=== PATIENT | male | born 1950 | race African-American/Black ===

== ENCOUNTER → 2016-11-13 | Emergency (ER) | payer MEDICARE, MEDICAID ==
[~2016-11-13] VITALS: Ht 177.8 cm; Wt 95.3 kg
[~2016-11-13] MED LIST: ALBUTEROL SULF8.5 GM INH; APRESOLINE50 MG ORAL; ARANESP200 MCG/0. IV; ASPIRIN81 MG ORAL; CARAFATE1 G1 ORAL; COLACE100 MG ORAL; COREG25 MG ORAL; CYMBALTA30 MG ORAL; DEPAKOTE250 MG PO; FAMOTIDINE20 MG ORAL; FERROUS SULFAT325 MG ORAL; FLOMAX0.4 MG ORAL; FLUTICASONE PRO16 G1 NASAL; FUROSEMIDE20 M1 ORAL; GABAPENTIN600 MG ORAL; JANUVIA25 MG ORAL; LEVEMIR FL100 UNIT/1 SUBQ; LIALDA1.2 GM ORAL; LIPITOR20 MG ORAL; LIQUACEL 100 LI30 ML PO; LISINOPRIL20 MG ORAL; MIRALAX17 G2 ORAL; MULTIVITAMINS1 EAC2 ORAL; NITROSTAT0.4 M1 SL; NORVASC5 MG ORAL; NOVOLIN 70/305 UNIT1 SUBQ; NOVOLIN 70100 UNIT/1; NOVOLOG MI100 UNIT/4; NOVOLOG100 UNITS1 SUBQ; PANTOPRAZOLE SO40 MG; PROAIR HFA8.5 GM; PROTONIX40 MG ORAL; RISPERDAL1 MG PO; RISPERIDONE1 MG; RISPERIDONE2 MG; SERTRALINE HCL50 MG; SPIRIVA18 MCG; STARLIX60 MG ORAL; TRAZODONE HCL150 MG ORAL; VENOFER50 MG/2.5 IV; VITAMIN C500 M1 ORAL; ZEMPLAR5 MCG/ML IV; ZESTORETIC 20/251 EA ORAL; ZOLOFT50 MG ORAL
[2016-11-13 18:33] VITALS: BP 166/56
--- NOTE | 2016-11-13 18:33 | Emergency Room Report ---
History of Present Illness General Chief Complaint: Chest Pain Source: Patient, EMS Present Illness HPI Patient presents via EMS from dialysis. Dialysis called EMS because the patient is complaining about chest pain. When they arrived there the patient states he did not have any chest pain. They did an EKG that showed LVH but no STEMI. The patient was brought to our facility here. The patient's refusing further care at this time. He's refused care multiple times before. Risk factors: dialysis, diabetes, HTN and prior CAD. Patient refuses to answer any other questions. Allergies: Coded Allergies: No Known Allergies (Verified , 11/24/07) Patient History Limited by: other - patient refusing to answer Past Medical History: see triage record Social History: Reports: alcohol use, Denies: smoking Social History Narrative assisted living Reviewed Nursing Documentation: PMH: Agreed, PSxH: Agreed Nursing Documentation-PMH Hx Cardiac Problems: Yes Hx Hypertension: Yes Hx Asthma: Yes Hx COPD: Yes Hx Diabetes: Yes Hx Cancer: No Hx Gastrointestinal Problems: No Hx Dialysis: Yes Hx Neurological Problems: No Hx Meningitis: Yes Hx Headaches: Yes Hx Fatigue: Yes Review of Systems All Other Systems: limited Physical Exam Vital Signs Date Time Temp Pulse Resp B/P Pulse Ox O2 Delivery O2 Flow Rate FiO2 11/13/16 18:17 97.2 84 18 166/56 98 Room Air Sp02 EP Interpretation: reviewed, normal General Appearance: well appearing, no apparent distress Head: normocephalic, atraumatic Eyes: bilateral eye PERRL, bilateral eye normal inspection ENT: hearing grossly normal, normal voice, moist mucus membranes Neck: full range of motion, supple Respiratory: rales Cardiovascular #1: regular rate, rhythm Cardiovascular #2: 2+ radial (L) Gastrointestinal: normal bowel sounds, soft Musculoskeletal: gait/station normal - with limp, no calf tenderness Neurologic: alert, other - walks with limp (L leg) Psychiatric: no suicidal/homicidal ideation, depressed affect - and refusing care Skin: no rash Medical Decision Making Diagnostic Impression: Primary Impression: Chest pain Qualified Codes: R07.9 - Chest pain, unspecified Additional Impression: ESRD (end stage renal disease) on dialysis ER Course The patient had chest pain in dialysis however is refusing to have care here at this time. I've explained the risk of . He does not believe this. He states he is pain-free at this time. He is not short of breath. He understands this risk but doesn't believe me. He is signing out AGAINST MEDICAL ADVICE. Prehospital EKG was reviewed by me. It showed sinus rhythm with normal intervals and LVH (similar to 07/18/15). EKG Diagnostic Results Rate: normal Rhythm: NSR ST Segments: no acute changes - LVH Rhythm Strip Diag. Results EP Interpretation: yes Rhythm: NSR, no PVC's, no ectopy, other - from EMS EKG - HR 2 Last Vital Signs Date Time Temp Pulse Resp B/P Pulse Ox O2 Delivery O2 Flow Rate FiO2 11/13/16 18:33 97.2 18 166/56 98 Room Air 11/13/16 18:17 84 Status: unchanged Disposition: AGAINST MEDICAL ADVICE Condition: Unknown Yimi Jesus M.D. Nov 13, 2016 18:33
== END | disposition home or self-care (01) ==
LOC: EDUNIT# 18:17 → EDBD 18:18 → EMR 18:33
DX: R07.9 Chest pain, unspecified (principal); I12.0 Hypertensive chronic kidney disease with stage 5 chronic kidney disease or end stage renal disease; N18.6 End stage renal disease; Z99.2 Dependence on renal dialysis; J44.9 Chronic obstructive pulmonary disease, unspecified; J45.909 Unspecified asthma, uncomplicated; Z86.61 Personal history of infections of the central nervous system
CPT/HCPCS: 99282

== ENCOUNTER 2017-01-12 21:13 | Inpatient (IN) | payer MEDICARE, MEDICAID ==
[~2017-01-12] VITALS: Ht 182.9 cm; Wt 107.0 kg
[~2017-01-12 21:13] MED LIST changes: -CYMBALTA30 MG ORAL; -DEPAKOTE250 MG PO; -FAMOTIDINE20 MG ORAL; -FLUTICASONE PRO16 G1 NASAL; -FUROSEMIDE20 M1 ORAL; -GABAPENTIN600 MG ORAL; -LIALDA1.2 GM ORAL; -LISINOPRIL20 MG ORAL; -MULTIVITAMINS1 EAC2 ORAL; -RISPERDAL1 MG PO; -TRAZODONE HCL150 MG ORAL; -VITAMIN C500 M1 ORAL
[2017-01-12 21:15] VITALS: BP 218/81
--- NOTE | 2017-01-12 21:27 | Emergency Room Report ---
History of Present Illness General Chief Complaint: Dyspnea/Respdistress Source: Patient, Medical Record, EMS Present Illness HPI Is a 66-year-old male with multiple medical history including renal failure on hemodialysis, Thursday, , and Thursday. He presents with increasing shortness of breath started today. Worse tonight. Unable to lay flat. Denies any fever or chills. Ages [place] short of breath but no nausea no vomiting. No chest pain. Similar symptom in the past. Allergies: Coded Allergies: No Known Allergies (Verified , 11/24/07) Patient History Past Medical History: see triage record, old chart reviewed, DM, HTN, CHF, renal disease, dialysis Past Surgical History: other Pertinent Family History: none Social History: Denies: smoking Immunizations: other Reviewed Nursing Documentation: PMH: Agreed, PSxH: Agreed Nursing Documentation-PMH Hx Cardiac Problems: Yes Hx Hypertension: Yes Hx Asthma: Yes Hx COPD: Yes Hx Diabetes: Yes Hx Cancer: No Hx Gastrointestinal Problems: No Hx Dialysis: Yes Hx Neurological Problems: No Hx Meningitis: Yes Hx Headaches: Yes Hx Fatigue: Yes Review of Systems Eye: Denies: blurred vision, eye pain ENT: Denies: ear pain, nose congestion, throat swelling Respiratory: Reports: cough, shortness of breath Cardiovascular: Denies: chest pain, palpitations Gastrointestinal: Denies: abdominal pain, diarrhea, nausea, vomiting Musculoskeletal: Denies: back pain, joint pain Skin: Denies: rash Neurological: Denies: headache, numbness Endocrine: Denies: increased thirst, increased urine Hematologic/Lymphatic: Denies: easy bruising All Other Systems: negative except mentioned in HPI Physical Exam Vital Signs Date Time Temp Pulse Resp B/P Pulse Ox O2 Delivery O2 Flow Rate FiO2 01/12/17 21:06 90 20 218/81 100 vitals with hypotension and hypoxia Sp02 EP Interpretation: abnormal General Appearance: alert, moderate distress Head: normocephalic, atraumatic Eyes: bilateral eye EOMI, bilateral eye PERRL ENT: hearing grossly normal, normal pharynx Neck: full range of motion, supple, no meningismus Respiratory: chest non-tender, decreased breath sounds, accessory muscle use, rales Cardiovascular #1: regular rate, rhythm, no murmur Gastrointestinal: normal bowel sounds, non tender, no mass, no organomegaly, no bruit, non-distended Musculoskeletal: back normal, normal range of motion, swelling - 1+ pitting edema Neurologic: alert, oriented x3 Psychiatric: mood/affect normal Skin: warm/dry Procedures Additional Procedure Procedure Narrative Procedure: IV access Indication: Nursing staff unable to get IV access. Description: I placed an 18-gauge left EJ. Patient tolerated procedure without a problem. We will get blood and gave medicine for this. Medical Decision Making Diagnostic Impression: Primary Impression: CHF (congestive heart failure) Qualified Codes: I50.9 - Heart failure, unspecified Additional Impressions: Acute and chronic respiratory failure Renal failure (ARF), acute on chronic Hypertensive urgency ER Course Patient present with CHF and fluid overloaded. He would need dialysis. There is no evidence of hyperkalemia. Patient felt better now. We'll admit for dialysis. Lab Results Impression labs show elevated BNP EKG Diagnostic Results Rate: normal Rhythm: NSR ST Segments: other - ?peaked T wave Rhythm Strip Diag. Results EP Interpretation: yes Rate: 98 Rhythm: NSR, no PVC's, no ectopy Chest X-Ray Diagnostic Results EP Interpretation: Yes Findings: no pneumothorax, other - CM with effusion Number of Views: 1 Last Vital Signs Date Time Temp Pulse Resp B/P Pulse Ox O2 Delivery O2 Flow Rate FiO2 01/12/17 21:06 90 20 218/81 100 Status: improved Disposition: ADMITTED INPATIENT Condition: Serious ARTEM ANDRADE M.D. Jan 12, 2017 21:27
[2017-01-12 22:53] LABS: MEAN CORPUSCULAR HEMOGLOBIN 28.6 PG (27.0-31.0); MEAN CORPUSCULAR HGB CONC 29.2 G/DL (32.0-36.0); MEAN CORPUSCULAR VOLUME 98 FL (80-99); MEAN PLATELET VOLUME 6.7 FL (6.5-10.1); PLATELET COUNT 145 K/UL (150-450); RED BLOOD COUNT 4.56 M/UL (4.70-6.10); WHITE BLOOD COUNT 8.9 K/UL (4.8-10.8)
[2017-01-12 23:01] LABS: PROTHROMBIN TIME 10.4 SEC (9.30-11.50)
[2017-01-12 23:08] LABS: ALBUMIN/GLOBULIN RATIO 0.9 (1.0-2.7); CALCIUM 8.7 mg/dL (8.6-10.2); CREATININE 8.1 mg/dL (0.7-1.2); GLOMERULAR FILTRATION RATE 8.1 mL/min (>60); TOTAL PROTEIN 8.1 g/dL (6.6-8.7); TROPONIN I < 0.30 ng/mL (<=0.30)
[2017-01-12 23:13] VITALS: BP 194/69
[2017-01-12 23:17] LABS: BASOPHILS % (MANUAL) 1 % (0-2); EOSINOPHILS % (MANUAL) 1 % (0-3); LYMPHOCYTES % (MANUAL) 9 % (20-45); NEUTROPHILS % (MANUAL) 84 % (45-75); TOTAL CELLS COUNTED 100
[2017-01-12 23:19] LABS: CKMB 3.3 ng/mL (< 6.7)
[2017-01-12 23:20] LABS: ANISOCYTOSIS 1+; BAND NEUTROPHILS % (MANUAL) 0 % (0-8); PLATELET ESTIMATE DECREASED; PLATELET MORPHOLOGY NORMAL
[2017-01-12] MEDS ORDERED: Miralax 17gm pkt ORAL PRN (23:45)
[2017-01-12] MEDS ORDERED: DuoNeb 0.5-3(2.5)mg/3ml neb HHN PRN (23:45)
[2017-01-13] VITALS (11 sets, daily range): BP systolic 123–189; BP diastolic 42–62
[2017-01-13] MEDS ORDERED: VITAMIN C500 M1 ORAL (00:52)
[2017-01-13] MEDS ORDERED: FLUTICASONE PRO16 G1 NASAL (00:52)
[2017-01-13] MEDS ORDERED: GABAPENTIN600 MG ORAL (00:52)
[2017-01-13] MEDS ORDERED: TRAZODONE HCL150 MG ORAL (00:52)
[2017-01-13] MEDS ORDERED: FAMOTIDINE20 MG ORAL (00:52)
[2017-01-13] MEDS ORDERED: LIALDA1.2 GM ORAL (00:52)
[2017-01-13] MEDS ORDERED: LISINOPRIL20 MG ORAL (00:52)
[2017-01-13] MEDS ORDERED: CYMBALTA30 MG ORAL (00:52)
[2017-01-13] MEDS ORDERED: DEPAKOTE250 MG PO (00:52)
[2017-01-13] MEDS ORDERED: MULTIVITAMINS1 EAC2 ORAL (00:52)
[2017-01-13] MEDS ORDERED: RISPERDAL1 MG PO (00:52)
[2017-01-13] MEDS ORDERED: FUROSEMIDE20 M1 ORAL (01:56)
[2017-01-13] MEDS: HydrALAZINE 50mg tab ORAL SCH ×3 (06:00→21:12)
[2017-01-13] MEDS: NovoLOG Insulin Flexpen SUBQ SCH ×4 (06:23→21:11)
[2017-01-13 08:19] LABS: BASOPHILS % (AUTO) 1.3 % (0.0-2.0); EOSINOPHILS % (AUTO) 0.9 % (0.0-3.0); LYMPHOCYTES % (AUTO) 13.7 % (20.0-45.0); MEAN CORPUSCULAR HEMOGLOBIN 28.4 PG (27.0-31.0); MEAN CORPUSCULAR HGB CONC 29.1 G/DL (32.0-36.0); MEAN CORPUSCULAR VOLUME 98 FL (80-99); MEAN PLATELET VOLUME 7.6 FL (6.5-10.1); MONOCYTES % (AUTO) 6.9 % (1.0-10.0); NEUTROPHILS % (AUTO) 77.3 % (45.0-75.0); PLATELET COUNT 167 K/UL (150-450); RED BLOOD COUNT 4.79 M/UL (4.70-6.10); RED CELL DISTRIBUTION WIDTH 19.6 % (11.6-14.8); WHITE BLOOD COUNT 6.8 K/UL (4.8-10.8)
[2017-01-13 08:36] LABS: CREATININE 8.4 mg/dL (0.7-1.2); GLOMERULAR FILTRATION RATE 7.9 mL/min (>60); PHOSPHORUS 8.6 mg/dL (2.5-4.8); POTASSIUM 5.4 mEQ/L (3.4-4.9); TROPONIN I < 0.30 ng/mL (<=0.30)
[2017-01-13] MEDS: Nateglinide 60mg tab ORAL SCH ×3 (09:30→18:00)
[2017-01-13] MEDS: Sucralfate 1gm tab ORAL SCH ×4 (09:30→21:12)
[2017-01-13] MEDS: Aspirin Baby 81mg ORAL SCH (09:30)
[2017-01-13] MEDS: Carvedilol 25mg Tab ORAL SCH ×2 (09:46→21:12)
--- NOTE | 2017-01-13 11:19 | Cardiology Report ---
APPROVED REPORT EKG Measurement Heart [id number] Normal sinus rhythm Possible Left atrial enlargement Anteroseptal infarct, age undetermined Abnormal ECG
--- NOTE | 2017-01-13 11:21 | Diagnostic Imaging Report ---
Indication: SOB Technique: One view of the chest Comparison: 04/26/2016 Findings: Previously demonstrated left jugular tunneled dialysis catheter is no longer evident. There is now a right jugular tunneled dialysis catheter in place. Interim development of a large left pleural effusion, occupying approximately 50% of the left the thorax. There is generalized interstitial congestion bilaterally. There is a small right-sided pleural effusion as well. There is mild thoracic scoliotic deformity Impression: Large left pleural effusion Small right pleural effusion Interstitial edema Other findings as noted, including tunneled dialysis catheter, scoliosis
--- NOTE | 2017-01-13 12:07 | Cardiology Report ---
APPROVED REPORT EXAM: Two-dimensional and M-mode echocardiogram with Doppler and color Doppler. INDICATION Left ventricular function M-Mode DIMENSIONS IVSd1.7 (0.7-1.1cm)Left Atrium (MM)4.0 (1.6-4.0cm) LVDd5.3 (3.5-5.6cm)Aortic Root3.1 (2.0-3.7cm) PWd1.0 (0.7-1.1cm)Aortic Cusp Exc.2.0 (1.5-2.0cm) LVDs3.0 (2.5-4.0cm) PWs0.7 cm Normal left ventricular chamber size, systolic function and wall motion. Left ventricular ejection fraction estimated to be 55-60%. Moderate left ventricular hypertrophy. Large posterior pleural effusion. Mild bi-atrial enlargement by 2D. Mild focal aortic valve sclerosis with adequate cusp excursion Thickened mitral valve leaflets with normal excursion. Mild mitral annulus and aortic root calcification. Pulmonic valve not well visualized. Normal tricuspid valve structure. IVC dilated at 2.8cm with no physiologic collapse. RA pressure of 20mmHg. A color flow and spectral Doppler study was performed and revealed: Mild aortic regurgitation. Moderate mitral regurgitation. Normal left ventricular diastolic function. Trace tricuspid regurgitation. Tricuspid systolic velocities suggests peak right ventricular systolic pressure of 34 mmHg
--- NOTE | 2017-01-13 12:49 | Cardiology Progress Note ---
Assessment/Plan Assessment/Plan dyspnea left sided pelural effusion CHF with preserved lv systolic fucntion negative ischemia eval cedluz marina 2016 esrd on hd dm htn hyperl;ipidmai needs dialysis thoracentesis/ med echo ekg noted compared to repvisou no change sicgregg 2016 ar deniz [id number] Objective Last 24 Hour Vital Signs Date Time Temp Pulse Resp B/P Pulse Ox O2 Delivery O2 Flow Rate FiO2 01/13/17 09:46 81 148/44 01/13/17 09:32 77 134/49 01/13/17 07:32 97.3 74 18 139/62 100 Room Air 01/13/17 06:24 99.3 72 22 129/51 98 Nasal Cannula 2.0 01/13/17 06:00 158/50 01/13/17 05:06 99.3 72 22 172/60 98 Nasal Cannula 2.5 01/13/17 04:22 207/61 01/13/17 03:33 99.3 96 25 187/55 98 Nasal Cannula 4.0 01/13/17 00:23 99.3 96 27 189/47 97 Nasal Cannula 4.0 01/13/17 00:03 198/49 01/12/17 23:13 99.3 95 30 194/69 92 Nasal Cannula 4.0 01/12/17 21:15 99.3 90 35 218/81 100 Nasal Cannula 2.0 90 01/12/17 21:15 90 20 Nasal Cannula 2.0 90 01/12/17 21:06 90 20 218/81 100 Intake and Output 01/12/17 01/13/17 19:00 07:00 # Voids 2 Laboratory Tests Test 01/12/17 22:40 01/13/17 08:00 White Blood Count 8.9 K/UL (4.8-10.8) 6.8 K/UL (4.8-10.8) Red Blood Count 4.56 M/UL (4.70-6.10) L 4.79 M/UL (4.70-6.10) Hemoglobin 13.1 G/DL (14.2-18.0) L 13.6 G/DL (14.2-18.0) L Hematocrit 44.7 % (42.0-52.0) 46.8 % (42.0-52.0) Mean Corpuscular Volume 98 FL (80-99) 98 FL (80-99) Mean Corpuscular Hemoglobin 28.6 PG (27.0-31.0) 28.4 PG (27.0-31.0) Mean Corpuscular Hemoglobin Concent 29.2 G/DL (32.0-36.0) L 29.1 G/DL (32.0-36.0) L Red Cell Distribution Width 19.0 % (11.6-14.8) H 19.6 % (11.6-14.8) H Platelet Count 145 K/UL (150-450) L 167 K/UL (150-450) Mean Platelet Volume 6.7 FL (6.5-10.1) 7.6 FL (6.5-10.1) Neutrophils (%) (Auto) % (45.0-75.0) 77.3 % (45.0-75.0) H Lymphocytes (%) (Auto) % (20.0-45.0) 13.7 % (20.0-45.0) L Monocytes (%) (Auto) % (1.0-10.0) 6.9 % (1.0-10.0) Eosinophils (%) (Auto) % (0.0-3.0) 0.9 % (0.0-3.0) Basophils (%) (Auto) % (0.0-2.0) 1.3 % (0.0-2.0) Differential Total Cells Counted 100 Neutrophils % (Manual) 84 % (45-75) H Lymphocytes % (Manual) 9 % (20-45) L Monocytes % (Manual) 5 % (1-10) Eosinophils % (Manual) 1 % (0-3) Basophils % (Manual) 1 % (0-2) Band Neutrophils 0 % (0-8) Platelet Estimate Decreased L Platelet Morphology Normal Anisocytosis 1+ Prothrombin Time 10.4 SEC (9.30-11.50) Prothromb Time International Ratio 1.0 (0.9-1.1) Activated Partial Thromboplast Time 28 SEC (23-33) Sodium Level 139 mEQ/L (135-145) 141 mEQ/L (135-145) Potassium Level 5.0 mEQ/L (3.4-4.9) H 5.4 mEQ/L (3.4-4.9) H Chloride Level 97 mEQ/L (98-107) L 100 mEQ/L (98-107) Carbon Dioxide Level 22 mEQ/L (20-30) 22 mEQ/L (20-30) Anion Gap 20 (5-15) H 19 (5-15) H Blood Urea Nitrogen 75 mg/dL (7-23) H 77 mg/dL (7-23) H Creatinine 8.1 mg/dL (0.7-1.2) H 8.4 mg/dL (0.7-1.2) H Estimat Glomerular Filtration Rate 8.1 mL/min (>60) 7.9 mL/min (>60) Glucose Level 118 mg/dL (74-106) H 137 mg/dL (74-106) H Calcium Level 8.7 mg/dL (8.6-10.2) 9.0 mg/dL (8.6-10.2) Total Bilirubin 0.3 mg/dL (0.0-1.2) Aspartate Amino Transf (AST/SGOT) 23 U/L (5-40) Alanine Aminotransferase (ALT/SGPT) 27 U/L (3-41) Alkaline Phosphatase 86 U/L (40-129) Total Creatine Kinase 68 U/L (38-174) Creatine Kinase MB 3.3 ng/mL (< 6.7) Creatine Kinase MB Relative Index 4.8 Troponin I < 0.30 ng/mL (<=0.30) < 0.30 ng/mL (<=0.30) Pro-B-Type Natriuretic Peptide 92432 pg/mL (0-125) H Total Protein 8.1 g/dL (6.6-8.7) Albumin 4.0 g/dL (3.5-5.2) 4.0 g/dL (3.5-5.2) Globulin 4.1 g/dL Albumin/Globulin Ratio 0.9 (1.0-2.7) L Phosphorus Level 8.6 mg/dL (2.5-4.8) H RAMSES HERNANDEZ Jan 13, 2017 12:49
[2017-01-13] MEDS ORDERED: Tamsulosin 0.4mg cap ORAL SCH (21:00)
[2017-01-13] MEDS ORDERED: Atorvastatin 20mg tab ORAL SCH (21:00)
[2017-01-13] MEDS: Heparin 5000 units/ml inj SUBQ SCH (21:10)
--- NOTE | 2017-01-13 21:48 | History and Physical ---
History of Present Illness General Date patient seen: Jan 13, 2017 Reason for Hospitalization: Dyspnea/Respdistress Present Illness HPI 66-year-old male with pmhx of DM, HTN, renal failure on hemodialysis, presented with increasing shortness of breath started,unable to lay flat. Denies any fever or chills. She was found to to have pulmonary edema and pleural effusion and admitted for further work up. Allergies: Coded Allergies: No Known Allergies (Verified , 11/24/07) Medication History Scheduled Amlodipine Besylate (Norvasc), 5 MG ORAL BID Aspirin* (Aspirin*), 162 MG ORAL DAILY Atorvastatin Calcium* (Lipitor*), 20 MG ORAL BEDTIME Carvedilol (Coreg), 25 MG ORAL EVERY 12 HOURS Darbepoetin Yao in Polysorbat (Aranesp), 200 MCG IV ONCE A WEEK, (Reported) Docusate Sodium* (Colace*), 100 MG ORAL TWICE A DAY Ferrous Sulfate* (Ferrous Sulfate*), 325 MG ORAL DAILY Furosemide* (Lasix*), 20 MG ORAL DAILY, (Reported) Hydralazine HCl (Hydralazine HCl), 50 MG ORAL Q8HR Insulin Aspart (Novolog Flexpen), 0 UNITS SUBQ BEFORE MEALS AND HS Insulin Detemir (Levemir Flexpen), 30 UNITS SUBQ Q24H Insulin Human Isophan/Regular (Humulin 70-30 Vial), Unknown Dose SUBQ PRN, ( Reported) Lisinopril/Hydrochlorothiazide (Zestoretic 20-25 mg Tablet), Unknown Dose ORAL DAILY, (Reported) Nateglinide* (Starlix*), 60 MG ORAL THREE TIMES A DAY Pantoprazole* (Protonix*), 40 MG ORAL DAILY Sertraline Hcl* (Zoloft*), 25 MG ORAL DAILY Sitagliptin* (Januvia*), 25 MG ORAL DAILY Sucralfate* (Carafate*), 1 GM ORAL FOUR TIMES A DAY Tamsulosin HCl (Flomax), 0.4 MG ORAL BEDTIME Scheduled PRN Albuterol Sulfate* (Albuterol Sulfate Mdi*), 2 PUFF INH Q4H PRN for Shortness of Breath Nitroglycerin (Nitrostat), 0.4 MG SL Q5M PRN for Prn Chest Pain Miscellaneous Medications Albuterol Sulfate* (Proair Hfa*), (Reported) Amino Acids/Protein Hydrolys (Liquacel 100 Liquid Packet), 30 ML PO, (Reported) Hum Insulin Nph/Reg Insulin Hm (Novolin 70-30 100 Unit/Ml Vial), (Reported) Insuln Asp Prt/Insulin Aspart (Novolog Mix 70-30 Vial), (Reported) Iron Sucrose Complex (Venofer), 50 MG IV, (Reported) Pantoprazole* (Pantoprazole*), (Reported) Paricalcitol (Zemplar), 5 MCG IV, (Reported) Risperidone (Risperidone), (Reported) Risperidone (Risperidone), (Reported) Sertraline Hcl* (Zoloft*), (Reported) Tiotropium Sarles* (Spiriva*), (Reported) Patient History Healthcare decision maker Resuscitation status Full Code Advanced Directive on File Past Medical/Surgical History Past Medical/Surgical History: (1) ESRD (end stage renal disease) on dialysis (2) Diabetes Review of Systems All Other Systems: negative except mentioned in HPI Physical Exam General Appearance: WD/WN Lines, tubes and drains: peripheral HEENT: normocephalic, atraumatic Neck: non-tender, normal alignment Respiratory/Chest: rhonchi - bilaterally Cardiovascular/Chest: normal peripheral pulses, normal rate Abdomen: normal bowel sounds, non tender Genitourinary/Rectal: normal genital exam Extremities: normal range of motion Last 24 Hour Vital Signs Date Time Temp Pulse Resp B/P Pulse Ox O2 Delivery O2 Flow Rate FiO2 01/13/17 21:12 127/54 01/13/17 21:12 93 127/54 01/13/17 20:33 93 18 Nasal Cannula 2.0 28 01/13/17 20:00 97.7 78 18 142/54 Nasal Cannula 2.0 100 01/13/17 19:45 Room Air 01/13/17 16:25 Room Air 01/13/17 16:00 64 01/13/17 16:00 98.1 66 18 127/54 Nasal Cannula 2.0 100 01/13/17 15:09 64 01/13/17 14:55 80 21 126/40 100 Nasal Cannula 2.0 01/13/17 13:07 97.8 69 21 123/58 100 Nasal Cannula 2.0 01/13/17 11:00 97.3 81 21 146/42 100 Room Air 2.0 90 3/21/17 09:46 81 148/44 01/13/17 09:32 77 134/49 01/13/17 09:15 97.3 80 21 148/44 100 Room Air 2.0 90 01/13/17 07:32 97.3 74 18 139/62 100 Room Air 01/13/17 06:24 99.3 72 22 129/51 98 Nasal Cannula 2.0 01/13/17 06:00 158/50 01/13/17 05:06 99.3 72 22 172/60 98 Nasal Cannula 2.5 01/13/17 04:22 207/61 01/13/17 03:33 99.3 96 25 187/55 98 Nasal Cannula 4.0 01/13/17 00:23 99.3 96 27 189/47 97 Nasal Cannula 4.0 01/13/17 00:03 198/49 01/12/17 23:13 99.3 95 30 194/69 92 Nasal Cannula 4.0 Intake and Output 01/12/17 01/13/17 19:00 07:00 # Voids 2 Laboratory Tests Test 01/12/17 22:40 01/13/17 08:00 White Blood Count 8.9 K/UL (4.8-10.8) 6.8 K/UL (4.8-10.8) Red Blood Count 4.56 M/UL (4.70-6.10) L 4.79 M/UL (4.70-6.10) Hemoglobin 13.1 G/DL (14.2-18.0) L 13.6 G/DL (14.2-18.0) L Hematocrit 44.7 % (42.0-52.0) 46.8 % (42.0-52.0) Mean Corpuscular Volume 98 FL (80-99) 98 FL (80-99) Mean Corpuscular Hemoglobin 28.6 PG (27.0-31.0) 28.4 PG (27.0-31.0) Mean Corpuscular Hemoglobin Concent 29.2 G/DL (32.0-36.0) L 29.1 G/DL (32.0-36.0) L Red Cell Distribution Width 19.0 % (11.6-14.8) H 19.6 % (11.6-14.8) H Platelet Count 145 K/UL (150-450) L 167 K/UL (150-450) Mean Platelet Volume 6.7 FL (6.5-10.1) 7.6 FL (6.5-10.1) Neutrophils (%) (Auto) % (45.0-75.0) 77.3 % (45.0-75.0) H Lymphocytes (%) (Auto) % (20.0-45.0) 13.7 % (20.0-45.0) L Monocytes (%) (Auto) % (1.0-10.0) 6.9 % (1.0-10.0) Eosinophils (%) (Auto) % (0.0-3.0) 0.9 % (0.0-3.0) Basophils (%) (Auto) % (0.0-2.0) 1.3 % (0.0-2.0) Differential Total Cells Counted 100 Neutrophils % (Manual) 84 % (45-75) H Lymphocytes % (Manual) 9 % (20-45) L Monocytes % (Manual) 5 % (1-10) Eosinophils % (Manual) 1 % (0-3) Basophils % (Manual) 1 % (0-2) Band Neutrophils 0 % (0-8) Platelet Estimate Decreased L Platelet Morphology Normal Anisocytosis 1+ Prothrombin Time 10.4 SEC (9.30-11.50) Prothromb Time International Ratio 1.0 (0.9-1.1) Activated Partial Thromboplast Time 28 SEC (23-33) Sodium Level 139 mEQ/L (135-145) 141 mEQ/L (135-145) Potassium Level 5.0 mEQ/L (3.4-4.9) H 5.4 mEQ/L (3.4-4.9) H Chloride Level 97 mEQ/L (98-107) L 100 mEQ/L (98-107) Carbon Dioxide Level 22 mEQ/L (20-30) 22 mEQ/L (20-30) Anion Gap 20 (5-15) H 19 (5-15) H Blood Urea Nitrogen 75 mg/dL (7-23) H 77 mg/dL (7-23) H Creatinine 8.1 mg/dL (0.7-1.2) H 8.4 mg/dL (0.7-1.2) H Estimat Glomerular Filtration Rate 8.1 mL/min (>60) 7.9 mL/min (>60) Glucose Level 118 mg/dL (74-106) H 137 mg/dL (74-106) H Calcium Level 8.7 mg/dL (8.6-10.2) 9.0 mg/dL (8.6-10.2) Total Bilirubin 0.3 mg/dL (0.0-1.2) Aspartate Amino Transf (AST/SGOT) 23 U/L (5-40) Alanine Aminotransferase (ALT/SGPT) 27 U/L (3-41) Alkaline Phosphatase 86 U/L (40-129) Total Creatine Kinase 68 U/L (38-174) Creatine Kinase MB 3.3 ng/mL (< 6.7) Creatine Kinase MB Relative Index 4.8 Troponin I < 0.30 ng/mL (<=0.30) < 0.30 ng/mL (<=0.30) Pro-B-Type Natriuretic Peptide 06392 pg/mL (0-125) H Total Protein 8.1 g/dL (6.6-8.7) Albumin 4.0 g/dL (3.5-5.2) 4.0 g/dL (3.5-5.2) Globulin 4.1 g/dL Albumin/Globulin Ratio 0.9 (1.0-2.7) L Phosphorus Level 8.6 mg/dL (2.5-4.8) H Height (Feet): 6 Height (Inches): 0.00 Weight (Pounds): 236 Medications Current Medications Medications (Trade) Dose Ordered Sig/Praveen Route PRN Reason Start Time Stop Time Status Last Admin Dose Admin Acetaminophen (Tylenol) 650 mg Q4H PRN ORAL Fever 01/12/17 23:45 02/11/17 23:44 Albuterol/ Ipratropium (DuoNeb 0.5-3(2.5)mg/3ml) 3 ml EVERY 4 HOURS PRN HHN Shortness of Breath 01/12/17 23:45 01/17/17 23:44 Amlodipine Besylate (Norvasc) 5 mg BID ORAL 01/13/17 09:00 02/12/17 08:59 01/13/17 09:32 Aspirin (ASA) 162 mg DAILY ORAL 01/13/17 09:00 02/12/17 08:59 01/13/17 09:30 Atorvastatin Calcium (Lipitor) 20 mg BEDTIME ORAL 01/13/17 21:00 02/12/17 20:59 01/13/17 21:12 Carvedilol (Coreg) 25 mg EVERY 12 HOURS ORAL 01/13/17 09:00 02/12/17 08:59 01/13/17 21:12 Dextrose (Dextrose 50%) STAT PRN IV Hypoglycemia 01/12/17 23:45 02/11/17 23:44 Heparin Sodium (Porcine) (Heparin 5000 units/ml) 5,000 units EVERY 12 HOURS SUBQ 01/13/17 21:00 02/12/17 20:59 01/13/17 21:10 Hydralazine HCl (Apresoline) 50 mg Q8HR ORAL 01/13/17 06:00 02/12/17 05:59 01/13/17 21:12 Insulin Aspart (NovoLOG) BEFORE MEALS AND HS SUBQ 01/13/17 06:30 02/12/17 06:29 01/13/17 21:11 Nateglinide (Starlix) 60 mg THREE TIMES A DAY ORAL 01/13/17 09:00 02/12/17 08:59 01/13/17 13:10 Ondansetron HCl (Zofran) 4 mg Q6H PRN IVP Nausea & Vomiting 01/12/17 23:45 02/11/17 23:44 Ondansetron HCl (Zofran) 4 mg Q6H PRN IVP Nausea & Vomiting 01/12/17 23:45 02/11/17 23:44 Polyethylene Glycol (Miralax) 17 gm DAILYPRN PRN ORAL Constipation 01/12/17 23:45 02/11/17 23:44 Sucralfate (Carafate) 1 gm FOUR TIMES A DAY ORAL 01/13/17 09:00 02/12/17 08:59 01/13/17 21:12 Tamsulosin HCl (Flomax) 0.4 mg BEDTIME ORAL 01/13/17 21:00 02/12/17 20:59 01/13/17 21:12 Temazepam (Restoril) 15 mg HSPRN PRN ORAL Insomnia 01/12/17 23:45 01/19/17 23:44 Assessment/Plan Problem List: (1) Acute and chronic respiratory failure ICD Codes: J96.20 - Acute and chronic respiratory failure, unspecified whether with hypoxia or hypercapnia SNOMED: 47809845, 00418691 (2) Pleural effusion ICD Codes: J90 - Pleural effusion, not elsewhere classified SNOMED: 44869640 (3) ESRD (end stage renal disease) on dialysis ICD Codes: N18.6 - End stage renal disease; Z99.2 - Dependence on renal dialysis SNOMED: 442017496 (4) History of hypertension ICD Codes: Z86.79 - History of hypertension SNOMED: 944293159 (5) CHF (congestive heart failure) ICD Codes: I50.9 - Heart failure, unspecified SNOMED: 61677915 (6) Diabetes Assessment/Plan HD obed f/u cxr optimize cardiac meds sliding scale diabetic diet ERICA CARABALLO Jan 13, 2017 21:48
--- NOTE | 2017-01-13 21:59 | Consultation ---
DATE OF CONSULTATION: 01/13/2017 CARDIOLOGY CONSULTATION: REFERRING PHYSICIAN: Denise Rogers M.D. REASON FOR REFERRAL: Shortness of breath. HISTORY OF PRESENT ILLNESS: This is an elderly gentleman, who came into the hospital because of complaints of shortness of breath. The patient tells me he is somewhat of a poor historian and not completely clear how long he has been having symptoms. Nevertheless, he presented to the emergency room at [facility]. As I understand it, he only had one hour of dialysis and has dyspnea on exertion, limited activity apparently. I am not sure that he is able to sleep, but he does have shortness of breath that wakes him up at night he said . No pain or pressure. There is no dizziness or lightheadedness. He does have complaints of palpitations. PAST MEDICAL HISTORY: Obtained from review of the records here and at [facility] where he has been hospitalized previously, history of hypertension, and diabetes mellitus. He has benign prostatic hypertrophy, gastroesophageal reflux disease, hyperlipidemia, history of asthma, arthritis, cardiac arrhythmias, end-stage renal disease on hemodialysis, atypical chest pain, anemia, and alteration in mental status. In 2016, he underwent perfusion imaging at [facility] that showed ejection fraction 64%. No ischemic burden was noted and unchanged since 2013. Right lower extremity DVT acute symptomatic painful swelling DVT and left upper extremity AV fistula malfunction. He was treated with one to three months of anticoagulation at that time back in 2016. ALLERGIES: He is not allergic to any medications. SOCIAL HISTORY: He does not smoke or drink alcoholic beverages. He denies drinking alcoholic beverages using drugs or smoking. Not clear where he actually resides, although there is some information from a nurse stated that up to approximately one month ago he was resident at [facility]. REVIEW OF SYSTEMS: Gastrointestinal: He denies any nausea or vomiting. No diarrhea. No black or bloody stools. Genitourinary: Denies any making any urine. Pulmonary: Denies any coughing or wheezing. Constitutional: Denies any fevers, chills, or night sweats. PHYSICAL EXAMINATION: GENERAL: Shows to be elderly gentleman, in no respiratory distress although he is sitting up in bed. There is a dialysis catheter or shock noted . NECK: Supple. LUNGS: There is crackles in left base more so than on the right base. CARDIAC: Regular rate and rhythm. No heaves or thrills noted. ABDOMEN: Soft and nontender. Positive bowel sounds. He has 1+ edema of the lower extremities bilaterally. NEUROLOGIC: He is awake, alert, and responsive. LABORATORY VALUES: White count 6.8, hemoglobin 13.6, and platelet count of 167,000. His sodium is 141, potassium 5.4, chloride 100, bicarbonate 24, BUN 77, creatinine 8.4, and glucose of 137. Calcium is 9.0. Phosphorus of 8.6. Cardiac enzymes on two separate occasions over 10 hours apart is less than 0.3. His albumin is 4. He did have some liver function tests at the time of his presentation yesterday that were all normal. His proBNP of questionable significance 14,000 in light of his renal failure. Chest x-ray shows left jugular tunneled dialysis catheter no longer being evident now a right jugular tunnel catheter in place. Large left-sided pleural effusion approximately 50% left thorax generally interstitial congestion. There is a small right-sided pleural effusion as well. Of note, his EKG is unchanged since prior EKG in [address] [facility]. Brian Alex M.D. : [place] JOB#: [id number] CC:
[2017-01-14 00:22] VITALS: BP 134/56
[2017-01-14 04:18] VITALS: BP 133/62
[2017-01-14] MEDS: HydrALAZINE 50mg tab ORAL SCH ×2 (06:29→13:47)
[2017-01-14] MEDS: NovoLOG Insulin Flexpen SUBQ SCH ×3 (06:29→16:30)
[2017-01-14 08:00] VITALS: BP 128/46
[2017-01-14 08:01] LABS: CALCIUM 8.5 mg/dL (8.6-10.2); CREATININE 7.3 mg/dL (0.7-1.2); GLOMERULAR FILTRATION RATE 9.2 mL/min (>60); POTASSIUM 3.9 mEQ/L (3.4-4.9); TOTAL PROTEIN 6.4 g/dL (6.6-8.7)
[2017-01-14 08:02] LABS: BASOPHILS % (AUTO) 1.5 % (0.0-2.0); LYMPHOCYTES % (AUTO) 22.1 % (20.0-45.0); MEAN CORPUSCULAR HEMOGLOBIN 28.9 PG (27.0-31.0); MEAN CORPUSCULAR HGB CONC 30.9 G/DL (32.0-36.0); MEAN CORPUSCULAR VOLUME 94 FL (80-99); MEAN PLATELET VOLUME 8.7 FL (6.5-10.1); MONOCYTES % (AUTO) 10.5 % (1.0-10.0); NEUTROPHILS % (AUTO) 61.9 % (45.0-75.0); PLATELET COUNT 132 K/UL (150-450); RED BLOOD COUNT 3.97 M/UL (4.70-6.10); RED CELL DISTRIBUTION WIDTH 19.1 % (11.6-14.8); WHITE BLOOD COUNT 4.1 K/UL (4.8-10.8)
[2017-01-14 08:06] LABS: TROPONIN I < 0.30 ng/mL (<=0.30)
[2017-01-14] MEDS: Heparin 5000 units/ml inj SUBQ SCH (08:11)
[2017-01-14] MEDS: Sucralfate 1gm tab ORAL SCH ×3 (08:53→18:00)
[2017-01-14] MEDS: Nateglinide 60mg tab ORAL SCH ×3 (08:53→18:00)
[2017-01-14] MEDS: Aspirin Baby 81mg ORAL SCH (08:53)
[2017-01-14] MEDS: Carvedilol 25mg Tab ORAL SCH (08:54)
--- NOTE | 2017-01-14 11:59 | Diagnostic Imaging Report ---
Indication: Dyspnea Comparison: 01/12/17 A single view chest radiograph was obtained. Findings: Permacath, cardiomegaly and left pleural effusion are again demonstrated. There is evidence of CHF but some improvement noted in this regard. Impression: Mild CHF slightly improved from the previous exam. Left pleural effusion
[2017-01-14 12:00] VITALS: BP 143/68
--- NOTE | 2017-01-14 12:23 | Consultation ---
Consult Note Consult Note asked to eval for dialysis management- Is a 66-year-old male with multiple medical history including renal failure on hemodialysis, Thursday, , and Thursday. He presents with increasing shortness of breath started today. Worse tonight. Unable to lay flat. Denies any fever or chills. [place] short of breath but no nausea no vomiting. No chest pain. Similar symptom in the past. Hx Cardiac Problems: Yes Hx Hypertension: Yes Hx Asthma: Yes Hx COPD: Yes Hx Diabetes: Yes Hx Dialysis: Yes Hx Meningitis: Yes Hx Headaches: Yes Hx Fatigue: Yes .patient interviewed and examined and data reviewed Assessment/Plan status: dyspnea left sided pelural effusion CHF with preserved lv systolic fucntion negative ischemia eval [facility] 2015 ESRD on HD : URGENT HD ORDERED 01/13 AND WAS DONE DM HTN OOC hyperl;ipidmai Plan; Continue dialysis as needed thoracentesis/ optimize cardiac status 2 D echo ERIC THOMAS Jan 14, 2017 12:23
--- NOTE | 2017-01-14 13:18 | Diagnostic Imaging Report ---
APPROVED REPORT CPT Code: 01363 Present Symptoms Shortness of breath Comments: CP BILATERAL: Imaging reveals a patent deep venous system bilaterally. There is no evidence of thrombus within the femoral, popliteal or tibial segments. The greater saphenous veins are also within normal limits. Doppler indicates normal spontaneous flow within these segments.
[2017-01-14 16:00] VITALS: BP 124/42
--- NOTE | 2017-01-14 16:26 | Pulmonology Progress Note ---
Assessment/Plan Problems: (1) Acute and chronic respiratory failure (2) Pleural effusion (3) ESRD (end stage renal disease) on dialysis (4) History of hypertension (5) CHF (congestive heart failure) (6) Diabetes Assessment/Plan had Hd large pleural effusion sliding scale, HD with removal of more fluids Subjective ROS Limited/Unobtainable: No Constitutional: Reports: no symptoms HEENT: Repors: no symptoms Allergies: Coded Allergies: No Known Allergies (Verified , 11/24/07) Objective Last 24 Hour Vital Signs Date Time Temp Pulse Resp B/P Pulse Ox O2 Delivery O2 Flow Rate FiO2 01/14/17 13:47 143/68 01/14/17 12:00 69 01/14/17 12:00 96.9 74 17 143/68 97 Nasal Cannula 2.0 01/14/17 08:54 74 128/46 01/14/17 08:53 74 128/46 01/14/17 08:03 71 16 Nasal Cannula 2.0 28 01/14/17 08:03 94 Nasal Cannula 2.0 28 01/14/17 08:03 Nasal Cannula 2.0 28 01/14/17 08:00 98.4 74 17 128/46 96 Room Air 01/14/17 08:00 76 01/14/17 06:29 133/62 01/14/17 04:18 98.4 81 21 133/62 97 Nasal Cannula 2.0 01/14/17 04:00 70 01/14/17 00:22 98.5 76 19 134/56 94 Nasal Cannula 2.0 01/14/17 00:00 69 01/13/17 21:12 127/54 01/13/17 21:12 93 127/54 01/13/17 20:33 93 18 Nasal Cannula 2.0 28 01/13/17 20:00 64 01/13/17 20:00 97.7 78 18 142/54 Nasal Cannula 2.0 100 01/13/17 19:45 Room Air 01/13/17 16:25 Room Air Intake and Output 01/13/17 01/14/17 19:00 07:00 Intake Total 300 ml Output Total 500 ml 2000 ml Balance -200 ml -2000 ml Intake Oral 300 ml Output Urine Total 500 ml Hemodialysis UF 2000 ml # Bowel Movements 1 General Appearance: WD/WN HEENT: normocephalic, atraumatic Respiratory/Chest: chest wall non-tender, lungs clear Cardiovascular: normal peripheral pulses, normal rate Abdomen: normal bowel sounds, soft, non tender Genitourinary: normal external genitalia Extremities: no clubbing Skin: no ulcers Laboratory Tests 01/14/17 07:07: White Blood Count 4.1L, Red Blood Count 3.97L, Hemoglobin 11.5L, Hematocrit 37.1L, Mean Corpuscular Volume 94, Mean Corpuscular Hemoglobin 28.9, Mean Corpuscular Hemoglobin Concent 30.9L, Red Cell Distribution Width 19.1H, Platelet Count 132L, Mean Platelet Volume 8.7, Neutrophils (%) (Auto) 61.9, Lymphocytes (%) (Auto) 22.1, Monocytes (%) (Auto) 10.5H, Eosinophils (%) (Auto) 4.0H, Basophils (%) (Auto) 1.5, Sodium Level 139, Potassium Level 3.9, Chloride Level 95L, Carbon Dioxide Level 28, Anion Gap 16H, Blood Urea Nitrogen 64H, Creatinine 7.3H, Estimat Glomerular Filtration Rate 9.2, Glucose Level 108H, Calcium Level 8.5L, Total Bilirubin 0.4, Aspartate Amino Transf (AST/SGOT) 17, Alanine Aminotransferase (ALT/SGPT) 23, Alkaline Phosphatase 67, Troponin I < 0.30, Total Protein 6.4L, Albumin 3.3L, Globulin 3.1, Albumin/Globulin Ratio 1.0 Current Medications Medications (Trade) Dose Ordered Sig/Praveen Route PRN Reason Start Time Stop Time Status Last Admin Dose Admin Acetaminophen (Tylenol) 650 mg Q4H PRN ORAL Fever 01/12/17 23:45 02/11/17 23:44 Albuterol/ Ipratropium (DuoNeb 0.5-3(2.5)mg/3ml) 3 ml EVERY 4 HOURS PRN HHN Shortness of Breath 01/12/17 23:45 01/17/17 23:44 Amlodipine Besylate (Norvasc) 5 mg BID ORAL 01/13/17 09:00 02/12/17 08:59 01/14/17 08:53 Aspirin (ASA) 162 mg DAILY ORAL 01/13/17 09:00 02/12/17 08:59 01/14/17 08:53 Atorvastatin Calcium (Lipitor) 20 mg BEDTIME ORAL 01/13/17 21:00 02/12/17 20:59 01/13/17 21:12 Carvedilol (Coreg) 25 mg EVERY 12 HOURS ORAL 01/13/17 09:00 02/12/17 08:59 01/14/17 08:54 Dextrose (Dextrose 50%) STAT PRN IV Hypoglycemia 01/12/17 23:45 02/11/17 23:44 Heparin Sodium (Porcine) (Heparin 5000 units/ml) 5,000 units EVERY 12 HOURS SUBQ 01/13/17 21:00 02/12/17 20:59 01/13/17 21:10 Hydralazine HCl (Apresoline) 50 mg Q8HR ORAL 01/13/17 06:00 02/12/17 05:59 01/14/17 13:47 Insulin Aspart (NovoLOG) BEFORE MEALS AND HS SUBQ 01/13/17 06:30 02/12/17 06:29 01/14/17 11:50 Nateglinide (Starlix) 60 mg THREE TIMES A DAY ORAL 01/13/17 09:00 02/12/17 08:59 01/14/17 13:47 Ondansetron HCl (Zofran) 4 mg Q6H PRN IVP Nausea & Vomiting 01/12/17 23:45 02/11/17 23:44 Ondansetron HCl (Zofran) 4 mg Q6H PRN IVP Nausea & Vomiting 01/12/17 23:45 02/11/17 23:44 Polyethylene Glycol (Miralax) 17 gm DAILYPRN PRN ORAL Constipation 01/12/17 23:45 02/11/17 23:44 Sucralfate (Carafate) 1 gm FOUR TIMES A DAY ORAL 01/13/17 09:00 02/12/17 08:59 01/14/17 13:47 Tamsulosin HCl (Flomax) 0.4 mg BEDTIME ORAL 01/13/17 21:00 02/12/17 20:59 01/13/17 21:12 Temazepam (Restoril) 15 mg HSPRN PRN ORAL Insomnia 01/12/17 23:45 01/19/17 23:44 ERICA CARABALLO Jan 14, 2017 16:26
--- NOTE | 2017-01-14 18:51 | Cardiology Progress Note ---
Assessment/Plan Assessment/Plan dyspnea left sided pleural effusion CHF with preserved lv systolic function negative ischemia eval [facility] 2016 esrd on hd dm htn hyperlipidemia moderate MR dilated ivc suggestive of increased RA pressure at time of presentation planned dialysis thoracentesis? med echo all trop neg tele neg ok to dc tele Subjective Cardiovascular: Denies: chest pain, irregular heart rate, lightheadedness, palpitations Respiratory: Denies: SOB with excertion, shortness of breath Gastrointestinal/Abdominal: Denies: abdominal pain Objective Last 24 Hour Vital Signs Date Time Temp Pulse Resp B/P Pulse Ox O2 Delivery O2 Flow Rate FiO2 01/14/17 16:00 97.7 64 18 124/42 Nasal Cannula 2.0 100 01/14/17 13:47 143/68 01/14/17 12:00 69 01/14/17 12:00 96.9 74 17 143/68 97 Nasal Cannula 2.0 01/14/17 08:54 74 128/46 01/14/17 08:53 74 128/46 01/14/17 08:03 71 16 Nasal Cannula 2.0 28 01/14/17 08:03 94 Nasal Cannula 2.0 28 01/14/17 08:03 Nasal Cannula 2.0 28 01/14/17 08:00 98.4 74 17 128/46 96 Room Air 01/14/17 08:00 76 01/14/17 06:29 133/62 01/14/17 04:18 98.4 81 21 133/62 97 Nasal Cannula 2.0 01/14/17 04:00 70 01/14/17 00:22 98.5 76 19 134/56 94 Nasal Cannula 2.0 01/14/17 00:00 69 01/13/17 21:12 127/54 01/13/17 21:12 93 127/54 01/13/17 20:33 93 18 Nasal Cannula 2.0 28 01/13/17 20:00 64 01/13/17 20:00 97.7 78 18 142/54 Nasal Cannula 2.0 100 01/13/17 19:45 Room Air General Appearance: no apparent distress, alert Neck: supple Cardiovascular: normal rate, regular rhythm Respiratory/Chest: decreased breath sounds - left base Abdomen: normal bowel sounds, non tender, soft Extremities: moderate edema Intake and Output 01/13/17 01/14/17 19:00 07:00 Intake Total 300 ml Output Total 500 ml 2000 ml Balance -200 ml -2000 ml Intake Oral 300 ml Output Urine Total 500 ml Hemodialysis UF 2000 ml # Bowel Movements 1 Laboratory Tests Test 01/14/17 07:07 White Blood Count 4.1 K/UL (4.8-10.8) L Red Blood Count 3.97 M/UL (4.70-6.10) L Hemoglobin 11.5 G/DL (14.2-18.0) L Hematocrit 37.1 % (42.0-52.0) L Mean Corpuscular Volume 94 FL (80-99) Mean Corpuscular Hemoglobin 28.9 PG (27.0-31.0) Mean Corpuscular Hemoglobin Concent 30.9 G/DL (32.0-36.0) L Red Cell Distribution Width 19.1 % (11.6-14.8) H Platelet Count 132 K/UL (150-450) L Mean Platelet Volume 8.7 FL (6.5-10.1) Neutrophils (%) (Auto) 61.9 % (45.0-75.0) Lymphocytes (%) (Auto) 22.1 % (20.0-45.0) Monocytes (%) (Auto) 10.5 % (1.0-10.0) H Eosinophils (%) (Auto) 4.0 % (0.0-3.0) H Basophils (%) (Auto) 1.5 % (0.0-2.0) Sodium Level 139 mEQ/L (135-145) Potassium Level 3.9 mEQ/L (3.4-4.9) Chloride Level 95 mEQ/L (98-107) L Carbon Dioxide Level 28 mEQ/L (20-30) Anion Gap 16 (5-15) H Blood Urea Nitrogen 64 mg/dL (7-23) H Creatinine 7.3 mg/dL (0.7-1.2) H Estimat Glomerular Filtration Rate 9.2 mL/min (>60) Glucose Level 108 mg/dL (74-106) H Calcium Level 8.5 mg/dL (8.6-10.2) L Total Bilirubin 0.4 mg/dL (0.0-1.2) Aspartate Amino Transf (AST/SGOT) 17 U/L (5-40) Alanine Aminotransferase (ALT/SGPT) 23 U/L (3-41) Alkaline Phosphatase 67 U/L (40-129) Troponin I < 0.30 ng/mL (<=0.30) Total Protein 6.4 g/dL (6.6-8.7) L Albumin 3.3 g/dL (3.5-5.2) L Globulin 3.1 g/dL Albumin/Globulin Ratio 1.0 (1.0-2.7) RAMSES HERNANDEZ Jan 14, 2017 18:51
--- NOTE | 2017-01-16 13:22 | Discharge Summary ---
Discharge Summary Hospital Course Date of Admission Jan 12, 2017 at 23:20 Date of Discharge Jan 14, 2017 at 21:35 Admitting Diagnosis CHF HPI Marce Miller is a 66 year old male who was admitted on Jan 12, 2017 at 23:20 for Congestive Heart Failure Hospital Course [id number] Discharge Discharge Disposition Patient was discharged to Home (01) Discharge Diagnoses: Esthela Massey NP Jan 16, 2017 13:22
--- NOTE | 2017-01-17 00:08 | Discharge Summary 2 SIG ---
DATE OF ADMISSION: 01/12/2017 DATE OF DISCHARGE: 01/14/2017 CONSULTANTS: 1. Brian Alex M.D. 2. Mirza Conde M.D. BRIEF HOSPITAL COURSE: The patient is a 66-year-old male with diabetes mellitus, hypertension, renal failure on hemodialysis, who presented to ED complaining of increased shortness of breath and unable to lay flat. On evaluation at ED, he was found to have pulmonary edema, pleural effusion and fluid overload. Dr. Alex was consulted. ProBNP is of questionable significance 14,000 in light of his renal failure. X-ray with left-sided pleural effusion approximately 50% of the left thorax generally interstitial congestion and a small right-sided pleural effusion as well. EKG has been unchanged since prior EKG in 2016 in comparison with [facility]. He was seen by Dr. Conde and urgent hemodialysis was ordered on 01/13/2017 and was done. However, full treatment was not carried out, as the patient left against medical advice. FINAL DIAGNOSES: 1. Acute on chronic respiratory failure. 2. Pleural effusion. 3. End-stage renal disease, on hemodialysis. 4. Acute on chronic systolic congestive heart failure. 5. Diabetes mellitus. 6. Hypertension. 7. Hyperlipidemia. 8. Moderate mitral regurgitation. 9. Dilated inferior vena cava suggestive of increased right atrial pressure. 10. Noncompliance with medical treatment, as the patient signed out against medical advice. Denise Rogers M.D. I have been assigned to dictate discharge summary on this account and I was not involved in the patient's management. Esthela Massey N.P. DR: REYES JOB#: [id number] CC:
--- NOTE | 2017-01-18 18:28 | Cardiology Report ---
APPROVED REPORT EKG Measurement Heart [id number] Normal sinus rhythm Possible Left atrial enlargement Anterior infarct, age undetermined Abnormal ECG
== END 2017-01-14 21:35 | disposition left against medical advice (07) | DRG 291 ==
LOC: EDBD 21:13 → EMR 21:29 → 2W 23:20 → EDBEDREQ 01-13 14:02 → 2E 01-13 14:13
DX: I13.2 Hypertensive heart and chronic kidney disease with heart failure and with stage 5 chronic kidney disease, or end stage renal disease (principal); N18.6 End stage renal disease; J96.00 Acute respiratory failure, unspecified whether with hypoxia or hypercapnia; I50.23 Acute on chronic systolic (congestive) heart failure; Z99.2 Dependence on renal dialysis; I16.0 Hypertensive urgency; E78.5 Hyperlipidemia, unspecified; E11.22 Type 2 diabetes mellitus with diabetic chronic kidney disease; N40.0 Benign prostatic hyperplasia without lower urinary tract symptoms; K21.9 Gastro-esophageal reflux disease without esophagitis; I34.0 Nonrheumatic mitral (valve) insufficiency; Z91.19 Patient's noncompliance with other medical treatment and regimen
CPT/HCPCS: 36415; 71010; 80053; 80069; 82550; 82553; 82962; 83880; 84484; 85007; 85025; 85610; 85730; 93005; 93306; 93970; 94664; 94760; J1815

== ENCOUNTER 2018-06-14 13:14 | Inpatient (IN) | payer MEDICARE, MEDICAID ==
[~2018-06-14] VITALS: Ht 175.3 cm; Wt 91.7 kg
[~2018-06-14 13:14] MED LIST changes: +CYMBALTA30 MG ORAL; +DEPAKOTE250 MG PO; +FAMOTIDINE20 MG ORAL; +FLUTICASONE PRO16 G1 NASAL; +FUROSEMIDE20 M1 ORAL; +GABAPENTIN600 MG ORAL; +LIALDA1.2 GM ORAL; +LISINOPRIL20 MG ORAL; +MULTIVITAMINS1 EAC2 ORAL; +RISPERDAL1 MG PO; +TRAZODONE HCL150 MG ORAL; +VITAMIN C500 M1 ORAL
[2018-06-14 14:21] VITALS: BP 189/60
[2018-06-14 14:51] LABS: HEMATOCRIT 24.3 % (42.0-52.0); HEMOGLOBIN 7.7 G/DL (14.2-18.0); MEAN CORPUSCULAR VOLUME 100 FL (80-99); PLATELET COUNT 139 K/UL (150-450); RED BLOOD COUNT 2.43 M/UL (4.70-6.10); RED CELL DISTRIBUTION WIDTH 15.4 % (11.6-14.8); WHITE BLOOD COUNT 3.4 K/UL (4.8-10.8)
[2018-06-14] MEDS ORDERED: ASPIR 8181 MG ORAL (14:56)
[2018-06-14 14:57] LABS: ANION GAP 11 mmol/L (5-15); BLOOD UREA NITROGEN 72 mg/dL (7-18); CALCIUM 8.7 MG/DL (8.5-10.1); CARBON DIOXIDE 25 MMOL/L (21-32); CHLORIDE 104 MMOL/L (98-107); CREATININE 9.3 MG/DL (0.55-1.30); POTASSIUM 4.9 MMOL/L (3.5-5.1); SODIUM 140 MMOL/L (136-145)
[2018-06-14] MEDS ORDERED: SEROQUEL100 MG ORAL (15:00)
[2018-06-14] MEDS ORDERED: MELATONIN3 MG ORAL (15:00)
[2018-06-14] MEDS ORDERED: FAMOTIDINE40 MG ORAL (15:00)
[2018-06-14] MEDS ORDERED: TRAMADOL HCL50 MG ORAL (15:00)
[2018-06-14] MEDS ORDERED: ATORVASTATIN CA20 MG ORAL (15:00)
[2018-06-14] MEDS ORDERED: SENNOSIDES8.6 MG ORAL (15:00)
[2018-06-14] MEDS ORDERED: BISACODYL5 MG ORAL (15:00)
[2018-06-14 15:01] LABS: ALANINE AMINOTRANSFERASE 15 U/L (12-78); ALBUMIN 3.1 G/DL (3.4-5.0); ALBUMIN/GLOBULIN RATIO 0.8 (1.0-2.7); ALKALINE PHOSPHATASE 127 U/L (46-116); ASPARTATE AMINO TRANSFERASE 13 U/L (15-37); BILIRUBIN,TOTAL 0.3 MG/DL (0.2-1.0)
--- NOTE | 2018-06-14 16:15 | Emergency Room Report ---
History of Present Illness General Chief Complaint: Generalized Weakness Source: Patient, Medical Record Present Illness HPI 67-year-old male presents ED for evaluation. Patient brought from custodial facility. Per nursing staff patient does not follow orders refuses care. At risk for elopement. Patient has been evaluated by psychiatry. Upon arrival patient is not cooperative and is not answering questions. History of end-stage renal disease and is on dialysis. No reported chest pain or shortness of breath. No signs of distress. No other aggravating relieving factors. No other associated symptoms Allergies: Coded Allergies: No Known Allergies (Verified , 11/24/07) Patient History Past Medical History: DM, HTN, asthma, COPD, renal disease, dialysis Past Surgical History: none Pertinent Family History: none Social History: Denies: smoking, alcohol use, drug use Immunizations: UTD Reviewed Nursing Documentation: PMH: Agreed; PSxH: Agreed Nursing Documentation-PMH Hx Cardiac Problems: Yes Hx Hypertension: Yes Hx Asthma: Yes Hx COPD: Yes Hx Diabetes: Yes Hx Cancer: No Hx Gastrointestinal Problems: No Hx Dialysis: Yes Hx Neurological Problems: No Hx Meningitis: Yes Hx Headaches: Yes Hx Fatigue: Yes Review of Systems All Other Systems: negative except mentioned in HPI Physical Exam Vital Signs Date Time Temp Pulse Resp B/P (MAP) Pulse Ox O2 Delivery O2 Flow Rate FiO2 06/14/18 13:25 97.9 84 18 166/64 97 Room Air 97.9 Sp02 EP Interpretation: reviewed, normal General Appearance: no apparent distress, other - agitated Head: normocephalic, atraumatic Eyes: bilateral eye normal inspection, bilateral eye PERRL ENT: hearing grossly normal, normal pharynx, no angioedema, normal voice Neck: full range of motion, supple/symm/no masses Respiratory: chest non-tender, lungs clear, normal breath sounds, speaking full sentences Cardiovascular #1: regular rate, rhythm, no edema Cardiovascular #2: 2+ carotid (R), 2+ carotid (L), 2+ radial (R), 2+ radial (L) , 2+ dorsalis pedis (R), 2+ dorsalis pedis (L) Gastrointestinal: normal bowel sounds, non tender, soft, non-distended, no guarding, no rebound Rectal: deferred Genitourinary: normal inspection, no CVA tenderness Musculoskeletal: back normal, gait/station normal, normal range of motion, non- tender Neurologic: other - agitated Psychiatric: other - agitate Reflexes: 3+ bicep (R), 3+ bicep (L), 3+ tricep (R), 3+ tricep (L), 3+ knee (R) , 3+ knee (L) Skin: normal color, no rash, warm/dry, well hydrated Lymphatic: no adenopathy Medical Decision Making Diagnostic Impression: Primary Impression: ESRD (end stage renal disease) on dialysis Additional Impressions: Encephalopathy Anemia Qualified Codes: D64.9 - Anemia, unspecified ER Course Hospital Course 67-year-old male presents to ED with erratic behavior at facility Differential diagnoses include: hyperuremia, psychosis, dementia Clinical course patient placed on stretcher. 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 After initial history and physical ordered labs patient has difficult IV access; I placed peripheral EJ line Labs reviewed - BUN/Cr elevated, no leukocytosis, hb/hct 7.7/24.[address] Ward; agrees the patient will require admission for further evaluation case discussed with Dr. Blanchard and he agreed to accept the patient to his service for further care and support i. I feel this is a highly complex case requiring extensive working including EKG/Rhythm strip, Xray/CT/US, Blood/urine lab work, repeat exams while in ED, and administration of strong opiates/narcotics for pain control, admission to hospital or close patient follow up. Diagnosis - ESRD on dialysis, encephalopatphy, anemia Admitted to floor in serious condition Labs Test 06/14/18 14:30 White Blood Count 3.4 K/UL (4.8-10.8) Red Blood Count 2.43 M/UL (4.70-6.10) Hemoglobin 7.7 G/DL (14.2-18.0) Hematocrit 24.3 % (42.0-52.0) Mean Corpuscular Volume 100 FL (80-99) Mean Corpuscular Hemoglobin 31.5 PG (27.0-31.0) Mean Corpuscular Hemoglobin Concent 31.6 G/DL (32.0-36.0) Red Cell Distribution Width 15.4 % (11.6-14.8) Platelet Count 139 K/UL (150-450) Mean Platelet Volume 6.6 FL (6.5-10.1) Neutrophils (%) (Auto) % (45.0-75.0) Lymphocytes (%) (Auto) % (20.0-45.0) Monocytes (%) (Auto) % (1.0-10.0) Eosinophils (%) (Auto) % (0.0-3.0) Basophils (%) (Auto) % (0.0-2.0) Differential Total Cells Counted 100 Neutrophils % (Manual) 58 % (45-75) Lymphocytes % (Manual) 25 % (20-45) Monocytes % (Manual) 11 % (1-10) Eosinophils % (Manual) 6 % (0-3) Basophils % (Manual) 0 % (0-2) Band Neutrophils 0 % (0-8) Platelet Estimate Decreased Platelet Morphology Normal Hypochromasia 2+ Anisocytosis 2+ Macrocytosis 1+ Sodium Level 140 MMOL/L (136-145) Potassium Level 4.9 MMOL/L (3.5-5.1) Chloride Level 104 MMOL/L (98-107) Carbon Dioxide Level 25 MMOL/L (21-32) Anion Gap 11 mmol/L (5-15) Blood Urea Nitrogen 72 mg/dL (7-18) Creatinine 9.3 MG/DL (0.55-1.30) Estimat Glomerular Filtration Rate 6.9 mL/min (>60) Glucose Level 121 MG/DL (74-106) Calcium Level 8.7 MG/DL (8.5-10.1) Total Bilirubin 0.3 MG/DL (0.2-1.0) Aspartate Amino Transf (AST/SGOT) 13 U/L (15-37) Alanine Aminotransferase (ALT/SGPT) 15 U/L (12-78) Alkaline Phosphatase 127 U/L (46-116) Total Protein 7.2 G/DL (6.4-8.2) Albumin 3.1 G/DL (3.4-5.0) Globulin 4.1 g/dL Albumin/Globulin Ratio 0.8 (1.0-2.7) Salicylates Level 1.5 ug/mL (2.8-20) Acetaminophen Level < 2 MCG/ML (10-30) Serum Alcohol < 3 mg/dL Last Vital Signs Date Time Temp Pulse Resp B/P (MAP) Pulse Ox O2 Delivery O2 Flow Rate FiO2 8/20/18 14:21 76 18 189/60 99 Room Air 06/14/18 13:25 97.9 97.9 Status: improved Disposition: ADMITTED INPATIENT Condition: Serious Referrals: Pippa Jay MD (PCP) Gigi Bonilla MD Jun 14, 2018 16:15
[2018-06-14] MEDS ORDERED: ASPIRIN EC81 MG ORAL (18:56)
[2018-06-14] MEDS ORDERED: FAMOTIDINE20 MG ORAL (18:58)
[2018-06-14] MEDS ORDERED: MIRALAX17 G2 ORAL (19:00)
[2018-06-14] MEDS ORDERED: SENNA8.6 M2 PO (19:00)
[2018-06-14] MEDS ORDERED: ATORVASTATIN CA10 MG ORAL (19:03)
[2018-06-14] MEDS ORDERED: EPOGEN20000 UNIT SUBQ (19:10)
[2018-06-14] MEDS ORDERED: HUMALOG100 UNIT/4 SUBQ (19:10)
[2018-06-14 22:05] VITALS: BP 192/77
[2018-06-14] MEDS ORDERED: HydrALAZINE 10mg Tab ORAL PRN (22:45)
[2018-06-14] MEDS ORDERED: Miralax 17gm pkt ORAL PRN (23:15)
[2018-06-14] MEDS ORDERED: traMADol 50mg tab ORAL PRN (23:15)
[2018-06-14 23:24] LABS: APPEARANCE,URINE CLEAR; BILIRUBIN, URINE NEGATIVE (NEGATIVE); COLOR,URINE PALE YELLOW; GLUCOSE, URINE (UA) 2+ (NEGATIVE); KETONES,URINE NEGATIVE (NEGATIVE); LEUKOCYTE ESTERASE ,URINE 1+ (NEGATIVE); NITRITE,URINE NEGATIVE (NEGATIVE); PH,URINE 6.5 (4.5-8.0); PROTEIN,URINE 4+ (NEGATIVE); UROBILINOGEN,URINE NORMAL MG/DL (0.0-1.0)
--- NOTE | 2018-06-14 23:51 | History and Physical ---
History of Present Illness General Date patient seen: Jun 14, 2018 Time patient seen: 18:25 Reason for Hospitalization: Generalized Weakness Present Illness HPI 67-year-old man brought from shelter facility for hostility, agitation and orders refuses care. He was at risk for elopement. Upon arrival to ED, patient was not cooperative and is not answering questions. No reported chest pain or shortness of breath. No signs of distress. No other aggravating relieving factors. No other associated symptoms PMX: DM, HTN, asthma, COPD, renal disease, dialysis FHx: Unable to obtain secondary to patient's condition SHx: Unable to obtain secondary to patient's condition Allergies: Coded Allergies: No Known Allergies (Verified , 11/24/07) Medication History Scheduled Amlodipine Besylate (Norvasc), 5 MG ORAL BID, (Reported) Clonidine Hcl* (Catapres*), 0.1 MG ORAL EVERY 4 HOURS, (Reported) Labetalol Hcl* (Normodyne*), 100 MG ORAL EVERY 8 HOURS, (Reported) Lorazepam* (Lorazepam*), 2 MG ORAL EVERY 6 HOURS, (Reported) Pantoprazole* (Protonix*), 40 MG ORAL DAILY, (Reported) Polyethylene Glycol 3350* (Miralax*), 17 GM ORAL DAILY, (Reported) Sevelamer Carbonate* (Renvela*), 1,600 MG ORAL THREE TIMES A DAY, (Reported) Scheduled PRN Tramadol Hcl* (Ultram*), 50 MG ORAL Q6H PRN for For Pain, (Reported) Discontinued Medications Albuterol Sulfate* (Proair Hfa*), (Reported) Discontinued Reason: MD discontinued med Albuterol Sulfate* (Albuterol Sulfate Mdi*), 2 PUFF INH Q4H PRN for Shortness of Breath Discontinued Reason: MD discontinued med Amino Acids/Protein Hydrolys (Liquacel 100 Liquid Packet), 30 ML PO, (Reported) Discontinued Reason: Pt had allergic rxn Amlodipine Besylate (Norvasc), 5 MG ORAL BID Discontinued Reason: MD discontinued med Atorvastatin Calcium* (Lipitor*), 20 MG ORAL BEDTIME Discontinued Reason: Medication dose changed Atorvastatin Calcium* (Atorvastatin Calcium*), 10 MG ORAL BEDTIME, (Reported) Discontinued Reason: Medication dose changed Bisacodyl* (Dulcolax*), 10 MG ORAL DAILY, (Reported) Discontinued Reason: MD discontinued med Carvedilol (Coreg), 25 MG ORAL EVERY 12 HOURS Discontinued Reason: MD discontinued med Darbepoetin Yao in Polysorbat (Aranesp), 200 MCG IV ONCE A WEEK, (Reported) Discontinued Reason: MD discontinued med Ferrous Sulfate* (Ferrous Sulfate*), 325 MG ORAL DAILY Discontinued Reason: MD discontinued med Furosemide* (Lasix*), 20 MG ORAL DAILY, (Reported) Discontinued Reason: MD discontinued med Hum Insulin Nph/Reg Insulin Hm (Novolin 70-30 100 Unit/Ml Vial), (Reported) Discontinued Reason: MD discontinued med Hydralazine HCl (Hydralazine HCl), 50 MG ORAL Q8HR Discontinued Reason: Medication dose changed Insulin Aspart (Novolog Flexpen), 0 UNITS SUBQ BEFORE MEALS AND HS Discontinued Reason: MD discontinued med Insulin Detemir (Levemir Flexpen), 30 UNITS SUBQ Q24H Discontinued Reason: MD discontinued med Insulin Human Isophan/Regular (Humulin 70-30 Vial), Unknown Dose SUBQ PRN, ( Reported) Discontinued Reason: MD discontinued med Insulin Lispro (Humalog), 1 UNIT SUBQ TIAC, (Reported) Discontinued Reason: MD discontinued med Insuln Asp Prt/Insulin Aspart (Novolog Mix 70-30 Vial), (Reported) Discontinued Reason: MD discontinued med Iron Sucrose Complex (Venofer), 50 MG IV, (Reported) Discontinued Reason: MD discontinued med Lisinopril/Hydrochlorothiazide (Zestoretic 20-25 mg Tablet), Unknown Dose ORAL DAILY, (Reported) Discontinued Reason: MD discontinued med Melatonin (Melatonin), 3 MG ORAL BEDTIME PRN for Insomnia, (Reported) Discontinued Reason: MD discontinued med Nateglinide* (Starlix*), 60 MG ORAL THREE TIMES A DAY Discontinued Reason: MD discontinued med Nitroglycerin (Nitrostat), 0.4 MG SL Q5M PRN for Prn Chest Pain Discontinued Reason: MD discontinued med Pantoprazole* (Pantoprazole*), (Reported) Discontinued Reason: Pt stopped taking med Pantoprazole* (Protonix*), 40 MG ORAL DAILY Discontinued Reason: Pt stopped taking med Paricalcitol (Zemplar), 5 MCG IV, (Reported) Discontinued Reason: MD discontinued med Polyethylene Glycol 3350* (Miralax*), 17 GM ORAL DAILY, (Reported) Discontinued Reason: MD discontinued med Risperidone (Risperidone), (Reported) Discontinued Reason: MD discontinued med Risperidone (Risperidone), (Reported) Discontinued Reason: MD discontinued med Sennosides (Senna), 17.2 MG PO QHS, (Reported) Discontinued Reason: MD discontinued med Sennosides* (Sennosides*), 8.6 MG ORAL DAILY, (Reported) Discontinued Reason: Medication dose changed Sertraline Hcl* (Zoloft*), (Reported) Discontinued Reason: MD discontinued med Sertraline Hcl* (Zoloft*), 25 MG ORAL DAILY Discontinued Reason: MD discontinued med Sitagliptin* (Januvia*), 25 MG ORAL DAILY Discontinued Reason: MD discontinued med Sucralfate* (Carafate*), 1 GM ORAL FOUR TIMES A DAY Discontinued Reason: MD discontinued med Tiotropium [place]* (Spiriva*), (Reported) Discontinued Reason: MD discontinued med Tramadol Hcl* (Ultram*), 50 MG ORAL DAILY PRN for For Pain, (Reported) Discontinued Reason: MD discontinued med Patient History Limited by: medical condition History Provided By: Medical Record, EMS Healthcare decision maker Resuscitation status Full Code Advanced Directive on File Review of Systems Constitutional: Reports: no symptoms Eye: Reports: no symptoms ENT: Reports: no symptoms Respiratory: Reports: no symptoms Cardiovascular: Reports: no symptoms Gastrointestinal: Reports: no symptoms Genitourinary: Reports: no symptoms Musculoskeletal: Reports: no symptoms Skin: Reports: no symptoms Psychiatric: Reports: see HPI Neurological: Reports: see HPI Endocrine: Reports: no symptoms Hematologic/Lymphatic: Reports: no symptoms All Other Systems: negative except mentioned in HPI ROS Narrative Limited secondary to patient's condition Physical Exam General Appearance: no apparent distress, lethargic, confused Lines, tubes and drains: peripheral HEENT: normocephalic, atraumatic Neck: non-tender, supple Respiratory/Chest: chest wall non-tender, lungs clear Cardiovascular/Chest: normal peripheral pulses, normal rate, regular rhythm Abdomen: normal bowel sounds, non tender Extremities: normal range of motion Skin Exam: normal pigmentation Neurologic: disoriented Lymphatic: anterior cervical, posterior cervical (L) Musculoskeletal: atrophy Last 24 Hour Vital Signs Date Time Temp Pulse Resp B/P (MAP) Pulse Ox O2 Delivery O2 Flow Rate FiO2 06/14/18 23:46 Room Air 06/14/18 22:05 97.7 79 18 192/77 (115) 97 97.7 06/14/18 19:50 88 194/64 06/14/18 14:21 76 18 189/60 99 Room Air 06/14/18 13:25 97.9 84 18 166/64 97 Room Air 97.9 Laboratory Tests Test 06/14/18 14:30 06/14/18 20:52 White Blood Count 3.4 K/UL (4.8-10.8) L Red Blood Count 2.43 M/UL (4.70-6.10) L Hemoglobin 7.7 G/DL (14.2-18.0) L Hematocrit 24.3 % (42.0-52.0) L Mean Corpuscular Volume 100 FL (80-99) H Mean Corpuscular Hemoglobin 31.5 PG (27.0-31.0) H Mean Corpuscular Hemoglobin Concent 31.6 G/DL (32.0-36.0) L Red Cell Distribution Width 15.4 % (11.6-14.8) H Platelet Count 139 K/UL (150-450) L Mean Platelet Volume 6.6 FL (6.5-10.1) Neutrophils (%) (Auto) % (45.0-75.0) Lymphocytes (%) (Auto) % (20.0-45.0) Monocytes (%) (Auto) % (1.0-10.0) Eosinophils (%) (Auto) % (0.0-3.0) Basophils (%) (Auto) % (0.0-2.0) Differential Total Cells Counted 100 Neutrophils % (Manual) 58 % (45-75) Lymphocytes % (Manual) 25 % (20-45) Monocytes % (Manual) 11 % (1-10) H Eosinophils % (Manual) 6 % (0-3) H Basophils % (Manual) 0 % (0-2) Band Neutrophils 0 % (0-8) Platelet Estimate Decreased L Platelet Morphology Normal Hypochromasia 2+ Anisocytosis 2+ Macrocytosis 1+ Sodium Level 140 MMOL/L (136-145) Potassium Level 4.9 MMOL/L (3.5-5.1) Chloride Level 104 MMOL/L (98-107) Carbon Dioxide Level 25 MMOL/L (21-32) Anion Gap 11 mmol/L (5-15) Blood Urea Nitrogen 72 mg/dL (7-18) H Creatinine 9.3 MG/DL (0.55-1.30) H Estimat Glomerular Filtration Rate 6.9 mL/min (>60) Glucose Level 121 MG/DL (74-106) H Calcium Level 8.7 MG/DL (8.5-10.1) Total Bilirubin 0.3 MG/DL (0.2-1.0) Aspartate Amino Transf (AST/SGOT) 13 U/L (15-37) L Alanine Aminotransferase (ALT/SGPT) 15 U/L (12-78) Alkaline Phosphatase 127 U/L (46-116) H Total Protein 7.2 G/DL (6.4-8.2) Albumin 3.1 G/DL (3.4-5.0) L Globulin 4.1 g/dL Albumin/Globulin Ratio 0.8 (1.0-2.7) L Salicylates Level 1.5 ug/mL (2.8-20) L Acetaminophen Level < 2 MCG/ML (10-30) L Serum Alcohol < 3 mg/dL Urine Color Pale yellow Urine Appearance Clear Urine pH 6.5 (4.5-8.0) Urine Specific [place] 1.010 (1.005-1.035) Urine Protein 4+ (NEGATIVE) H Urine Glucose (UA) 2+ (NEGATIVE) H Urine Ketones Negative (NEGATIVE) Urine Occult Blood 1+ (NEGATIVE) H Urine Nitrite Negative (NEGATIVE) Urine Bilirubin Negative (NEGATIVE) Urine Urobilinogen Normal MG/DL (0.0-1.0) Urine Leukocyte Esterase 1+ (NEGATIVE) H Urine RBC 5-10 /HPF (0 - 0) H Urine WBC 5-10 /HPF (0 - 0) H Urine Squamous Epithelial Cells Few /LPF (NONE/OCC) Urine Amorphous Sediment Moderate /LPF (NONE) H Urine Bacteria Moderate /HPF (NONE) H Urine Opiates Screen Negative (NEGATIVE) Urine Barbiturates Screen Negative (NEGATIVE) Phencyclidine (PCP) Screen Negative (NEGATIVE) Urine Amphetamines Screen Negative (NEGATIVE) Urine Benzodiazepines Screen Negative (NEGATIVE) Urine Cocaine Screen Negative (NEGATIVE) Urine Marijuana (THC) Screen Negative (NEGATIVE) Height (Feet): 5 Height (Inches): 9.00 Weight (Pounds): 173 Medications Current Medications Medications (Trade) Dose Ordered Sig/Praveen Route PRN Reason Start Time Stop Time Status Last Admin Dose Admin Amlodipine Besylate (Norvasc) 5 mg BID ORAL 06/15/18 09:00 07/15/18 08:59 Aspirin (ASA) 81 mg DAILY ORAL 06/15/18 09:00 07/15/18 08:59 Atorvastatin Calcium (Lipitor) 10 mg BEDTIME ORAL 06/15/18 21:00 07/15/18 20:59 Clonidine HCl (Catapres Tab) 0.1 mg Q4H PRN ORAL bp over 160 syst 06/14/18 23:15 07/14/18 23:14 Dextrose (Dextrose 50%) 25 ml STAT PRN IV Hypoglycemia 06/14/18 23:15 07/14/18 23:14 Dextrose (Dextrose 50%) 50 ml STAT PRN IV Hypoglycemia 06/14/18 23:15 07/14/18 23:14 Docusate Sodium (Colace) 100 mg TWICE A DAY ORAL 06/15/18 09:00 07/15/18 08:59 Famotidine (Pepcid) 20 mg DAILY ORAL 06/15/18 09:00 07/15/18 08:59 Heparin Sodium (Porcine) (Heparin 5000 units/ml) 5,000 units EVERY 12 HOURS SUBQ 06/15/18 09:00 07/15/18 08:59 UNV Insulin Aspart (NovoLOG) BEFORE MEALS AND HS SUBQ 06/15/18 06:30 07/15/18 06:29 Labetalol HCl (Normodyne) 100 mg Q8HR ORAL 06/14/18 22:45 07/14/18 22:44 Polyethylene Glycol (Miralax) 17 gm DAILY PRN ORAL Constipation 06/14/18 23:15 07/14/18 23:14 Quetiapine Fumarate (SEROquel) 100 mg Q12HR ORAL 06/14/18 23:30 07/14/18 23:29 Sitagliptin Phosphate (Januvia) 25 mg ACBREAKFAST ORAL 06/15/18 06:30 07/15/18 06:29 Tamsulosin HCl (Flomax) 0.4 mg BEDTIME ORAL 06/15/18 21:00 07/15/18 20:59 Tamsulosin HCl (Flomax) 0.4 mg BEDTIME ORAL 06/15/18 21:00 07/15/18 20:59 Tramadol HCl (Ultram) 50 mg Q6H PRN ORAL pain 06/14/18 23:15 06/21/18 23:14 Assessment/Plan Status: not improved, unchanged Status Narrative 67 yo man with ESRD on HD comes in with acute encephalopathy of unknown etiology Assessment/Plan 1) Acute Encephalopathy Psychiatry consult appreciated Haldol PRN for agitation 2) ESRD on HD -Nephrology consulted for HD -has left chest permacath 3) Severe Anemia - unclear etiology - no signs of GI bleed -check iron studies, B12, folate 4) DM Hold meds ISS 5) HTN, uncontrolled -adjust BP meds DVT Prophylaxis: SCD's Code Status: Full Hospital Classification declaration: Based on this initial evaluation and depending on the patient's clinical course I anticipate that this patient will require hospitalization for at least 2-3 days Disposition: Once the patient is stable to leave the hospital I anticipate the patient will likely be discharged to the following environment: Home I spent 70 minutes on this patients car and 36 minutes was dedicated to counseling and care coordination Time of note may not reflect time of encounter Ebenezer Zavala M.D. Jun 14, 2018 23:51
[2018-06-15 00:45] VITALS: BP 150/69
[2018-06-15 04:00] VITALS: BP 142/65
[2018-06-15 05:14] LABS: HEMATOCRIT 22.3 % (42.0-52.0); HEMOGLOBIN 7.1 G/DL (14.2-18.0); MEAN CORPUSCULAR VOLUME 100 FL (80-99); PLATELET COUNT 137 K/UL (150-450); RED BLOOD COUNT 2.24 M/UL (4.70-6.10); RED CELL DISTRIBUTION WIDTH 15.1 % (11.6-14.8); WHITE BLOOD COUNT 3.7 K/UL (4.8-10.8)
[2018-06-15 05:43] LABS: ALANINE AMINOTRANSFERASE 10 U/L (12-78); ALBUMIN 2.8 G/DL (3.4-5.0); ALBUMIN/GLOBULIN RATIO 0.7 (1.0-2.7); ALKALINE PHOSPHATASE 109 U/L (46-116); ANION GAP 11 mmol/L (5-15); ASPARTATE AMINO TRANSFERASE 14 U/L (15-37); BILIRUBIN,TOTAL 0.2 MG/DL (0.2-1.0); BLOOD UREA NITROGEN 85 mg/dL (7-18); CALCIUM 8.4 MG/DL (8.5-10.1); CARBON DIOXIDE 25 MMOL/L (21-32); CHLORIDE 107 MMOL/L (98-107); CHOLESTEROL 108 MG/DL (< 200); CREATININE 10.7 MG/DL (0.55-1.30); HDL CHOLESTEROL 39 MG/DL (40-60); PHOSPHORUS 6.8 MG/DL (2.5-4.9); SODIUM 143 MMOL/L (136-145); TRIGLYCERIDES 35 MG/DL (30-150)
[2018-06-15 05:46] LABS: CREATINE KINASE 38 U/L (26-308); GAMMA GLUTAMYL TRANSPEPTIDASE 11 U/L (5-85)
[2018-06-15] MEDS: NovoLOG Insulin Flexpen SUBQ SCH ×4 (06:30→21:00)
[2018-06-15] MEDS ORDERED: sitaGLIPtin 25mg tab ORAL SCH (06:30)
[2018-06-15 08:00] VITALS: BP 145/59
[2018-06-15] MEDS: Aspirin Baby 81mg ORAL SCH (08:19)
[2018-06-15] MEDS: Heparin 5000 units/ml inj SUBQ SCH ×2 (08:20→21:00)
[2018-06-15] MEDS ORDERED: Docusate 100mg cap ORAL SCH (09:00)
[2018-06-15] MEDS ORDERED: Haloperidol 5mg/ml Inj IM SCH ×2 (11:00→11:15)
--- NOTE | 2018-06-15 11:11 | Consultation ---
History of Present Illness General Date patient seen: Jun 14, 2018 Chief Complaint: Generalized Weakness Present Illness HPI 67 yo male with mmp who came in with altered mental status and was uncooperative with the evaluation. the pt has waxing and waning of consciousness Allergies: Coded Allergies: No Known Allergies (Verified , 11/24/07) Medication History Scheduled Aspirin Ec* (Aspirin Ec*), 81 MG ORAL DAILY, (Reported) Atorvastatin Calcium* (Lipitor*), 10 MG ORAL BEDTIME, (Reported) Bisacodyl* (Dulcolax*), 10 MG ORAL DAILY, (Reported) Docusate Sodium* (Colace*), 100 MG ORAL TWICE A DAY Epoetin Yao (Epogen), 4,000 UNIT SUBQ 3XW, (Reported) Famotidine (Famotidine), 40 MG ORAL QHS, (Reported) Insulin Lispro (Humalog), 1 UNIT SUBQ TIAC, (Reported) Polyethylene Glycol 3350* (Miralax*), 17 GM ORAL DAILY, (Reported) Quetiapine Fumarate* (Seroquel*), 100 MG ORAL THREE TIMES A DAY, (Reported) Sennosides (Senna), 17.2 MG PO QHS, (Reported) Sitagliptin* (Januvia*), 25 MG ORAL DAILY Tamsulosin HCl (Flomax), 0.4 MG ORAL BEDTIME Scheduled PRN Melatonin (Melatonin), 3 MG ORAL BEDTIME PRN for Insomnia, (Reported) Tramadol Hcl* (Ultram*), 50 MG ORAL DAILY PRN for For Pain, (Reported) Discontinued Medications Albuterol Sulfate* (Proair Hfa*), (Reported) Discontinued Reason: MD discontinued med Albuterol Sulfate* (Albuterol Sulfate Mdi*), 2 PUFF INH Q4H PRN for Shortness of Breath Discontinued Reason: MD discontinued med Amino Acids/Protein Hydrolys (Liquacel 100 Liquid Packet), 30 ML PO, (Reported) Discontinued Reason: Pt had allergic rxn Amlodipine Besylate (Norvasc), 5 MG ORAL BID Discontinued Reason: MD discontinued med Atorvastatin Calcium* (Lipitor*), 20 MG ORAL BEDTIME Discontinued Reason: Medication dose changed Atorvastatin Calcium* (Atorvastatin Calcium*), 10 MG ORAL BEDTIME, (Reported) Discontinued Reason: Medication dose changed Carvedilol (Coreg), 25 MG ORAL EVERY 12 HOURS Discontinued Reason: MD discontinued med Darbepoetin Yao in Polysorbat (Aranesp), 200 MCG IV ONCE A WEEK, (Reported) Discontinued Reason: MD discontinued med Ferrous Sulfate* (Ferrous Sulfate*), 325 MG ORAL DAILY Discontinued Reason: MD discontinued med Furosemide* (Lasix*), 20 MG ORAL DAILY, (Reported) Discontinued Reason: MD discontinued med Hum Insulin Nph/Reg Insulin Hm (Novolin 70-30 100 Unit/Ml Vial), (Reported) Discontinued Reason: MD discontinued med Hydralazine HCl (Hydralazine HCl), 50 MG ORAL Q8HR Discontinued Reason: Medication dose changed Insulin Aspart (Novolog Flexpen), 0 UNITS SUBQ BEFORE MEALS AND HS Discontinued Reason: MD discontinued med Insulin Detemir (Levemir Flexpen), 30 UNITS SUBQ Q24H Discontinued Reason: MD discontinued med Insulin Human Isophan/Regular (Humulin 70-30 Vial), Unknown Dose SUBQ PRN, ( Reported) Discontinued Reason: MD discontinued med Insuln Asp Prt/Insulin Aspart (Novolog Mix 70-30 Vial), (Reported) Discontinued Reason: MD discontinued med Iron Sucrose Complex (Venofer), 50 MG IV, (Reported) Discontinued Reason: MD discontinued med Lisinopril/Hydrochlorothiazide (Zestoretic 20-25 mg Tablet), Unknown Dose ORAL DAILY, (Reported) Discontinued Reason: MD discontinued med Nateglinide* (Starlix*), 60 MG ORAL THREE TIMES A DAY Discontinued Reason: MD discontinued med Nitroglycerin (Nitrostat), 0.4 MG SL Q5M PRN for Prn Chest Pain Discontinued Reason: MD discontinued med Pantoprazole* (Pantoprazole*), (Reported) Discontinued Reason: Pt stopped taking med Pantoprazole* (Protonix*), 40 MG ORAL DAILY Discontinued Reason: Pt stopped taking med Paricalcitol (Zemplar), 5 MCG IV, (Reported) Discontinued Reason: discontinued med Risperidone (Risperidone), (Reported) Discontinued Reason: MD discontinued med Risperidone (Risperidone), (Reported) Discontinued Reason: MD discontinued med Sennosides* (Sennosides*), 8.6 MG ORAL DAILY, (Reported) Discontinued Reason: Medication dose changed Sertraline Hcl* (Zoloft*), (Reported) Discontinued Reason: MD discontinued med Sertraline Hcl* (Zoloft*), 25 MG ORAL DAILY Discontinued Reason: MD discontinued med Sucralfate* (Carafate*), 1 GM ORAL FOUR TIMES A DAY Discontinued Reason: MD discontinued med Tiotropium [place]* (Spiriva*), (Reported) Discontinued Reason: MD discontinued med Patient History Healthcare decision maker Resuscitation status Full Code Advanced Directive on File Past Medical/Surgical History Past Medical/Surgical History: (1) Pyelonephritis, acute (2) Malnutrition (3) UTI (lower urinary tract infection) (4) ACS (acute coronary syndrome) (5) Bronchitis (6) Shoulder pain (7) Hypertensive urgency (8) Noncompliance (9) Anemia (10) Pneumonia (11) Respiratory failure (12) Acute renal failure (13) Diabetes mellitus (14) Dysuria (15) Persistent cough (16) Constipation (17) Iron deficiency anemia (18) Renal failure (ARF), acute on chronic (19) Syncope (20) Syncope (21) Renal failure (ARF), acute on chronic (22) Anemia (23) Dyspnea (24) GI bleed (25) Chest pain (26) Diabetes (27) Pleural effusion (28) History of hypertension (29) CHF (congestive heart failure) (30) ESRD (end stage renal disease) on dialysis (31) Encephalopathy Review of Systems Psychiatric: Reports: prior hx, anxiety, depressed feelings Physical Exam General Appearance: no apparent distress, alert Neurologic: alert, responsive, depressed affect Last 24 Hour Vital Signs Date Time Temp Pulse Resp B/P (MAP) Pulse Ox O2 Delivery O2 Flow Rate FiO2 06/15/18 08:20 66 145/59 06/15/18 08:00 98.2 66 18 145/59 (87) 94 98.2 06/15/18 07:10 80 142/65 06/15/18 04:00 97.9 80 19 142/65 (90) 94 97.9 06/15/18 00:45 97.9 91 19 150/69 (96) 99 97.9 06/15/18 00:00 192/77 06/15/18 00:00 79 192/77 06/14/18 23:46 Room Air 06/14/18 22:05 97.7 79 18 192/77 (115) 97 97.7 06/14/18 21:45 97.9 76 18 173/66 99 Room Air 97.9 06/14/18 19:50 88 194/64 06/14/18 14:21 76 18 189/60 99 Room Air 06/14/18 13:25 97.9 84 18 166/64 97 Room Air 97.9 Intake and Output 06/14/18 06/15/18 19:00 07:00 Intake Total 320 ml Output Total 276 ml Balance 44 ml Intake Oral 320 ml Output Urine Total 275 ml Stool Total 1 ml Laboratory Tests Test 06/14/18 14:30 06/14/18 20:52 06/15/18 05:00 White Blood Count 3.4 K/UL (4.8-10.8) L 3.7 K/UL (4.8-10.8) L Red Blood Count 2.43 M/UL (4.70-6.10) L 2.24 M/UL (4.70-6.10) L Hemoglobin 7.7 G/DL (14.2-18.0) L 7.1 G/DL (14.2-18.0) L Hematocrit 24.3 % (42.0-52.0) L 22.3 % (42.0-52.0) L Mean Corpuscular Volume 100 FL (80-99) H 100 FL (80-99) H Mean Corpuscular Hemoglobin 31.5 PG (27.0-31.0) H 31.6 PG (27.0-31.0) H Mean Corpuscular Hemoglobin Concent 31.6 G/DL (32.0-36.0) L 31.7 G/DL (32.0-36.0) L Red Cell Distribution Width 15.4 % (11.6-14.8) H 15.1 % (11.6-14.8) H Platelet Count 139 K/UL (150-450) L 137 K/UL (150-450) L Mean Platelet Volume 6.6 FL (6.5-10.1) 5.7 FL (6.5-10.1) L Neutrophils (%) (Auto) % (45.0-75.0) % (45.0-75.0) Lymphocytes (%) (Auto) % (20.0-45.0) % (20.0-45.0) Monocytes (%) (Auto) % (1.0-10.0) % (1.0-10.0) Eosinophils (%) (Auto) % (0.0-3.0) % (0.0-3.0) Basophils (%) (Auto) % (0.0-2.0) % (0.0-2.0) Differential Total Cells Counted 100 100 Neutrophils % (Manual) 58 % (45-75) 70 % (45-75) Lymphocytes % (Manual) 25 % (20-45) 16 % (20-45) L Monocytes % (Manual) 11 % (1-10) H 10 % (1-10) Eosinophils % (Manual) 6 % (0-3) H 4 % (0-3) H Basophils % (Manual) 0 % (0-2) 0 % (0-2) Band Neutrophils 0 % (0-8) 0 % (0-8) Platelet Estimate Decreased L Decreased L Platelet Morphology Normal Normal Hypochromasia 2+ 3+ Anisocytosis 2+ 1+ Macrocytosis 1+ Sodium Level 140 MMOL/L (136-145) 143 MMOL/L (136-145) Potassium Level 4.9 MMOL/L (3.5-5.1) 5.0 MMOL/L (3.5-5.1) Chloride Level 104 MMOL/L (98-107) 107 MMOL/L (98-107) Carbon Dioxide Level 25 MMOL/L (21-32) 25 MMOL/L (21-32) Anion Gap 11 mmol/L (5-15) 11 mmol/L (5-15) Blood Urea Nitrogen 72 mg/dL (7-18) H 85 mg/dL (7-18) H Creatinine 9.3 MG/DL (0.55-1.30) H 10.7 MG/DL (0.55-1.30) H Estimat Glomerular Filtration Rate 6.9 mL/min (>60) 5.9 mL/min (>60) Glucose Level 121 MG/DL (74-106) H 86 MG/DL (74-106) Calcium Level 8.7 MG/DL (8.5-10.1) 8.4 MG/DL (8.5-10.1) L Total Bilirubin 0.3 MG/DL (0.2-1.0) 0.2 MG/DL (0.2-1.0) Aspartate Amino Transf (AST/SGOT) 13 U/L (15-37) L 14 U/L (15-37) L Alanine Aminotransferase (ALT/SGPT) 15 U/L (12-78) 10 U/L (12-78) L Alkaline Phosphatase 127 U/L (46-116) H 109 U/L (46-116) Total Protein 7.2 G/DL (6.4-8.2) 6.7 G/DL (6.4-8.2) Albumin 3.1 G/DL (3.4-5.0) L 2.8 G/DL (3.4-5.0) L Globulin 4.1 g/dL 3.9 g/dL Albumin/Globulin Ratio 0.8 (1.0-2.7) L 0.7 (1.0-2.7) L Salicylates Level 1.5 ug/mL (2.8-20) L Acetaminophen Level < 2 MCG/ML (10-30) L Serum Alcohol < 3 mg/dL Urine Color Pale yellow Urine Appearance Clear Urine pH 6.5 (4.5-8.0) Urine Specific [place] 1.010 (1.005-1.035) Urine Protein 4+ (NEGATIVE) H Urine Glucose (UA) 2+ (NEGATIVE) H Urine Ketones Negative (NEGATIVE) Urine Occult Blood 1+ (NEGATIVE) H Urine Nitrite Negative (NEGATIVE) Urine Bilirubin Negative (NEGATIVE) Urine Urobilinogen Normal MG/DL (0.0-1.0) Urine Leukocyte Esterase 1+ (NEGATIVE) H Urine RBC 5-10 /HPF (0 - 0) H Urine WBC 5-10 /HPF (0 - 0) H Urine Squamous Epithelial Cells Few /LPF (NONE/OCC) Urine Amorphous Sediment Moderate /LPF (NONE) H Urine Bacteria Moderate /HPF (NONE) H Urine Opiates Screen Negative (NEGATIVE) Urine Barbiturates Screen Negative (NEGATIVE) Phencyclidine (PCP) Screen Negative (NEGATIVE) Urine Amphetamines Screen Negative (NEGATIVE) Urine Benzodiazepines Screen Negative (NEGATIVE) Urine Cocaine Screen Negative (NEGATIVE) Urine Marijuana (THC) Screen Negative (NEGATIVE) Hemoglobin A1c 4.9 % (4.3-6.0) Uric Acid 6.2 MG/DL (2.6-7.2) Phosphorus Level 6.8 MG/DL (2.5-4.9) H Magnesium Level 2.8 MG/DL (1.8-2.4) H Gamma Glutamyl Transpeptidase 11 U/L (5-85) Total Creatine Kinase 38 U/L (26-308) C-Reactive Protein, Quantitative 2.1 mg/dL (0.00-0.90) H Pro-B-Type Natriuretic Peptide 6847 pg/mL (0-125) H Triglycerides Level 35 MG/DL (30-150) Cholesterol Level 108 MG/DL (< 200) LDL Cholesterol 63 mg/dL (<100) HDL Cholesterol 39 MG/DL (40-60) L Cholesterol/HDL Ratio 2.8 (3.3-4.4) L Thyroid Stimulating Hormone (TSH) 2.672 uiU/mL (0.358-3.740) Height (Feet): 5 Height (Inches): 9.00 Weight (Pounds): 173 Medications Current Medications Medications (Trade) Dose Ordered Sig/Praveen Route PRN Reason Start Time Stop Time Status Last Admin Dose Admin Amlodipine Besylate (Norvasc) 5 mg BID ORAL 06/15/18 09:00 07/15/18 08:59 06/15/18 08:20 Aspirin (ASA) 81 mg DAILY ORAL 06/15/18 09:00 07/15/18 08:59 06/15/18 08:19 Atorvastatin Calcium (Lipitor) 10 mg BEDTIME ORAL 06/15/18 21:00 07/15/18 20:59 Clonidine HCl (Catapres Tab) 0.1 mg Q4H PRN ORAL bp over 160 syst 06/14/18 23:15 07/14/18 23:14 06/15/18 00:00 Dextrose (Dextrose 50%) 25 ml STAT PRN IV Hypoglycemia 06/14/18 23:15 07/14/18 23:14 Dextrose (Dextrose 50%) 50 ml STAT PRN IV Hypoglycemia 06/14/18 23:15 07/14/18 23:14 Docusate Sodium (Colace) 100 mg TWICE A DAY ORAL 06/15/18 09:00 07/15/18 08:59 06/15/18 08:19 Famotidine (Pepcid) 20 mg DAILY ORAL 06/15/18 09:00 07/15/18 08:59 06/15/18 08:19 Haloperidol Lactate (Haldol) 5 mg ONCE IM 06/15/18 11:00 06/15/18 12:00 06/15/18 10:58 Heparin Sodium (Porcine) (Heparin 5000 units/ml) 5,000 units EVERY 12 HOURS SUBQ 06/15/18 09:00 07/15/18 08:59 Insulin Aspart (NovoLOG) BEFORE MEALS AND HS SUBQ 06/15/18 06:30 07/15/18 06:29 Labetalol HCl (Normodyne) 100 mg Q8HR ORAL 06/14/18 22:45 07/14/18 22:44 06/15/18 07:10 Polyethylene Glycol (Miralax) 17 gm DAILY PRN ORAL Constipation 06/14/18 23:15 07/14/18 23:14 Quetiapine Fumarate (SEROquel) 100 mg Q8HR ORAL 06/15/18 14:00 07/15/18 13:59 Sevelamer Carbonate (Renvela) 800 mg THREE TIMES A DAY ORAL 06/15/18 09:00 07/15/18 08:59 06/15/18 09:47 Sitagliptin Phosphate (Januvia) 25 mg ACBREAKFAST ORAL 06/15/18 06:30 07/15/18 06:29 06/15/18 07:10 Tamsulosin HCl (Flomax) 0.4 mg BEDTIME ORAL 06/15/18 21:00 07/15/18 20:59 Tamsulosin HCl (Flomax) 0.4 mg BEDTIME ORAL 06/15/18 21:00 07/15/18 20:59 Tramadol HCl (Ultram) 50 mg Q6H PRN ORAL pain 06/14/18 23:15 06/21/18 23:14 Assessment/Plan Status: stable Assessment/Plan 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
[2018-06-15] MEDS ORDERED: LORazepam Inj 2mg/ml 1ml IM SCH (11:15)
[2018-06-15] MEDS ORDERED: DiphenhydrAMINE 50mg/ml Inj IM SCH (11:15)
--- NOTE | 2018-06-15 11:16 | General Progress Note ---
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 -Haldol cocktail -Haldol Dec -Ativan prn -Seroquel 100mg po tid Subjective Date patient seen: Jun 15, 2018 Neurologic/Psychiatric: Reports: anxiety, depressed, emotional problems Allergies: Coded Allergies: No Known Allergies (Verified , 11/24/07) Subjective the pt wanted to leave ama confused not able to answer the questions Objective Last 24 Hour Vital Signs Date Time Temp Pulse Resp B/P (MAP) Pulse Ox O2 Delivery O2 Flow Rate FiO2 06/15/18 08:20 66 145/59 06/15/18 08:00 98.2 66 18 145/59 (87) 94 98.2 06/15/18 07:10 80 142/65 06/15/18 04:00 97.9 80 19 142/65 (90) 94 97.9 06/15/18 00:45 97.9 91 19 150/69 (96) 99 97.9 06/15/18 00:00 192/77 06/15/18 00:00 79 192/77 06/14/18 23:46 Room Air 06/14/18 22:05 97.7 79 18 192/77 (115) 97 97.7 06/14/18 21:45 97.9 76 18 173/66 99 Room Air 97.9 06/14/18 19:50 88 194/64 06/14/18 14:21 76 18 189/60 99 Room Air 06/14/18 13:25 97.9 84 18 166/64 97 Room Air 97.9 Intake and Output 06/14/18 06/15/18 19:00 07:00 Intake Total 320 ml Output Total 276 ml Balance 44 ml Intake Oral 320 ml Output Urine Total 275 ml Stool Total 1 ml Laboratory Tests 06/14/18 14:30: White Blood Count 3.4L, Red Blood Count 2.43L, Hemoglobin 7.7L, Hematocrit 24.3L , Mean Corpuscular Volume 100H, Mean Corpuscular Hemoglobin 31.5H, Mean Corpuscular Hemoglobin Concent 31.6L, Red Cell Distribution Width 15.4H, Platelet Count 139L, Mean Platelet Volume 6.6, Neutrophils (%) (Auto) , Lymphocytes (%) (Auto) , Monocytes (%) (Auto) , Eosinophils (%) (Auto) , Basophils (%) (Auto) , Differential Total Cells Counted 100, Neutrophils % ( Manual) 58, Lymphocytes % (Manual) 25, Monocytes % (Manual) 11H, Eosinophils % ( Manual) 6H, Basophils % (Manual) 0, Band Neutrophils 0, Platelet Estimate DecreasedL, Platelet Morphology Normal, Hypochromasia 2+, Anisocytosis 2+, Macrocytosis 1+, Sodium Level 140, Potassium Level 4.9, Chloride Level 104, Carbon Dioxide Level 25, Anion Gap 11, Blood Urea Nitrogen 72H, Creatinine 9.3H , Estimat Glomerular Filtration Rate 6.9, Glucose Level 121H, Calcium Level 8.7 , Total Bilirubin 0.3, Aspartate Amino Transf (AST/SGOT) 13L, Alanine Aminotransferase (ALT/SGPT) 15, Alkaline Phosphatase 127H, Total Protein 7.2, Albumin 3.1L, Globulin 4.1, Albumin/Globulin Ratio 0.8L, Salicylates Level 1.5L , Acetaminophen Level < 2L, Serum Alcohol < 3 06/14/18 20:52: Urine Color Pale yellow, Urine Appearance Clear, Urine pH 6.5, Urine Specific [place] 1.010, Urine Protein 4+H, Urine Glucose (UA) 2+H, Urine Ketones Negative , Urine Occult Blood 1+H, Urine Nitrite Negative, Urine Bilirubin Negative, Urine Urobilinogen Normal, Urine Leukocyte Esterase 1+H, Urine RBC 5-10H, Urine WBC 5-10H, Urine Squamous Epithelial Cells Few, Urine Amorphous Sediment ModerateH, Urine Bacteria ModerateH, Urine Opiates Screen Negative, Urine Barbiturates Screen Negative, Phencyclidine (PCP) Screen Negative, Urine Amphetamines Screen Negative, Urine Benzodiazepines Screen Negative, Urine Cocaine Screen Negative, Urine Marijuana (THC) Screen Negative 06/15/18 05:00: White Blood Count 3.7L, Red Blood Count 2.24L, Hemoglobin 7.1L, Hematocrit 22.3L , Mean Corpuscular Volume 100H, Mean Corpuscular Hemoglobin 31.6H, Mean Corpuscular Hemoglobin Concent 31.7L, Red Cell Distribution Width 15.1H, Platelet Count 137L, Mean Platelet Volume 5.7L, Neutrophils (%) (Auto) , Lymphocytes (%) (Auto) , Monocytes (%) (Auto) , Eosinophils (%) (Auto) , Basophils (%) (Auto) , Differential Total Cells Counted 100, Neutrophils % ( Manual) 70, Lymphocytes % (Manual) 16L, Monocytes % (Manual) 10, Eosinophils % ( Manual) 4H, Basophils % (Manual) 0, Band Neutrophils 0, Platelet Estimate DecreasedL, Platelet Morphology Normal, Hypochromasia 3+, Anisocytosis 1+, Sodium Level 143, Potassium Level 5.0, Chloride Level 107, Carbon Dioxide Level 25, Anion Gap 11, Blood Urea Nitrogen 85H, Creatinine 10.7H, Estimat Glomerular Filtration Rate 5.9, Glucose Level 86, Calcium Level 8.4L, Total Bilirubin 0.2, Aspartate Amino Transf (AST/SGOT) 14L, Alanine Aminotransferase (ALT/SGPT) 10L, Alkaline Phosphatase 109, Total Protein 6.7, Albumin 2.8L, Globulin 3.9, Albumin /Globulin Ratio 0.7L, Hemoglobin A1c 4.9, Uric Acid 6.2, Phosphorus Level 6.8H, Magnesium Level 2.8H, Gamma Glutamyl Transpeptidase 11, Total Creatine Kinase 38 , C-Reactive Protein, Quantitative 2.1H, Pro-B-Type Natriuretic Peptide 6847H, Triglycerides Level 35, Cholesterol Level 108, LDL Cholesterol 63, HDL Cholesterol 39L, Cholesterol/HDL Ratio 2.8L, Thyroid Stimulating Hormone (TSH) 2.672 Height (Feet): 5 Height (Inches): 9.00 Weight (Pounds): 173 General Appearance: no apparent distress, alert, confused Tara Ward MD Jun 15, 2018 11:16
--- NOTE | 2018-06-15 11:49 | Consultation ---
Consult Note Consult Note asked to eval for dialysis management 67-year-old male presents ED for evaluation. [facility] Per nursing staff patient does not follow orders refuses care. At risk for elopement. Patient has been evaluated by psychiatry. Upon arrival patient is not cooperative and is not answering questions. History of end-stage renal disease and is on dialysis. No reported chest pain or shortness of breath. No signs of distress. No other aggravating relieving factors. No other associated symptoms Past Medical History: DM, HTN, asthma, COPD, renal disease, dialysis Hx Cardiac Problems: Yes Hx Hypertension: Yes Hx Asthma: Yes Hx COPD: Yes Hx Diabetes: Yes Hx Dialysis: Yes Hx Meningitis: Yes Hx Headaches: Yes Hx Fatigue: Yes patient confused and dysphasic data reviewed examined Assessment/Plan Encephalopathy ? CHF Sever Anemia : Etiology? ESRD on HD :has left chest permacath DM HTN OOC hyperlipidemia Plan; Continue dialysis as needed optimize cardiac status 2 D echo adjust BP meds Anemia work up : ? transfusion stop ora hypoglycemics for now per orders Mirza Conde MD Jun 15, 2018 11:49
[2018-06-15 12:00] VITALS: BP 144/64
[2018-06-15] MEDS ORDERED: Haloperidol Decanoate 50mg Inj IM ONE (12:30)
[2018-06-15 12:50] LABS: FERRITIN 261 NG/ML (8-388)
[2018-06-15 13:05] LABS: % IRON SATURATION 27 % (15-50); IRON 41 ug/dL (50-175); TOTAL IRON BINDING CAPACITY 152 ug/dL (250-450)
[2018-06-15] MEDS: Docusate 100mg cap ORAL SCH ×2 (13:45→17:44)
[2018-06-15] MEDS: Tamsulosin 0.4mg cap ORAL SCH ×2 (13:48→23:22)
[2018-06-15] MEDS ORDERED: LORAZEPAM2 MG ORAL (15:04)
[2018-06-15] MEDS ORDERED: LABETALOL HCL100 MG ORAL (15:06)
[2018-06-15] MEDS ORDERED: PROTONIX40 MG ORAL (15:07)
[2018-06-15] MEDS ORDERED: MIRALAX17 G2 ORAL (15:07)
[2018-06-15] MEDS ORDERED: NORVASC5 MG ORAL (15:08)
[2018-06-15] MEDS ORDERED: RENVELA0.8 GM ORAL (15:08)
[2018-06-15] MEDS ORDERED: TRAMADOL HCL50 MG ORAL (15:09)
[2018-06-15] MEDS ORDERED: CATAPRES0.1 MG ORAL (15:09)
[2018-06-15 16:00] VITALS: BP 153/69
[2018-06-15 19:41] VITALS: BP 152/61
[2018-06-15] MEDS ORDERED: Tamsulosin 0.4mg cap ORAL SCH ×2 (21:00)
--- NOTE | 2018-06-15 23:05 | General Progress Note ---
Assessment/Plan Status: not improved Status Narrative 67 yo man with ESRD on HD comes in with acute encephalopathy of unknown etiology Assessment/Plan 1) Acute Encephalopathy Psychiatry consult appreciated Haldol PRN for agitation Seroquel commenced f/u urine culture 2) ESRD on HD -Nephrology consulted for HD; recs appreciated -has left chest permacath -f/u TTE 3) Severe Anemia, macrocytic - unclear etiology - no signs of GI bleed -check iron studies, B12, folate 4) DM Hold meds ISS 5) HTN, uncontrolled -adjust BP meds DVT Prophylaxis: scd's Code status: full Hospital Classification declaration: Based on this initial evaluation, and depending on the patient's clinical course, I anticipate that this patient will require hospitalization for 2-3 days. Disposition: Once the patient is stable to leave the hospital, I anticipate the patient will likely be discharged to the following environment:SNF I spent 45 minutes on this patient's case, and 23 minutes was dedicated to counseling and/or care coordination. Time of note may not reflect time of encounter. Subjective Date patient seen: Jun 15, 2018 Time patient seen: 14:55 ROS Limited/Unobtainable: Yes Constitutional: Reports: no symptoms HEENT: Reports: no symptoms Cardiovascular: Reports: no symptoms Respiratory: Reports: no symptoms Gastrointestinal/Abdominal: Reports: no symptoms Neurologic/Psychiatric: Reports: no symptoms Endocrine: Reports: no symptoms Hematologic/Lymphatic: Reports: no symptoms Allergies: Coded Allergies: No Known Allergies (Verified , 11/24/07) All Systems: reviewed and negative except above Subjective Events of overnight noted Patient agitated, threatining staff required Haldol Now calmer Objective Last 24 Hour Vital Signs Date Time Temp Pulse Resp B/P (MAP) Pulse Ox O2 Delivery O2 Flow Rate FiO2 06/15/18 22:15 Room Air 06/15/18 21:00 Room Air 06/15/18 19:41 98.1 76 16 152/61 (91) 91 98.1 06/15/18 19:10 Room Air 06/15/18 17:44 72 153/69 06/15/18 16:00 96.1 72 18 153/69 (97) 91 96.1 06/15/18 13:45 69 144/64 06/15/18 12:00 96.8 69 18 144/64 (90) 94 96.8 06/15/18 08:20 66 145/59 06/15/18 08:00 98.2 66 18 145/59 (87) 94 98.2 06/15/18 07:10 80 142/65 06/15/18 04:00 97.9 80 19 142/65 (90) 94 97.9 06/15/18 00:45 97.9 91 19 150/69 (96) 99 97.9 06/15/18 00:00 192/77 06/15/18 00:00 79 192/77 06/14/18 23:46 Room Air Intake and Output 06/14/18 06/15/18 19:00 07:00 Intake Total 320 ml Output Total 276 ml Balance 44 ml Intake Oral 320 ml Output Urine Total 275 ml Stool Total 1 ml Laboratory Tests 06/15/18 05:00: White Blood Count 3.7L, Red Blood Count 2.24L, Hemoglobin 7.1L, Hematocrit 22.3L , Mean Corpuscular Volume 100H, Mean Corpuscular Hemoglobin 31.6H, Mean Corpuscular Hemoglobin Concent 31.7L, Red Cell Distribution Width 15.1H, Platelet Count 137L, Mean Platelet Volume 5.7L, Neutrophils (%) (Auto) , Lymphocytes (%) (Auto) , Monocytes (%) (Auto) , Eosinophils (%) (Auto) , Basophils (%) (Auto) , Differential Total Cells Counted 100, Neutrophils % ( Manual) 70, Lymphocytes % (Manual) 16L, Monocytes % (Manual) 10, Eosinophils % ( Manual) 4H, Basophils % (Manual) 0, Band Neutrophils 0, Platelet Estimate DecreasedL, Platelet Morphology Normal, Hypochromasia 3+, Anisocytosis 1+, Sodium Level 143, Potassium Level 5.0, Chloride Level 107, Carbon Dioxide Level 25, Anion Gap 11, Blood Urea Nitrogen 85H, Creatinine 10.7H, Estimat Glomerular Filtration Rate 5.9, Glucose Level 86, Hemoglobin A1c 4.9, Uric Acid 6.2, Calcium Level 8.4L, Phosphorus Level 6.8H, Magnesium Level 2.8H, Iron Level 41L , Total Iron Binding Capacity 152L, Percent Iron Saturation 27, Unsaturated Iron Binding 111L, Ferritin 261, Total Bilirubin 0.2, Gamma Glutamyl Transpeptidase 11, Aspartate Amino Transf (AST/SGOT) 14L, Alanine Aminotransferase (ALT/SGPT) 10L, Alkaline Phosphatase 109, Total Creatine Kinase 38, C-Reactive Protein, Quantitative 2.1H, Pro-B-Type Natriuretic Peptide 6847H, Total Protein 6.7, Albumin 2.8L, Globulin 3.9, Albumin/Globulin Ratio 0.7L, Triglycerides Level 35, Cholesterol Level 108, LDL Cholesterol 63, HDL Cholesterol 39L, Cholesterol/HDL Ratio 2.8L, Vitamin B12 Level 519, Folate 9.7, Thyroid Stimulating Hormone (TSH) 2.672 Height (Feet): 5 Height (Inches): 9.00 Weight (Pounds): 173 General Appearance: no apparent distress, lethargic, confused EENT: PERRL/EOMI, TMs normal, pharynx normal Neck: non-tender Cardiovascular: normal peripheral pulses, normal rate, regular rhythm Respiratory/Chest: chest wall non-tender, lungs clear Abdomen: normal bowel sounds, non tender, soft Pelvis: normal external exam Extremities: normal range of motion, non-tender Edema: no edema noted Arm (L), no edema noted Arm (R) Edema: trace edema Neurologic: no motor/sensory deficits Skin: normal pigmentation, warm/dry Lymphatic: normal anterior cervical (L), normal anterior cervical (R) Ebenezer Zavala M.D. Jun 15, 2018 23:05
[2018-06-15] MEDS: LORazepam 1mg tab ORAL PRN (23:20)
[2018-06-16] VITALS (7 sets, daily range): BP systolic 138–181; BP diastolic 62–106
[2018-06-16] MEDS ORDERED: DiphenhydrAMINE 50mg/ml Inj IM SCH (02:00)
[2018-06-16] MEDS ORDERED: Haloperidol 5mg/ml Inj IM SCH (02:00)
[2018-06-16] MEDS ORDERED: LORazepam Inj 2mg/ml 1ml IM SCH (02:00)
[2018-06-16] MEDS: NovoLOG Insulin Flexpen SUBQ SCH ×4 (05:59→20:16)
[2018-06-16 06:00] LABS: BASOPHILS % (AUTO) 0.7 % (0.0-2.0); EOSINOPHILS % (AUTO) 5.1 % (0.0-3.0); HEMATOCRIT 25.2 % (42.0-52.0); LYMPHOCYTES % (AUTO) 17.8 % (20.0-45.0); MEAN CORPUSCULAR VOLUME 100 FL (80-99); MONOCYTES % (AUTO) 10.1 % (1.0-10.0); NEUTROPHILS % (AUTO) 66.2 % (45.0-75.0); PLATELET COUNT 128 K/UL (150-450); RED BLOOD COUNT 2.52 M/UL (4.70-6.10); RED CELL DISTRIBUTION WIDTH 14.8 % (11.6-14.8); WHITE BLOOD COUNT 3.7 K/UL (4.8-10.8)
[2018-06-16 06:44] LABS: ALANINE AMINOTRANSFERASE 12 U/L (12-78); ALBUMIN 3.1 G/DL (3.4-5.0); ALBUMIN/GLOBULIN RATIO 0.7 (1.0-2.7); ALKALINE PHOSPHATASE 119 U/L (46-116); ANION GAP 5 mmol/L (5-15); ASPARTATE AMINO TRANSFERASE 14 U/L (15-37); BILIRUBIN,TOTAL 0.3 MG/DL (0.2-1.0); BLOOD UREA NITROGEN 65 mg/dL (7-18); CALCIUM 8.7 MG/DL (8.5-10.1); CARBON DIOXIDE 32 MMOL/L (21-32); CHLORIDE 103 MMOL/L (98-107); CREATINE KINASE 102 U/L (26-308); CREATININE 8.4 MG/DL (0.55-1.30); GAMMA GLUTAMYL TRANSPEPTIDASE 11 U/L (5-85); PHOSPHORUS 5.3 MG/DL (2.5-4.9); POTASSIUM 4.5 MMOL/L (3.5-5.1); SODIUM 140 MMOL/L (136-145)
[2018-06-16] MEDS: Aspirin Baby 81mg ORAL SCH (08:35)
[2018-06-16] MEDS: Docusate 100mg cap ORAL SCH ×3 (08:35→19:24)
[2018-06-16] MEDS: Tamsulosin 0.4mg cap ORAL SCH ×2 (08:35→20:15)
--- NOTE | 2018-06-16 11:41 | General Progress Note ---
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 -Haldol cocktail -Haldol Dec -Ativan prn -Seroquel 100mg po tid Subjective Date patient seen: Jun 16, 2018 Neurologic/Psychiatric: Reports: anxiety, depressed, emotional problems Allergies: Coded Allergies: No Known Allergies (Verified , 11/24/07) Subjective the pt lacks capacity and is confused not able to answer the questions Objective Last 24 Hour Vital Signs Date Time Temp Pulse Resp B/P (MAP) Pulse Ox O2 Delivery O2 Flow Rate FiO2 06/16/18 08:36 86 170/67 06/16/18 08:28 97.9 86 19 170/67 (101) 93 97.9 06/16/18 05:59 80 144/62 06/16/18 04:42 97.9 80 16 144/62 (89) 93 97.9 06/16/18 00:00 98.1 87 14 138/106 (117) 93 98.1 06/15/18 22:15 Room Air 06/15/18 22:00 76 152/61 06/15/18 21:00 Room Air 06/15/18 19:41 98.1 76 16 152/61 (91) 91 98.1 06/15/18 19:10 Room Air 06/15/18 17:44 72 153/69 06/15/18 16:00 96.1 72 18 153/69 (97) 91 96.1 06/15/18 13:45 69 144/64 06/15/18 12:00 96.8 69 18 144/64 (90) 94 96.8 Intake and Output 06/15/18 06/16/18 19:00 07:00 Intake Total 620 ml Output Total 2150 ml Balance 620 ml -2150 ml Intake Oral 620 ml Hemodialysis UF 2150 ml # Voids 1 2 Laboratory Tests 06/16/18 05:00: White Blood Count 3.7L, Red Blood Count 2.52L, Hemoglobin 8.0L, Hematocrit 25.2L , Mean Corpuscular Volume 100H, Mean Corpuscular Hemoglobin 31.8H, Mean Corpuscular Hemoglobin Concent 31.8L, Red Cell Distribution Width 14.8, Platelet Count 128L, Mean Platelet Volume 7.2, Neutrophils (%) (Auto) 66.2, Lymphocytes (%) (Auto) 17.8L, Monocytes (%) (Auto) 10.1H, Eosinophils (%) (Auto ) 5.1H, Basophils (%) (Auto) 0.7, Sodium Level 140, Potassium Level 4.5, Chloride Level 103, Carbon Dioxide Level 32, Anion Gap 5, Blood Urea Nitrogen 65H, Creatinine 8.4H, Estimat Glomerular Filtration Rate 7.8, Glucose Level 87, Uric Acid 4.6, Calcium Level 8.7, Phosphorus Level 5.3H, Magnesium Level 2.4, Total Bilirubin 0.3, Gamma Glutamyl Transpeptidase 11, Aspartate Amino Transf ( AST/SGOT) 14L, Alanine Aminotransferase (ALT/SGPT) 12, Alkaline Phosphatase 119H , Total Creatine Kinase 102, Troponin I 0.010, Pro-B-Type Natriuretic Peptide 7747H, Total Protein 7.6, Albumin 3.1L, Globulin 4.5, Albumin/Globulin Ratio 0.7L Height (Feet): 5 Height (Inches): 9.00 Weight (Pounds): 202 General Appearance: no apparent distress, alert, confused Tara Ward MD Jun 16, 2018 11:41
[2018-06-16] MEDS ORDERED: HydrALAZINE 25mg tab ORAL PRN (12:00)
[2018-06-16] MEDS ORDERED: Lisinopril 10mg tab ORAL SCH (12:00)
--- NOTE | 2018-06-16 12:00 | Nephrology Progress Note ---
Assessment/Plan Problem List: (1) ESRD (end stage renal disease) on dialysis (2) Anemia in chronic kidney disease (CKD) (3) Hypertensive kidney disease (4) Encephalopathy Assessment Encephalopathy ? CHF Sever Anemia : Etiology? ESRD on HD :has left chest permacath DM HTN OOC hyperlipidemia Plan Plan; Continue dialysis as needed done 06/15 next 06/17 optimize cardiac status 2 D echo Pending adjust BP meds Anemia work up : ? transfusion stop oral hypoglycemics for now per orders Objective Objective Last 24 Hour Vital Signs Date Time Temp Pulse Resp B/P (MAP) Pulse Ox O2 Delivery O2 Flow Rate FiO2 06/16/18 09:00 Room Air 06/16/18 08:36 86 170/67 06/16/18 08:28 97.9 86 19 170/67 (101) 93 97.9 06/16/18 05:59 80 144/62 06/16/18 04:42 97.9 80 16 144/62 (89) 93 97.9 06/16/18 00:00 98.1 87 14 138/106 (117) 93 98.1 06/15/18 22:15 Room Air 06/15/18 22:00 76 152/61 06/15/18 21:00 Room Air 06/15/18 19:41 98.1 76 16 152/61 (91) 91 98.1 06/15/18 19:10 Room Air 06/15/18 17:44 72 153/69 06/15/18 16:00 96.1 72 18 153/69 (97) 91 96.1 06/15/18 13:45 69 144/64 06/15/18 12:00 96.8 69 18 144/64 (90) 94 96.8 Intake and Output 06/15/18 06/16/18 19:00 07:00 Intake Total 620 ml Output Total 2150 ml Balance 620 ml -2150 ml Intake Oral 620 ml Hemodialysis UF 2150 ml # Voids 1 2 Laboratory Tests 06/16/18 05:00: White Blood Count 3.7L, Red Blood Count 2.52L, Hemoglobin 8.0L, Hematocrit 25.2L , Mean Corpuscular Volume 100H, Mean Corpuscular Hemoglobin 31.8H, Mean Corpuscular Hemoglobin Concent 31.8L, Red Cell Distribution Width 14.8, Platelet Count 128L, Mean Platelet Volume 7.2, Neutrophils (%) (Auto) 66.2, Lymphocytes (%) (Auto) 17.8L, Monocytes (%) (Auto) 10.1H, Eosinophils (%) (Auto ) 5.1H, Basophils (%) (Auto) 0.7, Sodium Level 140, Potassium Level 4.5, Chloride Level 103, Carbon Dioxide Level 32, Anion Gap 5, Blood Urea Nitrogen 65H, Creatinine 8.4H, Estimat Glomerular Filtration Rate 7.8, Glucose Level 87, Uric Acid 4.6, Calcium Level 8.7, Phosphorus Level 5.3H, Magnesium Level 2.4, Total Bilirubin 0.3, Gamma Glutamyl Transpeptidase 11, Aspartate Amino Transf ( AST/SGOT) 14L, Alanine Aminotransferase (ALT/SGPT) 12, Alkaline Phosphatase 119H , Total Creatine Kinase 102, Troponin I 0.010, Pro-B-Type Natriuretic Peptide 7747H, Total Protein 7.6, Albumin 3.1L, Globulin 4.5, Albumin/Globulin Ratio 0.7L Height (Feet): 5 Height (Inches): 9.00 Weight (Pounds): 202 Mirza Conde MD Jun 16, 2018 12:00
--- NOTE | 2018-06-16 12:42 | Consultation ---
History of Present Illness General Date patient seen: Jun 16, 2018 Chief Complaint: Generalized Weakness Present Illness HPI 67-year-old male with hx of DM, HTN, asthma, COPD, renal disease, dialysis, hx of pleural effusion, assisted resident presented to ED for evaluation of acute delirium and encephalopathy. Upon arrival patient is not cooperative and is not answering questions. No signs of distress. Pt is still confused and insist on leaving the hospital. Allergies: Coded Allergies: No Known Allergies (Verified , 11/24/07) Medication History Scheduled Amlodipine Besylate (Norvasc), 5 MG ORAL BID, (Reported) Clonidine Hcl* (Catapres*), 0.1 MG ORAL EVERY 4 HOURS, (Reported) Labetalol Hcl* (Normodyne*), 100 MG ORAL EVERY 8 HOURS, (Reported) Lorazepam* (Lorazepam*), 2 MG ORAL EVERY 6 HOURS, (Reported) Pantoprazole* (Protonix*), 40 MG ORAL DAILY, (Reported) Polyethylene Glycol 3350* (Miralax*), 17 GM ORAL DAILY, (Reported) Sevelamer Carbonate* (Renvela*), 1,600 MG ORAL THREE TIMES A DAY, (Reported) Scheduled PRN Tramadol Hcl* (Ultram*), 50 MG ORAL Q6H PRN for For Pain, (Reported) Discontinued Medications Albuterol Sulfate* (Proair Hfa*), (Reported) Discontinued Reason: MD discontinued med Albuterol Sulfate* (Albuterol Sulfate Mdi*), 2 PUFF INH Q4H PRN for Shortness of Breath Discontinued Reason: MD discontinued med Amino Acids/Protein Hydrolys (Liquacel 100 Liquid Packet), 30 ML PO, (Reported) Discontinued Reason: Pt had allergic rxn Amlodipine Besylate (Norvasc), 5 MG ORAL BID Discontinued Reason: MD discontinued med Atorvastatin Calcium* (Lipitor*), 20 MG ORAL BEDTIME Discontinued Reason: Medication dose changed Atorvastatin Calcium* (Atorvastatin Calcium*), 10 MG ORAL BEDTIME, (Reported) Discontinued Reason: Medication dose changed Bisacodyl* (Dulcolax*), 10 MG ORAL DAILY, (Reported) Discontinued Reason: MD discontinued med Carvedilol (Coreg), 25 MG ORAL EVERY 12 HOURS Discontinued Reason: MD discontinued med Darbepoetin Yao in Polysorbat (Aranesp), 200 MCG IV ONCE A WEEK, (Reported) Discontinued Reason: MD discontinued med Ferrous Sulfate* (Ferrous Sulfate*), 325 MG ORAL DAILY Discontinued Reason: MD discontinued med Furosemide* (Lasix*), 20 MG ORAL DAILY, (Reported) Discontinued Reason: MD discontinued med Hum Insulin Nph/Reg Insulin Hm (Novolin 70-30 100 Unit/Ml Vial), (Reported) Discontinued Reason: MD discontinued med Hydralazine HCl (Hydralazine HCl), 50 MG ORAL Q8HR Discontinued Reason: Medication dose changed Insulin Aspart (Novolog Flexpen), 0 UNITS SUBQ BEFORE MEALS AND HS Discontinued Reason: MD discontinued med Insulin Detemir (Levemir Flexpen), 30 UNITS SUBQ Q24H Discontinued Reason: MD discontinued med Insulin Human Isophan/Regular (Humulin 70-30 Vial), Unknown Dose SUBQ PRN, ( Reported) Discontinued Reason: MD discontinued med Insulin Lispro (Humalog), 1 UNIT SUBQ TIAC, (Reported) Discontinued Reason: MD discontinued med Insuln Asp Prt/Insulin Aspart (Novolog Mix 70-30 Vial), (Reported) Discontinued Reason: MD discontinued med Iron Sucrose Complex (Venofer), 50 MG IV, (Reported) Discontinued Reason: MD discontinued med Lisinopril/Hydrochlorothiazide (Zestoretic 20-25 mg Tablet), Unknown Dose ORAL DAILY, (Reported) Discontinued Reason: MD discontinued med Melatonin (Melatonin), 3 MG ORAL BEDTIME PRN for Insomnia, (Reported) Discontinued Reason: MD discontinued med Nateglinide* (Starlix*), 60 MG ORAL THREE TIMES A DAY Discontinued Reason: MD discontinued med Nitroglycerin (Nitrostat), 0.4 MG SL Q5M PRN for Prn Chest Pain Discontinued Reason: MD discontinued med Pantoprazole* (Pantoprazole*), (Reported) Discontinued Reason: Pt stopped taking med Pantoprazole* (Protonix*), 40 MG ORAL DAILY Discontinued Reason: Pt stopped taking med Paricalcitol (Zemplar), 5 MCG IV, (Reported) Discontinued Reason: MD discontinued med Polyethylene Glycol 3350* (Miralax*), 17 GM ORAL DAILY, (Reported) Discontinued Reason: MD discontinued med Risperidone (Risperidone), (Reported) Discontinued Reason: MD discontinued med Risperidone (Risperidone), (Reported) Discontinued Reason: MD discontinued med Sennosides (Senna), 17.2 MG PO QHS, (Reported) Discontinued Reason: MD discontinued med Sennosides* (Sennosides*), 8.6 MG ORAL DAILY, (Reported) Discontinued Reason: Medication dose changed Sertraline Hcl* (Zoloft*), (Reported) Discontinued Reason: MD discontinued med Sertraline Hcl* (Zoloft*), 25 MG ORAL DAILY Discontinued Reason: MD discontinued med Sitagliptin* (Januvia*), 25 MG ORAL DAILY Discontinued Reason: MD discontinued med Sucralfate* (Carafate*), 1 GM ORAL FOUR TIMES A DAY Discontinued Reason: MD discontinued med Tiotropium [place]* (Spiriva*), (Reported) Discontinued Reason: MD discontinued med Tramadol Hcl* (Ultram*), 50 MG ORAL DAILY PRN for For Pain, (Reported) Discontinued Reason: MD discontinued med Patient History Healthcare decision maker Resuscitation status Full Code Advanced Directive on File Past Medical/Surgical History Past Medical/Surgical History: (1) Anemia in chronic kidney disease (CKD) (2) Hypertensive kidney disease (3) History of hypertension (4) Pleural effusion (5) ESRD (end stage renal disease) on dialysis Review of Systems All Other Systems: negative except mentioned in HPI Physical Exam General Appearance: WD/WN Lines, tubes and drains: peripheral HEENT: normocephalic Neck: non-tender, normal alignment Respiratory/Chest: chest wall non-tender, normal breath sounds Breasts: no masses Cardiovascular/Chest: normal rate Abdomen: normal bowel sounds, non tender Genitourinary/Rectal: normal genital exam Extremities: normal range of motion Last 24 Hour Vital Signs Date Time Temp Pulse Resp B/P (MAP) Pulse Ox O2 Delivery O2 Flow Rate FiO2 06/16/18 09:00 Room Air 06/16/18 08:36 86 170/67 06/16/18 08:28 97.9 86 19 170/67 (101) 93 97.9 06/16/18 05:59 80 144/62 06/16/18 04:42 97.9 80 16 144/62 (89) 93 97.9 06/16/18 00:00 98.1 87 14 138/106 (117) 93 98.1 06/15/18 22:15 Room Air 06/15/18 22:00 76 152/61 06/15/18 21:00 Room Air 06/15/18 19:41 98.1 76 16 152/61 (91) 91 98.1 06/15/18 19:10 Room Air 06/15/18 17:44 72 153/69 06/15/18 16:00 96.1 72 18 153/69 (97) 91 96.1 06/15/18 13:45 69 144/64 Intake and Output 06/15/18 06/16/18 19:00 07:00 Intake Total 620 ml Output Total 2150 ml Balance 620 ml -2150 ml Intake Oral 620 ml Hemodialysis UF 2150 ml # Voids 1 2 Laboratory Tests Test 06/16/18 05:00 White Blood Count 3.7 K/UL (4.8-10.8) L Red Blood Count 2.52 M/UL (4.70-6.10) L Hemoglobin 8.0 G/DL (14.2-18.0) L Hematocrit 25.2 % (42.0-52.0) L Mean Corpuscular Volume 100 FL (80-99) H Mean Corpuscular Hemoglobin 31.8 PG (27.0-31.0) H Mean Corpuscular Hemoglobin Concent 31.8 G/DL (32.0-36.0) L Red Cell Distribution Width 14.8 % (11.6-14.8) Platelet Count 128 K/UL (150-450) L Mean Platelet Volume 7.2 FL (6.5-10.1) Neutrophils (%) (Auto) 66.2 % (45.0-75.0) Lymphocytes (%) (Auto) 17.8 % (20.0-45.0) L Monocytes (%) (Auto) 10.1 % (1.0-10.0) H Eosinophils (%) (Auto) 5.1 % (0.0-3.0) H Basophils (%) (Auto) 0.7 % (0.0-2.0) Sodium Level 140 MMOL/L (136-145) Potassium Level 4.5 MMOL/L (3.5-5.1) Chloride Level 103 MMOL/L (98-107) Carbon Dioxide Level 32 MMOL/L (21-32) Anion Gap 5 mmol/L (5-15) Blood Urea Nitrogen 65 mg/dL (7-18) H Creatinine 8.4 MG/DL (0.55-1.30) H Estimat Glomerular Filtration Rate 7.8 mL/min (>60) Glucose Level 87 MG/DL (74-106) Uric Acid 4.6 MG/DL (2.6-7.2) Calcium Level 8.7 MG/DL (8.5-10.1) Phosphorus Level 5.3 MG/DL (2.5-4.9) H Magnesium Level 2.4 MG/DL (1.8-2.4) Total Bilirubin 0.3 MG/DL (0.2-1.0) Gamma Glutamyl Transpeptidase 11 U/L (5-85) Aspartate Amino Transf (AST/SGOT) 14 U/L (15-37) L Alanine Aminotransferase (ALT/SGPT) 12 U/L (12-78) Alkaline Phosphatase 119 U/L (46-116) H Total Creatine Kinase 102 U/L (26-308) Troponin I 0.010 ng/mL (0.000-0.056) Pro-B-Type Natriuretic Peptide 7747 pg/mL (0-125) H Total Protein 7.6 G/DL (6.4-8.2) Albumin 3.1 G/DL (3.4-5.0) L Globulin 4.5 g/dL Albumin/Globulin Ratio 0.7 (1.0-2.7) L Height (Feet): 5 Height (Inches): 9.00 Weight (Pounds): 202 Medications Current Medications Medications (Trade) Dose Ordered Sig/Praveen Route PRN Reason Start Time Stop Time Status Last Admin Dose Admin Amlodipine Besylate (Norvasc) 10 mg BID ORAL 06/16/18 18:00 07/15/18 08:59 Aspirin (ASA) 81 mg DAILY ORAL 06/15/18 09:00 07/15/18 08:59 06/16/18 08:35 Atorvastatin Calcium (Lipitor) 10 mg BEDTIME ORAL 06/15/18 21:00 07/15/18 20:59 06/15/18 23:22 Dextrose (Dextrose 50%) 25 ml STAT PRN IV Hypoglycemia 06/14/18 23:15 07/14/18 23:14 Dextrose (Dextrose 50%) 50 ml STAT PRN IV Hypoglycemia 06/14/18 23:15 07/14/18 23:14 Docusate Sodium (Colace) 100 mg TID ORAL 06/15/18 13:00 07/15/18 08:59 06/16/18 08:35 Epoetin Yao (Procrit (for ESRD on dialysis)) 10,000 units THU-THU-THU SUBQ 06/16/18 21:00 07/16/18 20:59 Folic Acid (Folate) 2 mg DAILY ORAL 06/16/18 12:30 07/16/18 12:29 Heparin Sodium (Porcine) (Heparin 5000 units/ml) 5,000 units EVERY 12 HOURS SUBQ 06/15/18 09:00 07/15/18 08:59 Hydralazine HCl (Apresoline) 25 mg Q4HR PRN ORAL bp over 160 syst 06/16/18 12:00 07/16/18 11:59 Insulin Aspart (NovoLOG) BEFORE MEALS AND HS SUBQ 06/15/18 06:30 07/15/18 06:29 06/15/18 17:45 Iron Sucrose 200 mg/Sodium Chloride 120 ml @ 240 mls/hr ONCE ONCE IV 06/16/18 14:00 06/16/18 14:29 Labetalol HCl (Normodyne) 100 mg Q8HR ORAL 06/14/18 22:45 07/14/18 22:44 06/16/18 05:59 Lisinopril (Zestril) 10 mg BID ORAL 06/16/18 18:00 07/17/18 08:59 Lisinopril (Zestril) 10 mg ONCE ORAL 06/16/18 12:00 06/16/18 13:30 Lorazepam (Ativan) 2 mg Q6H PRN ORAL For Anxiety 06/15/18 11:45 06/22/18 11:44 06/15/18 23:20 Pantoprazole (Protonix) 40 mg DAILY ORAL 06/15/18 12:00 07/15/18 11:59 06/16/18 08:36 Polyethylene Glycol (Miralax) 17 gm DAILY PRN ORAL Constipation 06/14/18 23:15 07/14/18 23:14 Quetiapine Fumarate (SEROquel) 100 mg Q8HR ORAL 06/15/18 14:00 07/15/18 13:59 06/16/18 05:59 Sevelamer Carbonate (Renvela) 1,600 mg THREE TIMES A DAY ORAL 06/15/18 13:00 9/20/18 08:59 06/16/18 08:36 Tamsulosin HCl (Flomax) 0.4 mg Q12HR ORAL 06/15/18 12:00 07/15/18 11:59 06/16/18 08:35 Tramadol HCl (Ultram) 50 mg Q6H PRN ORAL pain 06/14/18 23:15 06/21/18 23:14 Assessment/Plan Problem List: (1) Pleural effusion ICD Codes: J90 - Pleural effusion, not elsewhere classified SNOMED: 41026038 (2) Encephalopathy ICD Codes: G93.40 - Encephalopathy, unspecified SNOMED: 63224520 (3) Hypertensive kidney disease ICD Codes: I12.9 - Hypertensive chronic kidney disease with stage 1 through stage 4 chronic kidney disease, or unspecified chronic kidney disease SNOMED: 15767905 (4) Anemia in chronic kidney disease (CKD) ICD Codes: N18.9 - Chronic kidney disease, unspecified; D63.1 - Anemia in chronic kidney disease SNOMED: 427959925, 896309588 (5) ESRD (end stage renal disease) on dialysis ICD Codes: N18.6 - End stage renal disease; Z99.2 - Dependence on renal dialysis SNOMED: 803920514 Assessment/Plan cxr respiratory treatment titrate fio2 to sat of 92% psych evaluation social service evaluation Denise Rogers MD Jun 16, 2018 12:42
[2018-06-16] MEDS ORDERED: LORazepam Inj 2mg/ml 1ml IM ONE (13:30)
[2018-06-16] MEDS ORDERED: DiphenhydrAMINE 50mg/ml Inj IM ONE (13:30)
[2018-06-16] MEDS ORDERED: Haloperidol 5mg/ml Inj IM ONE (13:45)
[2018-06-16] MEDS ORDERED: Iron Sucrose 200 MG in NS 110 ML IV ONE (14:00)
--- NOTE | 2018-06-16 16:09 | Diagnostic Imaging Report ---
Indication: Reason For Exam: DYSPNEA Technique: One view of the chest Comparison: 01/14/2017 Findings: Right jugular tunneled dialysis catheter is again demonstrated. There is opacification of the left lower hemithorax, likely combination of parenchymal consolidation and pleural disease. The extent appears similar to the previous study. There is some calcification in the left pleural space. There is been interim median sternotomy. A valve prosthesis is now evident in the expected region of the aortic valve, appearance suggestive of a percutaneously introduced valve. The heart size is difficult to assess, probably mildly enlarged Impression: Left basilar opacification, likely combination of pleural fluid and parenchymal infiltrate. Similarity in extent from previous study and presence of pleural calcification raises possibility of a chronic component as well. Interim median sternotomy. Interim aortic valve repair, possibly percutaneous. Correlate with surgical history
[2018-06-16] MEDS: Lisinopril 10mg tab ORAL SCH (18:00)
[2018-06-16] MEDS: Heparin 5000 units/ml inj SUBQ SCH (20:22)
[2018-06-16] MEDS ORDERED: Epogen (for ESRD on dialysis) SUBQ SCH (21:00)
--- NOTE | 2018-06-16 22:50 | General Progress Note ---
Assessment/Plan Status: not improved Status Narrative 67 yo man with ESRD on HD comes in with acute encephalopathy of unknown etiology Assessment/Plan 1) Acute Encephalopathy Psychiatry consult appreciated Haldol PRN for agitation f/u urine culture 2) ESRD on HD -Nephrology consulted for HD- recs appreciated -has left chest permacath -TTE 3) Severe Anemia, macrocytic - unclear etiology; stable - no signs of GI bleed -check iron studies, B12, folate 4) DM Hold meds ISS 5) HTN, uncontrolled -adjust BP meds DVT Prophylaxis: scd Code status: full Hospital Classification declaration: Based on this initial evaluation, and depending on the patient's clinical course, I anticipate that this patient will require hospitalization for 2-3 days. Disposition: Once the patient is stable to leave the hospital, I anticipate the patient will likely be discharged to the following environment:SNF ([facility]) I spent 45 minutes on this patient's case, and 23 minutes was dedicated to counseling and/or care coordination. Time of note may not reflect time of encounter. Subjective Date patient seen: Jun 16, 2018 Time patient seen: 13:02 ROS Limited/Unobtainable: Yes Constitutional: Reports: no symptoms HEENT: Reports: no symptoms Cardiovascular: Reports: no symptoms Respiratory: Reports: no symptoms Gastrointestinal/Abdominal: Reports: no symptoms Genitourinary: Reports: no symptoms Neurologic/Psychiatric: Reports: no symptoms Endocrine: Reports: no symptoms Hematologic/Lymphatic: Reports: no symptoms Allergies: Coded Allergies: No Known Allergies (Verified , 11/24/07) All Systems: reviewed and negative except above Subjective Events of overnight noted Patient remains intermittently agitated Calm this AM after Haldol Denies pain Objective Last 24 Hour Vital Signs Date Time Temp Pulse Resp B/P (MAP) Pulse Ox O2 Delivery O2 Flow Rate FiO2 06/16/18 20:46 Room Air 06/16/18 20:14 91 161/81 06/16/18 19:24 91 161/81 06/16/18 19:16 98.2 74 18 164/81 (108) 94 98.2 06/16/18 16:00 97.5 88 19 162/92 (115) 97.5 06/16/18 15:49 92 165/82 06/16/18 14:41 129/84 06/16/18 12:30 97.3 89 20 177/74 (108) 98 97.3 06/16/18 09:00 Room Air 06/16/18 08:36 86 170/67 06/16/18 08:28 97.9 86 19 170/67 (101) 93 97.9 06/16/18 05:59 80 144/62 06/16/18 04:42 97.9 80 16 144/62 (89) 93 97.9 06/16/18 00:00 98.1 87 14 138/106 (117) 93 98.1 Intake and Output 06/15/18 06/16/18 19:00 07:00 Intake Total 620 ml Output Total 2150 ml Balance 620 ml -2150 ml Intake Oral 620 ml Hemodialysis UF 2150 ml # Voids 1 2 Laboratory Tests 06/16/18 05:00: White Blood Count 3.7L, Red Blood Count 2.52L, Hemoglobin 8.0L, Hematocrit 25.2L , Mean Corpuscular Volume 100H, Mean Corpuscular Hemoglobin 31.8H, Mean Corpuscular Hemoglobin Concent 31.8L, Red Cell Distribution Width 14.8, Platelet Count 128L, Mean Platelet Volume 7.2, Neutrophils (%) (Auto) 66.2, Lymphocytes (%) (Auto) 17.8L, Monocytes (%) (Auto) 10.1H, Eosinophils (%) (Auto ) 5.1H, Basophils (%) (Auto) 0.7, Sodium Level 140, Potassium Level 4.5, Chloride Level 103, Carbon Dioxide Level 32, Anion Gap 5, Blood Urea Nitrogen 65H, Creatinine 8.4H, Estimat Glomerular Filtration Rate 7.8, Glucose Level 87, Uric Acid 4.6, Calcium Level 8.7, Phosphorus Level 5.3H, Magnesium Level 2.4, Total Bilirubin 0.3, Gamma Glutamyl Transpeptidase 11, Aspartate Amino Transf ( AST/SGOT) 14L, Alanine Aminotransferase (ALT/SGPT) 12, Alkaline Phosphatase 119H , Total Creatine Kinase 102, Troponin I 0.010, Pro-B-Type Natriuretic Peptide 7747H, Total Protein 7.6, Albumin 3.1L, Globulin 4.5, Albumin/Globulin Ratio 0.7L Height (Feet): 5 Height (Inches): 9.00 Weight (Pounds): 202 General Appearance: no apparent distress, lethargic, confused EENT: PERRL/EOMI, normal ENT inspection Neck: non-tender Cardiovascular: normal rate, regular rhythm Respiratory/Chest: chest wall non-tender, normal breath sounds, no respiratory distress Abdomen: normal bowel sounds, non tender, soft Pelvis: normal external exam Extremities: normal range of motion Edema: no edema noted Arm (L), no edema noted Arm (R) Edema: trace edema Neurologic: disoriented Skin: normal pigmentation Lymphatic: normal anterior cervical (L), normal anterior cervical (R) Ebenezer Zavala M.D. Jun 16, 2018 22:50
[2018-06-17 03:53] VITALS: BP 130/55
[2018-06-17] MEDS: LORazepam 1mg tab ORAL PRN (04:35)
[2018-06-17] MEDS: NovoLOG Insulin Flexpen SUBQ SCH ×2 (06:05→11:42)
[2018-06-17 07:25] VITALS: BP 145/83
[2018-06-17] MEDS: Tamsulosin 0.4mg cap ORAL SCH ×2 (08:36→08:46)
[2018-06-17] MEDS: Docusate 100mg cap ORAL SCH ×3 (08:36→13:00)
[2018-06-17] MEDS: Lisinopril 10mg tab ORAL SCH ×2 (08:36→08:47)
[2018-06-17] MEDS: Aspirin Baby 81mg ORAL SCH ×3 (08:36→10:00)
[2018-06-17] MEDS: Heparin 5000 units/ml inj SUBQ SCH (08:37)
[2018-06-17] MEDS: Iron Sucrose 200 MG in NS 110 ML IV ONE ×2 (08:37→10:27)
[2018-06-17] MEDS ORDERED: Lisinopril 10mg tab ORAL SCH (09:00)
--- NOTE | 2018-06-17 11:01 | Nephrology Progress Note ---
Assessment/Plan Problem List: (1) ESRD (end stage renal disease) on dialysis (2) Anemia in chronic kidney disease (CKD) (3) Hypertensive kidney disease (4) Encephalopathy Assessment Encephalopathy ? CHF Sever Anemia : Etiology? ESRD on HD :has left chest permacath DM HTN OOC hyperlipidemia Plan Plan; Continue dialysis as needed done 06/15 next 06/17- currently in process optimize cardiac status 2 D echo Pending adjust BP meds Anemia work up : ? transfusion stop oral hypoglycemics for now per orders Subjective ROS Limited/Unobtainable: No Objective Objective Last 24 Hour Vital Signs Date Time Temp Pulse Resp B/P (MAP) Pulse Ox O2 Delivery O2 Flow Rate FiO2 06/17/18 08:47 84 140/80 06/17/18 08:47 140/80 06/17/18 08:40 Room Air 06/17/18 07:25 98.1 83 15 145/83 (103) 95 98.1 06/17/18 07:05 Room Air 06/17/18 04:35 79 130/55 06/17/18 03:53 98.1 79 15 130/55 (80) 95 98.1 06/16/18 23:54 181/76 06/16/18 23:42 97.2 89 17 181/76 (111) 95 97.2 06/16/18 20:46 Room Air 06/16/18 20:14 91 161/81 06/16/18 19:24 91 161/81 06/16/18 19:16 98.2 74 18 164/81 (108) 94 98.2 06/16/18 16:00 97.5 88 19 162/92 (115) 97.5 06/16/18 15:49 92 165/82 06/16/18 14:41 129/84 06/16/18 12:30 97.3 89 20 177/74 (108) 98 97.3 Intake and Output 06/16/18 06/17/18 19:00 07:00 Intake Total 600 ml 200 ml Balance 600 ml 200 ml Intake Oral 600 ml 200 ml # Voids 1 Height (Feet): 5 Height (Inches): 9.00 Weight (Pounds): 202 General Appearance: no apparent distress Cardiovascular: normal rate Respiratory/Chest: lungs clear Abdomen: soft Objective no change in physical exam Mirza Conde MD Jun 17, 2018 11:00
[2018-06-17] MEDS ORDERED: ATIVAN1 MG ORAL (11:32)
[2018-06-17] MEDS ORDERED: SEROQUEL100 MG ORAL (11:32)
--- NOTE | 2018-06-17 11:33 | Discharge Summary ---
Discharge Summary Hospital Course Date of Admission Jun 14, 2018 at 14:58 Date of Discharge Admitting Diagnosis psychosis HPI Marce Miller is a 67 year old male who was admitted on Jun 14, 2018 at 14:58 for Psychosis Discharge Discharge Disposition Patient was discharged to SNF/Subacute Facility(03) Ebenezer Zavala M.D. Jun 17, 2018 11:33
--- NOTE | 2018-06-17 12:48 | Pulmonology Progress Note ---
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 Subjective ROS Limited/Unobtainable: No Constitutional: Reports: no symptoms HEENT: Repors: no symptoms Respiratory: Reports: no symptoms Allergies: Coded Allergies: No Known Allergies (Verified , 11/24/07) Objective Last 24 Hour Vital Signs Date Time Temp Pulse Resp B/P (MAP) Pulse Ox O2 Delivery O2 Flow Rate FiO2 06/17/18 11:45 Room Air 06/17/18 08:47 84 140/80 06/17/18 08:47 140/80 06/17/18 08:40 Room Air 06/17/18 07:25 98.1 83 15 145/83 (103) 95 98.1 06/17/18 07:05 Room Air 06/17/18 04:35 79 130/55 06/17/18 03:53 98.1 79 15 130/55 (80) 95 98.1 06/16/18 23:54 181/76 06/16/18 23:42 97.2 89 17 181/76 (111) 95 97.2 06/16/18 20:46 Room Air 06/16/18 20:14 91 161/81 06/16/18 19:24 91 161/81 06/16/18 19:16 98.2 74 18 164/81 (108) 94 98.2 06/16/18 16:00 97.5 88 19 162/92 (115) 97.5 06/16/18 15:49 92 165/82 06/16/18 14:41 129/84 Intake and Output 06/16/18 06/17/18 19:00 07:00 Intake Total 600 ml 200 ml Balance 600 ml 200 ml Intake Oral 600 ml 200 ml # Voids 1 General Appearance: no acute distress HEENT: normocephalic, atraumatic Respiratory/Chest: chest wall non-tender, lungs clear Cardiovascular: normal peripheral pulses, regular rhythm Abdomen: normal bowel sounds, no organomegaly Extremities: no clubbing Skin: no ulcers Neurologic/Psychiatric: no motor/sensory deficits Microbiology Date/Time Source Procedure Growth Status 06/14/18 20:52 Urine,Clean Catch Urine Culture - Preliminary NO GROWTH AFTER 24 HOURS Resulted Current Medications Medications (Trade) Dose Ordered Sig/Praveen Route PRN Reason Start Time Stop Time Status Last Admin Dose Admin Amlodipine Besylate (Norvasc) 10 mg BID ORAL 06/16/18 18:00 07/15/18 08:59 06/16/18 19:24 Aspirin (ASA) 81 mg DAILY ORAL 06/15/18 09:00 07/15/18 08:59 06/17/18 10:00 Atorvastatin Calcium (Lipitor) 10 mg BEDTIME ORAL 06/15/18 21:00 07/15/18 20:59 06/16/18 20:14 Dextrose (Dextrose 50%) 25 ml STAT PRN IV Hypoglycemia 06/14/18 23:15 07/14/18 23:14 Dextrose (Dextrose 50%) 50 ml STAT PRN IV Hypoglycemia 06/14/18 23:15 07/14/18 23:14 Docusate Sodium (Colace) 100 mg TID ORAL 06/15/18 13:00 07/15/18 08:59 06/16/18 19:24 Epoetin Yao (Procrit (for ESRD on dialysis)) 10,000 units MON-WED-FRI SUBQ 06/16/18 21:00 07/16/18 20:59 06/16/18 20:15 Folic Acid (Folate) 2 mg DAILY ORAL 06/16/18 12:30 07/16/18 12:29 06/16/18 14:42 Heparin Sodium (Porcine) (Heparin 5000 units/ml) 5,000 units EVERY 12 HOURS SUBQ 06/16/18 21:00 07/15/18 08:59 06/16/18 20:22 Hydralazine HCl (Apresoline) 25 mg Q4HR PRN ORAL bp over 160 syst 06/16/18 12:00 07/16/18 11:59 06/16/18 23:54 Insulin Aspart (NovoLOG) BEFORE MEALS AND HS SUBQ 06/15/18 06:30 07/15/18 06:29 06/17/18 11:42 Labetalol HCl (Normodyne) 100 mg Q8HR ORAL 06/14/18 22:45 07/14/18 22:44 06/17/18 04:35 Lisinopril (Zestril) 10 mg BID ORAL 06/16/18 18:00 07/17/18 08:59 Lorazepam (Ativan) 2 mg Q6H PRN ORAL For Anxiety 06/15/18 11:45 06/22/18 11:44 06/17/18 04:35 Pantoprazole (Protonix) 40 mg DAILY ORAL 06/15/18 12:00 07/15/18 11:59 06/16/18 08:36 Polyethylene Glycol (Miralax) 17 gm DAILY PRN ORAL Constipation 06/14/18 23:15 07/14/18 23:14 Quetiapine Fumarate (SEROquel) 100 mg Q8HR ORAL 06/15/18 14:00 07/15/18 13:59 06/17/18 04:35 Sevelamer Carbonate (Renvela) 1,600 mg THREE TIMES A DAY ORAL 06/15/18 13:00 07/15/18 08:59 06/16/18 19:24 Tamsulosin HCl (Flomax) 0.4 mg Q12HR ORAL 06/15/18 12:00 07/15/18 11:59 06/16/18 20:15 Tramadol HCl (Ultram) 50 mg Q6H PRN ORAL pain 06/14/18 23:15 06/21/18 23:14 Denise Rogers MD Jun 17, 2018 12:47
[2018-06-17 13:50] VITALS: BP 120/70
[2018-06-17 15:00] VITALS: BP 114/50
[2018-06-17 15:45] VITALS: BP 170/85
[2018-06-17] MEDS ORDERED: NS 275ml ONE (16:19)
--- NOTE | 2018-06-18 11:07 | General Progress Note ---
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 -Haldol cocktail -Haldol Dec -Ativan prn -Seroquel 100mg po tid Subjective Date patient seen: Jun 17, 2018 Neurologic/Psychiatric: Reports: anxiety, depressed, emotional problems Allergies: Coded Allergies: No Known Allergies (Verified , 11/24/07) Subjective the pt lacks capacity and is confused Objective Last 24 Hour Vital Signs Date Time Temp Pulse Resp B/P (MAP) Pulse Ox O2 Delivery O2 Flow Rate FiO2 06/17/18 15:45 98.0 86 18 170/85 (113) 98 98.0 06/17/18 15:00 98.1 80 18 114/50 (71) 95 98.1 06/17/18 13:50 98.1 80 18 120/70 (87) 95 98.1 06/17/18 13:19 84 130/80 06/17/18 11:45 Room Air Intake and Output 06/17/18 06/18/18 19:00 07:00 Intake Total 300 ml Output Total 2095 ml Balance -1795 ml Intake Oral 300 ml Hemodialysis UF 2095 ml # Bowel Movements 1 Height (Feet): 5 Height (Inches): 9.00 Weight (Pounds): 202 General Appearance: no apparent distress, alert, confused Tara Ward MD Jun 18, 2018 11:07
--- NOTE | 2018-06-18 11:28 | Cardiology Report ---
APPROVED REPORT EXAM: Two-dimensional and M-mode echocardiogram with Doppler and color Doppler. INDICATION Congestive Heart Failure M-Mode DIMENSIONS IVSd1.9 (0.7-1.1cm)Left Atrium (MM)4.5 (1.6-4.0cm) LVDd4.7 (3.5-5.6cm)Aortic Root3.0 (2.0-3.7cm) PWd1.4 (0.7-1.1cm)Aortic Cusp Exc.1.7 (1.5-2.0cm) LVDs3.0 (2.5-4.0cm) PWs2.4 cm Normal left ventricular chamber size, systolic function and wall motion. Moderate left ventricular hypertrophy. No evidence of pericardial effusion. Mild bi-atrial enlargement. Right ventricular chamber sizes is within normal limits. Aortic valve calcification with decreased cusp excursion c/w mild aortic stenosis. Mildly thickened mitral valve leaflets with normal excursion. Moderate mitral annulus and aortic root calcification. Normal pulmonic valve structure. Normal tricuspid valve structure. IVC measures at 2.0 with physiological collapse. A color flow and spectral Doppler study was performed and revealed: No aortic insufficiency. Peak aortic valve gradient of 24 mmHg and a mean of 12 mmHg. Aortic valve area 1.4 cm2 calculated by continuity equation. No mitral regurgitation. Mitral diastolic velocities suggest mild left ventricular diastolic dysfunction (Grade I). Mild to moderate tricuspid regurgitation. Tricuspid systolic velocities suggests peak right ventricular systolic pressure of 54 mmHg, consistent with moderate pulmonary hypertension. No pulmonic regurgitation present.
== END 2018-06-17 16:20 | DRG 70 ==
LOC: EDBD 13:14 → EMR 14:50 → 4W 14:58 → EDBEDREQ 15:07 → 4W 06-15 23:45
PROC: 5A1D70Z Performance of Urinary Filtration, Intermittent, Less than 6 Hours Per Day (ICD-10-PCS; principal; 2018-06-15)
DX: G93.40 Encephalopathy, unspecified (principal); N18.6 End stage renal disease; J90 Pleural effusion, not elsewhere classified; I12.0 Hypertensive chronic kidney disease with stage 5 chronic kidney disease or end stage renal disease; E11.22 Type 2 diabetes mellitus with diabetic chronic kidney disease; J44.9 Chronic obstructive pulmonary disease, unspecified; E78.5 Hyperlipidemia, unspecified; R45.1 Restlessness and agitation; D63.1 Anemia in chronic kidney disease
CPT/HCPCS: 36415; 71045; 80053; 80061; 80307; 80329; 81003; 82550; 82607; 82728; 82746; 82962; 82977; 83036; 83540; 83550; 83735; 83880; 84100; 84443; 84484; 84550; 85007; 85025; 86140; 87081; 87086; 93306; 99285; J1815

== ENCOUNTER 2018-07-15 19:04 | Inpatient (IN) | payer MEDICARE, MEDICAID ==
[~2018-07-15] VITALS: Ht 172.7 cm; Wt 83.5 kg
[~2018-07-15 19:04] MED LIST changes: +ASPIR 8181 MG ORAL; +ASPIRIN EC81 MG ORAL; +ATIVAN1 MG ORAL; +ATORVASTATIN CA10 MG ORAL; +ATORVASTATIN CA20 MG ORAL; +BISACODYL5 MG ORAL; +CATAPRES0.1 MG ORAL; +EPOGEN20000 UNIT SUBQ; +FAMOTIDINE40 MG ORAL; +HUMALOG100 UNIT/4 SUBQ; +LABETALOL HCL100 MG ORAL; +LORAZEPAM2 MG ORAL; +MELATONIN3 MG ORAL; +RENVELA0.8 GM ORAL; +SENNA8.6 M2 PO; +SENNOSIDES8.6 MG ORAL; +SEROQUEL100 MG ORAL; +TRAMADOL HCL50 MG ORAL
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
[2018-07-15 19:58] VITALS: BP 142/53
[2018-07-15 21:39] LABS: BASOPHILS % (AUTO) 0.9 % (0.0-2.0); EOSINOPHILS % (AUTO) 1.1 % (0.0-3.0); HEMOGLOBIN 8.3 G/DL (14.2-18.0); LYMPHOCYTES % (AUTO) 9.6 % (20.0-45.0); MEAN CORPUSCULAR VOLUME 102 FL (80-99); MONOCYTES % (AUTO) 6.4 % (1.0-10.0); PLATELET COUNT 97 K/UL (150-450); RED BLOOD COUNT 2.65 M/UL (4.70-6.10); RED CELL DISTRIBUTION WIDTH 15.4 % (11.6-14.8); WHITE BLOOD COUNT 4.8 K/UL (4.8-10.8)
[2018-07-15 21:48] LABS: INR 1.1 (0.9-1.1)
[2018-07-15 22:03] LABS: ALANINE AMINOTRANSFERASE 42 U/L (12-78); ALBUMIN 3.4 G/DL (3.4-5.0); ALBUMIN/GLOBULIN RATIO 0.8 (1.0-2.7); ALKALINE PHOSPHATASE 145 U/L (46-116); ANION GAP 14 mmol/L (5-15); ASPARTATE AMINO TRANSFERASE 26 U/L (15-37); BILIRUBIN,TOTAL 0.4 MG/DL (0.2-1.0); BLOOD UREA NITROGEN 144 mg/dL (7-18); CALCIUM 8.7 MG/DL (8.5-10.1); CARBON DIOXIDE 20 MMOL/L (21-32); CHLORIDE 101 MMOL/L (98-107); SODIUM 135 MMOL/L (136-145)
[2018-07-15 22:06] LABS: POTASSIUM 8.4 MMOL/L (3.5-5.1)
[2018-07-15] MEDS ORDERED: Calcium Gluconate 1gm/10ml vial IVP ONE (22:15)
[2018-07-15] MEDS ORDERED: Sodium Bicarbonate 50ml Carp IV ONE (22:15)
[2018-07-15] MEDS ORDERED: Albuterol ud Inhalation HHN ONE (22:15)
[2018-07-15] MEDS ORDERED: Insulin Human Regular 100units/ml 3ml IV ONE (22:15)
[2018-07-15] MEDS ORDERED: UNOBMED (22:27)
[2018-07-15] MEDS ORDERED: Sodium Polystyrene Sulfonate 15gm Powder ORAL ONE (23:00)
[2018-07-15] MEDS ORDERED: Sodium Polystyrene Sulfonate 15gm Powder ONE (23:03)
[2018-07-15 23:14] VITALS: BP 136/48
[2018-07-16] VITALS (16 sets, daily range): BP systolic 96–136; BP diastolic 32–57
[2018-07-16 04:40] LABS: HEMOGLOBIN 7.7 G/DL (14.2-18.0); MEAN CORPUSCULAR VOLUME 101 FL (80-99); PLATELET COUNT 84 K/UL (150-450); RED BLOOD COUNT 2.37 M/UL (4.70-6.10); RED CELL DISTRIBUTION WIDTH 15.9 % (11.6-14.8); WHITE BLOOD COUNT 3.8 K/UL (4.8-10.8)
[2018-07-16 05:19] LABS: ALANINE AMINOTRANSFERASE 37 U/L (12-78); ALBUMIN 3.1 G/DL (3.4-5.0); ALBUMIN/GLOBULIN RATIO 0.8 (1.0-2.7); ALKALINE PHOSPHATASE 133 U/L (46-116); ANION GAP 12 mmol/L (5-15); ASPARTATE AMINO TRANSFERASE 18 U/L (15-37); BILIRUBIN,TOTAL 0.4 MG/DL (0.2-1.0); BLOOD UREA NITROGEN 143 mg/dL (7-18); CALCIUM 8.1 MG/DL (8.5-10.1); CARBON DIOXIDE 22 MMOL/L (21-32); CHLORIDE 103 MMOL/L (98-107); CHOLESTEROL 105 MG/DL (< 200); CREATINE KINASE 156 U/L (26-308); CREATININE 14.6 MG/DL (0.55-1.30); FERRITIN 173 NG/ML (8-388); GAMMA GLUTAMYL TRANSPEPTIDASE 31 U/L (5-85); HDL CHOLESTEROL 41 MG/DL (40-60); PHOSPHORUS 11.4 MG/DL (2.5-4.9); SODIUM 138 MMOL/L (136-145); TRIGLYCERIDES 28 MG/DL (30-150)
[2018-07-16 05:20] LABS: POTASSIUM 7.5 MMOL/L (3.5-5.1)
[2018-07-16 05:28] LABS: IRON 32 ug/dL (50-175); TOTAL IRON BINDING CAPACITY 183 ug/dL (250-450)
[2018-07-16 06:03] LABS: % IRON SATURATION 17 % (15-50)
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
[2018-07-16] MEDS ORDERED: Morphine Sulfate 2mg/ml Inj IVP PRN ×2 (10:00→18:00)
[2018-07-16] MEDS ORDERED: Albuterol/Ipratropium 3ml neb HHN PRN ×2 (10:00→18:00)
[2018-07-16] MEDS ORDERED: Sodium Polystyrene Sulfonate 15gm Powder ORAL SCH (10:00)
[2018-07-16] MEDS ORDERED: Mylanta II UD 30ml ORAL PRN (10:00)
--- NOTE | 2018-07-16 10:01 | History and Physical ---
History of Present Illness General Date patient seen: Jul 16, 2018 Time patient seen: 10:00 Reason for Hospitalization: CHF, severe hyperkalemia Present Illness HPI 68y/o male with pmh of ESRD on HD, HTN, GERD, dementia who presents with chest pain and SOB. Pt poor historian. Per EMS a bystander called because he was saying that he had chest/back pain. Patient noted to have some shortness of breath. Unknown last dialysis. No reports of f/c, n/v, d/c, abd pain. In ED, pt with severe hyperkalemia to 8.4 and volume overload. Pt given calcium gluconate, insulin + D50, bicarb, albtuerol neb. Renal consulted for emergent dialysis. Pt admitted to ICU and underwent HD w/ 2.3L UF. K 3.6 this AM. PMH: ESRD on HD, HTN, GERD, dementia PSH: denies FMH: [place] SH: resides at [facility] Allergies: Coded Allergies: No Known Allergies (Verified , 11/24/07) UNABLE TO ASSESS (Unverified , 07/15/18) Medication History Scheduled Amlodipine Besylate (Norvasc), 5 MG ORAL BID, (Reported) Clonidine Hcl* (Catapres*), 0.1 MG ORAL EVERY 4 HOURS, (Reported) Labetalol Hcl* (Normodyne*), 100 MG ORAL EVERY 8 HOURS, (Reported) Lorazepam* (Lorazepam*), 2 MG ORAL EVERY 6 HOURS, (Reported) Pantoprazole* (Protonix*), 40 MG ORAL DAILY, (Reported) Polyethylene Glycol 3350* (Miralax*), 17 GM ORAL DAILY, (Reported) Quetiapine Fumarate* (Seroquel*), 100 MG ORAL Q8HR Sevelamer Carbonate* (Renvela*), 1,600 MG ORAL THREE TIMES A DAY, (Reported) Scheduled PRN Lorazepam* (Ativan*), 2 MG ORAL Q6H PRN Tramadol Hcl* (Ultram*), 50 MG ORAL Q6H PRN for For Pain, (Reported) Miscellaneous Medications Unable to Obtain Medications (Unable To Obtain Meds), (Reported) Patient History History Provided By: Patient, Medical Record, PMD Healthcare decision maker Resuscitation status Full Code Advanced Directive on File No Review of Systems Constitutional: Reports: no symptoms Eye: Reports: no symptoms ENT: Reports: no symptoms Respiratory: Reports: shortness of breath Cardiovascular: Reports: chest pain Gastrointestinal: Reports: no symptoms Genitourinary: Reports: no symptoms Musculoskeletal: Reports: no symptoms Skin: Reports: no symptoms Psychiatric: Reports: no symptoms Neurological: Reports: no symptoms Endocrine: Reports: no symptoms Hematologic/Lymphatic: Reports: no symptoms Physical Exam Physical Exam Narrative General: alert, cooperative, no distress, appears stated age Head: normocephalic, without obvious abnormality, atraumatic Eyes: conjunctivae/corneas clear. PERRL, EOM's intact Throat: lips, mucosa, and tongue normal. MMM Neck: supple, symmetrical, trachea midline, and no JVD Lungs: +crackles b/l Heart: regular rate and rhythm, S1, S2 normal, no murmur, click, rub or gallop Abdomen: soft, non-tender, non-distended, bowel sounds normal; no masses or organomegaly Extremities: extremities normal, atraumatic, no cyanosis or edema Pulses: 2+ and symmetric Skin: skin color, texture, turgor normal; no rashes or lesions Neurologic: grossly normal, no focal deficits Last 24 Hour Vital Signs Date Time Temp Pulse Resp B/P (MAP) Pulse Ox O2 Delivery O2 Flow Rate FiO2 07/16/18 09:51 Nasal Cannula 07/16/18 07:00 76 23 96/32 (53) 100 07/16/18 06:16 Nasal Cannula 2.0 07/16/18 06:00 67 14 120/56 (77) 99 07/16/18 05:47 97.0 61 22 122/41 90 Nasal Cannula 2.0 28 97.0 07/16/18 05:45 97.3 61 20 119/47 (71) 100 97.3 07/16/18 05:10 Nasal Cannula 07/16/18 03:21 97.0 61 22 122/41 90 Nasal Cannula 2.0 28 97.0 07/16/18 01:40 61 24 122/37 90 Room Air 07/15/18 23:14 69 23 136/48 100 Nasal Cannula 2.0 07/15/18 22:26 65 18 100 Nasal Cannula 2.0 28 07/15/18 22:16 65 25 Nasal Cannula 2.0 28 07/15/18 22:16 64 26 100 Nasal Cannula 2.0 28 07/15/18 22:16 36 07/15/18 19:58 62 17 142/53 100 Nasal Cannula 2.0 07/15/18 18:54 99.0 58 16 126/47 99 Room Air 99.0 Intake and Output 07/15/18 07/16/18 19:00 07:00 Output Total 0 ml Balance 0 ml Output Urine Total 0 ml Laboratory Tests Test 07/15/18 21:13 07/16/18 04:20 White Blood Count 4.8 K/UL (4.8-10.8) 3.8 K/UL (4.8-10.8) L Red Blood Count 2.65 M/UL (4.70-6.10) L 2.37 M/UL (4.70-6.10) L Hemoglobin 8.3 G/DL (14.2-18.0) L 7.7 G/DL (14.2-18.0) L Hematocrit 27.0 % (42.0-52.0) L 24.0 % (42.0-52.0) L Mean Corpuscular Volume 102 FL (80-99) H 101 FL (80-99) H Mean Corpuscular Hemoglobin 31.1 PG (27.0-31.0) H 32.3 PG (27.0-31.0) H Mean Corpuscular Hemoglobin Concent 30.6 G/DL (32.0-36.0) L 31.9 G/DL (32.0-36.0) L Red Cell Distribution Width 15.4 % (11.6-14.8) H 15.9 % (11.6-14.8) H Platelet Count 97 K/UL (150-450) L 84 K/UL (150-450) L Mean Platelet Volume 7.3 FL (6.5-10.1) 7.2 FL (6.5-10.1) Neutrophils (%) (Auto) 82.0 % (45.0-75.0) H % (45.0-75.0) Lymphocytes (%) (Auto) 9.6 % (20.0-45.0) L % (20.0-45.0) Monocytes (%) (Auto) 6.4 % (1.0-10.0) % (1.0-10.0) Eosinophils (%) (Auto) 1.1 % (0.0-3.0) % (0.0-3.0) Basophils (%) (Auto) 0.9 % (0.0-2.0) % (0.0-2.0) Prothrombin Time 12.0 SEC (9.30-11.50) H Prothromb Time International Ratio 1.1 (0.9-1.1) Activated Partial Thromboplast Time 33 SEC (23-33) Sodium Level 135 MMOL/L (136-145) L 138 MMOL/L (136-145) Potassium Level 8.4 MMOL/L (3.5-5.1) *H 7.5 MMOL/L (3.5-5.1) *H Chloride Level 101 MMOL/L (98-107) 103 MMOL/L (98-107) Carbon Dioxide Level 20 MMOL/L (21-32) L 22 MMOL/L (21-32) Anion Gap 14 mmol/L (5-15) 12 mmol/L (5-15) Blood Urea Nitrogen 144 mg/dL (7-18) H 143 mg/dL (7-18) H Creatinine 14.0 MG/DL (0.55-1.30) H 14.6 MG/DL (0.55-1.30) H Estimat Glomerular Filtration Rate 4.4 mL/min (>60) 4.1 mL/min (>60) Glucose Level 116 MG/DL (74-106) H 98 MG/DL (74-106) Calcium Level 8.7 MG/DL (8.5-10.1) 8.1 MG/DL (8.5-10.1) L Total Bilirubin 0.4 MG/DL (0.2-1.0) 0.4 MG/DL (0.2-1.0) Aspartate Amino Transf (AST/SGOT) 26 U/L (15-37) 18 U/L (15-37) Alanine Aminotransferase (ALT/SGPT) 42 U/L (12-78) 37 U/L (12-78) Alkaline Phosphatase 145 U/L (46-116) H 133 U/L (46-116) H Troponin I 0.011 ng/mL (0.000-0.056) 0.014 ng/mL (0.000-0.056) C-Reactive Protein, Quantitative 2.5 mg/dL (0.00-0.90) H Pro-B-Type Natriuretic Peptide 39139 pg/mL (0-125) H 14826 pg/mL (0-125) H Total Protein 7.6 G/DL (6.4-8.2) 6.9 G/DL (6.4-8.2) Albumin 3.4 G/DL (3.4-5.0) 3.1 G/DL (3.4-5.0) L Globulin 4.2 g/dL 3.8 g/dL Albumin/Globulin Ratio 0.8 (1.0-2.7) L 0.8 (1.0-2.7) L Lipase 462 U/L (73-393) H 431 U/L (73-393) H Neutrophils % (Manual) Pending Lymphocytes % (Manual) Pending Platelet Estimate Pending Platelet Morphology Pending Hemoglobin A1c 4.9 % (4.3-6.0) Uric Acid 8.3 MG/DL (2.6-7.2) H Phosphorus Level 11.4 MG/DL (2.5-4.9) H Magnesium Level 3.1 MG/DL (1.8-2.4) H Iron Level 32 ug/dL (50-175) L Total Iron Binding Capacity 183 ug/dL (250-450) L Percent Iron Saturation 17 % (15-50) Unsaturated Iron Binding 151 ug/dL (112-346) Ferritin 173 NG/ML (8-388) Gamma Glutamyl Transpeptidase 31 U/L (5-85) Total Creatine Kinase 156 U/L (26-308) Triglycerides Level 28 MG/DL (30-150) L Cholesterol Level 105 MG/DL (< 200) LDL Cholesterol 54 mg/dL (<100) HDL Cholesterol 41 MG/DL (40-60) Cholesterol/HDL Ratio 2.6 (3.3-4.4) L Vitamin B12 Level 613 PG/ML (193-986) Folate 15.9 NG/ML (8.6-58.9) Thyroid Stimulating Hormone (TSH) 2.007 uiU/mL (0.358-3.740) HIV (1&2) Antibody Rapid Pending Height (Feet): 5 Height (Inches): 8.00 Weight (Pounds): 178 Medications Current Medications Medications (Trade) Dose Ordered Sig/Praveen Route PRN Reason Start Time Stop Time Status Last Admin Dose Admin Acetaminophen (Tylenol) 650 mg Q4H PRN ORAL fever 07/16/18 10:00 08/15/18 09:59 Al Hydroxide/Mg Hydroxide (Mylanta II) 30 ml Q6H PRN ORAL dyspepsia 07/16/18 10:00 08/15/18 09:59 Albuterol/ Ipratropium (Albuterol/ Ipratropium) 3 ml Q6H PRN HHN dyspnea 07/16/18 10:00 07/21/18 09:59 Amlodipine Besylate (Norvasc) 5 mg BID ORAL 07/16/18 18:00 08/15/18 17:59 Calcium Gluconate (Calcium Gluconate 10%) 1 gm ONCE ONCE IVP 07/16/18 11:00 07/16/18 11:01 Clonidine HCl (Catapres Tab) 0.1 mg Q4H PRN ORAL for sbp more than 160 07/16/18 10:00 08/15/18 09:59 Dextrose (Dextrose 50%) 25 ml Q1H PRN IV Hypoglycemia 07/16/18 10:00 Dextrose (Dextrose 50%) 50 ml Q1H PRN IV hypoglycemia 07/16/18 10:00 Dextrose (Dextrose 50%) 100 ml STAT ONCE IV 07/16/18 11:00 07/16/18 11:01 Heparin Sodium (Porcine) (Heparin 5000 units/ml) 5,000 units EVERY 12 HOURS SUBQ 07/16/18 21:00 08/15/18 20:59 Insulin Human Regular (NovoLIN R) 10 units ONCE ONCE IV 07/16/18 11:00 07/16/18 11:01 Labetalol HCl (Normodyne) 100 mg EVERY 8 HOURS ORAL 07/16/18 14:00 08/15/18 13:59 Morphine Sulfate (Morphine Sulfate) 1 mg Q4H PRN IVP For Pain 07/16/18 10:00 07/23/18 09:59 Ondansetron HCl (Zofran) 4 mg Q6H PRN IVP Nausea & Vomiting 07/16/18 10:00 08/15/18 09:59 Polyethylene Glycol (Miralax) 17 gm HSPRN PRN ORAL Constipation 07/16/18 21:00 08/15/18 20:59 Quetiapine Fumarate (SEROquel) 100 mg Q8HR ORAL 07/16/18 14:00 08/15/18 13:59 Sevelamer Carbonate (Renvela) 1,600 mg THREE TIMES A DAY ORAL 07/16/18 13:00 08/15/18 12:59 Sodium Polystyrene Sulfonate (Kayexalate) 45 gm ONCE ORAL 07/16/18 10:00 07/16/18 10:01 Zolpidem Tartrate (Ambien) 5 mg HSPRN PRN ORAL Insomnia 07/16/18 21:00 07/23/18 20:59 Assessment/Plan Problem List: (1) Hyperkalemia ICD Codes: E87.5 - Hyperkalemia SNOMED: 31986571 (2) Acute on chronic diastolic (congestive) heart failure ICD Codes: I50.33 - Acute on chronic diastolic (congestive) heart failure SNOMED: 99469861, 314919068 (3) Acute metabolic encephalopathy ICD Codes: G93.41 - Metabolic encephalopathy SNOMED: 34037591, 365607079 (4) ESRD (end stage renal disease) on dialysis ICD Codes: N18.6 - End stage renal disease; Z99.2 - Dependence on renal dialysis SNOMED: 592673005 (5) HTN (hypertension) ICD Codes: I10 - Essential (primary) hypertension SNOMED: 97506574 (6) Hypertensive heart and renal disease ICD Codes: I13.10 - Hypertensive heart and chronic kidney disease without heart failure, with stage 1 through stage 4 chronic kidney disease, or unspecified chronic kidney disease SNOMED: 36896006 (7) Anemia in ESRD (end-stage renal disease) ICD Codes: N18.6 - End stage renal disease; D63.1 - Anemia in chronic kidney disease SNOMED: 12943440, 758493482 (8) Dementia with psychosis ICD Codes: F03.91 - Unspecified dementia with behavioral disturbance SNOMED: 46007713, 95336794 Status: stable Assessment/Plan # Severe hyperkalemia - K 8.4 on admit, now improved s/p HD # Metabolic acidosis # ESRD on HD - Cont ICU care. Pulm/critical care consulted for assistance - Renal consulted - cont HD per renal. Last HD early this AM w/ 2.3 L UF - Cont renvela # Acute on chronic diastolic heart failure - Cardiology consulted - Check TTE - HD for volume removal # Acute metabolic encephalopathy - likely in setting of metabolic derangements from renal dysfcn # Dementia with psychosis - Psych consulted - ctm # HTN # Hypertensive heart disease - Cont labetolol DVT Prophylaxis: SCD, HSQ Code Status: Full Hospital Classification Declaration: Based on this initial evaluation, and depending on the patient's clinical course, I anticipate that this patient will require hospitalization for [] days for 3-4 and close respiratory/hemodynamic monitoring. Disposition: Once the patient is stable to leave the hospital, I anticipate the patient will likely be discharged to the following environment: back to SNF I spent 72 minutes on this patient's case, and 40 minutes were dedicated to counseling and/or care coordination. Discussed with patient/family, nursing staff, SW/CM, renal, cardiology regarding clinical status, treatment course, and disposition planning. Time of note may not reflect time of encounter. Kamilla Padgett M.D. Jul 16, 2018 10:00
[2018-07-16 10:26] LABS: ANION GAP 7 mmol/L (5-15); BLOOD UREA NITROGEN 68 mg/dL (7-18); CALCIUM 7.9 MG/DL (8.5-10.1); CARBON DIOXIDE 33 MMOL/L (21-32); CHLORIDE 104 MMOL/L (98-107); CREATININE 7.5 MG/DL (0.55-1.30); POTASSIUM 3.6 MMOL/L (3.5-5.1); SODIUM 144 MMOL/L (136-145)
[2018-07-16 10:30] LABS: ALANINE AMINOTRANSFERASE 32 U/L (12-78); ALBUMIN 2.8 G/DL (3.4-5.0); ALBUMIN/GLOBULIN RATIO 0.8 (1.0-2.7); ALKALINE PHOSPHATASE 122 U/L (46-116); ASPARTATE AMINO TRANSFERASE 18 U/L (15-37); BILIRUBIN,TOTAL 0.5 MG/DL (0.2-1.0)
--- NOTE | 2018-07-16 10:39 | Diagnostic Imaging Report ---
Indication: Chest pain Comparison: 06/16/2018 A single view chest radiograph was obtained. Findings: There is a pleural-based density on the left side which may be chronic pleural thickening. This was seen previously. Pulmonary vascular congestion demonstrated with mild interstitial edema. Heart is enlarged. Right permacath again noted in good position. IMPRESSION: CHF. No significant change
[2018-07-16] MEDS ORDERED: Docusate 100mg cap ORAL SCH (11:00)
[2018-07-16] MEDS ORDERED: Insulin Human Regular 100units/ml 3ml IV ONE (11:00)
[2018-07-16] MEDS ORDERED: Calcium Gluconate 1gm/10ml vial IVP ONE (11:00)
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
--- NOTE | 2018-07-16 11:36 | Pulmonolgy Critical Care Note ---
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, 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 Discussed with: nurses, consultants, case planner, other - dr Ward is aked to see if pt is competent Critical Care - Objective Last 24 Hour Vital Signs Date Time Temp Pulse Resp B/P (MAP) Pulse Ox O2 Delivery O2 Flow Rate FiO2 07/16/18 09:51 Nasal Cannula 07/16/18 08:00 2.0 07/16/18 08:00 Nasal Cannula 2.0 07/16/18 08:00 76 07/16/18 07:00 76 23 96/32 (53) 100 07/16/18 06:16 Nasal Cannula 2.0 07/16/18 06:00 67 14 120/56 (77) 99 07/16/18 05:47 97.0 61 22 122/41 90 Nasal Cannula 2.0 28 97.0 07/16/18 05:45 97.3 61 20 119/47 (71) 100 97.3 07/16/18 05:10 Nasal Cannula 07/16/18 03:21 97.0 61 22 122/41 90 Nasal Cannula 2.0 28 97.0 07/16/18 01:40 61 24 122/37 90 Room Air 07/15/18 23:14 69 23 136/48 100 Nasal Cannula 2.0 07/15/18 22:26 65 18 100 Nasal Cannula 2.0 28 07/15/18 22:16 65 25 Nasal Cannula 2.0 28 07/15/18 22:16 64 26 100 Nasal Cannula 2.0 28 07/15/18 22:16 36 07/15/18 19:58 62 17 142/53 100 Nasal Cannula 2.0 07/15/18 18:54 99.0 58 16 126/47 99 Room Air 99.0 Status: obtunded Condition: critical HEENT: atraumatic Lungs: chest wall tender Heart: HR/BP unstable Abdomen: active bowel sounds Extremities: no C/C/E, edema Accucheck: 119 Critical Care - Subjective ROS Limited/Unobtainable: Yes Condition: critical FI02: 28 Sputum Amount: None I&O: Intake and Output 07/15/18 07/16/18 19:00 07:00 Output Total 0 ml Balance 0 ml Output Urine Total 0 ml Labs: Laboratory Tests Test 07/15/18 21:13 07/16/18 04:20 07/16/18 10:00 White Blood Count 4.8 K/UL (4.8-10.8) 3.8 K/UL (4.8-10.8) L Red Blood Count 2.65 M/UL (4.70-6.10) L 2.37 M/UL (4.70-6.10) L Hemoglobin 8.3 G/DL (14.2-18.0) L 7.7 G/DL (14.2-18.0) L Hematocrit 27.0 % (42.0-52.0) L 24.0 % (42.0-52.0) L Mean Corpuscular Volume 102 FL (80-99) H 101 FL (80-99) H Mean Corpuscular Hemoglobin 31.1 PG (27.0-31.0) H 32.3 PG (27.0-31.0) H Mean Corpuscular Hemoglobin Concent 30.6 G/DL (32.0-36.0) L 31.9 G/DL (32.0-36.0) L Red Cell Distribution Width 15.4 % (11.6-14.8) H 15.9 % (11.6-14.8) H Platelet Count 97 K/UL (150-450) L 84 K/UL (150-450) L Mean Platelet Volume 7.3 FL (6.5-10.1) 7.2 FL (6.5-10.1) Neutrophils (%) (Auto) 82.0 % (45.0-75.0) H % (45.0-75.0) Lymphocytes (%) (Auto) 9.6 % (20.0-45.0) L % (20.0-45.0) Monocytes (%) (Auto) 6.4 % (1.0-10.0) % (1.0-10.0) Eosinophils (%) (Auto) 1.1 % (0.0-3.0) % (0.0-3.0) Basophils (%) (Auto) 0.9 % (0.0-2.0) % (0.0-2.0) Prothrombin Time 12.0 SEC (9.30-11.50) H Prothromb Time International Ratio 1.1 (0.9-1.1) Activated Partial Thromboplast Time 33 SEC (23-33) Sodium Level 135 MMOL/L (136-145) L 138 MMOL/L (136-145) 144 MMOL/L (136-145) Potassium Level 8.4 MMOL/L (3.5-5.1) *H 7.5 MMOL/L (3.5-5.1) *H 3.6 MMOL/L (3.5-5.1) # Chloride Level 101 MMOL/L (98-107) 103 MMOL/L (98-107) 104 MMOL/L (98-107) Carbon Dioxide Level 20 MMOL/L (21-32) L 22 MMOL/L (21-32) 33 MMOL/L (21-32) H Anion Gap 14 mmol/L (5-15) 12 mmol/L (5-15) 7 mmol/L (5-15) Blood Urea Nitrogen 144 mg/dL (7-18) H 143 mg/dL (7-18) H 68 mg/dL (7-18) #H Creatinine 14.0 MG/DL (0.55-1.30) H 14.6 MG/DL (0.55-1.30) H 7.5 MG/DL (0.55-1.30) H Estimat Glomerular Filtration Rate 4.4 mL/min (>60) 4.1 mL/min (>60) 8.8 mL/min (>60) Glucose Level 116 MG/DL (74-106) H 98 MG/DL (74-106) 73 MG/DL (74-106) L Calcium Level 8.7 MG/DL (8.5-10.1) 8.1 MG/DL (8.5-10.1) L 7.9 MG/DL (8.5-10.1) L Total Bilirubin 0.4 MG/DL (0.2-1.0) 0.4 MG/DL (0.2-1.0) 0.5 MG/DL (0.2-1.0) Aspartate Amino Transf (AST/SGOT) 26 U/L (15-37) 18 U/L (15-37) 18 U/L (15-37) Alanine Aminotransferase (ALT/SGPT) 42 U/L (12-78) 37 U/L (12-78) 32 U/L (12-78) Alkaline Phosphatase 145 U/L (46-116) H 133 U/L (46-116) H 122 U/L (46-116) H Troponin I 0.011 ng/mL (0.000-0.056) 0.014 ng/mL (0.000-0.056) C-Reactive Protein, Quantitative 2.5 mg/dL (0.00-0.90) H 2.1 mg/dL (0.00-0.90) H Pro-B-Type Natriuretic Peptide 92547 pg/mL (0-125) H 91552 pg/mL (0-125) H Total Protein 7.6 G/DL (6.4-8.2) 6.9 G/DL (6.4-8.2) 6.3 G/DL (6.4-8.2) L Albumin 3.4 G/DL (3.4-5.0) 3.1 G/DL (3.4-5.0) L 2.8 G/DL (3.4-5.0) L Globulin 4.2 g/dL 3.8 g/dL 3.5 g/dL Albumin/Globulin Ratio 0.8 (1.0-2.7) L 0.8 (1.0-2.7) L 0.8 (1.0-2.7) L Lipase 462 U/L (73-393) H 431 U/L (73-393) H Differential Total Cells Counted 100 Neutrophils % (Manual) 65 % (45-75) Lymphocytes % (Manual) 24 % (20-45) Monocytes % (Manual) 10 % (1-10) Eosinophils % (Manual) 1 % (0-3) Basophils % (Manual) 0 % (0-2) Band Neutrophils 0 % (0-8) Platelet Estimate Decreased L Platelet Morphology Normal Hypochromasia Anisocytosis 1+ Macrocytosis 1+ Hemoglobin A1c 4.9 % (4.3-6.0) Uric Acid 8.3 MG/DL (2.6-7.2) H Phosphorus Level 11.4 MG/DL (2.5-4.9) H Magnesium Level 3.1 MG/DL (1.8-2.4) H Iron Level 32 ug/dL (50-175) L Total Iron Binding Capacity 183 ug/dL (250-450) L Percent Iron Saturation 17 % (15-50) Unsaturated Iron Binding 151 ug/dL (112-346) Ferritin 173 NG/ML (8-388) Gamma Glutamyl Transpeptidase 31 U/L (5-85) Total Creatine Kinase 156 U/L (26-308) Triglycerides Level 28 MG/DL (30-150) L Cholesterol Level 105 MG/DL (< 200) LDL Cholesterol 54 mg/dL (<100) HDL Cholesterol 41 MG/DL (40-60) Cholesterol/HDL Ratio 2.6 (3.3-4.4) L Vitamin B12 Level 613 PG/ML (193-986) Folate 15.9 NG/ML (8.6-58.9) Thyroid Stimulating Hormone (TSH) 2.007 uiU/mL (0.358-3.740) HIV (1&2) Antibody Rapid Negative (NEGATIVE) Hepatitis A IgM Antibody Pending Hepatitis B Surface Antigen Pending Hepatitis B Core IgM Antibody Pending Hepatitis C Antibody Pending Denise Rogers MD Jul 16, 2018 11:36
[2018-07-16] MEDS: Docusate 100mg cap ORAL SCH ×3 (12:50→18:19)
[2018-07-16] MEDS: Renvela 2400 mg pkt ORAL SCH ×3 (12:50→18:19)
[2018-07-16] MEDS ORDERED: Renvela 800mg Pkt ORAL SCH (13:00)
--- NOTE | 2018-07-16 13:54 | Consultation ---
History of Present Illness General Date patient seen: Jul 16, 2018 Chief Complaint: Back Pain-No Injury Present Illness HPI 68-year-old male, presenting with pain in the back. The pt was unable to provide the hx. the pt is not engaged and unable to provide the hx. the pt has been lethargic and unable to make decisions. Allergies: Coded Allergies: No Known Allergies (Verified , 11/24/07) UNABLE TO ASSESS (Unverified , 07/15/18) Medication History Scheduled Amlodipine Besylate (Norvasc), 5 MG ORAL BID, (Reported) Clonidine Hcl* (Catapres*), 0.1 MG ORAL EVERY 4 HOURS, (Reported) Labetalol Hcl* (Normodyne*), 100 MG ORAL EVERY 8 HOURS, (Reported) Lorazepam* (Lorazepam*), 2 MG ORAL EVERY 6 HOURS, (Reported) Pantoprazole* (Protonix*), 40 MG ORAL DAILY, (Reported) Polyethylene Glycol 3350* (Miralax*), 17 GM ORAL DAILY, (Reported) Quetiapine Fumarate* (Seroquel*), 100 MG ORAL Q8HR Sevelamer Carbonate* (Renvela*), 1,600 MG ORAL THREE TIMES A DAY, (Reported) Scheduled PRN Lorazepam* (Ativan*), 2 MG ORAL Q6H PRN Tramadol Hcl* (Ultram*), 50 MG ORAL Q6H PRN for For Pain, (Reported) Miscellaneous Medications Unable to Obtain Medications (Unable To Obtain Meds), (Reported) Patient History Limited by: medical condition History Provided By: Patient, Medical Record, PMD Healthcare decision maker Resuscitation status Full Code Advanced Directive on File No Past Medical/Surgical History Past Medical/Surgical History: (1) Constipation (2) Diabetes mellitus (3) Pleural effusion (4) Pyelonephritis, acute (5) Iron deficiency anemia (6) Pneumonia (7) GI bleed (8) UTI (lower urinary tract infection) (9) ACS (acute coronary syndrome) (10) History of hypertension (11) Hypertensive urgency (12) Noncompliance (13) CHF (congestive heart failure) (14) Encephalopathy (15) ESRD (end stage renal disease) on dialysis (16) Anemia in chronic kidney disease (CKD) (17) Hyperkalemia Review of Systems Psychiatric: Reports: prior hx, anxiety, depressed feelings, emotional problems Physical Exam General Appearance: no apparent distress, lethargic, confused Last 24 Hour Vital Signs Date Time Temp Pulse Resp B/P (MAP) Pulse Ox O2 Delivery O2 Flow Rate FiO2 07/16/18 13:00 92 21 136/45 (75) 99 07/16/18 12:00 Nasal Cannula 2.0 07/16/18 12:00 98.0 96 20 126/44 (71) 98 98.0 07/16/18 12:00 2.0 07/16/18 12:00 93 07/16/18 11:00 84 19 136/42 (73) 99 07/16/18 10:00 84 19 133/43 (73) 99 07/16/18 09:51 Nasal Cannula 07/16/18 09:00 79 20 109/34 (59) 99 07/16/18 08:00 2.0 07/16/18 08:00 97.8 81 29 114/40 (64) 100 97.8 07/16/18 08:00 Nasal Cannula 2.0 07/16/18 08:00 76 07/16/18 07:00 76 23 96/32 (53) 100 07/16/18 06:16 Nasal Cannula 2.0 07/16/18 06:00 67 14 120/56 (77) 99 07/16/18 05:47 97.0 61 22 122/41 90 Nasal Cannula 2.0 28 97.0 07/16/18 05:45 97.3 61 20 119/47 (71) 100 97.3 07/16/18 05:10 Nasal Cannula 07/16/18 03:21 97.0 61 22 122/41 90 Nasal Cannula 2.0 28 97.0 07/16/18 01:40 61 24 122/37 90 Room Air 07/15/18 23:14 69 23 136/48 100 Nasal Cannula 2.0 07/15/18 22:26 65 18 100 Nasal Cannula 2.0 28 07/15/18 22:16 65 25 Nasal Cannula 2.0 28 07/15/18 22:16 64 26 100 Nasal Cannula 2.0 28 07/15/18 22:16 36 07/15/18 19:58 62 17 142/53 100 Nasal Cannula 2.0 07/15/18 18:54 99.0 58 16 126/47 99 Room Air 99.0 Intake and Output 07/15/18 07/16/18 19:00 07:00 Output Total 0 ml Balance 0 ml Output Urine Total 0 ml Laboratory Tests Test 07/15/18 21:13 07/16/18 04:20 07/16/18 10:00 White Blood Count 4.8 K/UL (4.8-10.8) 3.8 K/UL (4.8-10.8) L Red Blood Count 2.65 M/UL (4.70-6.10) L 2.37 M/UL (4.70-6.10) L Hemoglobin 8.3 G/DL (14.2-18.0) L 7.7 G/DL (14.2-18.0) L Hematocrit 27.0 % (42.0-52.0) L 24.0 % (42.0-52.0) L Mean Corpuscular Volume 102 FL (80-99) H 101 FL (80-99) H Mean Corpuscular Hemoglobin 31.1 PG (27.0-31.0) H 32.3 PG (27.0-31.0) H Mean Corpuscular Hemoglobin Concent 30.6 G/DL (32.0-36.0) L 31.9 G/DL (32.0-36.0) L Red Cell Distribution Width 15.4 % (11.6-14.8) H 15.9 % (11.6-14.8) H Platelet Count 97 K/UL (150-450) L 84 K/UL (150-450) L Mean Platelet Volume 7.3 FL (6.5-10.1) 7.2 FL (6.5-10.1) Neutrophils (%) (Auto) 82.0 % (45.0-75.0) H % (45.0-75.0) Lymphocytes (%) (Auto) 9.6 % (20.0-45.0) L % (20.0-45.0) Monocytes (%) (Auto) 6.4 % (1.0-10.0) % (1.0-10.0) Eosinophils (%) (Auto) 1.1 % (0.0-3.0) % (0.0-3.0) Basophils (%) (Auto) 0.9 % (0.0-2.0) % (0.0-2.0) Prothrombin Time 12.0 SEC (9.30-11.50) H Prothromb Time International Ratio 1.1 (0.9-1.1) Activated Partial Thromboplast Time 33 SEC (23-33) Sodium Level 135 MMOL/L (136-145) L 138 MMOL/L (136-145) 144 MMOL/L (136-145) Potassium Level 8.4 MMOL/L (3.5-5.1) *H 7.5 MMOL/L (3.5-5.1) *H 3.6 MMOL/L (3.5-5.1) # Chloride Level 101 MMOL/L (98-107) 103 MMOL/L (98-107) 104 MMOL/L (98-107) Carbon Dioxide Level 20 MMOL/L (21-32) L 22 MMOL/L (21-32) 33 MMOL/L (21-32) H Anion Gap 14 mmol/L (5-15) 12 mmol/L (5-15) 7 mmol/L (5-15) Blood Urea Nitrogen 144 mg/dL (7-18) H 143 mg/dL (7-18) H 68 mg/dL (7-18) #H Creatinine 14.0 MG/DL (0.55-1.30) H 14.6 MG/DL (0.55-1.30) H 7.5 MG/DL (0.55-1.30) H Estimat Glomerular Filtration Rate 4.4 mL/min (>60) 4.1 mL/min (>60) 8.8 mL/min (>60) Glucose Level 116 MG/DL (74-106) H 98 MG/DL (74-106) 73 MG/DL (74-106) L Calcium Level 8.7 MG/DL (8.5-10.1) 8.1 MG/DL (8.5-10.1) L 7.9 MG/DL (8.5-10.1) L Total Bilirubin 0.4 MG/DL (0.2-1.0) 0.4 MG/DL (0.2-1.0) 0.5 MG/DL (0.2-1.0) Aspartate Amino Transf (AST/SGOT) 26 U/L (15-37) 18 U/L (15-37) 18 U/L (15-37) Alanine Aminotransferase (ALT/SGPT) 42 U/L (12-78) 37 U/L (12-78) 32 U/L (12-78) Alkaline Phosphatase 145 U/L (46-116) H 133 U/L (46-116) H 122 U/L (46-116) H Troponin I 0.011 ng/mL (0.000-0.056) 0.014 ng/mL (0.000-0.056) C-Reactive Protein, Quantitative 2.5 mg/dL (0.00-0.90) H 2.1 mg/dL (0.00-0.90) H Pro-B-Type Natriuretic Peptide 46527 pg/mL (0-125) H 89802 pg/mL (0-125) H Total Protein 7.6 G/DL (6.4-8.2) 6.9 G/DL (6.4-8.2) 6.3 G/DL (6.4-8.2) L Albumin 3.4 G/DL (3.4-5.0) 3.1 G/DL (3.4-5.0) L 2.8 G/DL (3.4-5.0) L Globulin 4.2 g/dL 3.8 g/dL 3.5 g/dL Albumin/Globulin Ratio 0.8 (1.0-2.7) L 0.8 (1.0-2.7) L 0.8 (1.0-2.7) L Lipase 462 U/L (73-393) H 431 U/L (73-393) H Differential Total Cells Counted 100 Neutrophils % (Manual) 65 % (45-75) Lymphocytes % (Manual) 24 % (20-45) Monocytes % (Manual) 10 % (1-10) Eosinophils % (Manual) 1 % (0-3) Basophils % (Manual) 0 % (0-2) Band Neutrophils 0 % (0-8) Platelet Estimate Decreased L Platelet Morphology Normal Hypochromasia Anisocytosis 1+ Macrocytosis 1+ Hemoglobin A1c 4.9 % (4.3-6.0) Uric Acid 8.3 MG/DL (2.6-7.2) H Phosphorus Level 11.4 MG/DL (2.5-4.9) H Magnesium Level 3.1 MG/DL (1.8-2.4) H Iron Level 32 ug/dL (50-175) L Total Iron Binding Capacity 183 ug/dL (250-450) L Percent Iron Saturation 17 % (15-50) Unsaturated Iron Binding 151 ug/dL (112-346) Ferritin 173 NG/ML (8-388) Gamma Glutamyl Transpeptidase 31 U/L (5-85) Total Creatine Kinase 156 U/L (26-308) Triglycerides Level 28 MG/DL (30-150) L Cholesterol Level 105 MG/DL (< 200) LDL Cholesterol 54 mg/dL (<100) HDL Cholesterol 41 MG/DL (40-60) Cholesterol/HDL Ratio 2.6 (3.3-4.4) L Vitamin B12 Level 613 PG/ML (193-986) Folate 15.9 NG/ML (8.6-58.9) Thyroid Stimulating Hormone (TSH) 2.007 uiU/mL (0.358-3.740) HIV (1&2) Antibody Rapid Negative (NEGATIVE) Hepatitis A IgM Antibody Pending Hepatitis B Surface Antigen Pending Hepatitis B Core IgM Antibody Pending Hepatitis C Antibody Pending Height (Feet): 5 Height (Inches): 8.00 Weight (Pounds): 210 Medications Current Medications Medications (Trade) Dose Ordered Sig/Praveen Route PRN Reason Start Time Stop Time Status Last Admin Dose Admin Acetaminophen (Tylenol) 650 mg Q4H PRN ORAL fever 07/16/18 10:00 08/15/18 09:59 Albuterol/ Ipratropium (Albuterol/ Ipratropium) 3 ml Q6H PRN HHN dyspnea 07/16/18 10:00 07/21/18 09:59 Clonidine HCl (Catapres Tab) 0.1 mg Q4H PRN ORAL for sbp more than 160 07/16/18 10:00 08/15/18 09:59 Dextrose (Dextrose 50%) 25 ml Q1H PRN IV Hypoglycemia 07/16/18 10:00 Dextrose (Dextrose 50%) 50 ml Q1H PRN IV hypoglycemia 07/16/18 10:00 Docusate Sodium (Colace) 100 mg TID ORAL 07/16/18 13:00 08/15/18 10:59 07/16/18 12:50 Epoetin Yao (Procrit (for ESRD on dialysis)) 10,000 units [id number] SUBQ 07/16/18 21:00 08/15/18 20:59 Iron Sucrose 100 mg/Sodium Chloride 55 ml @ 200 mls/hr BEDTIME IVPB 07/16/18 21:00 07/25/18 21:17 Labetalol HCl (Normodyne) 100 mg EVERY 8 HOURS ORAL 07/16/18 14:00 08/15/18 13:59 Morphine Sulfate (Morphine Sulfate) 1 mg Q4H PRN IVP For Pain 07/16/18 10:00 07/23/18 09:59 Ondansetron HCl (Zofran) 4 mg Q6H PRN IVP Nausea & Vomiting 07/16/18 10:00 08/15/18 09:59 Pantoprazole (Protonix) 40 mg DAILY ORAL 07/16/18 11:00 08/15/18 10:59 07/16/18 11:00 Polyethylene Glycol (Miralax) 17 gm HSPRN PRN ORAL Constipation 07/16/18 21:00 08/15/18 20:59 Quetiapine Fumarate (SEROquel) 100 mg Q8HR ORAL 07/16/18 14:00 08/15/18 13:59 Sevelamer Carbonate (Renvela) 2,400 mg THREE TIMES A DAY ORAL 07/16/18 13:00 08/15/18 12:59 07/16/18 12:50 Zolpidem Tartrate (Ambien) 5 mg HSPRN PRN ORAL Insomnia 07/16/18 21:00 07/23/18 20:59 Assessment/Plan Problem List: (1) Encephalopathy due to metabolic factor or toxin SNOMED: [id number] Assessment/Plan seroquel prn the pt lack capacity to make decisions. Tara Ward MD Jul 16, 2018 13:54
--- NOTE | 2018-07-16 14:00 | Diagnostic Imaging Report ---
Indication:Abdominal pain Technique: Grayscale and duplex Doppler imaging of the abdomen performed. Comparison: None Findings: Pancreas is grossly unremarkable as visualized. IVC is unremarkable. Main portal vein is patent. No definite liver nodularity identified. Liver size is within normal limits. Gallstone noted. The kidneys are echogenic. Bilateral renal cysts are noted. Aorta is not seen well. The spleen is prominent measuring about 13 cm. IMPRESSION: Medical renal disease. Multiple bilateral renal cysts Splenomegaly. Gallstone Aorta obscured by bowel gas.
--- NOTE | 2018-07-16 14:33 | Cardiology Report ---
APPROVED REPORT EXAM: Two-dimensional and M-mode echocardiogram with Doppler and color Doppler. INDICATION Congestive Heart Failure M-Mode DIMENSIONS IVSd1.3 (0.7-1.1cm)Left Atrium (MM)4.7 (1.6-4.0cm) LVDd5.4 (3.5-5.6cm)Aortic Root4.0 (2.0-3.7cm) PWd2.0 (0.7-1.1cm)Aortic Cusp Exc.1.9 (1.5-2.0cm) IVSs2.0 cm LVDs3.2 (2.5-4.0cm) PWs1.9 cm Normal left ventricular chamber size, systolic function and wall motion to the extent visualized. Left ventricular ejection fraction estimated to be 55-60 %. Mild left ventricular hypertrophy by 2-D. No evidence of pericardial effusion. Mild bi- atrial enlargement . Right ventricular cardiac chamber size are within normal limits. Heavy focal aortic valve sclerosis with adequate cusp excursion. Thickened mitral valve leaflets with normal excursion. Mitral annulus and heavily aortic root calcification. Pulmonic valve not well visualized. Normal tricuspid valve structure. IVC at size 2.0 cm without physiologic collapse. A color flow and spectral Doppler study was performed and revealed: No aortic regurgitation. Trace mitral regurgitation. Normal left ventricular diastolic function . Mild tricuspid regurgitation. Tricuspid systolic velocities suggests peak right ventricular systolic pressure of 42 mmHg,consistent with mild pulmonary hypertension . No Pulmonic regurgitation present.
--- NOTE | 2018-07-16 15:06 | Cardiology Report ---
APPROVED REPORT EKG Measurement Heart [id number] ME [id number] Sinus rhythm with 1st degree AV block Left bundle branch block Abnormal ECG
[2018-07-16 19:49] LABS: HEMATOCRIT 23.1 % (42.0-52.0); HEMOGLOBIN 7.4 G/DL (14.2-18.0); MEAN CORPUSCULAR VOLUME 98 FL (80-99); PLATELET COUNT 84 K/UL (150-450); RED BLOOD COUNT 2.36 M/UL (4.70-6.10); RED CELL DISTRIBUTION WIDTH 15.9 % (11.6-14.8); WHITE BLOOD COUNT 3.4 K/UL (4.8-10.8)
[2018-07-16 20:04] LABS: ALANINE AMINOTRANSFERASE 32 U/L (12-78); ALBUMIN 2.7 G/DL (3.4-5.0); ALBUMIN/GLOBULIN RATIO 0.8 (1.0-2.7); ALKALINE PHOSPHATASE 117 U/L (46-116); ANION GAP 9 mmol/L (5-15); ASPARTATE AMINO TRANSFERASE 18 U/L (15-37); BILIRUBIN,TOTAL 0.7 MG/DL (0.2-1.0); BLOOD UREA NITROGEN 81 mg/dL (7-18); CALCIUM 7.9 MG/DL (8.5-10.1); CARBON DIOXIDE 32 MMOL/L (21-32); CHLORIDE 103 MMOL/L (98-107); CREATININE 8.6 MG/DL (0.55-1.30); POTASSIUM 4.2 MMOL/L (3.5-5.1); SODIUM 144 MMOL/L (136-145)
[2018-07-16] MEDS: Epogen (for ESRD on dialysis) SUBQ SCH (20:18)
[2018-07-16] MEDS ORDERED: Miralax 17gm pkt ORAL PRN ×2 (21:00)
[2018-07-16] MEDS ORDERED: Heparin 5000 units/ml inj SUBQ SCH (21:00)
[2018-07-16] MEDS ORDERED: Zolpidem 5mg tab ORAL PRN ×2 (21:00)
[2018-07-16] MEDS ORDERED: Epogen (for ESRD on dialysis) SUBQ SCH (21:00)
[2018-07-16] MEDS ORDERED: Haloperidol 5mg/ml Inj IM SCH (21:45)
[2018-07-17] VITALS: BP 142/54
--- NOTE | 2018-07-17 01:01 | Consultation ---
History of Present Illness General Date patient seen: Jul 16, 2018 Time patient seen: 21:45 Chief Complaint: Back Pain-No Injury Present Illness HPI 68 year old male with CP/SOB, missed dialysis session. Hx of ESRD, DM, Diastolic CHF, HTN, COPD/Asthma. Troponin elevated in setting of CKD. Unknown last CV evaluation. Allergies: Coded Allergies: No Known Allergies (Verified , 11/24/07) UNABLE TO ASSESS (Unverified , 07/15/18) Medication History Scheduled Amlodipine Besylate (Norvasc), 5 MG ORAL BID, (Reported) Clonidine Hcl* (Catapres*), 0.1 MG ORAL EVERY 4 HOURS, (Reported) Labetalol Hcl* (Normodyne*), 100 MG ORAL EVERY 8 HOURS, (Reported) Lorazepam* (Lorazepam*), 2 MG ORAL EVERY 6 HOURS, (Reported) Pantoprazole* (Protonix*), 40 MG ORAL DAILY, (Reported) Polyethylene Glycol 3350* (Miralax*), 17 GM ORAL DAILY, (Reported) Quetiapine Fumarate* (Seroquel*), 100 MG ORAL Q8HR Sevelamer Carbonate* (Renvela*), 1,600 MG ORAL THREE TIMES A DAY, (Reported) Scheduled PRN Lorazepam* (Ativan*), 2 MG ORAL Q6H PRN Tramadol Hcl* (Ultram*), 50 MG ORAL Q6H PRN for For Pain, (Reported) Miscellaneous Medications Unable to Obtain Medications (Unable To Obtain Meds), (Reported) Patient History Healthcare decision maker Resuscitation status Full Code Advanced Directive on File No Review of Systems Constitutional: Reports: no symptoms Eye: Reports: no symptoms ENT: Reports: no symptoms Respiratory: Reports: no symptoms Cardiovascular: Reports: no symptoms Gastrointestinal: Reports: no symptoms Genitourinary: Reports: no symptoms Musculoskeletal: Reports: no symptoms Skin: Reports: no symptoms Psychiatric: Reports: no symptoms Neurological: Reports: no symptoms Endocrine: Reports: no symptoms Hematologic/Lymphatic: Reports: no symptoms Physical Exam General Appearance: no apparent distress, alert Lines, tubes and drains: peripheral HEENT: normocephalic, atraumatic Neck: non-tender, normal alignment Respiratory/Chest: chest wall non-tender, lungs clear Cardiovascular/Chest: normal peripheral pulses, normal rate Abdomen: normal bowel sounds Extremities: normal range of motion, non-tender Skin Exam: normal pigmentation Last 24 Hour Vital Signs Date Time Temp Pulse Resp B/P (MAP) Pulse Ox O2 Delivery O2 Flow Rate FiO2 07/17/18 00:00 Nasal Cannula 2.0 07/17/18 00:00 98.1 84 24 142/54 (83) 100 98.1 07/17/18 00:00 2.0 07/16/18 21:44 90 132/57 07/16/18 20:02 82 07/16/18 20:00 Nasal Cannula 2.0 07/16/18 20:00 97.9 90 20 132/57 (82) 100 97.9 07/16/18 20:00 2.0 07/16/18 17:00 89 24 128/39 (68) 100 07/16/18 16:00 2.0 07/16/18 16:00 99.5 93 19 119/41 (67) 98 99.5 07/16/18 16:00 Nasal Cannula 2.0 07/16/18 16:00 89 07/16/18 15:00 93 19 120/36 (64) 98 07/16/18 14:00 88 130/58 07/16/18 14:00 90 30 136/44 (74) 99 07/16/18 13:00 92 21 136/45 (75) 99 07/16/18 12:00 Nasal Cannula 2.0 07/16/18 12:00 98.0 96 20 126/44 (71) 98 98.0 07/16/18 12:00 2.0 07/16/18 12:00 93 07/16/18 11:00 84 19 136/42 (73) 99 07/16/18 10:00 84 19 133/43 (73) 99 07/16/18 09:51 Nasal Cannula 07/16/18 09:00 79 20 109/34 (59) 99 07/16/18 08:00 2.0 07/16/18 08:00 97.8 81 29 114/40 (64) 100 97.8 07/16/18 08:00 Nasal Cannula 2.0 07/16/18 08:00 76 07/16/18 07:00 76 23 96/32 (53) 100 07/16/18 06:16 Nasal Cannula 2.0 07/16/18 06:00 67 14 120/56 (77) 99 07/16/18 05:47 97.0 61 22 122/41 90 Nasal Cannula 2.0 28 97.0 07/16/18 05:45 97.3 61 20 119/47 (71) 100 97.3 07/16/18 05:10 Nasal Cannula 07/16/18 03:21 97.0 61 22 122/41 90 Nasal Cannula 2.0 28 97.0 07/16/18 01:40 61 24 122/37 90 Room Air Intake and Output 07/16/18 07/17/18 19:00 07:00 Intake Total 340 ml 50 ml Output Total 2300 ml Balance -1960 ml 50 ml Intake Oral 100 ml 50 ml Tube Feeding 240 ml Output Urine Total 0 ml Hemodialysis UF 2300 ml # Voids 1 1 # Bowel Movements 1 Laboratory Tests Test 07/16/18 04:20 07/16/18 10:00 07/16/18 19:30 White Blood Count 3.8 K/UL (4.8-10.8) L 3.4 K/UL (4.8-10.8) L Red Blood Count 2.37 M/UL (4.70-6.10) L 2.36 M/UL (4.70-6.10) L Hemoglobin 7.7 G/DL (14.2-18.0) L 7.4 G/DL (14.2-18.0) L Hematocrit 24.0 % (42.0-52.0) L 23.1 % (42.0-52.0) L Mean Corpuscular Volume 101 FL (80-99) H 98 FL (80-99) Mean Corpuscular Hemoglobin 32.3 PG (27.0-31.0) H 31.2 PG (27.0-31.0) H Mean Corpuscular Hemoglobin Concent 31.9 G/DL (32.0-36.0) L 31.9 G/DL (32.0-36.0) L Red Cell Distribution Width 15.9 % (11.6-14.8) H 15.9 % (11.6-14.8) H Platelet Count 84 K/UL (150-450) L 84 K/UL (150-450) L Mean Platelet Volume 7.2 FL (6.5-10.1) 7.7 FL (6.5-10.1) Neutrophils (%) (Auto) % (45.0-75.0) % (45.0-75.0) Lymphocytes (%) (Auto) % (20.0-45.0) % (20.0-45.0) Monocytes (%) (Auto) % (1.0-10.0) % (1.0-10.0) Eosinophils (%) (Auto) % (0.0-3.0) % (0.0-3.0) Basophils (%) (Auto) % (0.0-2.0) % (0.0-2.0) Differential Total Cells Counted 100 100 Neutrophils % (Manual) 65 % (45-75) 79 % (45-75) H Lymphocytes % (Manual) 24 % (20-45) 10 % (20-45) L Monocytes % (Manual) 10 % (1-10) 7 % (1-10) Eosinophils % (Manual) 1 % (0-3) 3 % (0-3) Basophils % (Manual) 0 % (0-2) 1 % (0-2) Band Neutrophils 0 % (0-8) 0 % (0-8) Platelet Estimate Decreased L Decreased L Platelet Morphology Normal Normal Hypochromasia 3+ Anisocytosis 1+ 1+ Macrocytosis 1+ Sodium Level 138 MMOL/L (136-145) 144 MMOL/L (136-145) 144 MMOL/L (136-145) Potassium Level 7.5 MMOL/L (3.5-5.1) *H 3.6 MMOL/L (3.5-5.1) # 4.2 MMOL/L (3.5-5.1) Chloride Level 103 MMOL/L (98-107) 104 MMOL/L (98-107) 103 MMOL/L (98-107) Carbon Dioxide Level 22 MMOL/L (21-32) 33 MMOL/L (21-32) H 32 MMOL/L (21-32) Anion Gap 12 mmol/L (5-15) 7 mmol/L (5-15) 9 mmol/L (5-15) Blood Urea Nitrogen 143 mg/dL (7-18) H 68 mg/dL (7-18) #H 81 mg/dL (7-18) H Creatinine 14.6 MG/DL (0.55-1.30) H 7.5 MG/DL (0.55-1.30) H 8.6 MG/DL (0.55-1.30) H Estimat Glomerular Filtration Rate 4.1 mL/min (>60) 8.8 mL/min (>60) 7.5 mL/min (>60) Glucose Level 98 MG/DL (74-106) 73 MG/DL (74-106) L 120 MG/DL (74-106) H Hemoglobin A1c 4.9 % (4.3-6.0) Uric Acid 8.3 MG/DL (2.6-7.2) H Calcium Level 8.1 MG/DL (8.5-10.1) L 7.9 MG/DL (8.5-10.1) L 7.9 MG/DL (8.5-10.1) L Phosphorus Level 11.4 MG/DL (2.5-4.9) H Magnesium Level 3.1 MG/DL (1.8-2.4) H Iron Level 32 ug/dL (50-175) L Total Iron Binding Capacity 183 ug/dL (250-450) L Percent Iron Saturation 17 % (15-50) Unsaturated Iron Binding 151 ug/dL (112-346) Ferritin 173 NG/ML (8-388) Total Bilirubin 0.4 MG/DL (0.2-1.0) 0.5 MG/DL (0.2-1.0) 0.7 MG/DL (0.2-1.0) Gamma Glutamyl Transpeptidase 31 U/L (5-85) Aspartate Amino Transf (AST/SGOT) 18 U/L (15-37) 18 U/L (15-37) 18 U/L (15-37) Alanine Aminotransferase (ALT/SGPT) 37 U/L (12-78) 32 U/L (12-78) 32 U/L (12-78) Alkaline Phosphatase 133 U/L (46-116) H 122 U/L (46-116) H 117 U/L (46-116) H Total Creatine Kinase 156 U/L (26-308) Troponin I 0.014 ng/mL (0.000-0.056) Pro-B-Type Natriuretic Peptide 42898 pg/mL (0-125) H Total Protein 6.9 G/DL (6.4-8.2) 6.3 G/DL (6.4-8.2) L 6.2 G/DL (6.4-8.2) L Albumin 3.1 G/DL (3.4-5.0) L 2.8 G/DL (3.4-5.0) L 2.7 G/DL (3.4-5.0) L Globulin 3.8 g/dL 3.5 g/dL 3.5 g/dL Albumin/Globulin Ratio 0.8 (1.0-2.7) L 0.8 (1.0-2.7) L 0.8 (1.0-2.7) L Triglycerides Level 28 MG/DL (30-150) L Cholesterol Level 105 MG/DL (< 200) LDL Cholesterol 54 mg/dL (<100) HDL Cholesterol 41 MG/DL (40-60) Cholesterol/HDL Ratio 2.6 (3.3-4.4) L Lipase 431 U/L (73-393) H Vitamin B12 Level 613 PG/ML (193-986) Folate 15.9 NG/ML (8.6-58.9) Thyroid Stimulating Hormone (TSH) 2.007 uiU/mL (0.358-3.740) HIV (1&2) Antibody Rapid Negative (NEGATIVE) C-Reactive Protein, Quantitative 2.1 mg/dL (0.00-0.90) H Hepatitis A IgM Antibody Pending Hepatitis B Surface Antigen Pending Hepatitis B Core IgM Antibody Pending Hepatitis C Antibody Pending Height (Feet): 5 Height (Inches): 8.00 Weight (Pounds): 210 Medications Current Medications Medications (Trade) Dose Ordered Sig/Praveen Route PRN Reason Start Time Stop Time Status Last Admin Dose Admin Acetaminophen (Tylenol) 650 mg Q4H PRN ORAL fever 07/16/18 18:00 08/15/18 17:59 Albuterol/ Ipratropium (Albuterol/ Ipratropium) 3 ml Q6H PRN HHN dyspnea 07/16/18 18:00 07/21/18 17:59 Clonidine HCl (Catapres Tab) 0.1 mg Q4H PRN ORAL for sbp more than 160 07/16/18 18:00 08/15/18 17:59 Dextrose (Dextrose 50%) 25 ml Q1H PRN IV Hypoglycemia 07/16/18 18:00 Dextrose (Dextrose 50%) 50 ml Q1H PRN IV hypoglycemia 07/16/18 18:00 Docusate Sodium (Colace) 100 mg TID ORAL 07/16/18 18:00 08/15/18 10:59 07/16/18 18:19 Epoetin Yao (Procrit (for ESRD on dialysis)) 10,000 units THU-THU-THU SUBQ 07/16/18 21:00 08/15/18 20:59 07/16/18 20:18 Famotidine (Pepcid) 20 mg DAILY ORAL 07/17/18 09:00 08/16/18 08:59 Iron Sucrose 100 mg/Sodium Chloride 55 ml @ 200 mls/hr BEDTIME IV 07/16/18 21:00 07/25/18 21:17 07/16/18 20:18 Labetalol HCl (Normodyne) 100 mg EVERY 8 HOURS ORAL 07/16/18 22:00 08/15/18 13:59 07/16/18 21:44 Morphine Sulfate (Morphine Sulfate) 1 mg Q4H PRN IVP For Pain 07/16/18 18:00 07/23/18 17:59 Ondansetron HCl (Zofran) 4 mg Q6H PRN IVP Nausea & Vomiting 07/16/18 18:00 08/15/18 17:59 Polyethylene Glycol (Miralax) 17 gm HSPRN PRN ORAL Constipation 07/16/18 21:00 08/15/18 20:59 Quetiapine Fumarate (SEROquel) 25 mg Q6H PRN ORAL For Anxiety 07/16/18 18:00 08/15/18 17:59 Quetiapine Fumarate (SEROquel) 100 mg Q8HR ORAL 07/16/18 22:00 08/15/18 13:59 07/16/18 21:44 Sevelamer Carbonate (Renvela) 2,400 mg THREE TIMES A DAY ORAL 07/16/18 18:00 08/15/18 12:59 07/16/18 18:19 Zolpidem Tartrate (Ambien) 5 mg HSPRN PRN ORAL Insomnia 07/16/18 21:00 07/23/18 20:59 Assessment/Plan Status: stable Assessment/Plan Assessment: 1) ESRD (end stage renal disease) on dialysis (2) Anemia in chronic kidney disease (CKD) (3) Hypertensive kidney disease (4) Encephalopathy (5) DM (6) Hyperlipemia Plan: Maintain hemodialysis Echocardiogram Stress text next week to evaluate chest pain given multiple cardiac risk factors Aspirin Statin Serial EKG/Troponin No indication for troponin at this time. Yimi Luevano MD Jul 17, 2018 01:01
[2018-07-17 04:00] VITALS: BP 140/58
[2018-07-17 05:41] LABS: HEMATOCRIT 21.8 % (42.0-52.0); MEAN CORPUSCULAR VOLUME 99 FL (80-99); PLATELET COUNT 79 K/UL (150-450); RED CELL DISTRIBUTION WIDTH 16.4 % (11.6-14.8); WHITE BLOOD COUNT 3.6 K/UL (4.8-10.8)
[2018-07-17 06:31] LABS: ALANINE AMINOTRANSFERASE 30 U/L (12-78); ALBUMIN 2.9 G/DL (3.4-5.0); ALBUMIN/GLOBULIN RATIO 0.8 (1.0-2.7); ALKALINE PHOSPHATASE 115 U/L (46-116); ANION GAP 12 mmol/L (5-15); ASPARTATE AMINO TRANSFERASE 18 U/L (15-37); BILIRUBIN,TOTAL 0.6 MG/DL (0.2-1.0); BLOOD UREA NITROGEN 92 mg/dL (7-18); CALCIUM 8.9 MG/DL (8.5-10.1); CARBON DIOXIDE 32 MMOL/L (21-32); CHLORIDE 103 MMOL/L (98-107); CREATININE 9.3 MG/DL (0.55-1.30); POTASSIUM 3.7 MMOL/L (3.5-5.1); SODIUM 146 MMOL/L (136-145)
[2018-07-17 06:55] LABS: CREATINE KINASE 178 U/L (26-308); GAMMA GLUTAMYL TRANSPEPTIDASE 23 U/L (5-85)
[2018-07-17 07:28] LABS: AMMONIA 74 umol/L (11-32)
[2018-07-17 08:00] VITALS: BP 134/60
--- NOTE | 2018-07-17 09:30 | Nephrology Progress Note ---
Assessment/Plan Problem List: (1) ESRD (end stage renal disease) on dialysis (2) Hyperkalemia (3) CHF (congestive heart failure) (4) Anemia in chronic kidney disease (CKD) Assessment ESRD has permacath hyperkalemia Shortness of breath, CHF Encephalopathy condition: 1) ESRD (end stage renal disease) on dialysis (2) Anemia in chronic kidney disease (CKD) (3) Hypertensive kidney disease (4) Encephalopathy (5) DM (6) Hyperlipemia Plan Dialysed this am Continue dialysis as needed optimize cardiac status 2 D echo adjust BP meds Anemia work up : ? transfusion if needed adjust BS meds phos binders st eval per orders Subjective ROS Limited/Unobtainable: No Constitutional: Reports: malaise, other - more responsive Objective Objective Last 24 Hour Vital Signs Date Time Temp Pulse Resp B/P (MAP) Pulse Ox O2 Delivery O2 Flow Rate FiO2 07/17/18 09:00 Nasal Cannula 2.0 07/17/18 08:30 83 20 Nasal Cannula 2.0 28 07/17/18 08:00 98.2 90 20 134/60 (84) 92 98.2 07/17/18 08:00 79 07/17/18 04:00 97.9 84 21 140/58 (85) 94 97.9 07/17/18 04:00 Nasal Cannula 2.0 07/17/18 04:00 80 07/17/18 04:00 2.0 07/17/18 00:00 80 07/17/18 00:00 Nasal Cannula 2.0 07/17/18 00:00 98.1 84 24 142/54 (83) 100 98.1 07/17/18 00:00 2.0 07/16/18 21:44 90 132/57 07/16/18 20:02 82 07/16/18 20:00 Nasal Cannula 2.0 07/16/18 20:00 97.9 90 20 132/57 (82) 100 97.9 07/16/18 20:00 2.0 07/16/18 17:00 89 24 128/39 (68) 100 07/16/18 16:00 2.0 07/16/18 16:00 99.5 93 19 119/41 (67) 98 99.5 07/16/18 16:00 Nasal Cannula 2.0 07/16/18 16:00 89 9/21/18 15:00 93 19 120/36 (64) 98 07/16/18 14:00 88 130/58 07/16/18 14:00 90 30 136/44 (74) 99 07/16/18 13:00 92 21 136/45 (75) 99 07/16/18 12:00 Nasal Cannula 2.0 07/16/18 12:00 98.0 96 20 126/44 (71) 98 98.0 07/16/18 12:00 2.0 07/16/18 12:00 93 07/16/18 11:00 84 19 136/42 (73) 99 07/16/18 10:00 84 19 133/43 (73) 99 07/16/18 09:51 Nasal Cannula Intake and Output 07/16/18 07/17/18 19:00 07:00 Intake Total 340 ml 50 ml Output Total 2300 ml Balance -1960 ml 50 ml Intake Oral 100 ml 50 ml Tube Feeding 240 ml Output Urine Total 0 ml Hemodialysis UF 2300 ml # Voids 1 1 # Bowel Movements 1 Laboratory Tests 07/16/18 10:00: Sodium Level 144, Potassium Level 3.6#, Chloride Level 104, Carbon Dioxide Level 33H, Anion Gap 7, Blood Urea Nitrogen 68#H, Creatinine 7.5H, Estimat Glomerular Filtration Rate 8.8, Glucose Level 73L, Calcium Level 7.9L, Total Bilirubin 0.5, Aspartate Amino Transf (AST/SGOT) 18, Alanine Aminotransferase ( ALT/SGPT) 32, Alkaline Phosphatase 122H, C-Reactive Protein, Quantitative 2.1H, Total Protein 6.3L, Albumin 2.8L, Globulin 3.5, Albumin/Globulin Ratio 0.8L, Hepatitis A IgM Antibody Negative, Hepatitis B Surface Antigen Negative, Hepatitis B Core IgM Antibody Negative, Hepatitis C Antibody <0.1 07/16/18 19:30: Sodium Level 144, Potassium Level 4.2, Chloride Level 103, Carbon Dioxide Level 32, Anion Gap 9, Blood Urea Nitrogen 81H, Creatinine 8.6H, Estimat Glomerular Filtration Rate 7.5, Glucose Level 120H, Calcium Level 7.9L, Total Bilirubin 0.7 , Aspartate Amino Transf (AST/SGOT) 18, Alanine Aminotransferase (ALT/SGPT) 32, Alkaline Phosphatase 117H, Total Protein 6.2L, Albumin 2.7L, Globulin 3.5, Albumin/Globulin Ratio 0.8L, White Blood Count 3.4L, Red Blood Count 2.36L, Hemoglobin 7.4L, Hematocrit 23.1L, Mean Corpuscular Volume 98, Mean Corpuscular Hemoglobin 31.2H, Mean Corpuscular Hemoglobin Concent 31.9L, Red Cell Distribution Width 15.9H, Platelet Count 84L, Mean Platelet Volume 7.7, Neutrophils (%) (Auto) , Lymphocytes (%) (Auto) , Monocytes (%) (Auto) , Eosinophils (%) (Auto) , Basophils (%) (Auto) , Differential Total Cells Counted 100, Neutrophils % (Manual) 79H, Lymphocytes % (Manual) 10L, Monocytes % (Manual) 7, Eosinophils % (Manual) 3, Basophils % (Manual) 1, Band Neutrophils 0, Platelet Estimate DecreasedL, Platelet Morphology Normal, Hypochromasia 3+, Anisocytosis 1+ 07/17/18 05:10: Sodium Level 146H, Potassium Level 3.7, Chloride Level 103, Carbon Dioxide Level 32, Anion Gap 12, Blood Urea Nitrogen 92H, Creatinine 9.3H, Estimat Glomerular Filtration Rate 6.9, Glucose Level 83, Calcium Level 8.9, Total Bilirubin 0.6, Aspartate Amino Transf (AST/SGOT) 18, Alanine Aminotransferase ( ALT/SGPT) 30, Alkaline Phosphatase 115, C-Reactive Protein, Quantitative 2.9H, Total Protein 6.5, Albumin 2.9L, Globulin 3.6, Albumin/Globulin Ratio 0.8L, White Blood Count 3.6L, Red Blood Count 2.20L, Hemoglobin 7.0L, Hematocrit 21.8L , Mean Corpuscular Volume 99, Mean Corpuscular Hemoglobin 31.9H, Mean Corpuscular Hemoglobin Concent 32.2, Red Cell Distribution Width 16.4H, Platelet Count 79L, Mean Platelet Volume 7.7, Neutrophils (%) (Auto) , Lymphocytes (%) (Auto) , Monocytes (%) (Auto) , Eosinophils (%) (Auto) , Basophils (%) (Auto) , Neutrophils % (Manual) [Pending], Lymphocytes % (Manual) [Pending], Platelet Estimate [Pending], Platelet Morphology [Pending], Erythrocyte Sedimentation Rate 47H, Hemoglobin A1c 5.3, Uric Acid 5.5, Phosphorus Level 8.0H, Magnesium Level 2.3, Gamma Glutamyl Transpeptidase 23, Ammonia 74H, Total Creatine Kinase 178, Troponin I 0.164H, Pro-B-Type Natriuretic Peptide 31053V, Lipase 317, Thyroid Stimulating Hormone (TSH) 1.543 Height (Feet): 5 Height (Inches): 8.00 Weight (Pounds): 214 General Appearance: no apparent distress, lethargic Cardiovascular: tachycardia Respiratory/Chest: decreased breath sounds Abdomen: soft Objective no change Mirza Conde MD Jul 17, 2018 09:30
--- NOTE | 2018-07-17 09:50 | General Progress Note ---
Assessment/Plan Problem List: (1) Hyperkalemia ICD Codes: E87.5 - Hyperkalemia SNOMED: 06898758 (2) Acute on chronic diastolic (congestive) heart failure ICD Codes: I50.33 - Acute on chronic diastolic (congestive) heart failure SNOMED: 63663244, 113463019 (3) Acute metabolic encephalopathy ICD Codes: G93.41 - Metabolic encephalopathy SNOMED: 49721695, 273735461 (4) ESRD (end stage renal disease) on dialysis ICD Codes: N18.6 - End stage renal disease; Z99.2 - Dependence on renal dialysis SNOMED: 586235047 (5) HTN (hypertension) ICD Codes: I10 - Essential (primary) hypertension SNOMED: 63192989 (6) Hypertensive heart and renal disease ICD Codes: I13.10 - Hypertensive heart and chronic kidney disease without heart failure, with stage 1 through stage 4 chronic kidney disease, or unspecified chronic kidney disease SNOMED: 84825765 (7) Anemia in ESRD (end-stage renal disease) ICD Codes: N18.6 - End stage renal disease; D63.1 - Anemia in chronic kidney disease SNOMED: 62396578, 743621570 (8) Dementia with psychosis ICD Codes: F03.91 - Unspecified dementia with behavioral disturbance SNOMED: 14027577, 98661039 (9) Pancytopenia ICD Codes: D61.818 - Other pancytopenia SNOMED: 997234127 Status: stable Assessment/Plan # Severe hyperkalemia - K 8.4 on admit, now improved s/p HD # Metabolic acidosis # ESRD on HD - Transferred out of ICU on 07/17/18 - Pulm/critical care consulted - Renal consulted - cont HD per renal. Last HD yesterday - Cont renvela, nephrovite # Acute on chronic diastolic heart failure - Cardiology consulted - Check TTE --> EF wnl - HD for volume removal # NSTEMI type 2 - likely demand ischemia in setting of volume overload - Cardiology consulted - Trend trop/EKG - TTE reviewed and showed normal EF # Acute metabolic encephalopathy - likely in setting of metabolic derangements from renal dysfcn # Dementia with psychosis - Psych consulted - ctm # HTN # Hypertensive heart and renal disease - Cont labetolol # Pancytopenia # Anemia in ESRD # Thrombocytopenia # Leukopenia - Heme/onc consulted - EPO per renal - IV venofer - Transfuse 1U pRBC today for hgb 7 - ctm CBC DVT Prophylaxis: SCD, HSQ Code Status: Full Hospital Classification Declaration: Based on this initial evaluation, and depending on the patient's clinical course, I anticipate that this patient will require hospitalization for 2-3 days for volume overload, severe hyperK and close respiratory/hemodynamic monitoring. Disposition: Once the patient is stable to leave the hospital, I anticipate the patient will likely be discharged to the following environment: back to SNF I spent 42 minutes on this patient's case, and 22 minutes were dedicated to counseling and/or care coordination. Discussed with patient/family, nursing staff, SW/CM, renal, cardiology regarding clinical status, treatment course, and disposition planning. Time of note may not reflect time of encounter. Subjective Date patient seen: Jul 17, 2018 Time patient seen: 09:50 ROS Limited/Unobtainable: Yes Allergies: Coded Allergies: No Known Allergies (Verified , 11/24/07) UNABLE TO ASSESS (Unverified , 07/15/18) Subjective No acute o/n events s/p HD yesterday w/ improvement in K Transferred out of ICU Agitated and fell out of bed, noted to lying down on side on floor, no reported head trauma Currently somnolent but arousable Objective Last 24 Hour Vital Signs Date Time Temp Pulse Resp B/P (MAP) Pulse Ox O2 Delivery O2 Flow Rate FiO2 07/17/18 09:00 Nasal Cannula 2.0 07/17/18 08:30 83 20 Nasal Cannula 2.0 28 07/17/18 08:00 98.2 90 20 134/60 (84) 92 98.2 07/17/18 08:00 79 07/17/18 04:00 97.9 84 21 140/58 (85) 94 97.9 07/17/18 04:00 Nasal Cannula 2.0 07/17/18 04:00 80 07/17/18 04:00 2.0 07/17/18 00:00 80 07/17/18 00:00 Nasal Cannula 2.0 07/17/18 00:00 98.1 84 24 142/54 (83) 100 98.1 07/17/18 00:00 2.0 07/16/18 21:44 90 132/57 07/16/18 20:02 82 07/16/18 20:00 Nasal Cannula 2.0 07/16/18 20:00 97.9 90 20 132/57 (82) 100 97.9 07/16/18 20:00 2.0 07/16/18 17:00 89 24 128/39 (68) 100 07/16/18 16:00 2.0 07/16/18 16:00 99.5 93 19 119/41 (67) 98 99.5 07/16/18 16:00 Nasal Cannula 2.0 07/16/18 16:00 89 07/16/18 15:00 93 19 120/36 (64) 98 07/16/18 14:00 88 130/58 07/16/18 14:00 90 30 136/44 (74) 99 07/16/18 13:00 92 21 136/45 (75) 99 07/16/18 12:00 Nasal Cannula 2.0 07/16/18 12:00 98.0 96 20 126/44 (71) 98 98.0 07/16/18 12:00 2.0 07/16/18 12:00 93 07/16/18 11:00 84 19 136/42 (73) 99 07/16/18 10:00 84 19 133/43 (73) 99 07/16/18 09:51 Nasal Cannula Intake and Output 07/16/18 07/17/18 19:00 07:00 Intake Total 340 ml 50 ml Output Total 2300 ml Balance -1960 ml 50 ml Intake Oral 100 ml 50 ml Tube Feeding 240 ml Output Urine Total 0 ml Hemodialysis UF 2300 ml # Voids 1 1 # Bowel Movements 1 Laboratory Tests 07/16/18 10:00: Sodium Level 144, Potassium Level 3.6#, Chloride Level 104, Carbon Dioxide Level 33H, Anion Gap 7, Blood Urea Nitrogen 68#H, Creatinine 7.5H, Estimat Glomerular Filtration Rate 8.8, Glucose Level 73L, Calcium Level 7.9L, Total Bilirubin 0.5, Aspartate Amino Transf (AST/SGOT) 18, Alanine Aminotransferase ( ALT/SGPT) 32, Alkaline Phosphatase 122H, C-Reactive Protein, Quantitative 2.1H, Total Protein 6.3L, Albumin 2.8L, Globulin 3.5, Albumin/Globulin Ratio 0.8L, Hepatitis A IgM Antibody Negative, Hepatitis B Surface Antigen Negative, Hepatitis B Core IgM Antibody Negative, Hepatitis C Antibody <0.1 07/16/18 19:30: Sodium Level 144, Potassium Level 4.2, Chloride Level 103, Carbon Dioxide Level 32, Anion Gap 9, Blood Urea Nitrogen 81H, Creatinine 8.6H, Estimat Glomerular Filtration Rate 7.5, Glucose Level 120H, Calcium Level 7.9L, Total Bilirubin 0.7 , Aspartate Amino Transf (AST/SGOT) 18, Alanine Aminotransferase (ALT/SGPT) 32, Alkaline Phosphatase 117H, Total Protein 6.2L, Albumin 2.7L, Globulin 3.5, Albumin/Globulin Ratio 0.8L, White Blood Count 3.4L, Red Blood Count 2.36L, Hemoglobin 7.4L, Hematocrit 23.1L, Mean Corpuscular Volume 98, Mean Corpuscular Hemoglobin 31.2H, Mean Corpuscular Hemoglobin Concent 31.9L, Red Cell Distribution Width 15.9H, Platelet Count 84L, Mean Platelet Volume 7.7, Neutrophils (%) (Auto) , Lymphocytes (%) (Auto) , Monocytes (%) (Auto) , Eosinophils (%) (Auto) , Basophils (%) (Auto) , Differential Total Cells Counted 100, Neutrophils % (Manual) 79H, Lymphocytes % (Manual) 10L, Monocytes % (Manual) 7, Eosinophils % (Manual) 3, Basophils % (Manual) 1, Band Neutrophils 0, Platelet Estimate DecreasedL, Platelet Morphology Normal, Hypochromasia 3+, Anisocytosis 1+ 07/17/18 05:10: Sodium Level 146H, Potassium Level 3.7, Chloride Level 103, Carbon Dioxide Level 32, Anion Gap 12, Blood Urea Nitrogen 92H, Creatinine 9.3H, Estimat Glomerular Filtration Rate 6.9, Glucose Level 83, Calcium Level 8.9, Total Bilirubin 0.6, Aspartate Amino Transf (AST/SGOT) 18, Alanine Aminotransferase ( ALT/SGPT) 30, Alkaline Phosphatase 115, C-Reactive Protein, Quantitative 2.9H, Total Protein 6.5, Albumin 2.9L, Globulin 3.6, Albumin/Globulin Ratio 0.8L, White Blood Count 3.6L, Red Blood Count 2.20L, Hemoglobin 7.0L, Hematocrit 21.8L , Mean Corpuscular Volume 99, Mean Corpuscular Hemoglobin 31.9H, Mean Corpuscular Hemoglobin Concent 32.2, Red Cell Distribution Width 16.4H, Platelet Count 79L, Mean Platelet Volume 7.7, Neutrophils (%) (Auto) , Lymphocytes (%) (Auto) , Monocytes (%) (Auto) , Eosinophils (%) (Auto) , Basophils (%) (Auto) , Neutrophils % (Manual) [Pending], Lymphocytes % (Manual) [Pending], Platelet Estimate [Pending], Platelet Morphology [Pending], Erythrocyte Sedimentation Rate 47H, Hemoglobin A1c 5.3, Uric Acid 5.5, Phosphorus Level 8.0H, Magnesium Level 2.3, Gamma Glutamyl Transpeptidase 23, Ammonia 74H, Total Creatine Kinase 178, Troponin I 0.164H, Pro-B-Type Natriuretic Peptide 13548M, Lipase 317, Thyroid Stimulating Hormone (TSH) 1.543 Height (Feet): 5 Height (Inches): 8.00 Weight (Pounds): 214 Objective General: alert, cooperative, no distress, appears stated age Head: normocephalic, without obvious abnormality, atraumatic Eyes: conjunctivae/corneas clear. PERRL, EOM's intact Throat: lips, mucosa, and tongue normal. MMM Neck: supple, symmetrical, trachea midline, and no JVD Lungs: clear to auscultation bilaterally Heart: regular rate and rhythm, S1, S2 normal, no murmur, click, rub or gallop Abdomen: soft, non-tender, non-distended, bowel sounds normal; no masses or organomegaly Extremities: extremities normal, atraumatic, no cyanosis or edema Pulses: 2+ and symmetric Skin: skin color, texture, turgor normal; no rashes or lesions Neurologic: grossly normal, no focal deficits Kamilla Padgett M.D. Jul 17, 2018 09:50
[2018-07-17] MEDS: Renvela 2400 mg pkt ORAL SCH ×4 (09:55→16:35)
[2018-07-17] MEDS: Docusate 100mg cap ORAL SCH ×4 (09:55→16:36)
[2018-07-17 12:00] VITALS: BP 145/61
--- NOTE | 2018-07-17 13:03 | Pulmonology Progress Note ---
Assessment/Plan Assessment/Plan ASSESSMENT acute on chronic diastolic heart failure acute metabolic encephalopathy end-stage renal disease, on hemodialysis hypertensive heart disease elevated troponin COPD/asthma pulmonary hypertension anemia of chronic kidney disease dementia pancytopenia PLAN OF CARE telemetry floor ECHO with pEF 55-60% and RVSP of 43, c/w mild pulm HTN likely due to underlying COPD BP management with CCB and BB cardio follows mil elevation in troponin, no chest pain further management as per cardio recs O2 to keep pulse ox > 92%, pulm toilet prn CXR with CHF , no evidence of pneumonia on exam no bronchospasm, no resp distress off Heparin due to low PLT get Venous Duplex BLE , if negative will start SCD HD as per slubber tender; monitor volumes and cardiorenal parameters. monitor H&H , transfuse today heme follows on EPO HIV and hepatitis screen negative, monitor counts GI prophylaxis bowel regimen pain management prn psych follows pt lacks capacity to make decision, Seroquel prn as per psych supportive care case discussed and evaluated by supervising physician Subjective Allergies: Coded Allergies: No Known Allergies (Verified , 11/24/07) UNABLE TO ASSESS (Unverified , 07/15/18) Subjective transferred to tele no chest pain on O2 via NC, pulse ox stable no signs of resp distress low HH 7.0/21.8 mild elevation in troponin, no ischemic changes on ECG/tele Objective Last 24 Hour Vital Signs Date Time Temp Pulse Resp B/P (MAP) Pulse Ox O2 Delivery O2 Flow Rate FiO2 07/17/18 12:00 98.1 85 20 145/61 (89) 96 98.1 07/17/18 12:00 88 07/17/18 09:00 Nasal Cannula 2.0 07/17/18 08:30 83 20 Nasal Cannula 2.0 28 07/17/18 08:00 98.2 90 20 134/60 (84) 92 98.2 07/17/18 08:00 79 07/17/18 04:00 97.9 84 21 140/58 (85) 94 97.9 07/17/18 04:00 Nasal Cannula 2.0 07/17/18 04:00 80 07/17/18 04:00 2.0 07/17/18 00:00 80 07/17/18 00:00 Nasal Cannula 2.0 07/17/18 00:00 98.1 84 24 142/54 (83) 100 98.1 07/17/18 00:00 2.0 07/16/18 21:44 90 132/57 07/16/18 20:02 82 07/16/18 20:00 Nasal Cannula 2.0 07/16/18 20:00 97.9 90 20 132/57 (82) 100 97.9 07/16/18 20:00 2.0 07/16/18 17:00 89 24 128/39 (68) 100 07/16/18 16:00 2.0 07/16/18 16:00 99.5 93 19 119/41 (67) 98 99.5 07/16/18 16:00 Nasal Cannula 2.0 07/16/18 16:00 89 07/16/18 15:00 93 19 120/36 (64) 98 07/16/18 14:00 88 130/58 07/16/18 14:00 90 30 136/44 (74) 99 07/16/18 13:00 92 21 136/45 (75) 99 Intake and Output 07/16/18 07/17/18 19:00 07:00 Intake Total 340 ml 50 ml Output Total 2300 ml Balance -1960 ml 50 ml Intake Oral 100 ml 50 ml Tube Feeding 240 ml Output Urine Total 0 ml Hemodialysis UF 2300 ml # Voids 1 1 # Bowel Movements 1 General Appearance: no acute distress HEENT: normocephalic, atraumatic, anicteric Respiratory/Chest: lungs clear - with moderate air exchange Cardiovascular: normal rate - SR with LBBB, regular rhythm Abdomen: normal bowel sounds, soft, non tender - obese Extremities: no cyanosis, pedal pulses normal, other - trace edema BLE Neurologic/Psychiatric: alert, responsive Laboratory Tests 07/16/18 19:30: White Blood Count 3.4L, Red Blood Count 2.36L, Hemoglobin 7.4L, Hematocrit 23.1L , Mean Corpuscular Volume 98, Mean Corpuscular Hemoglobin 31.2H, Mean Corpuscular Hemoglobin Concent 31.9L, Red Cell Distribution Width 15.9H, Platelet Count 84L, Mean Platelet Volume 7.7, Neutrophils (%) (Auto) , Lymphocytes (%) (Auto) , Monocytes (%) (Auto) , Eosinophils (%) (Auto) , Basophils (%) (Auto) , Differential Total Cells Counted 100, Neutrophils % ( Manual) 79H, Lymphocytes % (Manual) 10L, Monocytes % (Manual) 7, Eosinophils % ( Manual) 3, Basophils % (Manual) 1, Band Neutrophils 0, Platelet Estimate DecreasedL, Platelet Morphology Normal, Hypochromasia 3+, Anisocytosis 1+, Sodium Level 144, Potassium Level 4.2, Chloride Level 103, Carbon Dioxide Level 32, Anion Gap 9, Blood Urea Nitrogen 81H, Creatinine 8.6H, Estimat Glomerular Filtration Rate 7.5, Glucose Level 120H, Calcium Level 7.9L, Total Bilirubin 0.7 , Aspartate Amino Transf (AST/SGOT) 18, Alanine Aminotransferase (ALT/SGPT) 32, Alkaline Phosphatase 117H, Total Protein 6.2L, Albumin 2.7L, Globulin 3.5, Albumin/Globulin Ratio 0.8L 07/17/18 05:10: White Blood Count 3.6L, Red Blood Count 2.20L, Hemoglobin 7.0L, Hematocrit 21.8L , Mean Corpuscular Volume 99, Mean Corpuscular Hemoglobin 31.9H, Mean Corpuscular Hemoglobin Concent 32.2, Red Cell Distribution Width 16.4H, Platelet Count 79L, Mean Platelet Volume 7.7, Neutrophils (%) (Auto) , Lymphocytes (%) (Auto) , Monocytes (%) (Auto) , Eosinophils (%) (Auto) , Basophils (%) (Auto) , Differential Total Cells Counted 100, Neutrophils % ( Manual) 80H, Lymphocytes % (Manual) 10L, Monocytes % (Manual) 8, Eosinophils % ( Manual) 2, Basophils % (Manual) 0, Band Neutrophils 0, Platelet Estimate DecreasedL, Platelet Morphology Normal, Anisocytosis 1+, Sodium Level 146H, Potassium Level 3.7, Chloride Level 103, Carbon Dioxide Level 32, Anion Gap 12, Blood Urea Nitrogen 92H, Creatinine 9.3H, Estimat Glomerular Filtration Rate 6.9 , Glucose Level 83, Calcium Level 8.9, Total Bilirubin 0.6, Aspartate Amino Transf (AST/SGOT) 18, Alanine Aminotransferase (ALT/SGPT) 30, Alkaline Phosphatase 115, Total Protein 6.5, Albumin 2.9L, Globulin 3.6, Albumin/ Globulin Ratio 0.8L, Erythrocyte Sedimentation Rate 47H, Hemoglobin A1c 5.3, Uric Acid 5.5, Phosphorus Level 8.0H, Magnesium Level 2.3, Gamma Glutamyl Transpeptidase 23, Ammonia 74H, Total Creatine Kinase 178, Troponin I 0.164H, C- Reactive Protein, Quantitative 2.9H, Pro-B-Type Natriuretic Peptide 16478O, Lipase 317, Thyroid Stimulating Hormone (TSH) 1.543 Current Medications Medications (Trade) Dose Ordered Sig/Praveen Route PRN Reason Start Time Stop Time Status Last Admin Dose Admin Acetaminophen (Tylenol) 650 mg Q4H PRN ORAL fever 07/16/18 18:00 08/15/18 17:59 Albuterol/ Ipratropium (Albuterol/ Ipratropium) 3 ml Q6H PRN HHN dyspnea 07/16/18 18:00 07/21/18 17:59 Clonidine HCl (Catapres Tab) 0.1 mg Q4H PRN ORAL for sbp more than 160 07/16/18 18:00 08/15/18 17:59 Dextrose (Dextrose 50%) 25 ml Q1H PRN IV Hypoglycemia 07/16/18 18:00 Dextrose (Dextrose 50%) 50 ml Q1H PRN IV hypoglycemia 07/16/18 18:00 Docusate Sodium (Colace) 100 mg TID ORAL 07/16/18 18:00 08/15/18 10:59 07/16/18 18:19 Epoetin Yao (Procrit (for ESRD on dialysis)) 10,000 units THU-THU-THU SUBQ 07/16/18 21:00 08/15/18 20:59 07/16/18 20:18 Famotidine (Pepcid) 20 mg DAILY ORAL 07/17/18 09:00 08/16/18 08:59 Iron Sucrose 100 mg/Sodium Chloride 55 ml @ 200 mls/hr BEDTIME IV 07/16/18 21:00 07/25/18 21:17 07/16/18 20:18 Labetalol HCl (Normodyne) 100 mg EVERY 8 HOURS ORAL 07/16/18 22:00 08/15/18 13:59 07/16/18 21:44 Morphine Sulfate (Morphine Sulfate) 1 mg Q4H PRN IVP For Pain 07/16/18 18:00 07/23/18 17:59 Ondansetron HCl (Zofran) 4 mg Q6H PRN IVP Nausea & Vomiting 07/16/18 18:00 08/15/18 17:59 Polyethylene Glycol (Miralax) 17 gm HSPRN PRN ORAL Constipation 07/16/18 21:00 08/15/18 20:59 Quetiapine Fumarate (SEROquel) 25 mg Q6H PRN ORAL For Anxiety 07/16/18 18:00 08/15/18 17:59 Quetiapine Fumarate (SEROquel) 100 mg Q8HR ORAL 07/16/18 22:00 08/15/18 13:59 07/16/18 21:44 Sevelamer Carbonate (Renvela) 2,400 mg THREE TIMES A DAY ORAL 07/16/18 18:00 08/15/18 12:59 07/16/18 18:19 Zolpidem Tartrate (Ambien) 5 mg HSPRN PRN ORAL Insomnia 07/16/18 21:00 07/23/18 20:59 Fernanda Chacon NP Jul 17, 2018 13:03
--- NOTE | 2018-07-17 13:17 | Cardiology Progress Note ---
Assessment/Plan Status: stable Assessment/Plan Assessment: 1) ESRD (end stage renal disease) on dialysis (2) Anemia in chronic kidney disease (CKD) (3) Hypertensive kidney disease (4) Encephalopathy (5) DM (6) Hyperlipemia Plan: Maintain hemodialysis Echocardiogram --> preserved systolic function, mild valvular regurgitation, mild pulmonary hypertension, elevated filling pressures Stress text next week to evaluate chest pain given multiple cardiac risk factors Aspirin Statin Serial EKG/Troponin No indication for troponin at this time. No indication for urgent cardiac cath LE ultrasound Subjective Cardiovascular: Reports: no symptoms Respiratory: Reports: no symptoms Gastrointestinal/Abdominal: Reports: no symptoms Genitourinary: Reports: no symptoms Subjective No acute events, no complaints, Vitals stable, no chest pain currently. Had HD session. Objective Last 24 Hour Vital Signs Date Time Temp Pulse Resp B/P (MAP) Pulse Ox O2 Delivery O2 Flow Rate FiO2 07/17/18 12:00 98.1 85 20 145/61 (89) 96 98.1 07/17/18 12:00 88 07/17/18 09:00 Nasal Cannula 2.0 07/17/18 08:30 83 20 Nasal Cannula 2.0 28 07/17/18 08:00 98.2 90 20 134/60 (84) 92 98.2 07/17/18 08:00 79 07/17/18 04:00 97.9 84 21 140/58 (85) 94 97.9 07/17/18 04:00 Nasal Cannula 2.0 07/17/18 04:00 80 07/17/18 04:00 2.0 07/17/18 00:00 80 07/17/18 00:00 Nasal Cannula 2.0 07/17/18 00:00 98.1 84 24 142/54 (83) 100 98.1 07/17/18 00:00 2.0 07/16/18 21:44 90 132/57 07/16/18 20:02 82 07/16/18 20:00 Nasal Cannula 2.0 07/16/18 20:00 97.9 90 20 132/57 (82) 100 97.9 07/16/18 20:00 2.0 07/16/18 17:00 89 24 128/39 (68) 100 07/16/18 16:00 2.0 07/16/18 16:00 99.5 93 19 119/41 (67) 98 99.5 07/16/18 16:00 Nasal Cannula 2.0 07/16/18 16:00 89 07/16/18 15:00 93 19 120/36 (64) 98 07/16/18 14:00 88 130/58 07/16/18 14:00 90 30 136/44 (74) 99 General Appearance: no apparent distress, alert EENT: PERRL/EOMI Neck: non-tender, normal alignment Rhythm: NSR Cardiovascular: normal peripheral pulses, normal rate Respiratory/Chest: chest wall non-tender, lungs clear Abdomen: normal bowel sounds, non tender Extremities: normal range of motion Intake and Output 07/16/18 07/17/18 19:00 07:00 Intake Total 340 ml 50 ml Output Total 2300 ml Balance -1960 ml 50 ml Intake Oral 100 ml 50 ml Tube Feeding 240 ml Output Urine Total 0 ml Hemodialysis UF 2300 ml # Voids 1 1 # Bowel Movements 1 Laboratory Tests Test 07/16/18 19:30 07/17/18 05:10 White Blood Count 3.4 K/UL (4.8-10.8) L 3.6 K/UL (4.8-10.8) L Red Blood Count 2.36 M/UL (4.70-6.10) L 2.20 M/UL (4.70-6.10) L Hemoglobin 7.4 G/DL (14.2-18.0) L 7.0 G/DL (14.2-18.0) L Hematocrit 23.1 % (42.0-52.0) L 21.8 % (42.0-52.0) L Mean Corpuscular Volume 98 FL (80-99) 99 FL (80-99) Mean Corpuscular Hemoglobin 31.2 PG (27.0-31.0) H 31.9 PG (27.0-31.0) H Mean Corpuscular Hemoglobin Concent 31.9 G/DL (32.0-36.0) L 32.2 G/DL (32.0-36.0) Red Cell Distribution Width 15.9 % (11.6-14.8) H 16.4 % (11.6-14.8) H Platelet Count 84 K/UL (150-450) L 79 K/UL (150-450) L Mean Platelet Volume 7.7 FL (6.5-10.1) 7.7 FL (6.5-10.1) Neutrophils (%) (Auto) % (45.0-75.0) % (45.0-75.0) Lymphocytes (%) (Auto) % (20.0-45.0) % (20.0-45.0) Monocytes (%) (Auto) % (1.0-10.0) % (1.0-10.0) Eosinophils (%) (Auto) % (0.0-3.0) % (0.0-3.0) Basophils (%) (Auto) % (0.0-2.0) % (0.0-2.0) Differential Total Cells Counted 100 100 Neutrophils % (Manual) 79 % (45-75) H 80 % (45-75) H Lymphocytes % (Manual) 10 % (20-45) L 10 % (20-45) L Monocytes % (Manual) 7 % (1-10) 8 % (1-10) Eosinophils % (Manual) 3 % (0-3) 2 % (0-3) Basophils % (Manual) 1 % (0-2) 0 % (0-2) Band Neutrophils 0 % (0-8) 0 % (0-8) Platelet Estimate Decreased L Decreased L Platelet Morphology Normal Normal Hypochromasia 3+ Anisocytosis 1+ 1+ Sodium Level 144 MMOL/L (136-145) 146 MMOL/L (136-145) H Potassium Level 4.2 MMOL/L (3.5-5.1) 3.7 MMOL/L (3.5-5.1) Chloride Level 103 MMOL/L (98-107) 103 MMOL/L (98-107) Carbon Dioxide Level 32 MMOL/L (21-32) 32 MMOL/L (21-32) Anion Gap 9 mmol/L (5-15) 12 mmol/L (5-15) Blood Urea Nitrogen 81 mg/dL (7-18) H 92 mg/dL (7-18) H Creatinine 8.6 MG/DL (0.55-1.30) H 9.3 MG/DL (0.55-1.30) H Estimat Glomerular Filtration Rate 7.5 mL/min (>60) 6.9 mL/min (>60) Glucose Level 120 MG/DL (74-106) H 83 MG/DL (74-106) Calcium Level 7.9 MG/DL (8.5-10.1) L 8.9 MG/DL (8.5-10.1) Total Bilirubin 0.7 MG/DL (0.2-1.0) 0.6 MG/DL (0.2-1.0) Aspartate Amino Transf (AST/SGOT) 18 U/L (15-37) 18 U/L (15-37) Alanine Aminotransferase (ALT/SGPT) 32 U/L (12-78) 30 U/L (12-78) Alkaline Phosphatase 117 U/L (46-116) H 115 U/L (46-116) Total Protein 6.2 G/DL (6.4-8.2) L 6.5 G/DL (6.4-8.2) Albumin 2.7 G/DL (3.4-5.0) L 2.9 G/DL (3.4-5.0) L Globulin 3.5 g/dL 3.6 g/dL Albumin/Globulin Ratio 0.8 (1.0-2.7) L 0.8 (1.0-2.7) L Erythrocyte Sedimentation Rate 47 MM/HR (0-20) H Hemoglobin A1c 5.3 % (4.3-6.0) Uric Acid 5.5 MG/DL (2.6-7.2) Phosphorus Level 8.0 MG/DL (2.5-4.9) H Magnesium Level 2.3 MG/DL (1.8-2.4) Gamma Glutamyl Transpeptidase 23 U/L (5-85) Ammonia 74 umol/L (11-32) H Total Creatine Kinase 178 U/L (26-308) Troponin I 0.164 ng/mL (0.000-0.056) C-Reactive Protein, Quantitative 2.9 mg/dL (0.00-0.90) H Pro-B-Type Natriuretic Peptide 43344 pg/mL (0-125) H Lipase 317 U/L (73-393) Thyroid Stimulating Hormone (TSH) 1.543 uiU/mL (0.358-3.740) Yimi Luevano MD Jul 17, 2018 13:17
[2018-07-17] MEDS ORDERED: Tubing IV Blood Pump IV ONE (15:21)
[2018-07-17] MEDS ORDERED: NS 275ml ONE (15:21)
[2018-07-17 16:00] VITALS: BP 139/61
--- NOTE | 2018-07-17 16:12 | General Progress Note ---
Assessment/Plan Assessment/Plan # Pancytopenia potnetially reactive process versus meds related or related to bone marrow process --> hepatitis and hiv both reviewed and are negative --> us of the abd shows spenomegaly --> may consider a bone marrow biopsy if doesnt resolve early next week # Anemia of chronic disease has been evaluated and reviewed --> does have evidence of iron deficiency --> po iron once discharged --> ok for epogen # Sharp chest pain shortness of breath --> DDX: ACS vs. CHF vs. pneumonia vs. gastritis/GERD vs. pneumothorax versus fluid overload/end-stage renal disease --> nephrology consulted # AZAM on CKD --> appreciate nephrology recs # ESRD as per nephro # +cardiomeghaly with PVC Greatly appreciate consultation! Subjective Constitutional: Denies: no symptoms, chills, diaphoresis, fever, malaise, weakness, other HEENT: Denies: no symptoms, eye pain, blurred vision, tearing, double vision, ear pain, ear discharge, nose pain, nose congestion, throat pain, throat swelling, mouth pain, mouth swelling, other Respiratory: Denies: no symptoms, cough, orthopnea, shortness of breath, SOB with excertion, SOB at rest, sputum, stridor, wheezing, other Gastrointestinal/Abdominal: Denies: no symptoms, abdomen distended, abdominal pain, black stools, tarry stools, blood in stool, constipated, diarrhea, difficulty swallowing, nausea, poor appetite, poor fluid intake, rectal bleeding , vomiting, other Genitourinary: Denies: no symptoms, burning, discharge, frequency, flank pain, hematuria, incontinence, pain, urgency, other Neurologic/Psychiatric: Denies: no symptoms, anxiety, depressed, emotional problems, headache, numbness, paresthesia, pre-existing deficit, seizure, tingling, tremors, weakness, other Endocrine: Denies: no symptoms, excessive sweating, flushing, intolerance to cold, intolerance to heat, increased hunger, increased thirst, increased urine, unexplained weight gain, unexplained weight loss, other Hematologic/Lymphatic: Denies: no symptoms, anemia, easy bleeding, easy bruising, other Allergies: Coded Allergies: No Known Allergies (Verified , 11/24/07) UNABLE TO ASSESS (Unverified , 07/15/18) Subjective resting comfortably, cbc reviewed, no pain Objective Last 24 Hour Vital Signs Date Time Temp Pulse Resp B/P (MAP) Pulse Ox O2 Delivery O2 Flow Rate FiO2 07/17/18 14:02 82 149/61 07/17/18 12:00 98.1 85 20 145/61 (89) 96 98.1 07/17/18 12:00 88 07/17/18 09:00 Nasal Cannula 2.0 07/17/18 08:30 83 20 Nasal Cannula 2.0 28 07/17/18 08:00 98.2 90 20 134/60 (84) 92 98.2 07/17/18 08:00 79 07/17/18 04:00 97.9 84 21 140/58 (85) 94 97.9 07/17/18 04:00 Nasal Cannula 2.0 07/17/18 04:00 80 07/17/18 04:00 2.0 07/17/18 00:00 80 07/17/18 00:00 Nasal Cannula 2.0 07/17/18 00:00 98.1 84 24 142/54 (83) 100 98.1 07/17/18 00:00 2.0 07/16/18 21:44 90 132/57 07/16/18 20:02 82 07/16/18 20:00 Nasal Cannula 2.0 07/16/18 20:00 97.9 90 20 132/57 (82) 100 97.9 07/16/18 20:00 2.0 07/16/18 17:00 89 24 128/39 (68) 100 Intake and Output 07/16/18 07/17/18 19:00 07:00 Intake Total 340 ml 50 ml Output Total 2300 ml Balance -1960 ml 50 ml Intake Oral 100 ml 50 ml Tube Feeding 240 ml Output Urine Total 0 ml Hemodialysis UF 2300 ml # Voids 1 1 # Bowel Movements 1 Laboratory Tests 07/16/18 19:30: White Blood Count 3.4L, Red Blood Count 2.36L, Hemoglobin 7.4L, Hematocrit 23.1L , Mean Corpuscular Volume 98, Mean Corpuscular Hemoglobin 31.2H, Mean Corpuscular Hemoglobin Concent 31.9L, Red Cell Distribution Width 15.9H, Platelet Count 84L, Mean Platelet Volume 7.7, Neutrophils (%) (Auto) , Lymphocytes (%) (Auto) , Monocytes (%) (Auto) , Eosinophils (%) (Auto) , Basophils (%) (Auto) , Differential Total Cells Counted 100, Neutrophils % ( Manual) 79H, Lymphocytes % (Manual) 10L, Monocytes % (Manual) 7, Eosinophils % ( Manual) 3, Basophils % (Manual) 1, Band Neutrophils 0, Platelet Estimate DecreasedL, Platelet Morphology Normal, Hypochromasia 3+, Anisocytosis 1+, Sodium Level 144, Potassium Level 4.2, Chloride Level 103, Carbon Dioxide Level 32, Anion Gap 9, Blood Urea Nitrogen 81H, Creatinine 8.6H, Estimat Glomerular Filtration Rate 7.5, Glucose Level 120H, Calcium Level 7.9L, Total Bilirubin 0.7 , Aspartate Amino Transf (AST/SGOT) 18, Alanine Aminotransferase (ALT/SGPT) 32, Alkaline Phosphatase 117H, Total Protein 6.2L, Albumin 2.7L, Globulin 3.5, Albumin/Globulin Ratio 0.8L 07/17/18 05:10: White Blood Count 3.6L, Red Blood Count 2.20L, Hemoglobin 7.0L, Hematocrit 21.8L , Mean Corpuscular Volume 99, Mean Corpuscular Hemoglobin 31.9H, Mean Corpuscular Hemoglobin Concent 32.2, Red Cell Distribution Width 16.4H, Platelet Count 79L, Mean Platelet Volume 7.7, Neutrophils (%) (Auto) , Lymphocytes (%) (Auto) , Monocytes (%) (Auto) , Eosinophils (%) (Auto) , Basophils (%) (Auto) , Differential Total Cells Counted 100, Neutrophils % ( Manual) 80H, Lymphocytes % (Manual) 10L, Monocytes % (Manual) 8, Eosinophils % ( Manual) 2, Basophils % (Manual) 0, Band Neutrophils 0, Platelet Estimate DecreasedL, Platelet Morphology Normal, Anisocytosis 1+, Sodium Level 146H, Potassium Level 3.7, Chloride Level 103, Carbon Dioxide Level 32, Anion Gap 12, Blood Urea Nitrogen 92H, Creatinine 9.3H, Estimat Glomerular Filtration Rate 6.9 , Glucose Level 83, Calcium Level 8.9, Total Bilirubin 0.6, Aspartate Amino Transf (AST/SGOT) 18, Alanine Aminotransferase (ALT/SGPT) 30, Alkaline Phosphatase 115, Total Protein 6.5, Albumin 2.9L, Globulin 3.6, Albumin/ Globulin Ratio 0.8L, Erythrocyte Sedimentation Rate 47H, Hemoglobin A1c 5.3, Uric Acid 5.5, Phosphorus Level 8.0H, Magnesium Level 2.3, Gamma Glutamyl Transpeptidase 23, Ammonia 74H, Total Creatine Kinase 178, Troponin I 0.164H, C- Reactive Protein, Quantitative 2.9H, Pro-B-Type Natriuretic Peptide 70611K, Lipase 317, Thyroid Stimulating Hormone (TSH) 1.543 Height (Feet): 5 Height (Inches): 8.00 Weight (Pounds): 214 General Appearance: no apparent distress EENT: normal ENT inspection Neck: supple Cardiovascular: regular rhythm Respiratory/Chest: normal breath sounds Abdomen: soft Extremities: non-tender Edema: 1+ Leg (L), 1+ Leg (R) Virgil Ward MD Jul 17, 2018 16:12
[2018-07-17] MEDS: Haloperidol 5mg/ml Inj IM PRN (16:36)
[2018-07-17 20:00] VITALS: BP 146/76
[2018-07-17] MEDS: NovoLOG Insulin Flexpen SUBQ SCH (21:00)
[2018-07-18] VITALS: BP 135/55
[2018-07-18 04:00] VITALS: BP 149/68
[2018-07-18] MEDS: Haloperidol 5mg/ml Inj IM PRN ×2 (04:07→10:19)
[2018-07-18] MEDS: NovoLOG Insulin Flexpen SUBQ SCH ×4 (06:22→21:32)
--- NOTE | 2018-07-18 07:54 | Pulmonology Progress Note ---
Assessment/Plan Assessment/Plan ASSESSMENT acute on chronic diastolic heart failure acute metabolic encephalopathy end-stage renal disease, on hemodialysis hypertensive heart disease elevated troponin COPD/asthma pulmonary hypertension anemia of chronic kidney disease dementia pancytopenia PLAN OF CARE telemetry floor ECHO with pEF 55-60% and RVSP of 43, c/w mild pulm HTN likely due to underlying COPD BP management with CCB and BB cardio follows last troponin with mild elevation, no chest pain ; further management per cardio O2 to keep pulse ox > 92%, pulm toilet prn CXR with CHF , no evidence of pneumonia on exam no bronchospasm, no resp distress off Heparin SQ due to low PLT get Venous Duplex BLE , if negative 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 monitor H&H , s/p transfusion 07/17, HH up after transfusion heme follows on EPO HIV and hepatitis screen negative, monitor counts GI prophylaxis bowel regimen pain management prn psych follows per psych pt lacks capacity to make decision, Seroquel prn as per psych supportive care case discussed and evaluated by supervising physician Subjective Allergies: Coded Allergies: No Known Allergies (Verified , 11/24/07) UNABLE TO ASSESS (Unverified , 07/15/18) Subjective no chest pain on O2 via NC, pulse ox stable no signs of resp distress s/p PRBC 07/17 labs pending for this am Objective Last 24 Hour Vital Signs Date Time Temp Pulse Resp B/P (MAP) Pulse Ox O2 Delivery O2 Flow Rate FiO2 07/18/18 05:49 78 149/68 07/18/18 04:00 97.7 76 20 149/68 (95) 100 97.7 07/18/18 04:00 78 07/18/18 00:00 64 07/18/18 00:00 97.7 65 20 135/55 (81) 96 97.7 07/17/18 21:24 75 146/76 07/17/18 21:00 Nasal Cannula 2.0 07/17/18 20:00 97.3 72 20 146/76 (99) 100 97.3 07/17/18 20:00 75 07/17/18 19:47 Nasal Cannula 2.0 28 07/17/18 19:47 95 Nasal Cannula 2.0 28 07/17/18 19:47 71 20 Nasal Cannula 2.0 28 9/22/18 16:00 81 07/17/18 16:00 97.6 77 20 139/61 (87) 93 97.6 07/17/18 14:02 82 149/61 07/17/18 12:00 98.1 85 20 145/61 (89) 96 98.1 07/17/18 12:00 88 07/17/18 09:00 Nasal Cannula 2.0 07/17/18 08:30 83 20 Nasal Cannula 2.0 28 07/17/18 08:00 98.2 90 20 134/60 (84) 92 98.2 07/17/18 08:00 79 Intake and Output 07/17/18 07/18/18 19:00 07:00 Intake Total 360 ml 50 ml Balance 360 ml 50 ml Intake Oral 360 ml 50 ml # Voids 1 Objective General Appearance: no acute distress HEENT: normocephalic, atraumatic, anicteric Respiratory/Chest: lungs clear - with moderate air exchange, R subclavian HD catheter Cardiovascular: SR with LBBB, regular rhythm Abdomen: normal bowel sounds, soft, non tender -,obese Extremities: no cyanosis, pedal pulses normal, trace edema BLE Neurologic/Psychiatric: alert, responsive Current Medications Medications (Trade) Dose Ordered Sig/Praveen Route PRN Reason Start Time Stop Time Status Last Admin Dose Admin Acetaminophen (Tylenol) 650 mg Q4H PRN ORAL fever 07/16/18 18:00 08/15/18 17:59 Albuterol/ Ipratropium (Albuterol/ Ipratropium) 3 ml Q6H PRN HHN dyspnea 07/16/18 18:00 07/21/18 17:59 Clonidine HCl (Catapres Tab) 0.1 mg Q4H PRN ORAL for sbp more than 160 07/16/18 18:00 08/15/18 17:59 Dextrose (Dextrose 50%) 25 ml Q1H PRN IV Hypoglycemia 07/16/18 18:00 Dextrose (Dextrose 50%) 50 ml Q1H PRN IV hypoglycemia 07/16/18 18:00 Docusate Sodium (Colace) 100 mg TID ORAL 07/16/18 18:00 08/15/18 10:59 07/17/18 16:36 Epoetin Yao (Procrit (for ESRD on dialysis)) 10,000 units THU-WED-THU SUBQ 07/16/18 21:00 08/15/18 20:59 07/16/18 20:18 Famotidine (Pepcid) 20 mg DAILY ORAL 07/17/18 09:00 08/16/18 08:59 Haloperidol Lactate (Haldol) 5 mg Q6H PRN IM Agitation 07/17/18 15:30 08/16/18 15:29 07/18/18 04:07 Insulin Aspart (NovoLOG) BEFORE MEALS AND HS SUBQ 07/17/18 21:00 08/16/18 20:59 Iron Sucrose 100 mg/Sodium Chloride 55 ml @ 200 mls/hr BEDTIME IV 07/16/18 21:00 07/25/18 21:17 07/17/18 21:24 Labetalol HCl (Normodyne) 100 mg EVERY 8 HOURS ORAL 07/16/18 22:00 08/15/18 13:59 07/18/18 05:49 Morphine Sulfate (Morphine Sulfate) 1 mg Q4H PRN IVP For Pain 07/16/18 18:00 07/23/18 17:59 07/17/18 12:55 Ondansetron HCl (Zofran) 4 mg Q6H PRN IVP Nausea & Vomiting 07/16/18 18:00 08/15/18 17:59 Polyethylene Glycol (Miralax) 17 gm HSPRN PRN ORAL Constipation 07/16/18 21:00 08/15/18 20:59 Quetiapine Fumarate (SEROquel) 25 mg Q6H PRN ORAL For Anxiety 07/16/18 18:00 08/15/18 17:59 Quetiapine Fumarate (SEROquel) 100 mg Q8HR ORAL 07/16/18 22:00 08/15/18 13:59 07/17/18 14:02 Sevelamer Carbonate (Renvela) 2,400 mg THREE TIMES A DAY ORAL 07/16/18 18:00 08/15/18 12:59 07/17/18 16:35 Zolpidem Tartrate (Ambien) 5 mg HSPRN PRN ORAL Insomnia 07/16/18 21:00 07/23/18 20:59 Fernanda Chacon [employer] Jul 18, 2018 07:54
[2018-07-18 08:00] VITALS: BP 122/46
[2018-07-18 08:13] LABS: HEMATOCRIT 26.8 % (42.0-52.0); HEMOGLOBIN 8.7 G/DL (14.2-18.0); MEAN CORPUSCULAR VOLUME 96 FL (80-99); PLATELET COUNT 87 K/UL (150-450); RED BLOOD COUNT 2.79 M/UL (4.70-6.10); RED CELL DISTRIBUTION WIDTH 17.1 % (11.6-14.8); WHITE BLOOD COUNT 4.1 K/UL (4.8-10.8)
[2018-07-18 08:46] LABS: ANION GAP 7 mmol/L (5-15); BLOOD UREA NITROGEN 99 mg/dL (7-18); CALCIUM 8.5 MG/DL (8.5-10.1); CARBON DIOXIDE 33 MMOL/L (21-32); CHLORIDE 103 MMOL/L (98-107); CREATININE 10.5 MG/DL (0.55-1.30); PHOSPHORUS 10.1 MG/DL (2.5-4.9); POTASSIUM 4.2 MMOL/L (3.5-5.1); SODIUM 143 MMOL/L (136-145)
[2018-07-18] MEDS: Renvela 2400 mg pkt ORAL SCH ×4 (08:58→18:24)
[2018-07-18] MEDS: Docusate 100mg cap ORAL SCH ×4 (08:58→18:24)
--- NOTE | 2018-07-18 09:09 | General Progress Note ---
Assessment/Plan Assessment/Plan # Pancytopenia potnetially reactive process versus meds related or related to bone marrow process --> hepatitis and hiv both reviewed and are negative --> us of the abd shows spenomegaly --> may consider a bone marrow biopsy if doesnt resolve early next week --> cbc has been reviewed daily # Anemia of chronic disease has been evaluated and reviewed --> does have evidence of iron deficiency, has been given iron once d/c --> po iron once discharged --> ok for epogen # Sharp chest pain shortness of breath --> ddx: ACS vs. CHF vs. pneumonia vs. gastritis/GERD vs pneumothorax versus fluid overload/end-stage renal disease --> nephrology consulted # AZAM on CKD --> appreciate nephrology recs # ESRD as per nephro # + cardiomeghaly with PVC Greatly appreciate consultation! Subjective Constitutional: Denies: no symptoms, chills, diaphoresis, fever, malaise, weakness, other HEENT: Denies: no symptoms, eye pain, blurred vision, tearing, double vision, ear pain, ear discharge, nose pain, nose congestion, throat pain, throat swelling, mouth pain, mouth swelling, other Cardiovascular: Denies: no symptoms, chest pain, edema, irregular heart rate, lightheadedness, palpitations, syncope, other Respiratory: Denies: no symptoms, cough, orthopnea, shortness of breath, SOB with excertion, SOB at rest, sputum, stridor, wheezing, other Gastrointestinal/Abdominal: Denies: no symptoms, abdomen distended, abdominal pain, black stools, tarry stools, blood in stool, constipated, diarrhea, difficulty swallowing, nausea, poor appetite, poor fluid intake, rectal bleeding , vomiting, other Genitourinary: Denies: no symptoms, burning, discharge, frequency, flank pain, hematuria, incontinence, pain, urgency, other Neurologic/Psychiatric: Denies: no symptoms, anxiety, depressed, emotional problems, headache, numbness, paresthesia, pre-existing deficit, seizure, tingling, tremors, weakness, other Endocrine: Denies: no symptoms, excessive sweating, flushing, intolerance to cold, intolerance to heat, increased hunger, increased thirst, increased urine, unexplained weight gain, unexplained weight loss, other Hematologic/Lymphatic: Denies: no symptoms, anemia, easy bleeding, easy bruising, other Allergies: Coded Allergies: No Known Allergies (Verified , 11/24/07) UNABLE TO ASSESS (Unverified , 07/15/18) Subjective is resting comfortably, cbc has been reviewed Objective Last 24 Hour Vital Signs Date Time Temp Pulse Resp B/P (MAP) Pulse Ox O2 Delivery O2 Flow Rate FiO2 07/18/18 08:00 97.3 63 20 122/46 (71) 96 97.3 07/18/18 05:49 78 149/68 07/18/18 04:00 97.7 76 20 149/68 (95) 100 97.7 07/18/18 04:00 78 07/18/18 00:00 64 07/18/18 00:00 97.7 65 20 135/55 (81) 96 97.7 07/17/18 21:24 75 146/76 07/17/18 21:00 Nasal Cannula 2.0 07/17/18 20:00 97.3 72 20 146/76 (99) 100 97.3 07/17/18 20:00 75 07/17/18 19:47 Nasal Cannula 2.0 28 07/17/18 19:47 95 Nasal Cannula 2.0 28 07/17/18 19:47 71 20 Nasal Cannula 2.0 28 07/17/18 16:00 81 07/17/18 16:00 97.6 77 20 139/61 (87) 93 97.6 07/17/18 14:02 82 149/61 07/17/18 12:00 98.1 85 20 145/61 (89) 96 98.1 07/17/18 12:00 88 Intake and Output 07/17/18 07/18/18 19:00 07:00 Intake Total 360 ml 50 ml Balance 360 ml 50 ml Intake Oral 360 ml 50 ml # Voids 1 Laboratory Tests 07/18/18 06:18: White Blood Count 4.1L, Red Blood Count 2.79L, Hemoglobin 8.7L, Hematocrit 26.8L , Mean Corpuscular Volume 96, Mean Corpuscular Hemoglobin 31.1H, Mean Corpuscular Hemoglobin Concent 32.4, Red Cell Distribution Width 17.1H, Platelet Count 87L, Mean Platelet Volume 8.7, Neutrophils (%) (Auto) , Lymphocytes (%) (Auto) , Monocytes (%) (Auto) , Eosinophils (%) (Auto) , Basophils (%) (Auto) , Differential Total Cells Counted 100, Neutrophils % ( Manual) 81H, Lymphocytes % (Manual) 13L, Monocytes % (Manual) 6, Eosinophils % ( Manual) 0, Basophils % (Manual) 0, Band Neutrophils 0, Platelet Estimate DecreasedL, Platelet Morphology Normal, Sodium Level 143, Potassium Level 4.2, Chloride Level 103, Carbon Dioxide Level 33H, Anion Gap 7, Blood Urea Nitrogen 99H, Creatinine 10.5H, Estimat Glomerular Filtration Rate 6.1, Glucose Level 81 , Calcium Level 8.5, Phosphorus Level 10.1H, Magnesium Level 2.4, Troponin I 0.180H Height (Feet): 5 Height (Inches): 8.00 Weight (Pounds): 221 General Appearance: lethargic EENT: TMs normal Neck: supple Cardiovascular: normal rate Respiratory/Chest: lungs clear Abdomen: non tender Extremities: non-tender Edema: no edema noted Leg (L), no edema noted Leg (R) Edema: mild edema Virgil Ward MD Jul 18, 2018 09:09
--- NOTE | 2018-07-18 10:26 | General Progress Note ---
Assessment/Plan Problem List: (1) Hyperkalemia ICD Codes: E87.5 - Hyperkalemia SNOMED: 15177435 (2) Acute on chronic diastolic (congestive) heart failure ICD Codes: I50.33 - Acute on chronic diastolic (congestive) heart failure SNOMED: 15446284, 900858302 (3) Acute metabolic encephalopathy ICD Codes: G93.41 - Metabolic encephalopathy SNOMED: 14837128, 089747124 (4) ESRD (end stage renal disease) on dialysis ICD Codes: N18.6 - End stage renal disease; Z99.2 - Dependence on renal dialysis SNOMED: 426969574 (5) HTN (hypertension) ICD Codes: I10 - Essential (primary) hypertension SNOMED: 99331912 (6) Hypertensive heart and renal disease ICD Codes: I13.10 - Hypertensive heart and chronic kidney disease without heart failure, with stage 1 through stage 4 chronic kidney disease, or unspecified chronic kidney disease SNOMED: 16981353 (7) Anemia in ESRD (end-stage renal disease) ICD Codes: N18.6 - End stage renal disease; D63.1 - Anemia in chronic kidney disease SNOMED: 07555458, 969448854 (8) Dementia with psychosis ICD Codes: F03.91 - Unspecified dementia with behavioral disturbance SNOMED: 88606839, 14171483 (9) Pancytopenia ICD Codes: D61.818 - Other pancytopenia SNOMED: 288955027 Status: stable Assessment/Plan # Severe hyperkalemia - K 8.4 on admit, now improved s/p HD # Metabolic acidosis # ESRD on HD - Transferred out of ICU on 07/17/18 - Pulm/critical care consulted - Renal consulted - cont HD per renal. Last HD yesterday - Cont renvela, nephrovite # Acute on chronic diastolic heart failure - Cardiology consulted - Check TTE --> EF wnl - HD for volume removal # NSTEMI type 2 - likely demand ischemia in setting of volume overload - Cardiology consulted - Trend trop/EKG - TTE reviewed and showed normal EF # Acute metabolic encephalopathy - likely in setting of metabolic derangements from renal dysfcn # Dementia with psychosis - Psych consulted - ctm # HTN # Hypertensive heart and renal disease - Cont labetolol # Pancytopenia # Anemia in ESRD # Thrombocytopenia # Leukopenia - Heme/onc consulted - EPO per renal - IV venofer - s/p 1U pRBC on 07/17/18 - ctm CBC DVT Prophylaxis: SCD, HSQ Code Status: Full Hospital Classification Declaration: Based on this initial evaluation, and depending on the patient's clinical course, I anticipate that this patient will require hospitalization for 2-3 days for volume overload, severe hyperK and close respiratory/hemodynamic monitoring. Disposition: Once the patient is stable to leave the hospital, I anticipate the patient will likely be discharged to the following environment: back to SNF I spent 42 minutes on this patient's case, and 22 minutes were dedicated to counseling and/or care coordination. Discussed with patient/family, nursing staff, SW/CM, renal, cardiology regarding clinical status, treatment course, and disposition planning. Time of note may not reflect time of encounter. Subjective Date patient seen: Jul 18, 2018 Time patient seen: 10:26 ROS Limited/Unobtainable: Yes Allergies: Coded Allergies: No Known Allergies (Verified , 11/24/07) UNABLE TO ASSESS (Unverified , 07/15/18) Subjective No acute o/n events Agitated and fell out of bed yesterday, noted to lying down on side on floor, no reported head trauma s/p HD yesterday w/ 2.3L UF Currently somnolent but arousable Objective Last 24 Hour Vital Signs Date Time Temp Pulse Resp B/P (MAP) Pulse Ox O2 Delivery O2 Flow Rate FiO2 07/18/18 08:00 65 07/18/18 08:00 97.3 63 20 122/46 (71) 96 97.3 07/18/18 05:49 78 149/68 07/18/18 04:00 97.7 76 20 149/68 (95) 100 97.7 07/18/18 04:00 78 07/18/18 00:00 64 07/18/18 00:00 97.7 65 20 135/55 (81) 96 97.7 07/17/18 21:24 75 146/76 07/17/18 21:00 Nasal Cannula 2.0 07/17/18 20:00 97.3 72 20 146/76 (99) 100 97.3 07/17/18 20:00 75 07/17/18 19:47 Nasal Cannula 2.0 28 9/22/18 19:47 95 Nasal Cannula 2.0 28 07/17/18 19:47 71 20 Nasal Cannula 2.0 28 07/17/18 16:00 81 07/17/18 16:00 97.6 77 20 139/61 (87) 93 97.6 07/17/18 14:02 82 149/61 07/17/18 12:00 98.1 85 20 145/61 (89) 96 98.1 07/17/18 12:00 88 Intake and Output 07/17/18 07/18/18 19:00 07:00 Intake Total 360 ml 50 ml Balance 360 ml 50 ml Intake Oral 360 ml 50 ml # Voids 1 Laboratory Tests 07/18/18 06:18: White Blood Count 4.1L, Red Blood Count 2.79L, Hemoglobin 8.7L, Hematocrit 26.8L , Mean Corpuscular Volume 96, Mean Corpuscular Hemoglobin 31.1H, Mean Corpuscular Hemoglobin Concent 32.4, Red Cell Distribution Width 17.1H, Platelet Count 87L, Mean Platelet Volume 8.7, Neutrophils (%) (Auto) , Lymphocytes (%) (Auto) , Monocytes (%) (Auto) , Eosinophils (%) (Auto) , Basophils (%) (Auto) , Differential Total Cells Counted 100, Neutrophils % ( Manual) 81H, Lymphocytes % (Manual) 13L, Monocytes % (Manual) 6, Eosinophils % ( Manual) 0, Basophils % (Manual) 0, Band Neutrophils 0, Platelet Estimate DecreasedL, Platelet Morphology Normal, Sodium Level 143, Potassium Level 4.2, Chloride Level 103, Carbon Dioxide Level 33H, Anion Gap 7, Blood Urea Nitrogen 99H, Creatinine 10.5H, Estimat Glomerular Filtration Rate 6.1, Glucose Level 81 , Calcium Level 8.5, Phosphorus Level 10.1H, Magnesium Level 2.4, Troponin I 0.180H Height (Feet): 5 Height (Inches): 8.00 Weight (Pounds): 221 Objective General: alert, cooperative, no distress, appears stated age Head: normocephalic, without obvious abnormality, atraumatic Eyes: conjunctivae/corneas clear. PERRL, EOM's intact Throat: lips, mucosa, and tongue normal. MMM Neck: supple, symmetrical, trachea midline, and no JVD Lungs: clear to auscultation bilaterally Heart: regular rate and rhythm, S1, S2 normal, no murmur, click, rub or gallop Abdomen: soft, non-tender, non-distended, bowel sounds normal; no masses or organomegaly Extremities: extremities normal, atraumatic, no cyanosis or edema Pulses: 2+ and symmetric Skin: skin color, texture, turgor normal; no rashes or lesions Neurologic: grossly normal, no focal deficits Kamilla Padgett M.D. Jul 18, 2018 10:26
--- NOTE | 2018-07-18 10:27 | Nephrology Progress Note ---
Assessment/Plan Problem List: (1) ESRD (end stage renal disease) on dialysis (2) Hyperkalemia (3) CHF (congestive heart failure) (4) Anemia in chronic kidney disease (CKD) Assessment ESRD has permacath hyperkalemia Shortness of breath, CHF Encephalopathy condition: 1) ESRD (end stage renal disease) on dialysis (2) Anemia in chronic kidney disease (CKD) (3) Hypertensive kidney disease (4) Encephalopathy (5) DM (6) Hyperlipemia Plan Dialysed today Continue dialysis as needed optimize cardiac status 2 D echo adjust BP meds Anemia work up : ? transfusion if needed adjust BS meds phos binders st eval per orders Subjective ROS Limited/Unobtainable: No Constitutional: Reports: malaise Objective Objective Last 24 Hour Vital Signs Date Time Temp Pulse Resp B/P (MAP) Pulse Ox O2 Delivery O2 Flow Rate FiO2 07/18/18 08:00 65 07/18/18 08:00 97.3 63 20 122/46 (71) 96 97.3 07/18/18 05:49 78 149/68 07/18/18 04:00 97.7 76 20 149/68 (95) 100 97.7 07/18/18 04:00 78 07/18/18 00:00 64 07/18/18 00:00 97.7 65 20 135/55 (81) 96 97.7 07/17/18 21:24 75 146/76 07/17/18 21:00 Nasal Cannula 2.0 07/17/18 20:00 97.3 72 20 146/76 (99) 100 97.3 07/17/18 20:00 75 07/17/18 19:47 Nasal Cannula 2.0 28 07/17/18 19:47 95 Nasal Cannula 2.0 28 07/17/18 19:47 71 20 Nasal Cannula 2.0 28 07/17/18 16:00 81 07/17/18 16:00 97.6 77 20 139/61 (87) 93 97.6 07/17/18 14:02 82 149/61 07/17/18 12:00 98.1 85 20 145/61 (89) 96 98.1 07/17/18 12:00 88 Intake and Output 07/17/18 07/18/18 19:00 07:00 Intake Total 360 ml 50 ml Balance 360 ml 50 ml Intake Oral 360 ml 50 ml # Voids 1 Laboratory Tests 07/18/18 06:18: White Blood Count 4.1L, Red Blood Count 2.79L, Hemoglobin 8.7L, Hematocrit 26.8L , Mean Corpuscular Volume 96, Mean Corpuscular Hemoglobin 31.1H, Mean Corpuscular Hemoglobin Concent 32.4, Red Cell Distribution Width 17.1H, Platelet Count 87L, Mean Platelet Volume 8.7, Neutrophils (%) (Auto) , Lymphocytes (%) (Auto) , Monocytes (%) (Auto) , Eosinophils (%) (Auto) , Basophils (%) (Auto) , Differential Total Cells Counted 100, Neutrophils % ( Manual) 81H, Lymphocytes % (Manual) 13L, Monocytes % (Manual) 6, Eosinophils % ( Manual) 0, Basophils % (Manual) 0, Band Neutrophils 0, Platelet Estimate DecreasedL, Platelet Morphology Normal, Sodium Level 143, Potassium Level 4.2, Chloride Level 103, Carbon Dioxide Level 33H, Anion Gap 7, Blood Urea Nitrogen 99H, Creatinine 10.5H, Estimat Glomerular Filtration Rate 6.1, Glucose Level 81 , Calcium Level 8.5, Phosphorus Level 10.1H, Magnesium Level 2.4, Troponin I 0.180H Height (Feet): 5 Height (Inches): 8.00 Weight (Pounds): 221 General Appearance: agitated Cardiovascular: normal rate Respiratory/Chest: decreased breath sounds Abdomen: distended Objective no change Mirza Conde MD Jul 18, 2018 10:27
[2018-07-18] MEDS ORDERED: Metoprolol 25mg tab ORAL SCH (11:30)
[2018-07-18 12:00] VITALS: BP 144/65
--- NOTE | 2018-07-18 15:43 | Cardiology Progress Note ---
Assessment/Plan Status: stable Assessment/Plan Assessment: 1) ESRD (end stage renal disease) on dialysis (2) Anemia in chronic kidney disease (CKD) (3) Hypertensive kidney disease (4) Encephalopathy (5) DM (6) Hyperlipemia Plan: Maintain hemodialysis Echocardiogram --> preserved systolic function, mild valvular regurgitation, mild pulmonary hypertension, elevated filling pressures Stress text next week to evaluate chest pain given multiple cardiac risk factors and NSVT Aspirin Statin Serial EKG/Troponin No indication for troponin at this time. No indication for urgent cardiac cath LE ultrasound PRBC transfusion Subjective Cardiovascular: Reports: no symptoms Respiratory: Reports: no symptoms Gastrointestinal/Abdominal: Reports: no symptoms Genitourinary: Reports: no symptoms Subjective No acute events, s/p PRBC transfusion, vitals stable, troponin stable, Echo normal LV function Objective Last 24 Hour Vital Signs Date Time Temp Pulse Resp B/P (MAP) Pulse Ox O2 Delivery O2 Flow Rate FiO2 07/18/18 12:00 97.3 68 20 144/65 (91) 96 97.3 07/18/18 12:00 70 07/18/18 09:00 Nasal Cannula 2.0 07/18/18 08:00 65 07/18/18 08:00 97.3 63 20 122/46 (71) 96 97.3 07/18/18 05:49 78 149/68 07/18/18 04:00 97.7 76 20 149/68 (95) 100 97.7 07/18/18 04:00 78 07/18/18 00:00 64 07/18/18 00:00 97.7 65 20 135/55 (81) 96 97.7 07/17/18 21:24 75 146/76 07/17/18 21:00 Nasal Cannula 2.0 07/17/18 20:00 97.3 72 20 146/76 (99) 100 97.3 07/17/18 20:00 75 07/17/18 19:47 Nasal Cannula 2.0 28 07/17/18 19:47 95 Nasal Cannula 2.0 28 07/17/18 19:47 71 20 Nasal Cannula 2.0 28 07/17/18 16:00 81 07/17/18 16:00 97.6 77 20 139/61 (87) 93 97.6 General Appearance: no apparent distress, alert EENT: PERRL/EOMI, normal ENT inspection Neck: non-tender, normal alignment Rhythm: NSR Cardiovascular: normal peripheral pulses, normal rate Respiratory/Chest: chest wall non-tender, lungs clear Abdomen: normal bowel sounds, non tender Extremities: normal range of motion, non-tender 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: 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-XII grossly normal, no motor/sensory deficits Intake and Output 07/17/18 07/18/18 19:00 07:00 Intake Total 360 ml 50 ml Balance 360 ml 50 ml Intake Oral 360 ml 50 ml # Voids 1 Laboratory Tests Test 07/18/18 06:18 White Blood Count 4.1 K/UL (4.8-10.8) L Red Blood Count 2.79 M/UL (4.70-6.10) L Hemoglobin 8.7 G/DL (14.2-18.0) L Hematocrit 26.8 % (42.0-52.0) L Mean Corpuscular Volume 96 FL (80-99) Mean Corpuscular Hemoglobin 31.1 PG (27.0-31.0) H Mean Corpuscular Hemoglobin Concent 32.4 G/DL (32.0-36.0) Red Cell Distribution Width 17.1 % (11.6-14.8) H Platelet Count 87 K/UL (150-450) L Mean Platelet Volume 8.7 FL (6.5-10.1) Neutrophils (%) (Auto) % (45.0-75.0) Lymphocytes (%) (Auto) % (20.0-45.0) Monocytes (%) (Auto) % (1.0-10.0) Eosinophils (%) (Auto) % (0.0-3.0) Basophils (%) (Auto) % (0.0-2.0) Differential Total Cells Counted 100 Neutrophils % (Manual) 81 % (45-75) H Lymphocytes % (Manual) 13 % (20-45) L Monocytes % (Manual) 6 % (1-10) Eosinophils % (Manual) 0 % (0-3) Basophils % (Manual) 0 % (0-2) Band Neutrophils 0 % (0-8) Platelet Estimate Decreased L Platelet Morphology Normal Sodium Level 143 MMOL/L (136-145) Potassium Level 4.2 MMOL/L (3.5-5.1) Chloride Level 103 MMOL/L (98-107) Carbon Dioxide Level 33 MMOL/L (21-32) H Anion Gap 7 mmol/L (5-15) Blood Urea Nitrogen 99 mg/dL (7-18) H Creatinine 10.5 MG/DL (0.55-1.30) H Estimat Glomerular Filtration Rate 6.1 mL/min (>60) Glucose Level 81 MG/DL (74-106) Calcium Level 8.5 MG/DL (8.5-10.1) Phosphorus Level 10.1 MG/DL (2.5-4.9) H Magnesium Level 2.4 MG/DL (1.8-2.4) Troponin I 0.180 ng/mL (0.000-0.056) C-Reactive Protein, Quantitative 2.8 mg/dL (0.00-0.90) H Yimi Luevano MD Jul 18, 2018 15:43
[2018-07-18 16:00] VITALS: BP 148/72
[2018-07-18 20:00] VITALS: BP 150/70
[2018-07-19] VITALS: BP 139/60
[2018-07-19 04:00] VITALS: BP 148/55
[2018-07-19 05:29] LABS: HEMATOCRIT 27.4 % (42.0-52.0); HEMOGLOBIN 8.9 G/DL (14.2-18.0); MEAN CORPUSCULAR VOLUME 96 FL (80-99); PLATELET COUNT 78 K/UL (150-450); RED BLOOD COUNT 2.86 M/UL (4.70-6.10); RED CELL DISTRIBUTION WIDTH 16.8 % (11.6-14.8); WHITE BLOOD COUNT 5.6 K/UL (4.8-10.8)
[2018-07-19 06:03] LABS: ALANINE AMINOTRANSFERASE 28 U/L (12-78); ALBUMIN 3.1 G/DL (3.4-5.0); ALBUMIN/GLOBULIN RATIO 0.8 (1.0-2.7); ALKALINE PHOSPHATASE 116 U/L (46-116); ANION GAP 8 mmol/L (5-15); ASPARTATE AMINO TRANSFERASE 20 U/L (15-37); BILIRUBIN,TOTAL 0.5 MG/DL (0.2-1.0); BLOOD UREA NITROGEN 66 mg/dL (7-18); CALCIUM 8.6 MG/DL (8.5-10.1); CARBON DIOXIDE 30 MMOL/L (21-32); CHLORIDE 102 MMOL/L (98-107); PHOSPHORUS 7.1 MG/DL (2.5-4.9); POTASSIUM 3.7 MMOL/L (3.5-5.1); SODIUM 140 MMOL/L (136-145)
[2018-07-19] MEDS: NovoLOG Insulin Flexpen SUBQ SCH ×4 (06:30→21:00)
[2018-07-19 08:00] VITALS: BP 164/68
[2018-07-19] MEDS ORDERED: Lexiscan 0.4mg/5ml syringe IV SCH (08:00)
[2018-07-19] MEDS: Renvela 2400 mg pkt ORAL SCH ×3 (08:42→18:00)
[2018-07-19] MEDS: Docusate 100mg cap ORAL SCH ×3 (08:42→18:00)
--- NOTE | 2018-07-19 08:57 | General Progress Note ---
Assessment/Plan Assessment/Plan # Pancytopenia potnetially reactive process versus meds related or related to bone marrow process, hepatitis and hiv both reviewed and are negative, has been acute onset since admission --> us of the abd shows spenomegaly --> at this time, does not need a bone marrow biopsy --> cbc has been reviewed daily # Anemia of chronic disease has been evaluated and reviewed, does have evidence of iron deficiency, has been given iron once d/c --> po iron once discharged --> ok for epogen, ok to continue --> on HD prn # Sharp chest pain shortness of breath --> ddx: ACS vs. CHF vs. pneumonia vs. gastritis/GERD vs pneumothorax versus fluid overload/end-stage renal disease --> nephrology consulted # AZAM on CKD --> appreciate nephrology recs # ESRD as per nephro --> on hd # + cardiomeghaly with PVC Greatly appreciate consultation! Subjective Constitutional: Denies: no symptoms, chills, diaphoresis, fever, malaise, weakness, other HEENT: Denies: no symptoms, eye pain, blurred vision, tearing, double vision, ear pain, ear discharge, nose pain, nose congestion, throat pain, throat swelling, mouth pain, mouth swelling, other Cardiovascular: Denies: no symptoms, chest pain, edema, irregular heart rate, lightheadedness, palpitations, syncope, other Respiratory: Denies: no symptoms, cough, orthopnea, shortness of breath, SOB with excertion, SOB at rest, sputum, stridor, wheezing, other Gastrointestinal/Abdominal: Denies: no symptoms, abdomen distended, abdominal pain, black stools, tarry stools, blood in stool, constipated, diarrhea, difficulty swallowing, nausea, poor appetite, poor fluid intake, rectal bleeding , vomiting, other Genitourinary: Denies: no symptoms, burning, discharge, frequency, flank pain, hematuria, incontinence, pain, urgency, other Neurologic/Psychiatric: Denies: no symptoms, anxiety, depressed, emotional problems, headache, numbness, paresthesia, pre-existing deficit, seizure, tingling, tremors, weakness, other Endocrine: Denies: no symptoms, excessive sweating, flushing, intolerance to cold, intolerance to heat, increased hunger, increased thirst, increased urine, unexplained weight gain, unexplained weight loss, other Allergies: Coded Allergies: No Known Allergies (Verified , 11/24/07) UNABLE TO ASSESS (Unverified , 07/15/18) Subjective trying to get out of bed, labs reviewed Objective Last 24 Hour Vital Signs Date Time Temp Pulse Resp B/P (MAP) Pulse Ox O2 Delivery O2 Flow Rate FiO2 07/19/18 08:00 97.9 79 18 164/68 (100) 95 97.9 07/19/18 04:00 79 07/19/18 04:00 98.2 77 20 148/55 (86) 92 98.2 07/19/18 01:18 85 07/19/18 00:00 98.2 80 20 139/60 (86) 95 98.2 07/18/18 21:34 88 150/70 07/18/18 21:33 88 150/70 07/18/18 21:00 Nasal Cannula 2.0 07/18/18 20:00 93 Nasal Cannula 2.0 28 07/18/18 20:00 Nasal Cannula 2.0 28 07/18/18 20:00 98.2 88 20 150/70 (96) 95 98.2 07/18/18 20:00 82 07/18/18 19:30 84 20 Nasal Cannula 2.0 28 07/18/18 17:32 Nasal Cannula 2.0 28 07/18/18 16:00 71 07/18/18 16:00 97.0 76 20 148/72 (97) 94 97.0 07/18/18 15:54 Nasal Cannula 2.0 28 07/18/18 15:54 70 20 Nasal Cannula 2.0 28 07/18/18 15:54 92 Nasal Cannula 2.0 28 07/18/18 13:20 Nasal Cannula 2.0 28 07/18/18 12:00 97.3 68 20 144/65 (91) 96 97.3 07/18/18 12:00 70 07/18/18 09:00 Nasal Cannula 2.0 Intake and Output 07/18/18 07/19/18 19:00 07:00 Intake Total 480 ml 0 ml Output Total 2100 ml 210 ml Balance -1620 ml -210 ml Intake Oral 480 ml 0 ml Output Urine Total 210 ml Hemodialysis UF 2100 ml Laboratory Tests 07/19/18 05:05: White Blood Count 5.6, Red Blood Count 2.86L, Hemoglobin 8.9L, Hematocrit 27.4L , Mean Corpuscular Volume 96, Mean Corpuscular Hemoglobin 31.2H, Mean Corpuscular Hemoglobin Concent 32.6, Red Cell Distribution Width 16.8H, Platelet Count 78L, Mean Platelet Volume 7.6, Neutrophils (%) (Auto) , Lymphocytes (%) (Auto) , Monocytes (%) (Auto) , Eosinophils (%) (Auto) , Basophils (%) (Auto) , Differential Total Cells Counted 100, Neutrophils % ( Manual) 91H, Lymphocytes % (Manual) 3L, Monocytes % (Manual) 6, Eosinophils % ( Manual) 0, Basophils % (Manual) 0, Band Neutrophils 0, Platelet Estimate DecreasedL, Platelet Morphology Normal, Anisocytosis 1+, Sodium Level 140, Potassium Level 3.7, Chloride Level 102, Carbon Dioxide Level 30, Anion Gap 8, Blood Urea Nitrogen 66H, Creatinine 8.0H, Estimat Glomerular Filtration Rate 8.2 , Glucose Level 110H, Uric Acid 4.3, Calcium Level 8.6, Phosphorus Level 7.1H, Magnesium Level 2.2, Total Bilirubin 0.5, Aspartate Amino Transf (AST/SGOT) 20, Alanine Aminotransferase (ALT/SGPT) 28, Alkaline Phosphatase 116, Pro-B-Type Natriuretic Peptide 90605N, Total Protein 7.1, Albumin 3.1L, Globulin 4.0, Albumin/Globulin Ratio 0.8L Height (Feet): 5 Height (Inches): 8.00 Weight (Pounds): 215 General Appearance: no apparent distress EENT: TMs normal Neck: normal inspection Cardiovascular: regular rhythm Respiratory/Chest: normal breath sounds Abdomen: non tender Extremities: non-tender Edema: 1+ Leg (L), 1+ Leg (R) Neurologic: alert Skin: warm/dry Virgil Ward MD Jul 19, 2018 08:57
--- NOTE | 2018-07-19 10:48 | Nephrology Progress Note ---
Assessment/Plan Problem List: (1) ESRD (end stage renal disease) on dialysis (2) Hyperkalemia (3) CHF (congestive heart failure) (4) Anemia in chronic kidney disease (CKD) Assessment ESRD has permacath hyperkalemia Shortness of breath, CHF Encephalopathy condition: 1) ESRD (end stage renal disease) on dialysis (2) Anemia in chronic kidney disease (CKD) (3) Hypertensive kidney disease (4) Encephalopathy (5) DM (6) Hyperlipemia Plan Dialysed 07/18 next 07/20 Continue dialysis as needed optimize cardiac status 2 D echo adjust BP meds Anemia work up : ? transfusion if needed adjust BS meds phos binders st eval per orders Subjective ROS Limited/Unobtainable: No Constitutional: Reports: malaise Objective Objective Last 24 Hour Vital Signs Date Time Temp Pulse Resp B/P (MAP) Pulse Ox O2 Delivery O2 Flow Rate FiO2 07/19/18 09:00 Nasal Cannula 2.0 07/19/18 08:00 79 07/19/18 08:00 97.9 79 18 164/68 (100) 95 97.9 07/19/18 04:00 79 07/19/18 04:00 98.2 77 20 148/55 (86) 92 98.2 07/19/18 01:18 85 07/19/18 00:00 98.2 80 20 139/60 (86) 95 98.2 07/18/18 21:34 88 150/70 07/18/18 21:33 88 150/70 07/18/18 21:00 Nasal Cannula 2.0 07/18/18 20:00 93 Nasal Cannula 2.0 28 07/18/18 20:00 Nasal Cannula 2.0 28 07/18/18 20:00 98.2 88 20 150/70 (96) 95 98.2 07/18/18 20:00 82 07/18/18 19:30 84 20 Nasal Cannula 2.0 28 07/18/18 17:32 Nasal Cannula 2.0 28 07/18/18 16:00 71 07/18/18 16:00 97.0 76 20 148/72 (97) 94 97.0 07/18/18 15:54 Nasal Cannula 2.0 28 07/18/18 15:54 70 20 Nasal Cannula 2.0 28 07/18/18 15:54 92 Nasal Cannula 2.0 28 07/18/18 13:20 Nasal Cannula 2.0 28 07/18/18 12:00 97.3 68 20 144/65 (91) 96 97.3 07/18/18 12:00 70 Intake and Output 07/18/18 07/19/18 19:00 07:00 Intake Total 480 ml 0 ml Output Total 2100 ml 210 ml Balance -1620 ml -210 ml Intake Oral 480 ml 0 ml Output Urine Total 210 ml Hemodialysis UF 2100 ml Laboratory Tests 07/19/18 05:05: White Blood Count 5.6, Red Blood Count 2.86L, Hemoglobin 8.9L, Hematocrit 27.4L , Mean Corpuscular Volume 96, Mean Corpuscular Hemoglobin 31.2H, Mean Corpuscular Hemoglobin Concent 32.6, Red Cell Distribution Width 16.8H, Platelet Count 78L, Mean Platelet Volume 7.6, Neutrophils (%) (Auto) , Lymphocytes (%) (Auto) , Monocytes (%) (Auto) , Eosinophils (%) (Auto) , Basophils (%) (Auto) , Differential Total Cells Counted 100, Neutrophils % ( Manual) 91H, Lymphocytes % (Manual) 3L, Monocytes % (Manual) 6, Eosinophils % ( Manual) 0, Basophils % (Manual) 0, Band Neutrophils 0, Platelet Estimate DecreasedL, Platelet Morphology Normal, Anisocytosis 1+, Sodium Level 140, Potassium Level 3.7, Chloride Level 102, Carbon Dioxide Level 30, Anion Gap 8, Blood Urea Nitrogen 66H, Creatinine 8.0H, Estimat Glomerular Filtration Rate 8.2 , Glucose Level 110H, Uric Acid 4.3, Calcium Level 8.6, Phosphorus Level 7.1H, Magnesium Level 2.2, Total Bilirubin 0.5, Aspartate Amino Transf (AST/SGOT) 20, Alanine Aminotransferase (ALT/SGPT) 28, Alkaline Phosphatase 116, Pro-B-Type Natriuretic Peptide 66694M, Total Protein 7.1, Albumin 3.1L, Globulin 4.0, Albumin/Globulin Ratio 0.8L Height (Feet): 5 Height (Inches): 8.00 Weight (Pounds): 215 General Appearance: no apparent distress Cardiovascular: normal rate Respiratory/Chest: decreased breath sounds Abdomen: soft Objective no change Mirza Conde MD Jul 19, 2018 10:47
--- NOTE | 2018-07-19 11:12 | General Progress Note ---
Assessment/Plan Problem List: (1) Encephalopathy due to metabolic factor or toxin SNOMED: 219032252 Status: unchanged Assessment/Plan seroquel 100mg tid the pt lack capacity to make decisions. Subjective Date patient seen: Jul 19, 2018 Neurologic/Psychiatric: Reports: anxiety, emotional problems Allergies: Coded Allergies: No Known Allergies (Verified , 11/24/07) UNABLE TO ASSESS (Unverified , 07/15/18) Subjective the pt is agitated and confused. Objective Last 24 Hour Vital Signs Date Time Temp Pulse Resp B/P (MAP) Pulse Ox O2 Delivery O2 Flow Rate FiO2 07/19/18 09:00 Nasal Cannula 2.0 07/19/18 08:00 79 07/19/18 08:00 97.9 79 18 164/68 (100) 95 97.9 07/19/18 04:00 79 07/19/18 04:00 98.2 77 20 148/55 (86) 92 98.2 07/19/18 01:18 85 07/19/18 00:00 98.2 80 20 139/60 (86) 95 98.2 07/18/18 21:34 88 150/70 07/18/18 21:33 88 150/70 07/18/18 21:00 Nasal Cannula 2.0 07/18/18 20:00 93 Nasal Cannula 2.0 28 07/18/18 20:00 Nasal Cannula 2.0 28 07/18/18 20:00 98.2 88 20 150/70 (96) 95 98.2 07/18/18 20:00 82 07/18/18 19:30 84 20 Nasal Cannula 2.0 28 07/18/18 17:32 Nasal Cannula 2.0 28 07/18/18 16:00 71 07/18/18 16:00 97.0 76 20 148/72 (97) 94 97.0 07/18/18 15:54 Nasal Cannula 2.0 28 07/18/18 15:54 70 20 Nasal Cannula 2.0 28 07/18/18 15:54 92 Nasal Cannula 2.0 28 07/18/18 13:20 Nasal Cannula 2.0 28 07/18/18 12:00 97.3 68 20 144/65 (91) 96 97.3 07/18/18 12:00 70 Intake and Output 07/18/18 07/19/18 19:00 07:00 Intake Total 480 ml 0 ml Output Total 2100 ml 210 ml Balance -1620 ml -210 ml Intake Oral 480 ml 0 ml Output Urine Total 210 ml Hemodialysis UF 2100 ml Laboratory Tests 07/19/18 05:05: White Blood Count 5.6, Red Blood Count 2.86L, Hemoglobin 8.9L, Hematocrit 27.4L , Mean Corpuscular Volume 96, Mean Corpuscular Hemoglobin 31.2H, Mean Corpuscular Hemoglobin Concent 32.6, Red Cell Distribution Width 16.8H, Platelet Count 78L, Mean Platelet Volume 7.6, Neutrophils (%) (Auto) , Lymphocytes (%) (Auto) , Monocytes (%) (Auto) , Eosinophils (%) (Auto) , Basophils (%) (Auto) , Differential Total Cells Counted 100, Neutrophils % ( Manual) 91H, Lymphocytes % (Manual) 3L, Monocytes % (Manual) 6, Eosinophils % ( Manual) 0, Basophils % (Manual) 0, Band Neutrophils 0, Platelet Estimate DecreasedL, Platelet Morphology Normal, Anisocytosis 1+, Sodium Level 140, Potassium Level 3.7, Chloride Level 102, Carbon Dioxide Level 30, Anion Gap 8, Blood Urea Nitrogen 66H, Creatinine 8.0H, Estimat Glomerular Filtration Rate 8.2 , Glucose Level 110H, Uric Acid 4.3, Calcium Level 8.6, Phosphorus Level 7.1H, Magnesium Level 2.2, Total Bilirubin 0.5, Aspartate Amino Transf (AST/SGOT) 20, Alanine Aminotransferase (ALT/SGPT) 28, Alkaline Phosphatase 116, Pro-B-Type Natriuretic Peptide 94533I, Total Protein 7.1, Albumin 3.1L, Globulin 4.0, Albumin/Globulin Ratio 0.8L Height (Feet): 5 Height (Inches): 8.00 Weight (Pounds): 215 General Appearance: no apparent distress, alert, confused, agitated Tara Ward MD Jul 19, 2018 11:12
--- NOTE | 2018-07-19 11:28 | Pulmonology Progress Note ---
Assessment/Plan Problems: (1) Encephalopathy (2) Anemia in chronic kidney disease (CKD) (3) ESRD (end stage renal disease) on dialysis (4) HTN (hypertension) (5) Diabetes mellitus Assessment/Plan MRI of brain neurology psych evaluation sliding scale try to dc restrains dvt prophylaxis. Subjective ROS Limited/Unobtainable: No Constitutional: Reports: no symptoms HEENT: Repors: no symptoms Respiratory: Reports: no symptoms Cardiovascular: Reports: no symptoms Allergies: Coded Allergies: No Known Allergies (Verified , 11/24/07) UNABLE TO ASSESS (Unverified , 07/15/18) Objective Last 24 Hour Vital Signs Date Time Temp Pulse Resp B/P (MAP) Pulse Ox O2 Delivery O2 Flow Rate FiO2 07/19/18 09:00 Nasal Cannula 2.0 07/19/18 08:00 79 07/19/18 08:00 97.9 79 18 164/68 (100) 95 97.9 07/19/18 04:00 79 07/19/18 04:00 98.2 77 20 148/55 (86) 92 98.2 07/19/18 01:18 85 07/19/18 00:00 98.2 80 20 139/60 (86) 95 98.2 07/18/18 21:34 88 150/70 07/18/18 21:33 88 150/70 07/18/18 21:00 Nasal Cannula 2.0 07/18/18 20:00 93 Nasal Cannula 2.0 28 07/18/18 20:00 Nasal Cannula 2.0 28 07/18/18 20:00 98.2 88 20 150/70 (96) 95 98.2 07/18/18 20:00 82 07/18/18 19:30 84 20 Nasal Cannula 2.0 28 07/18/18 17:32 Nasal Cannula 2.0 28 07/18/18 16:00 71 07/18/18 16:00 97.0 76 20 148/72 (97) 94 97.0 07/18/18 15:54 Nasal Cannula 2.0 28 07/18/18 15:54 70 20 Nasal Cannula 2.0 28 07/18/18 15:54 92 Nasal Cannula 2.0 28 07/18/18 13:20 Nasal Cannula 2.0 28 07/18/18 12:00 97.3 68 20 144/65 (91) 96 97.3 07/18/18 12:00 70 Intake and Output 07/18/18 07/19/18 19:00 07:00 Intake Total 480 ml 0 ml Output Total 2100 ml 210 ml Balance -1620 ml -210 ml Intake Oral 480 ml 0 ml Output Urine Total 210 ml Hemodialysis UF 2100 ml General Appearance: WD/WN HEENT: normocephalic, atraumatic Respiratory/Chest: chest wall non-tender, lungs clear Cardiovascular: normal peripheral pulses, regularly irregular Abdomen: normal bowel sounds, soft, non tender Genitourinary: normal external genitalia Extremities: no clubbing Skin: no rash Laboratory Tests 07/19/18 05:05: White Blood Count 5.6, Red Blood Count 2.86L, Hemoglobin 8.9L, Hematocrit 27.4L , Mean Corpuscular Volume 96, Mean Corpuscular Hemoglobin 31.2H, Mean Corpuscular Hemoglobin Concent 32.6, Red Cell Distribution Width 16.8H, Platelet Count 78L, Mean Platelet Volume 7.6, Neutrophils (%) (Auto) , Lymphocytes (%) (Auto) , Monocytes (%) (Auto) , Eosinophils (%) (Auto) , Basophils (%) (Auto) , Differential Total Cells Counted 100, Neutrophils % ( Manual) 91H, Lymphocytes % (Manual) 3L, Monocytes % (Manual) 6, Eosinophils % ( Manual) 0, Basophils % (Manual) 0, Band Neutrophils 0, Platelet Estimate DecreasedL, Platelet Morphology Normal, Anisocytosis 1+, Sodium Level 140, Potassium Level 3.7, Chloride Level 102, Carbon Dioxide Level 30, Anion Gap 8, Blood Urea Nitrogen 66H, Creatinine 8.0H, Estimat Glomerular Filtration Rate 8.2 , Glucose Level 110H, Uric Acid 4.3, Calcium Level 8.6, Phosphorus Level 7.1H, Magnesium Level 2.2, Total Bilirubin 0.5, Aspartate Amino Transf (AST/SGOT) 20, Alanine Aminotransferase (ALT/SGPT) 28, Alkaline Phosphatase 116, Pro-B-Type Natriuretic Peptide 70146T, Total Protein 7.1, Albumin 3.1L, Globulin 4.0, Albumin/Globulin Ratio 0.8L Current Medications Medications (Trade) Dose Ordered Sig/Praveen Route PRN Reason Start Time Stop Time Status Last Admin Dose Admin Acetaminophen (Tylenol) 650 mg Q4H PRN ORAL fever 07/16/18 18:00 08/15/18 17:59 Albuterol/ Ipratropium (Albuterol/ Ipratropium) 3 ml Q6H PRN HHN dyspnea 07/16/18 18:00 07/21/18 17:59 Clonidine HCl (Catapres Tab) 0.1 mg Q4H PRN ORAL for sbp more than 160 07/16/18 18:00 08/15/18 17:59 Dextrose (Dextrose 50%) 25 ml Q1H PRN IV Hypoglycemia 07/16/18 18:00 Dextrose (Dextrose 50%) 50 ml Q1H PRN IV hypoglycemia 07/16/18 18:00 Docusate Sodium (Colace) 100 mg TID ORAL 07/16/18 18:00 08/15/18 10:59 07/19/18 08:42 Epoetin Yao (Procrit (for ESRD on dialysis)) 10,000 units [id number]-[id number]-[id number] SUBQ 07/16/18 21:00 08/15/18 20:59 07/16/18 20:18 Famotidine (Pepcid) 20 mg DAILY ORAL 07/17/18 09:00 08/16/18 08:59 07/19/18 08:42 Haloperidol Lactate (Haldol) 5 mg Q6H PRN IM Agitation 07/17/18 15:30 08/16/18 15:29 07/18/18 10:19 Insulin Aspart (NovoLOG) BEFORE MEALS AND HS SUBQ 07/17/18 21:00 08/16/18 20:59 07/18/18 21:32 Iron Sucrose 100 mg/Sodium Chloride 55 ml @ 200 mls/hr BEDTIME IV 07/16/18 21:00 07/25/18 21:17 07/18/18 21:32 Labetalol HCl (Normodyne) 100 mg EVERY 8 HOURS ORAL 07/16/18 22:00 08/15/18 13:59 07/18/18 21:33 Morphine Sulfate (Morphine Sulfate) 1 mg Q4H PRN IVP For Pain 07/16/18 18:00 07/23/18 17:59 07/17/18 12:55 Ondansetron HCl (Zofran) 4 mg Q6H PRN IVP Nausea & Vomiting 07/16/18 18:00 08/15/18 17:59 Polyethylene Glycol (Miralax) 17 gm HSPRN PRN ORAL Constipation 07/16/18 21:00 08/15/18 20:59 Quetiapine Fumarate (SEROquel) 25 mg Q6H PRN ORAL For Anxiety 07/16/18 18:00 08/15/18 17:59 Quetiapine Fumarate (SEROquel) 100 mg Q8HR ORAL 07/16/18 22:00 08/15/18 13:59 07/18/18 21:33 Regadenoson (Lexiscan) 0.4 mg ONCE IV 07/19/18 08:00 07/20/18 07:59 Sevelamer Carbonate (Renvela) 2,400 mg THREE TIMES A DAY ORAL 07/16/18 18:00 08/15/18 12:59 07/19/18 08:42 Zolpidem Tartrate (Ambien) 5 mg HSPRN PRN ORAL Insomnia 07/16/18 21:00 07/23/18 20:59 Denise Rogers MD Jul 19, 2018 11:28
[2018-07-19 11:55] VITALS: BP 148/61
--- NOTE | 2018-07-19 12:03 | Cardiology Progress Note ---
Assessment/Plan Assessment/Plan Assessment: 1) ESRD (end stage renal disease) on dialysis (2) Anemia in chronic kidney disease (CKD) (3) Hypertensive kidney disease (4) Encephalopathy (5) DM (6) Hyperlipemia Plan: Maintain hemodialysis Echocardiogram --> preserved systolic function, mild valvular regurgitation, mild pulmonary hypertension, elevated filling pressures Stress text next week to evaluate chest pain given multiple cardiac risk factors and NSVT Aspirin Statin Serial EKG/Troponin No indication for troponin at this time. No indication for urgent cardiac cath LE ultrasound PRBC transfusion Subjective Cardiovascular: Reports: no symptoms Respiratory: Reports: no symptoms Gastrointestinal/Abdominal: Reports: no symptoms Subjective No acute events, s/p PRBC transfusion, vitals stable, troponin stable, Echo normal LV function Unable to consent for stress test, obtunded Objective Last 24 Hour Vital Signs Date Time Temp Pulse Resp B/P (MAP) Pulse Ox O2 Delivery O2 Flow Rate FiO2 07/19/18 11:55 98.0 78 20 148/61 (90) 98 98.0 07/19/18 09:00 Nasal Cannula 2.0 07/19/18 08:00 79 07/19/18 08:00 97.9 79 18 164/68 (100) 95 97.9 07/19/18 04:00 79 07/19/18 04:00 98.2 77 20 148/55 (86) 92 98.2 07/19/18 01:18 85 07/19/18 00:00 98.2 80 20 139/60 (86) 95 98.2 07/18/18 21:34 88 150/70 07/18/18 21:33 88 150/70 07/18/18 21:00 Nasal Cannula 2.0 07/18/18 20:00 93 Nasal Cannula 2.0 28 07/18/18 20:00 Nasal Cannula 2.0 28 07/18/18 20:00 98.2 88 20 150/70 (96) 95 98.2 07/18/18 20:00 82 07/18/18 19:30 84 20 Nasal Cannula 2.0 28 07/18/18 17:32 Nasal Cannula 2.0 28 07/18/18 16:00 71 07/18/18 16:00 97.0 76 20 148/72 (97) 94 97.0 07/18/18 15:54 Nasal Cannula 2.0 28 07/18/18 15:54 70 20 Nasal Cannula 2.0 28 07/18/18 15:54 92 Nasal Cannula 2.0 28 07/18/18 13:20 Nasal Cannula 2.0 28 General Appearance: no apparent distress, mild distress, lethargic Neck: non-tender, normal alignment Rhythm: NSR Cardiovascular: normal peripheral pulses, normal rate Respiratory/Chest: chest wall non-tender, lungs clear Abdomen: normal bowel sounds, non tender Extremities: normal range of motion, non-tender 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, motor weakness, sensory deficit, disoriented Intake and Output 07/18/18 07/19/18 19:00 07:00 Intake Total 480 ml 0 ml Output Total 2100 ml 210 ml Balance -1620 ml -210 ml Intake Oral 480 ml 0 ml Output Urine Total 210 ml Hemodialysis UF 2100 ml Laboratory Tests Test 07/19/18 05:05 White Blood Count 5.6 K/UL (4.8-10.8) Red Blood Count 2.86 M/UL (4.70-6.10) L Hemoglobin 8.9 G/DL (14.2-18.0) L Hematocrit 27.4 % (42.0-52.0) L Mean Corpuscular Volume 96 FL (80-99) Mean Corpuscular Hemoglobin 31.2 PG (27.0-31.0) H Mean Corpuscular Hemoglobin Concent 32.6 G/DL (32.0-36.0) Red Cell Distribution Width 16.8 % (11.6-14.8) H Platelet Count 78 K/UL (150-450) L Mean Platelet Volume 7.6 FL (6.5-10.1) Neutrophils (%) (Auto) % (45.0-75.0) Lymphocytes (%) (Auto) % (20.0-45.0) Monocytes (%) (Auto) % (1.0-10.0) Eosinophils (%) (Auto) % (0.0-3.0) Basophils (%) (Auto) % (0.0-2.0) Differential Total Cells Counted 100 Neutrophils % (Manual) 91 % (45-75) H Lymphocytes % (Manual) 3 % (20-45) L Monocytes % (Manual) 6 % (1-10) Eosinophils % (Manual) 0 % (0-3) Basophils % (Manual) 0 % (0-2) Band Neutrophils 0 % (0-8) Platelet Estimate Decreased L Platelet Morphology Normal Anisocytosis 1+ Sodium Level 140 MMOL/L (136-145) Potassium Level 3.7 MMOL/L (3.5-5.1) Chloride Level 102 MMOL/L (98-107) Carbon Dioxide Level 30 MMOL/L (21-32) Anion Gap 8 mmol/L (5-15) Blood Urea Nitrogen 66 mg/dL (7-18) H Creatinine 8.0 MG/DL (0.55-1.30) H Estimat Glomerular Filtration Rate 8.2 mL/min (>60) Glucose Level 110 MG/DL (74-106) H Uric Acid 4.3 MG/DL (2.6-7.2) Calcium Level 8.6 MG/DL (8.5-10.1) Phosphorus Level 7.1 MG/DL (2.5-4.9) H Magnesium Level 2.2 MG/DL (1.8-2.4) Total Bilirubin 0.5 MG/DL (0.2-1.0) Aspartate Amino Transf (AST/SGOT) 20 U/L (15-37) Alanine Aminotransferase (ALT/SGPT) 28 U/L (12-78) Alkaline Phosphatase 116 U/L (46-116) Pro-B-Type Natriuretic Peptide 80789 pg/mL (0-125) H Total Protein 7.1 G/DL (6.4-8.2) Albumin 3.1 G/DL (3.4-5.0) L Globulin 4.0 g/dL Albumin/Globulin Ratio 0.8 (1.0-2.7) L Yimi Luevano MD Jul 19, 2018 12:03
[2018-07-19] MEDS: Haloperidol 5mg/ml Inj IM PRN (14:59)
[2018-07-19 16:00] VITALS: BP 156/62
[2018-07-19 20:00] VITALS: BP 164/66
[2018-07-19] MEDS: Epogen (for ESRD on dialysis) SUBQ SCH (20:58)
[2018-07-19] MEDS ORDERED: Lexiscan 0.4mg/5ml syringe IV ONE (22:30)
--- NOTE | 2018-07-19 23:56 | General Progress Note ---
Assessment/Plan Problem List: (1) Hyperkalemia ICD Codes: E87.5 - Hyperkalemia SNOMED: 10780328 (2) Acute on chronic diastolic (congestive) heart failure ICD Codes: I50.33 - Acute on chronic diastolic (congestive) heart failure SNOMED: 66204711, 587198405 (3) Acute metabolic encephalopathy ICD Codes: G93.41 - Metabolic encephalopathy SNOMED: 88925410, 178447745 (4) ESRD (end stage renal disease) on dialysis ICD Codes: N18.6 - End stage renal disease; Z99.2 - Dependence on renal dialysis SNOMED: 030228784 (5) HTN (hypertension) ICD Codes: I10 - Essential (primary) hypertension SNOMED: 40946259 (6) Hypertensive heart and renal disease ICD Codes: I13.10 - Hypertensive heart and chronic kidney disease without heart failure, with stage 1 through stage 4 chronic kidney disease, or unspecified chronic kidney disease SNOMED: 69877600 (7) Anemia in ESRD (end-stage renal disease) ICD Codes: N18.6 - End stage renal disease; D63.1 - Anemia in chronic kidney disease SNOMED: 80376668, 434551438 (8) Dementia with psychosis ICD Codes: F03.91 - Unspecified dementia with behavioral disturbance SNOMED: 88403016, 62802714 (9) Pancytopenia ICD Codes: D61.818 - Other pancytopenia SNOMED: 826011444 Status: stable Assessment/Plan # Severe hyperkalemia - K 8.4 on admit, now improved s/p HD # Metabolic acidosis # ESRD on HD - Transferred out of ICU on 07/17/18 - Pulm/critical care consulted - Renal consulted - cont HD per renal - Cont renvela, nephrovite # Acute on chronic diastolic heart failure - Cardiology consulted - Check TTE --> EF wnl - HD for volume removal # NSTEMI type 2 - likely demand ischemia in setting of volume overload - Cardiology consulted - Trend trop/EKG - TTE reviewed and showed normal EF - Check nuclear stress test # Acute metabolic encephalopathy - likely in setting of metabolic derangements from renal dysfcn # Dementia with psychosis - Psych consulted - ctm # HTN # Hypertensive heart and renal disease - Cont labetolol # Pancytopenia # Anemia in ESRD # Thrombocytopenia # Leukopenia - Heme/onc consulted - EPO per renal - IV venofer - s/p 1U pRBC on 07/18/18 - ctm CBC DVT Prophylaxis: SCD, HSQ Code Status: Full Hospital Classification Declaration: Based on this initial evaluation, and depending on the patient's clinical course, I anticipate that this patient will require hospitalization for 1-2 days for volume overload, severe hyperK and close respiratory/hemodynamic monitoring. Disposition: Once the patient is stable to leave the hospital, I anticipate the patient will likely be discharged to the following environment: back to SNF I spent 40 minutes on this patient's case, and 25 minutes were dedicated to counseling and/or care coordination. Discussed with patient/family, nursing staff, SW/CM, renal, cardiology regarding clinical status, treatment course, and disposition planning. Time of note may not reflect time of encounter. Subjective Date patient seen: Jul 19, 2018 Time patient seen: 12:00 ROS Limited/Unobtainable: Yes Allergies: Coded Allergies: No Known Allergies (Verified , 11/24/07) UNABLE TO ASSESS (Unverified , 07/15/18) Subjective No acute o/n events Cont to be intermittently agitated requiring restraints Awaiting nuc stress test. No family available to consent so 2 physician consent to be done More awake, alert, confused Objective Last 24 Hour Vital Signs Date Time Temp Pulse Resp B/P (MAP) Pulse Ox O2 Delivery O2 Flow Rate FiO2 07/19/18 21:00 Nasal Cannula 2.0 07/19/18 20:59 73 164/66 07/19/18 20:00 73 07/19/18 20:00 98.0 73 20 164/66 (98) 96 98.0 07/19/18 19:53 94 Venturi Mask 14.0 55 07/19/18 19:53 Venturi Mask 14.0 55 07/19/18 19:51 74 25 Venturi Mask 14.0 55 07/19/18 16:00 82 07/19/18 16:00 98.1 79 18 156/62 (93) 96 98.1 07/19/18 14:59 76 148/61 07/19/18 12:00 76 07/19/18 11:55 98.0 78 20 148/61 (90) 98 98.0 07/19/18 09:45 96 Nasal Cannula 2.0 28 07/19/18 09:45 74 20 Nasal Cannula 2.0 28 07/19/18 09:45 Nasal Cannula 2.0 28 07/19/18 09:00 Nasal Cannula 2.0 07/19/18 08:00 79 07/19/18 08:00 97.9 79 18 164/68 (100) 95 97.9 07/19/18 04:00 79 07/19/18 04:00 98.2 77 20 148/55 (86) 92 98.2 07/19/18 01:18 85 07/19/18 00:00 98.2 80 20 139/60 (86) 95 98.2 Intake and Output 07/18/18 07/19/18 19:00 07:00 Intake Total 480 ml 0 ml Output Total 2100 ml 210 ml Balance -1620 ml -210 ml Intake Oral 480 ml 0 ml Output Urine Total 210 ml Hemodialysis UF 2100 ml Laboratory Tests 07/19/18 05:05: White Blood Count 5.6, Red Blood Count 2.86L, Hemoglobin 8.9L, Hematocrit 27.4L , Mean Corpuscular Volume 96, Mean Corpuscular Hemoglobin 31.2H, Mean Corpuscular Hemoglobin Concent 32.6, Red Cell Distribution Width 16.8H, Platelet Count 78L, Mean Platelet Volume 7.6, Neutrophils (%) (Auto) , Lymphocytes (%) (Auto) , Monocytes (%) (Auto) , Eosinophils (%) (Auto) , Basophils (%) (Auto) , Differential Total Cells Counted 100, Neutrophils % ( Manual) 91H, Lymphocytes % (Manual) 3L, Monocytes % (Manual) 6, Eosinophils % ( Manual) 0, Basophils % (Manual) 0, Band Neutrophils 0, Platelet Estimate DecreasedL, Platelet Morphology Normal, Anisocytosis 1+, Sodium Level 140, Potassium Level 3.7, Chloride Level 102, Carbon Dioxide Level 30, Anion Gap 8, Blood Urea Nitrogen 66H, Creatinine 8.0H, Estimat Glomerular Filtration Rate 8.2 , Glucose Level 110H, Uric Acid 4.3, Calcium Level 8.6, Phosphorus Level 7.1H, Magnesium Level 2.2, Total Bilirubin 0.5, Aspartate Amino Transf (AST/SGOT) 20, Alanine Aminotransferase (ALT/SGPT) 28, Alkaline Phosphatase 116, Pro-B-Type Natriuretic Peptide 97845W, Total Protein 7.1, Albumin 3.1L, Globulin 4.0, Albumin/Globulin Ratio 0.8L Height (Feet): 5 Height (Inches): 8.00 Weight (Pounds): 215 Objective General: alert, cooperative, no distress, appears stated age Head: normocephalic, without obvious abnormality, atraumatic Eyes: conjunctivae/corneas clear. PERRL, EOM's intact Throat: lips, mucosa, and tongue normal. MMM Neck: supple, symmetrical, trachea midline, and no JVD Lungs: clear to auscultation bilaterally Heart: regular rate and rhythm, S1, S2 normal, no murmur, click, rub or gallop Abdomen: soft, non-tender, non-distended, bowel sounds normal; no masses or organomegaly Extremities: extremities normal, atraumatic, no cyanosis or edema Pulses: 2+ and symmetric Skin: skin color, texture, turgor normal; no rashes or lesions Neurologic: grossly normal, no focal deficits Kamilla Padgett M.D. Jul 19, 2018 23:55
[2018-07-20] VITALS (19 sets, daily range): BP systolic 112–167; BP diastolic 36–124
[2018-07-20] MEDS ORDERED: Morphine Sulfate 2mg/ml Inj IVP PRN ×2 (02:00→08:15)
[2018-07-20] MEDS ORDERED: Haloperidol 5mg/ml Inj IM PRN ×2 (03:30→08:15)
[2018-07-20] MEDS ORDERED: NovoLOG Insulin Flexpen SUBQ SCH (06:30)
--- NOTE | 2018-07-20 06:46 | General Progress Note ---
Assessment/Plan Assessment/Plan # Pancytopenia potnetially reactive process versus meds related or related to bone marrow process, hepatitis and hiv both reviewed and are negative, has been acute onset since admission --> us of the abd shows spenomegaly, continues to persist --> at this time, does not need a bone marrow biopsy --> cbc has been reviewed daily # Anemia of chronic disease has been evaluated and reviewed, does have evidence of iron deficiency, has been given iron once d/c --> po iron once discharged --> ok for epogen, ok to continue --> appreciate renal recs --> on HD prn # Sharp chest pain shortness of breath --> ddx: ACS vs. CHF vs. pneumonia vs. gastritis/GERD vs pneumothorax versus fluid overload/end-stage renal disease --> renal consulted # AZAM on CKD --> appreciate renal recs # ESRD as per nephro --> on hd # + cardiomeghaly with PVC Greatly appreciate consultation! Subjective Constitutional: Denies: no symptoms, chills, diaphoresis, fever, malaise, weakness, other HEENT: Denies: no symptoms, eye pain, blurred vision, tearing, double vision, ear pain, ear discharge, nose pain, nose congestion, throat pain, throat swelling, mouth pain, mouth swelling, other Cardiovascular: Denies: no symptoms, chest pain, edema, irregular heart rate, lightheadedness, palpitations, syncope, other Respiratory: Denies: no symptoms, cough, orthopnea, shortness of breath, SOB with excertion, SOB at rest, sputum, stridor, wheezing, other Gastrointestinal/Abdominal: Denies: no symptoms, abdomen distended, abdominal pain, black stools, tarry stools, blood in stool, constipated, diarrhea, difficulty swallowing, nausea, poor appetite, poor fluid intake, rectal bleeding , vomiting, other Genitourinary: Denies: no symptoms, burning, discharge, frequency, flank pain, hematuria, incontinence, pain, urgency, other Neurologic/Psychiatric: Denies: no symptoms, anxiety, depressed, emotional problems, headache, numbness, paresthesia, pre-existing deficit, seizure, tingling, tremors, weakness, other Endocrine: Denies: no symptoms, excessive sweating, flushing, intolerance to cold, intolerance to heat, increased hunger, increased thirst, increased urine, unexplained weight gain, unexplained weight loss, other Hematologic/Lymphatic: Denies: no symptoms, anemia, easy bleeding, easy bruising, other Allergies: Coded Allergies: No Known Allergies (Verified , 11/24/07) UNABLE TO ASSESS (Unverified , 07/15/18) Subjective trying to get out of bed, has been very sleepy this am Objective Last 24 Hour Vital Signs Date Time Temp Pulse Resp B/P (MAP) Pulse Ox O2 Delivery O2 Flow Rate FiO2 07/20/18 06:00 72 123/62 07/20/18 04:00 72 07/20/18 04:00 97.5 70 17 123/62 (82) 100 97.5 07/20/18 04:00 Venturi Mask 12.0 07/20/18 00:00 97.3 17 17 137/43 (74) 98 97.3 07/20/18 00:00 63 07/20/18 00:00 Venturi Mask 15.0 07/19/18 21:00 Nasal Cannula 2.0 07/19/18 20:59 73 164/66 07/19/18 20:00 73 07/19/18 20:00 98.0 73 20 164/66 (98) 96 98.0 07/19/18 19:53 94 Venturi Mask 14.0 55 07/19/18 19:53 Venturi Mask 14.0 55 07/19/18 19:51 74 25 Venturi Mask 14.0 55 07/19/18 16:00 82 07/19/18 16:00 98.1 79 18 156/62 (93) 96 98.1 07/19/18 14:59 76 148/61 07/19/18 12:00 76 07/19/18 11:55 98.0 78 20 148/61 (90) 98 98.0 07/19/18 09:45 96 Nasal Cannula 2.0 28 07/19/18 09:45 74 20 Nasal Cannula 2.0 28 07/19/18 09:45 Nasal Cannula 2.0 28 07/19/18 09:00 Nasal Cannula 2.0 07/19/18 08:00 79 07/19/18 08:00 97.9 79 18 164/68 (100) 95 97.9 Intake and Output 07/19/18 07/20/18 19:00 07:00 Intake Total 0 ml Output Total 50 ml Balance -50 ml Intake Oral 0 ml Output Urine Total 50 ml # Voids 1 1 # Bowel Movements 2 Height (Feet): 5 Height (Inches): 8.00 Weight (Pounds): 217 General Appearance: no apparent distress EENT: TMs normal Neck: normal alignment Cardiovascular: regular rhythm Respiratory/Chest: lungs clear Abdomen: no organomegaly Extremities: normal range of motion Edema: mild edema Neurologic: alert Virgil Ward MD Jul 20, 2018 06:46
[2018-07-20 07:21] LABS: HEMATOCRIT 27.5 % (42.0-52.0); HEMOGLOBIN 8.6 G/DL (14.2-18.0); MEAN CORPUSCULAR VOLUME 97 FL (80-99); PLATELET COUNT 87 K/UL (150-450); RED BLOOD COUNT 2.83 M/UL (4.70-6.10); RED CELL DISTRIBUTION WIDTH 15.9 % (11.6-14.8); WHITE BLOOD COUNT 3.9 K/UL (4.8-10.8)
[2018-07-20 07:22] LABS: ANION GAP 9 mmol/L (5-15); BLOOD UREA NITROGEN 81 mg/dL (7-18); CALCIUM 8.3 MG/DL (8.5-10.1); CARBON DIOXIDE 32 MMOL/L (21-32); CHLORIDE 101 MMOL/L (98-107); POTASSIUM 4.2 MMOL/L (3.5-5.1); SODIUM 142 MMOL/L (136-145)
[2018-07-20 07:26] LABS: ALANINE AMINOTRANSFERASE 30 U/L (12-78); ALBUMIN 2.9 G/DL (3.4-5.0); ALBUMIN/GLOBULIN RATIO 0.7 (1.0-2.7); ALKALINE PHOSPHATASE 115 U/L (46-116); ASPARTATE AMINO TRANSFERASE 27 U/L (15-37); BILIRUBIN,TOTAL 0.4 MG/DL (0.2-1.0)
[2018-07-20] MEDS ORDERED: Albuterol/Ipratropium 3ml neb HHN PRN ×2 (08:15)
--- NOTE | 2018-07-20 08:57 | Diagnostic Imaging Report ---
Indication: Dyspnea Technique: One view of the chest Comparison: 07/15/2018 Findings: Increased opacity of the right lung base may reflect increased parenchymal infiltrate or pleural fluid. Pleural fluid versus thickening on the left is unchanged. Generalized interstitial congestion appears slightly worse. Heart is enlarged. Percutaneous aortic valve prosthesis, right chest permacath again demonstrated. Impression: Increased right basilar opacity, likely representing increased pleural fluid and/or parenchymal infiltrate, over 5 days Slightly worsening generalized interstitial edema Other stable findings as described
[2018-07-20] MEDS: Docusate 100mg cap ORAL SCH ×3 (09:00→18:00)
[2018-07-20] MEDS ORDERED: Docusate 100mg cap ORAL SCH (09:00)
[2018-07-20] MEDS: Renvela 2400 mg pkt ORAL SCH ×3 (09:00→18:00)
[2018-07-20] MEDS ORDERED: Renvela 2400 mg pkt ORAL SCH (09:00)
[2018-07-20] MEDS ORDERED: LORazepam Inj 2mg/ml 1ml IV PRN (09:30)
--- NOTE | 2018-07-20 09:43 | Pulmonolgy Critical Care Note ---
Critical Care - Asmt/Plan Problems: (1) Acute respiratory failure (2) Encephalopathy (3) Anemia in chronic kidney disease (CKD) (4) Dementia with psychosis (5) ESRD (end stage renal disease) on dialysis Respiratory: monitor respiratory rate, adjust FIO2, CXR Cardiac: continue to monitor HR/BP Renal: F/U I&O Infectious Disease: check cultures Gastrointestinal: start feedings Endocrine: monitor blood sugar Hematologic: monitor H/H, transfuse if hgb<8.5 Neurologic: PRN Ativan, PRN Morphine, keep patient comfortable Prophylaxis: Protonix, Heparin Disposition: keep in ICU Time Spent (Minutes): 40 Notes Reviewed: refrigeration manager, renal Discussed with: nurses, consultants, rn field case managermanager diabetes - Objective Last 24 Hour Vital Signs Date Time Temp Pulse Resp B/P (MAP) Pulse Ox O2 Delivery O2 Flow Rate FiO2 07/20/18 07:14 60 22 100 Facial 55 07/20/18 07:14 Bi-pap 60 07/20/18 07:14 100 Bi-pap 60 07/20/18 06:00 72 123/62 07/20/18 04:00 72 07/20/18 04:00 97.5 70 17 123/62 (82) 100 97.5 07/20/18 04:00 Venturi Mask 12.0 07/20/18 00:00 97.3 17 17 137/43 (74) 98 97.3 07/20/18 00:00 63 07/20/18 00:00 Venturi Mask 15.0 07/19/18 21:00 Nasal Cannula 2.0 07/19/18 20:59 73 164/66 07/19/18 20:00 73 07/19/18 20:00 98.0 73 20 164/66 (98) 96 98.0 07/19/18 19:53 94 Venturi Mask 14.0 55 07/19/18 19:53 Venturi Mask 14.0 55 07/19/18 19:51 74 25 Venturi Mask 14.0 55 07/19/18 16:00 82 07/19/18 16:00 98.1 79 18 156/62 (93) 96 98.1 07/19/18 14:59 76 148/61 07/19/18 12:00 76 07/19/18 11:55 98.0 78 20 148/61 (90) 98 98.0 07/19/18 09:45 96 Nasal Cannula 2.0 28 07/19/18 09:45 74 20 Nasal Cannula 2.0 28 07/19/18 09:45 Nasal Cannula 2.0 28 Status: obtunded Condition: critical HEENT: atraumatic Lungs: chest wall tender Heart: HR/BP unstable Abdomen: soft, active bowel sounds Extremities: no C/C/E Decubiti: location Accucheck: 82 Critical Care - Subjective ROS Limited/Unobtainable: No ICU Day: 1 Interval Events: pt became more lethargic, hypoxemic, went to respiratory failure and needed intubation. Condition: critical EKG Rhythm: Sinus Rhythm FI02: 55 Sputum Amount: None Tube Feeding Amount: 240 I&O: Intake and Output 07/19/18 07/20/18 19:00 07:00 Intake Total 0 ml Output Total 50 ml Balance -50 ml Intake Oral 0 ml Output Urine Total 50 ml # Voids 1 1 # Bowel Movements 2 CXR: bilateral infiltrate effusion Labs: Laboratory Tests Test 07/20/18 06:34 07/20/18 06:40 07/20/18 08:12 Arterial Blood pH 7.110 (7.350-7.450) 7.110 (7.350-7.450) Arterial Blood Partial Pressure CO2 92.5 mmHg (35.0-45.0) *H 98.8 mmHg (35.0-45.0) *H Arterial Blood Partial Pressure O2 98.3 mmHg (75.0-100.0) 140.6 mmHg (75.0-100.0) H Arterial Blood HCO3 29.1 mmol/L (22.0-26.0) H 30.8 mmol/L (22.0-26.0) H Arterial Blood Oxygen Saturation 94.9 % (92.0-98.0) 97.6 % (92.0-98.0) Arterial Blood Base Excess -1.4 0 Calvin Test Positive Positive White Blood Count 3.9 K/UL (4.8-10.8) L Red Blood Count 2.83 M/UL (4.70-6.10) L Hemoglobin 8.6 G/DL (14.2-18.0) L Hematocrit 27.5 % (42.0-52.0) L Mean Corpuscular Volume 97 FL (80-99) Mean Corpuscular Hemoglobin 30.5 PG (27.0-31.0) Mean Corpuscular Hemoglobin Concent 31.3 G/DL (32.0-36.0) L Red Cell Distribution Width 15.9 % (11.6-14.8) H Platelet Count 87 K/UL (150-450) L Mean Platelet Volume 7.5 FL (6.5-10.1) Neutrophils (%) (Auto) % (45.0-75.0) Lymphocytes (%) (Auto) % (20.0-45.0) Monocytes (%) (Auto) % (1.0-10.0) Eosinophils (%) (Auto) % (0.0-3.0) Basophils (%) (Auto) % (0.0-2.0) Differential Total Cells Counted 100 Neutrophils % (Manual) 81 % (45-75) H Lymphocytes % (Manual) 13 % (20-45) L Monocytes % (Manual) 4 % (1-10) Eosinophils % (Manual) 1 % (0-3) Basophils % (Manual) 1 % (0-2) Band Neutrophils 0 % (0-8) Platelet Estimate Decreased L Platelet Morphology Normal Hypochromasia 2+ Anisocytosis 1+ Sodium Level 142 MMOL/L (136-145) Potassium Level 4.2 MMOL/L (3.5-5.1) Chloride Level 101 MMOL/L (98-107) Carbon Dioxide Level 32 MMOL/L (21-32) Anion Gap 9 mmol/L (5-15) Blood Urea Nitrogen 81 mg/dL (7-18) H Creatinine 10.0 MG/DL (0.55-1.30) H Estimat Glomerular Filtration Rate 6.3 mL/min (>60) Glucose Level 80 MG/DL (74-106) Calcium Level 8.3 MG/DL (8.5-10.1) L Total Bilirubin 0.4 MG/DL (0.2-1.0) Aspartate Amino Transf (AST/SGOT) 27 U/L (15-37) Alanine Aminotransferase (ALT/SGPT) 30 U/L (12-78) Alkaline Phosphatase 115 U/L (46-116) Total Protein 6.8 G/DL (6.4-8.2) Albumin 2.9 G/DL (3.4-5.0) L Globulin 3.9 g/dL Albumin/Globulin Ratio 0.7 (1.0-2.7) L Denise Rogers MD Jul 20, 2018 09:43
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
[2018-07-20] MEDS: LORazepam Inj 2mg/ml 1ml IV PRN (10:38)
[2018-07-20] MEDS: Pantoprazole Inj IV SCH (11:15)
[2018-07-20] MEDS: NovoLOG Insulin Flexpen SUBQ SCH ×3 (11:19→21:00)
--- NOTE | 2018-07-20 11:33 | Nephrology Progress Note ---
Assessment/Plan Problem List: (1) ESRD (end stage renal disease) on dialysis (2) Hyperkalemia (3) CHF (congestive heart failure) (4) Anemia in chronic kidney disease (CKD) Assessment ESRD has permacath hyperkalemia Shortness of breath, CHF NOW ACUTE RESPIRATORY FAILURE , ON VENT Encephalopathy condition: 1) ESRD (end stage renal disease) on dialysis (2) Anemia in chronic kidney disease (CKD) (3) Hypertensive kidney disease (4) Encephalopathy (5) DM (6) Hyperlipemia Plan Vent support Dialysis 07/20 Continue dialysis as needed optimize cardiac status 2 D echo adjust BP meds Anemia work up : ? transfusion if needed adjust BS meds phos binders st eval per orders Subjective ROS Limited/Unobtainable: Yes Objective Objective Last 24 Hour Vital Signs Date Time Temp Pulse Resp B/P (MAP) Pulse Ox O2 Delivery O2 Flow Rate FiO2 07/20/18 10:56 Endotracheal Tube 50 07/20/18 07:14 60 22 100 Facial 55 07/20/18 07:14 Bi-pap 60 07/20/18 07:14 100 Bi-pap 60 07/20/18 06:00 72 123/62 07/20/18 04:00 72 07/20/18 04:00 97.5 70 17 123/62 (82) 100 97.5 07/20/18 04:00 Venturi Mask 12.0 07/20/18 00:00 97.3 17 17 137/43 (74) 98 97.3 07/20/18 00:00 63 07/20/18 00:00 Venturi Mask 15.0 07/19/18 21:00 Nasal Cannula 2.0 07/19/18 20:59 73 164/66 07/19/18 20:00 73 07/19/18 20:00 98.0 73 20 164/66 (98) 96 98.0 07/19/18 19:53 94 Venturi Mask 14.0 55 07/19/18 19:53 Venturi Mask 14.0 55 07/19/18 19:51 74 25 Venturi Mask 14.0 55 07/19/18 16:00 82 07/19/18 16:00 98.1 79 18 156/62 (93) 96 98.1 07/19/18 14:59 76 148/61 07/19/18 12:00 76 07/19/18 11:55 98.0 78 20 148/61 (90) 98 98.0 Intake and Output 07/19/18 07/20/18 19:00 07:00 Intake Total 0 ml Output Total 50 ml Balance -50 ml Intake Oral 0 ml Output Urine Total 50 ml # Voids 1 1 # Bowel Movements 2 Laboratory Tests 07/20/18 06:34: Arterial Blood pH 7.110*L, Arterial Blood Partial Pressure CO2 92.5*H, Arterial Blood Partial Pressure O2 98.3, Arterial Blood HCO3 29.1H, Arterial Blood Oxygen Saturation 94.9, Arterial Blood Base Excess -1.4, Calvin Test Positive 07/20/18 06:40: White Blood Count 3.9L, Red Blood Count 2.83L, Hemoglobin 8.6L, Hematocrit 27.5L , Mean Corpuscular Volume 97, Mean Corpuscular Hemoglobin 30.5, Mean Corpuscular Hemoglobin Concent 31.3L, Red Cell Distribution Width 15.9H, Platelet Count 87L, Mean Platelet Volume 7.5, Neutrophils (%) (Auto) , Lymphocytes (%) (Auto) , Monocytes (%) (Auto) , Eosinophils (%) (Auto) , Basophils (%) (Auto) , Differential Total Cells Counted 100, Neutrophils % ( Manual) 81H, Lymphocytes % (Manual) 13L, Monocytes % (Manual) 4, Eosinophils % ( Manual) 1, Basophils % (Manual) 1, Band Neutrophils 0, Platelet Estimate DecreasedL, Platelet Morphology Normal, Hypochromasia 2+, Anisocytosis 1+, Sodium Level 142, Potassium Level 4.2, Chloride Level 101, Carbon Dioxide Level 32, Anion Gap 9, Blood Urea Nitrogen 81H, Creatinine 10.0H, Estimat Glomerular Filtration Rate 6.3, Glucose Level 80, Calcium Level 8.3L, Total Bilirubin 0.4, Aspartate Amino Transf (AST/SGOT) 27, Alanine Aminotransferase (ALT/SGPT) 30, Alkaline Phosphatase 115, Total Protein 6.8, Albumin 2.9L, Globulin 3.9, Albumin /Globulin Ratio 0.7L 07/20/18 08:12: Arterial Blood pH 7.110*L, Arterial Blood Partial Pressure CO2 98.8*H, Arterial Blood Partial Pressure O2 140.6H, Arterial Blood HCO3 30.8H, Arterial Blood Oxygen Saturation 97.6, Arterial Blood Base Excess 0, Calvin Test Positive Height (Feet): 5 Height (Inches): 8.00 Weight (Pounds): 217 General Appearance: mild distress, other - in ICU EENT: other Cardiovascular: normal rate Respiratory/Chest: decreased breath sounds Abdomen: distended Objective no change Mirza Conde MD Jul 20, 2018 11:33
[2018-07-20] MEDS: Morphine Sulfate 4mg/ml Inj (IV USE ONLY) IVP PRN ×2 (12:19→21:57)
--- NOTE | 2018-07-20 14:25 | General Progress Note ---
Assessment/Plan Problem List: (1) Acute hypercapnic respiratory failure ICD Codes: J96.02 - Acute respiratory failure with hypercapnia SNOMED: 151313221 (2) Severe sepsis ICD Codes: A41.9 - Sepsis, unspecified organism; R65.20 - Severe sepsis without septic shock SNOMED: 68354688 (3) Hyperkalemia ICD Codes: E87.5 - Hyperkalemia SNOMED: 48760166 (4) Acute on chronic diastolic (congestive) heart failure ICD Codes: I50.33 - Acute on chronic diastolic (congestive) heart failure SNOMED: 34104658, 936926939 (5) Acute metabolic encephalopathy ICD Codes: G93.41 - Metabolic encephalopathy SNOMED: 97183411, 267785276 (6) ESRD (end stage renal disease) on dialysis ICD Codes: N18.6 - End stage renal disease; Z99.2 - Dependence on renal dialysis SNOMED: 554514983 (7) HTN (hypertension) ICD Codes: I10 - Essential (primary) hypertension SNOMED: 71542066 (8) Hypertensive heart and renal disease ICD Codes: I13.10 - Hypertensive heart and chronic kidney disease without heart failure, with stage 1 through stage 4 chronic kidney disease, or unspecified chronic kidney disease SNOMED: 34673827 (9) Anemia in ESRD (end-stage renal disease) ICD Codes: N18.6 - End stage renal disease; D63.1 - Anemia in chronic kidney disease SNOMED: 84644590, 238866462 (10) Dementia with psychosis ICD Codes: F03.91 - Unspecified dementia with behavioral disturbance SNOMED: 01247354, 75423802 (11) Pancytopenia ICD Codes: D61.818 - Other pancytopenia SNOMED: 790014820 Assessment/Plan # Acute hypercapneic respiratory failure - possibly 2/2 aspiration event # Health care associated pneumonia - Pulm on board - Pt now intubated and on vent since 07/20 - Wean vent as tolerated - Daily SBTs, sedation holidays - Repeat CXR - ID consulted - Empiric vanco and zosyn # Severe sepsis # Health care associated pneumonia - ID consulted - Empiric vanco and zosyn 07/20- - F/u blood cx - F/u CXR - F/u sputum culture # Severe hyperkalemia - K 8.4 on admit, now improved s/p HD # Metabolic acidosis # ESRD on HD - Transferred out of ICU on 07/17/18 - Pulm/critical care consulted - Renal consulted - cont HD per renal. Last HD yesterday - Cont renvela, nephrovite # Acute on chronic diastolic heart failure - Cardiology consulted - Check TTE --> EF wnl - HD for volume removal # NSTEMI type 2 - likely demand ischemia in setting of volume overload - Cardiology consulted - Trend trop/EKG - TTE reviewed and showed normal EF # Acute metabolic encephalopathy - likely in setting of metabolic derangements from renal dysfcn # Dementia with psychosis - Psych consulted - ctm # HTN # Hypertensive heart and renal disease - Cont labetolol # Pancytopenia # Anemia in ESRD # Thrombocytopenia # Leukopenia - Heme/onc consulted - EPO per renal - IV venofer - s/p 1U pRBC on 07/17/18 - ctm CBC DVT Prophylaxis: SCD, HSQ Code Status: Full Hospital Classification Declaration: Based on this initial evaluation, and depending on the patient's clinical course, I anticipate that this patient will require hospitalization for 3-4 days for volume overload, severe hyperK and close respiratory/hemodynamic monitoring. Disposition: Once the patient is stable to leave the hospital, I anticipate the patient will likely be discharged to the following environment: back to SNF At the time of my involvement, the patient's condition was critical with high potential for and/or physiologic deterioration secondary to acute respiratory failure, severe sepsis as delineated in the note above. On the above date of service, I spent a total of 45 minutes in the ICU evaluating, managing, and providing critical care services to this patient, including time spent documenting these activities, counseling patient/family, and coordinating care. Critical care services performed include: Telemetry Review Hemodynamic measurement interpretation Laboratory data review and interpretation Ventilator setting review, management, and adjustment Discussion of care plans with patient, family, and/or surrogate decision makers Discussion of patient's care with primary medical team, surgical team, and/or consulting service Decision to obtain further radiologic evaluation, after consideration of risk/ benefit ratio Decision to perform invasive procedure, after consideration of risk/benefit ratio CRRT management including evaluation for appropriateness Review of most recent microbiology results with assessment and modification of antimicrobial coverage Discussion of patient's code status and further advancement towards the ultimate goals of care Plan outlined above discussed with patient/family, TERRITORY ACCOUNT MANAGER, ICU team, and involved physicians/consultants. Time of note may not reflect time of encounter. Subjective Date patient seen: Jul 20, 2018 Time patient seen: 14:25 ROS Limited/Unobtainable: Yes Allergies: Coded Allergies: No Known Allergies (Verified , 11/24/07) UNABLE TO ASSESS (Unverified , 07/15/18) Subjective Pt more somnolent o/n. ABG showed acute respiratory acidosis with pH 7.1, CO2 90s. Pt placed on biPAP and transferred to ICU Pt w/ poor response on biPAP so he was subsequently intubated Pt intubated, sedated Objective Last 24 Hour Vital Signs Date Time Temp Pulse Resp B/P (MAP) Pulse Ox O2 Delivery O2 Flow Rate FiO2 07/20/18 12:49 97.5 07/20/18 12:19 97.5 07/20/18 12:00 Mechanical Ventilator 55.0 07/20/18 11:59 Endotracheal Tube 50 07/20/18 10:56 Endotracheal Tube 50 07/20/18 09:14 88 26 50 07/20/18 08:00 Bi-pap 50.0 07/20/18 07:14 60 22 100 Facial 55 07/20/18 07:14 Bi-pap 60 07/20/18 07:14 100 Bi-pap 60 07/20/18 06:00 72 123/62 07/20/18 04:00 72 07/20/18 04:00 97.5 70 17 123/62 (82) 100 97.5 07/20/18 04:00 Venturi Mask 12.0 07/20/18 00:00 97.3 17 17 137/43 (74) 98 97.3 07/20/18 00:00 63 07/20/18 00:00 Venturi Mask 15.0 07/19/18 21:00 Nasal Cannula 2.0 07/19/18 20:59 73 164/66 07/19/18 20:00 73 07/19/18 20:00 98.0 73 20 164/66 (98) 96 98.0 07/19/18 19:53 94 Venturi Mask 14.0 55 07/19/18 19:53 Venturi Mask 14.0 55 07/19/18 19:51 74 25 Venturi Mask 14.0 55 07/19/18 16:00 82 07/19/18 16:00 98.1 79 18 156/62 (93) 96 98.1 07/19/18 14:59 76 148/61 Intake and Output 07/19/18 07/20/18 19:00 07:00 Intake Total 0 ml Output Total 50 ml Balance -50 ml Intake Oral 0 ml Output Urine Total 50 ml # Voids 1 1 # Bowel Movements 2 Laboratory Tests 07/20/18 06:34: Arterial Blood pH 7.110*L, Arterial Blood Partial Pressure CO2 92.5*H, Arterial Blood Partial Pressure O2 98.3, Arterial Blood HCO3 29.1H, Arterial Blood Oxygen Saturation 94.9, Arterial Blood Base Excess -1.4, Calvin Test Positive 07/20/18 06:40: White Blood Count 3.9L, Red Blood Count 2.83L, Hemoglobin 8.6L, Hematocrit 27.5L , Mean Corpuscular Volume 97, Mean Corpuscular Hemoglobin 30.5, Mean Corpuscular Hemoglobin Concent 31.3L, Red Cell Distribution Width 15.9H, Platelet Count 87L, Mean Platelet Volume 7.5, Neutrophils (%) (Auto) , Lymphocytes (%) (Auto) , Monocytes (%) (Auto) , Eosinophils (%) (Auto) , Basophils (%) (Auto) , Differential Total Cells Counted 100, Neutrophils % ( Manual) 81H, Lymphocytes % (Manual) 13L, Monocytes % (Manual) 4, Eosinophils % ( Manual) 1, Basophils % (Manual) 1, Band Neutrophils 0, Platelet Estimate DecreasedL, Platelet Morphology Normal, Hypochromasia 2+, Anisocytosis 1+, Sodium Level 142, Potassium Level 4.2, Chloride Level 101, Carbon Dioxide Level 32, Anion Gap 9, Blood Urea Nitrogen 81H, Creatinine 10.0H, Estimat Glomerular Filtration Rate 6.3, Glucose Level 80, Calcium Level 8.3L, Total Bilirubin 0.4, Aspartate Amino Transf (AST/SGOT) 27, Alanine Aminotransferase (ALT/SGPT) 30, Alkaline Phosphatase 115, Total Protein 6.8, Albumin 2.9L, Globulin 3.9, Albumin /Globulin Ratio 0.7L 07/20/18 08:12: Arterial Blood pH 7.110*L, Arterial Blood Partial Pressure CO2 98.8*H, Arterial Blood Partial Pressure O2 140.6H, Arterial Blood HCO3 30.8H, Arterial Blood Oxygen Saturation 97.6, Arterial Blood Base Excess 0, Calvin Test Positive Height (Feet): 5 Height (Inches): 8.00 Weight (Pounds): 217 Objective General: intubated, sedated Head: normocephalic, without obvious abnormality, atraumatic Eyes: conjunctivae/corneas clear. PERRL, EOM's intact Throat: lips, mucosa, and tongue normal. MMM Neck: supple, symmetrical, trachea midline, and no JVD Lungs: clear to auscultation bilaterally Heart: regular rate and rhythm, S1, S2 normal, no murmur, click, rub or gallop Abdomen: soft, non-tender, non-distended, bowel sounds normal; no masses or organomegaly Extremities: extremities normal, atraumatic, no cyanosis or edema Pulses: 2+ and symmetric Skin: skin color, texture, turgor normal; no rashes or lesions Neurologic: grossly normal, no focal deficits Kamilla Padgett M.D. Jul 20, 2018 14:25
--- NOTE | 2018-07-20 15:50 | Diagnostic Imaging Report ---
Indication: Dyspnea, status post endotracheal tube placement Technique: One view of the chest Comparison: One hour earlier Findings: Endotracheal intubation, endotracheal tube tip projecting in good position approximately 6 cm above the ritu. Bilateral pleural effusions and bilateral interstitial and airspace edema are again demonstrated. Tunneled dialysis catheter and prosthetic aortic valve are again demonstrated Impression: Satisfactory endotracheal intubation Other stable findings as described
--- NOTE | 2018-07-20 16:05 | Diagnostic Imaging Report ---
Indication: Status post orogastric tube placement Technique: Supine view of the upper abdomen Comparison: 02/12/2012 Findings: Interim placement of and orogastric tube, tip projected at the level gastric antrum, proximal port well beyond the gastroesophageal junction. Considerable gas is seen in nondilated large and small bowel. Pleural and parenchymal pulmonary disease is demonstrated Impression: Satisfactory orogastric intubation Other findings as noted
[2018-07-20] MEDS ORDERED: Zemuron 50mg/5ml Inj IV ONE (16:09)
[2018-07-20] MEDS ORDERED: Etomidate 40mg/20ml Inj IV ONE (16:09)
[2018-07-20] MEDS ORDERED: Vancomycin 1500mg IVPB SCH (20:00)
[2018-07-20] MEDS ORDERED: Zolpidem 5mg tab ORAL PRN ×2 (21:00)
[2018-07-20] MEDS ORDERED: Piperacillin/Tazobactam 3.375 GM in NS 110 ML IVPB SCH (21:00)
[2018-07-20] MEDS ORDERED: Miralax 17gm pkt ORAL PRN ×2 (21:00)
[2018-07-20] MEDS: Zosyn 2.25 gm in D5W 55ml IV SCH (21:58)
--- NOTE | 2018-07-20 23:11 | Infectious Diseases Prog Note ---
Assessment/Plan Assessment/Plan Full consult to follow: A) 1) sepsis, fevers, pna 2) esrd, hd 3) respiratory failure 4) nkda P) 1) zosyn and vancomycin 2) cowart culture 3) f/u chest x-ray 4) monitor labs 5) thank you Subjective Allergies: Coded Allergies: No Known Allergies (Verified , 11/24/07) UNABLE TO ASSESS (Unverified , 07/15/18) Objective Vital Signs Last 24 Hour Vital Signs Date Time Temp Pulse Resp B/P (MAP) Pulse Ox O2 Delivery O2 Flow Rate FiO2 07/20/18 21:57 63 147/47 07/20/18 20:56 63 20 40 07/20/18 20:00 62 07/20/18 20:00 Mechanical Ventilator 55.0 07/20/18 19:28 66 20 40 07/20/18 19:00 62 17 147/47 (80) 100 07/20/18 18:23 62 17 134/54 (80) 100 07/20/18 18:00 100.4 72 17 154/47 (82) 100 100.4 07/20/18 17:18 77 28 50 07/20/18 17:03 102.2 07/20/18 17:00 100.1 74 17 148/40 (76) 100 100.1 07/20/18 16:34 171/44 07/20/18 16:33 102.8 07/20/18 16:00 76 07/20/18 16:00 102.2 75 17 148/37 (74) 100 102.2 07/20/18 16:00 Mechanical Ventilator 55.0 07/20/18 15:29 76 26 50 07/20/18 15:00 102.8 79 17 159/42 (81) 100 102.8 07/20/18 14:00 76 17 150/124 (133) 100 07/20/18 13:00 65 17 137/99 (112) 100 07/20/18 12:58 77 26 50 07/20/18 12:49 97.5 07/20/18 12:19 97.5 07/20/18 12:00 Mechanical Ventilator 55.0 07/20/18 12:00 67 17 145/82 (103) 100 07/20/18 12:00 76 07/20/18 11:59 Endotracheal Tube 50 07/20/18 11:22 78 26 50 07/20/18 11:00 67 17 157/78 (104) 100 07/20/18 10:56 Endotracheal Tube 50 07/20/18 10:00 66 17 112/56 (74) 100 07/20/18 09:14 88 26 50 07/20/18 09:00 62 17 134/54 (80) 100 07/20/18 08:00 Bi-pap 50.0 07/20/18 08:00 59 07/20/18 08:00 99.0 17 118/36 (63) 100 99.0 07/20/18 07:14 60 22 100 Facial 55 07/20/18 07:14 Bi-pap 60 07/20/18 07:14 100 Bi-pap 60 07/20/18 06:00 72 123/62 07/20/18 04:00 72 07/20/18 04:00 97.5 70 17 123/62 (82) 100 97.5 07/20/18 04:00 Venturi Mask 12.0 07/20/18 00:00 97.3 17 17 137/43 (74) 98 97.3 07/20/18 00:00 63 07/20/18 00:00 Venturi Mask 15.0 Height (Feet): 5 Height (Inches): 8.00 Weight (Pounds): 217 Laboratory Tests Test 07/20/18 06:34 07/20/18 06:40 07/20/18 08:12 07/20/18 09:23 Arterial Blood pH 7.110 (7.350-7.450) 7.110 (7.350-7.450) 7.480 (7.350-7.450) Arterial Blood Partial Pressure CO2 92.5 mmHg (35.0-45.0) *H 98.8 mmHg (35.0-45.0) *H 35.4 mmHg (35.0-45.0) Arterial Blood Partial Pressure O2 98.3 mmHg (75.0-100.0) 140.6 mmHg (75.0-100.0) H 92.4 mmHg (75.0-100.0) Arterial Blood HCO3 29.1 mmol/L (22.0-26.0) H 30.8 mmol/L (22.0-26.0) H 26.1 mmol/L (22.0-26.0) H Arterial Blood Oxygen Saturation 94.9 % (92.0-98.0) 97.6 % (92.0-98.0) 97.1 % (92.0-98.0) Arterial Blood Base Excess -1.4 0 2.7 Calvin Test Positive Positive Positive White Blood Count 3.9 K/UL (4.8-10.8) L Red Blood Count 2.83 M/UL (4.70-6.10) L Hemoglobin 8.6 G/DL (14.2-18.0) L Hematocrit 27.5 % (42.0-52.0) L Mean Corpuscular Volume 97 FL (80-99) Mean Corpuscular Hemoglobin 30.5 PG (27.0-31.0) Mean Corpuscular Hemoglobin Concent 31.3 G/DL (32.0-36.0) L Red Cell Distribution Width 15.9 % (11.6-14.8) H Platelet Count 87 K/UL (150-450) L Mean Platelet Volume 7.5 FL (6.5-10.1) Neutrophils (%) (Auto) % (45.0-75.0) Lymphocytes (%) (Auto) % (20.0-45.0) Monocytes (%) (Auto) % (1.0-10.0) Eosinophils (%) (Auto) % (0.0-3.0) Basophils (%) (Auto) % (0.0-2.0) Differential Total Cells Counted 100 Neutrophils % (Manual) 81 % (45-75) H Lymphocytes % (Manual) 13 % (20-45) L Monocytes % (Manual) 4 % (1-10) Eosinophils % (Manual) 1 % (0-3) Basophils % (Manual) 1 % (0-2) Band Neutrophils 0 % (0-8) Platelet Estimate Decreased L Platelet Morphology Normal Hypochromasia 2+ Anisocytosis 1+ Sodium Level 142 MMOL/L (136-145) Potassium Level 4.2 MMOL/L (3.5-5.1) Chloride Level 101 MMOL/L (98-107) Carbon Dioxide Level 32 MMOL/L (21-32) Anion Gap 9 mmol/L (5-15) Blood Urea Nitrogen 81 mg/dL (7-18) H Creatinine 10.0 MG/DL (0.55-1.30) H Estimat Glomerular Filtration Rate 6.3 mL/min (>60) Glucose Level 80 MG/DL (74-106) Calcium Level 8.3 MG/DL (8.5-10.1) L Total Bilirubin 0.4 MG/DL (0.2-1.0) Aspartate Amino Transf (AST/SGOT) 27 U/L (15-37) Alanine Aminotransferase (ALT/SGPT) 30 U/L (12-78) Alkaline Phosphatase 115 U/L (46-116) Total Protein 6.8 G/DL (6.4-8.2) Albumin 2.9 G/DL (3.4-5.0) L Globulin 3.9 g/dL Albumin/Globulin Ratio 0.7 (1.0-2.7) L Current Medications Medications (Trade) Dose Ordered Sig/Praveen Route PRN Reason Start Time Stop Time Status Last Admin Dose Admin Acetaminophen (Tylenol) 650 mg Q4H PRN ORAL fever 07/20/18 08:15 08/15/18 08:14 07/20/18 16:33 Albuterol/ Ipratropium (Albuterol/ Ipratropium) 3 ml Q6H PRN HHN dyspnea 07/20/18 08:15 07/21/18 08:14 Clonidine HCl (Catapres Tab) 0.1 mg Q4H PRN ORAL for sbp more than 160 07/20/18 08:15 08/15/18 08:14 Dextrose (Dextrose 50%) 25 ml Q1H PRN IV Hypoglycemia 07/20/18 08:15 Dextrose (Dextrose 50%) 50 ml Q1H PRN IV hypoglycemia 07/20/18 08:15 Docusate Sodium (Colace) 100 mg TID ORAL 07/20/18 09:00 08/15/18 10:59 Epoetin Yao (Procrit (for ESRD on dialysis)) 10,000 units [id number]-[id number]-[id number] SUBQ 07/21/18 21:00 08/15/18 20:59 Famotidine (Pepcid) 10 mg DAILY ORAL 07/20/18 09:00 08/16/18 08:59 Haloperidol Lactate (Haldol) 5 mg Q6H PRN IM Agitation 07/20/18 08:15 08/16/18 08:14 Hydralazine HCl (Apresoline) 10 mg Q4H PRN IV SBP > OR = 160mmHg 07/20/18 15:00 08/19/18 14:59 07/20/18 16:34 Insulin Aspart (NovoLOG) BEFORE MEALS AND HS SUBQ 07/20/18 11:30 08/16/18 20:59 Iron Sucrose 100 mg/Sodium Chloride 55 ml @ 200 mls/hr BEDTIME IV 07/20/18 21:00 07/25/18 21:17 07/20/18 21:59 Labetalol HCl (Normodyne) 100 mg EVERY 8 HOURS ORAL 07/20/18 14:00 08/15/18 13:59 07/20/18 21:57 Lorazepam (Ativan 2mg/ml 1ml) 2 mg Q4H PRN IV For Anxiety 07/20/18 09:45 07/27/18 09:29 07/20/18 10:38 Morphine Sulfate (Morphine Sulfate) 4 mg Q4H PRN IVP For Pain 07/20/18 09:30 07/27/18 09:29 07/20/18 21:57 Ondansetron HCl (Zofran) 4 mg Q6H PRN IVP Nausea & Vomiting 07/20/18 08:30 08/15/18 08:29 Pantoprazole (Protonix) 40 mg DAILY IV 07/20/18 09:00 08/19/18 08:59 07/20/18 11:15 Piperacillin Sod/ Tazobactam Sod 2.25 gm/Dextrose 55 ml @ 110 mls/hr Q8H IV 07/20/18 19:30 07/27/18 19:29 07/20/18 21:58 Polyethylene Glycol (Miralax) 17 gm HSPRN PRN ORAL Constipation 07/20/18 21:00 08/15/18 20:59 Quetiapine Fumarate (SEROquel) 25 mg Q6H PRN ORAL For Anxiety 07/20/18 08:30 08/15/18 08:29 Quetiapine Fumarate (SEROquel) 100 mg Q8HR ORAL 07/20/18 14:00 08/15/18 13:59 07/20/18 22:12 Sevelamer Carbonate (Renvela) 2,400 mg THREE TIMES A DAY ORAL 07/20/18 09:00 08/15/18 12:59 Vancomycin HCl (Vanco rx to dose) 1 ea DAILY PRN MISC Per rx protocol 07/20/18 18:00 08/19/18 17:59 Zolpidem Tartrate (Ambien) 5 mg HSPRN PRN ORAL Insomnia 07/20/18 21:00 07/23/18 20:59 Olinda Poon MD Jul 20, 2018 23:11
--- NOTE | 2018-07-20 23:54 | Cardiology Progress Note ---
Assessment/Plan Status: stable Assessment/Plan Assessment: 1) ESRD (end stage renal disease) on dialysis (2) Anemia in chronic kidney disease (CKD) (3) Hypertensive kidney disease (4) Encephalopathy (5) DM (6) Hyperlipemia Plan: Maintain hemodialysis Echocardiogram --> preserved systolic function, mild valvular regurgitation, mild pulmonary hypertension, elevated filling pressures Stress text next week to evaluate chest pain given multiple cardiac risk factors and NSVT - currently unstable to proceed Aspirin Statin Serial EKG/Troponin No indication for troponin at this time. No indication for urgent cardiac cath LE ultrasound PRBC transfusion Maintain hemodialysis Vent care Tube feeds Poor prognosis Subjective Cardiovascular: Reports: no symptoms Respiratory: Reports: no symptoms Gastrointestinal/Abdominal: Reports: no symptoms Genitourinary: Reports: no symptoms Subjective Transferred to ICU for obtunded mental status, intubated Objective Last 24 Hour Vital Signs Date Time Temp Pulse Resp B/P (MAP) Pulse Ox O2 Delivery O2 Flow Rate FiO2 07/20/18 23:29 62 20 40 07/20/18 23:00 16 155/43 (80) 99 07/20/18 22:00 18 167/58 (94) 100 07/20/18 21:57 63 147/47 07/20/18 21:00 25 152/58 (89) 100 07/20/18 20:56 63 20 40 07/20/18 20:00 62 07/20/18 20:00 Mechanical Ventilator 55.0 07/20/18 20:00 21 155/52 (86) 98 07/20/18 19:28 66 20 40 07/20/18 19:00 98.5 65 20 157/42 (80) 100 98.5 07/20/18 19:00 62 17 147/47 (80) 100 07/20/18 18:23 62 17 134/54 (80) 100 07/20/18 18:00 100.4 72 17 154/47 (82) 100 100.4 07/20/18 17:18 77 28 50 07/20/18 17:03 102.2 07/20/18 17:00 100.1 74 17 148/40 (76) 100 100.1 07/20/18 16:34 171/44 07/20/18 16:33 102.8 07/20/18 16:00 76 07/20/18 16:00 102.2 75 17 148/37 (74) 100 102.2 07/20/18 16:00 Mechanical Ventilator 55.0 07/20/18 15:29 76 26 50 07/20/18 15:00 102.8 79 17 159/42 (81) 100 102.8 07/20/18 14:00 76 17 150/124 (133) 100 07/20/18 13:00 65 17 137/99 (112) 100 07/20/18 12:58 77 26 50 07/20/18 12:49 97.5 07/20/18 12:19 97.5 07/20/18 12:00 Mechanical Ventilator 55.0 07/20/18 12:00 67 17 145/82 (103) 100 07/20/18 12:00 76 07/20/18 11:59 Endotracheal Tube 50 07/20/18 11:22 78 26 50 07/20/18 11:00 67 17 157/78 (104) 100 07/20/18 10:56 Endotracheal Tube 50 07/20/18 10:00 66 17 112/56 (74) 100 07/20/18 09:14 88 26 50 07/20/18 09:00 62 17 134/54 (80) 100 07/20/18 08:00 Bi-pap 50.0 07/20/18 08:00 59 07/20/18 08:00 99.0 17 118/36 (63) 100 99.0 07/20/18 07:14 60 22 100 Facial 55 07/20/18 07:14 Bi-pap 60 07/20/18 07:14 100 Bi-pap 60 07/20/18 06:00 72 123/62 07/20/18 04:00 72 07/20/18 04:00 97.5 70 17 123/62 (82) 100 97.5 07/20/18 04:00 Venturi Mask 12.0 07/20/18 00:00 97.3 17 17 137/43 (74) 98 97.3 07/20/18 00:00 63 07/20/18 00:00 Venturi Mask 15.0 General Appearance: lethargic, on vent EENT: PERRL/EOMI, normal ENT inspection Neck: non-tender Rhythm: NSR Cardiovascular: normal peripheral pulses, normal rate Respiratory/Chest: chest wall non-tender, normal breath sounds, accessory muscle use Abdomen: normal bowel sounds, non tender Extremities: normal range of motion, non-tender 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: 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 grossly normal, no motor/sensory deficits Intake and Output 07/19/18 07/20/18 19:00 07:00 Intake Total 0 ml Output Total 50 ml Balance -50 ml Intake Oral 0 ml Output Urine Total 50 ml # Voids 1 1 # Bowel Movements 2 Laboratory Tests Test 07/20/18 06:34 07/20/18 06:40 07/20/18 08:12 07/20/18 09:23 Arterial Blood pH 7.110 (7.350-7.450) 7.110 (7.350-7.450) 7.480 (7.350-7.450) Arterial Blood Partial Pressure CO2 92.5 mmHg (35.0-45.0) *H 98.8 mmHg (35.0-45.0) *H 35.4 mmHg (35.0-45.0) Arterial Blood Partial Pressure O2 98.3 mmHg (75.0-100.0) 140.6 mmHg (75.0-100.0) H 92.4 mmHg (75.0-100.0) Arterial Blood HCO3 29.1 mmol/L (22.0-26.0) H 30.8 mmol/L (22.0-26.0) H 26.1 mmol/L (22.0-26.0) H Arterial Blood Oxygen Saturation 94.9 % (92.0-98.0) 97.6 % (92.0-98.0) 97.1 % (92.0-98.0) Arterial Blood Base Excess -1.4 0 2.7 Calvin Test Positive Positive Positive White Blood Count 3.9 K/UL (4.8-10.8) L Red Blood Count 2.83 M/UL (4.70-6.10) L Hemoglobin 8.6 G/DL (14.2-18.0) L Hematocrit 27.5 % (42.0-52.0) L Mean Corpuscular Volume 97 FL (80-99) Mean Corpuscular Hemoglobin 30.5 PG (27.0-31.0) Mean Corpuscular Hemoglobin Concent 31.3 G/DL (32.0-36.0) L Red Cell Distribution Width 15.9 % (11.6-14.8) H Platelet Count 87 K/UL (150-450) L Mean Platelet Volume 7.5 FL (6.5-10.1) Neutrophils (%) (Auto) % (45.0-75.0) Lymphocytes (%) (Auto) % (20.0-45.0) Monocytes (%) (Auto) % (1.0-10.0) Eosinophils (%) (Auto) % (0.0-3.0) Basophils (%) (Auto) % (0.0-2.0) Differential Total Cells Counted 100 Neutrophils % (Manual) 81 % (45-75) H Lymphocytes % (Manual) 13 % (20-45) L Monocytes % (Manual) 4 % (1-10) Eosinophils % (Manual) 1 % (0-3) Basophils % (Manual) 1 % (0-2) Band Neutrophils 0 % (0-8) Platelet Estimate Decreased L Platelet Morphology Normal Hypochromasia 2+ Anisocytosis 1+ Sodium Level 142 MMOL/L (136-145) Potassium Level 4.2 MMOL/L (3.5-5.1) Chloride Level 101 MMOL/L (98-107) Carbon Dioxide Level 32 MMOL/L (21-32) Anion Gap 9 mmol/L (5-15) Blood Urea Nitrogen 81 mg/dL (7-18) H Creatinine 10.0 MG/DL (0.55-1.30) H Estimat Glomerular Filtration Rate 6.3 mL/min (>60) Glucose Level 80 MG/DL (74-106) Calcium Level 8.3 MG/DL (8.5-10.1) L Total Bilirubin 0.4 MG/DL (0.2-1.0) Aspartate Amino Transf (AST/SGOT) 27 U/L (15-37) Alanine Aminotransferase (ALT/SGPT) 30 U/L (12-78) Alkaline Phosphatase 115 U/L (46-116) Total Protein 6.8 G/DL (6.4-8.2) Albumin 2.9 G/DL (3.4-5.0) L Globulin 3.9 g/dL Albumin/Globulin Ratio 0.7 (1.0-2.7) L Yimi Luevano MD Jul 20, 2018 23:54
[2018-07-21] VITALS (24 sets, daily range): BP systolic 107–166; BP diastolic 33–86
[2018-07-21] MEDS: Zosyn 2.25 gm in D5W 55ml IV SCH ×3 (03:28→19:48)
[2018-07-21] MEDS: NovoLOG Insulin Flexpen SUBQ SCH ×4 (06:16→23:31)
[2018-07-21 06:51] LABS: HEMATOCRIT 25.6 % (42.0-52.0); HEMOGLOBIN 8.3 G/DL (14.2-18.0); MEAN CORPUSCULAR VOLUME 94 FL (80-99); PLATELET COUNT 81 K/UL (150-450); RED BLOOD COUNT 2.72 M/UL (4.70-6.10); RED CELL DISTRIBUTION WIDTH 15.9 % (11.6-14.8)
[2018-07-21 07:30] LABS: ALANINE AMINOTRANSFERASE 27 U/L (12-78); ALBUMIN 2.7 G/DL (3.4-5.0); ALBUMIN/GLOBULIN RATIO 0.7 (1.0-2.7); ALKALINE PHOSPHATASE 105 U/L (46-116); ANION GAP 14 mmol/L (5-15); ASPARTATE AMINO TRANSFERASE 37 U/L (15-37); BILIRUBIN,TOTAL 0.9 MG/DL (0.2-1.0); BLOOD UREA NITROGEN 76 mg/dL (7-18); CALCIUM 9.2 MG/DL (8.5-10.1); CARBON DIOXIDE 26 MMOL/L (21-32); CHLORIDE 99 MMOL/L (98-107); CREATININE 8.7 MG/DL (0.55-1.30); PHOSPHORUS 6.4 MG/DL (2.5-4.9); POTASSIUM 3.4 MMOL/L (3.5-5.1); SODIUM 139 MMOL/L (136-145)
--- NOTE | 2018-07-21 08:37 | General Progress Note ---
Assessment/Plan Assessment/Plan # Pancytopenia potentially reactive process versus meds related or related to bone marrow process, hepatitis and hiv both reviewed and are negative, has been acute onset since admission --> us of the abdomen shows splenomegaly, continues to persist --> at this time, does not need a bone marrow biopsy --> on IV iron and epogen sq --> cbc has been reviewed daily # Anemia of chronic disease has been evaluated and reviewed, does have evidence of iron deficiency, has been given iron once d/c --> po iron once discharged --> ok for epogen --> on iv iron --> appreciate renal recs --> on HD prn # Sharp chest pain shortness of breath --> ddx: ACS vs. CHF vs. pneumonia vs. gastritis/GERD vs pneumothorax versus fluid overload/end-stage renal disease --> renal consulted # AZAM on CKD --> appreciate renal recs # ESRD as per nephro --> on hd # + cardiomeghaly with PVC Greatly appreciate consultation! Subjective Constitutional: Denies: no symptoms, chills, diaphoresis, fever, malaise, weakness, other HEENT: Denies: no symptoms, eye pain, blurred vision, tearing, double vision, ear pain, ear discharge, nose pain, nose congestion, throat pain, throat swelling, mouth pain, mouth swelling, other Cardiovascular: Denies: no symptoms, chest pain, edema, irregular heart rate, lightheadedness, palpitations, syncope, other Respiratory: Denies: no symptoms, cough, orthopnea, shortness of breath, SOB with excertion, SOB at rest, sputum, stridor, wheezing, other Gastrointestinal/Abdominal: Denies: no symptoms, abdomen distended, abdominal pain, black stools, tarry stools, blood in stool, constipated, diarrhea, difficulty swallowing, nausea, poor appetite, poor fluid intake, rectal bleeding , vomiting, other Genitourinary: Denies: no symptoms, burning, discharge, frequency, flank pain, hematuria, incontinence, pain, urgency, other Neurologic/Psychiatric: Denies: no symptoms, anxiety, depressed, emotional problems, headache, numbness, paresthesia, pre-existing deficit, seizure, tingling, tremors, weakness, other Endocrine: Denies: no symptoms, excessive sweating, flushing, intolerance to cold, intolerance to heat, increased hunger, increased thirst, increased urine, unexplained weight gain, unexplained weight loss, other Hematologic/Lymphatic: Denies: no symptoms, anemia, easy bleeding, easy bruising, other Allergies: Coded Allergies: No Known Allergies (Verified , 11/24/07) UNABLE TO ASSESS (Unverified , 07/15/18) Subjective trying to get out of bed, on restraints Objective Last 24 Hour Vital Signs Date Time Temp Pulse Resp B/P (MAP) Pulse Ox O2 Delivery O2 Flow Rate FiO2 07/21/18 08:00 98.8 59 18 165/73 (103) 100 98.8 07/21/18 08:00 Mechanical Ventilator 40.0 07/21/18 07:49 40 07/21/18 07:08 63 20 40 07/21/18 07:00 55 24 147/35 (72) 100 07/21/18 06:00 59 22 158/38 (78) 100 07/21/18 05:15 59 20 40 07/21/18 05:14 58 150/43 07/21/18 05:00 58 26 140/36 (70) 100 07/21/18 04:00 59 22 150/43 (78) 100 07/21/18 04:00 58 07/21/18 04:00 Mechanical Ventilator 55.0 07/21/18 03:25 58 20 40 07/21/18 03:00 57 21 147/44 (78) 100 07/21/18 02:00 60 21 138/47 (77) 100 07/21/18 01:19 65 20 40 07/21/18 01:00 57 24 136/50 (78) 100 07/21/18 00:00 98.1 59 22 145/44 (77) 100 98.1 07/21/18 00:00 Mechanical Ventilator 55.0 07/21/18 00:00 59 07/20/18 23:29 62 20 40 07/20/18 23:00 61 16 155/43 (80) 99 07/20/18 22:00 60 18 167/58 (94) 100 07/20/18 21:57 63 147/47 07/20/18 21:00 63 25 152/58 (89) 100 07/20/18 20:56 63 20 40 07/20/18 20:00 62 07/20/18 20:00 Mechanical Ventilator 55.0 07/20/18 20:00 67 21 155/52 (86) 98 07/20/18 19:28 66 20 40 07/20/18 19:00 98.5 65 20 157/42 (80) 100 98.5 07/20/18 19:00 62 17 147/47 (80) 100 07/20/18 18:23 62 17 134/54 (80) 100 07/20/18 18:00 100.4 72 17 154/47 (82) 100 100.4 07/20/18 17:18 77 28 50 07/20/18 17:03 102.2 07/20/18 17:00 100.1 74 17 148/40 (76) 100 100.1 07/20/18 16:34 171/44 07/20/18 16:33 102.8 07/20/18 16:00 76 07/20/18 16:00 102.2 75 17 148/37 (74) 100 102.2 07/20/18 16:00 Mechanical Ventilator 55.0 07/20/18 15:29 76 26 50 07/20/18 15:00 102.8 79 17 159/42 (81) 100 102.8 07/20/18 14:00 76 17 150/124 (133) 100 07/20/18 13:00 65 17 137/99 (112) 100 07/20/18 12:58 77 26 50 07/20/18 12:49 97.5 07/20/18 12:19 97.5 07/20/18 12:00 Mechanical Ventilator 55.0 07/20/18 12:00 67 17 145/82 (103) 100 07/20/18 12:00 76 07/20/18 11:59 Endotracheal Tube 50 07/20/18 11:22 78 26 50 07/20/18 11:00 67 17 157/78 (104) 100 07/20/18 10:56 Endotracheal Tube 50 07/20/18 10:00 66 17 112/56 (74) 100 07/20/18 09:14 88 26 50 07/20/18 09:00 62 17 134/54 (80) 100 Intake and Output 07/20/18 07/21/18 19:00 07:00 Intake Total 255 ml Balance 255 ml Intake Oral 0 ml IV Total 255 ml # Bowel Movements 2 1 Laboratory Tests 07/20/18 09:23: Arterial Blood pH 7.480H, Arterial Blood Partial Pressure CO2 35.4, Arterial Blood Partial Pressure O2 92.4, Arterial Blood HCO3 26.1H, Arterial Blood Oxygen Saturation 97.1, Arterial Blood Base Excess 2.7, Calvin Test Positive 07/21/18 06:17: White Blood Count 4.0L, Red Blood Count 2.72L, Hemoglobin 8.3L, Hematocrit 25.6L , Mean Corpuscular Volume 94, Mean Corpuscular Hemoglobin 30.4, Mean Corpuscular Hemoglobin Concent 32.3, Red Cell Distribution Width 15.9H, Platelet Count 81L, Mean Platelet Volume 7.1, Neutrophils (%) (Auto) , Lymphocytes (%) (Auto) , Monocytes (%) (Auto) , Eosinophils (%) (Auto) , Basophils (%) (Auto) , Neutrophils % (Manual) [Pending], Lymphocytes % (Manual) [Pending], Platelet Estimate [Pending], Platelet Morphology [Pending], Sodium Level 139, Potassium Level 3.4L, Chloride Level 99, Carbon Dioxide Level 26, Anion Gap 14, Blood Urea Nitrogen 76H, Creatinine 8.7H, Estimat Glomerular Filtration Rate 7.5, Glucose Level 82, Uric Acid 5.2, Calcium Level 9.2, Phosphorus Level 6.4H, Magnesium Level 2.2, Total Bilirubin 0.9, Aspartate Amino Transf (AST/SGOT) 37, Alanine Aminotransferase (ALT/SGPT) 27, Alkaline Phosphatase 105, Troponin I 0.142H, C-Reactive Protein, Quantitative 20.6H, Pro- B-Type Natriuretic Peptide 11762B, Total Protein 6.4, Albumin 2.7L, Globulin 3.7 , Albumin/Globulin Ratio 0.7L Height (Feet): 5 Height (Inches): 8.00 Weight (Pounds): 213 General Appearance: alert EENT: TMs normal Neck: supple Cardiovascular: regular rhythm Abdomen: soft Extremities: normal range of motion Edema: no edema noted Leg (L), no edema noted Leg (R) Edema: mild edema Neurologic: alert Skin: warm/dry Virgil Ward MD Jul 21, 2018 08:37
[2018-07-21] MEDS: Pantoprazole Inj IV SCH ×2 (08:42→20:51)
--- NOTE | 2018-07-21 09:37 | Diagnostic Imaging Report ---
Indication: Dyspnea Technique: One view of the chest Comparison: 07/20/2018 Findings: Bilateral diffuse interstitial and airspace disease is again demonstrated, right greater than left, appearing unchanged. Chronic appearing pleural thickening with calcification is again demonstrated on the left. Stable satisfactory positions of endotracheal tube and right jugular tunneled dialysis catheter. Interim placement of an enteric tube, tip projected beyond the edge of image, presumably well within the stomach. Impression: Satisfactory enteric tube placement. Otherwise, essentially unchanged over one day, findings as described
--- NOTE | 2018-07-21 09:45 | Pulmonolgy Critical Care Note ---
Critical Care - Asmt/Plan Problems: (1) Acute respiratory failure (2) Encephalopathy (3) Anemia in chronic kidney disease (CKD) (4) Dementia with psychosis (5) ESRD (end stage renal disease) on dialysis Respiratory: monitor respiratory rate, adjust FIO2, CXR Cardiac: continue to monitor HR/BP Renal: F/U I&O Infectious Disease: check cultures, other Gastrointestinal: continue feedings/current rate Endocrine: continue sliding scale insulin Hematologic: monitor H/H, transfuse if hgb<8.5 Neurologic: PRN Ativan, PRN Morphine, keep patient comfortable Prophylaxis: Heparin Notes Reviewed: drum straightener, cardio Discussed with: nurses, consultants, 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 making 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 operatorgas 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 drilling 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 - Objective Last 24 Hour Vital Signs Date Time Temp Pulse Resp B/P (MAP) Pulse Ox O2 Delivery O2 Flow Rate FiO2 07/21/18 09:00 66 16 126/33 (64) 100 07/21/18 08:47 165/73 07/21/18 08:03 58 07/21/18 08:00 98.8 59 18 165/73 (103) 100 98.8 07/21/18 08:00 Mechanical Ventilator 40.0 07/21/18 07:49 40 07/21/18 07:08 63 20 40 07/21/18 07:00 55 24 147/35 (72) 100 07/21/18 06:00 59 22 158/38 (78) 100 07/21/18 05:15 59 20 40 07/21/18 05:14 58 150/43 07/21/18 05:00 58 26 140/36 (70) 100 07/21/18 04:00 59 22 150/43 (78) 100 07/21/18 04:00 58 07/21/18 04:00 Mechanical Ventilator 55.0 07/21/18 03:25 58 20 40 07/21/18 03:00 57 21 147/44 (78) 100 07/21/18 02:00 60 21 138/47 (77) 100 07/21/18 01:19 65 20 40 07/21/18 01:00 57 24 136/50 (78) 100 07/21/18 00:00 98.1 59 22 145/44 (77) 100 98.1 07/21/18 00:00 Mechanical Ventilator 55.0 07/21/18 00:00 59 07/20/18 23:29 62 20 40 07/20/18 23:00 61 16 155/43 (80) 99 07/20/18 22:00 60 18 167/58 (94) 100 07/20/18 21:57 63 147/47 07/20/18 21:00 63 25 152/58 (89) 100 07/20/18 20:56 63 20 40 07/20/18 20:00 62 07/20/18 20:00 Mechanical Ventilator 55.0 07/20/18 20:00 67 21 155/52 (86) 98 07/20/18 19:28 66 20 40 07/20/18 19:00 98.5 65 20 157/42 (80) 100 98.5 07/20/18 19:00 62 17 147/47 (80) 100 07/20/18 18:23 62 17 134/54 (80) 100 07/20/18 18:00 100.4 72 17 154/47 (82) 100 100.4 07/20/18 17:18 77 28 50 07/20/18 17:03 102.2 07/20/18 17:00 100.1 74 17 148/40 (76) 100 100.1 07/20/18 16:34 171/44 07/20/18 16:33 102.8 07/20/18 16:00 76 07/20/18 16:00 102.2 75 17 148/37 (74) 100 102.2 07/20/18 16:00 Mechanical Ventilator 55.0 07/20/18 15:29 76 26 50 07/20/18 15:00 102.8 79 17 159/42 (81) 100 102.8 07/20/18 14:00 76 17 150/124 (133) 100 07/20/18 13:00 65 17 137/99 (112) 100 07/20/18 12:58 77 26 50 07/20/18 12:49 97.5 07/20/18 12:19 97.5 07/20/18 12:00 Mechanical Ventilator 55.0 07/20/18 12:00 67 17 145/82 (103) 100 07/20/18 12:00 76 07/20/18 11:59 Endotracheal Tube 50 07/20/18 11:22 78 26 50 07/20/18 11:00 67 17 157/78 (104) 100 07/20/18 10:56 Endotracheal Tube 50 07/20/18 10:00 66 17 112/56 (74) 100 Status: sedated Condition: critical HEENT: atraumatic Neck: full ROM Lungs: chest wall tender Heart: HR/BP unstable Abdomen: non-tender, feeding tube Decubiti: location, stage Micro: Microbiology Date/Time Source Procedure Growth Status 07/20/18 18:06 Sputum Induced Gram Stain Pending Resulted 07/20/18 18:06 Sputum Induced Sputum Culture - Preliminary NO GROWTH Resulted Accucheck: 87 Critical Care - Subjective ROS Limited/Unobtainable: No ICU Day: 2 Condition: critical EKG Rhythm: Sinus Rhythm FI02: 40 Vent Support Breath Rate: 20 Vent Support Mode: AC Vent Tidal Volume: 600 Sputum Amount: Moderate PEEP: 5.0 PIP: 31 Tube Feeding Amount: 240 I&O: Intake and Output 07/20/18 07/21/18 19:00 07:00 Intake Total 255 ml Balance 255 ml Intake Oral 0 ml IV Total 255 ml # Bowel Movements 2 1 CXR: ET in good position, bilateral infiltrate ET-Tube: 7.5 ET Position: 22 Labs: Laboratory Tests Test 07/21/18 06:17 White Blood Count 4.0 K/UL (4.8-10.8) L Red Blood Count 2.72 M/UL (4.70-6.10) L Hemoglobin 8.3 G/DL (14.2-18.0) L Hematocrit 25.6 % (42.0-52.0) L Mean Corpuscular Volume 94 FL (80-99) Mean Corpuscular Hemoglobin 30.4 PG (27.0-31.0) Mean Corpuscular Hemoglobin Concent 32.3 G/DL (32.0-36.0) Red Cell Distribution Width 15.9 % (11.6-14.8) H Platelet Count 81 K/UL (150-450) L Mean Platelet Volume 7.1 FL (6.5-10.1) Neutrophils (%) (Auto) % (45.0-75.0) Lymphocytes (%) (Auto) % (20.0-45.0) Monocytes (%) (Auto) % (1.0-10.0) Eosinophils (%) (Auto) % (0.0-3.0) Basophils (%) (Auto) % (0.0-2.0) Differential Total Cells Counted 100 Neutrophils % (Manual) 81 % (45-75) H Lymphocytes % (Manual) 9 % (20-45) L Monocytes % (Manual) 7 % (1-10) Eosinophils % (Manual) 1 % (0-3) Basophils % (Manual) 0 % (0-2) Band Neutrophils 2 % (0-8) Platelet Estimate Decreased L Platelet Morphology Normal Hypochromasia 1+ Anisocytosis 1+ Sodium Level 139 MMOL/L (136-145) Potassium Level 3.4 MMOL/L (3.5-5.1) L Chloride Level 99 MMOL/L (98-107) Carbon Dioxide Level 26 MMOL/L (21-32) Anion Gap 14 mmol/L (5-15) Blood Urea Nitrogen 76 mg/dL (7-18) H Creatinine 8.7 MG/DL (0.55-1.30) H Estimat Glomerular Filtration Rate 7.5 mL/min (>60) Glucose Level 82 MG/DL (74-106) Uric Acid 5.2 MG/DL (2.6-7.2) Calcium Level 9.2 MG/DL (8.5-10.1) Phosphorus Level 6.4 MG/DL (2.5-4.9) H Magnesium Level 2.2 MG/DL (1.8-2.4) Total Bilirubin 0.9 MG/DL (0.2-1.0) Aspartate Amino Transf (AST/SGOT) 37 U/L (15-37) Alanine Aminotransferase (ALT/SGPT) 27 U/L (12-78) Alkaline Phosphatase 105 U/L (46-116) Troponin I 0.142 ng/mL (0.000-0.056) C-Reactive Protein, Quantitative 20.6 mg/dL (0.00-0.90) H Pro-B-Type Natriuretic Peptide 71979 pg/mL (0-125) H Total Protein 6.4 G/DL (6.4-8.2) Albumin 2.7 G/DL (3.4-5.0) L Globulin 3.7 g/dL Albumin/Globulin Ratio 0.7 (1.0-2.7) L Denise Rogers MD Jul 21, 2018 09:45
--- NOTE | 2018-07-21 09:58 | Nephrology Progress Note ---
Assessment/Plan Problem List: (1) ESRD (end stage renal disease) on dialysis (2) Hyperkalemia (3) CHF (congestive heart failure) (4) Anemia in chronic kidney disease (CKD) Assessment ESRD has permacath hyperkalemia Shortness of breath, CHF NOW ACUTE RESPIRATORY FAILURE , ON VENT Encephalopathy condition: 1) ESRD (end stage renal disease) on dialysis (2) Anemia in chronic kidney disease (CKD) (3) Hypertensive kidney disease (4) Encephalopathy (5) DM (6) Hyperlipemia Plan Vent support Dialysis 07/20 and 07/22 optimize cardiac status 2 D echo noted adjust BP meds Anemia work up : ? transfusion if needed adjust BS meds phos binders asa nitrate lopressor per orders Subjective ROS Limited/Unobtainable: Yes Objective Objective Last 24 Hour Vital Signs Date Time Temp Pulse Resp B/P (MAP) Pulse Ox O2 Delivery O2 Flow Rate FiO2 07/21/18 09:00 66 16 126/33 (64) 100 07/21/18 08:47 165/73 07/21/18 08:03 58 07/21/18 08:00 98.8 59 18 165/73 (103) 100 98.8 07/21/18 08:00 Mechanical Ventilator 40.0 07/21/18 07:49 40 07/21/18 07:08 63 20 40 07/21/18 07:00 55 24 147/35 (72) 100 07/21/18 06:00 59 22 158/38 (78) 100 07/21/18 05:15 59 20 40 07/21/18 05:14 58 150/43 07/21/18 05:00 58 26 140/36 (70) 100 07/21/18 04:00 59 22 150/43 (78) 100 07/21/18 04:00 58 07/21/18 04:00 Mechanical Ventilator 55.0 07/21/18 03:25 58 20 40 07/21/18 03:00 57 21 147/44 (78) 100 07/21/18 02:00 60 21 138/47 (77) 100 07/21/18 01:19 65 20 40 07/21/18 01:00 57 24 136/50 (78) 100 07/21/18 00:00 98.1 59 22 145/44 (77) 100 98.1 07/21/18 00:00 Mechanical Ventilator 55.0 07/21/18 00:00 59 07/20/18 23:29 62 20 40 07/20/18 23:00 61 16 155/43 (80) 99 07/20/18 22:00 60 18 167/58 (94) 100 07/20/18 21:57 63 147/47 07/20/18 21:00 63 25 152/58 (89) 100 07/20/18 20:56 63 20 40 07/20/18 20:00 62 07/20/18 20:00 Mechanical Ventilator 55.0 07/20/18 20:00 67 21 155/52 (86) 98 07/20/18 19:28 66 20 40 07/20/18 19:00 98.5 65 20 157/42 (80) 100 98.5 07/20/18 19:00 62 17 147/47 (80) 100 07/20/18 18:23 62 17 134/54 (80) 100 07/20/18 18:00 100.4 72 17 154/47 (82) 100 100.4 07/20/18 17:18 77 28 50 07/20/18 17:03 102.2 07/20/18 17:00 100.1 74 17 148/40 (76) 100 100.1 07/20/18 16:34 171/44 07/20/18 16:33 102.8 07/20/18 16:00 76 07/20/18 16:00 102.2 75 17 148/37 (74) 100 102.2 07/20/18 16:00 Mechanical Ventilator 55.0 07/20/18 15:29 76 26 50 07/20/18 15:00 102.8 79 17 159/42 (81) 100 102.8 07/20/18 14:00 76 17 150/124 (133) 100 07/20/18 13:00 65 17 137/99 (112) 100 07/20/18 12:58 77 26 50 07/20/18 12:49 97.5 07/20/18 12:19 97.5 07/20/18 12:00 Mechanical Ventilator 55.0 07/20/18 12:00 67 17 145/82 (103) 100 07/20/18 12:00 76 07/20/18 11:59 Endotracheal Tube 50 07/20/18 11:22 78 26 50 07/20/18 11:00 67 17 157/78 (104) 100 07/20/18 10:56 Endotracheal Tube 50 07/20/18 10:00 66 17 112/56 (74) 100 Intake and Output 07/20/18 07/21/18 19:00 07:00 Intake Total 255 ml Balance 255 ml Intake Oral 0 ml IV Total 255 ml # Bowel Movements 2 1 Laboratory Tests 07/21/18 06:17: White Blood Count 4.0L, Red Blood Count 2.72L, Hemoglobin 8.3L, Hematocrit 25.6L , Mean Corpuscular Volume 94, Mean Corpuscular Hemoglobin 30.4, Mean Corpuscular Hemoglobin Concent 32.3, Red Cell Distribution Width 15.9H, Platelet Count 81L, Mean Platelet Volume 7.1, Neutrophils (%) (Auto) , Lymphocytes (%) (Auto) , Monocytes (%) (Auto) , Eosinophils (%) (Auto) , Basophils (%) (Auto) , Differential Total Cells Counted 100, Neutrophils % ( Manual) 81H, Lymphocytes % (Manual) 9L, Monocytes % (Manual) 7, Eosinophils % ( Manual) 1, Basophils % (Manual) 0, Band Neutrophils 2, Platelet Estimate DecreasedL, Platelet Morphology Normal, Hypochromasia 1+, Anisocytosis 1+, Sodium Level 139, Potassium Level 3.4L, Chloride Level 99, Carbon Dioxide Level 26, Anion Gap 14, Blood Urea Nitrogen 76H, Creatinine 8.7H, Estimat Glomerular Filtration Rate 7.5, Glucose Level 82, Uric Acid 5.2, Calcium Level 9.2, Phosphorus Level 6.4H, Magnesium Level 2.2, Total Bilirubin 0.9, Aspartate Amino Transf (AST/SGOT) 37, Alanine Aminotransferase (ALT/SGPT) 27, Alkaline Phosphatase 105, Troponin I 0.142H, C-Reactive Protein, Quantitative 20.6H, Pro- B-Type Natriuretic Peptide 82851H, Total Protein 6.4, Albumin 2.7L, Globulin 3.7 , Albumin/Globulin Ratio 0.7L Height (Feet): 5 Height (Inches): 8.00 Weight (Pounds): 213 General Appearance: no apparent distress EENT: other - vented Cardiovascular: bradycardia Respiratory/Chest: decreased breath sounds Abdomen: distended Objective no change Mirza Conde MD Jul 21, 2018 09:58
[2018-07-21] MEDS: Renvela 2400 mg pkt ORAL SCH ×3 (10:15→17:46)
[2018-07-21] MEDS: Nitroglycerin Patch 0.4mg TDERMAL SCH (10:15)
[2018-07-21] MEDS: Lisinopril 2.5mg tab NG SCH ×2 (10:15→17:46)
--- NOTE | 2018-07-21 13:57 | General Progress Note ---
Assessment/Plan Problem List: (1) Encephalopathy due to metabolic factor or toxin SNOMED: [id number] Assessment/Plan seroquel 100mg tid the pt lack capacity to make decisions. Subjective Date patient seen: Jul 21, 2018 Neurologic/Psychiatric: Reports: anxiety, depressed, emotional problems Allergies: Coded Allergies: No Known Allergies (Verified , 11/24/07) UNABLE TO ASSESS (Unverified , 07/15/18) Subjective the pt is agitated and confused. Objective Last 24 Hour Vital Signs Date Time Temp Pulse Resp B/P (MAP) Pulse Ox O2 Delivery O2 Flow Rate FiO2 07/21/18 13:20 30 07/21/18 13:14 61 20 30 07/21/18 13:00 68 18 140/36 (70) 100 07/21/18 12:32 63 07/21/18 12:00 98.9 65 20 140/36 (70) 99 98.9 07/21/18 12:00 40 07/21/18 12:00 Mechanical Ventilator 40.0 07/21/18 11:20 60 20 40 07/21/18 11:00 60 20 166/53 (90) 100 07/21/18 10:15 144/36 07/21/18 10:15 144/36 07/21/18 10:00 60 18 144/36 (72) 100 07/21/18 09:00 66 16 126/33 (64) 100 07/21/18 08:57 61 20 40 07/21/18 08:47 165/73 07/21/18 08:03 58 07/21/18 08:00 98.8 59 18 165/73 (103) 100 98.8 07/21/18 08:00 40 07/21/18 08:00 Mechanical Ventilator 40.0 07/21/18 07:08 63 20 40 07/21/18 07:00 55 24 147/35 (72) 100 07/21/18 06:00 59 22 158/38 (78) 100 07/21/18 05:15 59 20 40 07/21/18 05:14 58 150/43 07/21/18 05:00 58 26 140/36 (70) 100 07/21/18 04:00 59 22 150/43 (78) 100 07/21/18 04:00 58 07/21/18 04:00 Mechanical Ventilator 55.0 07/21/18 03:25 58 20 40 07/21/18 03:00 57 21 147/44 (78) 100 07/21/18 02:00 60 21 138/47 (77) 100 07/21/18 01:19 65 20 40 07/21/18 01:00 57 24 136/50 (78) 100 07/21/18 00:00 98.1 59 22 145/44 (77) 100 98.1 07/21/18 00:00 Mechanical Ventilator 55.0 07/21/18 00:00 59 07/20/18 23:29 62 20 40 07/20/18 23:00 61 16 155/43 (80) 99 07/20/18 22:00 60 18 167/58 (94) 100 07/20/18 21:57 63 147/47 07/20/18 21:00 63 25 152/58 (89) 100 07/20/18 20:56 63 20 40 07/20/18 20:00 62 07/20/18 20:00 Mechanical Ventilator 55.0 07/20/18 20:00 67 21 155/52 (86) 98 07/20/18 19:28 66 20 40 07/20/18 19:00 98.5 65 20 157/42 (80) 100 98.5 07/20/18 19:00 62 17 147/47 (80) 100 07/20/18 18:23 62 17 134/54 (80) 100 07/20/18 18:00 100.4 72 17 154/47 (82) 100 100.4 07/20/18 17:18 77 28 50 07/20/18 17:03 102.2 07/20/18 17:00 100.1 74 17 148/40 (76) 100 100.1 07/20/18 16:34 171/44 07/20/18 16:33 102.8 07/20/18 16:00 76 07/20/18 16:00 102.2 75 17 148/37 (74) 100 102.2 07/20/18 16:00 Mechanical Ventilator 55.0 07/20/18 15:29 76 26 50 07/20/18 15:00 102.8 79 17 159/42 (81) 100 102.8 07/20/18 14:00 76 17 150/124 (133) 100 Intake and Output 07/20/18 07/21/18 19:00 07:00 Intake Total 255 ml Balance 255 ml Intake Oral 0 ml IV Total 255 ml # Bowel Movements 2 1 Laboratory Tests 07/21/18 06:17: White Blood Count 4.0L, Red Blood Count 2.72L, Hemoglobin 8.3L, Hematocrit 25.6L , Mean Corpuscular Volume 94, Mean Corpuscular Hemoglobin 30.4, Mean Corpuscular Hemoglobin Concent 32.3, Red Cell Distribution Width 15.9H, Platelet Count 81L, Mean Platelet Volume 7.1, Neutrophils (%) (Auto) , Lymphocytes (%) (Auto) , Monocytes (%) (Auto) , Eosinophils (%) (Auto) , Basophils (%) (Auto) , Differential Total Cells Counted 100, Neutrophils % ( Manual) 81H, Lymphocytes % (Manual) 9L, Monocytes % (Manual) 7, Eosinophils % ( Manual) 1, Basophils % (Manual) 0, Band Neutrophils 2, Platelet Estimate DecreasedL, Platelet Morphology Normal, Hypochromasia 1+, Anisocytosis 1+, Sodium Level 139, Potassium Level 3.4L, Chloride Level 99, Carbon Dioxide Level 26, Anion Gap 14, Blood Urea Nitrogen 76H, Creatinine 8.7H, Estimat Glomerular Filtration Rate 7.5, Glucose Level 82, Uric Acid 5.2, Calcium Level 9.2, Phosphorus Level 6.4H, Magnesium Level 2.2, Total Bilirubin 0.9, Aspartate Amino Transf (AST/SGOT) 37, Alanine Aminotransferase (ALT/SGPT) 27, Alkaline Phosphatase 105, Troponin I 0.142H, C-Reactive Protein, Quantitative 20.4H, Pro- B-Type Natriuretic Peptide 92511F, Total Protein 6.4, Albumin 2.7L, Globulin 3.7 , Albumin/Globulin Ratio 0.7L 07/21/18 09:47: Arterial Blood pH 7.460H, Arterial Blood Partial Pressure CO2 34.4L, Arterial Blood Partial Pressure O2 103.9H, Arterial Blood HCO3 24.2, Arterial Blood Oxygen Saturation 97.3, Arterial Blood Base Excess 0.7, Calvin Test Positive Height (Feet): 5 Height (Inches): 8.00 Weight (Pounds): 213 Tara Ward MD Jul 21, 2018 13:57
--- NOTE | 2018-07-21 15:27 | Diagnostic Imaging Report ---
Clinical Indication: Reason For Exam: ALOC Technique: Spiral acquisitions obtained through the chest. No IV contrast utilized, referring physician request. Multiplanar reconstructions generated. Total dose length product 823.17 mGycm. CTDIvol(s) 23.44 mGy. Dose reduction achieved using automated exposure control Comparison: 11/29/2007 Findings: There is a small to moderate size right pleural effusion. There is considerable compressive atelectasis and consolidation of a significant portion of the right lower lobe. Compressive atelectatic changes of the posterior right upper lobe are also noted. Patchy areas of consolidation and groundglass opacity are seen scattered throughout the right upper lobe and within the right middle lobe. There is a small left pleural effusion. There is some posterior dependent atelectatic changes of the left lower lobe, as well as some focal consolidation near the lung base. Some atelectatic changes are seen of the posterior left upper lobe. Small amount of fluid is seen in the major fissure on the left. These findings are new since the previous exam. Previously demonstrated right upper lobe density cannot be assessed, as it is in an area currently obscured by atelectatic and consolidated lung. The heart is enlarged, more so than on the previous study. Interim placement of an aortic valve prosthesis. Interim median sternotomy. There is a right jugular tunneled dialysis catheter, tip in the high right atrium. This is a new finding. There is an endotracheal tube in place, tip approximately 6 cm above the ritu, just below the thoracic inlet. There is a nasogastric tube in place, tip projected level gastric antrum. Multiple mediastinal nodes are borderline enlarged, more so than on the previous exam, measuring up to 2.6 cm long axis dimension. There is question of a small right thyroid nodule, equivocally evident previously if real. Left axillary lymph nodes appear somewhat more abundant and prominent than on the previous study, and there is some infiltration of the axillary fat on the left. There has been interim development of marked bilateral gynecomastia. The included upper abdominal anatomy demonstrates splenomegaly. This was also evident previously in retrospect. There is diffuse thickening of the left adrenal which is not evident previously. The top of a left renal cyst is again noted. The bones demonstrate degenerative spondylosis changes. Impression: Small to moderate size right pleural effusion, small left pleural effusion Compressive atelectasis and consolidation of significant portion of the right lower lobe, compressive atelectatic changes of the posterior right upper lobe, patchy consolidation and groundglass opacity within the right upper lobe, right middle lobe, and left lower lobe, consolidation likely on the basis of infiltrates or pulmonary edema An area of involvement of cardiomegaly Postsurgical changes, as described, including interim median sternotomy, placement of aortic valve prosthesis, tunneled dialysis catheter Endotracheal and nasogastric tube, as described Abundant and prominent left axillary nodes, with infiltration of the axillary fat suggesting inflammation. Etiology/significance uncertain Bilateral marked gynecomastia. This is a new finding since previous exam of 2007 questionable small right thyroid nodule. Consider sonographic evaluation Splenomegaly, also previously demonstrated Other findings as noted, including left adrenal hypertrophy, left renal cysts, degenerative spondylosis The CT scanner at [facility] [place] is accredited by the [employer] and the scans are performed using protocols designed to limit radiation exposure to as low as reasonably achievable to attain images of sufficient resolution adequate for diagnostic evaluation.
--- NOTE | 2018-07-21 16:58 | Infectious Diseases Prog Note ---
Assessment/Plan Assessment/Plan Full consult to follow: A) 1) sepsis, fevers, pna 2) esrd, hd 3) respiratory failure 4) nkda P) 1) zosyn and vancomycin for nowe 2) f/u cultures 3) f/u chest x-ray 4) monitor labs 5) d/w Dr. Painting Subjective Constitutional: Reports: other - on vent; Denies: fever HEENT: Reports: congestion Respiratory: Reports: shortness of breath Gastrointestinal/Abdominal: Denies: nausea, vomiting, diarrhea Genitourinary: Reports: other - + becerra Allergies: Coded Allergies: No Known Allergies (Verified , 11/24/07) UNABLE TO ASSESS (Unverified , 07/15/18) Objective Vital Signs Last 24 Hour Vital Signs Date Time Temp Pulse Resp B/P (MAP) Pulse Ox O2 Delivery O2 Flow Rate FiO2 07/21/18 16:00 98.8 63 20 137/37 (70) 98 98.8 07/21/18 16:00 Mechanical Ventilator 30.0 07/21/18 15:40 62 07/21/18 15:06 60 20 30 07/21/18 15:00 61 20 122/41 (68) 100 07/21/18 14:00 63 20 161/50 (87) 99 07/21/18 13:20 30 07/21/18 13:14 61 20 30 07/21/18 13:00 68 18 140/36 (70) 100 07/21/18 12:32 63 07/21/18 12:00 98.9 65 20 140/36 (70) 99 98.9 07/21/18 12:00 40 07/21/18 12:00 Mechanical Ventilator 40.0 07/21/18 11:20 60 20 40 07/21/18 11:00 60 20 166/53 (90) 100 07/21/18 10:15 144/36 07/21/18 10:15 144/36 07/21/18 10:00 60 18 144/36 (72) 100 07/21/18 09:00 66 16 126/33 (64) 100 07/21/18 08:57 61 20 40 07/21/18 08:47 165/73 07/21/18 08:03 58 07/21/18 08:00 98.8 59 18 165/73 (103) 100 98.8 07/21/18 08:00 40 07/21/18 08:00 Mechanical Ventilator 40.0 07/21/18 07:08 63 20 40 07/21/18 07:00 55 24 147/35 (72) 100 07/21/18 06:00 59 22 158/38 (78) 100 07/21/18 05:15 59 20 40 07/21/18 05:14 58 150/43 07/21/18 05:00 58 26 140/36 (70) 100 07/21/18 04:00 59 22 150/43 (78) 100 07/21/18 04:00 58 07/21/18 04:00 Mechanical Ventilator 55.0 07/21/18 03:25 58 20 40 07/21/18 03:00 57 21 147/44 (78) 100 07/21/18 02:00 60 21 138/47 (77) 100 07/21/18 01:19 65 20 40 07/21/18 01:00 57 24 136/50 (78) 100 07/21/18 00:00 98.1 59 22 145/44 (77) 100 98.1 07/21/18 00:00 Mechanical Ventilator 55.0 07/21/18 00:00 59 07/20/18 23:29 62 20 40 07/20/18 23:00 61 16 155/43 (80) 99 07/20/18 22:00 60 18 167/58 (94) 100 07/20/18 21:57 63 147/47 07/20/18 21:00 63 25 152/58 (89) 100 07/20/18 20:56 63 20 40 07/20/18 20:00 62 07/20/18 20:00 Mechanical Ventilator 55.0 07/20/18 20:00 67 21 155/52 (86) 98 07/20/18 19:28 66 20 40 07/20/18 19:00 98.5 65 20 157/42 (80) 100 98.5 07/20/18 19:00 62 17 147/47 (80) 100 07/20/18 18:23 62 17 134/54 (80) 100 07/20/18 18:00 100.4 72 17 154/47 (82) 100 100.4 07/20/18 17:18 77 28 50 9/25/18 17:03 102.2 07/20/18 17:00 100.1 74 17 148/40 (76) 100 100.1 Height (Feet): 5 Height (Inches): 8.00 Weight (Pounds): 213 HEENT: normocephalic, atraumatic, other - oral - intubated Respiratory/Chest: crackles/rales, rhonchi - bilaterally Cardiovascular: normal rate, regular rhythm, no gallop/murmur Abdomen: normal bowel sounds, soft, non tender, no organomegaly, non distended Microbiology Date/Time Source Procedure Growth Status 07/20/18 18:06 Sputum Induced Gram Stain - Final Resulted 07/20/18 18:06 Sputum Induced Sputum Culture - Preliminary NO GROWTH Resulted Laboratory Tests Test 07/21/18 06:17 07/21/18 09:47 White Blood Count 4.0 K/UL (4.8-10.8) L Red Blood Count 2.72 M/UL (4.70-6.10) L Hemoglobin 8.3 G/DL (14.2-18.0) L Hematocrit 25.6 % (42.0-52.0) L Mean Corpuscular Volume 94 FL (80-99) Mean Corpuscular Hemoglobin 30.4 PG (27.0-31.0) Mean Corpuscular Hemoglobin Concent 32.3 G/DL (32.0-36.0) Red Cell Distribution Width 15.9 % (11.6-14.8) H Platelet Count 81 K/UL (150-450) L Mean Platelet Volume 7.1 FL (6.5-10.1) Neutrophils (%) (Auto) % (45.0-75.0) Lymphocytes (%) (Auto) % (20.0-45.0) Monocytes (%) (Auto) % (1.0-10.0) Eosinophils (%) (Auto) % (0.0-3.0) Basophils (%) (Auto) % (0.0-2.0) Differential Total Cells Counted 100 Neutrophils % (Manual) 81 % (45-75) H Lymphocytes % (Manual) 9 % (20-45) L Monocytes % (Manual) 7 % (1-10) Eosinophils % (Manual) 1 % (0-3) Basophils % (Manual) 0 % (0-2) Band Neutrophils 2 % (0-8) Platelet Estimate Decreased L Platelet Morphology Normal Hypochromasia 1+ Anisocytosis 1+ Sodium Level 139 MMOL/L (136-145) Potassium Level 3.4 MMOL/L (3.5-5.1) L Chloride Level 99 MMOL/L (98-107) Carbon Dioxide Level 26 MMOL/L (21-32) Anion Gap 14 mmol/L (5-15) Blood Urea Nitrogen 76 mg/dL (7-18) H Creatinine 8.7 MG/DL (0.55-1.30) H Estimat Glomerular Filtration Rate 7.5 mL/min (>60) Glucose Level 82 MG/DL (74-106) Uric Acid 5.2 MG/DL (2.6-7.2) Calcium Level 9.2 MG/DL (8.5-10.1) Phosphorus Level 6.4 MG/DL (2.5-4.9) H Magnesium Level 2.2 MG/DL (1.8-2.4) Total Bilirubin 0.9 MG/DL (0.2-1.0) Aspartate Amino Transf (AST/SGOT) 37 U/L (15-37) Alanine Aminotransferase (ALT/SGPT) 27 U/L (12-78) Alkaline Phosphatase 105 U/L (46-116) Troponin I 0.142 ng/mL (0.000-0.056) C-Reactive Protein, Quantitative 20.4 mg/dL (0.00-0.90) H Pro-B-Type Natriuretic Peptide 30930 pg/mL (0-125) H Total Protein 6.4 G/DL (6.4-8.2) Albumin 2.7 G/DL (3.4-5.0) L Globulin 3.7 g/dL Albumin/Globulin Ratio 0.7 (1.0-2.7) L Arterial Blood pH 7.460 (7.350-7.450) Arterial Blood Partial Pressure CO2 34.4 mmHg (35.0-45.0) L Arterial Blood Partial Pressure O2 103.9 mmHg (75.0-100.0) H Arterial Blood HCO3 24.2 mmol/L (22.0-26.0) Arterial Blood Oxygen Saturation 97.3 % (92.0-98.0) Arterial Blood Base Excess 0.7 Calvin Test Positive Current Medications Medications (Trade) Dose Ordered Sig/Praveen Route PRN Reason Start Time Stop Time Status Last Admin Dose Admin Acetaminophen (Tylenol) 650 mg Q4H PRN ORAL fever 07/20/18 08:15 08/15/18 08:14 07/21/18 14:47 Aspirin (ASA) 162 mg DAILY NG 07/22/18 09:00 08/21/18 08:59 Dextrose (Dextrose 50%) 25 ml Q1H PRN IV Hypoglycemia 07/20/18 08:15 Dextrose (Dextrose 50%) 50 ml Q1H PRN IV hypoglycemia 07/20/18 08:15 Epoetin Yao (Procrit (for ESRD on dialysis)) 10,000 units [id number]-[id number]-[id number] SUBQ 07/21/18 21:00 08/15/18 20:59 Haloperidol Lactate (Haldol) 5 mg Q6H PRN IM Agitation 07/20/18 08:15 08/16/18 08:14 Hydralazine HCl (Apresoline) 10 mg Q4H PRN IV SBP > OR = 160mmHg 07/20/18 15:00 08/19/18 14:59 07/21/18 08:47 Insulin Aspart (NovoLOG) BEFORE MEALS AND HS SUBQ 07/20/18 11:30 08/16/18 20:59 Iron Sucrose 100 mg/Sodium Chloride 55 ml @ 200 mls/hr BEDTIME IV 07/20/18 21:00 07/25/18 21:17 07/20/18 21:59 Lisinopril (Zestril) 2.5 mg BID NG 07/21/18 10:30 08/20/18 10:29 07/21/18 10:15 Lorazepam (Ativan 2mg/ml 1ml) 2 mg Q4H PRN IV For Anxiety 07/20/18 09:45 07/27/18 09:29 07/20/18 10:38 Metoprolol Tartrate (Lopressor) 12.5 mg Q12HR NG 07/21/18 21:00 08/20/18 20:59 Morphine Sulfate (Morphine Sulfate) 4 mg Q4H PRN IVP For Pain 07/20/18 09:30 07/27/18 09:29 07/20/18 21:57 Nitroglycerin (Ntg) 1 patch DAILY TDERMAL 07/21/18 10:30 08/20/18 10:29 07/21/18 10:15 Pantoprazole (Protonix) 40 mg Q12HR IV 07/21/18 21:00 08/19/18 08:59 Piperacillin Sod/ Tazobactam Sod 2.25 gm/Dextrose 55 ml @ 110 mls/hr Q8H IV 07/20/18 19:30 07/27/18 19:29 07/21/18 12:03 Quetiapine Fumarate (SEROquel) 25 mg Q6H PRN ORAL For Anxiety 07/20/18 08:30 08/15/18 08:29 Quetiapine Fumarate (SEROquel) 100 mg Q8HR ORAL 07/20/18 14:00 08/15/18 13:59 07/21/18 14:46 Sevelamer Carbonate (Renvela) 2,400 mg THREE TIMES A DAY ORAL 07/20/18 09:00 08/15/18 12:59 07/21/18 13:10 Vancomycin HCl (Vanco rx to dose) 1 ea DAILY PRN MISC Per rx protocol 07/20/18 18:00 08/19/18 17:59 Zolpidem Tartrate (Ambien) 5 mg HSPRN PRN ORAL Insomnia 07/20/18 21:00 07/23/18 20:59 Olinda Poon MD Jul 21, 2018 16:58
[2018-07-21] MEDS: Metoprolol Tartrate 12.5mg TAB NG SCH (20:53)
[2018-07-21] MEDS: Epogen (for ESRD on dialysis) SUBQ SCH (20:53)
[2018-07-21] MEDS ORDERED: Epogen (for ESRD on dialysis) SUBQ SCH (21:00)
--- NOTE | 2018-07-21 23:45 | Consultation ---
DATE OF CONSULTATION: NOTE: BRANDEN DICTATION Olinda Poon M.D. DR: RICO JOB#: [id number] CC:
[2018-07-22] VITALS (25 sets, daily range): BP systolic 110–186; BP diastolic 32–115
--- NOTE | 2018-07-22 00:15 | Consultation ---
DATE OF CONSULTATION: 07/21/2018 INFECTIOUS DISEASE CONSULTATION CONSULTING PHYSICIAN: Olinda Poon M.D. ATTENDING PHYSICIAN: Pippa Jay M.D. REFERRING PHYSICIAN: Kamilla Padgett M.D. REASON FOR CONSULTATION: Fevers, sepsis, and pneumonia. CHIEF COMPLAINT: The patient's chief complaint coming in to the hospital is chest pain. The patient has end-stage renal disease. HISTORY OF PRESENT ILLNESS: This is a 68-year-old male, who comes in to [facility] and was noted initially that the patient came in with chest pain and shortness of breath. The patient is intubated on a vent. He is currently not on pressors. The patient became febrile and there was concern that the patient was septic. CT scan and chest x-ray shows what looks like effusions, atelectasis, and consolidations. The patient is at high risk for aspiration and healthcare-acquired pneumonia based on being intubated. The patient is likely septic with leukopenia and fevers of up to 102.8. Infectious Disease consultation is requested for antibiotic management. Yesterday, I saw the patient and started on vancomycin and Zosyn. MAR was noted. Orders were noted. Notes and records were reviewed. Case was discussed with Dr. Kohli. The patient is currently in the intensive care unit. PAST MEDICAL HISTORY: The patient's past medical history includes the following. The patient has a past medical history of end-stage renal disease, on hemodialysis; history of hypertension, gastroesophageal reflux disease, and dementia. He came in with shortness of breath and chest pain. He has anemia and leukopenia at this time. He also has encephalopathy. He also has hyperlipidemia, looks like diabetes, and hypertensive kidney disease. MEDICATIONS: Upon reviewing the MAR, he is on the following medications. He is on aspirin . He is on Epogen. He is on Protonix, metoprolol, lisinopril, and nitroglycerin. He is on zolpidem. He is on vancomycin and Zosyn. He is on hydralazine, quetiapine, insulin, lorazepam, morphine, sevelamer, acetaminophen, intravenous fluids, and haloperidol. Outside medication noted and reconciliated. ALLERGIES: No known drug allergies. No antibiotic allergies. SOCIAL HISTORY: Negative for smoking, alcohol, or drug abuse. FAMILY HISTORY: Per the record, there is no mention of exposure to tuberculosis or cancer. REVIEW OF SYSTEMS: CONSTITUTIONAL: He is lethargic and weak. HEAD AND NECK: He is orally intubated. CARDIAC: He is not on pressors. GASTROINTESTINAL: No nausea, vomiting, or diarrhea. GENITOURINARY: I think he is a hemodialysis patient. PULMONARY: On a vent. He has some secretions. SKIN: No new rash. NEUROLOGIC: No seizures. Generalized weakness noted. He is poorly responsive. He was febrile yesterday and febrile today . No pressors. PHYSICAL EXAMINATION: VITAL SIGNS: Currently, temperature is 98.8, pulse rate 63, respiratory rate 20, blood pressure 137/37, and saturation 98% and FiO2 looks like 30%. T-max is 102.8. GENERAL: Lethargic and weak. HEAD AND NECK: Orally intubated. Eye exam, no icterus. Normocephalic. No obvious jugular venous distention. LUNGS: Bilateral rhonchi, rales, and crackles. HEART: Regular. No obvious gallop or murmur. ABDOMEN: Soft. Positive bowel sounds. Could not assess tenderness. SKIN: No rash. MUSCULOSKELETAL: No effusions. Legs are without cellulitis. PERIPHERAL VASCULAR: No cyanosis or gangrene. GENITOURINARY: He is a hemodialysis patient. LINE SITES: Without phlebitis. NEUROLOGIC: Generalized weakness. Poorly responsive. LABORATORY AND DIAGNOSTIC DATA: Laboratory data is as follows: White count 4.0, hemoglobin 8.3, and platelet count 81,000. Creatinine is 8.7. LFTs were noted. Hepatitis serology was negative. Sputum culture so far shows no growth. Blood cultures looks like pending. Urine culture pending. , they were able to get a urine culture. Chest x-ray showed no change in interstitial airspace disease from 07/21/2018. CT scan from 07/21/2018 showed atelectasis and consolidations especially in the right lower lobe. In posterior right lobe, patchy consolidation, ground glass appearance, and also right upper lobe and right middle lobe and lower lobe and also left lower lobe consolidations likely on the basis of infiltration and pulmonary edema. Report was noted. ASSESSMENT AND PLAN: 1. The patient is septic with fevers of 102.8, respiratory failure, and leukopenia. Most likely, this patient has some type of aspiration versus healthcare-acquired pneumonia. The patient has been on a vent. At this time, we will continue vancomycin and Zosyn for treatment of sepsis and pneumonia including healthcare-acquired pneumonia and aspiration pneumonia too. Continue vancomycin and Zosyn for MRSA gram-negative aspiration coverage and anaerobic coverage. Check cultures and laboratories. Follow up chest x-ray. Check final sputum culture and blood cultures. Watch the patient's temperatures. 2. Respiratory failure, on vent. 3. End-stage renal disease, on hemodialysis. 4. Intensive care unit care. 5. Skin care protocol. 6. Hypertension. 7. Hypertensive kidney disease. 8. Gastroesophageal reflux disease. 9. Diabetes. 10. Hyperlipidemia. 11. Anemia. 12. Dementia. 13. Allergies are negative. 14. Family history is noncontributory. 15. Social history is negative. 16. MAR was noted. 17. Case was discussed with RN. 18. Notes and records were noted. 19. Orders were entered. 20. Continue treatment per primary consultants. Olinda Poon M.D. DR: RICO JOB#: [id number] CC:
[2018-07-22] MEDS: LORazepam Inj 2mg/ml 1ml IV PRN ×2 (01:46→11:56)
[2018-07-22] MEDS: Zosyn 2.25 gm in D5W 55ml IV SCH ×3 (04:20→20:30)
[2018-07-22] MEDS: NovoLOG Insulin Flexpen SUBQ SCH ×4 (05:43→23:52)
[2018-07-22 05:48] LABS: HEMOGLOBIN 8.5 G/DL (14.2-18.0); MEAN CORPUSCULAR VOLUME 93 FL (80-99); PLATELET COUNT 93 K/UL (150-450); RED BLOOD COUNT 2.79 M/UL (4.70-6.10); RED CELL DISTRIBUTION WIDTH 15.3 % (11.6-14.8)
[2018-07-22 06:22] LABS: ALANINE AMINOTRANSFERASE 22 U/L (12-78); ALBUMIN 2.5 G/DL (3.4-5.0); ALBUMIN/GLOBULIN RATIO 0.7 (1.0-2.7); ALKALINE PHOSPHATASE 100 U/L (46-116); ANION GAP 12 mmol/L (5-15); ASPARTATE AMINO TRANSFERASE 29 U/L (15-37); BILIRUBIN,TOTAL 0.6 MG/DL (0.2-1.0); BLOOD UREA NITROGEN 85 mg/dL (7-18); CALCIUM 8.3 MG/DL (8.5-10.1); CARBON DIOXIDE 26 MMOL/L (21-32); CHLORIDE 99 MMOL/L (98-107); POTASSIUM 3.3 MMOL/L (3.5-5.1); SODIUM 137 MMOL/L (136-145)
[2018-07-22 06:43] LABS: PHOSPHORUS 6.7 MG/DL (2.5-4.9)
--- NOTE | 2018-07-22 07:47 | General Progress Note ---
Assessment/Plan Assessment/Plan # Pancytopenia potentially reactive process versus meds related or related to bone marrow process, hepatitis and hiv both reviewed and are negative, has been acute onset since admission --> stable to improving --> us of the abdomen shows splenomegaly, continues to persist --> at this time, does not need a bone marrow biopsy --> on IV iron and epogen sq --> cbc has been reviewed daily # Anemia of chronic disease has been evaluated and reviewed, does have evidence of iron deficiency, has been given iron once d/c --> po iron once discharged --> ok for epogen --> on iv iron --> appreciate renal recs --> on HD prn # Sharp chest pain shortness of breath --> ddx: ACS vs. CHF vs. pneumonia vs. gastritis/GERD vs pneumothorax versus fluid overload/end-stage renal disease --> renal consulted # AZAM on CKD --> appreciate renal recs # ESRD as per nephro --> on hd # + cardiomeghaly with PVC Greatly appreciate consultation! Subjective Constitutional: Denies: no symptoms, chills, diaphoresis, fever, malaise, weakness, other HEENT: Denies: no symptoms, eye pain, blurred vision, tearing, double vision, ear pain, ear discharge, nose pain, nose congestion, throat pain, throat swelling, mouth pain, mouth swelling, other Cardiovascular: Denies: no symptoms, chest pain, edema, irregular heart rate, lightheadedness, palpitations, syncope, other Respiratory: Denies: no symptoms, cough, orthopnea, shortness of breath, SOB with excertion, SOB at rest, sputum, stridor, wheezing, other Gastrointestinal/Abdominal: Denies: no symptoms, abdomen distended, abdominal pain, black stools, tarry stools, blood in stool, constipated, diarrhea, difficulty swallowing, nausea, poor appetite, poor fluid intake, rectal bleeding , vomiting, other Genitourinary: Denies: no symptoms, burning, discharge, frequency, flank pain, hematuria, incontinence, pain, urgency, other Neurologic/Psychiatric: Denies: no symptoms, anxiety, depressed, emotional problems, headache, numbness, paresthesia, pre-existing deficit, seizure, tingling, tremors, weakness, other Endocrine: Denies: no symptoms, excessive sweating, flushing, intolerance to cold, intolerance to heat, increased hunger, increased thirst, increased urine, unexplained weight gain, unexplained weight loss, other Hematologic/Lymphatic: Denies: no symptoms, anemia, easy bleeding, easy bruising, other Allergies: Coded Allergies: No Known Allergies (Verified , 11/24/07) UNABLE TO ASSESS (Unverified , 07/15/18) Subjective trying to get out of bed, anemia panel reviewed Objective Last 24 Hour Vital Signs Date Time Temp Pulse Resp B/P (MAP) Pulse Ox O2 Delivery O2 Flow Rate FiO2 07/22/18 07:16 58 20 30 07/22/18 07:00 57 18 135/33 (67) 98 07/22/18 06:17 59 20 130/33 (65) 98 07/22/18 06:00 59 20 130/33 (65) 98 07/22/18 05:00 65 20 30 07/22/18 05:00 65 20 158/57 (90) 99 07/22/18 04:00 82 07/22/18 04:00 98.6 82 22 162/46 (84) 99 98.6 07/22/18 04:00 Mechanical Ventilator 30.0 07/22/18 04:00 30 07/22/18 03:05 72 20 30 07/22/18 03:00 78 24 165/53 (90) 98 07/22/18 02:00 69 22 150/44 (79) 99 07/22/18 01:25 61 20 30 07/22/18 01:00 63 20 142/37 (72) 97 07/22/18 00:00 99.2 64 24 150/38 (75) 98 99.2 07/22/18 00:00 Mechanical Ventilator 30.0 07/22/18 00:00 64 07/22/18 00:00 30 07/21/18 23:00 81 21 116/33 (60) 97 07/21/18 22:53 80 20 30 07/21/18 22:00 65 20 133/34 (67) 98 07/21/18 21:11 62 20 30 07/21/18 21:00 64 19 132/35 (67) 99 07/21/18 20:53 63 107/86 07/21/18 20:00 63 07/21/18 20:00 99.0 63 20 107/86 (93) 98 99.0 07/21/18 20:00 30 07/21/18 20:00 Mechanical Ventilator 30.0 07/21/18 19:08 63 20 30 07/21/18 19:00 63 20 120/36 (64) 100 07/21/18 18:00 65 16 123/36 (65) 99 07/21/18 17:46 139/35 07/21/18 17:00 72 16 139/35 (69) 98 07/21/18 16:58 62 21 30 07/21/18 16:00 98.8 63 20 137/37 (70) 98 98.8 07/21/18 16:00 Mechanical Ventilator 30.0 07/21/18 15:40 62 07/21/18 15:06 60 20 30 07/21/18 15:00 61 20 122/41 (68) 100 07/21/18 14:00 63 20 161/50 (87) 99 07/21/18 13:20 30 07/21/18 13:14 61 20 30 07/21/18 13:00 68 18 140/36 (70) 100 07/21/18 12:32 63 07/21/18 12:00 98.9 65 20 140/36 (70) 99 98.9 07/21/18 12:00 40 07/21/18 12:00 Mechanical Ventilator 40.0 07/21/18 11:20 60 20 40 07/21/18 11:00 60 20 166/53 (90) 100 07/21/18 10:15 144/36 07/21/18 10:15 144/36 07/21/18 10:00 60 18 144/36 (72) 100 07/21/18 09:00 66 16 126/33 (64) 100 07/21/18 08:57 61 20 40 07/21/18 08:47 165/73 07/21/18 08:03 58 07/21/18 08:00 98.8 59 18 165/73 (103) 100 98.8 07/21/18 08:00 40 07/21/18 08:00 Mechanical Ventilator 40.0 Intake and Output 07/21/18 07/22/18 19:00 07:00 Intake Total 375 ml 705 ml Output Total 400 ml 320 ml Balance -25 ml 385 ml Free Water 100 ml 60 ml IV Total 55 ml 165 ml Tube Feeding 220 ml 480 ml Output Urine Total 400 ml 320 ml # Voids 2 # Bowel Movements 1 Laboratory Tests 07/21/18 09:47: Arterial Blood pH 7.460H, Arterial Blood Partial Pressure CO2 34.4L, Arterial Blood Partial Pressure O2 103.9H, Arterial Blood HCO3 24.2, Arterial Blood Oxygen Saturation 97.3, Arterial Blood Base Excess 0.7, Calvin Test Positive 07/22/18 05:00: White Blood Count 5.0, Red Blood Count 2.79L, Hemoglobin 8.5L, Hematocrit 26.0L , Mean Corpuscular Volume 93, Mean Corpuscular Hemoglobin 30.7, Mean Corpuscular Hemoglobin Concent 32.8, Red Cell Distribution Width 15.3H, Platelet Count 93L, Mean Platelet Volume 8.1, Neutrophils (%) (Auto) , Lymphocytes (%) (Auto) , Monocytes (%) (Auto) , Eosinophils (%) (Auto) , Basophils (%) (Auto) , Sodium Level 137, Potassium Level 3.3L, Chloride Level 99 , Carbon Dioxide Level 26, Anion Gap 12, Blood Urea Nitrogen 85H, Creatinine 10.0H, Estimat Glomerular Filtration Rate 6.3, Glucose Level 87, Uric Acid 6.0, Calcium Level 8.3L, Phosphorus Level 6.7H, Magnesium Level 2.2, Total Bilirubin 0.6, Aspartate Amino Transf (AST/SGOT) 29, Alanine Aminotransferase (ALT/SGPT) 22, Alkaline Phosphatase 100, Troponin I 0.121H, Pro-B-Type Natriuretic Peptide 05918P, Total Protein 6.3L, Albumin 2.5L, Globulin 3.8, Albumin/Globulin Ratio 0.7L, Random Vancomycin Level 14.4 Height (Feet): 5 Height (Inches): 8.00 Weight (Pounds): 214 General Appearance: confused EENT: normal ENT inspection Neck: supple Cardiovascular: regular rhythm Respiratory/Chest: no respiratory distress Abdomen: no organomegaly Extremities: non-tender Edema: 1+ Leg (L), 1+ Leg (R) Edema: mild edema Virgil Ward MD Jul 22, 2018 07:47
[2018-07-22] MEDS: Pantoprazole Inj IV SCH ×2 (08:26→20:30)
[2018-07-22] MEDS: Renvela 2400 mg pkt ORAL SCH ×3 (08:26→17:47)
[2018-07-22] MEDS: Metoprolol Tartrate 12.5mg TAB NG SCH ×2 (08:27→20:31)
[2018-07-22] MEDS: Lisinopril 2.5mg tab NG SCH (08:27)
[2018-07-22] MEDS: Nitroglycerin Patch 0.4mg TDERMAL SCH (08:28)
[2018-07-22] MEDS ORDERED: Aspirin Baby 81mg NG SCH (09:00)
--- NOTE | 2018-07-22 09:36 | General Progress Note ---
Assessment/Plan Problem List: (1) Acute hypercapnic respiratory failure ICD Codes: J96.02 - Acute respiratory failure with hypercapnia SNOMED: 390134044 (2) Severe sepsis ICD Codes: A41.9 - Sepsis, unspecified organism; R65.20 - Severe sepsis without septic shock SNOMED: 25965411 (3) Hyperkalemia ICD Codes: E87.5 - Hyperkalemia SNOMED: 04154682 (4) Acute on chronic diastolic (congestive) heart failure ICD Codes: I50.33 - Acute on chronic diastolic (congestive) heart failure SNOMED: 10513456, 937977309 (5) Acute metabolic encephalopathy ICD Codes: G93.41 - Metabolic encephalopathy SNOMED: 02966785, 283661368 (6) ESRD (end stage renal disease) on dialysis ICD Codes: N18.6 - End stage renal disease; Z99.2 - Dependence on renal dialysis SNOMED: 830339231 (7) HTN (hypertension) ICD Codes: I10 - Essential (primary) hypertension SNOMED: 15246874 (8) Hypertensive heart and renal disease ICD Codes: I13.10 - Hypertensive heart and chronic kidney disease without heart failure, with stage 1 through stage 4 chronic kidney disease, or unspecified chronic kidney disease SNOMED: 48501285 (9) Anemia in ESRD (end-stage renal disease) ICD Codes: N18.6 - End stage renal disease; D63.1 - Anemia in chronic kidney disease SNOMED: 51928739, 582867760 (10) Dementia with psychosis ICD Codes: F03.91 - Unspecified dementia with behavioral disturbance SNOMED: 83623889, 87105850 (11) Pancytopenia ICD Codes: D61.818 - Other pancytopenia SNOMED: 097944698 Status: stable Assessment/Plan # Acute hypercapnic respiratory failure - possibly 2/2 aspiration event vs PNA # Health care associated pneumonia - Pulm consulted - Pt now intubated and on vent since 07/20 - Wean vent as tolerated - Daily SBTs, sedation holidays - Repeat CXR - ID consulted - Empiric vanco and zosyn 07/20- - Check CT chest # Severe sepsis # Health care associated pneumonia - ID consulted - Empiric vanco and zosyn 07/20- - F/u sputum culture - Check CT chest # Severe hyperkalemia - K 8.4 on admit, now improved s/p HD # Metabolic acidosis # ESRD on HD - Transferred out of ICU on 07/17/18 - Pulm/critical care consulted - Renal consulted - cont HD per renal. Last HD yesterday - Cont renvelcorby, nephrovite # Acute on chronic diastolic heart failure - Cardiology consulted - Check TTE --> EF wnl - HD for volume removal # NSTEMI type 2 - likely demand ischemia in setting of volume overload - Cardiology consulted - Trend trop/EKG - TTE reviewed and showed normal EF # Acute metabolic encephalopathy - likely in setting of metabolic derangements from renal dysfcn # Dementia with psychosis - Psych consulted - ctm # HTN # Hypertensive heart and renal disease - Cont labetolol # Pancytopenia # Anemia in ESRD # Thrombocytopenia # Leukopenia - Heme/onc consulted - EPO per renal - IV venofer - s/p 1U pRBC on 07/17/18 - ctm CBC DVT Prophylaxis: SCD, HSQ Code Status: Full Hospital Classification Declaration: Based on this initial evaluation, and depending on the patient's clinical course, I anticipate that this patient will require hospitalization for 3-4 days for volume overload, severe hyperK and close respiratory/hemodynamic monitoring. Disposition: Once the patient is stable to leave the hospital, I anticipate the patient will likely be discharged to the following environment: back to SNF At the time of my involvement, the patient's condition was critical with high potential for and/or physiologic deterioration secondary to acute respiratory failure, severe sepsis as delineated in the note above. On the above date of service, I spent a total of 45 minutes in the ICU evaluating, managing, and providing critical care services to this patient, including time spent documenting these activities, counseling patient/family, and coordinating care. Critical care services performed include: Telemetry Review Hemodynamic measurement interpretation Laboratory data review and interpretation Ventilator setting review, management, and adjustment Discussion of care plans with patient, family, and/or surrogate decision makers Discussion of patient's care with primary medical team, surgical team, and/or consulting service Decision to obtain further radiologic evaluation, after consideration of risk/ benefit ratio Decision to perform invasive procedure, after consideration of risk/benefit ratio CRRT management including evaluation for appropriateness Review of most recent microbiology results with assessment and modification of antimicrobial coverage Discussion of patient's code status and further advancement towards the ultimate goals of care Plan outlined above discussed with patient/family, HOSIERY LOOPER, ICU team, and involved physicians/consultants. Time of note may not reflect time of encounter. Subjective Date patient seen: Jul 21, 2018 Time patient seen: 12:00 ROS Limited/Unobtainable: No Allergies: Coded Allergies: No Known Allergies (Verified , 11/24/07) UNABLE TO ASSESS (Unverified , 07/15/18) Subjective No acute o/n events Temp to 102 yesterday evening, afebrile this AM Pt intubated, sedated but arousable Objective Last 24 Hour Vital Signs Date Time Temp Pulse Resp B/P (MAP) Pulse Ox O2 Delivery O2 Flow Rate FiO2 07/22/18 09:25 Mechanical Ventilator 30 07/22/18 09:12 62 20 30 07/22/18 09:00 61 19 141/41 (74) 100 07/22/18 08:28 127/34 07/22/18 08:27 127/34 07/22/18 08:27 61 127/34 07/22/18 08:02 60 07/22/18 08:00 Mechanical Ventilator 30.0 07/22/18 08:00 30 07/22/18 08:00 99.1 61 13 127/34 (65) 99 99.1 07/22/18 07:16 58 20 30 07/22/18 07:00 57 18 135/33 (67) 98 07/22/18 06:17 59 20 130/33 (65) 98 07/22/18 06:00 59 20 130/33 (65) 98 07/22/18 05:00 65 20 30 07/22/18 05:00 65 20 158/57 (90) 99 07/22/18 04:00 82 07/22/18 04:00 98.6 82 22 162/46 (84) 99 98.6 07/22/18 04:00 Mechanical Ventilator 30.0 07/22/18 04:00 30 07/22/18 03:05 72 20 30 07/22/18 03:00 78 24 165/53 (90) 98 07/22/18 02:00 69 22 150/44 (79) 99 07/22/18 01:25 61 20 30 07/22/18 01:00 63 20 142/37 (72) 97 07/22/18 00:00 99.2 64 24 150/38 (75) 98 99.2 07/22/18 00:00 Mechanical Ventilator 30.0 07/22/18 00:00 64 07/22/18 00:00 30 07/21/18 23:00 81 21 116/33 (60) 97 07/21/18 22:53 80 20 30 07/21/18 22:00 65 20 133/34 (67) 98 07/21/18 21:11 62 20 30 07/21/18 21:00 64 19 132/35 (67) 99 07/21/18 20:53 63 107/86 07/21/18 20:00 63 07/21/18 20:00 99.0 63 20 107/86 (93) 98 99.0 07/21/18 20:00 30 07/21/18 20:00 Mechanical Ventilator 30.0 07/21/18 19:08 63 20 30 07/21/18 19:00 63 20 120/36 (64) 100 07/21/18 18:00 65 16 123/36 (65) 99 07/21/18 17:46 139/35 07/21/18 17:00 72 16 139/35 (69) 98 07/21/18 16:58 62 21 30 07/21/18 16:00 98.8 63 20 137/37 (70) 98 98.8 07/21/18 16:00 Mechanical Ventilator 30.0 07/21/18 15:40 62 07/21/18 15:06 60 20 30 07/21/18 15:00 61 20 122/41 (68) 100 07/21/18 14:00 63 20 161/50 (87) 99 07/21/18 13:20 30 07/21/18 13:14 61 20 30 07/21/18 13:00 68 18 140/36 (70) 100 07/21/18 12:32 63 07/21/18 12:00 98.9 65 20 140/36 (70) 99 98.9 07/21/18 12:00 40 07/21/18 12:00 Mechanical Ventilator 40.0 07/21/18 11:20 60 20 40 07/21/18 11:00 60 20 166/53 (90) 100 07/21/18 10:15 144/36 07/21/18 10:15 144/36 07/21/18 10:00 60 18 144/36 (72) 100 Intake and Output 07/21/18 07/22/18 19:00 07:00 Intake Total 375 ml 705 ml Output Total 400 ml 320 ml Balance -25 ml 385 ml Free Water 100 ml 60 ml IV Total 55 ml 165 ml Tube Feeding 220 ml 480 ml Output Urine Total 400 ml 320 ml # Voids 2 # Bowel Movements 1 Laboratory Tests 07/21/18 09:47: Arterial Blood pH 7.460H, Arterial Blood Partial Pressure CO2 34.4L, Arterial Blood Partial Pressure O2 103.9H, Arterial Blood HCO3 24.2, Arterial Blood Oxygen Saturation 97.3, Arterial Blood Base Excess 0.7, Calvin Test Positive 07/22/18 05:00: White Blood Count 5.0, Red Blood Count 2.79L, Hemoglobin 8.5L, Hematocrit 26.0L , Mean Corpuscular Volume 93, Mean Corpuscular Hemoglobin 30.7, Mean Corpuscular Hemoglobin Concent 32.8, Red Cell Distribution Width 15.3H, Platelet Count 93L, Mean Platelet Volume 8.1, Neutrophils (%) (Auto) , Lymphocytes (%) (Auto) , Monocytes (%) (Auto) , Eosinophils (%) (Auto) , Basophils (%) (Auto) , Sodium Level 137, Potassium Level 3.3L, Chloride Level 99 , Carbon Dioxide Level 26, Anion Gap 12, Blood Urea Nitrogen 85H, Creatinine 10.0H, Estimat Glomerular Filtration Rate 6.3, Glucose Level 87, Uric Acid 6.0, Calcium Level 8.3L, Phosphorus Level 6.7H, Magnesium Level 2.2, Total Bilirubin 0.6, Aspartate Amino Transf (AST/SGOT) 29, Alanine Aminotransferase (ALT/SGPT) 22, Alkaline Phosphatase 100, Troponin I 0.121H, Pro-B-Type Natriuretic Peptide 47679C, Total Protein 6.3L, Albumin 2.5L, Globulin 3.8, Albumin/Globulin Ratio 0.7L, Random Vancomycin Level 14.4 Height (Feet): 5 Height (Inches): 8.00 Weight (Pounds): 214 Objective General: intubated, sedated Head: normocephalic, without obvious abnormality, atraumatic Eyes: conjunctivae/corneas clear. PERRL, EOM's intact Throat: lips, mucosa, and tongue normal. MMM Neck: supple, symmetrical, trachea midline, and no JVD Lungs: clear to auscultation bilaterally Heart: regular rate and rhythm, S1, S2 normal, no murmur, click, rub or gallop Abdomen: soft, non-tender, non-distended, bowel sounds normal; no masses or organomegaly Extremities: extremities normal, atraumatic, no cyanosis or edema Pulses: 2+ and symmetric Skin: skin color, texture, turgor normal; no rashes or lesions Neurologic: grossly normal, no focal deficits Kamilla Padgett M.D. Jul 22, 2018 09:36
--- NOTE | 2018-07-22 09:43 | Pulmonolgy Critical Care Note ---
Critical Care - Asmt/Plan Problems: (1) Acute respiratory failure (2) Encephalopathy (3) Anemia in chronic kidney disease (CKD) (4) Dementia with psychosis (5) ESRD (end stage renal disease) on dialysis Respiratory: monitor respiratory rate, adjust FIO2, CXR Cardiac: continue to monitor HR/BP Renal: F/U I&O, keep IV fluid Infectious Disease: continue antibiotics Endocrine: monitor blood sugar, check HgA1C Neurologic: PRN Ativan, PRN Morphine Prophylaxis: Heparin Disposition: keep in ICU Time Spent (Minutes): 40 Notes Reviewed: food production supervisor, renal Discussed with: nurses, consultants, case operatorsenior site manager - Objective Last 24 Hour Vital Signs Date Time Temp Pulse Resp B/P (MAP) Pulse Ox O2 Delivery O2 Flow Rate FiO2 07/22/18 09:25 Mechanical Ventilator 30 07/22/18 09:12 62 20 30 07/22/18 09:00 61 19 141/41 (74) 100 07/22/18 08:28 127/34 07/22/18 08:27 127/34 07/22/18 08:27 61 127/34 07/22/18 08:02 60 07/22/18 08:00 Mechanical Ventilator 30.0 07/22/18 08:00 30 07/22/18 08:00 99.1 61 13 127/34 (65) 99 99.1 07/22/18 07:16 58 20 30 07/22/18 07:00 57 18 135/33 (67) 98 07/22/18 06:17 59 20 130/33 (65) 98 07/22/18 06:00 59 20 130/33 (65) 98 07/22/18 05:00 65 20 30 07/22/18 05:00 65 20 158/57 (90) 99 07/22/18 04:00 82 07/22/18 04:00 98.6 82 22 162/46 (84) 99 98.6 07/22/18 04:00 Mechanical Ventilator 30.0 07/22/18 04:00 30 07/22/18 03:05 72 20 30 07/22/18 03:00 78 24 165/53 (90) 98 07/22/18 02:00 69 22 150/44 (79) 99 07/22/18 01:25 61 20 30 07/22/18 01:00 63 20 142/37 (72) 97 07/22/18 00:00 99.2 64 24 150/38 (75) 98 99.2 07/22/18 00:00 Mechanical Ventilator 30.0 07/22/18 00:00 64 07/22/18 00:00 30 07/21/18 23:00 81 21 116/33 (60) 97 07/21/18 22:53 80 20 30 07/21/18 22:00 65 20 133/34 (67) 98 07/21/18 21:11 62 20 30 07/21/18 21:00 64 19 132/35 (67) 99 07/21/18 20:53 63 107/86 07/21/18 20:00 63 07/21/18 20:00 99.0 63 20 107/86 (93) 98 99.0 07/21/18 20:00 30 07/21/18 20:00 Mechanical Ventilator 30.0 07/21/18 19:08 63 20 30 07/21/18 19:00 63 20 120/36 (64) 100 07/21/18 18:00 65 16 123/36 (65) 99 07/21/18 17:46 139/35 07/21/18 17:00 72 16 139/35 (69) 98 07/21/18 16:58 62 21 30 07/21/18 16:00 98.8 63 20 137/37 (70) 98 98.8 07/21/18 16:00 Mechanical Ventilator 30.0 07/21/18 15:40 62 07/21/18 15:06 60 20 30 07/21/18 15:00 61 20 122/41 (68) 100 07/21/18 14:00 63 20 161/50 (87) 99 07/21/18 13:20 30 07/21/18 13:14 61 20 30 07/21/18 13:00 68 18 140/36 (70) 100 07/21/18 12:32 63 07/21/18 12:00 98.9 65 20 140/36 (70) 99 98.9 07/21/18 12:00 40 07/21/18 12:00 Mechanical Ventilator 40.0 07/21/18 11:20 60 20 40 07/21/18 11:00 60 20 166/53 (90) 100 07/21/18 10:15 144/36 07/21/18 10:15 144/36 07/21/18 10:00 60 18 144/36 (72) 100 Status: somnolent Condition: critical HEENT: atraumatic Lungs: clear Heart: HR/BP stable Abdomen: soft, active bowel sounds Extremities: edema Decubiti: stage Micro: Microbiology Date/Time Source Procedure Growth Status 07/20/18 20:00 Blood Blood Culture - Preliminary NO GROWTH AFTER 24 HOURS Resulted 07/20/18 19:45 Blood Blood Culture - Preliminary NO GROWTH AFTER 24 HOURS Resulted 07/20/18 18:06 Sputum Induced Gram Stain - Final Resulted 07/20/18 18:06 Sputum Culture - Preliminary Gram Positive Cocci Resulted Accucheck: 97 Critical Care - Subjective ROS Limited/Unobtainable: No Condition: critical EKG Rhythm: Sinus Rhythm FI02: 30 Vent Support Breath Rate: 20 Vent Support Mode: AC Vent Tidal Volume: 600 Sputum Amount: Small PEEP: 5.0 PIP: 38 Tube Feeding Amount: 40 I&O: Intake and Output 07/21/18 07/22/18 19:00 07:00 Intake Total 375 ml 705 ml Output Total 400 ml 320 ml Balance -25 ml 385 ml Free Water 100 ml 60 ml IV Total 55 ml 165 ml Tube Feeding 220 ml 480 ml Output Urine Total 400 ml 320 ml # Voids 2 # Bowel Movements 1 CXR: bilateral infiltrate, ET tube in good position ET-Tube: 7.5 ET Position: 22 Labs: Laboratory Tests Test 07/21/18 09:47 07/22/18 05:00 Arterial Blood pH 7.460 (7.350-7.450) Arterial Blood Partial Pressure CO2 34.4 mmHg (35.0-45.0) L Arterial Blood Partial Pressure O2 103.9 mmHg (75.0-100.0) H Arterial Blood HCO3 24.2 mmol/L (22.0-26.0) Arterial Blood Oxygen Saturation 97.3 % (92.0-98.0) Arterial Blood Base Excess 0.7 Calvin Test Positive White Blood Count 5.0 K/UL (4.8-10.8) Red Blood Count 2.79 M/UL (4.70-6.10) L Hemoglobin 8.5 G/DL (14.2-18.0) L Hematocrit 26.0 % (42.0-52.0) L Mean Corpuscular Volume 93 FL (80-99) Mean Corpuscular Hemoglobin 30.7 PG (27.0-31.0) Mean Corpuscular Hemoglobin Concent 32.8 G/DL (32.0-36.0) Red Cell Distribution Width 15.3 % (11.6-14.8) H Platelet Count 93 K/UL (150-450) L Mean Platelet Volume 8.1 FL (6.5-10.1) Neutrophils (%) (Auto) % (45.0-75.0) Lymphocytes (%) (Auto) % (20.0-45.0) Monocytes (%) (Auto) % (1.0-10.0) Eosinophils (%) (Auto) % (0.0-3.0) Basophils (%) (Auto) % (0.0-2.0) Sodium Level 137 MMOL/L (136-145) Potassium Level 3.3 MMOL/L (3.5-5.1) L Chloride Level 99 MMOL/L (98-107) Carbon Dioxide Level 26 MMOL/L (21-32) Anion Gap 12 mmol/L (5-15) Blood Urea Nitrogen 85 mg/dL (7-18) H Creatinine 10.0 MG/DL (0.55-1.30) H Estimat Glomerular Filtration Rate 6.3 mL/min (>60) Glucose Level 87 MG/DL (74-106) Uric Acid 6.0 MG/DL (2.6-7.2) Calcium Level 8.3 MG/DL (8.5-10.1) L Phosphorus Level 6.7 MG/DL (2.5-4.9) H Magnesium Level 2.2 MG/DL (1.8-2.4) Total Bilirubin 0.6 MG/DL (0.2-1.0) Aspartate Amino Transf (AST/SGOT) 29 U/L (15-37) Alanine Aminotransferase (ALT/SGPT) 22 U/L (12-78) Alkaline Phosphatase 100 U/L (46-116) Troponin I 0.121 ng/mL (0.000-0.056) Pro-B-Type Natriuretic Peptide 78702 pg/mL (0-125) H Total Protein 6.3 G/DL (6.4-8.2) L Albumin 2.5 G/DL (3.4-5.0) L Globulin 3.8 g/dL Albumin/Globulin Ratio 0.7 (1.0-2.7) L Random Vancomycin Level 14.4 ug/mL Denise Rogers MD Jul 22, 2018 09:43
--- NOTE | 2018-07-22 10:06 | Nephrology Progress Note ---
Assessment/Plan Problem List: (1) ESRD (end stage renal disease) on dialysis (2) Hyperkalemia (3) CHF (congestive heart failure) (4) Anemia in chronic kidney disease (CKD) Assessment ESRD has permacath hyperkalemia Shortness of breath, CHF NOW ACUTE RESPIRATORY FAILURE , ON VENT Encephalopathy condition: 1) ESRD (end stage renal disease) on dialysis (2) Anemia in chronic kidney disease (CKD) (3) Hypertensive kidney disease (4) Encephalopathy (5) DM (6) Hyperlipemia Plan Vent support Dialysis 07/22 change to 4K optimize cardiac status 2 D echo noted adjust BP meds Anemia work up : ? transfusion if needed adjust BS meds phos binders asa nitrate lopressor per orders Subjective ROS Limited/Unobtainable: Yes Objective Objective Last 24 Hour Vital Signs Date Time Temp Pulse Resp B/P (MAP) Pulse Ox O2 Delivery O2 Flow Rate FiO2 07/22/18 09:25 Mechanical Ventilator 30 07/22/18 09:12 62 20 30 07/22/18 09:00 61 19 141/41 (74) 100 07/22/18 08:28 127/34 07/22/18 08:27 127/34 07/22/18 08:27 61 127/34 07/22/18 08:02 60 07/22/18 08:00 Mechanical Ventilator 30.0 07/22/18 08:00 30 07/22/18 08:00 99.1 61 13 127/34 (65) 99 99.1 07/22/18 07:16 58 20 30 07/22/18 07:00 57 18 135/33 (67) 98 07/22/18 06:17 59 20 130/33 (65) 98 07/22/18 06:00 59 20 130/33 (65) 98 07/22/18 05:00 65 20 30 07/22/18 05:00 65 20 158/57 (90) 99 07/22/18 04:00 82 07/22/18 04:00 98.6 82 22 162/46 (84) 99 98.6 07/22/18 04:00 Mechanical Ventilator 30.0 07/22/18 04:00 30 07/22/18 03:05 72 20 30 07/22/18 03:00 78 24 165/53 (90) 98 07/22/18 02:00 69 22 150/44 (79) 99 9/27/18 01:25 61 20 30 07/22/18 01:00 63 20 142/37 (72) 97 07/22/18 00:00 99.2 64 24 150/38 (75) 98 99.2 07/22/18 00:00 Mechanical Ventilator 30.0 07/22/18 00:00 64 07/22/18 00:00 30 07/21/18 23:00 81 21 116/33 (60) 97 07/21/18 22:53 80 20 30 07/21/18 22:00 65 20 133/34 (67) 98 07/21/18 21:11 62 20 30 07/21/18 21:00 64 19 132/35 (67) 99 07/21/18 20:53 63 107/86 07/21/18 20:00 63 07/21/18 20:00 99.0 63 20 107/86 (93) 98 99.0 07/21/18 20:00 30 07/21/18 20:00 Mechanical Ventilator 30.0 07/21/18 19:08 63 20 30 07/21/18 19:00 63 20 120/36 (64) 100 07/21/18 18:00 65 16 123/36 (65) 99 07/21/18 17:46 139/35 07/21/18 17:00 72 16 139/35 (69) 98 07/21/18 16:58 62 21 30 07/21/18 16:00 98.8 63 20 137/37 (70) 98 98.8 07/21/18 16:00 Mechanical Ventilator 30.0 07/21/18 15:40 62 07/21/18 15:06 60 20 30 07/21/18 15:00 61 20 122/41 (68) 100 07/21/18 14:00 63 20 161/50 (87) 99 07/21/18 13:20 30 07/21/18 13:14 61 20 30 07/21/18 13:00 68 18 140/36 (70) 100 07/21/18 12:32 63 07/21/18 12:00 98.9 65 20 140/36 (70) 99 98.9 07/21/18 12:00 40 07/21/18 12:00 Mechanical Ventilator 40.0 07/21/18 11:20 60 20 40 07/21/18 11:00 60 20 166/53 (90) 100 07/21/18 10:15 144/36 07/21/18 10:15 144/36 Intake and Output 07/21/18 07/22/18 19:00 07:00 Intake Total 375 ml 705 ml Output Total 400 ml 320 ml Balance -25 ml 385 ml Free Water 100 ml 60 ml IV Total 55 ml 165 ml Tube Feeding 220 ml 480 ml Output Urine Total 400 ml 320 ml # Voids 2 # Bowel Movements 1 Laboratory Tests 07/22/18 05:00: White Blood Count 5.0, Red Blood Count 2.79L, Hemoglobin 8.5L, Hematocrit 26.0L , Mean Corpuscular Volume 93, Mean Corpuscular Hemoglobin 30.7, Mean Corpuscular Hemoglobin Concent 32.8, Red Cell Distribution Width 15.3H, Platelet Count 93L, Mean Platelet Volume 8.1, Neutrophils (%) (Auto) , Lymphocytes (%) (Auto) , Monocytes (%) (Auto) , Eosinophils (%) (Auto) , Basophils (%) (Auto) , Sodium Level 137, Potassium Level 3.3L, Chloride Level 99 , Carbon Dioxide Level 26, Anion Gap 12, Blood Urea Nitrogen 85H, Creatinine 10.0H, Estimat Glomerular Filtration Rate 6.3, Glucose Level 87, Uric Acid 6.0, Calcium Level 8.3L, Phosphorus Level 6.7H, Magnesium Level 2.2, Total Bilirubin 0.6, Aspartate Amino Transf (AST/SGOT) 29, Alanine Aminotransferase (ALT/SGPT) 22, Alkaline Phosphatase 100, Troponin I 0.121H, Pro-B-Type Natriuretic Peptide 54697O, Total Protein 6.3L, Albumin 2.5L, Globulin 3.8, Albumin/Globulin Ratio 0.7L, Random Vancomycin Level 14.4 Height (Feet): 5 Height (Inches): 8.00 Weight (Pounds): 214 General Appearance: no apparent distress EENT: other - on vent Respiratory/Chest: decreased breath sounds Abdomen: distended Objective no change Mirza Conde MD Jul 22, 2018 10:06
--- NOTE | 2018-07-22 12:44 | General Progress Note ---
Assessment/Plan Problem List: (1) Encephalopathy due to metabolic factor or toxin SNOMED: 601340126 Assessment/Plan seroquel 100mg tid the pt lack capacity to make decisions. Subjective Date patient seen: Jul 22, 2018 Neurologic/Psychiatric: Reports: anxiety, emotional problems Allergies: Coded Allergies: No Known Allergies (Verified , 11/24/07) UNABLE TO ASSESS (Unverified , 07/15/18) Subjective the pt is agitated and confused. Objective Last 24 Hour Vital Signs Date Time Temp Pulse Resp B/P (MAP) Pulse Ox O2 Delivery O2 Flow Rate FiO2 07/22/18 12:28 100.8 07/22/18 12:13 124 07/22/18 12:00 101.0 121 20 157/102 (120) 97 101.0 07/22/18 12:00 30 07/22/18 11:25 Mechanical Ventilator 30 07/22/18 11:05 95 27 30 07/22/18 11:00 110 25 186/57 (100) 99 07/22/18 10:00 56 21 132/74 (93) 100 07/22/18 09:25 Mechanical Ventilator 30 07/22/18 09:12 62 20 30 07/22/18 09:00 61 19 141/41 (74) 100 07/22/18 08:28 127/34 07/22/18 08:27 127/34 07/22/18 08:27 61 127/34 07/22/18 08:02 60 07/22/18 08:00 Mechanical Ventilator 30.0 07/22/18 08:00 30 07/22/18 08:00 99.1 61 13 127/34 (65) 99 99.1 07/22/18 07:16 58 20 30 07/22/18 07:00 57 18 135/33 (67) 98 07/22/18 06:17 59 20 130/33 (65) 98 07/22/18 06:00 59 20 130/33 (65) 98 07/22/18 05:00 65 20 30 07/22/18 05:00 65 20 158/57 (90) 99 07/22/18 04:00 82 07/22/18 04:00 98.6 82 22 162/46 (84) 99 98.6 07/22/18 04:00 Mechanical Ventilator 30.0 07/22/18 04:00 30 07/22/18 03:05 72 20 30 07/22/18 03:00 78 24 165/53 (90) 98 07/22/18 02:00 69 22 150/44 (79) 99 07/22/18 01:25 61 20 30 07/22/18 01:00 63 20 142/37 (72) 97 07/22/18 00:00 99.2 64 24 150/38 (75) 98 99.2 07/22/18 00:00 Mechanical Ventilator 30.0 07/22/18 00:00 64 07/22/18 00:00 30 07/21/18 23:00 81 21 116/33 (60) 97 07/21/18 22:53 80 20 30 07/21/18 22:00 65 20 133/34 (67) 98 07/21/18 21:11 62 20 30 07/21/18 21:00 64 19 132/35 (67) 99 07/21/18 20:53 63 107/86 07/21/18 20:00 63 07/21/18 20:00 99.0 63 20 107/86 (93) 98 99.0 07/21/18 20:00 30 07/21/18 20:00 Mechanical Ventilator 30.0 07/21/18 19:08 63 20 30 07/21/18 19:00 63 20 120/36 (64) 100 07/21/18 18:00 65 16 123/36 (65) 99 07/21/18 17:46 139/35 07/21/18 17:00 72 16 139/35 (69) 98 07/21/18 16:58 62 21 30 07/21/18 16:00 98.8 63 20 137/37 (70) 98 98.8 07/21/18 16:00 Mechanical Ventilator 30.0 07/21/18 15:40 62 07/21/18 15:06 60 20 30 07/21/18 15:00 61 20 122/41 (68) 100 07/21/18 14:00 63 20 161/50 (87) 99 07/21/18 13:20 30 07/21/18 13:14 61 20 30 07/21/18 13:00 68 18 140/36 (70) 100 Intake and Output 07/21/18 07/22/18 19:00 07:00 Intake Total 375 ml 705 ml Output Total 400 ml 320 ml Balance -25 ml 385 ml Free Water 100 ml 60 ml IV Total 55 ml 165 ml Tube Feeding 220 ml 480 ml Output Urine Total 400 ml 320 ml # Voids 2 # Bowel Movements 1 Laboratory Tests 07/22/18 05:00: White Blood Count 5.0, Red Blood Count 2.79L, Hemoglobin 8.5L, Hematocrit 26.0L , Mean Corpuscular Volume 93, Mean Corpuscular Hemoglobin 30.7, Mean Corpuscular Hemoglobin Concent 32.8, Red Cell Distribution Width 15.3H, Platelet Count 93L, Mean Platelet Volume 8.1, Neutrophils (%) (Auto) , Lymphocytes (%) (Auto) , Monocytes (%) (Auto) , Eosinophils (%) (Auto) , Basophils (%) (Auto) , Sodium Level 137, Potassium Level 3.3L, Chloride Level 99 , Carbon Dioxide Level 26, Anion Gap 12, Blood Urea Nitrogen 85H, Creatinine 10.0H, Estimat Glomerular Filtration Rate 6.3, Glucose Level 87, Uric Acid 6.0, Calcium Level 8.3L, Phosphorus Level 6.7H, Magnesium Level 2.2, Total Bilirubin 0.6, Aspartate Amino Transf (AST/SGOT) 29, Alanine Aminotransferase (ALT/SGPT) 22, Alkaline Phosphatase 100, Troponin I 0.121H, Pro-B-Type Natriuretic Peptide 17633O, Total Protein 6.3L, Albumin 2.5L, Globulin 3.8, Albumin/Globulin Ratio 0.7L, Random Vancomycin Level 14.4 Height (Feet): 5 Height (Inches): 8.00 Weight (Pounds): 214 Tara Ward MD Jul 22, 2018 12:44
--- NOTE | 2018-07-22 14:39 | General Progress Note ---
Assessment/Plan Problem List: (1) Acute hypercapnic respiratory failure ICD Codes: J96.02 - Acute respiratory failure with hypercapnia SNOMED: 363090995 (2) Severe sepsis ICD Codes: A41.9 - Sepsis, unspecified organism; R65.20 - Severe sepsis without septic shock SNOMED: 30607687 (3) Hyperkalemia ICD Codes: E87.5 - Hyperkalemia SNOMED: 83544598 (4) Acute on chronic diastolic (congestive) heart failure ICD Codes: I50.33 - Acute on chronic diastolic (congestive) heart failure SNOMED: 97408664, 702693767 (5) Acute metabolic encephalopathy ICD Codes: G93.41 - Metabolic encephalopathy SNOMED: 82120680, 255670819 (6) ESRD (end stage renal disease) on dialysis ICD Codes: N18.6 - End stage renal disease; Z99.2 - Dependence on renal dialysis SNOMED: 693187608 (7) HTN (hypertension) ICD Codes: I10 - Essential (primary) hypertension SNOMED: 21745832 (8) Hypertensive heart and renal disease ICD Codes: I13.10 - Hypertensive heart and chronic kidney disease without heart failure, with stage 1 through stage 4 chronic kidney disease, or unspecified chronic kidney disease SNOMED: 63742494 (9) Anemia in ESRD (end-stage renal disease) ICD Codes: N18.6 - End stage renal disease; D63.1 - Anemia in chronic kidney disease SNOMED: 24097824, 780230425 (10) Dementia with psychosis ICD Codes: F03.91 - Unspecified dementia with behavioral disturbance SNOMED: 39616474, 71424510 (11) Pancytopenia ICD Codes: D61.818 - Other pancytopenia SNOMED: 120832857 Status: stable Assessment/Plan # Acute hypercapnic respiratory failure - possibly 2/2 aspiration pneumonia vs HCAP - Pulm consulted - Pt now intubated and on vent since 07/20 - Wean vent as tolerated - F/u CT chest--compressive atelectasis and consolidation of significant portion of the right lower lobe, compressive atelectatic changes of the posterior right upper lobe, patchy consolidation and groundglass opacity within the right upper lobe, right middle lobe, and left lower lobe, consolidation likely on the basis of infiltrates or pulmonary edema - Daily SBTs, sedation holidays - Monitor CXR - ID consulted - Empiric vanco and zosyn 07/20- # Severe sepsis # Health care associated pneumonia vs aspiration pneumonia - ID consulted - Empiric vanco and zosyn 07/20- - F/u sputum culture - CT chest reviewed as above # Severe hyperkalemia - K 8.4 on admit, now improved s/p HD # Metabolic acidosis # ESRD on HD - Transferred out of ICU on 07/17/18 - Pulm/critical care consulted - Renal consulted - cont HD per renal. Last HD yesterday - Cont renvela, nephrovite # Acute on chronic diastolic heart failure - Cardiology consulted - Check TTE --> EF wnl - HD for volume removal # NSTEMI type 2 - likely demand ischemia in setting of volume overload - Cardiology consulted - Trend trop/EKG - TTE reviewed and showed normal EF # Acute metabolic encephalopathy - likely in setting of metabolic derangements from renal dysfcn # Dementia with psychosis - Psych consulted - ctm # HTN # Hypertensive heart and renal disease - Cont labetolol # Pancytopenia # Anemia in ESRD # Thrombocytopenia # Leukopenia - Heme/onc consulted - EPO per renal - IV venofer - s/p 1U pRBC on 07/17/18 - ctm CBC DVT Prophylaxis: SCD, HSQ Code Status: Full Hospital Classification Declaration: Based on this initial evaluation, and depending on the patient's clinical course, I anticipate that this patient will require hospitalization for 3-4 days for volume overload, severe hyperK and close respiratory/hemodynamic monitoring. Disposition: Once the patient is stable to leave the hospital, I anticipate the patient will likely be discharged to the following environment: back to SNF At the time of my involvement, the patient's condition was critical with high potential for and/or physiologic deterioration secondary to acute respiratory failure, severe sepsis as delineated in the note above. On the above date of service, I spent a total of 40 minutes in the ICU evaluating, managing, and providing critical care services to this patient, including time spent documenting these activities, counseling patient/family, and coordinating care. Critical care services performed include: Telemetry Review Hemodynamic measurement interpretation Laboratory data review and interpretation Ventilator setting review, management, and adjustment Discussion of care plans with patient, family, and/or surrogate decision makers Discussion of patient's care with primary medical team, surgical team, and/or consulting service Decision to obtain further radiologic evaluation, after consideration of risk/ benefit ratio Decision to perform invasive procedure, after consideration of risk/benefit ratio Review of most recent microbiology results with assessment and modification of antimicrobial coverage Discussion of patient's code status and further advancement towards the ultimate goals of care Plan outlined above discussed with patient/family, [employer], ICU team, and involved physicians/consultants. Time of note may not reflect time of encounter. Subjective Date patient seen: Jul 22, 2018 Time patient seen: 14:39 ROS Limited/Unobtainable: Yes Allergies: Coded Allergies: No Known Allergies (Verified , 11/24/07) UNABLE TO ASSESS (Unverified , 07/15/18) Subjective No acute o/n events Afebrile, VSS Not requiring pressuors Pt intubated, sedated but arousable Some agitation Objective Last 24 Hour Vital Signs Date Time Temp Pulse Resp B/P (MAP) Pulse Ox O2 Delivery O2 Flow Rate FiO2 07/22/18 14:00 82 16 133/32 (65) 98 07/22/18 13:01 122 30 30 07/22/18 13:00 109 24 155/68 (97) 97 07/22/18 12:58 102.2 07/22/18 12:28 100.8 07/22/18 12:13 124 07/22/18 12:00 101.0 121 20 157/102 (120) 97 101.0 07/22/18 12:00 Mechanical Ventilator 30.0 07/22/18 12:00 30 07/22/18 11:25 Mechanical Ventilator 30 07/22/18 11:05 95 27 30 07/22/18 11:00 110 25 186/57 (100) 99 07/22/18 10:00 56 21 132/74 (93) 100 07/22/18 09:25 Mechanical Ventilator 30 07/22/18 09:12 62 20 30 07/22/18 09:00 61 19 141/41 (74) 100 07/22/18 08:28 127/34 07/22/18 08:27 127/34 07/22/18 08:27 61 127/34 07/22/18 08:02 60 07/22/18 08:00 Mechanical Ventilator 30.0 07/22/18 08:00 30 07/22/18 08:00 99.1 61 13 127/34 (65) 99 99.1 07/22/18 07:16 58 20 30 07/22/18 07:00 57 18 135/33 (67) 98 07/22/18 06:17 59 20 130/33 (65) 98 07/22/18 06:00 59 20 130/33 (65) 98 07/22/18 05:00 65 20 30 07/22/18 05:00 65 20 158/57 (90) 99 07/22/18 04:00 82 07/22/18 04:00 98.6 82 22 162/46 (84) 99 98.6 07/22/18 04:00 Mechanical Ventilator 30.0 07/22/18 04:00 30 07/22/18 03:05 72 20 30 07/22/18 03:00 78 24 165/53 (90) 98 07/22/18 02:00 69 22 150/44 (79) 99 07/22/18 01:25 61 20 30 07/22/18 01:00 63 20 142/37 (72) 97 07/22/18 00:00 99.2 64 24 150/38 (75) 98 99.2 07/22/18 00:00 Mechanical Ventilator 30.0 07/22/18 00:00 64 07/22/18 00:00 30 07/21/18 23:00 81 21 116/33 (60) 97 07/21/18 22:53 80 20 30 07/21/18 22:00 65 20 133/34 (67) 98 07/21/18 21:11 62 20 30 07/21/18 21:00 64 19 132/35 (67) 99 07/21/18 20:53 63 107/86 07/21/18 20:00 63 07/21/18 20:00 99.0 63 20 107/86 (93) 98 99.0 07/21/18 20:00 30 07/21/18 20:00 Mechanical Ventilator 30.0 07/21/18 19:08 63 20 30 07/21/18 19:00 63 20 120/36 (64) 100 07/21/18 18:00 65 16 123/36 (65) 99 07/21/18 17:46 139/35 07/21/18 17:00 72 16 139/35 (69) 98 07/21/18 16:58 62 21 30 07/21/18 16:00 98.8 63 20 137/37 (70) 98 98.8 07/21/18 16:00 Mechanical Ventilator 30.0 07/21/18 15:40 62 07/21/18 15:06 60 20 30 07/21/18 15:00 61 20 122/41 (68) 100 Intake and Output 07/21/18 07/22/18 19:00 07:00 Intake Total 375 ml 705 ml Output Total 400 ml 320 ml Balance -25 ml 385 ml Free Water 100 ml 60 ml IV Total 55 ml 165 ml Tube Feeding 220 ml 480 ml Output Urine Total 400 ml 320 ml # Voids 2 # Bowel Movements 1 Laboratory Tests 07/22/18 05:00: White Blood Count 5.0, Red Blood Count 2.79L, Hemoglobin 8.5L, Hematocrit 26.0L , Mean Corpuscular Volume 93, Mean Corpuscular Hemoglobin 30.7, Mean Corpuscular Hemoglobin Concent 32.8, Red Cell Distribution Width 15.3H, Platelet Count 93L, Mean Platelet Volume 8.1, Neutrophils (%) (Auto) , Lymphocytes (%) (Auto) , Monocytes (%) (Auto) , Eosinophils (%) (Auto) , Basophils (%) (Auto) , Sodium Level 137, Potassium Level 3.3L, Chloride Level 99 , Carbon Dioxide Level 26, Anion Gap 12, Blood Urea Nitrogen 85H, Creatinine 10.0H, Estimat Glomerular Filtration Rate 6.3, Glucose Level 87, Uric Acid 6.0, Calcium Level 8.3L, Phosphorus Level 6.7H, Magnesium Level 2.2, Total Bilirubin 0.6, Aspartate Amino Transf (AST/SGOT) 29, Alanine Aminotransferase (ALT/SGPT) 22, Alkaline Phosphatase 100, Troponin I 0.121H, Pro-B-Type Natriuretic Peptide 81843Q, Total Protein 6.3L, Albumin 2.5L, Globulin 3.8, Albumin/Globulin Ratio 0.7L, Random Vancomycin Level 14.4 Height (Feet): 5 Height (Inches): 8.00 Weight (Pounds): 214 Objective General: intubated, sedated Head: normocephalic, without obvious abnormality, atraumatic Eyes: conjunctivae/corneas clear. PERRL, EOM's intact Throat: lips, mucosa, and tongue normal. MMM Neck: supple, symmetrical, trachea midline, and no JVD Lungs: clear to auscultation bilaterally Heart: regular rate and rhythm, S1, S2 normal, no murmur, click, rub or gallop Abdomen: soft, non-tender, non-distended, bowel sounds normal; no masses or organomegaly Extremities: extremities normal, atraumatic, no cyanosis or edema Pulses: 2+ and symmetric Skin: skin color, texture, turgor normal; no rashes or lesions Neurologic: grossly normal, no focal deficits Kamilla Padgett M.D. Jul 22, 2018 14:39
[2018-07-22] MEDS ORDERED: Vancomycin 1250mg/D5W 250ml IVPB ONE (18:00)
[2018-07-22] MEDS ORDERED: NS 275ml ONE ×3 (19:54→20:03)
[2018-07-22] MEDS ORDERED: Tubing IV Secondary IV ONE ×2 (19:57→20:03)
[2018-07-22] MEDS ORDERED: Sterile Water Irrig 1000ml IRRIG ONE (20:03)
--- NOTE | 2018-07-22 22:49 | Cardiology Progress Note ---
Assessment/Plan Status: stable Assessment/Plan Assessment: 1) ESRD (end stage renal disease) on dialysis (2) Anemia in chronic kidney disease (CKD) (3) Hypertensive kidney disease (4) Encephalopathy (5) DM (6) Hyperlipemia Plan: Maintain hemodialysis Echocardiogram --> preserved systolic function, mild valvular regurgitation, mild pulmonary hypertension, elevated filling pressures Stress text next week to evaluate chest pain given multiple cardiac risk factors and NSVT - currently unstable to proceed Aspirin Statin Serial EKG/Troponin No indication for troponin at this time. No indication for urgent cardiac cath LE ultrasound PRBC transfusion Maintain hemodialysis Vent care Tube feeds Poor prognosis Subjective Cardiovascular: Reports: no symptoms Respiratory: Reports: no symptoms Gastrointestinal/Abdominal: Reports: no symptoms Genitourinary: Reports: no symptoms Subjective Transferred to ICU for obtunded mental status, intubated Objective Last 24 Hour Vital Signs Date Time Temp Pulse Resp B/P (MAP) Pulse Ox O2 Delivery O2 Flow Rate FiO2 07/22/18 21:16 59 20 30 07/22/18 20:31 63 135/39 07/22/18 20:00 61 20 135/39 (71) 99 07/22/18 20:00 30 07/22/18 20:00 Mechanical Ventilator 30.0 07/22/18 20:00 61 07/22/18 19:27 60 18 30 07/22/18 19:00 63 20 134/40 (71) 99 07/22/18 18:00 98.0 68 20 131/41 (71) 99 98.0 07/22/18 17:06 72 20 30 07/22/18 17:00 68 20 132/115 (121) 99 07/22/18 16:00 30 07/22/18 16:00 99.2 70 20 142/49 (80) 99 99.2 07/22/18 16:00 Mechanical Ventilator 30.0 07/22/18 15:54 71 07/22/18 15:11 74 20 30 07/22/18 15:00 99.7 73 20 143/45 (77) 100 99.7 07/22/18 14:00 82 16 133/32 (65) 98 07/22/18 13:01 122 30 30 07/22/18 13:00 109 24 155/68 (97) 97 07/22/18 12:58 102.2 07/22/18 12:28 100.8 07/22/18 12:13 124 07/22/18 12:00 101.0 121 20 157/102 (120) 97 101.0 07/22/18 12:00 Mechanical Ventilator 30.0 07/22/18 12:00 30 07/22/18 11:25 Mechanical Ventilator 30 07/22/18 11:05 95 27 30 07/22/18 11:00 110 25 186/57 (100) 99 07/22/18 10:00 56 21 132/74 (93) 100 07/22/18 09:25 Mechanical Ventilator 30 07/22/18 09:12 62 20 30 07/22/18 09:00 61 19 141/41 (74) 100 07/22/18 08:28 127/34 07/22/18 08:27 127/34 07/22/18 08:27 61 127/34 07/22/18 08:02 60 07/22/18 08:00 Mechanical Ventilator 30.0 07/22/18 08:00 30 07/22/18 08:00 99.1 61 13 127/34 (65) 99 99.1 07/22/18 07:16 58 20 30 07/22/18 07:00 57 18 135/33 (67) 98 07/22/18 06:17 59 20 130/33 (65) 98 07/22/18 06:00 59 20 130/33 (65) 98 07/22/18 05:00 65 20 30 07/22/18 05:00 65 20 158/57 (90) 99 07/22/18 04:00 82 07/22/18 04:00 98.6 82 22 162/46 (84) 99 98.6 07/22/18 04:00 Mechanical Ventilator 30.0 07/22/18 04:00 30 07/22/18 03:05 72 20 30 07/22/18 03:00 78 24 165/53 (90) 98 07/22/18 02:00 69 22 150/44 (79) 99 07/22/18 01:25 61 20 30 07/22/18 01:00 63 20 142/37 (72) 97 07/22/18 00:00 99.2 64 24 150/38 (75) 98 99.2 07/22/18 00:00 Mechanical Ventilator 30.0 07/22/18 00:00 64 07/22/18 00:00 30 07/21/18 23:00 81 21 116/33 (60) 97 07/21/18 22:53 80 20 30 General Appearance: mild distress, severe distress, lethargic, on vent EENT: PERRL/EOMI, normal ENT inspection, TMs normal, pharynx normal Neck: non-tender, normal alignment, supple, normal inspection Rhythm: NSR, no ectopy Cardiovascular: normal peripheral pulses, normal rate, regular rhythm Respiratory/Chest: chest wall non-tender, accessory muscle use, crackles/rales , rhonchi - bilaterally Abdomen: normal bowel sounds, non tender, soft, no organomegaly Extremities: normal range of motion, non-tender, normal inspection 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, no motor/sensory deficits Intake and Output 07/21/18 07/22/18 19:00 07:00 Intake Total 375 ml 705 ml Output Total 400 ml 320 ml Balance -25 ml 385 ml Free Water 100 ml 60 ml IV Total 55 ml 165 ml Tube Feeding 220 ml 480 ml Output Urine Total 400 ml 320 ml # Voids 2 # Bowel Movements 1 Laboratory Tests Test 07/22/18 05:00 White Blood Count 5.0 K/UL (4.8-10.8) Red Blood Count 2.79 M/UL (4.70-6.10) L Hemoglobin 8.5 G/DL (14.2-18.0) L Hematocrit 26.0 % (42.0-52.0) L Mean Corpuscular Volume 93 FL (80-99) Mean Corpuscular Hemoglobin 30.7 PG (27.0-31.0) Mean Corpuscular Hemoglobin Concent 32.8 G/DL (32.0-36.0) Red Cell Distribution Width 15.3 % (11.6-14.8) H Platelet Count 93 K/UL (150-450) L Mean Platelet Volume 8.1 FL (6.5-10.1) Neutrophils (%) (Auto) % (45.0-75.0) Lymphocytes (%) (Auto) % (20.0-45.0) Monocytes (%) (Auto) % (1.0-10.0) Eosinophils (%) (Auto) % (0.0-3.0) Basophils (%) (Auto) % (0.0-2.0) Sodium Level 137 MMOL/L (136-145) Potassium Level 3.3 MMOL/L (3.5-5.1) L Chloride Level 99 MMOL/L (98-107) Carbon Dioxide Level 26 MMOL/L (21-32) Anion Gap 12 mmol/L (5-15) Blood Urea Nitrogen 85 mg/dL (7-18) H Creatinine 10.0 MG/DL (0.55-1.30) H Estimat Glomerular Filtration Rate 6.3 mL/min (>60) Glucose Level 87 MG/DL (74-106) Uric Acid 6.0 MG/DL (2.6-7.2) Calcium Level 8.3 MG/DL (8.5-10.1) L Phosphorus Level 6.7 MG/DL (2.5-4.9) H Magnesium Level 2.2 MG/DL (1.8-2.4) Total Bilirubin 0.6 MG/DL (0.2-1.0) Aspartate Amino Transf (AST/SGOT) 29 U/L (15-37) Alanine Aminotransferase (ALT/SGPT) 22 U/L (12-78) Alkaline Phosphatase 100 U/L (46-116) Troponin I 0.121 ng/mL (0.000-0.056) Pro-B-Type Natriuretic Peptide 58661 pg/mL (0-125) H Total Protein 6.3 G/DL (6.4-8.2) L Albumin 2.5 G/DL (3.4-5.0) L Globulin 3.8 g/dL Albumin/Globulin Ratio 0.7 (1.0-2.7) L Random Vancomycin Level 14.4 ug/mL Microbiology Date/Time Source Procedure Growth Status 07/20/18 20:00 Blood Blood Culture - Preliminary NO GROWTH AFTER 24 HOURS Resulted 07/20/18 19:45 Blood Blood Culture - Preliminary NO GROWTH AFTER 24 HOURS Resulted 07/20/18 18:06 Sputum Induced Gram Stain - Final Resulted 07/20/18 18:06 Sputum Culture - Preliminary Gram Positive Cocci Resulted Yimi Luevano MD Jul 22, 2018 22:49
[2018-07-23] VITALS (24 sets, daily range): BP systolic 112–159; BP diastolic 35–82
[2018-07-23] MEDS: LORazepam Inj 2mg/ml 1ml IV PRN ×2 (01:08→23:58)
[2018-07-23] MEDS: Zosyn 2.25 gm in D5W 55ml IV SCH ×3 (03:07→18:48)
[2018-07-23 05:24] LABS: HEMATOCRIT 27.9 % (42.0-52.0); MEAN CORPUSCULAR VOLUME 94 FL (80-99); PLATELET COUNT 93 K/UL (150-450); RED BLOOD COUNT 2.97 M/UL (4.70-6.10); RED CELL DISTRIBUTION WIDTH 15.4 % (11.6-14.8)
[2018-07-23 05:44] LABS: ALANINE AMINOTRANSFERASE 23 U/L (12-78); ALBUMIN 2.3 G/DL (3.4-5.0); ALBUMIN/GLOBULIN RATIO 0.6 (1.0-2.7); ALKALINE PHOSPHATASE 104 U/L (46-116); ANION GAP 7 mmol/L (5-15); ASPARTATE AMINO TRANSFERASE 26 U/L (15-37); BILIRUBIN,TOTAL 0.7 MG/DL (0.2-1.0); BLOOD UREA NITROGEN 56 mg/dL (7-18); CALCIUM 8.5 MG/DL (8.5-10.1); CARBON DIOXIDE 30 MMOL/L (21-32); CHLORIDE 100 MMOL/L (98-107); CREATININE 7.3 MG/DL (0.55-1.30); PHOSPHORUS 4.6 MG/DL (2.5-4.9); POTASSIUM 3.6 MMOL/L (3.5-5.1); SODIUM 137 MMOL/L (136-145)
[2018-07-23] MEDS: NovoLOG Insulin Flexpen SUBQ SCH ×3 (06:00→18:48)
[2018-07-23 06:26] LABS: INR 1.1 (0.9-1.1)
--- NOTE | 2018-07-23 06:55 | General Progress Note ---
Assessment/Plan Assessment/Plan # Pancytopenia potentially reactive process versus meds related or related to bone marrow process, hepatitis and hiv both reviewed and are negative, has been acute onset since admission --> stable to improving --> us of the abdomen shows splenomegaly, continues to persist --> at this time, does not need a bone marrow biopsy --> on IV iron and epogen sq --> neupogen sq prn --> cbc has been reviewed daily # Anemia of chronic disease has been evaluated and reviewed, does have evidence of iron deficiency, has been given iron once d/c --> po iron once discharged --> ok for epogen --> on iv iron --> appreciate renal recs --> on HD prn # Sharp chest pain shortness of breath --> ddx: ACS vs. CHF vs. pneumonia vs. gastritis/GERD vs pneumothorax versus fluid overload/end-stage renal disease --> renal consulted # AZAM on CKD --> appreciate renal recs # ESRD as per nephro --> on hd prn # + cardiomeghaly with PVC # Health care associated pneumonia --> Pulm consulted --> Pt now intubated and on vent since 07/20 Greatly appreciate consultation! Subjective Constitutional: Denies: no symptoms, chills, diaphoresis, fever, malaise, weakness, other Cardiovascular: Denies: no symptoms, chest pain, edema, irregular heart rate, lightheadedness, palpitations, syncope, other Respiratory: Denies: no symptoms, cough, orthopnea, shortness of breath, SOB with excertion, SOB at rest, sputum, stridor, wheezing, other Gastrointestinal/Abdominal: Denies: no symptoms, abdomen distended, abdominal pain, black stools, tarry stools, blood in stool, constipated, diarrhea, difficulty swallowing, nausea, poor appetite, poor fluid intake, rectal bleeding , vomiting, other Genitourinary: Denies: no symptoms, burning, discharge, frequency, flank pain, hematuria, incontinence, pain, urgency, other Neurologic/Psychiatric: Denies: no symptoms, anxiety, depressed, emotional problems, headache, numbness, paresthesia, pre-existing deficit, seizure, tingling, tremors, weakness, other Endocrine: Denies: no symptoms, excessive sweating, flushing, intolerance to cold, intolerance to heat, increased hunger, increased thirst, increased urine, unexplained weight gain, unexplained weight loss, other Hematologic/Lymphatic: Denies: no symptoms, anemia, easy bleeding, easy bruising, other Allergies: Coded Allergies: No Known Allergies (Verified , 11/24/07) UNABLE TO ASSESS (Unverified , 07/15/18) Subjective got HD yesterday, anemia panel reviewed Objective Last 24 Hour Vital Signs Date Time Temp Pulse Resp B/P (MAP) Pulse Ox O2 Delivery O2 Flow Rate FiO2 07/23/18 06:00 53 20 155/82 (106) 100 07/23/18 05:15 56 20 30 07/23/18 05:00 55 20 137/46 (76) 100 07/23/18 04:00 98.6 59 20 141/55 (83) 100 98.6 07/23/18 04:00 30 07/23/18 04:00 59 07/23/18 04:00 Mechanical Ventilator 30.0 07/23/18 03:10 66 20 30 07/23/18 03:00 57 20 155/47 (83) 98 07/23/18 02:00 57 20 140/44 (76) 98 07/23/18 01:26 61 20 30 07/23/18 01:00 67 20 130/39 (69) 98 07/23/18 00:00 30 07/23/18 00:00 58 07/23/18 00:00 Mechanical Ventilator 30.0 07/23/18 00:00 99.1 58 20 138/43 (74) 99 99.1 07/22/18 23:00 56 20 127/42 (70) 100 07/22/18 22:47 56 20 30 07/22/18 22:00 66 20 110/33 (58) 99 07/22/18 21:16 59 20 30 07/22/18 21:00 60 20 126/35 (65) 99 07/22/18 20:31 63 135/39 07/22/18 20:00 61 20 135/39 (71) 99 07/22/18 20:00 30 07/22/18 20:00 Mechanical Ventilator 30.0 07/22/18 20:00 61 07/22/18 19:27 60 18 30 07/22/18 19:00 63 20 134/40 (71) 99 07/22/18 18:00 98.0 68 20 131/41 (71) 99 98.0 07/22/18 17:06 72 20 30 07/22/18 17:00 68 20 132/115 (121) 99 07/22/18 16:00 30 07/22/18 16:00 99.2 70 20 142/49 (80) 99 99.2 07/22/18 16:00 Mechanical Ventilator 30.0 07/22/18 15:54 71 07/22/18 15:11 74 20 30 07/22/18 15:00 99.7 73 20 143/45 (77) 100 99.7 07/22/18 14:00 82 16 133/32 (65) 98 07/22/18 13:01 122 30 30 07/22/18 13:00 109 24 155/68 (97) 97 07/22/18 12:58 102.2 07/22/18 12:28 100.8 07/22/18 12:13 124 07/22/18 12:00 101.0 121 20 157/102 (120) 97 101.0 07/22/18 12:00 Mechanical Ventilator 30.0 07/22/18 12:00 30 07/22/18 11:25 Mechanical Ventilator 30 07/22/18 11:05 95 27 30 07/22/18 11:00 110 25 186/57 (100) 99 07/22/18 10:00 56 21 132/74 (93) 100 07/22/18 09:25 Mechanical Ventilator 30 07/22/18 09:12 62 20 30 07/22/18 09:00 61 19 141/41 (74) 100 07/22/18 08:28 127/34 07/22/18 08:27 127/34 07/22/18 08:27 61 127/34 07/22/18 08:02 60 07/22/18 08:00 Mechanical Ventilator 30.0 07/22/18 08:00 30 07/22/18 08:00 99.1 61 13 127/34 (65) 99 99.1 07/22/18 07:16 58 20 30 07/22/18 07:00 57 18 135/33 (67) 98 Intake and Output 07/22/18 07/23/18 19:00 07:00 Intake Total 685 ml 580 ml Output Total 0 ml 250 ml Balance 685 ml 330 ml Free Water 150 ml 30 ml IV Total 55 ml 110 ml Tube Feeding 480 ml 440 ml Output Urine Total 0 ml 250 ml # Voids 1 Laboratory Tests 07/23/18 05:00: White Blood Count 9.0#, Red Blood Count 2.97L, Hemoglobin 9.0L, Hematocrit 27.9L , Mean Corpuscular Volume 94, Mean Corpuscular Hemoglobin 30.2, Mean Corpuscular Hemoglobin Concent 32.1, Red Cell Distribution Width 15.4H, Platelet Count 93L, Mean Platelet Volume 8.1, Neutrophils (%) (Auto) , Lymphocytes (%) (Auto) , Monocytes (%) (Auto) , Eosinophils (%) (Auto) , Basophils (%) (Auto) , Neutrophils % (Manual) [Pending], Lymphocytes % (Manual) [Pending], Platelet Estimate [Pending], Platelet Morphology [Pending], Prothrombin Time 11.4, Prothromb Time International Ratio 1.1, Activated Partial Thromboplast Time 35H, Sodium Level 137, Potassium Level 3.6, Chloride Level 100, Carbon Dioxide Level 30, Anion Gap 7, Blood Urea Nitrogen 56H, Creatinine 7.3H, Estimat Glomerular Filtration Rate 9.1, Glucose Level 98, Uric Acid 3.8, Calcium Level 8.5, Phosphorus Level 4.6, Magnesium Level 2.1, Total Bilirubin 0.7, Aspartate Amino Transf (AST/SGOT) 26, Alanine Aminotransferase ( ALT/SGPT) 23, Alkaline Phosphatase 104, Troponin I 0.196H, Total Protein 6.2L, Albumin 2.3L, Globulin 3.9, Albumin/Globulin Ratio 0.6L Height (Feet): 5 Height (Inches): 8.00 Weight (Pounds): 215 General Appearance: no apparent distress EENT: normal ENT inspection Neck: normal alignment Cardiovascular: normal rate Respiratory/Chest: chest wall non-tender, other - intubated Abdomen: non tender Extremities: normal range of motion Edema: mild edema Neurologic: alert Skin: warm/dry Virgil Ward MD Jul 23, 2018 06:55
[2018-07-23] MEDS: Pantoprazole Inj IV SCH ×2 (08:07→21:16)
[2018-07-23] MEDS: Metoprolol Tartrate 12.5mg TAB NG SCH ×2 (08:07→21:18)
[2018-07-23] MEDS: Renvela 2400 mg pkt ORAL SCH (08:08)
[2018-07-23] MEDS: Nitroglycerin Patch 0.4mg TDERMAL SCH (08:08)
--- NOTE | 2018-07-23 09:59 | Diagnostic Imaging Report ---
Indication: Dyspnea Technique: One view of the chest Comparison: 07/21/2018 Findings: Bilateral basilar parenchymal opacities, left-sided pleural thickening versus fluid are all unchanged. Stable tube and line positions. Impression: Unchanged, over 2 days, findings as above.
--- NOTE | 2018-07-23 10:49 | Pulmonolgy Critical Care Note ---
Critical Care - Asmt/Plan Problems: (1) Acute respiratory failure (2) Encephalopathy (3) Anemia in chronic kidney disease (CKD) (4) Dementia with psychosis (5) ESRD (end stage renal disease) on dialysis Respiratory: monitor respiratory rate, adjust FIO2, CXR, ABG, other - will try weaning once pt is more awake Cardiac: continue to monitor HR/BP Renal: F/U I&O, keep IV fluid Infectious Disease: check cultures, continue antibiotics Gastrointestinal: continue feedings/current rate Endocrine: monitor blood sugar, continue sliding scale insulin Hematologic: monitor H/H, transfuse if hgb<8.5 Neurologic: PRN Ativan, keep patient comfortable Prophylaxis: Protonix, Heparin Time Spent (Minutes): 40 Discussed with: nurses, consultants, rifle case repairerdesktop manager - Objective Last 24 Hour Vital Signs Date Time Temp Pulse Resp B/P (MAP) Pulse Ox O2 Delivery O2 Flow Rate FiO2 07/23/18 10:00 68 20 138/44 (75) 99 07/23/18 09:28 60 20 30 07/23/18 09:00 61 20 122/44 (70) 99 07/23/18 08:08 119/50 07/23/18 08:07 61 119/50 07/23/18 08:00 Mechanical Ventilator 30.0 07/23/18 08:00 98.3 62 20 119/50 (73) 99 98.3 07/23/18 08:00 30 07/23/18 08:00 62 07/23/18 07:33 61 20 30 07/23/18 07:00 60 20 119/55 (76) 99 07/23/18 06:00 53 20 155/82 (106) 100 07/23/18 05:15 56 20 30 07/23/18 05:00 55 20 137/46 (76) 100 07/23/18 04:00 98.6 59 20 141/55 (83) 100 98.6 07/23/18 04:00 30 07/23/18 04:00 59 07/23/18 04:00 Mechanical Ventilator 30.0 07/23/18 03:10 66 20 30 07/23/18 03:00 57 20 155/47 (83) 98 07/23/18 02:00 57 20 140/44 (76) 98 07/23/18 01:26 61 20 30 07/23/18 01:00 67 20 130/39 (69) 98 07/23/18 00:00 30 07/23/18 00:00 58 07/23/18 00:00 Mechanical Ventilator 30.0 07/23/18 00:00 99.1 58 20 138/43 (74) 99 99.1 07/22/18 23:00 56 20 127/42 (70) 100 07/22/18 22:47 56 20 30 07/22/18 22:00 66 20 110/33 (58) 99 07/22/18 21:16 59 20 30 07/22/18 21:00 60 20 126/35 (65) 99 07/22/18 20:31 63 135/39 07/22/18 20:00 61 20 135/39 (71) 99 07/22/18 20:00 30 07/22/18 20:00 Mechanical Ventilator 30.0 07/22/18 20:00 61 07/22/18 19:27 60 18 30 07/22/18 19:00 63 20 134/40 (71) 99 07/22/18 18:00 98.0 68 20 131/41 (71) 99 98.0 07/22/18 17:06 72 20 30 07/22/18 17:00 68 20 132/115 (121) 99 07/22/18 16:00 30 07/22/18 16:00 99.2 70 20 142/49 (80) 99 99.2 07/22/18 16:00 Mechanical Ventilator 30.0 07/22/18 15:54 71 07/22/18 15:11 74 20 30 07/22/18 15:00 99.7 73 20 143/45 (77) 100 99.7 07/22/18 14:00 82 16 133/32 (65) 98 07/22/18 13:01 122 30 30 07/22/18 13:00 109 24 155/68 (97) 97 07/22/18 12:58 102.2 07/22/18 12:28 100.8 07/22/18 12:13 124 07/22/18 12:00 101.0 121 20 157/102 (120) 97 101.0 07/22/18 12:00 Mechanical Ventilator 30.0 07/22/18 12:00 30 07/22/18 11:25 Mechanical Ventilator 30 07/22/18 11:05 95 27 30 07/22/18 11:00 110 25 186/57 (100) 99 Status: sedated Condition: critical HEENT: atraumatic Neck: full ROM Lungs: rales, rhonchi Heart: HR/BP stable Abdomen: soft, non-tender Extremities: no C/C/E Micro: Microbiology Date/Time Source Procedure Growth Status 07/20/18 20:00 Blood Blood Culture - Preliminary NO GROWTH AFTER 48 HOURS Resulted 07/20/18 19:45 Blood Blood Culture - Preliminary NO GROWTH AFTER 48 HOURS Resulted 07/20/18 18:06 Sputum Induced Gram Stain - Final Complete 07/20/18 18:06 Sputum Culture - Final Staphylococcus Aureus - Mrsa Complete Accucheck: 108 Critical Care - Subjective ROS Limited/Unobtainable: No Condition: critical EKG Rhythm: Sinus Rhythm FI02: 30 Vent Support Breath Rate: 20 Vent Support Mode: AC Vent Tidal Volume: 600 Sputum Amount: Small PEEP: 5.0 PIP: 32 Tube Feeding Amount: 40 I&O: Intake and Output 07/22/18 07/23/18 19:00 07:00 Intake Total 685 ml 620 ml Output Total 0 ml 250 ml Balance 685 ml 370 ml Free Water 150 ml 30 ml IV Total 55 ml 110 ml Tube Feeding 480 ml 480 ml Output Urine Total 0 ml 250 ml # Voids 1 CXR: RLL infiltrate, ET in good position ET-Tube: 7.5 ET Position: 22 Labs: Laboratory Tests Test 07/23/18 05:00 White Blood Count 9.0 K/UL (4.8-10.8) # Red Blood Count 2.97 M/UL (4.70-6.10) L Hemoglobin 9.0 G/DL (14.2-18.0) L Hematocrit 27.9 % (42.0-52.0) L Mean Corpuscular Volume 94 FL (80-99) Mean Corpuscular Hemoglobin 30.2 PG (27.0-31.0) Mean Corpuscular Hemoglobin Concent 32.1 G/DL (32.0-36.0) Red Cell Distribution Width 15.4 % (11.6-14.8) H Platelet Count 93 K/UL (150-450) L Mean Platelet Volume 8.1 FL (6.5-10.1) Neutrophils (%) (Auto) % (45.0-75.0) Lymphocytes (%) (Auto) % (20.0-45.0) Monocytes (%) (Auto) % (1.0-10.0) Eosinophils (%) (Auto) % (0.0-3.0) Basophils (%) (Auto) % (0.0-2.0) Differential Total Cells Counted 100 Neutrophils % (Manual) 87 % (45-75) H Lymphocytes % (Manual) 5 % (20-45) L Monocytes % (Manual) 4 % (1-10) Eosinophils % (Manual) 4 % (0-3) H Basophils % (Manual) 0 % (0-2) Band Neutrophils 0 % (0-8) Platelet Estimate Decreased L Platelet Morphology Normal Hypochromasia 2+ Anisocytosis 1+ Prothrombin Time 11.4 SEC (9.30-11.50) Prothromb Time International Ratio 1.1 (0.9-1.1) Activated Partial Thromboplast Time 35 SEC (23-33) H Sodium Level 137 MMOL/L (136-145) Potassium Level 3.6 MMOL/L (3.5-5.1) Chloride Level 100 MMOL/L (98-107) Carbon Dioxide Level 30 MMOL/L (21-32) Anion Gap 7 mmol/L (5-15) Blood Urea Nitrogen 56 mg/dL (7-18) H Creatinine 7.3 MG/DL (0.55-1.30) H Estimat Glomerular Filtration Rate 9.1 mL/min (>60) Glucose Level 98 MG/DL (74-106) Uric Acid 3.8 MG/DL (2.6-7.2) Calcium Level 8.5 MG/DL (8.5-10.1) Phosphorus Level 4.6 MG/DL (2.5-4.9) Magnesium Level 2.1 MG/DL (1.8-2.4) Total Bilirubin 0.7 MG/DL (0.2-1.0) Aspartate Amino Transf (AST/SGOT) 26 U/L (15-37) Alanine Aminotransferase (ALT/SGPT) 23 U/L (12-78) Alkaline Phosphatase 104 U/L (46-116) Troponin I 0.196 ng/mL (0.000-0.056) Total Protein 6.2 G/DL (6.4-8.2) L Albumin 2.3 G/DL (3.4-5.0) L Globulin 3.9 g/dL Albumin/Globulin Ratio 0.6 (1.0-2.7) L Denise Rogers MD Jul 23, 2018 10:49
--- NOTE | 2018-07-23 11:04 | Nephrology Progress Note ---
Assessment/Plan Problem List: (1) Acute respiratory failure Assessment: on presentation- worsened (2) ESRD (end stage renal disease) on dialysis (3) Hyperkalemia (4) CHF (congestive heart failure) (5) Anemia in chronic kidney disease (CKD) Assessment ESRD has permacath hyperkalemia Shortness of breath, CHF NOW ACUTE RESPIRATORY FAILURE , ON VENT Encephalopathy condition: 1) ESRD (end stage renal disease) on dialysis (2) Anemia in chronic kidney disease (CKD) (3) Hypertensive kidney disease (4) Encephalopathy (5) DM (6) Hyperlipemia Plan Vent support Dialysis 07/22 next change to 4K optimize cardiac status 2 D echo noted adjust BP meds Anemia work up : ? transfusion if needed adjust BS meds phos binders asa nitrate lopressor per orders Subjective ROS Limited/Unobtainable: Yes Objective Objective Last 24 Hour Vital Signs Date Time Temp Pulse Resp B/P (MAP) Pulse Ox O2 Delivery O2 Flow Rate FiO2 07/23/18 10:00 68 20 138/44 (75) 99 07/23/18 09:28 60 20 30 07/23/18 09:00 61 20 122/44 (70) 99 07/23/18 08:08 119/50 07/23/18 08:07 61 119/50 07/23/18 08:00 Mechanical Ventilator 30.0 07/23/18 08:00 98.3 62 20 119/50 (73) 99 98.3 07/23/18 08:00 30 07/23/18 08:00 62 07/23/18 07:33 61 20 30 07/23/18 07:00 60 20 119/55 (76) 99 07/23/18 06:00 53 20 155/82 (106) 100 07/23/18 05:15 56 20 30 07/23/18 05:00 55 20 137/46 (76) 100 07/23/18 04:00 98.6 59 20 141/55 (83) 100 98.6 07/23/18 04:00 30 07/23/18 04:00 59 07/23/18 04:00 Mechanical Ventilator 30.0 07/23/18 03:10 66 20 30 07/23/18 03:00 57 20 155/47 (83) 98 07/23/18 02:00 57 20 140/44 (76) 98 07/23/18 01:26 61 20 30 07/23/18 01:00 67 20 130/39 (69) 98 07/23/18 00:00 30 07/23/18 00:00 58 07/23/18 00:00 Mechanical Ventilator 30.0 07/23/18 00:00 99.1 58 20 138/43 (74) 99 99.1 07/22/18 23:00 56 20 127/42 (70) 100 07/22/18 22:47 56 20 30 07/22/18 22:00 66 20 110/33 (58) 99 07/22/18 21:16 59 20 30 07/22/18 21:00 60 20 126/35 (65) 99 07/22/18 20:31 63 135/39 07/22/18 20:00 61 20 135/39 (71) 99 07/22/18 20:00 30 07/22/18 20:00 Mechanical Ventilator 30.0 07/22/18 20:00 61 07/22/18 19:27 60 18 30 07/22/18 19:00 63 20 134/40 (71) 99 07/22/18 18:00 98.0 68 20 131/41 (71) 99 98.0 07/22/18 17:06 72 20 30 07/22/18 17:00 68 20 132/115 (121) 99 07/22/18 16:00 30 07/22/18 16:00 99.2 70 20 142/49 (80) 99 99.2 07/22/18 16:00 Mechanical Ventilator 30.0 07/22/18 15:54 71 07/22/18 15:11 74 20 30 07/22/18 15:00 99.7 73 20 143/45 (77) 100 99.7 07/22/18 14:00 82 16 133/32 (65) 98 07/22/18 13:01 122 30 30 07/22/18 13:00 109 24 155/68 (97) 97 07/22/18 12:58 102.2 07/22/18 12:28 100.8 07/22/18 12:13 124 07/22/18 12:00 101.0 121 20 157/102 (120) 97 101.0 07/22/18 12:00 Mechanical Ventilator 30.0 07/22/18 12:00 30 07/22/18 11:25 Mechanical Ventilator 30 07/22/18 11:05 95 27 30 07/22/18 11:00 110 25 186/57 (100) 99 Intake and Output 07/22/18 07/23/18 19:00 07:00 Intake Total 685 ml 620 ml Output Total 0 ml 250 ml Balance 685 ml 370 ml Free Water 150 ml 30 ml IV Total 55 ml 110 ml Tube Feeding 480 ml 480 ml Output Urine Total 0 ml 250 ml # Voids 1 Laboratory Tests 07/23/18 05:00: White Blood Count 9.0#, Red Blood Count 2.97L, Hemoglobin 9.0L, Hematocrit 27.9L , Mean Corpuscular Volume 94, Mean Corpuscular Hemoglobin 30.2, Mean Corpuscular Hemoglobin Concent 32.1, Red Cell Distribution Width 15.4H, Platelet Count 93L, Mean Platelet Volume 8.1, Neutrophils (%) (Auto) , Lymphocytes (%) (Auto) , Monocytes (%) (Auto) , Eosinophils (%) (Auto) , Basophils (%) (Auto) , Differential Total Cells Counted 100, Neutrophils % ( Manual) 87H, Lymphocytes % (Manual) 5L, Monocytes % (Manual) 4, Eosinophils % ( Manual) 4H, Basophils % (Manual) 0, Band Neutrophils 0, Platelet Estimate DecreasedL, Platelet Morphology Normal, Hypochromasia 2+, Anisocytosis 1+, Prothrombin Time 11.4, Prothromb Time International Ratio 1.1, Activated Partial Thromboplast Time 35H, Sodium Level 137, Potassium Level 3.6, Chloride Level 100, Carbon Dioxide Level 30, Anion Gap 7, Blood Urea Nitrogen 56H, Creatinine 7.3H, Estimat Glomerular Filtration Rate 9.1, Glucose Level 98, Uric Acid 3.8, Calcium Level 8.5, Phosphorus Level 4.6, Magnesium Level 2.1, Total Bilirubin 0.7, Aspartate Amino Transf (AST/SGOT) 26, Alanine Aminotransferase ( ALT/SGPT) 23, Alkaline Phosphatase 104, Troponin I 0.196H, Total Protein 6.2L, Albumin 2.3L, Globulin 3.9, Albumin/Globulin Ratio 0.6L Height (Feet): 5 Height (Inches): 8.00 Weight (Pounds): 215 General Appearance: no apparent distress EENT: other - vented Cardiovascular: normal rate Respiratory/Chest: decreased breath sounds Abdomen: distended Objective no change Mirza Conde MD Jul 23, 2018 11:04
[2018-07-23] MEDS: Renvela 800mg Pkt ORAL SCH ×2 (12:21→18:39)
--- NOTE | 2018-07-23 15:17 | Infectious Diseases Prog Note ---
Assessment/Plan Assessment/Plan ASSESSMENT AND PLAN: 1. mrsas pna, aspiration pna, sepsis, fevers, respiratory failure, vent - vancomycin and zosyn - day # 3 - monitor labs and chest x-ray - watch temps 2. Respiratory failure, on vent. 3. End-stage renal disease, on hemodialysis. 4. Intensive care unit care. 5. Skin care protocol. 6. Hypertension. 7. Hypertensive kidney disease. 8. Gastroesophageal reflux disease. 9. Diabetes. 10. Hyperlipidemia. 11. Anemia. 12. Dementia. 13. Allergies are negative. 14. Family history is noncontributory. 15. Social history is negative. 16. MAR was noted. 17. Case was discussed with RN. 18. Notes and records were noted. 19. Orders were entered. 20. Continue treatment per primary consultants. Subjective Constitutional: Reports: fever, fatigue, other - + vent, no pressors HEENT: Reports: congestion, other - intubated Respiratory: Reports: shortness of breath Cardiovascular: Denies: chest pain Gastrointestinal/Abdominal: Denies: nausea, vomiting, diarrhea Genitourinary: Reports: other - + condom cathater Neurologic: Denies: headache Psychiatric: Denies: depression Skin: Denies: rash Hematologic: Denies: bleeding Musculoskeletal: Denies: pain Allergies: Coded Allergies: No Known Allergies (Verified , 11/24/07) UNABLE TO ASSESS (Unverified , 07/15/18) Objective Vital Signs Last 24 Hour Vital Signs Date Time Temp Pulse Resp B/P (MAP) Pulse Ox O2 Delivery O2 Flow Rate FiO2 07/23/18 14:00 67 20 150/80 (103) 98 07/23/18 13:10 30 07/23/18 13:00 69 20 150/47 (81) 98 07/23/18 12:55 80 28 30 07/23/18 12:05 30 07/23/18 12:00 Mechanical Ventilator 30.0 07/23/18 12:00 98.4 81 20 112/37 (62) 99 98.4 07/23/18 12:00 80 07/23/18 12:00 30 07/23/18 11:00 71 20 124/35 (64) 98 07/23/18 10:57 94 07/23/18 10:53 67 21 30 07/23/18 10:00 68 20 138/44 (75) 99 07/23/18 09:28 60 20 30 07/23/18 09:00 61 20 122/44 (70) 99 07/23/18 08:08 119/50 07/23/18 08:07 61 119/50 07/23/18 08:00 Mechanical Ventilator 30.0 07/23/18 08:00 98.3 62 20 119/50 (73) 99 98.3 07/23/18 08:00 30 07/23/18 08:00 62 07/23/18 07:33 61 20 30 07/23/18 07:00 60 20 119/55 (76) 99 07/23/18 06:00 53 20 155/82 (106) 100 07/23/18 05:15 56 20 30 07/23/18 05:00 55 20 137/46 (76) 100 07/23/18 04:00 98.6 59 20 141/55 (83) 100 98.6 07/23/18 04:00 30 07/23/18 04:00 59 07/23/18 04:00 Mechanical Ventilator 30.0 07/23/18 03:10 66 20 30 07/23/18 03:00 57 20 155/47 (83) 98 07/23/18 02:00 57 20 140/44 (76) 98 07/23/18 01:26 61 20 30 07/23/18 01:00 67 20 130/39 (69) 98 07/23/18 00:00 30 07/23/18 00:00 58 07/23/18 00:00 Mechanical Ventilator 30.0 07/23/18 00:00 99.1 58 20 138/43 (74) 99 99.1 07/22/18 23:00 56 20 127/42 (70) 100 07/22/18 22:47 56 20 30 07/22/18 22:00 66 20 110/33 (58) 99 07/22/18 21:16 59 20 30 07/22/18 21:00 60 20 126/35 (65) 99 07/22/18 20:31 63 135/39 07/22/18 20:00 61 20 135/39 (71) 99 07/22/18 20:00 30 07/22/18 20:00 Mechanical Ventilator 30.0 07/22/18 20:00 61 07/22/18 19:27 60 18 30 07/22/18 19:00 63 20 134/40 (71) 99 07/22/18 18:00 98.0 68 20 131/41 (71) 99 98.0 07/22/18 17:06 72 20 30 07/22/18 17:00 68 20 132/115 (121) 99 07/22/18 16:00 30 07/22/18 16:00 99.2 70 20 142/49 (80) 99 99.2 07/22/18 16:00 Mechanical Ventilator 30.0 07/22/18 15:54 71 07/22/18 15:11 74 20 30 Height (Feet): 5 Height (Inches): 8.00 Weight (Pounds): 215 General Appearance: other - on vent, no pressors, more responsive HEENT: normocephalic, atraumatic, anicteric, EOMI, other Respiratory/Chest: crackles/rales, rhonchi - bilaterally Cardiovascular: normal rate, regular rhythm Abdomen: normal bowel sounds, soft, non tender, no organomegaly, non distended Genitourinary: other Extremities: no cyanosis Skin: no rash Neurologic/Psychiatric: girl friday II-XII grossly normal, alert, responsive Lymphatic: no neck adenopathy Musculoskeletal: no effusion Objective 07/23 - Chest x-ray - Technique: One view of the chest Comparison: 07/21/2018 Findings: Bilateral basilar parenchymal opacities, left-sided pleural thickening versus fluid are all unchanged. Stable tube and line positions. Impression: Unchanged, over 2 days, findings as above. Microbiology Date/Time Source Procedure Growth Status 07/20/18 20:00 Blood Blood Culture - Preliminary NO GROWTH AFTER 48 HOURS Resulted 07/20/18 19:45 Blood Blood Culture - Preliminary NO GROWTH AFTER 48 HOURS Resulted 07/20/18 18:06 Sputum Induced Gram Stain - Final Complete 07/20/18 18:06 Sputum Culture - Final Staphylococcus Aureus - Mrsa Complete Laboratory Tests Test 07/23/18 05:00 White Blood Count 9.0 K/UL (4.8-10.8) # Red Blood Count 2.97 M/UL (4.70-6.10) L Hemoglobin 9.0 G/DL (14.2-18.0) L Hematocrit 27.9 % (42.0-52.0) L Mean Corpuscular Volume 94 FL (80-99) Mean Corpuscular Hemoglobin 30.2 PG (27.0-31.0) Mean Corpuscular Hemoglobin Concent 32.1 G/DL (32.0-36.0) Red Cell Distribution Width 15.4 % (11.6-14.8) H Platelet Count 93 K/UL (150-450) L Mean Platelet Volume 8.1 FL (6.5-10.1) Neutrophils (%) (Auto) % (45.0-75.0) Lymphocytes (%) (Auto) % (20.0-45.0) Monocytes (%) (Auto) % (1.0-10.0) Eosinophils (%) (Auto) % (0.0-3.0) Basophils (%) (Auto) % (0.0-2.0) Differential Total Cells Counted 100 Neutrophils % (Manual) 87 % (45-75) H Lymphocytes % (Manual) 5 % (20-45) L Monocytes % (Manual) 4 % (1-10) Eosinophils % (Manual) 4 % (0-3) H Basophils % (Manual) 0 % (0-2) Band Neutrophils 0 % (0-8) Platelet Estimate Decreased L Platelet Morphology Normal Hypochromasia 2+ Anisocytosis 1+ Prothrombin Time 11.4 SEC (9.30-11.50) Prothromb Time International Ratio 1.1 (0.9-1.1) Activated Partial Thromboplast Time 35 SEC (23-33) H Sodium Level 137 MMOL/L (136-145) Potassium Level 3.6 MMOL/L (3.5-5.1) Chloride Level 100 MMOL/L (98-107) Carbon Dioxide Level 30 MMOL/L (21-32) Anion Gap 7 mmol/L (5-15) Blood Urea Nitrogen 56 mg/dL (7-18) H Creatinine 7.3 MG/DL (0.55-1.30) H Estimat Glomerular Filtration Rate 9.1 mL/min (>60) Glucose Level 98 MG/DL (74-106) Uric Acid 3.8 MG/DL (2.6-7.2) Calcium Level 8.5 MG/DL (8.5-10.1) Phosphorus Level 4.6 MG/DL (2.5-4.9) Magnesium Level 2.1 MG/DL (1.8-2.4) Total Bilirubin 0.7 MG/DL (0.2-1.0) Aspartate Amino Transf (AST/SGOT) 26 U/L (15-37) Alanine Aminotransferase (ALT/SGPT) 23 U/L (12-78) Alkaline Phosphatase 104 U/L (46-116) Troponin I 0.196 ng/mL (0.000-0.056) Total Protein 6.2 G/DL (6.4-8.2) L Albumin 2.3 G/DL (3.4-5.0) L Globulin 3.9 g/dL Albumin/Globulin Ratio 0.6 (1.0-2.7) L Current Medications Medications (Trade) Dose Ordered Sig/Praveen Route PRN Reason Start Time Stop Time Status Last Admin Dose Admin Acetaminophen (Tylenol) 650 mg Q4H PRN ORAL fever 07/20/18 08:15 08/15/18 08:14 07/22/18 12:28 Aspirin (ASA) 162 mg DAILY NG 07/24/18 09:00 08/23/18 08:59 Dextrose (Dextrose 50%) 25 ml Q30M PRN IV Hypoglycemia 07/23/18 10:00 08/22/18 09:54 Dextrose (Dextrose 50%) 50 ml Q30M PRN IV hypoglycemia 07/23/18 10:00 08/22/18 09:59 Epoetin Yao (Procrit (for ESRD on dialysis)) 10,000 units [id number]-[id number] SUBQ 07/21/18 21:00 08/15/18 20:59 07/21/18 20:53 Haloperidol Lactate (Haldol) 5 mg Q6H PRN IM Agitation 07/20/18 08:15 08/16/18 08:14 Hydralazine HCl (Apresoline) 10 mg Q4H PRN IV SBP > OR = 160mmHg 07/20/18 15:00 08/19/18 14:59 07/21/18 08:47 Insulin Aspart (NovoLOG) EVERY 6 HOURS SUBQ 07/22/18 00:00 08/16/18 20:59 07/23/18 12:22 Iron Sucrose 100 mg/Sodium Chloride 55 ml @ 200 mls/hr BEDTIME IV 07/20/18 21:00 07/25/18 21:17 07/22/18 20:31 Lorazepam (Ativan 2mg/ml 1ml) 2 mg Q4H PRN IV For Anxiety 07/20/18 09:45 07/27/18 09:29 07/23/18 01:08 Metoprolol Tartrate (Lopressor) 12.5 mg Q12HR NG 07/21/18 21:00 08/20/18 20:59 07/23/18 08:07 Morphine Sulfate (Morphine Sulfate) 4 mg Q4H PRN IVP For Pain 07/20/18 09:30 07/27/18 09:29 07/20/18 21:57 Nitroglycerin (Ntg) 1 patch DAILY TDERMAL 07/21/18 10:30 08/20/18 10:29 07/23/18 08:08 Pantoprazole (Protonix) 40 mg Q12HR IV 07/21/18 21:00 08/19/18 08:59 07/23/18 08:07 Piperacillin Sod/ Tazobactam Sod 2.25 gm/Dextrose 55 ml @ 110 mls/hr Q8H IV 07/20/18 19:30 07/27/18 19:29 07/23/18 11:07 Quetiapine Fumarate (SEROquel) 25 mg Q6H PRN ORAL For Anxiety 07/20/18 08:30 08/15/18 08:29 Quetiapine Fumarate (SEROquel) 100 mg Q8HR ORAL 07/20/18 14:00 08/15/18 13:59 07/23/18 14:42 Sevelamer Carbonate (Renvela) 1,600 mg THREE TIMES A DAY ORAL 07/23/18 13:00 08/15/18 12:59 07/23/18 12:21 Vancomycin HCl (Vanco rx to dose) 1 ea DAILY PRN MISC Per rx protocol 07/20/18 18:00 08/19/18 17:59 Olinda Poon MD Jul 23, 2018 15:17
--- NOTE | 2018-07-23 15:41 | General Progress Note ---
Assessment/Plan Problem List: (1) Encephalopathy due to metabolic factor or toxin SNOMED: 804333889 Assessment/Plan seroquel 100mg tid the pt lack capacity to make decisions. Subjective Date patient seen: Jul 23, 2018 Neurologic/Psychiatric: Reports: anxiety, depressed Allergies: Coded Allergies: No Known Allergies (Verified , 11/24/07) UNABLE TO ASSESS (Unverified , 07/15/18) Subjective the pt is agitated and confused. Objective Last 24 Hour Vital Signs Date Time Temp Pulse Resp B/P (MAP) Pulse Ox O2 Delivery O2 Flow Rate FiO2 07/23/18 15:04 67 20 30 07/23/18 14:00 67 20 150/80 (103) 98 07/23/18 13:10 30 07/23/18 13:00 69 20 150/47 (81) 98 07/23/18 12:55 80 28 30 07/23/18 12:05 30 07/23/18 12:00 Mechanical Ventilator 30.0 07/23/18 12:00 98.4 81 20 112/37 (62) 99 98.4 07/23/18 12:00 80 07/23/18 12:00 30 07/23/18 11:00 71 20 124/35 (64) 98 07/23/18 10:57 94 07/23/18 10:53 67 21 30 07/23/18 10:00 68 20 138/44 (75) 99 07/23/18 09:28 60 20 30 07/23/18 09:00 61 20 122/44 (70) 99 07/23/18 08:08 119/50 07/23/18 08:07 61 119/50 07/23/18 08:00 Mechanical Ventilator 30.0 07/23/18 08:00 98.3 62 20 119/50 (73) 99 98.3 07/23/18 08:00 30 07/23/18 08:00 62 07/23/18 07:33 61 20 30 07/23/18 07:00 60 20 119/55 (76) 99 07/23/18 06:00 53 20 155/82 (106) 100 07/23/18 05:15 56 20 30 07/23/18 05:00 55 20 137/46 (76) 100 07/23/18 04:00 98.6 59 20 141/55 (83) 100 98.6 9/28/18 04:00 30 07/23/18 04:00 59 07/23/18 04:00 Mechanical Ventilator 30.0 07/23/18 03:10 66 20 30 07/23/18 03:00 57 20 155/47 (83) 98 07/23/18 02:00 57 20 140/44 (76) 98 07/23/18 01:26 61 20 30 07/23/18 01:00 67 20 130/39 (69) 98 07/23/18 00:00 30 07/23/18 00:00 58 07/23/18 00:00 Mechanical Ventilator 30.0 07/23/18 00:00 99.1 58 20 138/43 (74) 99 99.1 07/22/18 23:00 56 20 127/42 (70) 100 07/22/18 22:47 56 20 30 07/22/18 22:00 66 20 110/33 (58) 99 07/22/18 21:16 59 20 30 07/22/18 21:00 60 20 126/35 (65) 99 07/22/18 20:31 63 135/39 07/22/18 20:00 61 20 135/39 (71) 99 07/22/18 20:00 30 07/22/18 20:00 Mechanical Ventilator 30.0 07/22/18 20:00 61 07/22/18 19:27 60 18 30 07/22/18 19:00 63 20 134/40 (71) 99 07/22/18 18:00 98.0 68 20 131/41 (71) 99 98.0 07/22/18 17:06 72 20 30 07/22/18 17:00 68 20 132/115 (121) 99 07/22/18 16:00 30 07/22/18 16:00 99.2 70 20 142/49 (80) 99 99.2 07/22/18 16:00 Mechanical Ventilator 30.0 07/22/18 15:54 71 Intake and Output 07/22/18 07/23/18 19:00 07:00 Intake Total 685 ml 620 ml Output Total 0 ml 250 ml Balance 685 ml 370 ml Free Water 150 ml 30 ml IV Total 55 ml 110 ml Tube Feeding 480 ml 480 ml Output Urine Total 0 ml 250 ml # Voids 1 Laboratory Tests 07/23/18 05:00: White Blood Count 9.0#, Red Blood Count 2.97L, Hemoglobin 9.0L, Hematocrit 27.9L , Mean Corpuscular Volume 94, Mean Corpuscular Hemoglobin 30.2, Mean Corpuscular Hemoglobin Concent 32.1, Red Cell Distribution Width 15.4H, Platelet Count 93L, Mean Platelet Volume 8.1, Neutrophils (%) (Auto) , Lymphocytes (%) (Auto) , Monocytes (%) (Auto) , Eosinophils (%) (Auto) , Basophils (%) (Auto) , Differential Total Cells Counted 100, Neutrophils % ( Manual) 87H, Lymphocytes % (Manual) 5L, Monocytes % (Manual) 4, Eosinophils % ( Manual) 4H, Basophils % (Manual) 0, Band Neutrophils 0, Platelet Estimate DecreasedL, Platelet Morphology Normal, Hypochromasia 2+, Anisocytosis 1+, Prothrombin Time 11.4, Prothromb Time International Ratio 1.1, Activated Partial Thromboplast Time 35H, Sodium Level 137, Potassium Level 3.6, Chloride Level 100, Carbon Dioxide Level 30, Anion Gap 7, Blood Urea Nitrogen 56H, Creatinine 7.3H, Estimat Glomerular Filtration Rate 9.1, Glucose Level 98, Uric Acid 3.8, Calcium Level 8.5, Phosphorus Level 4.6, Magnesium Level 2.1, Total Bilirubin 0.7, Aspartate Amino Transf (AST/SGOT) 26, Alanine Aminotransferase ( ALT/SGPT) 23, Alkaline Phosphatase 104, Troponin I 0.196H, Total Protein 6.2L, Albumin 2.3L, Globulin 3.9, Albumin/Globulin Ratio 0.6L Height (Feet): 5 Height (Inches): 8.00 Weight (Pounds): 215 General Appearance: no apparent distress, lethargic, confused Tara Ward MD Jul 23, 2018 15:41
--- NOTE | 2018-07-23 17:13 | Cardiology Progress Note ---
Assessment/Plan Status: stable Assessment/Plan Assessment: 1) ESRD (end stage renal disease) on dialysis (2) Anemia in chronic kidney disease (CKD) (3) Hypertensive kidney disease (4) Encephalopathy (5) DM (6) Hyperlipemia Plan: Maintain hemodialysis Echocardiogram --> preserved systolic function, mild valvular regurgitation, mild pulmonary hypertension, elevated filling pressures Stress text next week to evaluate chest pain given multiple cardiac risk factors and NSVT - currently unstable to proceed Aspirin Statin Serial EKG/Troponin No indication for troponin at this time. No indication for urgent cardiac cath LE ultrasound PRBC transfusion Maintain hemodialysis Vent care Tube feeds Poor prognosis Subjective Cardiovascular: Reports: no symptoms Respiratory: Reports: no symptoms Gastrointestinal/Abdominal: Reports: no symptoms Genitourinary: Reports: no symptoms Subjective Patient placed back on AC, plan for another round of HD tomorrow. no events today Objective Last 24 Hour Vital Signs Date Time Temp Pulse Resp B/P (MAP) Pulse Ox O2 Delivery O2 Flow Rate FiO2 07/23/18 16:55 67 20 30 07/23/18 16:00 63 07/23/18 16:00 Mechanical Ventilator 30.0 07/23/18 16:00 30 07/23/18 16:00 97.6 63 20 120/38 (65) 99 97.6 07/23/18 15:04 67 20 30 07/23/18 15:00 68 20 121/39 (66) 98 07/23/18 14:00 67 20 150/80 (103) 98 07/23/18 13:10 30 07/23/18 13:00 69 20 150/47 (81) 98 07/23/18 12:55 80 28 30 07/23/18 12:05 30 07/23/18 12:00 Mechanical Ventilator 30.0 07/23/18 12:00 98.4 81 20 112/37 (62) 99 98.4 07/23/18 12:00 80 07/23/18 12:00 30 07/23/18 11:00 71 20 124/35 (64) 98 07/23/18 10:57 94 07/23/18 10:53 67 21 30 07/23/18 10:00 68 20 138/44 (75) 99 07/23/18 09:28 60 20 30 07/23/18 09:00 61 20 122/44 (70) 99 07/23/18 08:08 119/50 07/23/18 08:07 61 119/50 07/23/18 08:00 Mechanical Ventilator 30.0 07/23/18 08:00 98.3 62 20 119/50 (73) 99 98.3 07/23/18 08:00 30 07/23/18 08:00 62 07/23/18 07:33 61 20 30 07/23/18 07:00 60 20 119/55 (76) 99 07/23/18 06:00 53 20 155/82 (106) 100 07/23/18 05:15 56 20 30 07/23/18 05:00 55 20 137/46 (76) 100 07/23/18 04:00 98.6 59 20 141/55 (83) 100 98.6 07/23/18 04:00 30 07/23/18 04:00 59 07/23/18 04:00 Mechanical Ventilator 30.0 07/23/18 03:10 66 20 30 07/23/18 03:00 57 20 155/47 (83) 98 07/23/18 02:00 57 20 140/44 (76) 98 07/23/18 01:26 61 20 30 07/23/18 01:00 67 20 130/39 (69) 98 07/23/18 00:00 30 07/23/18 00:00 58 07/23/18 00:00 Mechanical Ventilator 30.0 07/23/18 00:00 99.1 58 20 138/43 (74) 99 99.1 07/22/18 23:00 56 20 127/42 (70) 100 07/22/18 22:47 56 20 30 07/22/18 22:00 66 20 110/33 (58) 99 07/22/18 21:16 59 20 30 07/22/18 21:00 60 20 126/35 (65) 99 07/22/18 20:31 63 135/39 07/22/18 20:00 61 20 135/39 (71) 99 07/22/18 20:00 30 07/22/18 20:00 Mechanical Ventilator 30.0 07/22/18 20:00 61 07/22/18 19:27 60 18 30 07/22/18 19:00 63 20 134/40 (71) 99 07/22/18 18:00 98.0 68 20 131/41 (71) 99 98.0 General Appearance: no apparent distress, lethargic, on vent EENT: PERRL/EOMI, normal ENT inspection, TMs normal, pharynx normal Neck: non-tender, normal alignment, supple, normal inspection, no JVD Rhythm: NSR Cardiovascular: normal peripheral pulses, normal rate, regular rhythm Respiratory/Chest: decreased breath sounds, accessory muscle use, crackles/ rales, rhonchi - bilaterally Abdomen: normal bowel sounds, non tender, soft, no organomegaly, no mass Neurologic: screen tacker II-XII grossly normal, no motor/sensory deficits, motor weakness, unresponsiveness Intake and Output 07/22/18 07/23/18 19:00 07:00 Intake Total 685 ml 620 ml Output Total 0 ml 250 ml Balance 685 ml 370 ml Free Water 150 ml 30 ml IV Total 55 ml 110 ml Tube Feeding 480 ml 480 ml Output Urine Total 0 ml 250 ml # Voids 1 Laboratory Tests Test 07/23/18 05:00 White Blood Count 9.0 K/UL (4.8-10.8) # Red Blood Count 2.97 M/UL (4.70-6.10) L Hemoglobin 9.0 G/DL (14.2-18.0) L Hematocrit 27.9 % (42.0-52.0) L Mean Corpuscular Volume 94 FL (80-99) Mean Corpuscular Hemoglobin 30.2 PG (27.0-31.0) Mean Corpuscular Hemoglobin Concent 32.1 G/DL (32.0-36.0) Red Cell Distribution Width 15.4 % (11.6-14.8) H Platelet Count 93 K/UL (150-450) L Mean Platelet Volume 8.1 FL (6.5-10.1) Neutrophils (%) (Auto) % (45.0-75.0) Lymphocytes (%) (Auto) % (20.0-45.0) Monocytes (%) (Auto) % (1.0-10.0) Eosinophils (%) (Auto) % (0.0-3.0) Basophils (%) (Auto) % (0.0-2.0) Differential Total Cells Counted 100 Neutrophils % (Manual) 87 % (45-75) H Lymphocytes % (Manual) 5 % (20-45) L Monocytes % (Manual) 4 % (1-10) Eosinophils % (Manual) 4 % (0-3) H Basophils % (Manual) 0 % (0-2) Band Neutrophils 0 % (0-8) Platelet Estimate Decreased L Platelet Morphology Normal Hypochromasia 2+ Anisocytosis 1+ Prothrombin Time 11.4 SEC (9.30-11.50) Prothromb Time International Ratio 1.1 (0.9-1.1) Activated Partial Thromboplast Time 35 SEC (23-33) H Sodium Level 137 MMOL/L (136-145) Potassium Level 3.6 MMOL/L (3.5-5.1) Chloride Level 100 MMOL/L (98-107) Carbon Dioxide Level 30 MMOL/L (21-32) Anion Gap 7 mmol/L (5-15) Blood Urea Nitrogen 56 mg/dL (7-18) H Creatinine 7.3 MG/DL (0.55-1.30) H Estimat Glomerular Filtration Rate 9.1 mL/min (>60) Glucose Level 98 MG/DL (74-106) Uric Acid 3.8 MG/DL (2.6-7.2) Calcium Level 8.5 MG/DL (8.5-10.1) Phosphorus Level 4.6 MG/DL (2.5-4.9) Magnesium Level 2.1 MG/DL (1.8-2.4) Total Bilirubin 0.7 MG/DL (0.2-1.0) Aspartate Amino Transf (AST/SGOT) 26 U/L (15-37) Alanine Aminotransferase (ALT/SGPT) 23 U/L (12-78) Alkaline Phosphatase 104 U/L (46-116) Troponin I 0.196 ng/mL (0.000-0.056) Total Protein 6.2 G/DL (6.4-8.2) L Albumin 2.3 G/DL (3.4-5.0) L Globulin 3.9 g/dL Albumin/Globulin Ratio 0.6 (1.0-2.7) L Microbiology Date/Time Source Procedure Growth Status 07/20/18 20:00 Blood Blood Culture - Preliminary NO GROWTH AFTER 48 HOURS Resulted 07/20/18 19:45 Blood Blood Culture - Preliminary NO GROWTH AFTER 48 HOURS Resulted 07/20/18 18:06 Sputum Induced Gram Stain - Final Complete 07/20/18 18:06 Sputum Culture - Final Staphylococcus Aureus - Mrsa Complete Yimi Luevano MD Jul 23, 2018 17:13
--- NOTE | 2018-07-23 18:14 | General Progress Note ---
Assessment/Plan Problem List: (1) Acute hypercapnic respiratory failure ICD Codes: J96.02 - Acute respiratory failure with hypercapnia SNOMED: 287566661 (2) Severe sepsis ICD Codes: A41.9 - Sepsis, unspecified organism; R65.20 - Severe sepsis without septic shock SNOMED: 97297460 (3) Hyperkalemia ICD Codes: E87.5 - Hyperkalemia SNOMED: 78861289 (4) Acute on chronic diastolic (congestive) heart failure ICD Codes: I50.33 - Acute on chronic diastolic (congestive) heart failure SNOMED: 92925377, 345007260 (5) Acute metabolic encephalopathy ICD Codes: G93.41 - Metabolic encephalopathy SNOMED: 91203775, 944682905 (6) ESRD (end stage renal disease) on dialysis ICD Codes: N18.6 - End stage renal disease; Z99.2 - Dependence on renal dialysis SNOMED: 757032132 (7) HTN (hypertension) ICD Codes: I10 - Essential (primary) hypertension SNOMED: 61811052 (8) Hypertensive heart and renal disease ICD Codes: I13.10 - Hypertensive heart and chronic kidney disease without heart failure, with stage 1 through stage 4 chronic kidney disease, or unspecified chronic kidney disease SNOMED: 67314393 (9) Anemia in ESRD (end-stage renal disease) ICD Codes: N18.6 - End stage renal disease; D63.1 - Anemia in chronic kidney disease SNOMED: 95349744, 753161022 (10) Dementia with psychosis ICD Codes: F03.91 - Unspecified dementia with behavioral disturbance SNOMED: 62074044, 19408880 (11) Pancytopenia ICD Codes: D61.818 - Other pancytopenia SNOMED: 473745334 Status: stable Assessment/Plan # Acute hypercapnic respiratory failure - possibly 2/2 aspiration pneumonia vs HCAP - Pulm consulted - Pt now intubated and on vent since 07/20 - Wean vent as tolerated - F/u CT chest--compressive atelectasis and consolidation of significant portion of the right lower lobe, compressive atelectatic changes of the posterior right upper lobe, patchy consolidation and ground-glass opacity within the right upper lobe, right middle lobe, and left lower lobe, consolidation likely on the basis of infiltrates or pulmonary edema - Daily SBTs, sedation holidays - Monitor CXR - ID consulted - Empiric vanco and zosyn 07/20- # Severe sepsis # Health care associated pneumonia vs aspiration pneumonia - ID consulted - Empiric vanco and zosyn 07/20- - F/u sputum culture - CT chest reviewed as above # Severe hyperkalemia - K 8.4 on admit, now improved s/p HD # Metabolic acidosis # ESRD on HD - Transferred out of ICU on 07/17/18 - Pulm/critical care consulted - Renal consulted - cont HD per renal. Last HD yesterday - Cont renvela # Acute on chronic diastolic heart failure - Cardiology consulted - Check TTE --> EF wnl - HD for volume removal # NSTEMI type 2 - likely demand ischemia in setting of volume overload - Cardiology consulted - ASA - TTE reviewed and showed normal EF - Stress test on hold given acute issues # Acute metabolic encephalopathy - likely in setting of metabolic derangements from renal dysfcn # Dementia with psychosis - Psych consulted - Seroquel 100mg TID - ctm # HTN # Hypertensive heart and renal disease - Cont MTP 12.5mg BID # Pancytopenia # Anemia in ESRD # Thrombocytopenia # Leukopenia - Heme/onc consulted - EPO per renal - IV venofer - s/p 1U pRBC on 07/17/18 - ctm CBC # FEN/PPX - Diet: tube feeds - IVFs: none - DVT ppx: HSQ, SCDs Code Status: Full Hospital Classification Declaration: Based on this initial evaluation, and depending on the patient's clinical course, I anticipate that this patient will require hospitalization for 3-4 days for volume overload, severe hyperK and close respiratory/hemodynamic monitoring. Disposition: Once the patient is stable to leave the hospital, I anticipate the patient will likely be discharged to the following environment: back to SNF At the time of my involvement, the patient's condition was critical with high potential for and/or physiologic deterioration secondary to acute respiratory failure, severe sepsis as delineated in the note above. On the above date of service, I spent a total of 36 minutes in the ICU evaluating, managing, and providing critical care services to this patient, including time spent documenting these activities, counseling patient/family, and coordinating care. 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 Subjective Date patient seen: Jul 23, 2018 Time patient seen: 11:00 ROS Limited/Unobtainable: Yes Allergies: Coded Allergies: No Known Allergies (Verified , 11/24/07) UNABLE TO ASSESS (Unverified , 07/15/18) Subjective No acute o/n events Afebrile, VSS Not requiring pressuors Pt intubated, sedated but arousable Objective Last 24 Hour Vital Signs Date Time Temp Pulse Resp B/P (MAP) Pulse Ox O2 Delivery O2 Flow Rate FiO2 07/23/18 17:00 67 20 146/43 (77) 100 07/23/18 16:55 67 20 30 07/23/18 16:00 63 07/23/18 16:00 Mechanical Ventilator 30.0 07/23/18 16:00 30 07/23/18 16:00 97.6 63 20 120/38 (65) 99 97.6 07/23/18 15:04 67 20 30 07/23/18 15:00 68 20 121/39 (66) 98 07/23/18 14:00 67 20 150/80 (103) 98 07/23/18 13:10 30 07/23/18 13:00 69 20 150/47 (81) 98 07/23/18 12:55 80 28 30 07/23/18 12:05 30 07/23/18 12:00 Mechanical Ventilator 30.0 07/23/18 12:00 98.4 81 20 112/37 (62) 99 98.4 07/23/18 12:00 80 07/23/18 12:00 30 07/23/18 11:00 71 20 124/35 (64) 98 07/23/18 10:57 94 07/23/18 10:53 67 21 30 07/23/18 10:00 68 20 138/44 (75) 99 07/23/18 09:28 60 20 30 07/23/18 09:00 61 20 122/44 (70) 99 07/23/18 08:08 119/50 07/23/18 08:07 61 119/50 07/23/18 08:00 Mechanical Ventilator 30.0 07/23/18 08:00 98.3 62 20 119/50 (73) 99 98.3 07/23/18 08:00 30 07/23/18 08:00 62 07/23/18 07:33 61 20 30 07/23/18 07:00 60 20 119/55 (76) 99 07/23/18 06:00 53 20 155/82 (106) 100 07/23/18 05:15 56 20 30 07/23/18 05:00 55 20 137/46 (76) 100 07/23/18 04:00 98.6 59 20 141/55 (83) 100 98.6 07/23/18 04:00 30 07/23/18 04:00 59 07/23/18 04:00 Mechanical Ventilator 30.0 07/23/18 03:10 66 20 30 07/23/18 03:00 57 20 155/47 (83) 98 07/23/18 02:00 57 20 140/44 (76) 98 07/23/18 01:26 61 20 30 07/23/18 01:00 67 20 130/39 (69) 98 07/23/18 00:00 30 07/23/18 00:00 58 07/23/18 00:00 Mechanical Ventilator 30.0 07/23/18 00:00 99.1 58 20 138/43 (74) 99 99.1 07/22/18 23:00 56 20 127/42 (70) 100 07/22/18 22:47 56 20 30 07/22/18 22:00 66 20 110/33 (58) 99 07/22/18 21:16 59 20 30 07/22/18 21:00 60 20 126/35 (65) 99 07/22/18 20:31 63 135/39 07/22/18 20:00 61 20 135/39 (71) 99 07/22/18 20:00 30 07/22/18 20:00 Mechanical Ventilator 30.0 07/22/18 20:00 61 07/22/18 19:27 60 18 30 07/22/18 19:00 63 20 134/40 (71) 99 Intake and Output 07/22/18 07/23/18 19:00 07:00 Intake Total 685 ml 620 ml Output Total 0 ml 250 ml Balance 685 ml 370 ml Free Water 150 ml 30 ml IV Total 55 ml 110 ml Tube Feeding 480 ml 480 ml Output Urine Total 0 ml 250 ml # Voids 1 Laboratory Tests 07/23/18 05:00: White Blood Count 9.0#, Red Blood Count 2.97L, Hemoglobin 9.0L, Hematocrit 27.9L , Mean Corpuscular Volume 94, Mean Corpuscular Hemoglobin 30.2, Mean Corpuscular Hemoglobin Concent 32.1, Red Cell Distribution Width 15.4H, Platelet Count 93L, Mean Platelet Volume 8.1, Neutrophils (%) (Auto) , Lymphocytes (%) (Auto) , Monocytes (%) (Auto) , Eosinophils (%) (Auto) , Basophils (%) (Auto) , Differential Total Cells Counted 100, Neutrophils % ( Manual) 87H, Lymphocytes % (Manual) 5L, Monocytes % (Manual) 4, Eosinophils % ( Manual) 4H, Basophils % (Manual) 0, Band Neutrophils 0, Platelet Estimate DecreasedL, Platelet Morphology Normal, Hypochromasia 2+, Anisocytosis 1+, Prothrombin Time 11.4, Prothromb Time International Ratio 1.1, Activated Partial Thromboplast Time 35H, Sodium Level 137, Potassium Level 3.6, Chloride Level 100, Carbon Dioxide Level 30, Anion Gap 7, Blood Urea Nitrogen 56H, Creatinine 7.3H, Estimat Glomerular Filtration Rate 9.1, Glucose Level 98, Uric Acid 3.8, Calcium Level 8.5, Phosphorus Level 4.6, Magnesium Level 2.1, Total Bilirubin 0.7, Aspartate Amino Transf (AST/SGOT) 26, Alanine Aminotransferase ( ALT/SGPT) 23, Alkaline Phosphatase 104, Troponin I 0.196H, Total Protein 6.2L, Albumin 2.3L, Globulin 3.9, Albumin/Globulin Ratio 0.6L Height (Feet): 5 Height (Inches): 8.00 Weight (Pounds): 215 Objective General: intubated, sedated Head: normocephalic, without obvious abnormality, atraumatic Eyes: conjunctivae/corneas clear. PERRL, EOM's intact Throat: lips, mucosa, and tongue normal. MMM Neck: supple, symmetrical, trachea midline, and no JVD Lungs: clear to auscultation bilaterally Heart: regular rate and rhythm, S1, S2 normal, no murmur, click, rub or gallop Abdomen: soft, non-tender, non-distended, bowel sounds normal; no masses or organomegaly Extremities: extremities normal, atraumatic, no cyanosis or edema Pulses: 2+ and symmetric Skin: skin color, texture, turgor normal; no rashes or lesions Neurologic: grossly normal, no focal deficits Kamilla Padgett M.D. Jul 23, 2018 18:14
[2018-07-23] MEDS: Epogen (for ESRD on dialysis) SUBQ SCH (22:12)
[2018-07-24] VITALS (24 sets, daily range): BP systolic 116–164; BP diastolic 28–84
[2018-07-24] MEDS: Zosyn 2.25 gm in D5W 55ml IV SCH ×3 (03:45→20:16)
[2018-07-24] MEDS: LORazepam Inj 2mg/ml 1ml IV PRN (04:11)
[2018-07-24] MEDS: NovoLOG Insulin Flexpen SUBQ SCH ×4 (06:01→17:52)
[2018-07-24] MEDS ORDERED: Albuterol/Ipratropium 3ml neb HHN PRN (07:00)
--- NOTE | 2018-07-24 07:02 | Pulmonolgy Critical Care Note ---
Critical Care - Asmt/Plan Assessment/Plan: ASSESSMENT acute hypercapnic respiratory failure, requiring intubation sepsis MRSA pneumonia, probably aspiration acute metabolic encephalopathy hypertensive heart and kidney disease end-stage renal disease, on hemodialysis elevated troponin acute on chronic diastolic heart failure hyperlipidemia diabetes mellitus COPD/asthma pulmonary hypertension anemia of chronic kidney disease dementia with psychosis pancytopenia PLAN OF CARE ICU status vent support ; pulm toilet daily CXR and ABG , titrate settings prn wean protocol as tolerated ECHO with pEF 55-60% and RVSP of 43, c/w mild pulm HTN likely due to underlying COPD CT chest noted strict aspiration precautions, NGT feeding elevated troponin , trended, possibly leaking due to ESRD, possible NSTEMI- per cardio recs cardio follows on a/PLT therapy with ASA, beta yulissa and Nitro prn lipid panel stable not stable fro stress test to proceed ( multiple cardiac risk factors, NSVT) no indication for urgent cardiac cath -as per cardio off Heparin SQ due to low PLT Venous Duplex BLE negative , on SCD abx, ID follows sputum cx + MRSA, blood cx negative HD as per tarp repairer; monitor volumes and cardiorenal parameters. monitor H&H , s/p total of 3 u PRBC on EPO and Venofer heme follows HIV and hepatitis screen negative, monitor counts BS management with SSI GI prophylaxis bowel regimen pain management prn psych follows per psych pt lacks capacity to make decision, Seroquel prn as per psych case discussed and evaluated by supervising physician Critical Care - Objective Last 24 Hour Vital Signs Date Time Temp Pulse Resp B/P (MAP) Pulse Ox O2 Delivery O2 Flow Rate FiO2 07/24/18 05:00 64 20 30 07/24/18 04:00 Mechanical Ventilator 30.0 07/24/18 04:00 98.6 64 20 154/84 (107) 100 98.6 07/24/18 04:00 66 07/24/18 04:00 30 07/24/18 03:00 66 25 30 07/24/18 03:00 62 20 150/84 (106) 100 07/24/18 02:00 67 20 150/31 (70) 100 07/24/18 01:06 72 20 30 07/24/18 01:00 70 22 116/28 (57) 100 07/24/18 00:00 98.6 68 19 155/52 (86) 100 98.6 07/24/18 00:00 64 9/29/18 00:00 30 07/24/18 00:00 Mechanical Ventilator 30.0 07/23/18 23:05 75 20 30 07/23/18 23:00 68 22 148/48 (81) 100 07/23/18 22:00 69 20 148/48 (81) 98 07/23/18 21:25 79 20 30 07/23/18 21:18 70 154/47 07/23/18 21:00 70 18 131/41 (71) 100 07/23/18 20:00 99.5 66 19 159/47 (84) 99 99.5 07/23/18 20:00 30 07/23/18 20:00 Mechanical Ventilator 30.0 07/23/18 20:00 66 07/23/18 19:10 72 21 30 07/23/18 19:00 69 20 135/40 (71) 100 07/23/18 18:00 62 20 148/42 (77) 100 07/23/18 17:00 67 20 146/43 (77) 100 07/23/18 16:55 67 20 30 07/23/18 16:00 63 07/23/18 16:00 Mechanical Ventilator 30.0 07/23/18 16:00 30 07/23/18 16:00 97.6 63 20 120/38 (65) 99 97.6 07/23/18 15:04 67 20 30 07/23/18 15:00 68 20 121/39 (66) 98 07/23/18 14:00 67 20 150/80 (103) 98 07/23/18 13:10 30 07/23/18 13:00 69 20 150/47 (81) 98 07/23/18 12:55 80 28 30 07/23/18 12:05 30 07/23/18 12:00 Mechanical Ventilator 30.0 07/23/18 12:00 98.4 81 20 112/37 (62) 99 98.4 07/23/18 12:00 80 07/23/18 12:00 30 07/23/18 11:00 71 20 124/35 (64) 98 07/23/18 10:57 94 07/23/18 10:53 67 21 30 07/23/18 10:00 68 20 138/44 (75) 99 9/28/18 09:28 60 20 30 07/23/18 09:00 61 20 122/44 (70) 99 07/23/18 08:08 119/50 07/23/18 08:07 61 119/50 07/23/18 08:00 Mechanical Ventilator 30.0 07/23/18 08:00 98.3 62 20 119/50 (73) 99 98.3 07/23/18 08:00 30 07/23/18 08:00 62 07/23/18 07:33 61 20 30 07/23/18 07:00 60 20 119/55 (76) 99 Condition: critical HEENT: atraumatic, normocephalic, other - OP with ET in place, intact, NGT with TF Neck: other - R subclavian HD catehter intact Lungs: rales - bibasilar crackles Heart: HR/BP stable Abdomen: soft, non-tender, active bowel sounds Extremities: other - + 1 edema BLE Accucheck: 111 Critical Care - Subjective ROS Limited/Unobtainable: Yes Interval Events: remains intubated no signs of resp distress on current seatings low grade fever 100.3 this am, no leukocytosis currently on dialysis Condition: critical IV Access: peripheral - L hand FI02: 30 Vent Support Breath Rate: 20 Vent Support Mode: AC Vent Tidal Volume: 600 Sputum Amount: Small PEEP: 0.0 PIP: 33 Tube Feeding Amount: 40 I&O: Intake and Output 07/23/18 07/24/18 19:00 07:00 Intake Total 565 ml 495 ml Output Total 255 ml 410 ml Balance 310 ml 85 ml Free Water 30 ml IV Total 55 ml 55 ml Tube Feeding 480 ml 440 ml Output Urine Total 255 ml 410 ml # Bowel Movements 1 CXR: 07/23 Bilateral basilar parenchymal opacities, left-sided pleural thickening versus fluid are all unchanged. Stable tube and line positions. ET-Tube: 7.5 ET Position: 22 Fernanda Chacon NP Jul 24, 2018 07:02
[2018-07-24 07:05] LABS: ALANINE AMINOTRANSFERASE 22 U/L (12-78); ALBUMIN 2.6 G/DL (3.4-5.0); ALBUMIN/GLOBULIN RATIO 0.7 (1.0-2.7); ALKALINE PHOSPHATASE 98 U/L (46-116); ANION GAP 17 mmol/L (5-15); ASPARTATE AMINO TRANSFERASE 29 U/L (15-37); BILIRUBIN,TOTAL 0.6 MG/DL (0.2-1.0); BLOOD UREA NITROGEN 89 mg/dL (7-18); CALCIUM 8.5 MG/DL (8.5-10.1); CARBON DIOXIDE 22 MMOL/L (21-32); CHLORIDE 99 MMOL/L (98-107); PHOSPHORUS 6.8 MG/DL (2.5-4.9); POTASSIUM 3.3 MMOL/L (3.5-5.1); SODIUM 138 MMOL/L (136-145)
[2018-07-24 07:15] LABS: HEMOGLOBIN 8.8 G/DL (14.2-18.0); MEAN CORPUSCULAR VOLUME 94 FL (80-99); PLATELET COUNT 93 K/UL (150-450); RED BLOOD COUNT 2.87 M/UL (4.70-6.10); RED CELL DISTRIBUTION WIDTH 15.6 % (11.6-14.8)
[2018-07-24] MEDS: Renvela 800mg Pkt ORAL SCH ×3 (08:23→17:49)
[2018-07-24] MEDS: Pantoprazole Inj IV SCH ×2 (08:23→20:51)
[2018-07-24] MEDS: Metoprolol Tartrate 12.5mg TAB NG SCH ×2 (08:24→20:52)
[2018-07-24] MEDS: Nitroglycerin Patch 0.4mg TDERMAL SCH (08:25)
[2018-07-24] MEDS: Aspirin Baby 81mg NG SCH (08:25)
--- NOTE | 2018-07-24 09:03 | Diagnostic Imaging Report ---
EXAM: XR Chest, 1 View CLINICAL HISTORY: DYSPNEA TECHNIQUE: Frontal view of the chest. COMPARISON: Chest x-ray dated 07/23/18 FINDINGS: Lungs: Interval mild improvement of aeration in bilateral lung bases, with mild residual bibasilar opacities, possibly atelectasis versus infiltrates. Persistently increased interstitial markings. Pleural space: Subtle blunting of the left costophrenic angle persists, which may represent trace effusion versus pleural thickening. Heart: Unremarkable. No cardiomegaly. Mediastinum: Unremarkable. Bones/joints: Median sternotomy wires appear intact. Mild degenerative changes throughout the visualized spine. Tubes, lines and devices: Stable positioning of endotracheal tube, right IJ central venous catheter, and nasogastric tubes. EKG leads overlie the thorax. IMPRESSION: 1. Interval mild improvement of aeration in bilateral lung bases, with mild residual bibasilar opacities, which may represent subsegmental atelectasis versus infiltrates. 2. Subtle blunting of the left costophrenic angle persists, which may represent a small effusion versus pleural thickening. 3. Persistently increased interstitial markings. This may be related to mild pulmonary vascular congestion and underlying pneumonitis.
--- NOTE | 2018-07-24 10:17 | Nephrology Progress Note ---
Assessment/Plan Problem List: (1) Acute respiratory failure Assessment: on presentation- worsened (2) ESRD (end stage renal disease) on dialysis (3) Hyperkalemia (4) CHF (congestive heart failure) (5) Anemia in chronic kidney disease (CKD) Assessment ESRD has permacath hyperkalemia Shortness of breath, CHF NOW ACUTE RESPIRATORY FAILURE , ON VENT Encephalopathy condition: 1) ESRD (end stage renal disease) on dialysis (2) Anemia in chronic kidney disease (CKD) (3) Hypertensive kidney disease (4) Encephalopathy (5) DM (6) Hyperlipemia Plan Vent support Dialysis 07/22 next change to 4K optimize cardiac status 2 D echo noted adjust BP meds Anemia work up : ? transfusion if needed adjust BS meds phos binders asa nitrate lopressor per orders Subjective ROS Limited/Unobtainable: Yes Objective Objective Last 24 Hour Vital Signs Date Time Temp Pulse Resp B/P (MAP) Pulse Ox O2 Delivery O2 Flow Rate FiO2 07/24/18 10:02 59 20 30 07/24/18 10:00 58 20 145/44 (77) 99 07/24/18 09:23 Mechanical Ventilator 30 07/24/18 09:00 58 20 152/42 (78) 99 07/24/18 08:25 159/41 07/24/18 08:24 58 159/41 07/24/18 08:00 100.3 57 20 159/41 (80) 99 100.3 07/24/18 08:00 30 07/24/18 08:00 Mechanical Ventilator 30.0 07/24/18 08:00 59 07/24/18 07:59 58 20 30 07/24/18 07:00 58 20 158/47 (84) 97 07/24/18 06:00 69 20 131/52 (78) 100 07/24/18 05:00 68 18 154/52 (86) 100 07/24/18 05:00 64 20 30 07/24/18 04:00 Mechanical Ventilator 30.0 07/24/18 04:00 98.6 64 20 154/84 (107) 100 98.6 07/24/18 04:00 66 07/24/18 04:00 30 07/24/18 03:00 66 25 30 07/24/18 03:00 62 20 150/84 (106) 100 07/24/18 02:00 67 20 150/31 (70) 100 07/24/18 01:06 72 20 30 07/24/18 01:00 70 22 116/28 (57) 100 07/24/18 00:00 98.6 68 19 155/52 (86) 100 98.6 07/24/18 00:00 64 07/24/18 00:00 30 07/24/18 00:00 Mechanical Ventilator 30.0 07/23/18 23:05 75 20 30 07/23/18 23:00 68 22 148/48 (81) 100 07/23/18 22:00 69 20 148/48 (81) 98 07/23/18 21:25 79 20 30 07/23/18 21:18 70 154/47 07/23/18 21:00 70 18 131/41 (71) 100 07/23/18 20:00 99.5 66 19 159/47 (84) 99 99.5 07/23/18 20:00 30 07/23/18 20:00 Mechanical Ventilator 30.0 07/23/18 20:00 66 07/23/18 19:10 72 21 30 07/23/18 19:00 69 20 135/40 (71) 100 07/23/18 18:00 62 20 148/42 (77) 100 07/23/18 17:00 67 20 146/43 (77) 100 07/23/18 16:55 67 20 30 07/23/18 16:00 63 07/23/18 16:00 Mechanical Ventilator 30.0 07/23/18 16:00 30 07/23/18 16:00 97.6 63 20 120/38 (65) 99 97.6 07/23/18 15:04 67 20 30 07/23/18 15:00 68 20 121/39 (66) 98 07/23/18 14:00 67 20 150/80 (103) 98 07/23/18 13:10 30 07/23/18 13:00 69 20 150/47 (81) 98 07/23/18 12:55 80 28 30 07/23/18 12:05 30 07/23/18 12:00 Mechanical Ventilator 30.0 07/23/18 12:00 98.4 81 20 112/37 (62) 99 98.4 07/23/18 12:00 80 07/23/18 12:00 30 07/23/18 11:00 71 20 124/35 (64) 98 07/23/18 10:57 94 07/23/18 10:53 67 21 30 Intake and Output 07/23/18 07/24/18 19:00 07:00 Intake Total 565 ml 590 ml Output Total 255 ml 410 ml Balance 310 ml 180 ml Free Water 30 ml IV Total 55 ml 110 ml Tube Feeding 480 ml 480 ml Output Urine Total 255 ml 410 ml # Bowel Movements 1 Laboratory Tests 07/24/18 04:00: Arterial Blood pH 7.540H, Arterial Blood Partial Pressure CO2 32.1L, Arterial Blood Partial Pressure O2 75.4, Arterial Blood HCO3 26.8H, Arterial Blood Oxygen Saturation 94.8L, Arterial Blood Base Excess 4.2H, Calvin Test Positive 07/24/18 06:20: White Blood Count 8.0, Red Blood Count 2.87L, Hemoglobin 8.8L, Hematocrit 27.0L , Mean Corpuscular Volume 94, Mean Corpuscular Hemoglobin 30.7, Mean Corpuscular Hemoglobin Concent 32.7, Red Cell Distribution Width 15.6H, Platelet Count 93L, Mean Platelet Volume 8.7, Neutrophils (%) (Auto) , Lymphocytes (%) (Auto) , Monocytes (%) (Auto) , Eosinophils (%) (Auto) , Basophils (%) (Auto) , Neutrophils % (Manual) [Pending], Lymphocytes % (Manual) [Pending], Platelet Estimate [Pending], Platelet Morphology [Pending], Sodium Level 138, Potassium Level 3.3L, Chloride Level 99, Carbon Dioxide Level 22, Anion Gap 17H, Blood Urea Nitrogen 89H, Creatinine 10.0H, Estimat Glomerular Filtration Rate 6.3, Glucose Level 85, Calcium Level 8.5, Phosphorus Level 6.8H , Magnesium Level 2.3, Total Bilirubin 0.6, Aspartate Amino Transf (AST/SGOT) 29 , Alanine Aminotransferase (ALT/SGPT) 22, Alkaline Phosphatase 98, Total Protein 6.4, Albumin 2.6L, Globulin 3.8, Albumin/Globulin Ratio 0.7L Height (Feet): 5 Height (Inches): 8.00 Weight (Pounds): 212 EENT: other - vented Cardiovascular: normal rate Respiratory/Chest: decreased breath sounds Abdomen: soft Objective no change Mirza Conde MD Jul 24, 2018 10:17
--- NOTE | 2018-07-24 12:31 | Physician Query ---
--------- THIS DOCUMENT IS A PERMANENT PART OF THE MEDICAL RECORD --------- PLEASE COMPLETE DOCUMENT BEFORE SIGNING Dear Dr. Conde Date: 07/24/2018 Truck Dispatcher/CDS Name: Eunice Mena Truck Dispatcher/CDS Phone No.: [phone] Exercise your independent professional judgment when responding to the query. Questions asked do not imply a particular answer is desired or expected. We greatly appreciate your clarification on this issue. CLINICAL DOCUMENTATION STATES: "Now acute respiratory failure, On vent" is documented in progress notes from 07/20/18. 07/24/2018 and 07/23/2018 progress notes documented "Acute resp. failure on presentation - worsened." H&P assessment includes "Metabolic acidosis". CLINICAL FINDINGS SHOW: At the time of admission (07/15/18) : respiratory rate - 26, O2 delivery method- Nasal cannula. O2 delivery method was switched to Venturi mask on 07/19/2018. O2 delivery method was switched to Bi pap on 07/20/2018. Patient was intubated on 2017. Clarification is needed for one (or more) of the following conditions in order to accurately assign the "present on admission' indicator. Please choose the answer that best indicates whether the associated condition was present at the time of the order for inpatient admission. Thank you. DIAGNOSIS: Acute respiratory failure. Was the Acute respiratory failure present on admission? [ +] YES [ ] NO [ ] Clinically Undeterminable Please also document in your Progress Notes and/or Discharge Summary and indicate if the condition was present on admission. Sammy DURAN
--- NOTE | 2018-07-24 14:29 | General Progress Note ---
Assessment/Plan Assessment/Plan # Pancytopenia potentially reactive process versus meds related or related to bone marrow process, hepatitis and hiv both reviewed and are negative, has been acute onset since admission --> stable to improving --> us of the abdomen shows splenomegaly --> at this time, does not need a bone marrow biopsy --> on IV iron and epogen sq --> neupogen sq prn --> wbc count is better, does not require supportive growth factors # Anemia of chronic disease has been evaluated and reviewed, does have evidence of iron deficiency, has been given iron once d/c --> po iron once discharged --> ok for epogen --> on iv iron --> appreciate renal recs --> on HD prn # ESRD as per nephro --> on hd prn, has received while in hospital # + cardiomeghaly with PVC # Health care associated pneumonia --> Pulm consulted, appreciate recs --> Pt now intubated and on vent since 07/20 --> abx as per ID Greatly appreciate consultation! Subjective ROS Limited/Unobtainable: Yes Hematologic/Lymphatic: Reports: no symptoms Allergies: Coded Allergies: No Known Allergies (Verified , 11/24/07) UNABLE TO ASSESS (Unverified , 07/15/18) Subjective getting HD as per nephro, on vent Objective Last 24 Hour Vital Signs Date Time Temp Pulse Resp B/P (MAP) Pulse Ox O2 Delivery O2 Flow Rate FiO2 07/24/18 13:17 65 21 30 07/24/18 12:00 Mechanical Ventilator 30.0 07/24/18 12:00 99.2 67 20 164/49 (87) 99 99.2 07/24/18 11:28 67 20 30 07/24/18 11:22 Mechanical Ventilator 30 07/24/18 11:00 65 20 139/42 (74) 99 07/24/18 10:02 59 20 30 07/24/18 10:00 58 20 145/44 (77) 99 07/24/18 09:23 Mechanical Ventilator 30 07/24/18 09:00 58 20 152/42 (78) 99 07/24/18 08:25 159/41 07/24/18 08:24 58 159/41 07/24/18 08:00 100.3 57 20 159/41 (80) 99 100.3 07/24/18 08:00 30 07/24/18 08:00 Mechanical Ventilator 30.0 07/24/18 08:00 59 07/24/18 07:59 58 20 30 07/24/18 07:00 58 20 158/47 (84) 97 07/24/18 06:00 69 20 131/52 (78) 100 07/24/18 05:00 68 18 154/52 (86) 100 07/24/18 05:00 64 20 30 07/24/18 04:00 Mechanical Ventilator 30.0 07/24/18 04:00 98.6 64 20 154/84 (107) 100 98.6 07/24/18 04:00 66 07/24/18 04:00 30 07/24/18 03:00 66 25 30 07/24/18 03:00 62 20 150/84 (106) 100 07/24/18 02:00 67 20 150/31 (70) 100 07/24/18 01:06 72 20 30 07/24/18 01:00 70 22 116/28 (57) 100 07/24/18 00:00 98.6 68 19 155/52 (86) 100 98.6 07/24/18 00:00 64 07/24/18 00:00 30 07/24/18 00:00 Mechanical Ventilator 30.0 07/23/18 23:05 75 20 30 07/23/18 23:00 68 22 148/48 (81) 100 07/23/18 22:00 69 20 148/48 (81) 98 07/23/18 21:25 79 20 30 07/23/18 21:18 70 154/47 07/23/18 21:00 70 18 131/41 (71) 100 07/23/18 20:00 99.5 66 19 159/47 (84) 99 99.5 07/23/18 20:00 30 07/23/18 20:00 Mechanical Ventilator 30.0 07/23/18 20:00 66 07/23/18 19:10 72 21 30 07/23/18 19:00 69 20 135/40 (71) 100 07/23/18 18:00 62 20 148/42 (77) 100 07/23/18 17:00 67 20 146/43 (77) 100 07/23/18 16:55 67 20 30 07/23/18 16:00 63 9/28/18 16:00 Mechanical Ventilator 30.0 07/23/18 16:00 30 07/23/18 16:00 97.6 63 20 120/38 (65) 99 97.6 07/23/18 15:04 67 20 30 07/23/18 15:00 68 20 121/39 (66) 98 Intake and Output 07/23/18 07/24/18 19:00 07:00 Intake Total 565 ml 590 ml Output Total 255 ml 410 ml Balance 310 ml 180 ml Free Water 30 ml IV Total 55 ml 110 ml Tube Feeding 480 ml 480 ml Output Urine Total 255 ml 410 ml # Bowel Movements 1 Laboratory Tests 07/24/18 04:00: Arterial Blood pH 7.540H, Arterial Blood Partial Pressure CO2 32.1L, Arterial Blood Partial Pressure O2 75.4, Arterial Blood HCO3 26.8H, Arterial Blood Oxygen Saturation 94.8L, Arterial Blood Base Excess 4.2H, Calvin Test Positive 07/24/18 06:20: White Blood Count 8.0, Red Blood Count 2.87L, Hemoglobin 8.8L, Hematocrit 27.0L , Mean Corpuscular Volume 94, Mean Corpuscular Hemoglobin 30.7, Mean Corpuscular Hemoglobin Concent 32.7, Red Cell Distribution Width 15.6H, Platelet Count 93L, Mean Platelet Volume 8.7, Neutrophils (%) (Auto) , Lymphocytes (%) (Auto) , Monocytes (%) (Auto) , Eosinophils (%) (Auto) , Basophils (%) (Auto) , Differential Total Cells Counted 100, Neutrophils % ( Manual) 72, Lymphocytes % (Manual) 14L, Monocytes % (Manual) 12H, Eosinophils % (Manual) 2, Basophils % (Manual) 0, Band Neutrophils 0, Nucleated Red Blood Cells , Platelet Estimate DecreasedL, Platelet Morphology See comment, Sodium Level 138, Potassium Level 3.3L, Chloride Level 99, Carbon Dioxide Level 22, Anion Gap 17H, Blood Urea Nitrogen 89H, Creatinine 10.0H, Estimat Glomerular Filtration Rate 6.3, Glucose Level 85, Calcium Level 8.5, Phosphorus Level 6.8H , Magnesium Level 2.3, Total Bilirubin 0.6, Aspartate Amino Transf (AST/SGOT) 29 , Alanine Aminotransferase (ALT/SGPT) 22, Alkaline Phosphatase 98, Total Protein 6.4, Albumin 2.6L, Globulin 3.8, Albumin/Globulin Ratio 0.7L Height (Feet): 5 Height (Inches): 8.00 Weight (Pounds): 212 General Appearance: lethargic EENT: normal ENT inspection Neck: normal inspection Cardiovascular: regular rhythm Respiratory/Chest: normal breath sounds Abdomen: non tender - vent Extremities: normal inspection Edema: 1+ Leg (L), 1+ Leg (R) Neurologic: aphasia Skin: warm/dry Virgil Ward MD Jul 24, 2018 14:29
--- NOTE | 2018-07-24 15:05 | Cardiology Progress Note ---
Assessment/Plan Status: stable Assessment/Plan Assessment: 1) ESRD (end stage renal disease) on dialysis (2) Anemia in chronic kidney disease (CKD) (3) Hypertensive kidney disease (4) Encephalopathy (5) DM (6) Hyperlipemia Plan: Maintain hemodialysis Echocardiogram --> preserved systolic function, mild valvular regurgitation, mild pulmonary hypertension, elevated filling pressures Stress text next week to evaluate chest pain given multiple cardiac risk factors and NSVT - currently unstable to proceed Aspirin Statin Serial EKG/Troponin No indication for troponin at this time. No indication for urgent cardiac cath LE ultrasound PRBC transfusion Maintain hemodialysis Vent care Tube feeds Poor prognosis Subjective Cardiovascular: Reports: no symptoms Respiratory: Reports: no symptoms Gastrointestinal/Abdominal: Reports: no symptoms Genitourinary: Reports: no symptoms Subjective Pt has been placed on SIMV 20 600 30% +0 with PS 8 at 1313. Pt not breathing appropriate volumes. Pt has been sleeping almost all day Objective Last 24 Hour Vital Signs Date Time Temp Pulse Resp B/P (MAP) Pulse Ox O2 Delivery O2 Flow Rate FiO2 07/24/18 14:46 62 20 30 07/24/18 13:17 65 21 30 07/24/18 12:00 Mechanical Ventilator 30.0 07/24/18 12:00 99.2 67 20 164/49 (87) 99 99.2 07/24/18 11:28 67 20 30 07/24/18 11:22 Mechanical Ventilator 30 07/24/18 11:00 65 20 139/42 (74) 99 07/24/18 10:02 59 20 30 07/24/18 10:00 58 20 145/44 (77) 99 07/24/18 09:23 Mechanical Ventilator 30 07/24/18 09:00 58 20 152/42 (78) 99 07/24/18 08:25 159/41 07/24/18 08:24 58 159/41 07/24/18 08:00 100.3 57 20 159/41 (80) 99 100.3 07/24/18 08:00 30 07/24/18 08:00 Mechanical Ventilator 30.0 07/24/18 08:00 59 07/24/18 07:59 58 20 30 07/24/18 07:00 58 20 158/47 (84) 97 07/24/18 06:00 69 20 131/52 (78) 100 9/29/18 05:00 68 18 154/52 (86) 100 07/24/18 05:00 64 20 30 07/24/18 04:00 Mechanical Ventilator 30.0 07/24/18 04:00 98.6 64 20 154/84 (107) 100 98.6 07/24/18 04:00 66 07/24/18 04:00 30 07/24/18 03:00 66 25 30 07/24/18 03:00 62 20 150/84 (106) 100 07/24/18 02:00 67 20 150/31 (70) 100 07/24/18 01:06 72 20 30 07/24/18 01:00 70 22 116/28 (57) 100 07/24/18 00:00 98.6 68 19 155/52 (86) 100 98.6 07/24/18 00:00 64 07/24/18 00:00 30 07/24/18 00:00 Mechanical Ventilator 30.0 07/23/18 23:05 75 20 30 07/23/18 23:00 68 22 148/48 (81) 100 07/23/18 22:00 69 20 148/48 (81) 98 07/23/18 21:25 79 20 30 07/23/18 21:18 70 154/47 07/23/18 21:00 70 18 131/41 (71) 100 07/23/18 20:00 99.5 66 19 159/47 (84) 99 99.5 07/23/18 20:00 30 07/23/18 20:00 Mechanical Ventilator 30.0 07/23/18 20:00 66 07/23/18 19:10 72 21 30 07/23/18 19:00 69 20 135/40 (71) 100 07/23/18 18:00 62 20 148/42 (77) 100 07/23/18 17:00 67 20 146/43 (77) 100 07/23/18 16:55 67 20 30 07/23/18 16:00 63 07/23/18 16:00 Mechanical Ventilator 30.0 07/23/18 16:00 30 07/23/18 16:00 97.6 63 20 120/38 (65) 99 97.6 General Appearance: no apparent distress, lethargic, on vent EENT: PERRL/EOMI, normal ENT inspection, TMs normal, pharynx normal Neck: non-tender, normal alignment, supple, normal inspection Rhythm: NSR Cardiovascular: normal peripheral pulses, normal rate, regular rhythm Respiratory/Chest: accessory muscle use, crackles/rales, rhonchi - bilaterally Abdomen: normal bowel sounds, non tender, soft, no organomegaly Extremities: normal range of motion, non-tender, normal inspection 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, abnormal CN, motor weakness, sensory deficit, disoriented Intake and Output 07/23/18 07/24/18 19:00 07:00 Intake Total 565 ml 590 ml Output Total 255 ml 410 ml Balance 310 ml 180 ml Free Water 30 ml IV Total 55 ml 110 ml Tube Feeding 480 ml 480 ml Output Urine Total 255 ml 410 ml # Bowel Movements 1 Laboratory Tests Test 07/24/18 04:00 07/24/18 06:20 Arterial Blood pH 7.540 (7.350-7.450) Arterial Blood Partial Pressure CO2 32.1 mmHg (35.0-45.0) L Arterial Blood Partial Pressure O2 75.4 mmHg (75.0-100.0) Arterial Blood HCO3 26.8 mmol/L (22.0-26.0) H Arterial Blood Oxygen Saturation 94.8 % (95-100) L Arterial Blood Base Excess 4.2 (-2-2) H Calvin Test Positive White Blood Count 8.0 K/UL (4.8-10.8) Red Blood Count 2.87 M/UL (4.70-6.10) L Hemoglobin 8.8 G/DL (14.2-18.0) L Hematocrit 27.0 % (42.0-52.0) L Mean Corpuscular Volume 94 FL (80-99) Mean Corpuscular Hemoglobin 30.7 PG (27.0-31.0) Mean Corpuscular Hemoglobin Concent 32.7 G/DL (32.0-36.0) Red Cell Distribution Width 15.6 % (11.6-14.8) H Platelet Count 93 K/UL (150-450) L Mean Platelet Volume 8.7 FL (6.5-10.1) Neutrophils (%) (Auto) % (45.0-75.0) Lymphocytes (%) (Auto) % (20.0-45.0) Monocytes (%) (Auto) % (1.0-10.0) Eosinophils (%) (Auto) % (0.0-3.0) Basophils (%) (Auto) % (0.0-2.0) Differential Total Cells Counted 100 Neutrophils % (Manual) 72 % (45-75) Lymphocytes % (Manual) 14 % (20-45) L Monocytes % (Manual) 12 % (1-10) H Eosinophils % (Manual) 2 % (0-3) Basophils % (Manual) 0 % (0-2) Band Neutrophils 0 % (0-8) Nucleated Red Blood Cells /100 WBC Platelet Estimate Decreased L Platelet Morphology See comment Sodium Level 138 MMOL/L (136-145) Potassium Level 3.3 MMOL/L (3.5-5.1) L Chloride Level 99 MMOL/L (98-107) Carbon Dioxide Level 22 MMOL/L (21-32) Anion Gap 17 mmol/L (5-15) H Blood Urea Nitrogen 89 mg/dL (7-18) H Creatinine 10.0 MG/DL (0.55-1.30) H Estimat Glomerular Filtration Rate 6.3 mL/min (>60) Glucose Level 85 MG/DL (74-106) Calcium Level 8.5 MG/DL (8.5-10.1) Phosphorus Level 6.8 MG/DL (2.5-4.9) H Magnesium Level 2.3 MG/DL (1.8-2.4) Total Bilirubin 0.6 MG/DL (0.2-1.0) Aspartate Amino Transf (AST/SGOT) 29 U/L (15-37) Alanine Aminotransferase (ALT/SGPT) 22 U/L (12-78) Alkaline Phosphatase 98 U/L (46-116) Total Protein 6.4 G/DL (6.4-8.2) Albumin 2.6 G/DL (3.4-5.0) L Globulin 3.8 g/dL Albumin/Globulin Ratio 0.7 (1.0-2.7) L Microbiology Date/Time Source Procedure Growth Status 07/23/18 10:50 Urine,Clean Catch Urine Culture - Preliminary Resulted Yimi Luevano MD Jul 24, 2018 15:05
--- NOTE | 2018-07-24 19:58 | General Progress Note ---
Assessment/Plan Assessment/Plan Acute hypercapnic respiratory failure - possibly 2/2 aspiration pneumonia vs HCAP, continue with vent support per Pulm. Continue empiric antibiotics Severe sepsis due to suspected gram negative pneumonia, continue current antibiotics, ID following ESRD on HD, continue HD per Nephrology Metabolic acidosis, resolved Acute on chronic diastolic heart failure, fluid management with HD. Cards following NSTEMI type 2, continue ASA, stress test held for now per Cardiology Acute metabolic encephalopathy superimposed on dementia and psychosis, currently intubated, psychiatry following Hypertensive heart and renal disease, continue metoprolol Pancytopenia likely due to BM suppression, Hematology following Diet, continue tube feeds DVT ppx: HSQ, SCDs Subjective Date patient seen: Jul 24, 2018 Time patient seen: 13:30 ROS Limited/Unobtainable: Yes - Unable to obtain ROS as patient is intubated Allergies: Coded Allergies: No Known Allergies (Verified , 11/24/07) UNABLE TO ASSESS (Unverified , 07/15/18) Subjective Medicine followup for multiple medical problems including: Acute hypercapnic respiratory failure due to suspected gram negative pneumonia, acute metabolic encephalopathy, acute on chronic diastolic CHF. He remains intubated in ICU, underwent HD today with 2.5 L removed. No SBT today per Pulm. Objective Last 24 Hour Vital Signs Date Time Temp Pulse Resp B/P (MAP) Pulse Ox O2 Delivery O2 Flow Rate FiO2 07/24/18 19:01 59 20 30 07/24/18 19:00 63 20 161/48 (85) 100 07/24/18 18:00 69 20 144/47 (79) 100 07/24/18 17:29 61 20 30 07/24/18 17:00 69 20 141/41 (74) 99 07/24/18 16:00 65 07/24/18 16:00 30 07/24/18 16:00 99.8 65 20 121/45 (70) 99 99.8 07/24/18 16:00 Mechanical Ventilator 30.0 07/24/18 15:00 64 20 124/39 (67) 99 07/24/18 14:46 62 20 30 07/24/18 14:00 65 20 139/42 (74) 99 07/24/18 13:17 65 21 30 07/24/18 13:00 67 20 152/47 (82) 99 07/24/18 12:00 81 07/24/18 12:00 Mechanical Ventilator 30.0 07/24/18 12:00 99.2 67 20 164/49 (87) 99 99.2 07/24/18 11:28 67 20 30 07/24/18 11:22 Mechanical Ventilator 30 07/24/18 11:00 65 20 139/42 (74) 99 07/24/18 10:02 59 20 30 07/24/18 10:00 58 20 145/44 (77) 99 07/24/18 09:23 Mechanical Ventilator 30 07/24/18 09:00 58 20 152/42 (78) 99 07/24/18 08:25 159/41 07/24/18 08:24 58 159/41 07/24/18 08:00 100.3 57 20 159/41 (80) 99 100.3 07/24/18 08:00 30 07/24/18 08:00 Mechanical Ventilator 30.0 07/24/18 08:00 59 07/24/18 07:59 58 20 30 07/24/18 07:00 58 20 158/47 (84) 97 07/24/18 06:00 69 20 131/52 (78) 100 07/24/18 05:00 68 18 154/52 (86) 100 07/24/18 05:00 64 20 30 07/24/18 04:00 Mechanical Ventilator 30.0 07/24/18 04:00 98.6 64 20 154/84 (107) 100 98.6 07/24/18 04:00 66 07/24/18 04:00 30 07/24/18 03:00 66 25 30 07/24/18 03:00 62 20 150/84 (106) 100 07/24/18 02:00 67 20 150/31 (70) 100 07/24/18 01:06 72 20 30 07/24/18 01:00 70 22 116/28 (57) 100 07/24/18 00:00 98.6 68 19 155/52 (86) 100 98.6 07/24/18 00:00 64 07/24/18 00:00 30 07/24/18 00:00 Mechanical Ventilator 30.0 07/23/18 23:05 75 20 30 07/23/18 23:00 68 22 148/48 (81) 100 07/23/18 22:00 69 20 148/48 (81) 98 9/28/18 21:25 79 20 30 07/23/18 21:18 70 154/47 07/23/18 21:00 70 18 131/41 (71) 100 07/23/18 20:00 99.5 66 19 159/47 (84) 99 99.5 07/23/18 20:00 30 07/23/18 20:00 Mechanical Ventilator 30.0 07/23/18 20:00 66 Intake and Output 07/23/18 07/24/18 19:00 07:00 Intake Total 565 ml 590 ml Output Total 255 ml 410 ml Balance 310 ml 180 ml Free Water 30 ml IV Total 55 ml 110 ml Tube Feeding 480 ml 480 ml Output Urine Total 255 ml 410 ml # Bowel Movements 1 Laboratory Tests 07/24/18 04:00: Arterial Blood pH 7.540H, Arterial Blood Partial Pressure CO2 32.1L, Arterial Blood Partial Pressure O2 75.4, Arterial Blood HCO3 26.8H, Arterial Blood Oxygen Saturation 94.8L, Arterial Blood Base Excess 4.2H, Calvin Test Positive 07/24/18 06:20: White Blood Count 8.0, Red Blood Count 2.87L, Hemoglobin 8.8L, Hematocrit 27.0L , Mean Corpuscular Volume 94, Mean Corpuscular Hemoglobin 30.7, Mean Corpuscular Hemoglobin Concent 32.7, Red Cell Distribution Width 15.6H, Platelet Count 93L, Mean Platelet Volume 8.7, Neutrophils (%) (Auto) , Lymphocytes (%) (Auto) , Monocytes (%) (Auto) , Eosinophils (%) (Auto) , Basophils (%) (Auto) , Differential Total Cells Counted 100, Neutrophils % ( Manual) 72, Lymphocytes % (Manual) 14L, Monocytes % (Manual) 12H, Eosinophils % (Manual) 2, Basophils % (Manual) 0, Band Neutrophils 0, Nucleated Red Blood Cells , Platelet Estimate DecreasedL, Platelet Morphology See comment, Sodium Level 138, Potassium Level 3.3L, Chloride Level 99, Carbon Dioxide Level 22, Anion Gap 17H, Blood Urea Nitrogen 89H, Creatinine 10.0H, Estimat Glomerular Filtration Rate 6.3, Glucose Level 85, Calcium Level 8.5, Phosphorus Level 6.8H , Magnesium Level 2.3, Total Bilirubin 0.6, Aspartate Amino Transf (AST/SGOT) 29 , Alanine Aminotransferase (ALT/SGPT) 22, Alkaline Phosphatase 98, Total Protein 6.4, Albumin 2.6L, Globulin 3.8, Albumin/Globulin Ratio 0.7L Height (Feet): 5 Height (Inches): 8.00 Weight (Pounds): 212 General Appearance: lethargic Neck: normal inspection Cardiovascular: normal rate, regular rhythm Respiratory/Chest: lungs clear, no respiratory distress Abdomen: soft, no mass Adam Jones MD Jul 24, 2018 19:58
[2018-07-25] VITALS (24 sets, daily range): BP systolic 107–181; BP diastolic 37–92
[2018-07-25] MEDS: NovoLOG Insulin Flexpen SUBQ SCH ×5 (00:22→23:43)
[2018-07-25] MEDS: Zosyn 2.25 gm in D5W 55ml IV SCH ×2 (03:46→11:41)
[2018-07-25 05:41] LABS: HEMATOCRIT 26.4 % (42.0-52.0); HEMOGLOBIN 8.5 G/DL (14.2-18.0); MEAN CORPUSCULAR VOLUME 95 FL (80-99); PLATELET COUNT 91 K/UL (150-450); RED BLOOD COUNT 2.77 M/UL (4.70-6.10); RED CELL DISTRIBUTION WIDTH 15.8 % (11.6-14.8); WHITE BLOOD COUNT 4.6 K/UL (4.8-10.8)
[2018-07-25 05:43] LABS: ANION GAP 6 mmol/L (5-15); BLOOD UREA NITROGEN 54 mg/dL (7-18); CALCIUM 8.8 MG/DL (8.5-10.1); CARBON DIOXIDE 32 MMOL/L (21-32); CHLORIDE 99 MMOL/L (98-107); POTASSIUM 3.5 MMOL/L (3.5-5.1); SODIUM 137 MMOL/L (136-145)
[2018-07-25] MEDS ORDERED: Vancomycin 1.5 GM/D5W 250ML IVPB ONE (08:00)
--- NOTE | 2018-07-25 08:11 | Pulmonolgy Critical Care Note ---
Critical Care - Asmt/Plan Assessment/Plan: ASSESSMENT acute hypercapnic respiratory failure, requiring intubation sepsis MRSA pneumonia, probably aspiration acute metabolic encephalopathy hypertensive heart and kidney disease end-stage renal disease, on hemodialysis elevated troponin acute on chronic diastolic heart failure hyperlipidemia diabetes mellitus COPD/asthma pulmonary hypertension anemia of chronic kidney disease dementia with psychosis pancytopenia PLAN OF CARE ICU status vent support ; pulm toilet daily CXR and ABG , decrease AC to 18 wean protocol as tolerated ECHO with pEF 55-60% and RVSP of 43, c/w mild pulm HTN likely due to underlying COPD CT chest noted strict aspiration precautions, NGT feeding elevated troponin , trended, possibly leaking due to ESRD, possible NSTEMI- per cardio recs cardio follows on a/PLT therapy with ASA, beta yulissa and Nitro prn lipid panel stable not stable for stress test to proceed ( need it due to multiple cardiac risk factors, NSVT) no indication for urgent cardiac cath -as per cardio off Heparin SQ due to low PLT Venous Duplex BLE negative , on SCD abx, ID follows sputum cx + MRSA, blood cx negative HD as per debarker operator; monitor volumes and cardiorenal parameters. monitor H&H , s/p total of 3 u PRBC on EPO and Venofer heme follows HIV and hepatitis screen negative, monitor counts BS management with SSI GI prophylaxis bowel regimen pain management prn psych follows per psych pt lacks capacity to make decision, Seroquel prn as per psych case discussed and evaluated by supervising physician Critical Care - Objective Last 24 Hour Vital Signs Date Time Temp Pulse Resp B/P (MAP) Pulse Ox O2 Delivery O2 Flow Rate FiO2 07/25/18 07:15 53 20 30 07/25/18 06:00 55 11 135/44 (74) 100 07/25/18 05:00 55 18 131/38 (69) 100 07/25/18 04:56 64 20 30 07/25/18 04:00 98.2 61 18 137/41 (73) 100 98.2 07/25/18 04:00 Mechanical Ventilator 30.0 07/25/18 04:00 30 07/25/18 04:00 60 07/25/18 03:48 172/21 07/25/18 03:00 57 20 30 07/25/18 03:00 59 18 181/51 (94) 100 07/25/18 02:00 61 18 161/51 (87) 100 07/25/18 01:03 60 20 30 07/25/18 01:00 64 20 158/46 (83) 100 07/25/18 00:00 56 07/25/18 00:00 30 07/25/18 00:00 Mechanical Ventilator 30.0 07/25/18 00:00 98.6 64 17 150/48 (82) 100 98.6 07/24/18 23:00 64 18 156/58 (90) 100 07/24/18 22:59 64 20 30 07/24/18 22:00 60 20 161/51 (87) 100 07/24/18 21:00 64 20 161/51 (87) 100 07/24/18 20:52 71 164/68 07/24/18 20:48 68 20 30 07/24/18 20:00 99.5 65 19 164/48 (86) 100 99.5 07/24/18 20:00 Mechanical Ventilator 30.0 07/24/18 20:00 65 07/24/18 20:00 30 07/24/18 19:01 59 20 30 07/24/18 19:00 63 20 161/48 (85) 100 07/24/18 18:00 69 20 144/47 (79) 100 07/24/18 17:29 61 20 30 07/24/18 17:00 69 20 141/41 (74) 99 07/24/18 16:00 65 07/24/18 16:00 30 07/24/18 16:00 99.8 65 20 121/45 (70) 99 99.8 07/24/18 16:00 Mechanical Ventilator 30.0 07/24/18 15:00 64 20 124/39 (67) 99 07/24/18 14:46 62 20 30 07/24/18 14:00 65 20 139/42 (74) 99 07/24/18 13:17 65 21 30 07/24/18 13:00 67 20 152/47 (82) 99 07/24/18 12:00 81 07/24/18 12:00 Mechanical Ventilator 30.0 07/24/18 12:00 99.2 67 20 164/49 (87) 99 99.2 07/24/18 11:28 67 20 30 07/24/18 11:22 Mechanical Ventilator 30 07/24/18 11:00 65 20 139/42 (74) 99 07/24/18 10:02 59 20 30 07/24/18 10:00 58 20 145/44 (77) 99 07/24/18 09:23 Mechanical Ventilator 30 07/24/18 09:00 58 20 152/42 (78) 99 07/24/18 08:25 159/41 07/24/18 08:24 58 159/41 Objective: Condition: critical, awake HEENT: atraumatic, normocephalic, OP with ET in place, intact, NGT with TF Neck: R subclavian HD catheter intact Lungs: clear BS Heart: HR/BP stable Abdomen: soft, non-tender, active bowel sounds Extremities: + 1 edema BLE Micro: Microbiology Date/Time Source Procedure Growth Status 07/23/18 10:50 Urine,Clean Catch Urine Culture - Preliminary Resulted Accucheck: 140 Critical Care - Subjective ROS Limited/Unobtainable: Yes Interval Events: afebrile, no leukocytosis no signs of resp distress on current settings had HD yesterday, 07/24 Condition: critical IV Access: peripheral - L hand FI02: 30 Vent Support Breath Rate: 20 Vent Support Mode: AC Vent Tidal Volume: 600 Sputum Amount: Scant PEEP: 0.0 PIP: 40 Tube Feeding Amount: 40 I&O: Intake and Output 07/24/18 07/25/18 19:00 07:00 Intake Total 535 ml 795 ml Output Total 2500 ml 200 ml Balance -1965 ml 595 ml Free Water 150 ml IV Total 55 ml 165 ml Tube Feeding 480 ml 480 ml Output Urine Total 0 ml 200 ml Hemodialysis UF 2500 ml CXR: 07/24- 1. Interval mild improvement of aeration in bilateral lung bases, with mild residual bibasilar opacities, which may represent subsegmental atelectasis versus infiltrates. 2. Subtle blunting of the left costophrenic angle persists, which may represent a small effusion versus pleural thickening. 3. Persistently increased interstitial markings. This may be related to mild pulmonary vascular congestion and underlying pneumonitis. ET-Tube: 7.5 ET Position: 22 Fernanda Chacon NP Jul 25, 2018 08:11
[2018-07-25] MEDS: Aspirin Baby 81mg NG SCH (08:35)
[2018-07-25] MEDS: Renvela 800mg Pkt ORAL SCH ×3 (08:35→18:04)
[2018-07-25] MEDS: Pantoprazole Inj IV SCH ×2 (08:35→20:38)
[2018-07-25] MEDS: Metoprolol Tartrate 12.5mg TAB NG SCH (08:36)
[2018-07-25] MEDS: Nitroglycerin Patch 0.4mg TDERMAL SCH (08:36)
--- NOTE | 2018-07-25 08:48 | Diagnostic Imaging Report ---
EXAM: XR Chest, 1 View CLINICAL HISTORY: Shortness of breath TECHNIQUE: Frontal view of the chest. COMPARISON: Chest x-ray dated 07/24/18 FINDINGS: Lungs: Persistent patchy bibasilar opacities, more prominent in the left lower lung/retrocardiac region, which may represents subsegmental atelectasis versus infiltrate. No significant change in the prominent interstitial markings. Pleural space: Persistent small left pleural effusion. Heart: Unremarkable. No cardiomegaly. Mediastinum: Unremarkable. Bones/joints: Status post sternotomy with intact appearance of sternal wires. Tubes, lines and devices: Stable positioning of the right-sided dialysis catheter, the endotracheal tube, and the NG tube. EKG leads overlie the thorax. IMPRESSION: 1. Persistent patchy bibasilar opacities, most prominent in the left lower lung/retrocardiac region, which may represent subsegmental atelectasis versus infiltrate. 2. No significant change in the prominent interstitial markings. This may be related to mild pulmonary vascular congestion versus interstitial pneumonitis. 3. Persistent small left pleural effusion.
--- NOTE | 2018-07-25 10:26 | Nephrology Progress Note ---
Assessment/Plan Problem List: (1) Acute respiratory failure Assessment: on presentation- worsened (2) ESRD (end stage renal disease) on dialysis (3) Hyperkalemia (4) CHF (congestive heart failure) (5) Anemia in chronic kidney disease (CKD) Assessment ESRD has permacath hyperkalemia Shortness of breath, CHF NOW ACUTE RESPIRATORY FAILURE , ON VENT Encephalopathy condition: 1) ESRD (end stage renal disease) on dialysis (2) Anemia in chronic kidney disease (CKD) (3) Hypertensive kidney disease (4) Encephalopathy (5) DM (6) Hyperlipemia Plan Vent support Dialysis 07/26 DC Lopressor change to 4K optimize cardiac status 2 D echo noted adjust BP meds Anemia work up : ? transfusion if needed adjust BS meds phos binders asa nitrate per orders Subjective ROS Limited/Unobtainable: Yes Objective Objective Last 24 Hour Vital Signs Date Time Temp Pulse Resp B/P (MAP) Pulse Ox O2 Delivery O2 Flow Rate FiO2 07/25/18 10:00 54 16 129/42 (71) 97 07/25/18 09:30 100 07/25/18 09:05 54 20 30 07/25/18 09:00 55 19 159/51 (87) 100 07/25/18 08:36 119/38 07/25/18 08:36 56 119/38 07/25/18 08:00 98.7 52 16 119/38 (65) 100 98.7 07/25/18 08:00 30 07/25/18 07:15 53 20 30 07/25/18 07:00 57 16 135/42 (73) 100 07/25/18 06:00 55 11 135/44 (74) 100 07/25/18 05:00 55 18 131/38 (69) 100 07/25/18 04:56 64 20 30 07/25/18 04:00 98.2 61 18 137/41 (73) 100 98.2 07/25/18 04:00 Mechanical Ventilator 30.0 07/25/18 04:00 30 07/25/18 04:00 60 07/25/18 03:48 172/21 07/25/18 03:00 57 20 30 07/25/18 03:00 59 18 181/51 (94) 100 07/25/18 02:00 61 18 161/51 (87) 100 07/25/18 01:03 60 20 30 9/30/18 01:00 64 20 158/46 (83) 100 07/25/18 00:00 56 07/25/18 00:00 30 07/25/18 00:00 Mechanical Ventilator 30.0 07/25/18 00:00 98.6 64 17 150/48 (82) 100 98.6 07/24/18 23:00 64 18 156/58 (90) 100 07/24/18 22:59 64 20 30 07/24/18 22:00 60 20 161/51 (87) 100 07/24/18 21:00 64 20 161/51 (87) 100 07/24/18 20:52 71 164/68 07/24/18 20:48 68 20 30 07/24/18 20:00 99.5 65 19 164/48 (86) 100 99.5 07/24/18 20:00 Mechanical Ventilator 30.0 07/24/18 20:00 65 07/24/18 20:00 30 07/24/18 19:01 59 20 30 07/24/18 19:00 63 20 161/48 (85) 100 07/24/18 18:00 69 20 144/47 (79) 100 07/24/18 17:29 61 20 30 07/24/18 17:00 69 20 141/41 (74) 99 07/24/18 16:00 65 07/24/18 16:00 30 07/24/18 16:00 99.8 65 20 121/45 (70) 99 99.8 07/24/18 16:00 Mechanical Ventilator 30.0 07/24/18 15:00 64 20 124/39 (67) 99 07/24/18 14:46 62 20 30 07/24/18 14:00 65 20 139/42 (74) 99 07/24/18 13:17 65 21 30 07/24/18 13:00 67 20 152/47 (82) 99 07/24/18 12:00 81 07/24/18 12:00 Mechanical Ventilator 30.0 07/24/18 12:00 99.2 67 20 164/49 (87) 99 99.2 07/24/18 11:28 67 20 30 07/24/18 11:22 Mechanical Ventilator 30 07/24/18 11:00 65 20 139/42 (74) 99 Intake and Output 07/24/18 07/25/18 19:00 07:00 Intake Total 535 ml 795 ml Output Total 2500 ml 200 ml Balance -1965 ml 595 ml Free Water 150 ml IV Total 55 ml 165 ml Tube Feeding 480 ml 480 ml Output Urine Total 0 ml 200 ml Hemodialysis UF 2500 ml Laboratory Tests 07/25/18 05:00: White Blood Count 4.6L, Red Blood Count 2.77L, Hemoglobin 8.5L, Hematocrit 26.4L , Mean Corpuscular Volume 95, Mean Corpuscular Hemoglobin 30.6, Mean Corpuscular Hemoglobin Concent 32.2, Red Cell Distribution Width 15.8H, Platelet Count 91L, Mean Platelet Volume 8.0, Neutrophils (%) (Auto) , Lymphocytes (%) (Auto) , Monocytes (%) (Auto) , Eosinophils (%) (Auto) , Basophils (%) (Auto) , Differential Total Cells Counted 100, Neutrophils % ( Manual) 75, Lymphocytes % (Manual) 16L, Monocytes % (Manual) 7, Eosinophils % ( Manual) 2, Basophils % (Manual) 0, Band Neutrophils 0, Platelet Estimate DecreasedL, Platelet Morphology Normal, Hypochromasia 1+, Anisocytosis 1+, Sodium Level 137, Potassium Level 3.5, Chloride Level 99, Carbon Dioxide Level 32, Anion Gap 6, Blood Urea Nitrogen 54H, Creatinine 7.0H, Estimat Glomerular Filtration Rate 9.6, Glucose Level 140H, Calcium Level 8.8, Random Vancomycin Level 17.7 07/25/18 09:09: Arterial Blood pH 7.550*H, Arterial Blood Partial Pressure CO2 33.4L, Arterial Blood Partial Pressure O2 85.1, Arterial Blood HCO3 28.8H, Arterial Blood Oxygen Saturation 96.3, Arterial Blood Base Excess 6.2H, Calvin Test Positive Height (Feet): 5 Height (Inches): 8.00 Weight (Pounds): 212 General Appearance: no apparent distress Cardiovascular: bradycardia Respiratory/Chest: decreased breath sounds Abdomen: soft Objective no change Mirza Conde MD Jul 25, 2018 10:26
--- NOTE | 2018-07-25 14:56 | General Progress Note ---
Assessment/Plan Assessment/Plan # Pancytopenia potentially reactive process versus meds related or related to bone marrow process, hepatitis and hiv both reviewed and are negative, has been acute onset since admission --> stable to improving --> us of the abdomen shows splenomegaly --> at this time, does not need a bone marrow biopsy --> on IV iron and epogen sq --> neupogen sq prn --> wbc count is better, does not require supportive growth factors # Anemia of chronic disease has been evaluated and reviewed, does have evidence of iron deficiency, has been given iron once d/c --> po iron once discharged --> ok for epogen --> on iv iron --> appreciate renal recs --> on HD prn # ESRD as per nephro --> on hd prn, has received while in hospital # + cardiomeghaly with PVC # Health care associated pneumonia --> Pulm consulted, appreciate recs --> Pt now intubated and on vent since 07/20 --> abx as per ID Greatly appreciate consultation! Subjective Constitutional: Denies: no symptoms, chills, diaphoresis, fever, malaise, weakness, other HEENT: Denies: no symptoms, eye pain, blurred vision, tearing, double vision, ear pain, ear discharge, nose pain, nose congestion, throat pain, throat swelling, mouth pain, mouth swelling, other Cardiovascular: Denies: no symptoms, chest pain, edema, irregular heart rate, lightheadedness, palpitations, syncope, other Respiratory: Denies: no symptoms, cough, orthopnea, shortness of breath, SOB with excertion, SOB at rest, sputum, stridor, wheezing, other Gastrointestinal/Abdominal: Denies: no symptoms, abdomen distended, abdominal pain, black stools, tarry stools, blood in stool, constipated, diarrhea, difficulty swallowing, nausea, poor appetite, poor fluid intake, rectal bleeding , vomiting, other Genitourinary: Denies: no symptoms, burning, discharge, frequency, flank pain, hematuria, incontinence, pain, urgency, other Neurologic/Psychiatric: Denies: no symptoms, anxiety, depressed, emotional problems, headache, numbness, paresthesia, pre-existing deficit, seizure, tingling, tremors, weakness, other Endocrine: Denies: no symptoms, excessive sweating, flushing, intolerance to cold, intolerance to heat, increased hunger, increased thirst, increased urine, unexplained weight gain, unexplained weight loss, other Hematologic/Lymphatic: Denies: no symptoms, anemia, easy bleeding, easy bruising, other Allergies: Coded Allergies: No Known Allergies (Verified , 11/24/07) UNABLE TO ASSESS (Unverified , 07/15/18) Subjective getting HD as per nephro, on vent, remains critically ill in the icu Objective Last 24 Hour Vital Signs Date Time Temp Pulse Resp B/P (MAP) Pulse Ox O2 Delivery O2 Flow Rate FiO2 07/25/18 13:14 59 16 30 07/25/18 12:00 97.7 55 16 111/50 (70) 100 97.7 07/25/18 12:00 30 07/25/18 12:00 53 07/25/18 12:00 Mechanical Ventilator 07/25/18 11:08 55 16 30 07/25/18 11:00 59 14 151/52 (85) 100 07/25/18 10:00 54 16 129/42 (71) 97 07/25/18 09:30 100 07/25/18 09:05 54 20 30 07/25/18 09:00 55 19 159/51 (87) 100 07/25/18 08:36 119/38 07/25/18 08:36 56 119/38 07/25/18 08:00 Mechanical Ventilator 07/25/18 08:00 98.3 52 16 119/38 (65) 100 98.3 07/25/18 08:00 54 07/25/18 08:00 30 07/25/18 07:15 53 20 30 07/25/18 07:00 57 16 135/42 (73) 100 07/25/18 06:00 55 11 135/44 (74) 100 07/25/18 05:00 55 18 131/38 (69) 100 07/25/18 04:56 64 20 30 07/25/18 04:00 98.2 61 18 137/41 (73) 100 98.2 07/25/18 04:00 Mechanical Ventilator 30.0 07/25/18 04:00 30 07/25/18 04:00 60 07/25/18 03:48 172/21 07/25/18 03:00 57 20 30 07/25/18 03:00 59 18 181/51 (94) 100 07/25/18 02:00 61 18 161/51 (87) 100 07/25/18 01:03 60 20 30 07/25/18 01:00 64 20 158/46 (83) 100 07/25/18 00:00 56 07/25/18 00:00 30 07/25/18 00:00 Mechanical Ventilator 30.0 07/25/18 00:00 98.6 64 17 150/48 (82) 100 98.6 07/24/18 23:00 64 18 156/58 (90) 100 07/24/18 22:59 64 20 30 07/24/18 22:00 60 20 161/51 (87) 100 07/24/18 21:00 64 20 161/51 (87) 100 07/24/18 20:52 71 164/68 07/24/18 20:48 68 20 30 07/24/18 20:00 99.5 65 19 164/48 (86) 100 99.5 07/24/18 20:00 Mechanical Ventilator 30.0 07/24/18 20:00 65 07/24/18 20:00 30 07/24/18 19:01 59 20 30 07/24/18 19:00 63 20 161/48 (85) 100 07/24/18 18:00 69 20 144/47 (79) 100 07/24/18 17:29 61 20 30 07/24/18 17:00 69 20 141/41 (74) 99 07/24/18 16:00 65 07/24/18 16:00 30 07/24/18 16:00 99.8 65 20 121/45 (70) 99 99.8 07/24/18 16:00 Mechanical Ventilator 30.0 07/24/18 15:00 64 20 124/39 (67) 99 Intake and Output 07/24/18 07/25/18 19:00 07:00 Intake Total 535 ml 795 ml Output Total 2500 ml 200 ml Balance -1965 ml 595 ml Free Water 150 ml IV Total 55 ml 165 ml Tube Feeding 480 ml 480 ml Output Urine Total 0 ml 200 ml Hemodialysis UF 2500 ml Laboratory Tests 07/25/18 05:00: White Blood Count 4.6L, Red Blood Count 2.77L, Hemoglobin 8.5L, Hematocrit 26.4L , Mean Corpuscular Volume 95, Mean Corpuscular Hemoglobin 30.6, Mean Corpuscular Hemoglobin Concent 32.2, Red Cell Distribution Width 15.8H, Platelet Count 91L, Mean Platelet Volume 8.0, Neutrophils (%) (Auto) , Lymphocytes (%) (Auto) , Monocytes (%) (Auto) , Eosinophils (%) (Auto) , Basophils (%) (Auto) , Differential Total Cells Counted 100, Neutrophils % ( Manual) 75, Lymphocytes % (Manual) 16L, Monocytes % (Manual) 7, Eosinophils % ( Manual) 2, Basophils % (Manual) 0, Band Neutrophils 0, Platelet Estimate DecreasedL, Platelet Morphology Normal, Hypochromasia 1+, Anisocytosis 1+, Sodium Level 137, Potassium Level 3.5, Chloride Level 99, Carbon Dioxide Level 32, Anion Gap 6, Blood Urea Nitrogen 54H, Creatinine 7.0H, Estimat Glomerular Filtration Rate 9.6, Glucose Level 140H, Calcium Level 8.8, Random Vancomycin Level 17.7 07/25/18 09:09: Arterial Blood pH 7.550*H, Arterial Blood Partial Pressure CO2 33.4L, Arterial Blood Partial Pressure O2 85.1, Arterial Blood HCO3 28.8H, Arterial Blood Oxygen Saturation 96.3, Arterial Blood Base Excess 6.2H, Calvin Test Positive Height (Feet): 5 Height (Inches): 8.00 Weight (Pounds): 212 General Appearance: no apparent distress Neck: normal alignment Cardiovascular: regular rhythm Respiratory/Chest: normal breath sounds Abdomen: no mass Extremities: normal range of motion - vent++ Neurologic: responsive Virgil Ward MD Jul 25, 2018 14:56
[2018-07-25] MEDS ORDERED: NS 275ml ONE (15:20)
[2018-07-25] MEDS ORDERED: Tubing IV Secondary IV ONE (15:20)
--- NOTE | 2018-07-25 15:41 | General Progress Note ---
Assessment/Plan Status: stable Assessment/Plan Acute hypercapnic respiratory failure - possibly 2/2 aspiration pneumonia vs HCAP, continue with vent support per Pulm and spontaneous breathing trials. Severe sepsis due to suspected gram negative pneumonia, continue current antibiotics, ID following ESRD on HD, continue HD per Nephrology Metabolic acidosis, resolved Acute on chronic diastolic heart failure, fluid management with HD. Cards following NSTEMI type 2, continue ASA, stress test held for now per Cardiology Acute metabolic encephalopathy superimposed on dementia and psychosis, currently intubated, psychiatry following Hypertensive heart and renal disease, continue metoprolol Pancytopenia likely due to BM suppression, Hematology following Diet, continue tube feeds DVT ppx: HSQ, SCDs Subjective Date patient seen: Jul 25, 2018 Time patient seen: 13:00 ROS Limited/Unobtainable: Yes Allergies: Coded Allergies: No Known Allergies (Verified , 11/24/07) UNABLE TO ASSESS (Unverified , 07/15/18) Subjective Medicine followup for multiple medical problems including: Acute hypercapnic respiratory failure due to suspected gram negative pneumonia, acute metabolic encephalopathy, acute on chronic diastolic CHF. He remains intubated in ICU, weaning trials resumed today. Objective Last 24 Hour Vital Signs Date Time Temp Pulse Resp B/P (MAP) Pulse Ox O2 Delivery O2 Flow Rate FiO2 07/25/18 15:05 179/56 07/25/18 15:02 56 16 30 07/25/18 14:00 56 16 162/54 (90) 100 07/25/18 13:14 59 16 30 07/25/18 13:00 63 16 136/47 (76) 100 07/25/18 12:00 97.7 55 16 111/50 (70) 100 97.7 07/25/18 12:00 30 07/25/18 12:00 53 07/25/18 12:00 Mechanical Ventilator 07/25/18 11:08 55 16 30 07/25/18 11:00 59 14 151/52 (85) 100 07/25/18 10:00 54 16 129/42 (71) 97 07/25/18 09:30 100 07/25/18 09:05 54 20 30 07/25/18 09:00 55 19 159/51 (87) 100 07/25/18 08:36 119/38 07/25/18 08:36 56 119/38 07/25/18 08:00 Mechanical Ventilator 07/25/18 08:00 98.3 52 16 119/38 (65) 100 98.3 07/25/18 08:00 54 07/25/18 08:00 30 07/25/18 07:15 53 20 30 07/25/18 07:00 57 16 135/42 (73) 100 07/25/18 06:00 55 11 135/44 (74) 100 07/25/18 05:00 55 18 131/38 (69) 100 07/25/18 04:56 64 20 30 07/25/18 04:00 98.2 61 18 137/41 (73) 100 98.2 07/25/18 04:00 Mechanical Ventilator 30.0 07/25/18 04:00 30 07/25/18 04:00 60 07/25/18 03:48 172/21 07/25/18 03:00 57 20 30 07/25/18 03:00 59 18 181/51 (94) 100 07/25/18 02:00 61 18 161/51 (87) 100 07/25/18 01:03 60 20 30 07/25/18 01:00 64 20 158/46 (83) 100 07/25/18 00:00 56 07/25/18 00:00 30 07/25/18 00:00 Mechanical Ventilator 30.0 07/25/18 00:00 98.6 64 17 150/48 (82) 100 98.6 07/24/18 23:00 64 18 156/58 (90) 100 07/24/18 22:59 64 20 30 07/24/18 22:00 60 20 161/51 (87) 100 07/24/18 21:00 64 20 161/51 (87) 100 07/24/18 20:52 71 164/68 07/24/18 20:48 68 20 30 07/24/18 20:00 99.5 65 19 164/48 (86) 100 99.5 07/24/18 20:00 Mechanical Ventilator 30.0 07/24/18 20:00 65 07/24/18 20:00 30 07/24/18 19:01 59 20 30 07/24/18 19:00 63 20 161/48 (85) 100 07/24/18 18:00 69 20 144/47 (79) 100 9/29/18 17:29 61 20 30 07/24/18 17:00 69 20 141/41 (74) 99 07/24/18 16:00 65 07/24/18 16:00 30 07/24/18 16:00 99.8 65 20 121/45 (70) 99 99.8 07/24/18 16:00 Mechanical Ventilator 30.0 Intake and Output 07/24/18 07/25/18 19:00 07:00 Intake Total 535 ml 795 ml Output Total 2500 ml 200 ml Balance -1965 ml 595 ml Free Water 150 ml IV Total 55 ml 165 ml Tube Feeding 480 ml 480 ml Output Urine Total 0 ml 200 ml Hemodialysis UF 2500 ml Laboratory Tests 07/25/18 05:00: White Blood Count 4.6L, Red Blood Count 2.77L, Hemoglobin 8.5L, Hematocrit 26.4L , Mean Corpuscular Volume 95, Mean Corpuscular Hemoglobin 30.6, Mean Corpuscular Hemoglobin Concent 32.2, Red Cell Distribution Width 15.8H, Platelet Count 91L, Mean Platelet Volume 8.0, Neutrophils (%) (Auto) , Lymphocytes (%) (Auto) , Monocytes (%) (Auto) , Eosinophils (%) (Auto) , Basophils (%) (Auto) , Differential Total Cells Counted 100, Neutrophils % ( Manual) 75, Lymphocytes % (Manual) 16L, Monocytes % (Manual) 7, Eosinophils % ( Manual) 2, Basophils % (Manual) 0, Band Neutrophils 0, Platelet Estimate DecreasedL, Platelet Morphology Normal, Hypochromasia 1+, Anisocytosis 1+, Sodium Level 137, Potassium Level 3.5, Chloride Level 99, Carbon Dioxide Level 32, Anion Gap 6, Blood Urea Nitrogen 54H, Creatinine 7.0H, Estimat Glomerular Filtration Rate 9.6, Glucose Level 140H, Calcium Level 8.8, Random Vancomycin Level 17.7 07/25/18 09:09: Arterial Blood pH 7.550*H, Arterial Blood Partial Pressure CO2 33.4L, Arterial Blood Partial Pressure O2 85.1, Arterial Blood HCO3 28.8H, Arterial Blood Oxygen Saturation 96.3, Arterial Blood Base Excess 6.2H, Calvin Test Positive Height (Feet): 5 Height (Inches): 8.00 Weight (Pounds): 212 General Appearance: alert Neck: normal alignment Cardiovascular: normal rate, regular rhythm Respiratory/Chest: lungs clear, normal breath sounds Abdomen: non tender, soft Adam Jones MD Jul 25, 2018 15:41
--- NOTE | 2018-07-25 18:51 | Infectious Diseases Prog Note ---
Assessment/Plan Assessment/Plan ASSESSMENT AND PLAN: 1. mrsas pna, aspiration pna, sepsis, fevers, respiratory failure, vent - vancomycin and zosyn - day # 5 - monitor labs and chest x-ray - watch temps - fever curve better - chest x-ray without change - weaning in process 2. Respiratory failure, on vent. 3. End-stage renal disease, on hemodialysis. 4. Intensive care unit care. 5. Skin care protocol. 6. Hypertension. 7. Hypertensive kidney disease. 8. Gastroesophageal reflux disease. 9. Diabetes. 10. Hyperlipidemia. 11. Anemia. 12. Dementia. 13. Allergies are negative. 14. Family history is noncontributory. 15. Social history is negative. 16. MAR was noted. 17. Case was discussed with RN. 18. Notes and records were noted. 19. Orders were entered. 20. Continue treatment per primary consultants. Subjective Constitutional: Reports: other - fever curve better, more alert, no pressors, weaning; Denies: fever HEENT: Reports: other Respiratory: Reports: shortness of breath, other - + secretion per vision teacher: Reports: other - no pressors ; Denies: chest pain Genitourinary: Reports: other - + condom catheter Neurologic: Reports: other - more alert Psychiatric: Denies: depression Skin: Denies: rash Hematologic: Denies: bleeding Musculoskeletal: Denies: pain Allergies: Coded Allergies: No Known Allergies (Verified , 11/24/07) UNABLE TO ASSESS (Unverified , 07/15/18) Objective Vital Signs Last 24 Hour Vital Signs Date Time Temp Pulse Resp B/P (MAP) Pulse Ox O2 Delivery O2 Flow Rate FiO2 07/25/18 17:05 55 16 30 07/25/18 16:00 Mechanical Ventilator 07/25/18 16:00 98.9 56 17 127/39 (68) 100 98.9 07/25/18 16:00 30 07/25/18 15:05 179/56 07/25/18 15:02 56 16 30 07/25/18 15:00 62 17 179/56 (97) 100 07/25/18 14:00 56 16 162/54 (90) 100 07/25/18 13:14 59 16 30 07/25/18 13:00 63 16 136/47 (76) 100 07/25/18 12:00 97.7 55 16 111/50 (70) 100 97.7 07/25/18 12:00 30 07/25/18 12:00 53 07/25/18 12:00 Mechanical Ventilator 07/25/18 11:08 55 16 30 07/25/18 11:00 59 14 151/52 (85) 100 07/25/18 10:00 54 16 129/42 (71) 97 07/25/18 09:30 100 07/25/18 09:05 54 20 30 07/25/18 09:00 55 19 159/51 (87) 100 07/25/18 08:36 119/38 07/25/18 08:36 56 119/38 07/25/18 08:00 Mechanical Ventilator 07/25/18 08:00 98.3 52 16 119/38 (65) 100 98.3 07/25/18 08:00 54 07/25/18 08:00 30 07/25/18 07:15 53 20 30 07/25/18 07:00 57 16 135/42 (73) 100 07/25/18 06:00 55 11 135/44 (74) 100 07/25/18 05:00 55 18 131/38 (69) 100 07/25/18 04:56 64 20 30 07/25/18 04:00 98.2 61 18 137/41 (73) 100 98.2 07/25/18 04:00 Mechanical Ventilator 30.0 07/25/18 04:00 30 07/25/18 04:00 60 07/25/18 03:48 172/21 07/25/18 03:00 57 20 30 07/25/18 03:00 59 18 181/51 (94) 100 07/25/18 02:00 61 18 161/51 (87) 100 07/25/18 01:03 60 20 30 07/25/18 01:00 64 20 158/46 (83) 100 07/25/18 00:00 56 07/25/18 00:00 30 07/25/18 00:00 Mechanical Ventilator 30.0 07/25/18 00:00 98.6 64 17 150/48 (82) 100 98.6 07/24/18 23:00 64 18 156/58 (90) 100 07/24/18 22:59 64 20 30 07/24/18 22:00 60 20 161/51 (87) 100 9/29/18 21:00 64 20 161/51 (87) 100 07/24/18 20:52 71 164/68 07/24/18 20:48 68 20 30 07/24/18 20:00 99.5 65 19 164/48 (86) 100 99.5 07/24/18 20:00 Mechanical Ventilator 30.0 07/24/18 20:00 65 07/24/18 20:00 30 07/24/18 19:01 59 20 30 07/24/18 19:00 63 20 161/48 (85) 100 Height (Feet): 5 Height (Inches): 8.00 Weight (Pounds): 212 General Appearance: other - on vent, weanin, no pressors HEENT: normocephalic, atraumatic, anicteric, mucous membranes moist, EOMI, other - oral - intubated Respiratory/Chest: crackles/rales, rhonchi - bilaterally Cardiovascular: normal rate, regular rhythm, no gallop/murmur, no JVD Abdomen: normal bowel sounds, soft, non tender, no organomegaly, non distended Genitourinary: other - + condom cath, urine clear Extremities: no cyanosis Skin: no rash Neurologic/Psychiatric: flat bed knitter II-XII grossly normal, alert, responsive Lymphatic: no neck adenopathy Musculoskeletal: no effusion Objective 07/23 - Chest x-ray - Technique: One view of the chest Comparison: 07/21/2018 Findings: Bilateral basilar parenchymal opacities, left-sided pleural thickening versus fluid are all unchanged. Stable tube and line positions. Impression: Unchanged, over 2 days, findings as above. 07/25 - chest x-ray - IMPRESSION: 1. Persistent patchy bibasilar opacities, most prominent in the left lower lung/retrocardiac region, which may represent subsegmental atelectasis versus infiltrate. 2. No significant change in the prominent interstitial markings. This may be related to mild pulmonary vascular congestion versus interstitial pneumonitis. 3. Persistent small left pleural effusion. Microbiology Date/Time Source Procedure Growth Status 07/20/18 20:00 Blood Blood Culture - Preliminary NO GROWTH AFTER 72 HOURS Resulted 07/20/18 18:06 Sputum Induced Gram Stain - Final Complete 07/20/18 18:06 Sputum Culture - Final Staphylococcus Aureus - Mrsa Complete 07/23/18 10:50 Urine,Clean Catch Urine Culture - Preliminary Resulted Microbiology Date/Time Source Procedure Growth Status 07/23/18 10:50 Urine,Clean Catch Urine Culture - Preliminary Resulted Laboratory Tests Test 07/25/18 05:00 07/25/18 09:09 White Blood Count 4.6 K/UL (4.8-10.8) L Red Blood Count 2.77 M/UL (4.70-6.10) L Hemoglobin 8.5 G/DL (14.2-18.0) L Hematocrit 26.4 % (42.0-52.0) L Mean Corpuscular Volume 95 FL (80-99) Mean Corpuscular Hemoglobin 30.6 PG (27.0-31.0) Mean Corpuscular Hemoglobin Concent 32.2 G/DL (32.0-36.0) Red Cell Distribution Width 15.8 % (11.6-14.8) H Platelet Count 91 K/UL (150-450) L Mean Platelet Volume 8.0 FL (6.5-10.1) Neutrophils (%) (Auto) % (45.0-75.0) Lymphocytes (%) (Auto) % (20.0-45.0) Monocytes (%) (Auto) % (1.0-10.0) Eosinophils (%) (Auto) % (0.0-3.0) Basophils (%) (Auto) % (0.0-2.0) Differential Total Cells Counted 100 Neutrophils % (Manual) 75 % (45-75) Lymphocytes % (Manual) 16 % (20-45) L Monocytes % (Manual) 7 % (1-10) Eosinophils % (Manual) 2 % (0-3) Basophils % (Manual) 0 % (0-2) Band Neutrophils 0 % (0-8) Platelet Estimate Decreased L Platelet Morphology Normal Hypochromasia 1+ Anisocytosis 1+ Sodium Level 137 MMOL/L (136-145) Potassium Level 3.5 MMOL/L (3.5-5.1) Chloride Level 99 MMOL/L (98-107) Carbon Dioxide Level 32 MMOL/L (21-32) Anion Gap 6 mmol/L (5-15) Blood Urea Nitrogen 54 mg/dL (7-18) H Creatinine 7.0 MG/DL (0.55-1.30) H Estimat Glomerular Filtration Rate 9.6 mL/min (>60) Glucose Level 140 MG/DL (74-106) H Calcium Level 8.8 MG/DL (8.5-10.1) Random Vancomycin Level 17.7 ug/mL Arterial Blood pH 7.550 (7.350-7.450) Arterial Blood Partial Pressure CO2 33.4 mmHg (35.0-45.0) L Arterial Blood Partial Pressure O2 85.1 mmHg (75.0-100.0) Arterial Blood HCO3 28.8 mmol/L (22.0-26.0) H Arterial Blood Oxygen Saturation 96.3 % (95-100) Arterial Blood Base Excess 6.2 (-2-2) H Calvin Test Positive Current Medications Medications (Trade) Dose Ordered Sig/Praveen Route PRN Reason Start Time Stop Time Status Last Admin Dose Admin Acetaminophen (Tylenol) 650 mg Q4H PRN ORAL fever 07/20/18 08:15 08/15/18 08:14 07/22/18 12:28 Albuterol/ Ipratropium (Albuterol/ Ipratropium) 3 ml Q4HRT PRN HHN sob 07/24/18 07:00 07/29/18 06:59 Aspirin (ASA) 162 mg DAILY NG 07/24/18 09:00 08/23/18 08:59 07/25/18 08:35 Dextrose (Dextrose 50%) 25 ml Q30M PRN IV Hypoglycemia 07/23/18 10:00 08/22/18 09:54 Dextrose (Dextrose 50%) 50 ml Q30M PRN IV hypoglycemia 07/23/18 10:00 08/22/18 09:59 Epoetin Yao (Procrit (for ESRD on dialysis)) 10,000 units [id number]-[id number] SUBQ 07/21/18 21:00 08/15/18 20:59 07/23/18 22:12 Haloperidol Lactate (Haldol) 5 mg Q6H PRN IM Agitation 07/20/18 08:15 08/16/18 08:14 Hydralazine HCl (Apresoline) 10 mg Q4H PRN IV SBP > OR = 160mmHg 07/20/18 15:00 08/19/18 14:59 07/25/18 15:05 Insulin Aspart (NovoLOG) EVERY 6 HOURS SUBQ 07/22/18 00:00 08/16/18 20:59 07/25/18 18:07 Iron Sucrose 100 mg/Sodium Chloride 55 ml @ 200 mls/hr BEDTIME IV 07/20/18 21:00 07/25/18 21:17 07/24/18 20:53 Lorazepam (Ativan 2mg/ml 1ml) 2 mg Q4H PRN IV For Anxiety 07/20/18 09:45 07/27/18 09:29 07/24/18 04:11 Morphine Sulfate (Morphine Sulfate) 4 mg Q4H PRN IVP For Pain 07/20/18 09:30 07/27/18 09:29 07/20/18 21:57 Nitroglycerin (Ntg) 1 patch DAILY TDERMAL 07/21/18 10:30 08/20/18 10:29 07/25/18 08:36 Pantoprazole (Protonix) 40 mg Q12HR IV 07/21/18 21:00 08/19/18 08:59 07/25/18 08:35 Piperacillin Sod/ Tazobactam Sod 2.25 gm/Dextrose 55 ml @ 110 mls/hr Q8H IV 07/20/18 19:30 07/27/18 19:29 07/25/18 11:41 Quetiapine Fumarate (SEROquel) 25 mg Q6H PRN ORAL For Anxiety 07/20/18 08:30 08/15/18 08:29 Quetiapine Fumarate (SEROquel) 100 mg Q8HR ORAL 07/20/18 14:00 08/15/18 13:59 07/25/18 18:04 Sevelamer Carbonate (Renvela) 1,600 mg THREE TIMES A DAY ORAL 07/23/18 13:00 08/15/18 12:59 07/25/18 18:04 Vancomycin HCl (Vanco rx to dose) 1 ea DAILY PRN MISC Per rx protocol 07/20/18 18:00 08/19/18 17:59 Olinda Poon MD Jul 25, 2018 18:51
[2018-07-25] MEDS: Piperacillin/Tazobactam 2.25 GM in D5W 55 ML IV SCH (19:42)
--- NOTE | 2018-07-25 22:15 | Cardiology Progress Note ---
Assessment/Plan Status: stable Assessment/Plan Assessment: 1) ESRD (end stage renal disease) on dialysis (2) Anemia in chronic kidney disease (CKD) (3) Hypertensive kidney disease (4) Encephalopathy (5) DM (6) Hyperlipemia Plan: Maintain hemodialysis Echocardiogram --> preserved systolic function, mild valvular regurgitation, mild pulmonary hypertension, elevated filling pressures Stress text next week to evaluate chest pain given multiple cardiac risk factors and NSVT - currently unstable to proceed Aspirin Statin Serial EKG/Troponin No indication for troponin at this time. No indication for urgent cardiac cath LE ultrasound PRBC transfusion Maintain hemodialysis Vent care Tube feeds Poor prognosis Subjective Cardiovascular: Reports: no symptoms Respiratory: Reports: no symptoms Gastrointestinal/Abdominal: Reports: no symptoms Genitourinary: Reports: no symptoms Subjective Pt has been placed on SIMV 20 600 30% +0 with PS 8 at 1313. Pt not breathing appropriate volumes. Pt has been sleeping almost all day. NGT in place, BP stable no acute events Objective Last 24 Hour Vital Signs Date Time Temp Pulse Resp B/P (MAP) Pulse Ox O2 Delivery O2 Flow Rate FiO2 07/25/18 21:00 60 16 107/42 (63) 98 07/25/18 21:00 67 18 30 07/25/18 20:02 63 07/25/18 20:00 99.1 64 16 113/37 (62) 100 99.1 07/25/18 20:00 30 07/25/18 20:00 Mechanical Ventilator 07/25/18 19:00 63 16 119/42 (67) 99 07/25/18 19:00 63 16 30 07/25/18 18:00 61 17 134/46 (75) 100 07/25/18 17:05 55 16 30 07/25/18 17:00 57 17 138/45 (76) 100 07/25/18 16:00 Mechanical Ventilator 07/25/18 16:00 98.9 56 17 127/39 (68) 100 98.9 07/25/18 16:00 30 07/25/18 16:00 56 07/25/18 15:05 179/56 07/25/18 15:02 56 16 30 07/25/18 15:00 62 17 179/56 (97) 100 07/25/18 14:00 56 16 162/54 (90) 100 07/25/18 13:14 59 16 30 07/25/18 13:00 63 16 136/47 (76) 100 07/25/18 12:00 97.7 55 16 111/50 (70) 100 97.7 07/25/18 12:00 30 07/25/18 12:00 53 07/25/18 12:00 Mechanical Ventilator 07/25/18 11:08 55 16 30 07/25/18 11:00 59 14 151/52 (85) 100 07/25/18 10:00 54 16 129/42 (71) 97 07/25/18 09:30 100 07/25/18 09:05 54 20 30 07/25/18 09:00 55 19 159/51 (87) 100 07/25/18 08:36 119/38 07/25/18 08:36 56 119/38 07/25/18 08:00 Mechanical Ventilator 07/25/18 08:00 98.3 52 16 119/38 (65) 100 98.3 07/25/18 08:00 54 07/25/18 08:00 30 07/25/18 07:15 53 20 30 07/25/18 07:00 57 16 135/42 (73) 100 07/25/18 06:00 55 11 135/44 (74) 100 07/25/18 05:00 55 18 131/38 (69) 100 07/25/18 04:56 64 20 30 07/25/18 04:00 98.2 61 18 137/41 (73) 100 98.2 07/25/18 04:00 Mechanical Ventilator 30.0 07/25/18 04:00 30 07/25/18 04:00 60 07/25/18 03:48 172/21 07/25/18 03:00 57 20 30 07/25/18 03:00 59 18 181/51 (94) 100 07/25/18 02:00 61 18 161/51 (87) 100 07/25/18 01:03 60 20 30 07/25/18 01:00 64 20 158/46 (83) 100 07/25/18 00:00 56 07/25/18 00:00 30 07/25/18 00:00 Mechanical Ventilator 30.0 07/25/18 00:00 98.6 64 17 150/48 (82) 100 98.6 07/24/18 23:00 64 18 156/58 (90) 100 07/24/18 22:59 64 20 30 General Appearance: no apparent distress, lethargic, on vent EENT: PERRL/EOMI, normal ENT inspection, TMs normal, pharynx normal Neck: non-tender, normal alignment, supple, normal inspection, no JVD Rhythm: NSR Cardiovascular: normal peripheral pulses, normal rate, regular rhythm Respiratory/Chest: chest wall non-tender, lungs clear, decreased breath sounds , accessory muscle use, crackles/rales, rhonchi - bilaterally Abdomen: normal bowel sounds, non tender, soft Extremities: normal range of motion, non-tender Neurologic: 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-XII grossly normal, motor weakness, sensory deficit, unresponsiveness Intake and Output 07/24/18 07/25/18 19:00 07:00 Intake Total 535 ml 795 ml Output Total 2500 ml 200 ml Balance -1965 ml 595 ml Free Water 150 ml IV Total 55 ml 165 ml Tube Feeding 480 ml 480 ml Output Urine Total 0 ml 200 ml Hemodialysis UF 2500 ml Laboratory Tests Test 07/25/18 05:00 07/25/18 09:09 White Blood Count 4.6 K/UL (4.8-10.8) L Red Blood Count 2.77 M/UL (4.70-6.10) L Hemoglobin 8.5 G/DL (14.2-18.0) L Hematocrit 26.4 % (42.0-52.0) L Mean Corpuscular Volume 95 FL (80-99) Mean Corpuscular Hemoglobin 30.6 PG (27.0-31.0) Mean Corpuscular Hemoglobin Concent 32.2 G/DL (32.0-36.0) Red Cell Distribution Width 15.8 % (11.6-14.8) H Platelet Count 91 K/UL (150-450) L Mean Platelet Volume 8.0 FL (6.5-10.1) Neutrophils (%) (Auto) % (45.0-75.0) Lymphocytes (%) (Auto) % (20.0-45.0) Monocytes (%) (Auto) % (1.0-10.0) Eosinophils (%) (Auto) % (0.0-3.0) Basophils (%) (Auto) % (0.0-2.0) Differential Total Cells Counted 100 Neutrophils % (Manual) 75 % (45-75) Lymphocytes % (Manual) 16 % (20-45) L Monocytes % (Manual) 7 % (1-10) Eosinophils % (Manual) 2 % (0-3) Basophils % (Manual) 0 % (0-2) Band Neutrophils 0 % (0-8) Platelet Estimate Decreased L Platelet Morphology Normal Hypochromasia 1+ Anisocytosis 1+ Sodium Level 137 MMOL/L (136-145) Potassium Level 3.5 MMOL/L (3.5-5.1) Chloride Level 99 MMOL/L (98-107) Carbon Dioxide Level 32 MMOL/L (21-32) Anion Gap 6 mmol/L (5-15) Blood Urea Nitrogen 54 mg/dL (7-18) H Creatinine 7.0 MG/DL (0.55-1.30) H Estimat Glomerular Filtration Rate 9.6 mL/min (>60) Glucose Level 140 MG/DL (74-106) H Calcium Level 8.8 MG/DL (8.5-10.1) Random Vancomycin Level 17.7 ug/mL Arterial Blood pH 7.550 (7.350-7.450) Arterial Blood Partial Pressure CO2 33.4 mmHg (35.0-45.0) L Arterial Blood Partial Pressure O2 85.1 mmHg (75.0-100.0) Arterial Blood HCO3 28.8 mmol/L (22.0-26.0) H Arterial Blood Oxygen Saturation 96.3 % (95-100) Arterial Blood Base Excess 6.2 (-2-2) H Calvin Test Positive Microbiology Date/Time Source Procedure Growth Status 07/23/18 10:50 Urine,Clean Catch Urine Culture - Preliminary Resulted Yimi Luevano MD Jul 25, 2018 22:15
[2018-07-26] VITALS (24 sets, daily range): BP systolic 121–165; BP diastolic 38–93
[2018-07-26] MEDS: Piperacillin/Tazobactam 2.25 GM in D5W 55 ML IV SCH ×3 (03:13→19:31)
[2018-07-26] MEDS: NovoLOG Insulin Flexpen SUBQ SCH ×4 (05:31→23:54)
--- NOTE | 2018-07-26 07:22 | General Progress Note ---
Assessment/Plan Assessment/Plan # Pancytopenia potentially reactive process versus meds related or related to bone marrow process, hepatitis and hiv both reviewed and are negative, has been acute onset since admission --> stable to improving --> us of the abdomen shows splenomegaly++ and can in future repeat as needed --> at this time, does not need a bone marrow biopsy --> on IV iron and epogen sq --> neupogen sq prn if ANC <1000 --> wbc count is better, does not require supportive growth factors # Anemia of chronic disease has been evaluated and reviewed, does have evidence of iron deficiency, has been given iron once d/c --> po iron once discharged --> ok for epogen --> on iv iron --> appreciate renal recs --> on HD prn # ESRD as per nephro --> on hd prn, has received while in hospital # + cardiomeghaly with PVC # Health care associated pneumonia --> Pulm consulted, appreciate recs --> Pt now intubated and on vent since 07/20 --> abx as per ID # Encephalopathy -- can communicate with eyes --> has improved slowly Greatly appreciate consultation! Subjective Constitutional: Denies: no symptoms, chills, diaphoresis, fever, malaise, weakness, other HEENT: Denies: no symptoms, eye pain, blurred vision, tearing, double vision, ear pain, ear discharge, nose pain, nose congestion, throat pain, throat swelling, mouth pain, mouth swelling, other Cardiovascular: Denies: no symptoms, chest pain, edema, irregular heart rate, lightheadedness, palpitations, syncope, other Respiratory: Denies: no symptoms, cough, orthopnea, shortness of breath, SOB with excertion, SOB at rest, sputum, stridor, wheezing, other Gastrointestinal/Abdominal: Denies: no symptoms, abdomen distended, abdominal pain, black stools, tarry stools, blood in stool, constipated, diarrhea, difficulty swallowing, nausea, poor appetite, poor fluid intake, rectal bleeding , vomiting, other Genitourinary: Denies: no symptoms, burning, discharge, frequency, flank pain, hematuria, incontinence, pain, urgency, other Neurologic/Psychiatric: Denies: no symptoms, anxiety, depressed, emotional problems, headache, numbness, paresthesia, pre-existing deficit, seizure, tingling, tremors, weakness, other Allergies: Coded Allergies: No Known Allergies (Verified , 11/24/07) UNABLE TO ASSESS (Unverified , 07/15/18) Subjective getting HD as per nephro, on vent, eye communicates+ Objective Last 24 Hour Vital Signs Date Time Temp Pulse Resp B/P (MAP) Pulse Ox O2 Delivery O2 Flow Rate FiO2 07/26/18 07:00 59 18 125/42 (69) 97 07/26/18 06:00 73 22 125/38 (67) 96 07/26/18 05:30 65 18 30 07/26/18 05:00 62 17 130/83 (99) 100 07/26/18 04:09 69 07/26/18 04:00 30 07/26/18 04:00 Mechanical Ventilator 07/26/18 04:00 98.5 69 18 128/38 (68) 100 98.5 07/26/18 03:12 161/50 07/26/18 03:10 61 18 30 07/26/18 03:00 67 18 161/50 (87) 100 07/26/18 02:00 61 18 148/46 (80) 100 07/26/18 01:06 59 18 30 07/26/18 01:00 60 18 147/48 (81) 100 07/26/18 00:03 63 07/26/18 00:00 30 07/26/18 00:00 98.4 63 18 140/48 (78) 100 98.4 07/26/18 00:00 Mechanical Ventilator 07/25/18 23:08 61 18 30 07/25/18 23:00 65 18 144/45 (78) 100 07/25/18 22:00 59 18 125/92 (103) 100 07/25/18 21:02 30 07/25/18 21:00 60 16 107/42 (63) 98 07/25/18 21:00 67 18 30 07/25/18 20:02 63 07/25/18 20:00 99.1 64 16 113/37 (62) 100 99.1 07/25/18 20:00 30 07/25/18 20:00 Mechanical Ventilator 07/25/18 19:00 63 16 119/42 (67) 99 07/25/18 19:00 63 16 30 07/25/18 18:00 61 17 134/46 (75) 100 07/25/18 17:05 55 16 30 07/25/18 17:00 57 17 138/45 (76) 100 07/25/18 16:00 Mechanical Ventilator 07/25/18 16:00 98.9 56 17 127/39 (68) 100 98.9 07/25/18 16:00 30 07/25/18 16:00 56 07/25/18 15:05 179/56 07/25/18 15:02 56 16 30 07/25/18 15:00 62 17 179/56 (97) 100 07/25/18 14:00 56 16 162/54 (90) 100 07/25/18 13:14 59 16 30 07/25/18 13:00 63 16 136/47 (76) 100 07/25/18 12:00 97.7 55 16 111/50 (70) 100 97.7 07/25/18 12:00 30 07/25/18 12:00 53 07/25/18 12:00 Mechanical Ventilator 07/25/18 11:08 55 16 30 07/25/18 11:00 59 14 151/52 (85) 100 07/25/18 10:00 54 16 129/42 (71) 97 07/25/18 09:30 100 07/25/18 09:05 54 20 30 07/25/18 09:00 55 19 159/51 (87) 100 07/25/18 08:36 119/38 07/25/18 08:36 56 119/38 07/25/18 08:00 Mechanical Ventilator 07/25/18 08:00 98.3 52 16 119/38 (65) 100 98.3 07/25/18 08:00 54 07/25/18 08:00 30 Intake and Output 07/25/18 07/26/18 19:00 07:00 Intake Total 641 ml 695 ml Output Total 15 ml 30 ml Balance 626 ml 665 ml IV Total 305 ml 165 ml Tube Feeding 226 ml 480 ml Other 110 ml 50 ml Output Urine Total 15 ml 30 ml Laboratory Tests 07/25/18 09:09: Arterial Blood pH 7.550*H, Arterial Blood Partial Pressure CO2 33.4L, Arterial Blood Partial Pressure O2 85.1, Arterial Blood HCO3 28.8H, Arterial Blood Oxygen Saturation 96.3, Arterial Blood Base Excess 6.2H, Calvin Test Positive Height (Feet): 5 Height (Inches): 8.00 Weight (Pounds): 212 General Appearance: lethargic EENT: normal ENT inspection Neck: supple Cardiovascular: regular rhythm Respiratory/Chest: normal breath sounds Abdomen: no organomegaly, other - peg++ Extremities: non-tender Edema: 1+ Leg (L), 1+ Leg (R) Edema: trace edema Neurologic: alert Skin: warm/dry Virgil Ward MD Jul 26, 2018 07:22
[2018-07-26 07:32] LABS: BASOPHILS % (AUTO) 0.8 % (0.0-2.0); EOSINOPHILS % (AUTO) 3.9 % (0.0-3.0); HEMOGLOBIN 8.4 G/DL (14.2-18.0); LYMPHOCYTES % (AUTO) 8.2 % (20.0-45.0); MEAN CORPUSCULAR VOLUME 94 FL (80-99); NEUTROPHILS % (AUTO) 73.1 % (45.0-75.0); PLATELET COUNT 117 K/UL (150-450); RED BLOOD COUNT 2.67 M/UL (4.70-6.10); RED CELL DISTRIBUTION WIDTH 15.2 % (11.6-14.8); WHITE BLOOD COUNT 5.4 K/UL (4.8-10.8)
[2018-07-26 07:59] LABS: % IRON SATURATION 28 % (15-50); IRON 38 ug/dL (50-175); TOTAL IRON BINDING CAPACITY 134 ug/dL (250-450)
[2018-07-26 08:07] LABS: ANION GAP 7 mmol/L (5-15); BLOOD UREA NITROGEN 62 mg/dL (7-18); CALCIUM 8.7 MG/DL (8.5-10.1); CARBON DIOXIDE 31 MMOL/L (21-32); CHLORIDE 100 MMOL/L (98-107); CREATININE 8.7 MG/DL (0.55-1.30); FERRITIN 397 NG/ML (8-388); POTASSIUM 3.5 MMOL/L (3.5-5.1); SODIUM 138 MMOL/L (136-145)
[2018-07-26 08:11] LABS: ALANINE AMINOTRANSFERASE 21 U/L (12-78); ALKALINE PHOSPHATASE 111 U/L (46-116); ASPARTATE AMINO TRANSFERASE 19 U/L (15-37); BILIRUBIN,DIRECT < 0.1 MG/DL (0.0-0.3); BILIRUBIN,TOTAL 0.4 MG/DL (0.2-1.0); PHOSPHORUS 5.1 MG/DL (2.5-4.9)
[2018-07-26] MEDS: Pantoprazole Inj IV SCH ×2 (08:45→20:54)
[2018-07-26] MEDS: Renvela 800mg Pkt ORAL SCH ×3 (08:46→17:51)
[2018-07-26] MEDS: Nitroglycerin Patch 0.4mg TDERMAL SCH (08:46)
--- NOTE | 2018-07-26 08:48 | Diagnostic Imaging Report ---
Indication: Post nasogastric tube placement Technique: Supine view of the upper abdomen Comparison: 07/20/2018 Findings: There is a nasogastric tube, in less marked than on the prior study, by tip nonetheless in the gastric body fundus junction and proximal port beyond the expected level of the gastroesophageal junction. There appears to be decreased left pleural fluid. There is overall prominent bowel gas within colon and upper limits of normal caliber small bowel loops, unchanged Impression: Satisfactory position of nasogastric tube Stable prominent gas-filled small bowel loops This agrees with the preliminary interpretation provided overnight by [facility] teleradiology service.
[2018-07-26] MEDS: Aspirin Baby 81mg NG SCH (08:49)
--- NOTE | 2018-07-26 10:03 | Pulmonolgy Critical Care Note ---
Critical Care - Asmt/Plan Problems: (1) Acute respiratory failure (2) Encephalopathy (3) Anemia in chronic kidney disease (CKD) (4) Dementia with psychosis (5) ESRD (end stage renal disease) on dialysis Respiratory: monitor respiratory rate, adjust FIO2, CXR Cardiac: continue to monitor HR/BP Infectious Disease: check cultures Gastrointestinal: continue feedings/current rate Endocrine: monitor blood sugar, check HgA1C Neurologic: PRN Morphine Affect: PRN ativan Prophylaxis: Protonix Disposition: keep in ICU Notes Reviewed: cardio Discussed with: nurses, consultants, case consultantmanager safe - Objective Last 24 Hour Vital Signs Date Time Temp Pulse Resp B/P (MAP) Pulse Ox O2 Delivery O2 Flow Rate FiO2 07/26/18 09:28 Mechanical Ventilator 30 07/26/18 09:21 64 18 30 07/26/18 09:00 69 18 132/41 (71) 100 07/26/18 08:46 133/43 07/26/18 08:05 100 07/26/18 08:05 68 16 30 07/26/18 08:00 69 07/26/18 08:00 30 07/26/18 08:00 Mechanical Ventilator 07/26/18 08:00 97.1 72 18 128/46 (73) 100 97.1 07/26/18 07:20 67 13 30 07/26/18 07:00 59 18 125/42 (69) 97 07/26/18 06:00 73 22 125/38 (67) 96 07/26/18 05:30 65 18 30 07/26/18 05:00 62 17 130/83 (99) 100 07/26/18 04:09 69 07/26/18 04:00 30 07/26/18 04:00 Mechanical Ventilator 07/26/18 04:00 98.5 69 18 128/38 (68) 100 98.5 07/26/18 03:12 161/50 07/26/18 03:10 61 18 30 07/26/18 03:00 67 18 161/50 (87) 100 07/26/18 02:00 61 18 148/46 (80) 100 07/26/18 01:06 59 18 30 07/26/18 01:00 60 18 147/48 (81) 100 07/26/18 00:03 63 07/26/18 00:00 30 07/26/18 00:00 98.4 63 18 140/48 (78) 100 98.4 07/26/18 00:00 Mechanical Ventilator 07/25/18 23:08 61 18 30 07/25/18 23:00 65 18 144/45 (78) 100 07/25/18 22:00 59 18 125/92 (103) 100 07/25/18 21:02 30 07/25/18 21:00 60 16 107/42 (63) 98 07/25/18 21:00 67 18 30 07/25/18 20:02 63 07/25/18 20:00 99.1 64 16 113/37 (62) 100 99.1 07/25/18 20:00 30 07/25/18 20:00 Mechanical Ventilator 07/25/18 19:00 63 16 119/42 (67) 99 07/25/18 19:00 63 16 30 07/25/18 18:00 61 17 134/46 (75) 100 07/25/18 17:05 55 16 30 07/25/18 17:00 57 17 138/45 (76) 100 07/25/18 16:00 Mechanical Ventilator 07/25/18 16:00 98.9 56 17 127/39 (68) 100 98.9 07/25/18 16:00 30 07/25/18 16:00 56 07/25/18 15:05 179/56 07/25/18 15:02 56 16 30 07/25/18 15:00 62 17 179/56 (97) 100 07/25/18 14:00 56 16 162/54 (90) 100 07/25/18 13:14 59 16 30 07/25/18 13:00 63 16 136/47 (76) 100 07/25/18 12:00 97.7 55 16 111/50 (70) 100 97.7 07/25/18 12:00 30 07/25/18 12:00 53 07/25/18 12:00 Mechanical Ventilator 07/25/18 11:08 55 16 30 07/25/18 11:00 59 14 151/52 (85) 100 Status: awake Condition: critical Neck: full ROM Lungs: chest wall tender Heart: HR/BP stable Abdomen: soft, active bowel sounds Extremities: no C/C/E Decubiti: location Micro: Microbiology Date/Time Source Procedure Growth Status 07/23/18 10:50 Urine,Clean Catch Urine Culture - Preliminary Gram Negative Bacillus 1 Resulted Accucheck: 137 Critical Care - Subjective ROS Limited/Unobtainable: Yes Condition: critical EKG Rhythm: Sinus Tachycardia FI02: 30 Vent Support Breath Rate: 18 Vent Support Mode: CPAP Vent Tidal Volume: 600 Sputum Amount: Small PEEP: 0.0 PIP: 15 Tube Feeding Amount: 40 I&O: Intake and Output 07/25/18 07/26/18 19:00 07:00 Intake Total 641 ml 695 ml Output Total 15 ml 30 ml Balance 626 ml 665 ml IV Total 305 ml 165 ml Tube Feeding 226 ml 480 ml Other 110 ml 50 ml Output Urine Total 15 ml 30 ml CXR: no changes ET-Tube: 7.5 ET Position: 22 Labs: Laboratory Tests Test 07/26/18 06:20 07/26/18 07:10 White Blood Count 5.4 K/UL (4.8-10.8) Red Blood Count 2.67 M/UL (4.70-6.10) L Hemoglobin 8.4 G/DL (14.2-18.0) L Hematocrit 25.0 % (42.0-52.0) L Mean Corpuscular Volume 94 FL (80-99) Mean Corpuscular Hemoglobin 31.3 PG (27.0-31.0) H Mean Corpuscular Hemoglobin Concent 33.5 G/DL (32.0-36.0) Red Cell Distribution Width 15.2 % (11.6-14.8) H Platelet Count 117 K/UL (150-450) L Mean Platelet Volume 7.9 FL (6.5-10.1) Neutrophils (%) (Auto) 73.1 % (45.0-75.0) Lymphocytes (%) (Auto) 8.2 % (20.0-45.0) L Monocytes (%) (Auto) 14.0 % (1.0-10.0) H Eosinophils (%) (Auto) 3.9 % (0.0-3.0) H Basophils (%) (Auto) 0.8 % (0.0-2.0) Sodium Level 138 MMOL/L (136-145) Potassium Level 3.5 MMOL/L (3.5-5.1) Chloride Level 100 MMOL/L (98-107) Carbon Dioxide Level 31 MMOL/L (21-32) Anion Gap 7 mmol/L (5-15) Blood Urea Nitrogen 62 mg/dL (7-18) H Creatinine 8.7 MG/DL (0.55-1.30) H Estimat Glomerular Filtration Rate 7.5 mL/min (>60) Glucose Level 129 MG/DL (74-106) H Uric Acid 4.7 MG/DL (2.6-7.2) Calcium Level 8.7 MG/DL (8.5-10.1) Phosphorus Level 5.1 MG/DL (2.5-4.9) H Magnesium Level 2.5 MG/DL (1.8-2.4) H Iron Level 38 ug/dL (50-175) L Total Iron Binding Capacity 134 ug/dL (250-450) L Percent Iron Saturation 28 % (15-50) Unsaturated Iron Binding 96 ug/dL (112-346) L Ferritin 397 NG/ML (8-388) H Total Bilirubin 0.4 MG/DL (0.2-1.0) Direct Bilirubin < 0.1 MG/DL (0.0-0.3) Aspartate Amino Transf (AST/SGOT) 19 U/L (15-37) Alanine Aminotransferase (ALT/SGPT) 21 U/L (12-78) Alkaline Phosphatase 111 U/L (46-116) Troponin I 0.056 ng/mL (0.000-0.056) C-Reactive Protein, Quantitative 9.5 mg/dL (0.00-0.90) H Pro-B-Type Natriuretic Peptide > 27280 pg/mL (0-125) H Total Protein 6.0 G/DL (6.4-8.2) L Albumin 2.0 G/DL (3.4-5.0) L Arterial Blood pH 7.573 (7.350-7.450) Arterial Blood Partial Pressure CO2 31.0 mmHg (35.0-45.0) L Arterial Blood Partial Pressure O2 97.4 mmHg (75.0-100.0) Arterial Blood HCO3 28.0 mmol/L (22.0-26.0) H Arterial Blood Oxygen Saturation 97.7 % (95-100) Arterial Blood Base Excess 5.8 (-2-2) H Calvin Test Positive Denise Rogers MD Jul 26, 2018 10:03
--- NOTE | 2018-07-26 10:59 | Diagnostic Imaging Report ---
Indication: Shortness of breath Technique: One view of the chest Comparison: 07/25/2018 Findings: Stable satisfactory positions of endotracheal tube, right jugular tunneled dialysis catheter. Nasogastric tube appears to have advanced. Left lateral basilar pleural thickening versus fluid persists. Aortic valve prosthesis again demonstrated. Pulmonary interstitial congestion appears slightly improved, although this may be an artifact of better aeration Impression: Equivocally slightly improved pulmonary interstitial congestion. Otherwise stable findings, as described
--- NOTE | 2018-07-26 11:37 | Nephrology Progress Note ---
Assessment/Plan Problem List: (1) Acute respiratory failure Assessment: on presentation- worsened (2) ESRD (end stage renal disease) on dialysis (3) Hyperkalemia (4) CHF (congestive heart failure) (5) Anemia in chronic kidney disease (CKD) Assessment ESRD has permacath hyperkalemia Shortness of breath, CHF NOW ACUTE RESPIRATORY FAILURE , ON VENT Encephalopathy condition: 1) ESRD (end stage renal disease) on dialysis (2) Anemia in chronic kidney disease (CKD) (3) Hypertensive kidney disease (4) Encephalopathy (5) DM (6) Hyperlipemia Plan Vent support Dialysis 07/26 DC Lopressor change to 4K optimize cardiac status 2 D echo noted adjust BP meds Anemia work up : ? transfusion if needed adjust BS meds phos binders asa nitrate per orders Subjective ROS Limited/Unobtainable: Yes Objective Objective Last 24 Hour Vital Signs Date Time Temp Pulse Resp B/P (MAP) Pulse Ox O2 Delivery O2 Flow Rate FiO2 07/26/18 11:00 70 18 130/42 (71) 100 07/26/18 10:00 72 18 129/42 (71) 100 07/26/18 09:28 Mechanical Ventilator 30 07/26/18 09:21 64 18 30 07/26/18 09:00 69 18 132/41 (71) 100 07/26/18 08:46 133/43 07/26/18 08:05 100 07/26/18 08:05 68 16 30 07/26/18 08:00 69 07/26/18 08:00 30 07/26/18 08:00 Mechanical Ventilator 07/26/18 08:00 97.1 72 18 128/46 (73) 100 97.1 07/26/18 07:20 67 13 30 07/26/18 07:00 59 18 125/42 (69) 97 07/26/18 06:00 73 22 125/38 (67) 96 07/26/18 05:30 65 18 30 07/26/18 05:00 62 17 130/83 (99) 100 07/26/18 04:09 69 07/26/18 04:00 30 07/26/18 04:00 Mechanical Ventilator 07/26/18 04:00 98.5 69 18 128/38 (68) 100 98.5 07/26/18 03:12 161/50 10/1/18 03:10 61 18 30 07/26/18 03:00 67 18 161/50 (87) 100 07/26/18 02:00 61 18 148/46 (80) 100 07/26/18 01:06 59 18 30 07/26/18 01:00 60 18 147/48 (81) 100 07/26/18 00:03 63 07/26/18 00:00 30 07/26/18 00:00 98.4 63 18 140/48 (78) 100 98.4 07/26/18 00:00 Mechanical Ventilator 07/25/18 23:08 61 18 30 07/25/18 23:00 65 18 144/45 (78) 100 07/25/18 22:00 59 18 125/92 (103) 100 07/25/18 21:02 30 07/25/18 21:00 60 16 107/42 (63) 98 07/25/18 21:00 67 18 30 07/25/18 20:02 63 07/25/18 20:00 99.1 64 16 113/37 (62) 100 99.1 07/25/18 20:00 30 07/25/18 20:00 Mechanical Ventilator 07/25/18 19:00 63 16 119/42 (67) 99 07/25/18 19:00 63 16 30 07/25/18 18:00 61 17 134/46 (75) 100 07/25/18 17:05 55 16 30 07/25/18 17:00 57 17 138/45 (76) 100 07/25/18 16:00 Mechanical Ventilator 07/25/18 16:00 98.9 56 17 127/39 (68) 100 98.9 07/25/18 16:00 30 07/25/18 16:00 56 07/25/18 15:05 179/56 07/25/18 15:02 56 16 30 07/25/18 15:00 62 17 179/56 (97) 100 07/25/18 14:00 56 16 162/54 (90) 100 07/25/18 13:14 59 16 30 07/25/18 13:00 63 16 136/47 (76) 100 07/25/18 12:00 97.7 55 16 111/50 (70) 100 97.7 07/25/18 12:00 30 07/25/18 12:00 53 07/25/18 12:00 Mechanical Ventilator Intake and Output 07/25/18 07/26/18 19:00 07:00 Intake Total 641 ml 695 ml Output Total 15 ml 30 ml Balance 626 ml 665 ml IV Total 305 ml 165 ml Tube Feeding 226 ml 480 ml Other 110 ml 50 ml Output Urine Total 15 ml 30 ml Laboratory Tests 07/26/18 06:20: White Blood Count 5.4, Red Blood Count 2.67L, Hemoglobin 8.4L, Hematocrit 25.0L , Mean Corpuscular Volume 94, Mean Corpuscular Hemoglobin 31.3H, Mean Corpuscular Hemoglobin Concent 33.5, Red Cell Distribution Width 15.2H, Platelet Count 117L, Mean Platelet Volume 7.9, Neutrophils (%) (Auto) 73.1, Lymphocytes (%) (Auto) 8.2L, Monocytes (%) (Auto) 14.0H, Eosinophils (%) (Auto) 3.9H, Basophils (%) (Auto) 0.8, Sodium Level 138, Potassium Level 3.5, Chloride Level 100, Carbon Dioxide Level 31, Anion Gap 7, Blood Urea Nitrogen 62H, Creatinine 8.7H, Estimat Glomerular Filtration Rate 7.5, Glucose Level 129H, Uric Acid 4.7, Calcium Level 8.7, Phosphorus Level 5.1H, Magnesium Level 2.5H, Iron Level 38L, Total Iron Binding Capacity 134L, Percent Iron Saturation 28, Unsaturated Iron Binding 96L, Ferritin 397H, Total Bilirubin 0.4, Direct Bilirubin < 0.1, Aspartate Amino Transf (AST/SGOT) 19, Alanine Aminotransferase (ALT/SGPT) 21, Alkaline Phosphatase 111, Troponin I 0.056, C-Reactive Protein, Quantitative 9.5H, Pro-B-Type Natriuretic Peptide > 12052L, Total Protein 6.0L, Albumin 2.0L 07/26/18 07:10: Arterial Blood pH 7.573*H, Arterial Blood Partial Pressure CO2 31.0L, Arterial Blood Partial Pressure O2 97.4, Arterial Blood HCO3 28.0H, Arterial Blood Oxygen Saturation 97.7, Arterial Blood Base Excess 5.8H, Calvin Test Positive Height (Feet): 5 Height (Inches): 8.00 Weight (Pounds): 212 EENT: other - vented Cardiovascular: normal rate Respiratory/Chest: decreased breath sounds Abdomen: distended Objective no change Mirza Conde MD Jul 26, 2018 11:37
--- NOTE | 2018-07-26 15:14 | Diagnostic Imaging Report ---
APPROVED REPORT CPT Code: 52254 Present Symptoms Shortness of breath BILATERAL: Imaging reveals a patent deep venous system bilaterally. There is no evidence of thrombus within the femoral, popliteal or tibial segments. The greater saphenous veins are also within normal limits. Doppler indicates normal spontaneous flow within these segments.
--- NOTE | 2018-07-26 18:58 | General Progress Note ---
Assessment/Plan Assessment/Plan Acute hypercapnic respiratory failure - possibly 2/2 aspiration pneumonia vs HCAP possible extubation today. Pulm following. Severe sepsis due to suspected gram negative pneumonia, continue current antibiotics, ID following ESRD on HD, continue HD per Nephrology Metabolic acidosis, resolved Acute on chronic diastolic heart failure, fluid management with HD. Cards following NSTEMI type 2, continue ASA, stress test held for now per Cardiology Acute metabolic encephalopathy superimposed on dementia and psychosis, currently intubated, psychiatry following Hypertensive heart and renal disease, continue metoprolol Pancytopenia likely due to BM suppression, Hematology following Diet, continue tube feeds DVT ppx: HSQ, SCDs Subjective Date patient seen: Jul 26, 2018 Time patient seen: 17:30 ROS Limited/Unobtainable: Yes Allergies: Coded Allergies: No Known Allergies (Verified , 11/24/07) UNABLE TO ASSESS (Unverified , 07/15/18) Subjective Medicine followup for multiple medical problems including: Acute hypercapnic respiratory failure due to suspected gram negative pneumonia, acute metabolic encephalopathy, acute on chronic diastolic CHF. Unable to obtain ROS as he was intubated. Objective Last 24 Hour Vital Signs Date Time Temp Pulse Resp B/P (MAP) Pulse Ox O2 Delivery O2 Flow Rate FiO2 07/26/18 18:00 74 18 143/49 (80) 100 07/26/18 17:00 80 18 131/45 (73) 100 07/26/18 16:00 97.2 75 18 128/44 (72) 99 97.2 07/26/18 16:00 Nasal Cannula 2.0 07/26/18 16:00 76 07/26/18 15:55 Nasal Cannula 3.0 32 07/26/18 15:10 68 19 30 07/26/18 15:00 102 18 156/52 (86) 100 07/26/18 14:00 83 18 121/39 (66) 100 07/26/18 13:01 69 22 30 07/26/18 13:00 72 18 146/45 (78) 100 07/26/18 12:00 70 07/26/18 12:00 Mechanical Ventilator 07/26/18 12:00 30 07/26/18 12:00 97.6 70 18 141/45 (77) 100 97.6 07/26/18 11:52 Mechanical Ventilator 30 07/26/18 11:31 65 20 30 07/26/18 11:00 70 18 130/42 (71) 100 07/26/18 10:00 72 18 129/42 (71) 100 07/26/18 09:28 Mechanical Ventilator 30 07/26/18 09:21 64 18 30 07/26/18 09:00 69 18 132/41 (71) 100 07/26/18 08:46 133/43 07/26/18 08:05 100 07/26/18 08:05 68 16 30 07/26/18 08:00 69 07/26/18 08:00 30 07/26/18 08:00 Mechanical Ventilator 07/26/18 08:00 97.1 72 18 128/46 (73) 100 97.1 07/26/18 07:20 67 13 30 07/26/18 07:00 59 18 125/42 (69) 97 07/26/18 06:00 73 22 125/38 (67) 96 07/26/18 05:30 65 18 30 07/26/18 05:00 62 17 130/83 (99) 100 07/26/18 04:09 69 07/26/18 04:00 30 07/26/18 04:00 Mechanical Ventilator 07/26/18 04:00 98.5 69 18 128/38 (68) 100 98.5 07/26/18 03:12 161/50 07/26/18 03:10 61 18 30 07/26/18 03:00 67 18 161/50 (87) 100 07/26/18 02:00 61 18 148/46 (80) 100 07/26/18 01:06 59 18 30 07/26/18 01:00 60 18 147/48 (81) 100 07/26/18 00:03 63 07/26/18 00:00 30 07/26/18 00:00 98.4 63 18 140/48 (78) 100 98.4 07/26/18 00:00 Mechanical Ventilator 07/25/18 23:08 61 18 30 07/25/18 23:00 65 18 144/45 (78) 100 07/25/18 22:00 59 18 125/92 (103) 100 07/25/18 21:02 30 07/25/18 21:00 60 16 107/42 (63) 98 07/25/18 21:00 67 18 30 07/25/18 20:02 63 07/25/18 20:00 99.1 64 16 113/37 (62) 100 99.1 07/25/18 20:00 30 07/25/18 20:00 Mechanical Ventilator 07/25/18 19:00 63 16 119/42 (67) 99 07/25/18 19:00 63 16 30 Intake and Output 07/25/18 07/26/18 19:00 07:00 Intake Total 641 ml 695 ml Output Total 15 ml 30 ml Balance 626 ml 665 ml IV Total 305 ml 165 ml Tube Feeding 226 ml 480 ml Other 110 ml 50 ml Output Urine Total 15 ml 30 ml Laboratory Tests 07/26/18 06:20: White Blood Count 5.4, Red Blood Count 2.67L, Hemoglobin 8.4L, Hematocrit 25.0L , Mean Corpuscular Volume 94, Mean Corpuscular Hemoglobin 31.3H, Mean Corpuscular Hemoglobin Concent 33.5, Red Cell Distribution Width 15.2H, Platelet Count 117L, Mean Platelet Volume 7.9, Neutrophils (%) (Auto) 73.1, Lymphocytes (%) (Auto) 8.2L, Monocytes (%) (Auto) 14.0H, Eosinophils (%) (Auto) 3.9H, Basophils (%) (Auto) 0.8, Sodium Level 138, Potassium Level 3.5, Chloride Level 100, Carbon Dioxide Level 31, Anion Gap 7, Blood Urea Nitrogen 62H, Creatinine 8.7H, Estimat Glomerular Filtration Rate 7.5, Glucose Level 129H, Uric Acid 4.7, Calcium Level 8.7, Phosphorus Level 5.1H, Magnesium Level 2.5H, Iron Level 38L, Total Iron Binding Capacity 134L, Percent Iron Saturation 28, Unsaturated Iron Binding 96L, Ferritin 397H, Total Bilirubin 0.4, Direct Bilirubin < 0.1, Aspartate Amino Transf (AST/SGOT) 19, Alanine Aminotransferase (ALT/SGPT) 21, Alkaline Phosphatase 111, Troponin I 0.056, C-Reactive Protein, Quantitative 9.5H, Pro-B-Type Natriuretic Peptide > 32081T, Total Protein 6.0L, Albumin 2.0L 07/26/18 07:10: Arterial Blood pH 7.573*H, Arterial Blood Partial Pressure CO2 31.0L, Arterial Blood Partial Pressure O2 97.4, Arterial Blood HCO3 28.0H, Arterial Blood Oxygen Saturation 97.7, Arterial Blood Base Excess 5.8H, Calvin Test Positive 07/26/18 15:10: Arterial Blood pH 7.385, Arterial Blood Partial Pressure CO2 46.0H, Arterial Blood Partial Pressure O2 93.0, Arterial Blood HCO3 27.0H, Arterial Blood Oxygen Saturation 96.4, Arterial Blood Base Excess 1.6, Calvin Test Positive Height (Feet): 5 Height (Inches): 8.00 Weight (Pounds): 212 General Appearance: alert Cardiovascular: normal rate Respiratory/Chest: lungs clear Abdomen: soft Adam Jones MD Jul 26, 2018 18:58
[2018-07-26] MEDS: Dyna-Hex 2% Top Sol 2oz TOPIC SCH (19:31)
[2018-07-26] MEDS: Epogen (for ESRD on dialysis) SUBQ SCH (20:54)
--- NOTE | 2018-07-26 22:26 | Cardiology Progress Note ---
Assessment/Plan Status: stable Assessment/Plan Assessment: 1) ESRD (end stage renal disease) on dialysis (2) Anemia in chronic kidney disease (CKD) (3) Hypertensive kidney disease (4) Encephalopathy (5) DM (6) Hyperlipemia Plan: Maintain hemodialysis Echocardiogram --> preserved systolic function, mild valvular regurgitation, mild pulmonary hypertension, elevated filling pressures Stress text next week to evaluate chest pain given multiple cardiac risk factors and NSVT - Aspirin Statin No indication for urgent cardiac cath Pulmonary toilet Speech/swallow evaluation Transfer to [facility] Subjective Cardiovascular: Reports: no symptoms Respiratory: Reports: no symptoms Gastrointestinal/Abdominal: Reports: no symptoms Genitourinary: Reports: no symptoms Subjective Patient had HD today, 3 liters out, extubated today to nasal canula. Speech/ swallow evaluation pending, vitals stable. Patient responsive Objective Last 24 Hour Vital Signs Date Time Temp Pulse Resp B/P (MAP) Pulse Ox O2 Delivery O2 Flow Rate FiO2 07/26/18 22:00 84 22 139/45 (76) 100 07/26/18 21:00 78 27 157/58 (91) 100 07/26/18 20:00 Nasal Cannula 2.0 07/26/18 20:00 98.5 79 27 135/66 (89) 99 98.5 07/26/18 19:13 78 07/26/18 19:00 77 18 142/47 (78) 100 07/26/18 18:00 74 18 143/49 (80) 100 07/26/18 17:00 80 18 131/45 (73) 100 07/26/18 16:00 97.2 75 18 128/44 (72) 99 97.2 07/26/18 16:00 Nasal Cannula 2.0 07/26/18 16:00 76 07/26/18 15:55 Nasal Cannula 3.0 32 07/26/18 15:10 68 19 30 07/26/18 15:00 102 18 156/52 (86) 100 07/26/18 14:00 83 18 121/39 (66) 100 07/26/18 13:01 69 22 30 07/26/18 13:00 72 18 146/45 (78) 100 07/26/18 12:00 70 07/26/18 12:00 Mechanical Ventilator 07/26/18 12:00 30 07/26/18 12:00 97.6 70 18 141/45 (77) 100 97.6 07/26/18 11:52 Mechanical Ventilator 30 07/26/18 11:31 65 20 30 07/26/18 11:00 70 18 130/42 (71) 100 07/26/18 10:00 72 18 129/42 (71) 100 07/26/18 09:28 Mechanical Ventilator 30 07/26/18 09:21 64 18 30 07/26/18 09:00 69 18 132/41 (71) 100 07/26/18 08:46 133/43 07/26/18 08:05 100 07/26/18 08:05 68 16 30 07/26/18 08:00 69 07/26/18 08:00 30 07/26/18 08:00 Mechanical Ventilator 07/26/18 08:00 97.1 72 18 128/46 (73) 100 97.1 07/26/18 07:20 67 13 30 07/26/18 07:00 59 18 125/42 (69) 97 07/26/18 06:00 73 22 125/38 (67) 96 07/26/18 05:30 65 18 30 07/26/18 05:00 62 17 130/83 (99) 100 07/26/18 04:09 69 07/26/18 04:00 30 07/26/18 04:00 Mechanical Ventilator 07/26/18 04:00 98.5 69 18 128/38 (68) 100 98.5 07/26/18 03:12 161/50 07/26/18 03:10 61 18 30 07/26/18 03:00 67 18 161/50 (87) 100 07/26/18 02:00 61 18 148/46 (80) 100 07/26/18 01:06 59 18 30 07/26/18 01:00 60 18 147/48 (81) 100 07/26/18 00:03 63 07/26/18 00:00 30 07/26/18 00:00 98.4 63 18 140/48 (78) 100 98.4 07/26/18 00:00 Mechanical Ventilator 07/25/18 23:08 61 18 30 07/25/18 23:00 65 18 144/45 (78) 100 General Appearance: no apparent distress, alert, agitated EENT: PERRL/EOMI, normal ENT inspection, TMs normal, pharynx normal Neck: non-tender, normal alignment, supple, normal inspection Rhythm: NSR Cardiovascular: normal peripheral pulses, normal rate, regular rhythm Respiratory/Chest: chest wall non-tender, crackles/rales, rhonchi - bilaterally Abdomen: normal bowel sounds, non tender, soft, no organomegaly, no mass Extremities: normal range of motion, non-tender, normal inspection, no calf tenderness, no swelling Neurologic: supervisor carbon electrodes II-XII grossly normal, alert, responsive Intake and Output 07/25/18 07/26/18 19:00 07:00 Intake Total 641 ml 695 ml Output Total 15 ml 30 ml Balance 626 ml 665 ml IV Total 305 ml 165 ml Tube Feeding 226 ml 480 ml Other 110 ml 50 ml Output Urine Total 15 ml 30 ml Laboratory Tests Test 07/26/18 06:20 07/26/18 07:10 07/26/18 15:10 White Blood Count 5.4 K/UL (4.8-10.8) Red Blood Count 2.67 M/UL (4.70-6.10) L Hemoglobin 8.4 G/DL (14.2-18.0) L Hematocrit 25.0 % (42.0-52.0) L Mean Corpuscular Volume 94 FL (80-99) Mean Corpuscular Hemoglobin 31.3 PG (27.0-31.0) H Mean Corpuscular Hemoglobin Concent 33.5 G/DL (32.0-36.0) Red Cell Distribution Width 15.2 % (11.6-14.8) H Platelet Count 117 K/UL (150-450) L Mean Platelet Volume 7.9 FL (6.5-10.1) Neutrophils (%) (Auto) 73.1 % (45.0-75.0) Lymphocytes (%) (Auto) 8.2 % (20.0-45.0) L Monocytes (%) (Auto) 14.0 % (1.0-10.0) H Eosinophils (%) (Auto) 3.9 % (0.0-3.0) H Basophils (%) (Auto) 0.8 % (0.0-2.0) Sodium Level 138 MMOL/L (136-145) Potassium Level 3.5 MMOL/L (3.5-5.1) Chloride Level 100 MMOL/L (98-107) Carbon Dioxide Level 31 MMOL/L (21-32) Anion Gap 7 mmol/L (5-15) Blood Urea Nitrogen 62 mg/dL (7-18) H Creatinine 8.7 MG/DL (0.55-1.30) H Estimat Glomerular Filtration Rate 7.5 mL/min (>60) Glucose Level 129 MG/DL (74-106) H Uric Acid 4.7 MG/DL (2.6-7.2) Calcium Level 8.7 MG/DL (8.5-10.1) Phosphorus Level 5.1 MG/DL (2.5-4.9) H Magnesium Level 2.5 MG/DL (1.8-2.4) H Iron Level 38 ug/dL (50-175) L Total Iron Binding Capacity 134 ug/dL (250-450) L Percent Iron Saturation 28 % (15-50) Unsaturated Iron Binding 96 ug/dL (112-346) L Ferritin 397 NG/ML (8-388) H Total Bilirubin 0.4 MG/DL (0.2-1.0) Direct Bilirubin < 0.1 MG/DL (0.0-0.3) Aspartate Amino Transf (AST/SGOT) 19 U/L (15-37) Alanine Aminotransferase (ALT/SGPT) 21 U/L (12-78) Alkaline Phosphatase 111 U/L (46-116) Troponin I 0.056 ng/mL (0.000-0.056) C-Reactive Protein, Quantitative 9.5 mg/dL (0.00-0.90) H Pro-B-Type Natriuretic Peptide > 23789 pg/mL (0-125) H Total Protein 6.0 G/DL (6.4-8.2) L Albumin 2.0 G/DL (3.4-5.0) L Arterial Blood pH 7.573 (7.350-7.450) 7.385 (7.350-7.450) Arterial Blood Partial Pressure CO2 31.0 mmHg (35.0-45.0) L 46.0 mmHg (35.0-45.0) H Arterial Blood Partial Pressure O2 97.4 mmHg (75.0-100.0) 93.0 mmHg (75.0-100.0) Arterial Blood HCO3 28.0 mmol/L (22.0-26.0) H 27.0 mmol/L (22.0-26.0) H Arterial Blood Oxygen Saturation 97.7 % (95-100) 96.4 % (95-100) Arterial Blood Base Excess 5.8 (-2-2) H 1.6 (-2-2) Calvin Test Positive Positive Yimi Luevano MD Jul 26, 2018 22:26
[2018-07-26] MEDS: LORazepam Inj 2mg/ml 1ml IV PRN (23:31)
[2018-07-27] VITALS (24 sets, daily range): BP systolic 118–176; BP diastolic 36–84
[2018-07-27] MEDS: Piperacillin/Tazobactam 2.25 GM in D5W 55 ML IV SCH ×3 (03:08→19:30)
[2018-07-27 04:43] LABS: HEMATOCRIT 25.1 % (42.0-52.0); HEMOGLOBIN 7.9 G/DL (14.2-18.0); MEAN CORPUSCULAR VOLUME 95 FL (80-99); PLATELET COUNT 147 K/UL (150-450); RED BLOOD COUNT 2.64 M/UL (4.70-6.10); RED CELL DISTRIBUTION WIDTH 15.3 % (11.6-14.8); WHITE BLOOD COUNT 6.3 K/UL (4.8-10.8)
[2018-07-27 05:06] LABS: ALANINE AMINOTRANSFERASE 22 U/L (12-78); ALBUMIN 2.1 G/DL (3.4-5.0); ALBUMIN/GLOBULIN RATIO 0.5 (1.0-2.7); ALKALINE PHOSPHATASE 108 U/L (46-116); ANION GAP 7 mmol/L (5-15); ASPARTATE AMINO TRANSFERASE 18 U/L (15-37); BILIRUBIN,TOTAL 0.4 MG/DL (0.2-1.0); BLOOD UREA NITROGEN 55 mg/dL (7-18); CALCIUM 8.6 MG/DL (8.5-10.1); CARBON DIOXIDE 30 MMOL/L (21-32); CHLORIDE 102 MMOL/L (98-107); CREATININE 8.3 MG/DL (0.55-1.30); PHOSPHORUS 5.6 MG/DL (2.5-4.9); SODIUM 139 MMOL/L (136-145)
[2018-07-27] MEDS: NovoLOG Insulin Flexpen SUBQ SCH ×3 (05:48→18:00)
--- NOTE | 2018-07-27 08:03 | General Progress Note ---
Assessment/Plan Assessment/Plan # Pancytopenia potentially reactive process versus meds related or related to bone marrow process, hepatitis and hiv both reviewed and are negative, has been acute onset since admission --> stable to improving --> us of the abdomen shows splenomegaly++ and can in future repeat as needed --> at this time, does not need a bone marrow biopsy --> on IV iron and epogen sq --> neupogen sq prn if ANC <1000 --> wbc count is better, does not require supportive growth factors --> LABS reviewed # Anemia of chronic disease has been evaluated and reviewed, does have evidence of iron deficiency, has been given iron once d/c --> po iron once discharged --> ok for epogen --> on iv iron --> appreciate renal recs --> on HD prn # ESRD as per nephro --> on hd prn, has received while in hospital # + cardiomeghaly with PVC # Health care associated pneumonia --> Pulm consulted, appreciate recs --> Pt now intubated and on vent since 07/20 --> abx as per ID # Encephalopathy -- can communicate with eyes --> has improved slowly Greatly appreciate consultation! Subjective Constitutional: Denies: no symptoms, chills, diaphoresis, fever, malaise, weakness, other HEENT: Denies: no symptoms, eye pain, blurred vision, tearing, double vision, ear pain, ear discharge, nose pain, nose congestion, throat pain, throat swelling, mouth pain, mouth swelling, other Cardiovascular: Denies: no symptoms, chest pain, edema, irregular heart rate, lightheadedness, palpitations, syncope, other Respiratory: Denies: no symptoms, cough, orthopnea, shortness of breath, SOB with excertion, SOB at rest, sputum, stridor, wheezing, other Gastrointestinal/Abdominal: Denies: no symptoms, abdomen distended, abdominal pain, black stools, tarry stools, blood in stool, constipated, diarrhea, difficulty swallowing, nausea, poor appetite, poor fluid intake, rectal bleeding , vomiting, other Genitourinary: Denies: no symptoms, burning, discharge, frequency, flank pain, hematuria, incontinence, pain, urgency, other Endocrine: Denies: no symptoms, excessive sweating, flushing, intolerance to cold, intolerance to heat, increased hunger, increased thirst, increased urine, unexplained weight gain, unexplained weight loss, other Allergies: Coded Allergies: No Known Allergies (Verified , 11/24/07) UNABLE TO ASSESS (Unverified , 07/15/18) Subjective getting HD as per nephro, on vent, eye communicates+, now extubated Objective Last 24 Hour Vital Signs Date Time Temp Pulse Resp B/P (MAP) Pulse Ox O2 Delivery O2 Flow Rate FiO2 07/27/18 07:00 73 24 118/36 (63) 100 07/27/18 06:00 74 24 141/42 (75) 100 07/27/18 05:00 73 24 126/38 (67) 100 07/27/18 04:00 98.4 81 22 136/41 (72) 100 98.4 07/27/18 04:00 Nasal Cannula 2.0 07/27/18 03:05 84 07/27/18 03:00 85 22 138/81 (100) 100 07/27/18 02:00 83 19 152/48 (82) 100 07/27/18 01:00 87 30 142/52 (82) 100 07/27/18 00:00 Nasal Cannula 2.0 07/27/18 00:00 98.4 89 26 140/47 (78) 99 98.4 07/26/18 23:14 165/93 07/26/18 23:09 87 07/26/18 23:00 97 24 165/93 (117) 99 07/26/18 22:00 84 22 139/45 (76) 100 07/26/18 21:00 78 27 157/58 (91) 100 07/26/18 20:00 Nasal Cannula 2.0 07/26/18 20:00 98.5 79 27 135/66 (89) 99 98.5 07/26/18 19:13 78 07/26/18 19:00 77 18 142/47 (78) 100 07/26/18 18:00 74 18 143/49 (80) 100 07/26/18 17:00 80 18 131/45 (73) 100 07/26/18 16:00 97.2 75 18 128/44 (72) 99 97.2 07/26/18 16:00 Nasal Cannula 2.0 07/26/18 16:00 76 07/26/18 15:55 Nasal Cannula 3.0 32 07/26/18 15:10 68 19 30 07/26/18 15:00 102 18 156/52 (86) 100 07/26/18 14:00 83 18 121/39 (66) 100 07/26/18 13:01 69 22 30 07/26/18 13:00 72 18 146/45 (78) 100 07/26/18 12:00 70 07/26/18 12:00 Mechanical Ventilator 07/26/18 12:00 30 07/26/18 12:00 97.6 70 18 141/45 (77) 100 97.6 07/26/18 11:52 Mechanical Ventilator 30 07/26/18 11:31 65 20 30 07/26/18 11:00 70 18 130/42 (71) 100 07/26/18 10:00 72 18 129/42 (71) 100 07/26/18 09:28 Mechanical Ventilator 30 07/26/18 09:21 64 18 30 07/26/18 09:00 69 18 132/41 (71) 100 07/26/18 08:46 133/43 07/26/18 08:05 100 07/26/18 08:05 68 16 30 Intake and Output 07/26/18 07/27/18 19:00 07:00 Intake Total 3535 ml 140 ml Output Total 725 ml 331 ml Balance 2810 ml -191 ml IV Total 55 ml 110 ml Tube Feeding 480 ml 0 ml Hemodialysis 3000 ml Other 30 ml Output Urine Total 725 ml 331 ml # Bowel Movements 1 Laboratory Tests 07/26/18 15:10: Arterial Blood pH 7.385, Arterial Blood Partial Pressure CO2 46.0H, Arterial Blood Partial Pressure O2 93.0, Arterial Blood HCO3 27.0H, Arterial Blood Oxygen Saturation 96.4, Arterial Blood Base Excess 1.6, Calvin Test Positive 07/27/18 04:17: White Blood Count 6.3, Red Blood Count 2.64L, Hemoglobin 7.9L, Hematocrit 25.1L , Mean Corpuscular Volume 95, Mean Corpuscular Hemoglobin 30.0, Mean Corpuscular Hemoglobin Concent 31.6L, Red Cell Distribution Width 15.3H, Platelet Count 147L, Mean Platelet Volume 8.1, Neutrophils (%) (Auto) , Lymphocytes (%) (Auto) , Monocytes (%) (Auto) , Eosinophils (%) (Auto) , Basophils (%) (Auto) , Neutrophils % (Manual) [Pending], Lymphocytes % (Manual) [Pending], Platelet Estimate [Pending], Platelet Morphology [Pending], Sodium Level 139, Potassium Level 4.0, Chloride Level 102, Carbon Dioxide Level 30, Anion Gap 7, Blood Urea Nitrogen 55H, Creatinine 8.3H, Estimat Glomerular Filtration Rate 7.9, Glucose Level 84, Calcium Level 8.6, Phosphorus Level 5.6H , Magnesium Level 2.3, Total Bilirubin 0.4, Aspartate Amino Transf (AST/SGOT) 18 , Alanine Aminotransferase (ALT/SGPT) 22, Alkaline Phosphatase 108, Total Protein 6.2L, Albumin 2.1L, Globulin 4.1, Albumin/Globulin Ratio 0.5L, Random Vancomycin Level 23.6 Height (Feet): 5 Height (Inches): 8.00 Weight (Pounds): 199 General Appearance: alert EENT: TMs normal Neck: supple Cardiovascular: regular rhythm Respiratory/Chest: normal breath sounds Abdomen: no organomegaly Edema: 1+ Leg (L), 1+ Leg (R) Edema: mild edema Neurologic: alert Virgil Ward MD Jul 27, 2018 08:03
[2018-07-27] MEDS: Nitroglycerin Patch 0.4mg TDERMAL SCH (08:43)
[2018-07-27] MEDS: Pantoprazole Inj IV SCH ×2 (08:44→20:23)
[2018-07-27] MEDS: Renvela 800mg Pkt ORAL SCH ×3 (09:00→18:00)
[2018-07-27] MEDS: Aspirin Baby 81mg NG SCH (09:00)
--- NOTE | 2018-07-27 09:50 | Diagnostic Imaging Report ---
Indication: Cough Technique: One view of the chest Comparison: And 11/14/2017 Findings: Interim removal of endotracheal and nasogastric tubes. Less optimal inspiration on the current exam. Left lateral pleural thickening persists. Ill-defined interstitial and airspace disease in the left mid and lower lung are probably unchanged allowing for differences and degree of inspiration. Median sternotomy sutures, aortic valve prosthesis, right jugular tunneled dialysis catheter remain. Impression: Interim endotracheal and nasogastric tube removal. Otherwise essentially unchanged over one day, findings as described
--- NOTE | 2018-07-27 10:38 | Pulmonolgy Critical Care Note ---
Critical Care - Asmt/Plan Problems: (1) Acute respiratory failure (2) Encephalopathy (3) Anemia in chronic kidney disease (CKD) (4) Dementia with psychosis (5) ESRD (end stage renal disease) on dialysis Respiratory: monitor respiratory rate, adjust FIO2 Cardiac: continue to monitor HR/BP Renal: F/U I&O Infectious Disease: check cultures Gastrointestinal: continue feedings/current rate Endocrine: monitor blood sugar, check HgA1C Hematologic: monitor H/H, transfuse if hgb<8.5 Neurologic: keep patient comfortable Affect: PRN ativan Prophylaxis: Heparin Disposition: keep in ICU Notes Reviewed: [id number] developer, cardio, renal Discussed with: nurses, consultants, embedded case managermanager of sustainability - Objective Last 24 Hour Vital Signs Date Time Temp Pulse Resp B/P (MAP) Pulse Ox O2 Delivery O2 Flow Rate FiO2 07/27/18 10:00 82 25 154/48 (83) 100 07/27/18 09:00 76 21 147/48 (81) 100 07/27/18 08:43 160/50 07/27/18 08:00 98.6 75 24 160/50 (86) 100 98.6 07/27/18 07:00 73 24 118/36 (63) 100 07/27/18 06:00 74 24 141/42 (75) 100 07/27/18 05:00 73 24 126/38 (67) 100 07/27/18 04:00 98.4 81 22 136/41 (72) 100 98.4 07/27/18 04:00 Nasal Cannula 2.0 07/27/18 03:05 84 07/27/18 03:00 85 22 138/81 (100) 100 07/27/18 02:00 83 19 152/48 (82) 100 07/27/18 01:00 87 30 142/52 (82) 100 07/27/18 00:00 Nasal Cannula 2.0 07/27/18 00:00 98.4 89 26 140/47 (78) 99 98.4 07/26/18 23:14 165/93 07/26/18 23:09 87 07/26/18 23:00 97 24 165/93 (117) 99 07/26/18 22:00 84 22 139/45 (76) 100 07/26/18 21:00 78 27 157/58 (91) 100 07/26/18 20:00 Nasal Cannula 2.0 07/26/18 20:00 98.5 79 27 135/66 (89) 99 98.5 07/26/18 19:13 78 07/26/18 19:00 77 18 142/47 (78) 100 07/26/18 18:00 74 18 143/49 (80) 100 07/26/18 17:00 80 18 131/45 (73) 100 07/26/18 16:00 97.2 75 18 128/44 (72) 99 97.2 07/26/18 16:00 Nasal Cannula 2.0 07/26/18 16:00 76 07/26/18 15:55 Nasal Cannula 3.0 32 07/26/18 15:10 68 19 30 07/26/18 15:00 102 18 156/52 (86) 100 07/26/18 14:00 83 18 121/39 (66) 100 07/26/18 13:01 69 22 30 07/26/18 13:00 72 18 146/45 (78) 100 07/26/18 12:00 70 07/26/18 12:00 Mechanical Ventilator 07/26/18 12:00 30 07/26/18 12:00 97.6 70 18 141/45 (77) 100 97.6 07/26/18 11:52 Mechanical Ventilator 30 07/26/18 11:31 65 20 30 07/26/18 11:00 70 18 130/42 (71) 100 Status: awake Condition: critical Neck: full ROM Lungs: chest wall tender Heart: HR/BP unstable Abdomen: non-tender, feeding tube Extremities: edema Decubiti: stage Accucheck: 87 Critical Care - Subjective ROS Limited/Unobtainable: No Interval Events: extubated yesterday, doing better less confused FI02: 32 Vent Support Mode: CPAP Vent Tidal Volume: 600 Sputum Amount: Moderate PEEP: 0.0 PIP: 18 Tube Feeding Amount: 0 I&O: Intake and Output 07/26/18 07/27/18 19:00 07:00 Intake Total 3535 ml 140 ml Output Total 725 ml 331 ml Balance 2810 ml -191 ml IV Total 55 ml 110 ml Tube Feeding 480 ml 0 ml Hemodialysis 3000 ml Other 30 ml Output Urine Total 725 ml 331 ml # Bowel Movements 1 CXR: no new changes, ET-Tube: 7.5 ET Position: 22 Labs: Laboratory Tests Test 07/26/18 15:10 07/27/18 04:17 07/27/18 08:45 Arterial Blood pH 7.385 (7.350-7.450) 7.315 (7.350-7.450) Arterial Blood Partial Pressure CO2 46.0 mmHg (35.0-45.0) H 57.2 mmHg (35.0-45.0) *H Arterial Blood Partial Pressure O2 93.0 mmHg (75.0-100.0) 89.4 mmHg (75.0-100.0) Arterial Blood HCO3 27.0 mmol/L (22.0-26.0) H 28.5 mmol/L (22.0-26.0) H Arterial Blood Oxygen Saturation 96.4 % (95-100) 95.7 % (95-100) Arterial Blood Base Excess 1.6 (-2-2) 1.7 (-2-2) Calvin Test Positive Positive White Blood Count 6.3 K/UL (4.8-10.8) Red Blood Count 2.64 M/UL (4.70-6.10) L Hemoglobin 7.9 G/DL (14.2-18.0) L Hematocrit 25.1 % (42.0-52.0) L Mean Corpuscular Volume 95 FL (80-99) Mean Corpuscular Hemoglobin 30.0 PG (27.0-31.0) Mean Corpuscular Hemoglobin Concent 31.6 G/DL (32.0-36.0) L Red Cell Distribution Width 15.3 % (11.6-14.8) H Platelet Count 147 K/UL (150-450) L Mean Platelet Volume 8.1 FL (6.5-10.1) Neutrophils (%) (Auto) % (45.0-75.0) Lymphocytes (%) (Auto) % (20.0-45.0) Monocytes (%) (Auto) % (1.0-10.0) Eosinophils (%) (Auto) % (0.0-3.0) Basophils (%) (Auto) % (0.0-2.0) Differential Total Cells Counted 100 Neutrophils % (Manual) 69 % (45-75) Lymphocytes % (Manual) 11 % (20-45) L Monocytes % (Manual) 14 % (1-10) H Eosinophils % (Manual) 4 % (0-3) H Basophils % (Manual) 1 % (0-2) Band Neutrophils 1 % (0-8) Platelet Estimate Decreased L Platelet Morphology Normal Hypochromasia 1+ Anisocytosis 1+ Sodium Level 139 MMOL/L (136-145) Potassium Level 4.0 MMOL/L (3.5-5.1) Chloride Level 102 MMOL/L (98-107) Carbon Dioxide Level 30 MMOL/L (21-32) Anion Gap 7 mmol/L (5-15) Blood Urea Nitrogen 55 mg/dL (7-18) H Creatinine 8.3 MG/DL (0.55-1.30) H Estimat Glomerular Filtration Rate 7.9 mL/min (>60) Glucose Level 84 MG/DL (74-106) Calcium Level 8.6 MG/DL (8.5-10.1) Phosphorus Level 5.6 MG/DL (2.5-4.9) H Magnesium Level 2.3 MG/DL (1.8-2.4) Total Bilirubin 0.4 MG/DL (0.2-1.0) Aspartate Amino Transf (AST/SGOT) 18 U/L (15-37) Alanine Aminotransferase (ALT/SGPT) 22 U/L (12-78) Alkaline Phosphatase 108 U/L (46-116) Total Protein 6.2 G/DL (6.4-8.2) L Albumin 2.1 G/DL (3.4-5.0) L Globulin 4.1 g/dL Albumin/Globulin Ratio 0.5 (1.0-2.7) L Random Vancomycin Level 23.6 ug/mL Denise Rogers MD Jul 27, 2018 10:38
--- NOTE | 2018-07-27 11:38 | Nephrology Progress Note ---
Assessment/Plan Problem List: (1) Acute respiratory failure Assessment: on presentation- worsened (2) ESRD (end stage renal disease) on dialysis (3) Hyperkalemia (4) CHF (congestive heart failure) (5) Anemia in chronic kidney disease (CKD) Assessment ESRD has permacath hyperkalemia Shortness of breath, CHF NOW ACUTE RESPIRATORY FAILURE , ON VENT Encephalopathy condition: 1) ESRD (end stage renal disease) on dialysis (2) Anemia in chronic kidney disease (CKD) (3) Hypertensive kidney disease (4) Encephalopathy (5) DM (6) Hyperlipemia Plan post extubation care Dialysis 07/26 next 07/28 DC Lopressor change to 4K optimize cardiac status 2 D echo noted adjust BP meds Anemia work up : ? transfusion if needed adjust BS meds phos binders asa nitrate per orders Subjective ROS Limited/Unobtainable: No Constitutional: Reports: malaise, other - uncoaporative Objective Objective Last 24 Hour Vital Signs Date Time Temp Pulse Resp B/P (MAP) Pulse Ox O2 Delivery O2 Flow Rate FiO2 07/27/18 10:00 82 25 154/48 (83) 100 07/27/18 09:00 76 21 147/48 (81) 100 07/27/18 08:43 160/50 07/27/18 08:00 Nasal Cannula 2.0 07/27/18 08:00 98.6 75 24 160/50 (86) 100 98.6 07/27/18 07:00 73 24 118/36 (63) 100 07/27/18 06:00 74 24 141/42 (75) 100 07/27/18 05:00 73 24 126/38 (67) 100 07/27/18 04:00 98.4 81 22 136/41 (72) 100 98.4 07/27/18 04:00 Nasal Cannula 2.0 07/27/18 03:05 84 07/27/18 03:00 85 22 138/81 (100) 100 07/27/18 02:00 83 19 152/48 (82) 100 07/27/18 01:00 87 30 142/52 (82) 100 07/27/18 00:00 Nasal Cannula 2.0 07/27/18 00:00 98.4 89 26 140/47 (78) 99 98.4 07/26/18 23:14 165/93 07/26/18 23:09 87 10/1/18 23:00 97 24 165/93 (117) 99 07/26/18 22:00 84 22 139/45 (76) 100 07/26/18 21:00 78 27 157/58 (91) 100 07/26/18 20:00 Nasal Cannula 2.0 07/26/18 20:00 98.5 79 27 135/66 (89) 99 98.5 07/26/18 19:13 78 07/26/18 19:00 77 18 142/47 (78) 100 07/26/18 18:00 74 18 143/49 (80) 100 07/26/18 17:00 80 18 131/45 (73) 100 07/26/18 16:00 97.2 75 18 128/44 (72) 99 97.2 07/26/18 16:00 Nasal Cannula 2.0 07/26/18 16:00 76 07/26/18 15:55 Nasal Cannula 3.0 32 07/26/18 15:10 68 19 30 07/26/18 15:00 102 18 156/52 (86) 100 07/26/18 14:00 83 18 121/39 (66) 100 07/26/18 13:01 69 22 30 07/26/18 13:00 72 18 146/45 (78) 100 07/26/18 12:00 70 07/26/18 12:00 Mechanical Ventilator 07/26/18 12:00 30 07/26/18 12:00 97.6 70 18 141/45 (77) 100 97.6 07/26/18 11:52 Mechanical Ventilator 30 Intake and Output 07/26/18 07/27/18 19:00 07:00 Intake Total 3535 ml 140 ml Output Total 725 ml 331 ml Balance 2810 ml -191 ml IV Total 55 ml 110 ml Tube Feeding 480 ml 0 ml Hemodialysis 3000 ml Other 30 ml Output Urine Total 725 ml 331 ml # Bowel Movements 1 Laboratory Tests 07/26/18 15:10: Arterial Blood pH 7.385, Arterial Blood Partial Pressure CO2 46.0H, Arterial Blood Partial Pressure O2 93.0, Arterial Blood HCO3 27.0H, Arterial Blood Oxygen Saturation 96.4, Arterial Blood Base Excess 1.6, Calvin Test Positive 07/27/18 04:17: White Blood Count 6.3, Red Blood Count 2.64L, Hemoglobin 7.9L, Hematocrit 25.1L , Mean Corpuscular Volume 95, Mean Corpuscular Hemoglobin 30.0, Mean Corpuscular Hemoglobin Concent 31.6L, Red Cell Distribution Width 15.3H, Platelet Count 147L, Mean Platelet Volume 8.1, Neutrophils (%) (Auto) , Lymphocytes (%) (Auto) , Monocytes (%) (Auto) , Eosinophils (%) (Auto) , Basophils (%) (Auto) , Differential Total Cells Counted 100, Neutrophils % ( Manual) 69, Lymphocytes % (Manual) 11L, Monocytes % (Manual) 14H, Eosinophils % (Manual) 4H, Basophils % (Manual) 1, Band Neutrophils 1, Platelet Estimate DecreasedL, Platelet Morphology Normal, Hypochromasia 1+, Anisocytosis 1+, Sodium Level 139, Potassium Level 4.0, Chloride Level 102, Carbon Dioxide Level 30, Anion Gap 7, Blood Urea Nitrogen 55H, Creatinine 8.3H, Estimat Glomerular Filtration Rate 7.9, Glucose Level 84, Calcium Level 8.6, Phosphorus Level 5.6H , Magnesium Level 2.3, Total Bilirubin 0.4, Aspartate Amino Transf (AST/SGOT) 18 , Alanine Aminotransferase (ALT/SGPT) 22, Alkaline Phosphatase 108, Total Protein 6.2L, Albumin 2.1L, Globulin 4.1, Albumin/Globulin Ratio 0.5L, Random Vancomycin Level 23.6 07/27/18 08:45: Arterial Blood pH 7.315L, Arterial Blood Partial Pressure CO2 57.2*H, Arterial Blood Partial Pressure O2 89.4, Arterial Blood HCO3 28.5H, Arterial Blood Oxygen Saturation 95.7, Arterial Blood Base Excess 1.7, Calvin Test Positive Height (Feet): 5 Height (Inches): 8.00 Weight (Pounds): 199 General Appearance: mild distress Cardiovascular: normal rate Respiratory/Chest: decreased breath sounds Abdomen: distended Objective no change Mirza Conde MD Jul 27, 2018 11:38
[2018-07-27] MEDS ORDERED: Haloperidol 5mg/ml Inj IM PRN (12:30)
[2018-07-27] MEDS ORDERED: LORazepam Inj 2mg/ml 1ml IM PRN (12:35)
--- NOTE | 2018-07-27 13:57 | Cardiology Progress Note ---
Assessment/Plan Status: stable Assessment/Plan Assessment: 1) ESRD (end stage renal disease) on dialysis (2) Anemia in chronic kidney disease (CKD) (3) Hypertensive kidney disease (4) Encephalopathy (5) DM (6) Hyperlipemia Plan: Maintain hemodialysis Echocardiogram --> preserved systolic function, mild valvular regurgitation, mild pulmonary hypertension, elevated filling pressures Stress text next week to evaluate chest pain given multiple cardiac risk factors and NSVT - Aspirin Statin No indication for urgent cardiac cath Pulmonary toilet Speech/swallow evaluation Transfer to [facility] Subjective Cardiovascular: Reports: no symptoms Respiratory: Reports: no symptoms Gastrointestinal/Abdominal: Reports: no symptoms Genitourinary: Reports: no symptoms Subjective Patient anxious and altered earlier, now calm s/p ativan. Awaiting swallow evaluation today, vitals stable Objective Last 24 Hour Vital Signs Date Time Temp Pulse Resp B/P (MAP) Pulse Ox O2 Delivery O2 Flow Rate FiO2 07/27/18 13:00 74 22 126/41 (69) 100 07/27/18 12:00 78 23 165/60 (95) 100 07/27/18 12:00 Nasal Cannula 2.0 07/27/18 11:00 89 23 151/50 (83) 100 07/27/18 10:00 82 25 154/48 (83) 100 07/27/18 09:00 76 21 147/48 (81) 100 07/27/18 08:43 160/50 07/27/18 08:00 Nasal Cannula 2.0 07/27/18 08:00 98.6 75 24 160/50 (86) 100 98.6 07/27/18 07:00 73 24 118/36 (63) 100 07/27/18 06:00 74 24 141/42 (75) 100 07/27/18 05:00 73 24 126/38 (67) 100 07/27/18 04:00 98.4 81 22 136/41 (72) 100 98.4 07/27/18 04:00 Nasal Cannula 2.0 07/27/18 03:05 84 07/27/18 03:00 85 22 138/81 (100) 100 07/27/18 02:00 83 19 152/48 (82) 100 07/27/18 01:00 87 30 142/52 (82) 100 07/27/18 00:00 Nasal Cannula 2.0 07/27/18 00:00 98.4 89 26 140/47 (78) 99 98.4 07/26/18 23:14 165/93 07/26/18 23:09 87 07/26/18 23:00 97 24 165/93 (117) 99 07/26/18 22:00 84 22 139/45 (76) 100 07/26/18 21:00 78 27 157/58 (91) 100 07/26/18 20:00 Nasal Cannula 2.0 07/26/18 20:00 98.5 79 27 135/66 (89) 99 98.5 07/26/18 19:13 78 07/26/18 19:00 77 18 142/47 (78) 100 07/26/18 18:00 74 18 143/49 (80) 100 07/26/18 17:00 80 18 131/45 (73) 100 07/26/18 16:00 97.2 75 18 128/44 (72) 99 97.2 07/26/18 16:00 Nasal Cannula 2.0 07/26/18 16:00 76 07/26/18 15:55 Nasal Cannula 3.0 32 07/26/18 15:10 68 19 30 07/26/18 15:00 102 18 156/52 (86) 100 07/26/18 14:00 83 18 121/39 (66) 100 General Appearance: no apparent distress EENT: PERRL/EOMI, normal ENT inspection, TMs normal, pharynx normal Neck: non-tender, normal alignment, supple, normal inspection, no JVD Rhythm: NSR Cardiovascular: normal peripheral pulses, normal rate, regular rhythm Respiratory/Chest: chest wall non-tender, lungs clear Abdomen: normal bowel sounds, non tender, soft, no organomegaly, no mass Extremities: normal range of motion, normal inspection 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: 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 aircraft II-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 grossly normal Intake and Output 07/26/18 07/27/18 19:00 07:00 Intake Total 3535 ml 140 ml Output Total 725 ml 331 ml Balance 2810 ml -191 ml IV Total 55 ml 110 ml Tube Feeding 480 ml 0 ml Hemodialysis 3000 ml Other 30 ml Output Urine Total 725 ml 331 ml # Bowel Movements 1 Laboratory Tests Test 07/26/18 15:10 07/27/18 04:17 07/27/18 08:45 Arterial Blood pH 7.385 (7.350-7.450) 7.315 (7.350-7.450) Arterial Blood Partial Pressure CO2 46.0 mmHg (35.0-45.0) H 57.2 mmHg (35.0-45.0) *H Arterial Blood Partial Pressure O2 93.0 mmHg (75.0-100.0) 89.4 mmHg (75.0-100.0) Arterial Blood HCO3 27.0 mmol/L (22.0-26.0) H 28.5 mmol/L (22.0-26.0) H Arterial Blood Oxygen Saturation 96.4 % (95-100) 95.7 % (95-100) Arterial Blood Base Excess 1.6 (-2-2) 1.7 (-2-2) Calvin Test Positive Positive White Blood Count 6.3 K/UL (4.8-10.8) Red Blood Count 2.64 M/UL (4.70-6.10) L Hemoglobin 7.9 G/DL (14.2-18.0) L Hematocrit 25.1 % (42.0-52.0) L Mean Corpuscular Volume 95 FL (80-99) Mean Corpuscular Hemoglobin 30.0 PG (27.0-31.0) Mean Corpuscular Hemoglobin Concent 31.6 G/DL (32.0-36.0) L Red Cell Distribution Width 15.3 % (11.6-14.8) H Platelet Count 147 K/UL (150-450) L Mean Platelet Volume 8.1 FL (6.5-10.1) Neutrophils (%) (Auto) % (45.0-75.0) Lymphocytes (%) (Auto) % (20.0-45.0) Monocytes (%) (Auto) % (1.0-10.0) Eosinophils (%) (Auto) % (0.0-3.0) Basophils (%) (Auto) % (0.0-2.0) Differential Total Cells Counted 100 Neutrophils % (Manual) 69 % (45-75) Lymphocytes % (Manual) 11 % (20-45) L Monocytes % (Manual) 14 % (1-10) H Eosinophils % (Manual) 4 % (0-3) H Basophils % (Manual) 1 % (0-2) Band Neutrophils 1 % (0-8) Platelet Estimate Decreased L Platelet Morphology Normal Hypochromasia 1+ Anisocytosis 1+ Sodium Level 139 MMOL/L (136-145) Potassium Level 4.0 MMOL/L (3.5-5.1) Chloride Level 102 MMOL/L (98-107) Carbon Dioxide Level 30 MMOL/L (21-32) Anion Gap 7 mmol/L (5-15) Blood Urea Nitrogen 55 mg/dL (7-18) H Creatinine 8.3 MG/DL (0.55-1.30) H Estimat Glomerular Filtration Rate 7.9 mL/min (>60) Glucose Level 84 MG/DL (74-106) Calcium Level 8.6 MG/DL (8.5-10.1) Phosphorus Level 5.6 MG/DL (2.5-4.9) H Magnesium Level 2.3 MG/DL (1.8-2.4) Total Bilirubin 0.4 MG/DL (0.2-1.0) Aspartate Amino Transf (AST/SGOT) 18 U/L (15-37) Alanine Aminotransferase (ALT/SGPT) 22 U/L (12-78) Alkaline Phosphatase 108 U/L (46-116) Total Protein 6.2 G/DL (6.4-8.2) L Albumin 2.1 G/DL (3.4-5.0) L Globulin 4.1 g/dL Albumin/Globulin Ratio 0.5 (1.0-2.7) L Random Vancomycin Level 23.6 ug/mL Yimi Luevano MD Jul 27, 2018 13:57
--- NOTE | 2018-07-27 14:14 | General Progress Note ---
Assessment/Plan Problem List: (1) Encephalopathy due to metabolic factor or toxin SNOMED: [id number] Assessment/Plan seroquel 100mg tid the pt lack capacity to make decisions. haldol and ativan im Subjective Date patient seen: Jul 27, 2018 Neurologic/Psychiatric: Reports: anxiety Allergies: Coded Allergies: No Known Allergies (Verified , 11/24/07) UNABLE TO ASSESS (Unverified , 07/15/18) Subjective the pt is more agitated and confused. Objective Last 24 Hour Vital Signs Date Time Temp Pulse Resp B/P (MAP) Pulse Ox O2 Delivery O2 Flow Rate FiO2 07/27/18 13:00 74 22 126/41 (69) 100 07/27/18 12:00 78 23 165/60 (95) 100 07/27/18 12:00 Nasal Cannula 2.0 07/27/18 11:00 89 23 151/50 (83) 100 07/27/18 10:00 82 25 154/48 (83) 100 07/27/18 09:00 76 21 147/48 (81) 100 07/27/18 08:43 160/50 07/27/18 08:00 Nasal Cannula 2.0 07/27/18 08:00 98.6 75 24 160/50 (86) 100 98.6 07/27/18 07:00 73 24 118/36 (63) 100 07/27/18 06:00 74 24 141/42 (75) 100 07/27/18 05:00 73 24 126/38 (67) 100 07/27/18 04:00 98.4 81 22 136/41 (72) 100 98.4 07/27/18 04:00 Nasal Cannula 2.0 07/27/18 03:05 84 07/27/18 03:00 85 22 138/81 (100) 100 07/27/18 02:00 83 19 152/48 (82) 100 07/27/18 01:00 87 30 142/52 (82) 100 07/27/18 00:00 Nasal Cannula 2.0 07/27/18 00:00 98.4 89 26 140/47 (78) 99 98.4 07/26/18 23:14 165/93 07/26/18 23:09 87 07/26/18 23:00 97 24 165/93 (117) 99 07/26/18 22:00 84 22 139/45 (76) 100 07/26/18 21:00 78 27 157/58 (91) 100 07/26/18 20:00 Nasal Cannula 2.0 07/26/18 20:00 98.5 79 27 135/66 (89) 99 98.5 07/26/18 19:13 78 07/26/18 19:00 77 18 142/47 (78) 100 07/26/18 18:00 74 18 143/49 (80) 100 07/26/18 17:00 80 18 131/45 (73) 100 07/26/18 16:00 97.2 75 18 128/44 (72) 99 97.2 07/26/18 16:00 Nasal Cannula 2.0 07/26/18 16:00 76 07/26/18 15:55 Nasal Cannula 3.0 32 07/26/18 15:10 68 19 30 07/26/18 15:00 102 18 156/52 (86) 100 Intake and Output 07/26/18 07/27/18 19:00 07:00 Intake Total 3535 ml 140 ml Output Total 725 ml 331 ml Balance 2810 ml -191 ml IV Total 55 ml 110 ml Tube Feeding 480 ml 0 ml Hemodialysis 3000 ml Other 30 ml Output Urine Total 725 ml 331 ml # Bowel Movements 1 Laboratory Tests 07/26/18 15:10: Arterial Blood pH 7.385, Arterial Blood Partial Pressure CO2 46.0H, Arterial Blood Partial Pressure O2 93.0, Arterial Blood HCO3 27.0H, Arterial Blood Oxygen Saturation 96.4, Arterial Blood Base Excess 1.6, Calvin Test Positive 07/27/18 04:17: White Blood Count 6.3, Red Blood Count 2.64L, Hemoglobin 7.9L, Hematocrit 25.1L , Mean Corpuscular Volume 95, Mean Corpuscular Hemoglobin 30.0, Mean Corpuscular Hemoglobin Concent 31.6L, Red Cell Distribution Width 15.3H, Platelet Count 147L, Mean Platelet Volume 8.1, Neutrophils (%) (Auto) , Lymphocytes (%) (Auto) , Monocytes (%) (Auto) , Eosinophils (%) (Auto) , Basophils (%) (Auto) , Differential Total Cells Counted 100, Neutrophils % ( Manual) 69, Lymphocytes % (Manual) 11L, Monocytes % (Manual) 14H, Eosinophils % (Manual) 4H, Basophils % (Manual) 1, Band Neutrophils 1, Platelet Estimate DecreasedL, Platelet Morphology Normal, Hypochromasia 1+, Anisocytosis 1+, Sodium Level 139, Potassium Level 4.0, Chloride Level 102, Carbon Dioxide Level 30, Anion Gap 7, Blood Urea Nitrogen 55H, Creatinine 8.3H, Estimat Glomerular Filtration Rate 7.9, Glucose Level 84, Calcium Level 8.6, Phosphorus Level 5.6H , Magnesium Level 2.3, Total Bilirubin 0.4, Aspartate Amino Transf (AST/SGOT) 18 , Alanine Aminotransferase (ALT/SGPT) 22, Alkaline Phosphatase 108, Total Protein 6.2L, Albumin 2.1L, Globulin 4.1, Albumin/Globulin Ratio 0.5L, Random Vancomycin Level 23.6 07/27/18 08:45: Arterial Blood pH 7.315L, Arterial Blood Partial Pressure CO2 57.2*H, Arterial Blood Partial Pressure O2 89.4, Arterial Blood HCO3 28.5H, Arterial Blood Oxygen Saturation 95.7, Arterial Blood Base Excess 1.7, Calvin Test Positive Height (Feet): 5 Height (Inches): 8.00 Weight (Pounds): 199 General Appearance: no apparent distress, alert, confused, agitated Tara Ward MD Jul 27, 2018 14:14
--- NOTE | 2018-07-27 15:28 | Infectious Diseases Prog Note ---
Assessment/Plan Assessment/Plan ASSESSMENT AND PLAN: 1. mrsa pna, aspiration pna, sepsis, fevers, proteus uti/streptococcus uti, respiratory failure - vancomycin and zosyn - day # 7 - monitor labs and chest x-ray - watch temps - fever curve better - chest x-ray without change - extubated - clinically improved 2. Respiratory failure, on vent. 3. End-stage renal disease, on hemodialysis. 4. Intensive care unit care. 5. Skin care protocol. 6. Hypertension. 7. Hypertensive kidney disease. 8. Gastroesophageal reflux disease. 9. Diabetes. 10. Hyperlipidemia. 11. Anemia. 12. Dementia. 13. Allergies are negative. 14. Family history is noncontributory. 15. Social history is negative. 16. MAR was noted. 17. Case was discussed with RN. 18. Notes and records were noted. 19. Orders were entered. 20. Continue treatment per primary consultants. Subjective Constitutional: Reports: other - extubated, off vent ; Denies: fever HEENT: Reports: congestion - less Respiratory: Reports: shortness of breath - less Cardiovascular: Denies: chest pain Gastrointestinal/Abdominal: Denies: nausea, vomiting, diarrhea Genitourinary: Reports: other - no fole, + hd Neurologic: Denies: headache Psychiatric: Denies: depression Skin: Denies: rash Hematologic: Denies: bleeding Musculoskeletal: Denies: pain Allergies: Coded Allergies: No Known Allergies (Verified , 11/24/07) UNABLE TO ASSESS (Unverified , 07/15/18) Objective Vital Signs Last 24 Hour Vital Signs Date Time Temp Pulse Resp B/P (MAP) Pulse Ox O2 Delivery O2 Flow Rate FiO2 07/27/18 13:00 74 22 126/41 (69) 100 07/27/18 12:00 78 23 165/60 (95) 100 07/27/18 12:00 Nasal Cannula 2.0 07/27/18 11:00 89 23 151/50 (83) 100 07/27/18 10:00 82 25 154/48 (83) 100 07/27/18 09:00 76 21 147/48 (81) 100 07/27/18 08:43 160/50 07/27/18 08:00 Nasal Cannula 2.0 07/27/18 08:00 98.6 75 24 160/50 (86) 100 98.6 07/27/18 07:00 73 24 118/36 (63) 100 07/27/18 06:00 74 24 141/42 (75) 100 07/27/18 05:00 73 24 126/38 (67) 100 07/27/18 04:00 98.4 81 22 136/41 (72) 100 98.4 07/27/18 04:00 Nasal Cannula 2.0 07/27/18 03:05 84 07/27/18 03:00 85 22 138/81 (100) 100 07/27/18 02:00 83 19 152/48 (82) 100 07/27/18 01:00 87 30 142/52 (82) 100 07/27/18 00:00 Nasal Cannula 2.0 07/27/18 00:00 98.4 89 26 140/47 (78) 99 98.4 07/26/18 23:14 165/93 07/26/18 23:09 87 07/26/18 23:00 97 24 165/93 (117) 99 07/26/18 22:00 84 22 139/45 (76) 100 07/26/18 21:00 78 27 157/58 (91) 100 07/26/18 20:00 Nasal Cannula 2.0 07/26/18 20:00 98.5 79 27 135/66 (89) 99 98.5 07/26/18 19:13 78 07/26/18 19:00 77 18 142/47 (78) 100 07/26/18 18:00 74 18 143/49 (80) 100 07/26/18 17:00 80 18 131/45 (73) 100 07/26/18 16:00 97.2 75 18 128/44 (72) 99 97.2 07/26/18 16:00 Nasal Cannula 2.0 07/26/18 16:00 76 07/26/18 15:55 Nasal Cannula 3.0 32 Height (Feet): 5 Height (Inches): 8.00 Weight (Pounds): 199 General Appearance: no acute distress HEENT: normocephalic, atraumatic, anicteric, EOMI, supple, no JVD Respiratory/Chest: no respiratory distress, no accessory muscle use, crackles/ rales, rhonchi - bilaterally Cardiovascular: normal rate, regular rhythm, no gallop/murmur, no JVD Abdomen: normal bowel sounds, soft, non tender, no organomegaly, non distended Genitourinary: other - no becerra, no cva pain Extremities: no cyanosis Skin: no rash Neurologic/Psychiatric: manager ecommerce II-XII grossly normal, alert, responsive Lymphatic: no neck adenopathy Musculoskeletal: no effusion Objective 07/23 - Chest x-ray - Technique: One view of the chest Comparison: 07/21/2018 Findings: Bilateral basilar parenchymal opacities, left-sided pleural thickening versus fluid are all unchanged. Stable tube and line positions. Impression: Unchanged, over 2 days, findings as above. 07/25 - chest x-ray - IMPRESSION: 1. Persistent patchy bibasilar opacities, most prominent in the left lower lung/retrocardiac region, which may represent subsegmental atelectasis versus infiltrate. 2. No significant change in the prominent interstitial markings. This may be related to mild pulmonary vascular congestion versus interstitial pneumonitis. 3. Persistent small left pleural effusion. Chest -x-ray - 07/27 - Findings: Interim removal of endotracheal and nasogastric tubes. Less optimal inspiration on the current exam. Left lateral pleural thickening persists. Ill-defined interstitial and airspace disease in the left mid and lower lung are probably unchanged allowing for differences and degree of inspiration. Median sternotomy sutures, aortic valve prosthesis, right jugular tunneled dialysis catheter remain. Impression: Interim endotracheal and nasogastric tube removal. Otherwise essentially unchanged over one day, findings as described Microbiology Date/Time Source Procedure Growth Status 07/20/18 20:00 Blood Blood Culture - Final NO GROWTH AFTER 5 DAYS Complete 07/20/18 18:06 Sputum Induced Gram Stain - Final Complete 07/20/18 18:06 Sputum Culture - Final Staphylococcus Aureus - Mrsa Complete 07/23/18 10:50 Urine,Clean Catch Urine Culture - Preliminary Proteus Mirabilis Streptococcus Species Resulted Laboratory Tests Test 07/27/18 04:17 07/27/18 08:45 White Blood Count 6.3 K/UL (4.8-10.8) Red Blood Count 2.64 M/UL (4.70-6.10) L Hemoglobin 7.9 G/DL (14.2-18.0) L Hematocrit 25.1 % (42.0-52.0) L Mean Corpuscular Volume 95 FL (80-99) Mean Corpuscular Hemoglobin 30.0 PG (27.0-31.0) Mean Corpuscular Hemoglobin Concent 31.6 G/DL (32.0-36.0) L Red Cell Distribution Width 15.3 % (11.6-14.8) H Platelet Count 147 K/UL (150-450) L Mean Platelet Volume 8.1 FL (6.5-10.1) Neutrophils (%) (Auto) % (45.0-75.0) Lymphocytes (%) (Auto) % (20.0-45.0) Monocytes (%) (Auto) % (1.0-10.0) Eosinophils (%) (Auto) % (0.0-3.0) Basophils (%) (Auto) % (0.0-2.0) Differential Total Cells Counted 100 Neutrophils % (Manual) 69 % (45-75) Lymphocytes % (Manual) 11 % (20-45) L Monocytes % (Manual) 14 % (1-10) H Eosinophils % (Manual) 4 % (0-3) H Basophils % (Manual) 1 % (0-2) Band Neutrophils 1 % (0-8) Platelet Estimate Decreased L Platelet Morphology Normal Hypochromasia 1+ Anisocytosis 1+ Sodium Level 139 MMOL/L (136-145) Potassium Level 4.0 MMOL/L (3.5-5.1) Chloride Level 102 MMOL/L (98-107) Carbon Dioxide Level 30 MMOL/L (21-32) Anion Gap 7 mmol/L (5-15) Blood Urea Nitrogen 55 mg/dL (7-18) H Creatinine 8.3 MG/DL (0.55-1.30) H Estimat Glomerular Filtration Rate 7.9 mL/min (>60) Glucose Level 84 MG/DL (74-106) Calcium Level 8.6 MG/DL (8.5-10.1) Phosphorus Level 5.6 MG/DL (2.5-4.9) H Magnesium Level 2.3 MG/DL (1.8-2.4) Total Bilirubin 0.4 MG/DL (0.2-1.0) Aspartate Amino Transf (AST/SGOT) 18 U/L (15-37) Alanine Aminotransferase (ALT/SGPT) 22 U/L (12-78) Alkaline Phosphatase 108 U/L (46-116) Total Protein 6.2 G/DL (6.4-8.2) L Albumin 2.1 G/DL (3.4-5.0) L Globulin 4.1 g/dL Albumin/Globulin Ratio 0.5 (1.0-2.7) L Random Vancomycin Level 23.6 ug/mL Arterial Blood pH 7.315 (7.350-7.450) Arterial Blood Partial Pressure CO2 57.2 mmHg (35.0-45.0) *H Arterial Blood Partial Pressure O2 89.4 mmHg (75.0-100.0) Arterial Blood HCO3 28.5 mmol/L (22.0-26.0) H Arterial Blood Oxygen Saturation 95.7 % (95-100) Arterial Blood Base Excess 1.7 (-2-2) Calvin Test Positive Current Medications Medications (Trade) Dose Ordered Sig/Praveen Route PRN Reason Start Time Stop Time Status Last Admin Dose Admin Acetaminophen (Tylenol) 650 mg Q4H PRN ORAL fever 07/20/18 08:15 08/15/18 08:14 07/22/18 12:28 Albuterol/ Ipratropium (Albuterol/ Ipratropium) 3 ml Q4HRT PRN HHN sob 07/24/18 07:00 07/29/18 06:59 Aspirin (ASA) 162 mg DAILY NG 07/24/18 09:00 08/23/18 08:59 07/26/18 08:49 Chlorhexidine Gluconate (Leslie-Hex 2%) 1 applic DAILY@2000 TOPIC 07/26/18 20:00 08/25/18 19:59 07/26/18 19:31 Dextrose (Dextrose 50%) 25 ml Q30M PRN IV Hypoglycemia 07/23/18 10:00 08/22/18 09:54 Dextrose (Dextrose 50%) 50 ml Q30M PRN IV hypoglycemia 07/23/18 10:00 08/22/18 09:59 Epoetin Yao (Procrit (for ESRD on dialysis)) 10,000 units THU-THU-THU SUBQ 07/21/18 21:00 08/15/18 20:59 07/26/18 20:54 Haloperidol Lactate (Haldol) 5 mg Q4H PRN IM Agitation 07/27/18 12:30 08/26/18 12:29 Hydralazine HCl (Apresoline) 10 mg Q4H PRN IV SBP > OR = 160mmHg 07/20/18 15:00 08/19/18 14:59 07/26/18 23:14 Insulin Aspart (NovoLOG) EVERY 6 HOURS SUBQ 07/22/18 00:00 08/16/18 20:59 07/26/18 17:54 Lorazepam (Ativan 2mg/ml 1ml) 1 mg Q4H PRN IM For Anxiety 07/27/18 12:35 08/03/18 12:34 Nitroglycerin (Ntg) 1 patch DAILY TDERMAL 07/21/18 10:30 08/20/18 10:29 07/27/18 08:43 Pantoprazole (Protonix) 40 mg Q12HR IV 07/21/18 21:00 08/19/18 08:59 07/27/18 08:44 Piperacillin Sod/ Tazobactam Sod 2.25 gm/Dextrose 55 ml @ 110 mls/hr Q8H IV 07/25/18 19:30 08/01/18 19:29 07/27/18 12:08 Quetiapine Fumarate (SEROquel) 25 mg Q6H PRN ORAL For Anxiety 07/20/18 08:30 08/15/18 08:29 Quetiapine Fumarate (SEROquel) 100 mg Q8HR ORAL 07/20/18 14:00 08/15/18 13:59 07/26/18 21:45 Sevelamer Carbonate (Renvela) 1,600 mg THREE TIMES A DAY ORAL 07/23/18 13:00 08/15/18 12:59 07/26/18 17:51 Vancomycin HCl (Vanco rx to dose) 1 ea DAILY PRN MISC Per rx protocol 07/25/18 19:00 08/24/18 18:59 Olinda Poon MD Jul 27, 2018 15:28
--- NOTE | 2018-07-27 19:50 | General Progress Note ---
Assessment/Plan Assessment/Plan Acute hypercapnic respiratory failure - possibly 2/2 aspiration pneumonia vs HCAP, extubated yesterday. Stable respiratory status, Pulm following Severe sepsis due to suspected gram negative pneumonia, antibiotics per ID. ESRD on HD, continue HD per Nephrology Metabolic acidosis, resolved Acute on chronic diastolic heart failure, fluid management with HD. Cards following NSTEMI type 2, continue ASA, stress test held for now per Cardiology Acute metabolic encephalopathy superimposed on dementia and psychosis, remains confused and uncooperative, suspect he may be close to baseline. Hypertensive heart and renal disease, continue metoprolol Pancytopenia likely due to BM suppression, Hematology following Diet, continue tube feeds DVT ppx: HSQ, SCDs Subjective Date patient seen: Jul 27, 2018 Time patient seen: 12:00 ROS Limited/Unobtainable: Yes Allergies: Coded Allergies: No Known Allergies (Verified , 11/24/07) UNABLE TO ASSESS (Unverified , 07/15/18) Subjective Medicine followup for multiple medical problems including: Acute hypercapnic respiratory failure due to suspected gram negative pneumonia, acute metabolic encephalopathy, acute on chronic diastolic CHF. Extubated yesterday, remains confused and uncooperative Objective Last 24 Hour Vital Signs Date Time Temp Pulse Resp B/P (MAP) Pulse Ox O2 Delivery O2 Flow Rate FiO2 07/27/18 18:00 75 19 150/84 (106) 100 07/27/18 17:00 77 22 176/58 (97) 100 07/27/18 16:00 65 07/27/18 16:00 Nasal Cannula 2.0 07/27/18 16:00 98.4 65 21 149/47 (81) 100 98.4 07/27/18 15:00 66 21 173/59 (97) 100 07/27/18 14:00 67 22 131/42 (71) 100 07/27/18 13:00 74 22 126/41 (69) 100 07/27/18 12:00 79 07/27/18 12:00 78 23 165/60 (95) 100 07/27/18 12:00 Nasal Cannula 2.0 07/27/18 11:00 89 23 151/50 (83) 100 07/27/18 10:00 82 25 154/48 (83) 100 07/27/18 09:00 76 21 147/48 (81) 100 07/27/18 08:43 160/50 07/27/18 08:00 84 07/27/18 08:00 Nasal Cannula 2.0 07/27/18 08:00 98.6 75 24 160/50 (86) 100 98.6 07/27/18 07:00 73 24 118/36 (63) 100 07/27/18 06:00 74 24 141/42 (75) 100 07/27/18 05:00 73 24 126/38 (67) 100 07/27/18 04:00 98.4 81 22 136/41 (72) 100 98.4 07/27/18 04:00 Nasal Cannula 2.0 07/27/18 03:05 84 07/27/18 03:00 85 22 138/81 (100) 100 07/27/18 02:00 83 19 152/48 (82) 100 07/27/18 01:00 87 30 142/52 (82) 100 07/27/18 00:00 Nasal Cannula 2.0 07/27/18 00:00 98.4 89 26 140/47 (78) 99 98.4 07/26/18 23:14 165/93 07/26/18 23:09 87 07/26/18 23:00 97 24 165/93 (117) 99 07/26/18 22:00 84 22 139/45 (76) 100 07/26/18 21:00 78 27 157/58 (91) 100 07/26/18 20:00 Nasal Cannula 2.0 07/26/18 20:00 98.5 79 27 135/66 (89) 99 98.5 Intake and Output 07/26/18 07/27/18 19:00 07:00 Intake Total 3535 ml 140 ml Output Total 725 ml 331 ml Balance 2810 ml -191 ml IV Total 55 ml 110 ml Tube Feeding 480 ml 0 ml Hemodialysis 3000 ml Other 30 ml Output Urine Total 725 ml 331 ml # Bowel Movements 1 Laboratory Tests 07/27/18 04:17: White Blood Count 6.3, Red Blood Count 2.64L, Hemoglobin 7.9L, Hematocrit 25.1L , Mean Corpuscular Volume 95, Mean Corpuscular Hemoglobin 30.0, Mean Corpuscular Hemoglobin Concent 31.6L, Red Cell Distribution Width 15.3H, Platelet Count 147L, Mean Platelet Volume 8.1, Neutrophils (%) (Auto) , Lymphocytes (%) (Auto) , Monocytes (%) (Auto) , Eosinophils (%) (Auto) , Basophils (%) (Auto) , Differential Total Cells Counted 100, Neutrophils % ( Manual) 69, Lymphocytes % (Manual) 11L, Monocytes % (Manual) 14H, Eosinophils % (Manual) 4H, Basophils % (Manual) 1, Band Neutrophils 1, Platelet Estimate DecreasedL, Platelet Morphology Normal, Hypochromasia 1+, Anisocytosis 1+, Sodium Level 139, Potassium Level 4.0, Chloride Level 102, Carbon Dioxide Level 30, Anion Gap 7, Blood Urea Nitrogen 55H, Creatinine 8.3H, Estimat Glomerular Filtration Rate 7.9, Glucose Level 84, Calcium Level 8.6, Phosphorus Level 5.6H , Magnesium Level 2.3, Total Bilirubin 0.4, Aspartate Amino Transf (AST/SGOT) 18 , Alanine Aminotransferase (ALT/SGPT) 22, Alkaline Phosphatase 108, Total Protein 6.2L, Albumin 2.1L, Globulin 4.1, Albumin/Globulin Ratio 0.5L, Random Vancomycin Level 23.6 07/27/18 08:45: Arterial Blood pH 7.315L, Arterial Blood Partial Pressure CO2 57.2*H, Arterial Blood Partial Pressure O2 89.4, Arterial Blood HCO3 28.5H, Arterial Blood Oxygen Saturation 95.7, Arterial Blood Base Excess 1.7, Calvin Test Positive Height (Feet): 5 Height (Inches): 8.00 Weight (Pounds): 199 General Appearance: alert, confused Cardiovascular: regular rhythm Respiratory/Chest: lungs clear, normal breath sounds Abdomen: non tender, soft Adam Jones MD Jul 27, 2018 19:50
[2018-07-27] MEDS: Dyna-Hex 2% Top Sol 2oz TOPIC SCH (20:23)
[2018-07-28] VITALS (22 sets, daily range): BP systolic 112–181; BP diastolic 34–87
[2018-07-28] MEDS: Piperacillin/Tazobactam 2.25 GM in D5W 55 ML IV SCH ×3 (03:40→19:45)
[2018-07-28 05:43] LABS: HEMATOCRIT 24.6 % (42.0-52.0); HEMOGLOBIN 7.8 G/DL (14.2-18.0); MEAN CORPUSCULAR VOLUME 96 FL (80-99); PLATELET COUNT 139 K/UL (150-450); RED BLOOD COUNT 2.55 M/UL (4.70-6.10); RED CELL DISTRIBUTION WIDTH 15.6 % (11.6-14.8); WHITE BLOOD COUNT 5.6 K/UL (4.8-10.8)
[2018-07-28 06:00] LABS: ALANINE AMINOTRANSFERASE 21 U/L (12-78); ALBUMIN 2.3 G/DL (3.4-5.0); ALBUMIN/GLOBULIN RATIO 0.6 (1.0-2.7); ALKALINE PHOSPHATASE 107 U/L (46-116); ANION GAP 11 mmol/L (5-15); ASPARTATE AMINO TRANSFERASE 21 U/L (15-37); BILIRUBIN,TOTAL 0.3 MG/DL (0.2-1.0); BLOOD UREA NITROGEN 59 mg/dL (7-18); CALCIUM 8.8 MG/DL (8.5-10.1); CARBON DIOXIDE 25 MMOL/L (21-32); CHLORIDE 101 MMOL/L (98-107); CREATININE 8.1 MG/DL (0.55-1.30); PHOSPHORUS 5.7 MG/DL (2.5-4.9); POTASSIUM 4.1 MMOL/L (3.5-5.1); SODIUM 137 MMOL/L (136-145)
[2018-07-28] MEDS: NovoLOG Insulin Flexpen SUBQ SCH ×5 (06:00→23:59)
[2018-07-28] MEDS: Pantoprazole Inj IV SCH ×2 (08:56→20:42)
[2018-07-28] MEDS: Nitroglycerin Patch 0.4mg TDERMAL SCH (08:57)
[2018-07-28] MEDS: Renvela 800mg Pkt ORAL SCH ×3 (08:59→18:21)
[2018-07-28] MEDS: Aspirin Baby 81mg NG SCH (08:59)
--- NOTE | 2018-07-28 09:32 | Pulmonolgy Critical Care Note ---
Critical Care - Asmt/Plan Problems: (1) Acute respiratory failure (2) Encephalopathy (3) Anemia in chronic kidney disease (CKD) (4) Dementia with psychosis (5) ESRD (end stage renal disease) on dialysis Respiratory: monitor respiratory rate, adjust FIO2, CXR Cardiac: continue to monitor HR/BP Renal: F/U I&O Infectious Disease: check cultures Gastrointestinal: continue feedings/current rate Endocrine: monitor blood sugar Hematologic: monitor H/H, transfuse if hgb<8.5 Neurologic: PRN Ativan, keep patient comfortable Affect: PRN ativan Disposition: transfer to Notes Reviewed: cardio, renal Discussed with: consultants, manager of case managementmarketing manager health communications - Objective Last 24 Hour Vital Signs Date Time Temp Pulse Resp B/P (MAP) Pulse Ox O2 Delivery O2 Flow Rate FiO2 07/28/18 08:57 149/47 07/28/18 07:10 68 23 Nasal Cannula 2.0 28 07/28/18 07:10 Nasal Cannula 2.0 28 07/28/18 07:10 99 Nasal Cannula 2.0 28 07/28/18 06:00 97.8 69 22 121/87 (98) 100 97.8 07/28/18 05:00 68 22 119/41 (67) 99 07/28/18 04:00 Nasal Cannula 2.0 07/28/18 04:00 70 22 127/38 (67) 98 07/28/18 04:00 80 07/28/18 03:00 73 21 148/55 (86) 96 07/28/18 02:00 68 18 140/50 (80) 100 07/28/18 01:00 73 18 112/36 (61) 100 07/28/18 00:00 99.1 73 18 172/54 (93) 100 99.1 07/28/18 00:00 Nasal Cannula 2.0 07/27/18 23:00 65 20 152/73 (99) 100 07/27/18 22:00 69 20 149/46 (80) 100 07/27/18 21:00 74 21 175/60 (98) 100 07/27/18 20:00 99.1 72 22 160/52 (88) 100 99.1 07/27/18 20:00 Nasal Cannula 2.0 07/27/18 20:00 76 07/27/18 19:00 Nasal Cannula 2.0 28 07/27/18 19:00 100 Nasal Cannula 2.0 28 07/27/18 19:00 71 23 167/62 (97) 100 07/27/18 18:00 75 19 150/84 (106) 100 07/27/18 17:00 77 22 176/58 (97) 100 07/27/18 16:00 65 07/27/18 16:00 Nasal Cannula 2.0 07/27/18 16:00 98.4 65 21 149/47 (81) 100 98.4 07/27/18 15:00 66 21 173/59 (97) 100 07/27/18 14:00 67 22 131/42 (71) 100 07/27/18 13:00 74 22 126/41 (69) 100 07/27/18 12:00 79 07/27/18 12:00 78 23 165/60 (95) 100 07/27/18 12:00 Nasal Cannula 2.0 07/27/18 11:00 89 23 151/50 (83) 100 07/27/18 10:00 82 25 154/48 (83) 100 Status: awake - confused, on restrains Condition: improving HEENT: atraumatic Neck: full ROM Lungs: clear Heart: HR/BP stable Abdomen: soft, active bowel sounds Extremities: no C/C/E, edema Decubiti: stage Accucheck: 69 Critical Care - Subjective ROS Limited/Unobtainable: Yes Condition: critical EKG Rhythm: Sinus Rhythm FI02: 28 Vent Support Mode: CPAP Vent Tidal Volume: 600 Sputum Amount: None PEEP: 0.0 PIP: 18 Tube Feeding Amount: 0 I&O: Intake and Output 07/27/18 07/28/18 19:00 07:00 Intake Total 110 ml 55 ml Balance 110 ml 55 ml IV Total 110 ml 55 ml Tube Feeding 0 ml # Bowel Movements 2 CXR: LLL effusion, atelectasis ET-Tube: 7.5 ET Position: 22 Labs: Laboratory Tests Test 07/28/18 04:10 07/28/18 08:10 White Blood Count 5.6 K/UL (4.8-10.8) Red Blood Count 2.55 M/UL (4.70-6.10) L Hemoglobin 7.8 G/DL (14.2-18.0) L Hematocrit 24.6 % (42.0-52.0) L Mean Corpuscular Volume 96 FL (80-99) Mean Corpuscular Hemoglobin 30.4 PG (27.0-31.0) Mean Corpuscular Hemoglobin Concent 31.5 G/DL (32.0-36.0) L Red Cell Distribution Width 15.6 % (11.6-14.8) H Platelet Count 139 K/UL (150-450) L Mean Platelet Volume 6.6 FL (6.5-10.1) Neutrophils (%) (Auto) % (45.0-75.0) Lymphocytes (%) (Auto) % (20.0-45.0) Monocytes (%) (Auto) % (1.0-10.0) Eosinophils (%) (Auto) % (0.0-3.0) Basophils (%) (Auto) % (0.0-2.0) Differential Total Cells Counted 100 Neutrophils % (Manual) 53 % (45-75) Lymphocytes % (Manual) 15 % (20-45) L Monocytes % (Manual) 21 % (1-10) H Eosinophils % (Manual) 6 % (0-3) H Basophils % (Manual) 2 % (0-2) Band Neutrophils 3 % (0-8) Nucleated Red Blood Cells 1 /100 WBC Platelet Estimate Decreased L Platelet Morphology Normal Hypochromasia 1+ Anisocytosis 1+ Sodium Level 137 MMOL/L (136-145) Potassium Level 4.1 MMOL/L (3.5-5.1) Chloride Level 101 MMOL/L (98-107) Carbon Dioxide Level 25 MMOL/L (21-32) Anion Gap 11 mmol/L (5-15) Blood Urea Nitrogen 59 mg/dL (7-18) H Creatinine 8.1 MG/DL (0.55-1.30) H Estimat Glomerular Filtration Rate 8.1 mL/min (>60) Glucose Level 72 MG/DL (74-106) L Calcium Level 8.8 MG/DL (8.5-10.1) Phosphorus Level 5.7 MG/DL (2.5-4.9) H Magnesium Level 2.5 MG/DL (1.8-2.4) H Total Bilirubin 0.3 MG/DL (0.2-1.0) Aspartate Amino Transf (AST/SGOT) 21 U/L (15-37) Alanine Aminotransferase (ALT/SGPT) 21 U/L (12-78) Alkaline Phosphatase 107 U/L (46-116) Total Protein 6.4 G/DL (6.4-8.2) Albumin 2.3 G/DL (3.4-5.0) L Globulin 4.1 g/dL Albumin/Globulin Ratio 0.6 (1.0-2.7) L Arterial Blood pH 7.286 (7.350-7.450) Arterial Blood Partial Pressure CO2 60.2 mmHg (35.0-45.0) *H Arterial Blood Partial Pressure O2 110.8 mmHg (75.0-100.0) H Arterial Blood HCO3 28.0 mmol/L (22.0-26.0) H Arterial Blood Oxygen Saturation 97.2 % (95-100) Arterial Blood Base Excess 0.9 (-2-2) Calvin Test Positive Denise Rogers MD Jul 28, 2018 09:32
--- NOTE | 2018-07-28 09:58 | Diagnostic Imaging Report ---
Indication: Dyspnea Technique: One view of the chest Comparison: 07/27/2018 Findings: Right jugular tunneled dialysis catheter remains. Left sided pleural thickening versus fluid remains. Heart remains borderline enlarged. Findings are unchanged Impression: Unchanged, over one day, findings as above.
--- NOTE | 2018-07-28 10:32 | Nephrology Progress Note ---
Assessment/Plan Problem List: (1) Acute respiratory failure Assessment: on presentation- worsened (2) ESRD (end stage renal disease) on dialysis (3) Hyperkalemia (4) CHF (congestive heart failure) (5) Anemia in chronic kidney disease (CKD) Assessment ESRD has permacath hyperkalemia Shortness of breath, CHF NOW ACUTE RESPIRATORY FAILURE , ON VENT Encephalopathy condition: 1) ESRD (end stage renal disease) on dialysis (2) Anemia in chronic kidney disease (CKD) (3) Hypertensive kidney disease (4) Encephalopathy (5) DM (6) Hyperlipemia Plan post extubation care Dialysis 07/26 next 07/28 today DC Lopressor out of ICU after HD optimize cardiac status 2 D echo noted adjust BP meds Anemia work up : ? transfusion if needed adjust BS meds phos binders asa nitrate per orders Subjective ROS Limited/Unobtainable: No Constitutional: Reports: malaise Objective Objective Last 24 Hour Vital Signs Date Time Temp Pulse Resp B/P (MAP) Pulse Ox O2 Delivery O2 Flow Rate FiO2 07/28/18 08:57 149/47 07/28/18 07:10 68 23 Nasal Cannula 2.0 28 07/28/18 07:10 Nasal Cannula 2.0 28 07/28/18 07:10 99 Nasal Cannula 2.0 28 07/28/18 06:00 97.8 69 22 121/87 (98) 100 97.8 07/28/18 05:00 68 22 119/41 (67) 99 07/28/18 04:00 Nasal Cannula 2.0 07/28/18 04:00 70 22 127/38 (67) 98 07/28/18 04:00 80 07/28/18 03:00 73 21 148/55 (86) 96 07/28/18 02:00 68 18 140/50 (80) 100 07/28/18 01:00 73 18 112/36 (61) 100 07/28/18 00:00 99.1 73 18 172/54 (93) 100 99.1 07/28/18 00:00 Nasal Cannula 2.0 07/27/18 23:00 65 20 152/73 (99) 100 07/27/18 22:00 69 20 149/46 (80) 100 07/27/18 21:00 74 21 175/60 (98) 100 07/27/18 20:00 99.1 72 22 160/52 (88) 100 99.1 07/27/18 20:00 Nasal Cannula 2.0 07/27/18 20:00 76 07/27/18 19:00 Nasal Cannula 2.0 28 07/27/18 19:00 100 Nasal Cannula 2.0 28 07/27/18 19:00 71 23 167/62 (97) 100 07/27/18 18:00 75 19 150/84 (106) 100 07/27/18 17:00 77 22 176/58 (97) 100 07/27/18 16:00 65 07/27/18 16:00 Nasal Cannula 2.0 07/27/18 16:00 98.4 65 21 149/47 (81) 100 98.4 07/27/18 15:00 66 21 173/59 (97) 100 07/27/18 14:00 67 22 131/42 (71) 100 07/27/18 13:00 74 22 126/41 (69) 100 07/27/18 12:00 79 07/27/18 12:00 78 23 165/60 (95) 100 07/27/18 12:00 Nasal Cannula 2.0 07/27/18 11:00 89 23 151/50 (83) 100 Intake and Output 07/27/18 07/28/18 19:00 07:00 Intake Total 110 ml 55 ml Balance 110 ml 55 ml IV Total 110 ml 55 ml Tube Feeding 0 ml # Bowel Movements 2 Laboratory Tests 07/28/18 04:10: White Blood Count 5.6, Red Blood Count 2.55L, Hemoglobin 7.8L, Hematocrit 24.6L , Mean Corpuscular Volume 96, Mean Corpuscular Hemoglobin 30.4, Mean Corpuscular Hemoglobin Concent 31.5L, Red Cell Distribution Width 15.6H, Platelet Count 139L, Mean Platelet Volume 6.6, Neutrophils (%) (Auto) , Lymphocytes (%) (Auto) , Monocytes (%) (Auto) , Eosinophils (%) (Auto) , Basophils (%) (Auto) , Differential Total Cells Counted 100, Neutrophils % ( Manual) 53, Lymphocytes % (Manual) 15L, Monocytes % (Manual) 21H, Eosinophils % (Manual) 6H, Basophils % (Manual) 2, Band Neutrophils 3, Nucleated Red Blood Cells 1, Platelet Estimate DecreasedL, Platelet Morphology Normal, Hypochromasia 1+, Anisocytosis 1+, Sodium Level 137, Potassium Level 4.1, Chloride Level 101, Carbon Dioxide Level 25, Anion Gap 11, Blood Urea Nitrogen 59H, Creatinine 8.1H, Estimat Glomerular Filtration Rate 8.1, Glucose Level 72L , Calcium Level 8.8, Phosphorus Level 5.7H, Magnesium Level 2.5H, Total Bilirubin 0.3, Aspartate Amino Transf (AST/SGOT) 21, Alanine Aminotransferase ( ALT/SGPT) 21, Alkaline Phosphatase 107, Total Protein 6.4, Albumin 2.3L, Globulin 4.1, Albumin/Globulin Ratio 0.6L 07/28/18 08:10: Arterial Blood pH 7.286L, Arterial Blood Partial Pressure CO2 60.2*H, Arterial Blood Partial Pressure O2 110.8H, Arterial Blood HCO3 28.0H, Arterial Blood Oxygen Saturation 97.2, Arterial Blood Base Excess 0.9, Calvin Test Positive Height (Feet): 5 Height (Inches): 8.00 Weight (Pounds): 194 General Appearance: no apparent distress EENT: other - remains extubated Cardiovascular: normal rate Respiratory/Chest: decreased breath sounds Abdomen: soft Objective no change Mirza Conde MD Jul 28, 2018 10:32
--- NOTE | 2018-07-28 11:46 | General Progress Note ---
Assessment/Plan Assessment/Plan # Pancytopenia potentially reactive process versus meds related or related to bone marrow process, hepatitis and hiv both reviewed and are negative, has been acute onset since admission --> stable to improving --> us of the abdomen shows splenomegaly++ and can in future repeat as needed --> at this time, does not need a bone marrow biopsy --> on IV iron and epogen sq --> neupogen sq prn if ANC <1000 --> wbc count is better, does not require supportive growth factors --> LABS reviewed # Anemia of chronic disease has been evaluated and reviewed, does have evidence of iron deficiency, has been given iron once d/c --> po iron once discharged --> ok for epogen --> on iv iron --> appreciate renal recs --> on HD prn # ESRD as per nephro --> on hd prn, has received while in hospital # + cardiomegaly with PVC --> seen by cards # Health care associated pneumonia --> Pulm consulted, appreciate recs --> Pt now intubated and on vent since 07/20 --> abx as per ID # Encephalopathy -- can communicate with eyes --> has improved slowly Greatly appreciate consultation! Subjective ROS Limited/Unobtainable: Yes Constitutional: Denies: no symptoms, chills, diaphoresis, fever, malaise, weakness, other HEENT: Denies: no symptoms, eye pain, blurred vision, tearing, double vision, ear pain, ear discharge, nose pain, nose congestion, throat pain, throat swelling, mouth pain, mouth swelling, other Cardiovascular: Denies: no symptoms, chest pain, edema, irregular heart rate, lightheadedness, palpitations, syncope, other Allergies: Coded Allergies: No Known Allergies (Verified , 11/24/07) UNABLE TO ASSESS (Unverified , 07/15/18) Subjective getting HD as per nephro, on a vent, eye communicates+ Objective Last 24 Hour Vital Signs Date Time Temp Pulse Resp B/P (MAP) Pulse Ox O2 Delivery O2 Flow Rate FiO2 07/28/18 10:00 75 15 132/43 (72) 99 07/28/18 09:00 71 24 134/45 (74) 99 07/28/18 08:57 149/47 10/3/18 08:00 76 07/28/18 08:00 72 22 140/47 (78) 99 07/28/18 08:00 Nasal Cannula 2.0 07/28/18 07:10 68 23 Nasal Cannula 2.0 28 07/28/18 07:10 Nasal Cannula 2.0 28 07/28/18 07:10 99 Nasal Cannula 2.0 28 07/28/18 07:00 98.4 69 22 122/39 (66) 99 98.4 07/28/18 06:00 97.8 69 22 121/87 (98) 100 97.8 07/28/18 05:00 68 22 119/41 (67) 99 07/28/18 04:00 Nasal Cannula 2.0 07/28/18 04:00 70 22 127/38 (67) 98 07/28/18 04:00 80 07/28/18 03:00 73 21 148/55 (86) 96 07/28/18 02:00 68 18 140/50 (80) 100 07/28/18 01:00 73 18 112/36 (61) 100 07/28/18 00:00 99.1 73 18 172/54 (93) 100 99.1 07/28/18 00:00 Nasal Cannula 2.0 07/27/18 23:00 65 20 152/73 (99) 100 07/27/18 22:00 69 20 149/46 (80) 100 07/27/18 21:00 74 21 175/60 (98) 100 07/27/18 20:00 99.1 72 22 160/52 (88) 100 99.1 07/27/18 20:00 Nasal Cannula 2.0 07/27/18 20:00 76 07/27/18 19:00 Nasal Cannula 2.0 28 07/27/18 19:00 100 Nasal Cannula 2.0 28 07/27/18 19:00 71 23 167/62 (97) 100 07/27/18 18:00 75 19 150/84 (106) 100 07/27/18 17:00 77 22 176/58 (97) 100 07/27/18 16:00 65 07/27/18 16:00 Nasal Cannula 2.0 07/27/18 16:00 98.4 65 21 149/47 (81) 100 98.4 07/27/18 15:00 66 21 173/59 (97) 100 07/27/18 14:00 67 22 131/42 (71) 100 07/27/18 13:00 74 22 126/41 (69) 100 07/27/18 12:00 79 07/27/18 12:00 78 23 165/60 (95) 100 07/27/18 12:00 Nasal Cannula 2.0 Intake and Output 07/27/18 07/28/18 19:00 07:00 Intake Total 110 ml 55 ml Balance 110 ml 55 ml IV Total 110 ml 55 ml Tube Feeding 0 ml # Bowel Movements 2 Laboratory Tests 07/28/18 04:10: White Blood Count 5.6, Red Blood Count 2.55L, Hemoglobin 7.8L, Hematocrit 24.6L , Mean Corpuscular Volume 96, Mean Corpuscular Hemoglobin 30.4, Mean Corpuscular Hemoglobin Concent 31.5L, Red Cell Distribution Width 15.6H, Platelet Count 139L, Mean Platelet Volume 6.6, Neutrophils (%) (Auto) , Lymphocytes (%) (Auto) , Monocytes (%) (Auto) , Eosinophils (%) (Auto) , Basophils (%) (Auto) , Differential Total Cells Counted 100, Neutrophils % ( Manual) 53, Lymphocytes % (Manual) 15L, Monocytes % (Manual) 21H, Eosinophils % (Manual) 6H, Basophils % (Manual) 2, Band Neutrophils 3, Nucleated Red Blood Cells 1, Platelet Estimate DecreasedL, Platelet Morphology Normal, Hypochromasia 1+, Anisocytosis 1+, Sodium Level 137, Potassium Level 4.1, Chloride Level 101, Carbon Dioxide Level 25, Anion Gap 11, Blood Urea Nitrogen 59H, Creatinine 8.1H, Estimat Glomerular Filtration Rate 8.1, Glucose Level 72L , Calcium Level 8.8, Phosphorus Level 5.7H, Magnesium Level 2.5H, Total Bilirubin 0.3, Aspartate Amino Transf (AST/SGOT) 21, Alanine Aminotransferase ( ALT/SGPT) 21, Alkaline Phosphatase 107, Total Protein 6.4, Albumin 2.3L, Globulin 4.1, Albumin/Globulin Ratio 0.6L 07/28/18 08:10: Arterial Blood pH 7.286L, Arterial Blood Partial Pressure CO2 60.2*H, Arterial Blood Partial Pressure O2 110.8H, Arterial Blood HCO3 28.0H, Arterial Blood Oxygen Saturation 97.2, Arterial Blood Base Excess 0.9, Calvin Test Positive Height (Feet): 5 Height (Inches): 8.00 Weight (Pounds): 194 General Appearance: lethargic EENT: normal ENT inspection Neck: normal alignment Cardiovascular: regular rhythm Respiratory/Chest: lungs clear, other - on vent+++ Abdomen: no organomegaly Extremities: non-tender Edema: 1+ Leg (L), 1+ Leg (R) Neurologic: alert Skin: warm/dry Virgil Ward MD Jul 28, 2018 11:46
--- NOTE | 2018-07-28 13:52 | General Progress Note ---
Assessment/Plan Problem List: (1) Encephalopathy due to metabolic factor or toxin SNOMED: [id number] Status: stable Assessment/Plan seroquel 100mg tid the pt lack capacity to make decisions. haldol and ativan im Subjective Date patient seen: Jul 28, 2018 Neurologic/Psychiatric: Reports: anxiety Allergies: Coded Allergies: No Known Allergies (Verified , 11/24/07) UNABLE TO ASSESS (Unverified , 07/15/18) Subjective the pt is less agitated and confused. Objective Last 24 Hour Vital Signs Date Time Temp Pulse Resp B/P (MAP) Pulse Ox O2 Delivery O2 Flow Rate FiO2 07/28/18 13:15 Nasal Cannula 2.0 07/28/18 10:00 75 15 132/43 (72) 99 07/28/18 09:00 71 24 134/45 (74) 99 07/28/18 08:57 149/47 07/28/18 08:00 76 07/28/18 08:00 72 22 140/47 (78) 99 07/28/18 08:00 Nasal Cannula 2.0 07/28/18 07:10 68 23 Nasal Cannula 2.0 28 07/28/18 07:10 Nasal Cannula 2.0 28 07/28/18 07:10 99 Nasal Cannula 2.0 28 07/28/18 07:00 98.4 69 22 122/39 (66) 99 98.4 07/28/18 06:00 97.8 69 22 121/87 (98) 100 97.8 07/28/18 05:00 68 22 119/41 (67) 99 07/28/18 04:00 Nasal Cannula 2.0 07/28/18 04:00 70 22 127/38 (67) 98 07/28/18 04:00 80 07/28/18 03:00 73 21 148/55 (86) 96 07/28/18 02:00 68 18 140/50 (80) 100 07/28/18 01:00 73 18 112/36 (61) 100 07/28/18 00:00 99.1 73 18 172/54 (93) 100 99.1 07/28/18 00:00 Nasal Cannula 2.0 07/27/18 23:00 65 20 152/73 (99) 100 07/27/18 22:00 69 20 149/46 (80) 100 07/27/18 21:00 74 21 175/60 (98) 100 07/27/18 20:00 99.1 72 22 160/52 (88) 100 99.1 07/27/18 20:00 Nasal Cannula 2.0 07/27/18 20:00 76 07/27/18 19:00 Nasal Cannula 2.0 28 07/27/18 19:00 100 Nasal Cannula 2.0 28 07/27/18 19:00 71 23 167/62 (97) 100 07/27/18 18:00 75 19 150/84 (106) 100 07/27/18 17:00 77 22 176/58 (97) 100 07/27/18 16:00 65 07/27/18 16:00 Nasal Cannula 2.0 07/27/18 16:00 98.4 65 21 149/47 (81) 100 98.4 07/27/18 15:00 66 21 173/59 (97) 100 07/27/18 14:00 67 22 131/42 (71) 100 Intake and Output 07/27/18 07/28/18 19:00 07:00 Intake Total 110 ml 55 ml Balance 110 ml 55 ml IV Total 110 ml 55 ml Tube Feeding 0 ml # Bowel Movements 2 Laboratory Tests 07/28/18 04:10: White Blood Count 5.6, Red Blood Count 2.55L, Hemoglobin 7.8L, Hematocrit 24.6L , Mean Corpuscular Volume 96, Mean Corpuscular Hemoglobin 30.4, Mean Corpuscular Hemoglobin Concent 31.5L, Red Cell Distribution Width 15.6H, Platelet Count 139L, Mean Platelet Volume 6.6, Neutrophils (%) (Auto) , Lymphocytes (%) (Auto) , Monocytes (%) (Auto) , Eosinophils (%) (Auto) , Basophils (%) (Auto) , Differential Total Cells Counted 100, Neutrophils % ( Manual) 53, Lymphocytes % (Manual) 15L, Monocytes % (Manual) 21H, Eosinophils % (Manual) 6H, Basophils % (Manual) 2, Band Neutrophils 3, Nucleated Red Blood Cells 1, Platelet Estimate DecreasedL, Platelet Morphology Normal, Hypochromasia 1+, Anisocytosis 1+, Sodium Level 137, Potassium Level 4.1, Chloride Level 101, Carbon Dioxide Level 25, Anion Gap 11, Blood Urea Nitrogen 59H, Creatinine 8.1H, Estimat Glomerular Filtration Rate 8.1, Glucose Level 72L , Calcium Level 8.8, Phosphorus Level 5.7H, Magnesium Level 2.5H, Total Bilirubin 0.3, Aspartate Amino Transf (AST/SGOT) 21, Alanine Aminotransferase ( ALT/SGPT) 21, Alkaline Phosphatase 107, Total Protein 6.4, Albumin 2.3L, Globulin 4.1, Albumin/Globulin Ratio 0.6L 07/28/18 08:10: Arterial Blood pH 7.286L, Arterial Blood Partial Pressure CO2 60.2*H, Arterial Blood Partial Pressure O2 110.8H, Arterial Blood HCO3 28.0H, Arterial Blood Oxygen Saturation 97.2, Arterial Blood Base Excess 0.9, Calvin Test Positive Height (Feet): 5 Height (Inches): 8.00 Weight (Pounds): 194 General Appearance: confused, agitated Tara Ward MD Jul 28, 2018 13:52
--- NOTE | 2018-07-28 16:15 | General Progress Note ---
Assessment/Plan Assessment/Plan Acute hypercapnic respiratory failure - resolving, Pulm followup appreciated. Severe sepsis due to suspected gram negative pneumonia, antibiotics per ID. ESRD on HD, continue HD per Nephrology Metabolic acidosis, resolved Acute on chronic diastolic heart failure, fluid management with HD. Cards following NSTEMI type 2, continue ASA, stress test held for now per Cardiology Acute metabolic encephalopathy superimposed on dementia and psychosis, remains confused and uncooperative, spoke with next of kin in chart who will come to see the patient today. Continue supportive measures Hypertensive heart and renal disease, continue metoprolol Pancytopenia likely due to BM suppression, Hematology following Diet, continue tube feeds DVT ppx: HSQ, SCDs Subjective Date patient seen: Jul 28, 2018 Time patient seen: 09:45 ROS Limited/Unobtainable: Yes Allergies: Coded Allergies: No Known Allergies (Verified , 11/24/07) UNABLE TO ASSESS (Unverified , 07/15/18) Subjective Medicine followup for multiple medical problems including: Acute hypercapnic respiratory failure due to suspected gram negative pneumonia, acute metabolic encephalopathy, acute on chronic diastolic CHF. He remains confused and uncooperative. Attempted to reach next of kin listed in his chart who are friends, said they visit him in the hospital today. Objective Last 24 Hour Vital Signs Date Time Temp Pulse Resp B/P (MAP) Pulse Ox O2 Delivery O2 Flow Rate FiO2 07/28/18 15:26 Nasal Cannula 2.0 07/28/18 14:00 74 20 150/58 (88) 98 07/28/18 13:15 Nasal Cannula 2.0 07/28/18 13:00 73 21 153/50 (84) 98 07/28/18 12:00 78 07/28/18 12:00 75 24 137/48 (77) 99 07/28/18 12:00 Nasal Cannula 2.0 07/28/18 11:00 74 24 131/49 (76) 97 07/28/18 10:00 75 15 132/43 (72) 99 07/28/18 09:00 71 24 134/45 (74) 99 07/28/18 08:57 149/47 07/28/18 08:00 76 07/28/18 08:00 72 22 140/47 (78) 99 07/28/18 08:00 Nasal Cannula 2.0 07/28/18 07:10 68 23 Nasal Cannula 2.0 28 07/28/18 07:10 Nasal Cannula 2.0 28 07/28/18 07:10 99 Nasal Cannula 2.0 28 07/28/18 07:00 98.4 69 22 122/39 (66) 99 98.4 07/28/18 06:00 97.8 69 22 121/87 (98) 100 97.8 07/28/18 05:00 68 22 119/41 (67) 99 07/28/18 04:00 Nasal Cannula 2.0 07/28/18 04:00 70 22 127/38 (67) 98 07/28/18 04:00 80 07/28/18 03:00 73 21 148/55 (86) 96 07/28/18 02:00 68 18 140/50 (80) 100 07/28/18 01:00 73 18 112/36 (61) 100 07/28/18 00:00 99.1 73 18 172/54 (93) 100 99.1 07/28/18 00:00 Nasal Cannula 2.0 07/27/18 23:00 65 20 152/73 (99) 100 07/27/18 22:00 69 20 149/46 (80) 100 07/27/18 21:00 74 21 175/60 (98) 100 07/27/18 20:00 99.1 72 22 160/52 (88) 100 99.1 07/27/18 20:00 Nasal Cannula 2.0 07/27/18 20:00 76 07/27/18 19:00 Nasal Cannula 2.0 28 07/27/18 19:00 100 Nasal Cannula 2.0 28 07/27/18 19:00 71 23 167/62 (97) 100 07/27/18 18:00 75 19 150/84 (106) 100 07/27/18 17:00 77 22 176/58 (97) 100 Intake and Output 07/27/18 07/28/18 19:00 07:00 Intake Total 110 ml 55 ml Balance 110 ml 55 ml IV Total 110 ml 55 ml Tube Feeding 0 ml # Bowel Movements 2 Laboratory Tests 07/28/18 04:10: White Blood Count 5.6, Red Blood Count 2.55L, Hemoglobin 7.8L, Hematocrit 24.6L , Mean Corpuscular Volume 96, Mean Corpuscular Hemoglobin 30.4, Mean Corpuscular Hemoglobin Concent 31.5L, Red Cell Distribution Width 15.6H, Platelet Count 139L, Mean Platelet Volume 6.6, Neutrophils (%) (Auto) , Lymphocytes (%) (Auto) , Monocytes (%) (Auto) , Eosinophils (%) (Auto) , Basophils (%) (Auto) , Differential Total Cells Counted 100, Neutrophils % ( Manual) 53, Lymphocytes % (Manual) 15L, Monocytes % (Manual) 21H, Eosinophils % (Manual) 6H, Basophils % (Manual) 2, Band Neutrophils 3, Nucleated Red Blood Cells 1, Platelet Estimate DecreasedL, Platelet Morphology Normal, Hypochromasia 1+, Anisocytosis 1+, Sodium Level 137, Potassium Level 4.1, Chloride Level 101, Carbon Dioxide Level 25, Anion Gap 11, Blood Urea Nitrogen 59H, Creatinine 8.1H, Estimat Glomerular Filtration Rate 8.1, Glucose Level 72L , Calcium Level 8.8, Phosphorus Level 5.7H, Magnesium Level 2.5H, Total Bilirubin 0.3, Aspartate Amino Transf (AST/SGOT) 21, Alanine Aminotransferase ( ALT/SGPT) 21, Alkaline Phosphatase 107, Total Protein 6.4, Albumin 2.3L, Globulin 4.1, Albumin/Globulin Ratio 0.6L 07/28/18 08:10: Arterial Blood pH 7.286L, Arterial Blood Partial Pressure CO2 60.2*H, Arterial Blood Partial Pressure O2 110.8H, Arterial Blood HCO3 28.0H, Arterial Blood Oxygen Saturation 97.2, Arterial Blood Base Excess 0.9, Calvin Test Positive Height (Feet): 5 Height (Inches): 8.00 Weight (Pounds): 194 General Appearance: alert, confused Cardiovascular: normal rate, regular rhythm Respiratory/Chest: lungs clear, normal breath sounds, no respiratory distress Abdomen: non tender, soft Adam Jones MD Jul 28, 2018 16:15
[2018-07-28] MEDS: Dyna-Hex 2% Top Sol 2oz TOPIC SCH (19:45)
[2018-07-28] MEDS: Epogen (for ESRD on dialysis) SUBQ SCH (20:43)
[2018-07-28] MEDS ORDERED: Vancomycin 750mg/NS 250ml IVPB SCH (21:00)
[2018-07-28] MEDS ORDERED: Vancomycin 750mg/NS 250ml 250 ML IVPB ONE (21:45)
[2018-07-28] MEDS ORDERED: LORazepam Inj 2mg/ml 1ml IM PRN (22:00)
[2018-07-28] MEDS ORDERED: Haloperidol 5mg/ml Inj IM PRN (22:00)
[2018-07-28] MEDS ORDERED: Albuterol/Ipratropium 3ml neb HHN PRN (23:00)
[2018-07-29] MEDS: Piperacillin/Tazobactam 2.25 GM in D5W 55 ML IV SCH ×3 (03:04→20:47)
[2018-07-29] MEDS: NovoLOG Insulin Flexpen SUBQ SCH ×3 (05:30→17:30)
[2018-07-29 08:00] VITALS: BP 143/58
[2018-07-29 08:59] LABS: ANION GAP 8 mmol/L (5-15); BLOOD UREA NITROGEN 43 mg/dL (7-18); CALCIUM 8.6 MG/DL (8.5-10.1); CARBON DIOXIDE 28 MMOL/L (21-32); CHLORIDE 102 MMOL/L (98-107); CREATININE 7.4 MG/DL (0.55-1.30); SODIUM 138 MMOL/L (136-145)
[2018-07-29] MEDS: Renvela 800mg Pkt ORAL SCH ×3 (09:00→17:30)
[2018-07-29] MEDS ORDERED: Nitroglycerin Patch 0.4mg TDERMAL SCH (09:00)
[2018-07-29] MEDS ORDERED: Aspirin Baby 81mg NG SCH (09:00)
[2018-07-29] MEDS ORDERED: Pantoprazole Inj IV SCH (09:00)
[2018-07-29 09:04] LABS: ALANINE AMINOTRANSFERASE 17 U/L (12-78); ALBUMIN 2.2 G/DL (3.4-5.0); ALBUMIN/GLOBULIN RATIO 0.5 (1.0-2.7); ALKALINE PHOSPHATASE 111 U/L (46-116); ASPARTATE AMINO TRANSFERASE 17 U/L (15-37); BILIRUBIN,TOTAL 0.3 MG/DL (0.2-1.0)
--- NOTE | 2018-07-29 09:20 | General Progress Note ---
Assessment/Plan Assessment/Plan # Pancytopenia potentially reactive process versus meds related or related to bone marrow process, hepatitis and hiv both reviewed and are negative, has been acute onset since admission --> stable to improving --> us of the abdomen shows splenomegaly++ and can in future repeat as needed --> at this time, does not need a bone marrow biopsy --> on IV iron and epogen sq --> neupogen sq prn if ANC <1000 --> wbc count is better, does not require supportive growth factors --> LABS reviewed # Anemia of chronic disease has been evaluated and reviewed, does have evidence of iron deficiency, has been given iron once d/c --> po iron once discharged --> ok for epogen --> on iv iron --> appreciate renal recs --> on HD prn # ESRD as per nephro --> on hd prn, has received while in hospital # + cardiomegaly with PVC --> seen by cards # Health care associated pneumonia --> Pulm consulted, appreciate recs --> Pt now intubated and on vent since 07/20 --> abx as per ID # Encephalopathy -- can communicate with eyes --> has improved slowly Greatly appreciate consultation! Subjective Constitutional: Denies: no symptoms, chills, diaphoresis, fever, malaise, weakness, other HEENT: Denies: no symptoms, eye pain, blurred vision, tearing, double vision, ear pain, ear discharge, nose pain, nose congestion, throat pain, throat swelling, mouth pain, mouth swelling, other Cardiovascular: Denies: no symptoms, chest pain, edema, irregular heart rate, lightheadedness, palpitations, syncope, other Respiratory: Denies: no symptoms, cough, orthopnea, shortness of breath, SOB with excertion, SOB at rest, sputum, stridor, wheezing, other Gastrointestinal/Abdominal: Denies: no symptoms, abdomen distended, abdominal pain, black stools, tarry stools, blood in stool, constipated, diarrhea, difficulty swallowing, nausea, poor appetite, poor fluid intake, rectal bleeding , vomiting, other Genitourinary: Denies: no symptoms, burning, discharge, frequency, flank pain, hematuria, incontinence, pain, urgency, other Neurologic/Psychiatric: Denies: no symptoms, anxiety, depressed, emotional problems, headache, numbness, paresthesia, pre-existing deficit, seizure, tingling, tremors, weakness, other Endocrine: Denies: no symptoms, excessive sweating, flushing, intolerance to cold, intolerance to heat, increased hunger, increased thirst, increased urine, unexplained weight gain, unexplained weight loss, other Allergies: Coded Allergies: No Known Allergies (Verified , 11/24/07) UNABLE TO ASSESS (Unverified , 07/15/18) Subjective getting HD as per nephro, on a vent, communicates++ Objective Last 24 Hour Vital Signs Date Time Temp Pulse Resp B/P (MAP) Pulse Ox O2 Delivery O2 Flow Rate FiO2 07/29/18 08:36 90 07/29/18 04:00 Nasal Cannula 2.0 07/29/18 04:00 94 07/29/18 00:00 Nasal Cannula 2.0 07/29/18 00:00 82 07/28/18 21:00 99.2 88 20 128/40 (69) 98 99.2 07/28/18 20:00 87 25 122/34 (63) 98 07/28/18 20:00 Nasal Cannula 2.0 07/28/18 20:00 70 07/28/18 19:00 87 20 125/38 (67) 96 07/28/18 18:53 Nasal Cannula 2.0 28 07/28/18 18:53 96 Nasal Cannula 2.0 28 07/28/18 18:53 83 20 Nasal Cannula 2.0 28 07/28/18 18:00 87 30 120/34 (62) 95 07/28/18 17:00 82 25 158/43 (81) 99 07/28/18 16:49 173/58 07/28/18 16:00 Nasal Cannula 2.0 07/28/18 16:00 69 07/28/18 16:00 78 21 181/79 (113) 99 07/28/18 15:26 Nasal Cannula 2.0 07/28/18 15:00 98.9 69 24 147/51 (83) 100 98.9 07/28/18 14:00 74 20 150/58 (88) 98 07/28/18 13:15 Nasal Cannula 2.0 07/28/18 13:00 73 21 153/50 (84) 98 07/28/18 12:00 78 07/28/18 12:00 75 24 137/48 (77) 99 07/28/18 12:00 Nasal Cannula 2.0 07/28/18 11:00 74 24 131/49 (76) 97 07/28/18 10:00 75 15 132/43 (72) 99 Intake and Output 07/28/18 07/29/18 19:00 07:00 Intake Total 110 ml Output Total 3000 ml 1 ml Balance -2890 ml -1 ml IV Total 110 ml Output Urine Total 0 ml 1 ml Hemodialysis UF 3000 ml Laboratory Tests 07/28/18 18:20: Random Vancomycin Level 18.6 07/29/18 08:15: Sodium Level 138, Potassium Level 4.0, Chloride Level 102, Carbon Dioxide Level 28, Anion Gap 8, Blood Urea Nitrogen 43H, Creatinine 7.4H, Estimat Glomerular Filtration Rate 9.0, Glucose Level 93, Calcium Level 8.6, Total Bilirubin 0.3, Aspartate Amino Transf (AST/SGOT) 17, Alanine Aminotransferase (ALT/SGPT) 17, Alkaline Phosphatase 111, Total Protein 6.4, Albumin 2.2L, Globulin 4.2, Albumin /Globulin Ratio 0.5L Height (Feet): 5 Height (Inches): 8.00 Weight (Pounds): 204 General Appearance: alert EENT: TMs normal Neck: normal alignment Cardiovascular: normal rate Respiratory/Chest: chest wall non-tender Abdomen: normal bowel sounds Extremities: non-tender Edema: 1+ Leg (L), 1+ Leg (R) Neurologic: alert Skin: warm/dry Virgil Ward MD Jul 29, 2018 09:20
--- NOTE | 2018-07-29 10:42 | Pulmonology Progress Note ---
Assessment/Plan Problems: (1) Encephalopathy (2) Anemia in chronic kidney disease (CKD) (3) ESRD (end stage renal disease) on dialysis (4) HTN (hypertension) (5) Diabetes mellitus Assessment/Plan dc all sedating agents transfuse prbc today cxr improvng, LLL infiltrate, effusion sliding scale try to dc restrains dvt prophylaxis. Subjective Interval Events: somnolent Allergies: Coded Allergies: No Known Allergies (Verified , 11/24/07) UNABLE TO ASSESS (Unverified , 07/15/18) Objective Last 24 Hour Vital Signs Date Time Temp Pulse Resp B/P (MAP) Pulse Ox O2 Delivery O2 Flow Rate FiO2 07/29/18 09:00 143/58 07/29/18 08:36 90 07/29/18 08:00 Nasal Cannula 2.0 07/29/18 04:00 Nasal Cannula 2.0 07/29/18 04:00 94 07/29/18 00:00 Nasal Cannula 2.0 07/29/18 00:00 82 07/28/18 21:00 99.2 88 20 128/40 (69) 98 99.2 07/28/18 20:00 87 25 122/34 (63) 98 07/28/18 20:00 Nasal Cannula 2.0 07/28/18 20:00 70 07/28/18 19:00 87 20 125/38 (67) 96 07/28/18 18:53 Nasal Cannula 2.0 28 07/28/18 18:53 96 Nasal Cannula 2.0 28 07/28/18 18:53 83 20 Nasal Cannula 2.0 28 07/28/18 18:00 87 30 120/34 (62) 95 07/28/18 17:00 82 25 158/43 (81) 99 07/28/18 16:49 173/58 07/28/18 16:00 Nasal Cannula 2.0 07/28/18 16:00 69 07/28/18 16:00 78 21 181/79 (113) 99 07/28/18 15:26 Nasal Cannula 2.0 07/28/18 15:00 98.9 69 24 147/51 (83) 100 98.9 07/28/18 14:00 74 20 150/58 (88) 98 07/28/18 13:15 Nasal Cannula 2.0 07/28/18 13:00 73 21 153/50 (84) 98 07/28/18 12:00 78 07/28/18 12:00 75 24 137/48 (77) 99 07/28/18 12:00 Nasal Cannula 2.0 07/28/18 11:00 74 24 131/49 (76) 97 Intake and Output 07/28/18 07/29/18 19:00 07:00 Intake Total 110 ml Output Total 3000 ml 1 ml Balance -2890 ml -1 ml IV Total 110 ml Output Urine Total 0 ml 1 ml Hemodialysis UF 3000 ml General Appearance: WD/WN HEENT: normocephalic, atraumatic, PERRL Respiratory/Chest: lungs clear Cardiovascular: normal peripheral pulses, normal rate Abdomen: normal bowel sounds, no organomegaly Genitourinary: normal external genitalia Extremities: no cyanosis 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, abnormal gait Laboratory Tests 07/28/18 18:20: Random Vancomycin Level 18.6 07/29/18 08:15: Sodium Level 138, Potassium Level 4.0, Chloride Level 102, Carbon Dioxide Level 28, Anion Gap 8, Blood Urea Nitrogen 43H, Creatinine 7.4H, Estimat Glomerular Filtration Rate 9.0, Glucose Level 93, Calcium Level 8.6, Total Bilirubin 0.3, Aspartate Amino Transf (AST/SGOT) 17, Alanine Aminotransferase (ALT/SGPT) 17, Alkaline Phosphatase 111, Total Protein 6.4, Albumin 2.2L, Globulin 4.2, Albumin /Globulin Ratio 0.5L Current Medications Medications (Trade) Dose Ordered Sig/Praveen Route PRN Reason Start Time Stop Time Status Last Admin Dose Admin Acetaminophen (Tylenol) 650 mg Q4H PRN ORAL fever 07/28/18 22:00 08/27/18 21:59 Aspirin (ASA) 162 mg DAILY NG 07/29/18 09:00 08/23/18 08:59 Chlorhexidine Gluconate (Leslie-Hex 2%) 1 applic DAILY@1999 TOPIC 07/29/18 20:00 08/25/18 19:59 Dextrose (Dextrose 50%) 25 ml Q30M PRN IV Hypoglycemia 07/28/18 22:00 08/22/18 09:54 Dextrose (Dextrose 50%) 50 ml Q30M PRN IV hypoglycemia 07/28/18 22:00 08/22/18 09:59 Epoetin Yao (Procrit (for ESRD on dialysis)) 10,000 units THU-THU-THU SUBQ 07/30/18 21:00 08/15/18 20:59 Haloperidol Lactate (Haldol) 5 mg Q4H PRN IM Agitation 07/28/18 22:00 08/27/18 21:59 Hydralazine HCl (Apresoline) 10 mg Q4H PRN IV SBP > OR = 160mmHg 07/28/18 22:00 08/19/18 21:59 Insulin Aspart (NovoLOG) EVERY 6 HOURS SUBQ 07/29/18 00:00 08/16/18 20:59 Lorazepam (Ativan 2mg/ml 1ml) 1 mg Q4H PRN IM For Anxiety 07/28/18 22:00 08/04/18 21:59 07/29/18 03:09 Nitroglycerin (Ntg) 1 patch DAILY TDERMAL 07/29/18 09:00 08/20/18 10:29 07/29/18 09:00 Pantoprazole (Protonix) 40 mg Q12HR IV 07/29/18 09:00 08/19/18 08:59 07/29/18 09:00 Piperacillin Sod/ Tazobactam Sod 2.25 gm/Dextrose 55 ml @ 110 mls/hr Q8H IV 07/29/18 03:30 08/01/18 19:29 07/29/18 03:04 Quetiapine Fumarate (SEROquel) 25 mg Q6H PRN ORAL For Anxiety 07/28/18 22:00 08/27/18 21:59 Quetiapine Fumarate (SEROquel) 100 mg Q8HR ORAL 07/28/18 22:00 08/15/18 13:59 07/29/18 05:31 Sevelamer Carbonate (Renvela) 1,600 mg THREE TIMES A DAY ORAL 07/29/18 09:00 08/15/18 12:59 Vancomycin HCl (Vanco rx to dose) 1 ea DAILY PRN MISC Per rx protocol 07/29/18 09:00 08/24/18 18:59 Denise Rogers MD Jul 29, 2018 10:42
--- NOTE | 2018-07-29 11:14 | Nephrology Progress Note ---
Assessment/Plan Problem List: (1) Acute respiratory failure Assessment: on presentation- worsened (2) ESRD (end stage renal disease) on dialysis (3) Hyperkalemia (4) CHF (congestive heart failure) (5) Anemia in chronic kidney disease (CKD) Assessment ESRD has permacath hyperkalemia Shortness of breath, CHF NOW ACUTE RESPIRATORY FAILURE , ON VENT Encephalopathy condition: 1) ESRD (end stage renal disease) on dialysis (2) Anemia in chronic kidney disease (CKD) (3) Hypertensive kidney disease (4) Encephalopathy (5) DM (6) Hyperlipemia Plan post extubation care Dialysis next 07/30 DC Lopressor in SHARAD now consider transfusion optimize cardiac status 2 D echo noted adjust BP meds adjust BS meds phos binders asa nitrate per orders Subjective ROS Limited/Unobtainable: No Constitutional: Reports: malaise Objective Objective Last 24 Hour Vital Signs Date Time Temp Pulse Resp B/P (MAP) Pulse Ox O2 Delivery O2 Flow Rate FiO2 07/29/18 09:00 143/58 07/29/18 08:36 90 07/29/18 08:00 Nasal Cannula 2.0 07/29/18 04:00 Nasal Cannula 2.0 07/29/18 04:00 94 07/29/18 00:00 Nasal Cannula 2.0 07/29/18 00:00 82 07/28/18 21:00 99.2 88 20 128/40 (69) 98 99.2 07/28/18 20:00 87 25 122/34 (63) 98 07/28/18 20:00 Nasal Cannula 2.0 07/28/18 20:00 70 07/28/18 19:00 87 20 125/38 (67) 96 07/28/18 18:53 Nasal Cannula 2.0 28 07/28/18 18:53 96 Nasal Cannula 2.0 28 07/28/18 18:53 83 20 Nasal Cannula 2.0 28 07/28/18 18:00 87 30 120/34 (62) 95 07/28/18 17:00 82 25 158/43 (81) 99 07/28/18 16:49 173/58 07/28/18 16:00 Nasal Cannula 2.0 07/28/18 16:00 69 07/28/18 16:00 78 21 181/79 (113) 99 07/28/18 15:26 Nasal Cannula 2.0 07/28/18 15:00 98.9 69 24 147/51 (83) 100 98.9 07/28/18 14:00 74 20 150/58 (88) 98 07/28/18 13:15 Nasal Cannula 2.0 07/28/18 13:00 73 21 153/50 (84) 98 07/28/18 12:00 78 07/28/18 12:00 75 24 137/48 (77) 99 07/28/18 12:00 Nasal Cannula 2.0 Intake and Output 07/28/18 07/29/18 19:00 07:00 Intake Total 110 ml Output Total 3000 ml 1 ml Balance -2890 ml -1 ml IV Total 110 ml Output Urine Total 0 ml 1 ml Hemodialysis UF 3000 ml Laboratory Tests 07/28/18 18:20: Random Vancomycin Level 18.6 07/29/18 08:15: Sodium Level 138, Potassium Level 4.0, Chloride Level 102, Carbon Dioxide Level 28, Anion Gap 8, Blood Urea Nitrogen 43H, Creatinine 7.4H, Estimat Glomerular Filtration Rate 9.0, Glucose Level 93, Calcium Level 8.6, Total Bilirubin 0.3, Aspartate Amino Transf (AST/SGOT) 17, Alanine Aminotransferase (ALT/SGPT) 17, Alkaline Phosphatase 111, Total Protein 6.4, Albumin 2.2L, Globulin 4.2, Albumin /Globulin Ratio 0.5L Height (Feet): 5 Height (Inches): 8.00 Weight (Pounds): 204 General Appearance: no apparent distress Cardiovascular: tachycardia - slightly Respiratory/Chest: decreased breath sounds Abdomen: distended Objective no change Mirza Conde MD Jul 29, 2018 11:14
[2018-07-29 12:00] VITALS: BP 136/83
--- NOTE | 2018-07-29 15:12 | Diagnostic Imaging Report ---
Indication: Dysphasia Procedure and findings: Real-time fluoroscopic imaging performed in a lateral projection in conjunction with the speech pathologist evaluation. Variable consistencies of barium given per mouth. Findings: Significant abnormalities of both oral and pharyngeal phases of swallowing are demonstrated. Total fluoroscopic time 176 seconds. Trace laryngeal penetration was demonstrated as well as moderate residual within the pharynx. No aspiration appreciated. Abnormal video swallow. Please refer to speech pathology evaluation for more information.
[2018-07-29 16:00] VITALS: BP 158/80
--- NOTE | 2018-07-29 16:13 | General Progress Note ---
Progress Note Progress Note pt needs blood transfusion. he doesnt have anybody ti sign his consents. he is not capable signing himself. Denise Rogers MD Jul 29, 2018 16:13
--- NOTE | 2018-07-29 16:47 | General Progress Note ---
Assessment/Plan Assessment/Plan Acute hypercapnic respiratory failure - resolving, Pulm following Severe sepsis due to suspected gram negative pneumonia, can likely transition to oral antibiotic soon. ESRD on HD, continue HD per Nephrology Metabolic acidosis, resolved Acute on chronic diastolic heart failure, fluid management with HD. Cards following NSTEMI type 2, continue ASA, stress test held for now per Cardiology Acute metabolic encephalopathy superimposed on dementia and psychosis, suspect he is close to baseline mentation. Continue supportive measures. Hypertensive heart and renal disease, continue metoprolol Pancytopenia likely due to BM suppression, Hematology following Diet, continue tube feeds DVT ppx: HSQ, SCDs Subjective Date patient seen: Jul 29, 2018 Time patient seen: 10:20 ROS Limited/Unobtainable: Yes Allergies: Coded Allergies: No Known Allergies (Verified , 11/24/07) UNABLE TO ASSESS (Unverified , 07/15/18) Subjective Medicine followup for multiple medical problems including: Acute hypercapnic respiratory failure due to suspected gram negative pneumonia, acute metabolic encephalopathy, acute on chronic diastolic CHF. Remains confused. No new issues overnight per nursing. Spoke with Dr. Rogers, plan for downgrade to M/S. Objective Last 24 Hour Vital Signs Date Time Temp Pulse Resp B/P (MAP) Pulse Ox O2 Delivery O2 Flow Rate FiO2 07/29/18 16:20 87 07/29/18 16:00 Nasal Cannula 2.0 07/29/18 13:31 86 07/29/18 12:00 Nasal Cannula 2.0 07/29/18 09:00 143/58 07/29/18 08:36 90 07/29/18 08:00 Nasal Cannula 2.0 07/29/18 04:00 Nasal Cannula 2.0 07/29/18 04:00 94 07/29/18 00:00 Nasal Cannula 2.0 07/29/18 00:00 82 07/28/18 21:00 99.2 88 20 128/40 (69) 98 99.2 07/28/18 20:00 87 25 122/34 (63) 98 07/28/18 20:00 Nasal Cannula 2.0 07/28/18 20:00 70 07/28/18 19:00 87 20 125/38 (67) 96 07/28/18 18:53 Nasal Cannula 2.0 28 07/28/18 18:53 96 Nasal Cannula 2.0 28 07/28/18 18:53 83 20 Nasal Cannula 2.0 28 07/28/18 18:00 87 30 120/34 (62) 95 07/28/18 17:00 82 25 158/43 (81) 99 07/28/18 16:49 173/58 Intake and Output 07/28/18 07/29/18 19:00 07:00 Intake Total 110 ml Output Total 3000 ml 1 ml Balance -2890 ml -1 ml IV Total 110 ml Output Urine Total 0 ml 1 ml Hemodialysis UF 3000 ml Laboratory Tests 07/28/18 18:20: Random Vancomycin Level 18.6 07/29/18 08:15: Sodium Level 138, Potassium Level 4.0, Chloride Level 102, Carbon Dioxide Level 28, Anion Gap 8, Blood Urea Nitrogen 43H, Creatinine 7.4H, Estimat Glomerular Filtration Rate 9.0, Glucose Level 93, Calcium Level 8.6, Phosphorus Level 5.2H , Total Bilirubin 0.3, Aspartate Amino Transf (AST/SGOT) 17, Alanine Aminotransferase (ALT/SGPT) 17, Alkaline Phosphatase 111, Total Protein 6.4, Albumin 2.2L, Globulin 4.2, Albumin/Globulin Ratio 0.5L Height (Feet): 5 Height (Inches): 8.00 Weight (Pounds): 204 General Appearance: lethargic, confused Cardiovascular: normal rate, regular rhythm Respiratory/Chest: lungs clear, normal breath sounds Abdomen: soft Adam Jones MD Jul 29, 2018 16:47
--- NOTE | 2018-07-29 16:58 | Infectious Diseases Prog Note ---
Assessment/Plan Assessment/Plan ASSESSMENT AND PLAN: 1. mrsa pna, aspiration pna, sepsis, fevers, proteus uti/streptococcus uti, respiratory failure - vancomycin and zosyn - day # 9, plan on 14 day treatment course (longer treatment course since patient was septic and respiratory failure) - monitor labs and chest x-ray - watch temps - fever curve better - chest x-ray stable - extubated - clinically improved 2. Respiratory failure, on vent. 3. End-stage renal disease, on hemodialysis. 4. Intensive care unit care. 5. Skin care protocol. 6. Hypertension. 7. Hypertensive kidney disease. 8. Gastroesophageal reflux disease. 9. Diabetes. 10. Hyperlipidemia. 11. Anemia. 12. Dementia. 13. Allergies are negative. 14. Family history is noncontributory. 15. Social history is negative. 16. MAR was noted. 17. Case was discussed with RN. 18. Notes and records were noted. 19. Orders were entered. 20. Continue treatment per primary consultants. Subjective Constitutional: Reports: fatigue; Denies: fever HEENT: Denies: congestion Respiratory: Denies: shortness of breath Cardiovascular: Denies: chest pain Gastrointestinal/Abdominal: Denies: nausea, vomiting, diarrhea Genitourinary: Reports: other - + becerra Neurologic: Denies: headache Psychiatric: Denies: depression Skin: Denies: rash Hematologic: Denies: bleeding Musculoskeletal: Denies: pain Allergies: Coded Allergies: No Known Allergies (Verified , 11/24/07) UNABLE TO ASSESS (Unverified , 07/15/18) Objective Vital Signs Last 24 Hour Vital Signs Date Time Temp Pulse Resp B/P (MAP) Pulse Ox O2 Delivery O2 Flow Rate FiO2 07/29/18 16:20 87 07/29/18 16:00 Nasal Cannula 2.0 07/29/18 13:31 86 07/29/18 12:00 Nasal Cannula 2.0 07/29/18 09:00 143/58 07/29/18 08:36 90 07/29/18 08:00 Nasal Cannula 2.0 07/29/18 04:00 Nasal Cannula 2.0 07/29/18 04:00 94 07/29/18 00:00 Nasal Cannula 2.0 07/29/18 00:00 82 07/28/18 21:00 99.2 88 20 128/40 (69) 98 99.2 07/28/18 20:00 87 25 122/34 (63) 98 07/28/18 20:00 Nasal Cannula 2.0 07/28/18 20:00 70 07/28/18 19:00 87 20 125/38 (67) 96 07/28/18 18:53 Nasal Cannula 2.0 28 07/28/18 18:53 96 Nasal Cannula 2.0 28 07/28/18 18:53 83 20 Nasal Cannula 2.0 28 07/28/18 18:00 87 30 120/34 (62) 95 07/28/18 17:00 82 25 158/43 (81) 99 07/28/18 16:49 173/58 Height (Feet): 5 Height (Inches): 8.00 Weight (Pounds): 204 General Appearance: no acute distress HEENT: normocephalic, atraumatic, anicteric Respiratory/Chest: crackles/rales, rhonchi - bilaterally Cardiovascular: normal rate, regular rhythm, no gallop/murmur, no JVD Abdomen: normal bowel sounds, soft, non tender, no organomegaly, non distended Genitourinary: other - no becerra, no cva pain Extremities: no cyanosis Skin: no rash 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 Stable tube and line positions. Impression: Unchanged, over 2 days, findings as above. 07/25 - chest x-ray - IMPRESSION: 1. Persistent patchy bibasilar opacities, most prominent in the left lower lung/retrocardiac region, which may represent subsegmental atelectasis versus infiltrate. 2. No significant change in the prominent interstitial markings. This may be related to mild pulmonary vascular congestion versus interstitial pneumonitis. 3. Persistent small left pleural effusion. Chest -x-ray - 07/27 - Findings: Interim removal of endotracheal and nasogastric tubes. Less optimal inspiration on the current exam. Left lateral pleural thickening persists. Ill-defined interstitial and airspace disease in the left mid and lower lung are probably unchanged allowing for differences and degree of inspiration. Median sternotomy sutures, aortic valve prosthesis, right jugular tunneled dialysis catheter remain. Impression: Interim endotracheal and nasogastric tube removal. Otherwise essentially unchanged over one day, findings as described Chest x-ray - 07/28 - Comparison: 07/27/2018 Findings: Right jugular tunneled dialysis catheter remains. Left sided pleural thickening versus fluid remains. Heart remains borderline enlarged. Findings are unchanged Impression: Unchanged, over one day, findings as above. Microbiology Date/Time Source Procedure Growth Status 07/20/18 20:00 Blood Blood Culture - Final NO GROWTH AFTER 5 DAYS Complete 07/20/18 18:06 Sputum Induced Gram Stain - Final Complete 07/20/18 18:06 Sputum Culture - Final Staphylococcus Aureus - Mrsa Complete 07/23/18 10:50 Urine,Clean Catch Urine Culture - Final Proteus Mirabilis Enterococcus Faecalis Complete Labs Test 07/27/18 04:17 07/27/18 08:45 07/28/18 04:10 07/28/18 08:10 White Blood Count 6.3 K/UL (4.8-10.8) 5.6 K/UL (4.8-10.8) Red Blood Count 2.64 M/UL (4.70-6.10) 2.55 M/UL (4.70-6.10) Hemoglobin 7.9 G/DL (14.2-18.0) 7.8 G/DL (14.2-18.0) Hematocrit 25.1 % (42.0-52.0) 24.6 % (42.0-52.0) Mean Corpuscular Volume 95 FL (80-99) 96 FL (80-99) Mean Corpuscular Hemoglobin 30.0 PG (27.0-31.0) 30.4 PG (27.0-31.0) Mean Corpuscular Hemoglobin Concent 31.6 G/DL (32.0-36.0) 31.5 G/DL (32.0-36.0) Red Cell Distribution Width 15.3 % (11.6-14.8) 15.6 % (11.6-14.8) Platelet Count 147 K/UL (150-450) 139 K/UL (150-450) Mean Platelet Volume 8.1 FL (6.5-10.1) 6.6 FL (6.5-10.1) Neutrophils (%) (Auto) % (45.0-75.0) % (45.0-75.0) Lymphocytes (%) (Auto) % (20.0-45.0) % (20.0-45.0) Monocytes (%) (Auto) % (1.0-10.0) % (1.0-10.0) Eosinophils (%) (Auto) % (0.0-3.0) % (0.0-3.0) Basophils (%) (Auto) % (0.0-2.0) % (0.0-2.0) Differential Total Cells Counted 100 100 Neutrophils % (Manual) 69 % (45-75) 53 % (45-75) Lymphocytes % (Manual) 11 % (20-45) 15 % (20-45) Monocytes % (Manual) 14 % (1-10) 21 % (1-10) Eosinophils % (Manual) 4 % (0-3) 6 % (0-3) Basophils % (Manual) 1 % (0-2) 2 % (0-2) Band Neutrophils 1 % (0-8) 3 % (0-8) Platelet Estimate Decreased Decreased Platelet Morphology Normal Normal Hypochromasia 1+ 1+ Anisocytosis 1+ 1+ Sodium Level 139 MMOL/L (136-145) 137 MMOL/L (136-145) Potassium Level 4.0 MMOL/L (3.5-5.1) 4.1 MMOL/L (3.5-5.1) Chloride Level 102 MMOL/L (98-107) 101 MMOL/L (98-107) Carbon Dioxide Level 30 MMOL/L (21-32) 25 MMOL/L (21-32) Anion Gap 7 mmol/L (5-15) 11 mmol/L (5-15) Blood Urea Nitrogen 55 mg/dL (7-18) 59 mg/dL (7-18) Creatinine 8.3 MG/DL (0.55-1.30) 8.1 MG/DL (0.55-1.30) Estimat Glomerular Filtration Rate 7.9 mL/min (>60) 8.1 mL/min (>60) Glucose Level 84 MG/DL (74-106) 72 MG/DL (74-106) Calcium Level 8.6 MG/DL (8.5-10.1) 8.8 MG/DL (8.5-10.1) Phosphorus Level 5.6 MG/DL (2.5-4.9) 5.7 MG/DL (2.5-4.9) Magnesium Level 2.3 MG/DL (1.8-2.4) 2.5 MG/DL (1.8-2.4) Total Bilirubin 0.4 MG/DL (0.2-1.0) 0.3 MG/DL (0.2-1.0) Aspartate Amino Transf (AST/SGOT) 18 U/L (15-37) 21 U/L (15-37) Alanine Aminotransferase (ALT/SGPT) 22 U/L (12-78) 21 U/L (12-78) Alkaline Phosphatase 108 U/L (46-116) 107 U/L (46-116) Total Protein 6.2 G/DL (6.4-8.2) 6.4 G/DL (6.4-8.2) Albumin 2.1 G/DL (3.4-5.0) 2.3 G/DL (3.4-5.0) Globulin 4.1 g/dL 4.1 g/dL Albumin/Globulin Ratio 0.5 (1.0-2.7) 0.6 (1.0-2.7) Random Vancomycin Level 23.6 ug/mL Arterial Blood pH 7.315 (7.350-7.450) 7.286 (7.350-7.450) Arterial Blood Partial Pressure CO2 57.2 mmHg (35.0-45.0) 60.2 mmHg (35.0-45.0) Arterial Blood Partial Pressure O2 89.4 mmHg (75.0-100.0) 110.8 mmHg (75.0-100.0) Arterial Blood HCO3 28.5 mmol/L (22.0-26.0) 28.0 mmol/L (22.0-26.0) Arterial Blood Oxygen Saturation 95.7 % (95-100) 97.2 % (95-100) Arterial Blood Base Excess 1.7 (-2-2) 0.9 (-2-2) Calvin Test Positive Positive Nucleated Red Blood Cells 1 /100 WBC Test 07/28/18 18:20 07/29/18 08:15 Random Vancomycin Level 18.6 ug/mL Sodium Level 138 MMOL/L (136-145) Potassium Level 4.0 MMOL/L (3.5-5.1) Chloride Level 102 MMOL/L (98-107) Carbon Dioxide Level 28 MMOL/L (21-32) Anion Gap 8 mmol/L (5-15) Blood Urea Nitrogen 43 mg/dL (7-18) Creatinine 7.4 MG/DL (0.55-1.30) Estimat Glomerular Filtration Rate 9.0 mL/min (>60) Glucose Level 93 MG/DL (74-106) Calcium Level 8.6 MG/DL (8.5-10.1) Phosphorus Level 5.2 MG/DL (2.5-4.9) Total Bilirubin 0.3 MG/DL (0.2-1.0) Aspartate Amino Transf (AST/SGOT) 17 U/L (15-37) Alanine Aminotransferase (ALT/SGPT) 17 U/L (12-78) Alkaline Phosphatase 111 U/L (46-116) Total Protein 6.4 G/DL (6.4-8.2) Albumin 2.2 G/DL (3.4-5.0) Globulin 4.2 g/dL Albumin/Globulin Ratio 0.5 (1.0-2.7) Laboratory Tests Test 07/28/18 18:20 07/29/18 08:15 Random Vancomycin Level 18.6 ug/mL Sodium Level 138 MMOL/L (136-145) Potassium Level 4.0 MMOL/L (3.5-5.1) Chloride Level 102 MMOL/L (98-107) Carbon Dioxide Level 28 MMOL/L (21-32) Anion Gap 8 mmol/L (5-15) Blood Urea Nitrogen 43 mg/dL (7-18) H Creatinine 7.4 MG/DL (0.55-1.30) H Estimat Glomerular Filtration Rate 9.0 mL/min (>60) Glucose Level 93 MG/DL (74-106) Calcium Level 8.6 MG/DL (8.5-10.1) Phosphorus Level 5.2 MG/DL (2.5-4.9) H Total Bilirubin 0.3 MG/DL (0.2-1.0) Aspartate Amino Transf (AST/SGOT) 17 U/L (15-37) Alanine Aminotransferase (ALT/SGPT) 17 U/L (12-78) Alkaline Phosphatase 111 U/L (46-116) Total Protein 6.4 G/DL (6.4-8.2) Albumin 2.2 G/DL (3.4-5.0) L Globulin 4.2 g/dL Albumin/Globulin Ratio 0.5 (1.0-2.7) L Current Medications Medications (Trade) Dose Ordered Sig/Praveen Route PRN Reason Start Time Stop Time Status Last Admin Dose Admin Acetaminophen (Tylenol) 650 mg Q4H PRN ORAL fever 07/28/18 22:00 08/27/18 21:59 Aspirin (ASA) 162 mg DAILY NG 07/29/18 09:00 08/23/18 08:59 Chlorhexidine Gluconate (Leslie-Hex 2%) 1 applic DAILY@1999 TOPIC 07/29/18 20:00 08/25/18 19:59 Dextrose (Dextrose 50%) 25 ml Q30M PRN IV Hypoglycemia 07/28/18 22:00 08/22/18 09:54 Dextrose (Dextrose 50%) 50 ml Q30M PRN IV hypoglycemia 07/28/18 22:00 08/22/18 09:59 Docusate Sodium (Colace) 100 mg TWICE A DAY ORAL 07/29/18 18:00 08/28/18 17:59 Epoetin Yao (Procrit (for ESRD on dialysis)) 10,000 units THU-THU-THU SUBQ 07/30/18 21:00 08/15/18 20:59 Haloperidol Lactate (Haldol) 5 mg Q4H PRN IM Agitation 07/28/18 22:00 08/27/18 21:59 Hydralazine HCl (Apresoline) 10 mg Q4H PRN IV SBP > OR = 160mmHg 07/28/18 22:00 08/19/18 21:59 Insulin Aspart (NovoLOG) EVERY 6 HOURS SUBQ 07/29/18 00:00 08/16/18 20:59 07/29/18 12:00 Lorazepam (Ativan 2mg/ml 1ml) 1 mg Q4H PRN IM For Anxiety 07/28/18 22:00 08/04/18 21:59 07/29/18 03:09 Nitroglycerin (Ntg) 1 patch DAILY TDERMAL 07/29/18 09:00 08/20/18 10:29 07/29/18 09:00 Pantoprazole (Protonix) 40 mg DAILY ORAL 07/30/18 09:00 08/29/18 08:59 Piperacillin Sod/ Tazobactam Sod 2.25 gm/Dextrose 55 ml @ 110 mls/hr Q8H IV 07/29/18 03:30 08/01/18 19:29 07/29/18 11:30 Quetiapine Fumarate (SEROquel) 25 mg Q6H PRN ORAL For Anxiety 07/28/18 22:00 08/27/18 21:59 Quetiapine Fumarate (SEROquel) 100 mg Q8HR ORAL 07/28/18 22:00 08/15/18 13:59 07/29/18 13:23 Sevelamer Carbonate (Renvela) 1,600 mg THREE TIMES A DAY ORAL 07/29/18 09:00 08/15/18 12:59 Vancomycin HCl (Vanco rx to dose) 1 ea DAILY PRN MISC Per rx protocol 07/29/18 09:00 08/24/18 18:59 Olinda Poon MD Jul 29, 2018 16:58
[2018-07-29] MEDS ORDERED: Docusate 100mg cap ORAL SCH (18:00)
[2018-07-29 20:00] VITALS: BP 150/70
[2018-07-29] MEDS ORDERED: Dyna-Hex 2% Top Sol 2oz TOPIC SCH (20:00)
[2018-07-29 21:00] VITALS: BP 160/74
--- NOTE | 2018-07-29 22:16 | General Progress Note ---
Assessment/Plan Problem List: (1) Encephalopathy due to metabolic factor or toxin SNOMED: [id number] Assessment/Plan seroquel 100mg tid the pt lack capacity to make decisions. haldol and ativan im Subjective Date patient seen: Jul 29, 2018 Neurologic/Psychiatric: Reports: anxiety, depressed, emotional problems Allergies: Coded Allergies: No Known Allergies (Verified , 11/24/07) UNABLE TO ASSESS (Unverified , 07/15/18) Subjective the pt is less agitated and confused. Objective Last 24 Hour Vital Signs Date Time Temp Pulse Resp B/P (MAP) Pulse Ox O2 Delivery O2 Flow Rate FiO2 07/29/18 19:25 Nasal Cannula 2.0 28 07/29/18 19:25 98 Nasal Cannula 2.0 28 07/29/18 19:25 86 20 Nasal Cannula 2.0 28 07/29/18 16:20 87 07/29/18 16:00 Nasal Cannula 2.0 07/29/18 16:00 98.7 86 21 158/80 (106) 98 98.7 07/29/18 13:31 86 07/29/18 12:00 98.7 92 18 136/83 (100) 96 98.7 07/29/18 12:00 Nasal Cannula 2.0 07/29/18 09:00 143/58 07/29/18 08:36 98 Nasal Cannula 2.0 28 07/29/18 08:36 Nasal Cannula 2.0 28 07/29/18 08:36 90 07/29/18 08:36 80 20 Nasal Cannula 2.0 28 07/29/18 08:00 Nasal Cannula 2.0 07/29/18 08:00 99.0 87 17 143/58 (86) 100 99.0 07/29/18 04:00 Nasal Cannula 2.0 07/29/18 04:00 94 07/29/18 00:00 Nasal Cannula 2.0 07/29/18 00:00 82 Intake and Output 07/28/18 07/29/18 19:00 07:00 Intake Total 110 ml Output Total 3000 ml 1 ml Balance -2890 ml -1 ml IV Total 110 ml Output Urine Total 0 ml 1 ml Hemodialysis UF 3000 ml Laboratory Tests 07/29/18 08:15: Sodium Level 138, Potassium Level 4.0, Chloride Level 102, Carbon Dioxide Level 28, Anion Gap 8, Blood Urea Nitrogen 43H, Creatinine 7.4H, Estimat Glomerular Filtration Rate 9.0, Glucose Level 93, Calcium Level 8.6, Phosphorus Level 5.2H , Total Bilirubin 0.3, Aspartate Amino Transf (AST/SGOT) 17, Alanine Aminotransferase (ALT/SGPT) 17, Alkaline Phosphatase 111, Total Protein 6.4, Albumin 2.2L, Globulin 4.2, Albumin/Globulin Ratio 0.5L Height (Feet): 5 Height (Inches): 8.00 Weight (Pounds): 204 Tara Ward MD Jul 29, 2018 22:16
--- NOTE | 2018-07-29 22:34 | Cardiology Progress Note ---
Assessment/Plan Status: stable Assessment/Plan Assessment: 1) ESRD (end stage renal disease) on dialysis (2) Anemia in chronic kidney disease (CKD) (3) Hypertensive kidney disease (4) Encephalopathy (5) DM (6) Hyperlipemia Plan: Maintain hemodialysis Echocardiogram --> preserved systolic function, mild valvular regurgitation, mild pulmonary hypertension, elevated filling pressures Stress test prior to dc to evaluate chest pain given multiple cardiac risk factors and NSVT - Aspirin Statin No indication for urgent cardiac cath Pulmonary toilet Speech/swallow evaluation Transferred to [facility] Transfusion prn Advance diet as tolerated Subjective Cardiovascular: Reports: no symptoms Respiratory: Reports: no symptoms Gastrointestinal/Abdominal: Reports: no symptoms Genitourinary: Reports: no symptoms Subjective Patient in [facility], mental status improved post extubated, on restraints, plan for HD tomorrow, awaiting consent for blood transfusion Objective Last 24 Hour Vital Signs Date Time Temp Pulse Resp B/P (MAP) Pulse Ox O2 Delivery O2 Flow Rate FiO2 07/29/18 19:25 Nasal Cannula 2.0 28 07/29/18 19:25 98 Nasal Cannula 2.0 28 07/29/18 19:25 86 20 Nasal Cannula 2.0 28 07/29/18 16:20 87 07/29/18 16:00 Nasal Cannula 2.0 07/29/18 16:00 98.7 86 21 158/80 (106) 98 98.7 07/29/18 13:31 86 07/29/18 12:00 98.7 92 18 136/83 (100) 96 98.7 07/29/18 12:00 Nasal Cannula 2.0 07/29/18 09:00 143/58 07/29/18 08:36 98 Nasal Cannula 2.0 28 07/29/18 08:36 Nasal Cannula 2.0 28 07/29/18 08:36 90 07/29/18 08:36 80 20 Nasal Cannula 2.0 28 07/29/18 08:00 Nasal Cannula 2.0 07/29/18 08:00 99.0 87 17 143/58 (86) 100 99.0 07/29/18 04:00 Nasal Cannula 2.0 07/29/18 04:00 94 07/29/18 00:00 Nasal Cannula 2.0 07/29/18 00:00 82 General Appearance: no apparent distress, alert EENT: normal ENT inspection, TMs normal, pharynx normal Neck: non-tender, normal alignment, supple, normal inspection, no JVD Rhythm: NSR Cardiovascular: normal peripheral pulses, normal rate, regularly irregular Respiratory/Chest: chest wall non-tender, lungs clear Abdomen: normal bowel sounds, non tender, soft, no organomegaly, no mass Extremities: normal range of motion, non-tender 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: 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 normal, no motor/sensory deficits Intake and Output 07/28/18 07/29/18 19:00 07:00 Intake Total 110 ml Output Total 3000 ml 1 ml Balance -2890 ml -1 ml IV Total 110 ml Output Urine Total 0 ml 1 ml Hemodialysis UF 3000 ml Laboratory Tests Test 07/29/18 08:15 Sodium Level 138 MMOL/L (136-145) Potassium Level 4.0 MMOL/L (3.5-5.1) Chloride Level 102 MMOL/L (98-107) Carbon Dioxide Level 28 MMOL/L (21-32) Anion Gap 8 mmol/L (5-15) Blood Urea Nitrogen 43 mg/dL (7-18) H Creatinine 7.4 MG/DL (0.55-1.30) H Estimat Glomerular Filtration Rate 9.0 mL/min (>60) Glucose Level 93 MG/DL (74-106) Calcium Level 8.6 MG/DL (8.5-10.1) Phosphorus Level 5.2 MG/DL (2.5-4.9) H Total Bilirubin 0.3 MG/DL (0.2-1.0) Aspartate Amino Transf (AST/SGOT) 17 U/L (15-37) Alanine Aminotransferase (ALT/SGPT) 17 U/L (12-78) Alkaline Phosphatase 111 U/L (46-116) Total Protein 6.4 G/DL (6.4-8.2) Albumin 2.2 G/DL (3.4-5.0) L Globulin 4.2 g/dL Albumin/Globulin Ratio 0.5 (1.0-2.7) L Yimi Luevano MD Jul 29, 2018 22:34
[2018-07-30] VITALS (7 sets, daily range): BP systolic 120–167; BP diastolic 51–84
[2018-07-30] MEDS: Piperacillin/Tazobactam 2.25 GM in D5W 55 ML IV SCH ×3 (03:08→20:13)
[2018-07-30] MEDS: NovoLOG Insulin Flexpen SUBQ SCH ×4 (05:58→18:58)
[2018-07-30] MEDS ORDERED: Haloperidol 5mg/ml Inj IM PRN (06:00)
[2018-07-30] MEDS ORDERED: LORazepam Inj 2mg/ml 1ml IM PRN (06:00)
[2018-07-30] MEDS: Aspirin Baby 81mg NG SCH (08:38)
[2018-07-30] MEDS: Nitroglycerin Patch 0.4mg TDERMAL SCH (08:38)
[2018-07-30] MEDS: Renvela 800mg Pkt ORAL SCH ×3 (08:39→18:59)
[2018-07-30] MEDS: Docusate 100mg cap ORAL SCH ×2 (08:39→18:59)
[2018-07-30 09:04] LABS: BASOPHILS % (AUTO) 1.9 % (0.0-2.0); EOSINOPHILS % (AUTO) 3.3 % (0.0-3.0); HEMATOCRIT 29.3 % (42.0-52.0); LYMPHOCYTES % (AUTO) 16.7 % (20.0-45.0); MEAN CORPUSCULAR VOLUME 94 FL (80-99); MONOCYTES % (AUTO) 18.4 % (1.0-10.0); NEUTROPHILS % (AUTO) 59.8 % (45.0-75.0); PLATELET COUNT 159 K/UL (150-450); RED BLOOD COUNT 3.11 M/UL (4.70-6.10); RED CELL DISTRIBUTION WIDTH 15.2 % (11.6-14.8); WHITE BLOOD COUNT 4.2 K/UL (4.8-10.8)
[2018-07-30 09:07] LABS: HEMOGLOBIN 9.2 G/DL (14.2-18.0)
[2018-07-30 09:09] LABS: ANION GAP 8 mmol/L (5-15); BLOOD UREA NITROGEN 48 mg/dL (7-18); CALCIUM 8.5 MG/DL (8.5-10.1); CARBON DIOXIDE 28 MMOL/L (21-32); CHLORIDE 103 MMOL/L (98-107); CREATININE 8.9 MG/DL (0.55-1.30); POTASSIUM 4.4 MMOL/L (3.5-5.1); SODIUM 139 MMOL/L (136-145)
--- NOTE | 2018-07-30 13:14 | Pulmonology Progress Note ---
Assessment/Plan Problems: (1) Encephalopathy (2) Anemia in chronic kidney disease (CKD) (3) ESRD (end stage renal disease) on dialysis (4) HTN (hypertension) (5) Diabetes mellitus Assessment/Plan got prbc yesterday sputum MRSA on Zosyn abx as per ID sliding scale still on restrains dvt prophylaxis. Subjective ROS Limited/Unobtainable: No Constitutional: Reports: no symptoms HEENT: Repors: no symptoms Allergies: Coded Allergies: No Known Allergies (Verified , 11/24/07) UNABLE TO ASSESS (Unverified , 07/15/18) Objective Last 24 Hour Vital Signs Date Time Temp Pulse Resp B/P (MAP) Pulse Ox O2 Delivery O2 Flow Rate FiO2 07/30/18 12:00 98.3 75 20 142/57 (85) 98 98.3 07/30/18 11:58 Nasal Cannula 2.0 07/30/18 09:00 Nasal Cannula 2.0 07/30/18 08:38 142/57 07/30/18 08:30 75 20 Nasal Cannula 2.0 28 07/30/18 08:30 98 Nasal Cannula 2.0 28 07/30/18 08:30 Nasal Cannula 2.0 28 07/30/18 08:10 98.3 75 20 142/57 (85) 98 98.3 75 07/30/18 04:00 97.8 72 20 137/51 (79) 96 97.8 07/30/18 04:00 Nasal Cannula 2.0 07/30/18 01:00 79 07/30/18 00:00 97.5 85 20 155/82 (106) 96 97.5 07/30/18 00:00 Nasal Cannula 2.0 07/30/18 00:00 79 07/29/18 21:00 98.0 82 20 160/74 (102) 100 98.0 07/29/18 20:00 97.9 75 20 150/70 (96) 100 97.9 07/29/18 20:00 Nasal Cannula 2.0 07/29/18 19:25 Nasal Cannula 2.0 28 07/29/18 19:25 98 Nasal Cannula 2.0 28 07/29/18 19:25 86 20 Nasal Cannula 2.0 28 07/29/18 16:20 87 07/29/18 16:00 Nasal Cannula 2.0 07/29/18 16:00 98.7 86 21 158/80 (106) 98 98.7 07/29/18 13:31 86 Intake and Output 07/29/18 07/30/18 19:00 07:00 Intake Total 55 ml 170 ml Output Total 1 ml 2 ml Balance 54 ml 168 ml Intake Oral 60 ml IV Total 55 ml 110 ml Output Urine Total 1 ml 2 ml General Appearance: WD/WN HEENT: normocephalic, atraumatic Respiratory/Chest: chest wall non-tender, lungs clear Cardiovascular: normal peripheral pulses, normal rate Abdomen: normal bowel sounds, soft, non tender Genitourinary: normal external genitalia 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 Laboratory Tests 07/30/18 08:10: White Blood Count 4.2L, Red Blood Count 3.11L, Hemoglobin 9.2L, Hematocrit 29.3L , Mean Corpuscular Volume 94, Mean Corpuscular Hemoglobin 29.8, Mean Corpuscular Hemoglobin Concent 31.6L, Red Cell Distribution Width 15.2H, Platelet Count 159, Mean Platelet Volume 6.5, Neutrophils (%) (Auto) 59.8, Lymphocytes (%) (Auto) 16.7L, Monocytes (%) (Auto) 18.4H, Eosinophils (%) (Auto ) 3.3H, Basophils (%) (Auto) 1.9, Sodium Level 139, Potassium Level 4.4, Chloride Level 103, Carbon Dioxide Level 28, Anion Gap 8, Blood Urea Nitrogen 48H, Creatinine 8.9H, Estimat Glomerular Filtration Rate 7.3, Glucose Level 78, Calcium Level 8.5 Current Medications Medications (Trade) Dose Ordered Sig/Praveen Route PRN Reason Start Time Stop Time Status Last Admin Dose Admin Acetaminophen (Tylenol) 650 mg Q4H PRN ORAL fever 07/30/18 06:00 08/27/18 21:59 Aspirin (ASA) 162 mg DAILY NG 07/30/18 09:00 08/23/18 08:59 07/30/18 08:38 Chlorhexidine Gluconate (Leslie-Hex 2%) 1 applic DAILY@1999 TOPIC 07/30/18 20:00 08/25/18 19:59 Dextrose (Dextrose 50%) 25 ml Q30M PRN IV Hypoglycemia 07/30/18 06:00 08/22/18 09:54 Dextrose (Dextrose 50%) 50 ml Q30M PRN IV hypoglycemia 07/30/18 06:00 08/22/18 09:59 Docusate Sodium (Colace) 100 mg TWICE A DAY ORAL 07/30/18 09:00 08/28/18 17:59 07/30/18 08:39 Epoetin Yao (Procrit (for ESRD on dialysis)) 10,000 units THU-THU-THU SUBQ 07/30/18 21:00 08/15/18 20:59 Haloperidol Lactate (Haldol) 5 mg Q4H PRN IM Agitation 07/30/18 06:00 08/27/18 21:59 Insulin Aspart (NovoLOG) EVERY 6 HOURS SUBQ 07/30/18 06:00 08/16/18 20:59 Lorazepam (Ativan 2mg/ml 1ml) 1 mg Q4H PRN IM For Anxiety 07/30/18 06:00 08/04/18 21:59 Nitroglycerin (Ntg) 1 patch DAILY TDERMAL 07/30/18 09:00 08/20/18 10:29 07/30/18 08:38 Pantoprazole (Protonix) 40 mg DAILY ORAL 07/30/18 09:00 08/29/18 08:59 Piperacillin Sod/ Tazobactam Sod 2.25 gm/Dextrose 55 ml @ 110 mls/hr Q8H IV 07/30/18 11:30 08/01/18 19:29 Quetiapine Fumarate (SEROquel) 25 mg Q6H PRN ORAL For Anxiety 07/30/18 10:00 08/27/18 21:59 Quetiapine Fumarate (SEROquel) 100 mg Q8HR ORAL 07/30/18 06:00 08/15/18 13:59 07/30/18 05:58 Sevelamer Carbonate (Renvela) 1,600 mg THREE TIMES A DAY ORAL 07/30/18 09:00 08/15/18 12:59 07/30/18 08:39 Vancomycin HCl (Vanco rx to dose) 1 ea DAILY PRN MISC Per rx protocol 07/30/18 09:00 08/24/18 18:59 Denise Rogers MD Jul 30, 2018 13:14
--- NOTE | 2018-07-30 13:41 | Nephrology Progress Note ---
Assessment/Plan Problem List: (1) Acute respiratory failure Assessment: on presentation- worsened (2) ESRD (end stage renal disease) on dialysis (3) Hyperkalemia (4) CHF (congestive heart failure) (5) Anemia in chronic kidney disease (CKD) Assessment ESRD has permacath hyperkalemia Shortness of breath, CHF NOW ACUTE RESPIRATORY FAILURE , ON VENT Encephalopathy condition: 1) ESRD (end stage renal disease) on dialysis (2) Anemia in chronic kidney disease (CKD) (3) Hypertensive kidney disease (4) Encephalopathy (5) DM (6) Hyperlipemia Plan post extubation care Dialysis next 07/30 DC Lopressor in med surg now transfused optimize cardiac status 2 D echo noted adjust BP meds adjust BS meds phos binders asa nitrate per orders Subjective ROS Limited/Unobtainable: No Constitutional: Reports: malaise, weakness Objective Objective Last 24 Hour Vital Signs Date Time Temp Pulse Resp B/P (MAP) Pulse Ox O2 Delivery O2 Flow Rate FiO2 07/30/18 12:00 98.3 75 20 142/57 (85) 98 98.3 07/30/18 11:58 Nasal Cannula 2.0 07/30/18 09:00 Nasal Cannula 2.0 07/30/18 08:38 142/57 07/30/18 08:30 75 20 Nasal Cannula 2.0 28 07/30/18 08:30 98 Nasal Cannula 2.0 28 07/30/18 08:30 Nasal Cannula 2.0 28 07/30/18 08:10 98.3 75 20 142/57 (85) 98 98.3 75 07/30/18 04:00 97.8 72 20 137/51 (79) 96 97.8 07/30/18 04:00 Nasal Cannula 2.0 07/30/18 01:00 79 07/30/18 00:00 97.5 85 20 155/82 (106) 96 97.5 07/30/18 00:00 Nasal Cannula 2.0 07/30/18 00:00 79 07/29/18 21:00 98.0 82 20 160/74 (102) 100 98.0 07/29/18 20:00 97.9 75 20 150/70 (96) 100 97.9 07/29/18 20:00 Nasal Cannula 2.0 07/29/18 19:25 Nasal Cannula 2.0 28 07/29/18 19:25 98 Nasal Cannula 2.0 28 07/29/18 19:25 86 20 Nasal Cannula 2.0 28 07/29/18 16:20 87 07/29/18 16:00 Nasal Cannula 2.0 07/29/18 16:00 98.7 86 21 158/80 (106) 98 98.7 Intake and Output 07/29/18 07/30/18 19:00 07:00 Intake Total 55 ml 170 ml Output Total 1 ml 2 ml Balance 54 ml 168 ml Intake Oral 60 ml IV Total 55 ml 110 ml Output Urine Total 1 ml 2 ml Laboratory Tests 07/30/18 08:10: White Blood Count 4.2L, Red Blood Count 3.11L, Hemoglobin 9.2L, Hematocrit 29.3L , Mean Corpuscular Volume 94, Mean Corpuscular Hemoglobin 29.8, Mean Corpuscular Hemoglobin Concent 31.6L, Red Cell Distribution Width 15.2H, Platelet Count 159, Mean Platelet Volume 6.5, Neutrophils (%) (Auto) 59.8, Lymphocytes (%) (Auto) 16.7L, Monocytes (%) (Auto) 18.4H, Eosinophils (%) (Auto ) 3.3H, Basophils (%) (Auto) 1.9, Sodium Level 139, Potassium Level 4.4, Chloride Level 103, Carbon Dioxide Level 28, Anion Gap 8, Blood Urea Nitrogen 48H, Creatinine 8.9H, Estimat Glomerular Filtration Rate 7.3, Glucose Level 78, Calcium Level 8.5 Height (Feet): 5 Height (Inches): 8.00 Weight (Pounds): 194 General Appearance: no apparent distress Cardiovascular: normal rate Respiratory/Chest: decreased breath sounds Abdomen: soft Objective no change Mirza Conde MD Jul 30, 2018 13:41
--- NOTE | 2018-07-30 15:18 | General Progress Note ---
Assessment/Plan Assessment/Plan # Pancytopenia potentially reactive process versus meds related or related to bone marrow process, hepatitis and hiv both reviewed and are negative, has been acute onset since admission --> stable to improving. DOES HAVE SPLENOMEGALY --> us of the abdomen shows splenomegaly++ and can in future repeat as needed --> at this time, does not need a bone marrow biopsy --> on IV iron and epogen sq --> neupogen sq prn if ANC <1000 --> wbc count is better, does not require supportive growth factors --> LABS have been reviewed # Anemia of chronic disease has been evaluated and reviewed, does have evidence of iron deficiency, has been given iron once d/c --> po iron once discharged --> ok for epogen --> on iv iron --> appreciate renal recs --> on HD prn # ESRD as per nephro --> on hd prn, has received while in hospital # + cardiomegaly with PVC --> seen by cards # Health care associated pneumonia --> Pulm consulted, appreciate recs --> Pt extubated since 07/28 --> abx as per ID # Encephalopathy -- can communicate --> has improved slowly --> now able to speak Greatly appreciate consultation! Subjective Constitutional: Reports: no symptoms Cardiovascular: Reports: no symptoms Respiratory: Reports: no symptoms Gastrointestinal/Abdominal: Reports: no symptoms Genitourinary: Reports: no symptoms Neurologic/Psychiatric: Reports: no symptoms Endocrine: Reports: no symptoms Hematologic/Lymphatic: Reports: anemia Allergies: Coded Allergies: No Known Allergies (Verified , 11/24/07) UNABLE TO ASSESS (Unverified , 07/15/18) Subjective breathing on ra, communicates++, remains on restraints Objective Last 24 Hour Vital Signs Date Time Temp Pulse Resp B/P (MAP) Pulse Ox O2 Delivery O2 Flow Rate FiO2 07/30/18 12:00 98.3 75 20 142/57 (85) 98 98.3 07/30/18 11:58 Nasal Cannula 2.0 07/30/18 09:00 Nasal Cannula 2.0 07/30/18 08:38 142/57 07/30/18 08:30 75 20 Nasal Cannula 2.0 28 07/30/18 08:30 98 Nasal Cannula 2.0 28 07/30/18 08:30 Nasal Cannula 2.0 28 07/30/18 08:10 98.3 75 20 142/57 (85) 98 98.3 75 07/30/18 04:00 97.8 72 20 137/51 (79) 96 97.8 07/30/18 04:00 Nasal Cannula 2.0 07/30/18 01:00 79 07/30/18 00:00 97.5 85 20 155/82 (106) 96 97.5 07/30/18 00:00 Nasal Cannula 2.0 07/30/18 00:00 79 07/29/18 21:00 98.0 82 20 160/74 (102) 100 98.0 07/29/18 20:00 97.9 75 20 150/70 (96) 100 97.9 07/29/18 20:00 Nasal Cannula 2.0 07/29/18 19:25 Nasal Cannula 2.0 28 07/29/18 19:25 98 Nasal Cannula 2.0 28 07/29/18 19:25 86 20 Nasal Cannula 2.0 28 07/29/18 16:20 87 07/29/18 16:00 Nasal Cannula 2.0 07/29/18 16:00 98.7 86 21 158/80 (106) 98 98.7 Intake and Output 07/29/18 07/30/18 19:00 07:00 Intake Total 55 ml 170 ml Output Total 1 ml 2 ml Balance 54 ml 168 ml Intake Oral 60 ml IV Total 55 ml 110 ml Output Urine Total 1 ml 2 ml Laboratory Tests 07/30/18 08:10: White Blood Count 4.2L, Red Blood Count 3.11L, Hemoglobin 9.2L, Hematocrit 29.3L , Mean Corpuscular Volume 94, Mean Corpuscular Hemoglobin 29.8, Mean Corpuscular Hemoglobin Concent 31.6L, Red Cell Distribution Width 15.2H, Platelet Count 159, Mean Platelet Volume 6.5, Neutrophils (%) (Auto) 59.8, Lymphocytes (%) (Auto) 16.7L, Monocytes (%) (Auto) 18.4H, Eosinophils (%) (Auto ) 3.3H, Basophils (%) (Auto) 1.9, Sodium Level 139, Potassium Level 4.4, Chloride Level 103, Carbon Dioxide Level 28, Anion Gap 8, Blood Urea Nitrogen 48H, Creatinine 8.9H, Estimat Glomerular Filtration Rate 7.3, Glucose Level 78, Calcium Level 8.5 Height (Feet): 5 Height (Inches): 8.00 Weight (Pounds): 194 General Appearance: confused EENT: normal ENT inspection Neck: normal inspection Cardiovascular: normal rate Respiratory/Chest: normal breath sounds Abdomen: no mass Extremities: non-tender Edema: 1+ Leg (L), 1+ Leg (R) Edema: mild edema Virgil Ward MD Jul 30, 2018 15:18
--- NOTE | 2018-07-30 15:28 | Cardiology Progress Note ---
Assessment/Plan Status: doing well Assessment/Plan Assessment: 1) ESRD (end stage renal disease) on dialysis (2) Anemia in chronic kidney disease (CKD) (3) Hypertensive kidney disease (4) Encephalopathy (5) DM (6) Hyperlipemia Plan: Maintain hemodialysis Echocardiogram --> preserved systolic function, mild valvular regurgitation, mild pulmonary hypertension, elevated filling pressures Stress test prior to dc to evaluate chest pain given multiple cardiac risk factors and NSVT - Aspirin Statin No indication for urgent cardiac cath Pulmonary toilet Advance diet Transferred to floor -> mobilize/ambulate/physical therapy Transfusion prn Dispo planning Subjective Cardiovascular: Reports: no symptoms Respiratory: Reports: no symptoms Gastrointestinal/Abdominal: Reports: no symptoms Genitourinary: Reports: no symptoms Subjective Patient transferred to floors, mental status improved post extubated, on restraints, s/p transfusion. NO acute events, vitals stable Objective Last 24 Hour Vital Signs Date Time Temp Pulse Resp B/P (MAP) Pulse Ox O2 Delivery O2 Flow Rate FiO2 07/30/18 12:00 98.3 75 20 142/57 (85) 98 98.3 07/30/18 11:58 Nasal Cannula 2.0 07/30/18 09:00 Nasal Cannula 2.0 07/30/18 08:38 142/57 07/30/18 08:30 75 20 Nasal Cannula 2.0 28 07/30/18 08:30 98 Nasal Cannula 2.0 28 07/30/18 08:30 Nasal Cannula 2.0 28 07/30/18 08:10 98.3 75 20 142/57 (85) 98 98.3 75 07/30/18 04:00 97.8 72 20 137/51 (79) 96 97.8 07/30/18 04:00 Nasal Cannula 2.0 07/30/18 01:00 79 07/30/18 00:00 97.5 85 20 155/82 (106) 96 97.5 07/30/18 00:00 Nasal Cannula 2.0 07/30/18 00:00 79 07/29/18 21:00 98.0 82 20 160/74 (102) 100 98.0 07/29/18 20:00 97.9 75 20 150/70 (96) 100 97.9 07/29/18 20:00 Nasal Cannula 2.0 07/29/18 19:25 Nasal Cannula 2.0 28 07/29/18 19:25 98 Nasal Cannula 2.0 28 07/29/18 19:25 86 20 Nasal Cannula 2.0 28 07/29/18 16:20 87 07/29/18 16:00 Nasal Cannula 2.0 07/29/18 16:00 98.7 86 21 158/80 (106) 98 98.7 General Appearance: no apparent distress, alert EENT: PERRL/EOMI, normal ENT inspection, TMs normal, pharynx normal Neck: non-tender, normal alignment, supple, normal inspection, no JVD Rhythm: NSR Cardiovascular: normal peripheral pulses, normal rate, regular rhythm Respiratory/Chest: chest wall non-tender, lungs clear Abdomen: normal bowel sounds, non tender, soft, no organomegaly, no mass Extremities: normal range of motion, non-tender, normal inspection 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: 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, no motor/sensory deficits Intake and Output 07/29/18 07/30/18 19:00 07:00 Intake Total 55 ml 170 ml Output Total 1 ml 2 ml Balance 54 ml 168 ml Intake Oral 60 ml IV Total 55 ml 110 ml Output Urine Total 1 ml 2 ml Laboratory Tests Test 07/30/18 08:10 White Blood Count 4.2 K/UL (4.8-10.8) L Red Blood Count 3.11 M/UL (4.70-6.10) L Hemoglobin 9.2 G/DL (14.2-18.0) L Hematocrit 29.3 % (42.0-52.0) L Mean Corpuscular Volume 94 FL (80-99) Mean Corpuscular Hemoglobin 29.8 PG (27.0-31.0) Mean Corpuscular Hemoglobin Concent 31.6 G/DL (32.0-36.0) L Red Cell Distribution Width 15.2 % (11.6-14.8) H Platelet Count 159 K/UL (150-450) Mean Platelet Volume 6.5 FL (6.5-10.1) Neutrophils (%) (Auto) 59.8 % (45.0-75.0) Lymphocytes (%) (Auto) 16.7 % (20.0-45.0) L Monocytes (%) (Auto) 18.4 % (1.0-10.0) H Eosinophils (%) (Auto) 3.3 % (0.0-3.0) H Basophils (%) (Auto) 1.9 % (0.0-2.0) Sodium Level 139 MMOL/L (136-145) Potassium Level 4.4 MMOL/L (3.5-5.1) Chloride Level 103 MMOL/L (98-107) Carbon Dioxide Level 28 MMOL/L (21-32) Anion Gap 8 mmol/L (5-15) Blood Urea Nitrogen 48 mg/dL (7-18) H Creatinine 8.9 MG/DL (0.55-1.30) H Estimat Glomerular Filtration Rate 7.3 mL/min (>60) Glucose Level 78 MG/DL (74-106) Calcium Level 8.5 MG/DL (8.5-10.1) Yimi Luevano MD Jul 30, 2018 15:28
[2018-07-30] MEDS ORDERED: Tubing IV Secondary IV ONE (15:44)
[2018-07-30] MEDS ORDERED: NS 275ml ONE (15:44)
--- NOTE | 2018-07-30 18:09 | General Progress Note ---
Assessment/Plan Assessment/Plan Acute hypercapnic respiratory failure - resolving, Pulm following Severe sepsis due to suspected gram negative pneumonia, on vancomycin and Zosyn ESRD on HD, continue HD per Nephrology Metabolic acidosis, resolved Acute on chronic diastolic heart failure, fluid management with HD. Cards following NSTEMI type 2, continue ASA, stress test held for now per Cardiology Acute metabolic encephalopathy superimposed on dementia and psychosis, suspect he is close to baseline mentation. Continue supportive measures. Hypertensive heart and renal disease, continue metoprolol Pancytopenia likely due to BM suppression, Hematology following Diet, continue tube feeds DVT ppx: HSQ, SCDs Subjective Date patient seen: Jul 30, 2018 Time patient seen: 15:00 ROS Limited/Unobtainable: Yes Cardiovascular: Denies: chest pain Respiratory: Denies: cough Allergies: Coded Allergies: No Known Allergies (Verified , 11/24/07) UNABLE TO ASSESS (Unverified , 07/15/18) Subjective Medicine followup for multiple medical problems including: Acute hypercapnic respiratory failure due to suspected gram negative pneumonia, acute metabolic encephalopathy, acute on chronic diastolic CHF. No new issues overnight, still confused and intermittently uncooperative. Objective Last 24 Hour Vital Signs Date Time Temp Pulse Resp B/P (MAP) Pulse Ox O2 Delivery O2 Flow Rate FiO2 07/30/18 12:00 98.3 75 20 142/57 (85) 98 98.3 07/30/18 11:58 Nasal Cannula 2.0 07/30/18 09:00 Nasal Cannula 2.0 07/30/18 08:38 142/57 07/30/18 08:30 75 20 Nasal Cannula 2.0 28 07/30/18 08:30 98 Nasal Cannula 2.0 28 07/30/18 08:30 Nasal Cannula 2.0 28 07/30/18 08:10 98.3 75 20 142/57 (85) 98 98.3 75 07/30/18 04:00 97.8 72 20 137/51 (79) 96 97.8 07/30/18 04:00 Nasal Cannula 2.0 07/30/18 01:00 79 07/30/18 00:00 97.5 85 20 155/82 (106) 96 97.5 07/30/18 00:00 Nasal Cannula 2.0 07/30/18 00:00 79 07/29/18 21:00 98.0 82 20 160/74 (102) 100 98.0 07/29/18 20:00 97.9 75 20 150/70 (96) 100 97.9 07/29/18 20:00 Nasal Cannula 2.0 07/29/18 19:25 Nasal Cannula 2.0 28 07/29/18 19:25 98 Nasal Cannula 2.0 28 07/29/18 19:25 86 20 Nasal Cannula 2.0 28 Intake and Output 07/29/18 07/30/18 19:00 07:00 Intake Total 55 ml 170 ml Output Total 1 ml 2 ml Balance 54 ml 168 ml Intake Oral 60 ml IV Total 55 ml 110 ml Output Urine Total 1 ml 2 ml Laboratory Tests 07/30/18 08:10: White Blood Count 4.2L, Red Blood Count 3.11L, Hemoglobin 9.2L, Hematocrit 29.3L , Mean Corpuscular Volume 94, Mean Corpuscular Hemoglobin 29.8, Mean Corpuscular Hemoglobin Concent 31.6L, Red Cell Distribution Width 15.2H, Platelet Count 159, Mean Platelet Volume 6.5, Neutrophils (%) (Auto) 59.8, Lymphocytes (%) (Auto) 16.7L, Monocytes (%) (Auto) 18.4H, Eosinophils (%) (Auto ) 3.3H, Basophils (%) (Auto) 1.9, Sodium Level 139, Potassium Level 4.4, Chloride Level 103, Carbon Dioxide Level 28, Anion Gap 8, Blood Urea Nitrogen 48H, Creatinine 8.9H, Estimat Glomerular Filtration Rate 7.3, Glucose Level 78, Calcium Level 8.5 Height (Feet): 5 Height (Inches): 8.00 Weight (Pounds): 194 General Appearance: alert, confused Cardiovascular: normal rate, regular rhythm Respiratory/Chest: lungs clear, normal breath sounds Abdomen: non tender, soft Adam Jones MD Jul 30, 2018 18:09
[2018-07-30] MEDS: Dyna-Hex 2% Top Sol 2oz TOPIC SCH (20:28)
[2018-07-30] MEDS ORDERED: Epogen (for ESRD on dialysis) SUBQ SCH (21:00)
[2018-07-30] MEDS: Epogen (for ESRD on dialysis) SUBQ SCH (21:38)
--- NOTE | 2018-07-30 23:57 | General Progress Note ---
Assessment/Plan Problem List: (1) Encephalopathy due to metabolic factor or toxin SNOMED: [id number] Assessment/Plan seroquel 100mg tid the pt lack capacity to make decisions. haldol and ativan im Subjective Date patient seen: Jul 30, 2018 Neurologic/Psychiatric: Reports: anxiety, depressed, emotional problems Allergies: Coded Allergies: No Known Allergies (Verified , 11/24/07) UNABLE TO ASSESS (Unverified , 07/15/18) Subjective the pt is less agitated Objective Last 24 Hour Vital Signs Date Time Temp Pulse Resp B/P (MAP) Pulse Ox O2 Delivery O2 Flow Rate FiO2 07/30/18 21:00 Nasal Cannula 2.0 07/30/18 20:00 98.2 90 20 152/65 (94) 96 98.2 07/30/18 19:31 101.7 07/30/18 19:01 103.0 07/30/18 18:30 103.5 120/60 (80) 103.5 07/30/18 16:00 98.7 91 16 99 98.7 07/30/18 16:00 98.7 91 16 167/84 (111) 99 98.7 07/30/18 12:00 98.3 75 20 142/57 (85) 98 98.3 07/30/18 11:58 Nasal Cannula 2.0 07/30/18 09:00 Nasal Cannula 2.0 07/30/18 08:38 142/57 07/30/18 08:30 75 20 Nasal Cannula 2.0 28 07/30/18 08:30 98 Nasal Cannula 2.0 28 07/30/18 08:30 Nasal Cannula 2.0 28 07/30/18 08:10 98.3 75 20 142/57 (85) 98 98.3 75 07/30/18 04:00 97.8 72 20 137/51 (79) 96 97.8 07/30/18 04:00 Nasal Cannula 2.0 07/30/18 01:00 79 07/30/18 00:00 97.5 85 20 155/82 (106) 96 97.5 07/30/18 00:00 Nasal Cannula 2.0 07/30/18 00:00 79 Intake and Output 07/29/18 07/30/18 19:00 07:00 Intake Total 55 ml 170 ml Output Total 1 ml 2 ml Balance 54 ml 168 ml Intake Oral 60 ml IV Total 55 ml 110 ml Output Urine Total 1 ml 2 ml Laboratory Tests 07/30/18 08:10: White Blood Count 4.2L, Red Blood Count 3.11L, Hemoglobin 9.2L, Hematocrit 29.3L , Mean Corpuscular Volume 94, Mean Corpuscular Hemoglobin 29.8, Mean Corpuscular Hemoglobin Concent 31.6L, Red Cell Distribution Width 15.2H, Platelet Count 159, Mean Platelet Volume 6.5, Neutrophils (%) (Auto) 59.8, Lymphocytes (%) (Auto) 16.7L, Monocytes (%) (Auto) 18.4H, Eosinophils (%) (Auto ) 3.3H, Basophils (%) (Auto) 1.9, Sodium Level 139, Potassium Level 4.4, Chloride Level 103, Carbon Dioxide Level 28, Anion Gap 8, Blood Urea Nitrogen 48H, Creatinine 8.9H, Estimat Glomerular Filtration Rate 7.3, Glucose Level 78, Calcium Level 8.5 Height (Feet): 5 Height (Inches): 8.00 Weight (Pounds): 194 Tara Ward MD Jul 30, 2018 23:57
[2018-07-31] VITALS (7 sets, daily range): BP systolic 103–153; BP diastolic 55–71
[2018-07-31] MEDS: Piperacillin/Tazobactam 2.25 GM in D5W 55 ML IV SCH ×2 (02:54→12:22)
[2018-07-31] MEDS: NovoLOG Insulin Flexpen SUBQ SCH ×4 (06:00→17:46)
[2018-07-31] MEDS: Docusate 100mg cap ORAL SCH (09:36)
[2018-07-31] MEDS: Nitroglycerin Patch 0.4mg TDERMAL SCH (09:37)
[2018-07-31] MEDS: Renvela 800mg Pkt ORAL SCH ×3 (09:37→17:11)
[2018-07-31] MEDS: Aspirin Baby 81mg NG SCH (09:37)
--- NOTE | 2018-07-31 10:08 | Nephrology Progress Note ---
Assessment/Plan Problem List: (1) Acute respiratory failure Assessment: on presentation- worsened (2) ESRD (end stage renal disease) on dialysis (3) Hyperkalemia (4) CHF (congestive heart failure) (5) Anemia in chronic kidney disease (CKD) Assessment ESRD has permacath hyperkalemia Shortness of breath, CHF NOW ACUTE RESPIRATORY FAILURE , ON VENT Encephalopathy condition: 1) ESRD (end stage renal disease) on dialysis (2) Anemia in chronic kidney disease (CKD) (3) Hypertensive kidney disease (4) Encephalopathy (5) DM (6) Hyperlipemia Plan post extubation care Dialysis next 08/02 DC Lopressor in med surg now transfused optimize cardiac status 2 D echo noted adjust BP meds adjust BS meds phos binders asa nitrate per orders Subjective ROS Limited/Unobtainable: No Objective Objective Last 24 Hour Vital Signs Date Time Temp Pulse Resp B/P (MAP) Pulse Ox O2 Delivery O2 Flow Rate FiO2 07/31/18 09:37 142/61 07/31/18 04:00 98.5 88 20 103/65 (78) 94 98.5 07/31/18 00:00 98.8 100 20 127/70 (89) 100 98.8 07/30/18 21:00 Nasal Cannula 2.0 07/30/18 20:00 98.2 90 20 152/65 (94) 96 98.2 07/30/18 19:31 101.7 07/30/18 19:05 Nasal Cannula 2.0 28 07/30/18 19:05 97 Nasal Cannula 2.0 28 07/30/18 19:01 103.0 07/30/18 19:00 83 20 Nasal Cannula 2.0 28 07/30/18 18:30 103.5 120/60 (80) 103.5 07/30/18 16:00 98.7 91 16 99 98.7 07/30/18 16:00 98.7 91 16 167/84 (111) 99 98.7 07/30/18 12:00 98.3 75 20 142/57 (85) 98 98.3 07/30/18 11:58 Nasal Cannula 2.0 Intake and Output 07/30/18 07/31/18 19:00 07:00 Intake Total 720 ml 55 ml Output Total 3000 ml Balance -2280 ml 55 ml Intake Oral 720 ml IV Total 55 ml Hemodialysis UF 3000 ml # Voids 3 Laboratory Tests 07/31/18 07:35: Random Vancomycin Level 19.4 Height (Feet): 5 Height (Inches): 8.00 Weight (Pounds): 204 General Appearance: no apparent distress Objective no change Mirza Conde MD Jul 31, 2018 10:08
--- NOTE | 2018-07-31 12:01 | Pulmonology Progress Note ---
Assessment/Plan Problems: (1) Encephalopathy (2) Anemia in chronic kidney disease (CKD) (3) ESRD (end stage renal disease) on dialysis (4) HTN (hypertension) (5) Diabetes mellitus Assessment/Plan doing better less confused sputum MRSA on Zosyn abx as per ID sliding scale still on restrains dvt prophylaxis. Subjective ROS Limited/Unobtainable: No Constitutional: Reports: no symptoms Respiratory: Reports: no symptoms Allergies: Coded Allergies: No Known Allergies (Verified , 11/24/07) UNABLE TO ASSESS (Unverified , 07/15/18) Objective Last 24 Hour Vital Signs Date Time Temp Pulse Resp B/P (MAP) Pulse Ox O2 Delivery O2 Flow Rate FiO2 07/31/18 09:37 142/61 07/31/18 04:00 98.5 88 20 103/65 (78) 94 98.5 07/31/18 00:00 98.8 100 20 127/70 (89) 100 98.8 07/30/18 21:00 Nasal Cannula 2.0 07/30/18 20:00 98.2 90 20 152/65 (94) 96 98.2 07/30/18 19:31 101.7 07/30/18 19:05 Nasal Cannula 2.0 28 07/30/18 19:05 97 Nasal Cannula 2.0 28 07/30/18 19:01 103.0 07/30/18 19:00 83 20 Nasal Cannula 2.0 28 07/30/18 18:30 103.5 120/60 (80) 103.5 07/30/18 16:00 98.7 91 16 99 98.7 07/30/18 16:00 98.7 91 16 167/84 (111) 99 98.7 Intake and Output 07/30/18 07/31/18 19:00 07:00 Intake Total 720 ml 55 ml Output Total 3000 ml Balance -2280 ml 55 ml Intake Oral 720 ml IV Total 55 ml Hemodialysis UF 3000 ml # Voids 3 General Appearance: WD/WN HEENT: normocephalic, atraumatic Respiratory/Chest: lungs clear Cardiovascular: normal rate, regularly irregular Abdomen: normal bowel sounds, no organomegaly Extremities: no cyanosis Skin: no lesions Laboratory Tests 07/31/18 07:35: Random Vancomycin Level 19.4 Current Medications Medications (Trade) Dose Ordered Sig/Praveen Route PRN Reason Start Time Stop Time Status Last Admin Dose Admin Acetaminophen (Tylenol) 650 mg Q4H PRN ORAL fever 07/30/18 06:00 08/27/18 21:59 07/30/18 19:01 Aspirin (ASA) 162 mg DAILY NG 07/30/18 09:00 08/23/18 08:59 07/31/18 09:37 Chlorhexidine Gluconate (Leslie-Hex 2%) 1 applic DAILY@2000 TOPIC 07/30/18 20:00 08/25/18 19:59 07/30/18 20:28 Dextrose (Dextrose 50%) 25 ml Q30M PRN IV Hypoglycemia 07/30/18 06:00 08/22/18 09:54 Dextrose (Dextrose 50%) 50 ml Q30M PRN IV hypoglycemia 07/30/18 06:00 08/22/18 09:59 Docusate Sodium (Colace) 100 mg TWICE A DAY ORAL 07/30/18 09:00 08/28/18 17:59 07/31/18 09:36 Epoetin Yao (Procrit (for ESRD on dialysis)) 10,000 units THU-THU-THU SUBQ 07/30/18 21:00 08/15/18 20:59 07/30/18 21:38 Haloperidol Lactate (Haldol) 5 mg Q4H PRN IM Agitation 07/30/18 06:00 08/27/18 21:59 Insulin Aspart (NovoLOG) EVERY 6 HOURS SUBQ 07/30/18 06:00 08/16/18 20:59 07/30/18 18:58 Lansoprazole (Prevacid) 30 mg DAILY ORAL 07/31/18 09:00 08/30/18 08:59 07/31/18 09:36 Lorazepam (Ativan 2mg/ml 1ml) 1 mg Q4H PRN IM For Anxiety 07/30/18 06:00 08/04/18 21:59 Nitroglycerin (Ntg) 1 patch DAILY TDERMAL 07/30/18 09:00 08/20/18 10:29 07/31/18 09:37 Piperacillin Sod/ Tazobactam Sod 2.25 gm/Dextrose 55 ml @ 110 mls/hr Q8H IV 07/30/18 11:30 08/01/18 19:29 07/31/18 02:54 Quetiapine Fumarate (SEROquel) 25 mg Q6H PRN ORAL For Anxiety 07/30/18 10:00 08/27/18 21:59 07/31/18 09:39 Quetiapine Fumarate (SEROquel) 100 mg Q8HR ORAL 07/30/18 06:00 08/15/18 13:59 07/31/18 05:41 Sevelamer Carbonate (Renvela) 1,600 mg THREE TIMES A DAY ORAL 07/30/18 09:00 08/15/18 12:59 07/31/18 09:37 Vancomycin HCl (Vanco rx to dose) 1 ea DAILY PRN MISC Per rx protocol 07/30/18 09:00 08/24/18 18:59 Vancomycin HCl 1 gm/Dextrose 275 ml @ 175 mls/hr ONCE IVPB 07/31/18 17:00 07/31/18 18:35 Denise Rogers MD Jul 31, 2018 12:01
--- NOTE | 2018-07-31 14:42 | General Progress Note ---
Assessment/Plan Assessment/Plan Acute hypercapnic respiratory failure - resolving, Pulm following Severe sepsis due to suspected gram negative pneumonia, on vancomycin and Zosyn , will transition to Augmentin and stop vancomycin ESRD on HD, continue HD per Nephrology Metabolic acidosis, resolved Acute on chronic diastolic heart failure, fluid management with HD. Cards following NSTEMI type 2, continue ASA, stress test held for now per Cardiology Acute metabolic encephalopathy superimposed on dementia and psychosis, improved , can likely discontinue wrist restraints. Hypertensive heart and renal disease, continue metoprolol Pancytopenia likely due to BM suppression, Hematology following Diet, continue tube feeds DVT ppx: HSQ, SCDs Subjective Date patient seen: Jul 31, 2018 Time patient seen: 14:00 ROS Limited/Unobtainable: Yes Cardiovascular: Denies: chest pain Respiratory: Denies: cough Gastrointestinal/Abdominal: Denies: abdominal pain Allergies: Coded Allergies: No Known Allergies (Verified , 11/24/07) UNABLE TO ASSESS (Unverified , 07/15/18) Subjective Medicine followup for multiple medical problems including: Acute hypercapnic respiratory failure due to suspected gram negative pneumonia, acute metabolic encephalopathy, acute on chronic diastolic CHF. No new issues overnight, less confused and better cooperation. Objective Last 24 Hour Vital Signs Date Time Temp Pulse Resp B/P (MAP) Pulse Ox O2 Delivery O2 Flow Rate FiO2 07/31/18 13:13 97.8 87 20 142/61 (88) 96 97.8 07/31/18 12:00 98.2 82 20 143/55 (84) 98.2 07/31/18 09:37 142/61 07/31/18 09:00 Nasal Cannula 2.0 07/31/18 08:00 97.8 87 18 142/61 (88) 96 97.8 07/31/18 04:00 98.5 88 20 103/65 (78) 94 98.5 07/31/18 00:00 98.8 100 20 127/70 (89) 100 98.8 07/30/18 21:00 Nasal Cannula 2.0 07/30/18 20:00 98.2 90 20 152/65 (94) 96 98.2 07/30/18 19:31 101.7 07/30/18 19:05 Nasal Cannula 2.0 28 07/30/18 19:05 97 Nasal Cannula 2.0 28 07/30/18 19:01 103.0 07/30/18 19:00 83 20 Nasal Cannula 2.0 28 07/30/18 18:30 103.5 120/60 (80) 103.5 07/30/18 16:00 98.7 91 16 99 98.7 07/30/18 16:00 98.7 91 16 167/84 (111) 99 98.7 Intake and Output 07/30/18 07/31/18 19:00 07:00 Intake Total 720 ml 55 ml Output Total 3000 ml Balance -2280 ml 55 ml Intake Oral 720 ml IV Total 55 ml Hemodialysis UF 3000 ml # Voids 3 Laboratory Tests 07/31/18 07:35: Random Vancomycin Level 19.4 Height (Feet): 5 Height (Inches): 8.00 Weight (Pounds): 204 General Appearance: no apparent distress, alert Neck: non-tender, normal alignment Cardiovascular: normal rate, regular rhythm Respiratory/Chest: lungs clear, normal breath sounds Abdomen: non tender, soft Adam Jones MD Jul 31, 2018 14:42
[2018-07-31] MEDS ORDERED: NS 275ml ONE (15:02)
[2018-07-31] MEDS ORDERED: Tubing IV Secondary IV ONE (15:02)
--- NOTE | 2018-07-31 16:30 | Infectious Diseases Prog Note ---
Assessment/Plan Assessment/Plan ASSESSMENT AND PLAN: 1. mrsa pna, aspiration pna, sepsis, fevers, proteus uti/streptococcus uti, respiratory failure - vancomycin and zosyn - day # 11, plan on 14 day treatment course (longer treatment course since patient was septic and respiratory failure) - monitor labs and chest x-ray - watch temps - had fever yesterday, recheck cultures 2. Respiratory failure, on vent. 3. End-stage renal disease, on hemodialysis. 4. Intensive care unit care. 5. Skin care protocol. 6. Hypertension. 7. Hypertensive kidney disease. 8. Gastroesophageal reflux disease. 9. Diabetes. 10. Hyperlipidemia. 11. Anemia. 12. Dementia. 13. Allergies are negative. 14. Family history is noncontributory. 15. Social history is negative. 16. MAR was noted. 17. Case was discussed with RN. 18. Notes and records were noted. 19. Orders were entered. 20. Continue treatment per primary consultants. Subjective Constitutional: Reports: fever - fever yesterday, non today HEENT: Denies: congestion Respiratory: Denies: shortness of breath Cardiovascular: Denies: chest pain Gastrointestinal/Abdominal: Denies: nausea, vomiting, diarrhea Genitourinary: Reports: other Neurologic: Reports: weakness, other - more alert but still somewhat lethargic Psychiatric: Reports: other - na Endocrine: Reports: other - na Hematologic: Denies: bleeding Musculoskeletal: Denies: pain Allergies: Coded Allergies: No Known Allergies (Verified , 11/24/07) UNABLE TO ASSESS (Unverified , 07/15/18) Objective Vital Signs Last 24 Hour Vital Signs Date Time Temp Pulse Resp B/P (MAP) Pulse Ox O2 Delivery O2 Flow Rate FiO2 07/31/18 13:13 97.8 87 20 142/61 (88) 96 97.8 07/31/18 12:00 98.2 82 20 143/55 (84) 98.2 07/31/18 09:37 142/61 07/31/18 09:00 Nasal Cannula 2.0 07/31/18 08:00 97.8 87 18 142/61 (88) 96 97.8 07/31/18 04:00 98.5 88 20 103/65 (78) 94 98.5 07/31/18 00:00 98.8 100 20 127/70 (89) 100 98.8 07/30/18 21:00 Nasal Cannula 2.0 07/30/18 20:00 98.2 90 20 152/65 (94) 96 98.2 07/30/18 19:31 101.7 07/30/18 19:05 Nasal Cannula 2.0 28 07/30/18 19:05 97 Nasal Cannula 2.0 28 07/30/18 19:01 103.0 07/30/18 19:00 83 20 Nasal Cannula 2.0 28 07/30/18 18:30 103.5 120/60 (80) 103.5 Height (Feet): 5 Height (Inches): 8.00 Weight (Pounds): 204 General Appearance: no acute distress HEENT: normocephalic, atraumatic, anicteric, mucous membranes moist Respiratory/Chest: crackles/rales, rhonchi - bilaterally Cardiovascular: normal rate, regular rhythm, no gallop/murmur, no JVD Abdomen: normal bowel sounds, soft, non tender, no organomegaly Genitourinary: other - + condom catheter Extremities: no cyanosis Skin: no rash Neurologic/Psychiatric: 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 Stable tube and line positions. Impression: Unchanged, over 2 days, findings as above. 07/25 - chest x-ray - IMPRESSION: 1. Persistent patchy bibasilar opacities, most prominent in the left lower lung/retrocardiac region, which may represent subsegmental atelectasis versus infiltrate. 2. No significant change in the prominent interstitial markings. This may be related to mild pulmonary vascular congestion versus interstitial pneumonitis. 3. Persistent small left pleural effusion. Chest -x-ray - 07/27 - Findings: Interim removal of endotracheal and nasogastric tubes. Less optimal inspiration on the current exam. Left lateral pleural thickening persists. Ill-defined interstitial and airspace disease in the left mid and lower lung are probably unchanged allowing for differences and degree of inspiration. Median sternotomy sutures, aortic valve prosthesis, right jugular tunneled dialysis catheter remain. Impression: Interim endotracheal and nasogastric tube removal. Otherwise essentially unchanged over one day, findings as described Chest x-ray - 07/28 - Comparison: 07/27/2018 Findings: Right jugular tunneled dialysis catheter remains. Left sided pleural thickening versus fluid remains. Heart remains borderline enlarged. Findings are unchanged Impression: Unchanged, over one day, findings as above. Microbiology Date/Time Source Procedure Growth Status 07/20/18 20:00 Blood Blood Culture - Final NO GROWTH AFTER 5 DAYS Complete 07/20/18 18:06 Sputum Induced Gram Stain - Final Complete 07/20/18 18:06 Sputum Culture - Final Staphylococcus Aureus - Mrsa Complete 07/23/18 10:50 Urine,Clean Catch Urine Culture - Final Proteus Mirabilis Enterococcus Faecalis Complete Labs Test 07/28/18 18:20 07/29/18 08:15 07/30/18 08:10 07/31/18 07:35 Random Vancomycin Level 18.6 ug/mL 19.4 ug/mL Sodium Level 138 MMOL/L (136-145) 139 MMOL/L (136-145) Potassium Level 4.0 MMOL/L (3.5-5.1) 4.4 MMOL/L (3.5-5.1) Chloride Level 102 MMOL/L (98-107) 103 MMOL/L (98-107) Carbon Dioxide Level 28 MMOL/L (21-32) 28 MMOL/L (21-32) Anion Gap 8 mmol/L (5-15) 8 mmol/L (5-15) Blood Urea Nitrogen 43 mg/dL (7-18) 48 mg/dL (7-18) Creatinine 7.4 MG/DL (0.55-1.30) 8.9 MG/DL (0.55-1.30) Estimat Glomerular Filtration Rate 9.0 mL/min (>60) 7.3 mL/min (>60) Glucose Level 93 MG/DL (74-106) 78 MG/DL (74-106) Calcium Level 8.6 MG/DL (8.5-10.1) 8.5 MG/DL (8.5-10.1) Phosphorus Level 5.2 MG/DL (2.5-4.9) Total Bilirubin 0.3 MG/DL (0.2-1.0) Aspartate Amino Transf (AST/SGOT) 17 U/L (15-37) Alanine Aminotransferase (ALT/SGPT) 17 U/L (12-78) Alkaline Phosphatase 111 U/L (46-116) Total Protein 6.4 G/DL (6.4-8.2) Albumin 2.2 G/DL (3.4-5.0) Globulin 4.2 g/dL Albumin/Globulin Ratio 0.5 (1.0-2.7) White Blood Count 4.2 K/UL (4.8-10.8) Red Blood Count 3.11 M/UL (4.70-6.10) Hemoglobin 9.2 G/DL (14.2-18.0) Hematocrit 29.3 % (42.0-52.0) Mean Corpuscular Volume 94 FL (80-99) Mean Corpuscular Hemoglobin 29.8 PG (27.0-31.0) Mean Corpuscular Hemoglobin Concent 31.6 G/DL (32.0-36.0) Red Cell Distribution Width 15.2 % (11.6-14.8) Platelet Count 159 K/UL (150-450) Mean Platelet Volume 6.5 FL (6.5-10.1) Neutrophils (%) (Auto) 59.8 % (45.0-75.0) Lymphocytes (%) (Auto) 16.7 % (20.0-45.0) Monocytes (%) (Auto) 18.4 % (1.0-10.0) Eosinophils (%) (Auto) 3.3 % (0.0-3.0) Basophils (%) (Auto) 1.9 % (0.0-2.0) Laboratory Tests Test 07/31/18 07:35 Random Vancomycin Level 19.4 ug/mL Current Medications Medications (Trade) Dose Ordered Sig/Praveen Route PRN Reason Start Time Stop Time Status Last Admin Dose Admin Acetaminophen (Tylenol) 650 mg Q4H PRN ORAL fever 07/30/18 06:00 08/27/18 21:59 07/30/18 19:01 Amoxicillin (Amoxil) 500 mg DAILY@2100 ORAL 08/01/18 21:00 08/08/18 20:59 Aspirin (ASA) 162 mg DAILY NG 07/30/18 09:00 08/23/18 08:59 07/31/18 09:37 Chlorhexidine Gluconate (Leslie-Hex 2%) 1 applic DAILY@2000 TOPIC 07/30/18 20:00 08/25/18 19:59 07/30/18 20:28 Dextrose (Dextrose 50%) 25 ml Q30M PRN IV Hypoglycemia 07/30/18 06:00 08/22/18 09:54 Dextrose (Dextrose 50%) 50 ml Q30M PRN IV hypoglycemia 07/30/18 06:00 08/22/18 09:59 Docusate Sodium (Colace) 100 mg TWICE A DAY ORAL 07/31/18 18:00 08/30/18 17:59 Epoetin Yao (Procrit (for ESRD on dialysis)) 10,000 units THU-THU-THU SUBQ 07/30/18 21:00 08/15/18 20:59 07/30/18 21:38 Haloperidol Lactate (Haldol) 5 mg Q4H PRN IM Agitation 07/30/18 06:00 08/27/18 21:59 Insulin Aspart (NovoLOG) EVERY 6 HOURS SUBQ 07/30/18 06:00 08/16/18 20:59 07/31/18 12:23 Lansoprazole (Prevacid) 30 mg DAILY ORAL 07/31/18 09:00 08/30/18 08:59 07/31/18 09:36 Lorazepam (Ativan 2mg/ml 1ml) 1 mg Q4H PRN IM For Anxiety 07/30/18 06:00 08/04/18 21:59 Nitroglycerin (Ntg) 1 patch DAILY TDERMAL 07/30/18 09:00 08/20/18 10:29 07/31/18 09:37 Quetiapine Fumarate (SEROquel) 25 mg Q6H PRN ORAL For Anxiety 07/30/18 10:00 08/27/18 21:59 07/31/18 09:39 Quetiapine Fumarate (SEROquel) 100 mg Q8HR ORAL 07/30/18 06:00 08/15/18 13:59 07/31/18 15:16 Sevelamer Carbonate (Renvela) 1,600 mg THREE TIMES A DAY ORAL 07/30/18 09:00 08/15/18 12:59 07/31/18 12:24 Vancomycin HCl (Vanco rx to dose) 1 ea DAILY PRN MISC Per rx protocol 07/30/18 09:00 08/24/18 18:59 Vancomycin HCl 1 gm/Dextrose 275 ml @ 175 mls/hr ONCE IVPB 07/31/18 17:00 07/31/18 18:35 Olnida Poon MD Jul 31, 2018 16:30
[2018-07-31] MEDS ORDERED: Vancomycin 1 GM in D5W 275 ML IVPB SCH (17:00)
[2018-07-31] MEDS: Docusate 100mg/10ml Liq ORAL SCH (17:11)
--- NOTE | 2018-07-31 17:31 | General Progress Note ---
Assessment/Plan Status: stable Assessment/Plan # Pancytopenia potentially reactive process versus meds related or related to bone marrow process, hepatitis and hiv both reviewed and are negative, has been acute onset since admission --> stable to improving. DOES HAVE SPLENOMEGALY --> us of the abdomen shows splenomegaly++ and can in future repeat as needed --> at this time, does not need a bone marrow biopsy --> on IV iron and epogen sq --> neupogen sq prn if ANC <1000 --> wbc count is better, does not require supportive growth factors --> LABS have been reviewed # Anemia of chronic disease has been evaluated and reviewed, does have evidence of iron deficiency, has been given iron once d/c --> po iron once discharged --> ok for epogen --> on iv iron --> appreciate renal recs --> on HD prn # ESRD as per nephro --> on hd prn, has received while in hospital # + cardiomegaly with PVC --> seen by cards # Health care associated pneumonia --> Pulm consulted, appreciate recs --> Pt extubated since 07/28 --> abx as per ID # Encephalopathy -- can communicate --> has improved slowly --> now able to speak Greatly appreciate consultation! Subjective Date patient seen: Jul 31, 2018 ROS Limited/Unobtainable: Yes Hematologic/Lymphatic: Reports: anemia Allergies: Coded Allergies: No Known Allergies (Verified , 11/24/07) UNABLE TO ASSESS (Unverified , 07/15/18) Subjective VS stable. H/H stable. HD for Thursday. Objective Last 24 Hour Vital Signs Date Time Temp Pulse Resp B/P (MAP) Pulse Ox O2 Delivery O2 Flow Rate FiO2 07/31/18 16:00 98.8 82 20 123/71 (88) 98 98.8 07/31/18 13:13 97.8 87 20 142/61 (88) 96 97.8 07/31/18 12:00 98.2 82 20 143/55 (84) 98.2 07/31/18 09:37 142/61 07/31/18 09:00 Nasal Cannula 2.0 07/31/18 08:00 97.8 87 18 142/61 (88) 96 97.8 07/31/18 04:00 98.5 88 20 103/65 (78) 94 98.5 07/31/18 00:00 98.8 100 20 127/70 (89) 100 98.8 07/30/18 21:00 Nasal Cannula 2.0 07/30/18 20:00 98.2 90 20 152/65 (94) 96 98.2 07/30/18 19:31 101.7 07/30/18 19:05 Nasal Cannula 2.0 28 07/30/18 19:05 97 Nasal Cannula 2.0 28 07/30/18 19:01 103.0 07/30/18 19:00 83 20 Nasal Cannula 2.0 28 07/30/18 18:30 103.5 120/60 (80) 103.5 Intake and Output 07/30/18 07/31/18 19:00 07:00 Intake Total 720 ml 55 ml Output Total 3000 ml Balance -2280 ml 55 ml Intake Oral 720 ml IV Total 55 ml Hemodialysis UF 3000 ml # Voids 3 Laboratory Tests 07/31/18 07:35: Random Vancomycin Level 19.4 Height (Feet): 5 Height (Inches): 8.00 Weight (Pounds): 204 General Appearance: no apparent distress EENT: PERRL/EOMI Neck: normal alignment Cardiovascular: normal peripheral pulses Respiratory/Chest: no respiratory distress Abdomen: no mass Virgil Ward MD Jul 31, 2018 17:31
--- NOTE | 2018-07-31 19:43 | Cardiology Progress Note ---
Assessment/Plan Status: stable Assessment/Plan Assessment: 1) ESRD (end stage renal disease) on dialysis (2) Anemia in chronic kidney disease (CKD) (3) Hypertensive kidney disease (4) Encephalopathy (5) DM (6) Hyperlipemia Plan: Maintain hemodialysis Echocardiogram --> preserved systolic function, mild valvular regurgitation, mild pulmonary hypertension, elevated filling pressures Stress test prior to dc to evaluate chest pain given multiple cardiac risk factors and NSVT - Aspirin Statin No indication for urgent cardiac cath Pulmonary toilet Advance diet Transferred to floor -> mobilize/ambulate/physical therapy Transfusion prn Dispo planning Subjective Cardiovascular: Reports: no symptoms Respiratory: Reports: no symptoms Gastrointestinal/Abdominal: Reports: no symptoms Genitourinary: Reports: no symptoms Subjective Patient transferred to floors, on restraints, s/p transfusion. NO acute events He has tried to pull out lines, he is AAOx1, vitals stable, labs stable. Objective Last 24 Hour Vital Signs Date Time Temp Pulse Resp B/P (MAP) Pulse Ox O2 Delivery O2 Flow Rate FiO2 07/31/18 16:14 Nasal Cannula 2.0 28 07/31/18 16:14 79 20 Nasal Cannula 2.0 28 07/31/18 16:14 98 Nasal Cannula 2.0 28 07/31/18 16:00 98.8 82 20 123/71 (88) 98 98.8 07/31/18 13:13 97.8 87 20 142/61 (88) 96 97.8 07/31/18 12:00 98.2 82 20 143/55 (84) 98.2 07/31/18 09:37 142/61 07/31/18 09:00 Nasal Cannula 2.0 07/31/18 08:00 97.8 87 18 142/61 (88) 96 97.8 07/31/18 04:00 98.5 88 20 103/65 (78) 94 98.5 07/31/18 00:00 98.8 100 20 127/70 (89) 100 98.8 07/30/18 21:00 Nasal Cannula 2.0 07/30/18 20:00 98.2 90 20 152/65 (94) 96 98.2 General Appearance: no apparent distress, agitated, combative EENT: PERRL/EOMI, normal ENT inspection, TMs normal, pharynx normal Neck: non-tender, normal alignment, supple, normal inspection Rhythm: NSR Cardiovascular: normal peripheral pulses, normal rate, regular rhythm Respiratory/Chest: chest wall non-tender, lungs clear, normal breath sounds Abdomen: normal bowel sounds, non tender, soft Extremities: normal range of motion, non-tender 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
[2018-07-31] MEDS: Dyna-Hex 2% Top Sol 2oz TOPIC SCH (21:01)
--- NOTE | 2018-07-31 23:59 | General Progress Note ---
Assessment/Plan Problem List: (1) Encephalopathy due to metabolic factor or toxin SNOMED: [id number] Assessment/Plan seroquel 100mg tid the pt lack capacity to make decisions. haldol and ativan im Subjective Neurologic/Psychiatric: Reports: anxiety, depressed Allergies: Coded Allergies: No Known Allergies (Verified , 11/24/07) UNABLE TO ASSESS (Unverified , 07/15/18) Subjective the pt is less agitated Objective Last 24 Hour Vital Signs Date Time Temp Pulse Resp B/P (MAP) Pulse Ox O2 Delivery O2 Flow Rate FiO2 07/31/18 21:00 Nasal Cannula 2.0 07/31/18 20:02 97 Nasal Cannula 2.0 28 07/31/18 20:02 83 20 Nasal Cannula 2.0 28 07/31/18 20:02 Nasal Cannula 2.0 28 07/31/18 20:00 97.9 82 20 153/66 (95) 97 97.9 07/31/18 16:14 Nasal Cannula 2.0 28 07/31/18 16:14 79 20 Nasal Cannula 2.0 28 07/31/18 16:14 98 Nasal Cannula 2.0 28 07/31/18 16:00 98.8 82 20 123/71 (88) 98 98.8 07/31/18 13:13 97.8 87 20 142/61 (88) 96 97.8 07/31/18 12:00 98.2 82 20 143/55 (84) 98.2 07/31/18 09:37 142/61 07/31/18 09:00 Nasal Cannula 2.0 07/31/18 08:00 97.8 87 18 142/61 (88) 96 97.8 07/31/18 04:00 98.5 88 20 103/65 (78) 94 98.5 07/31/18 00:00 98.8 100 20 127/70 (89) 100 98.8 Intake and Output 07/30/18 07/31/18 19:00 07:00 Intake Total 720 ml 55 ml Output Total 3000 ml Balance -2280 ml 55 ml Intake Oral 720 ml IV Total 55 ml Hemodialysis UF 3000 ml # Voids 3 Laboratory Tests 07/31/18 07:35: Random Vancomycin Level 19.4 Height (Feet): 5 Height (Inches): 8.00 Weight (Pounds): 204 Tara Ward MD Jul 31, 2018 23:59
[2018-08-01 02:12] LABS: APPEARANCE,URINE CLEAR; BILIRUBIN, URINE NEGATIVE (NEGATIVE); COLOR,URINE PALE YELLOW; GLUCOSE, URINE (UA) 2+ (NEGATIVE); KETONES,URINE NEGATIVE (NEGATIVE); LEUKOCYTE ESTERASE ,URINE 1+ (NEGATIVE); NITRITE,URINE NEGATIVE (NEGATIVE); PH,URINE 8 (4.5-8.0); PROTEIN,URINE 4+ (NEGATIVE); UROBILINOGEN,URINE NORMAL MG/DL (0.0-1.0)
[2018-08-01 04:00] VITALS: BP 146/59
[2018-08-01] MEDS: NovoLOG Insulin Flexpen SUBQ SCH ×4 (05:55→18:14)
[2018-08-01] MEDS: Renvela 800mg Pkt ORAL SCH ×3 (09:18→18:13)
[2018-08-01] MEDS: Aspirin Baby 81mg NG SCH (09:18)
[2018-08-01] MEDS: Docusate 100mg/10ml Liq ORAL SCH ×2 (09:18→18:13)
[2018-08-01] MEDS: Nitroglycerin Patch 0.4mg TDERMAL SCH (09:19)
--- NOTE | 2018-08-01 10:12 | Diagnostic Imaging Report ---
INDICATION: Infection COMPARISON: Chest x-ray dated 07/28/18 FINDINGS: Single frontal view demonstrates enlarged heart size. Status post median sternotomy. Opacification of the left lower lung zone, cannot exclude an underlying effusion. Increased pulmonary markings suggestive of congestion. Right internal jugular catheter with tip in the midsuperior vena cava. The visualized osseous structures are within normal limits. IMPRESSION: No significant change. Left lower lung zone opacity, cannot exclude underlying effusion. Stable right internal jugular catheter.
[2018-08-01 12:00] VITALS: BP 177/68
--- NOTE | 2018-08-01 13:40 | General Progress Note ---
Assessment/Plan Assessment/Plan Acute hypercapnic respiratory failure - resolving, Pulm following Severe sepsis due to suspected gram negative pneumonia, continue vanco with HD + amoxicillin oral, ID followup appreciated. Acute metabolic encephalopathy superimposed on dementia and psychosis, improved , will attempt to discontinue wrist restraints today. ESRD on HD, continue HD per Nephrology Metabolic acidosis, resolved Acute on chronic diastolic heart failure, resolving, fluid management with HD. Cards following NSTEMI type 2, continue ASA, stress test held for now per Cardiology Hypertensive heart and renal disease, continue metoprolol Pancytopenia likely due to BM suppression, Hematology following Subjective Date patient seen: Aug 01, 2018 Time patient seen: 13:45 ROS Limited/Unobtainable: Yes Cardiovascular: Denies: chest pain Respiratory: Denies: cough Gastrointestinal/Abdominal: Denies: abdominal pain Allergies: Coded Allergies: No Known Allergies (Verified , 11/24/07) UNABLE TO ASSESS (Unverified , 07/15/18) Subjective Medicine followup for multiple medical problems including: Acute hypercapnic respiratory failure due to suspected gram negative pneumonia, acute metabolic encephalopathy, acute on chronic diastolic CHF. Mentation improving, no acute issues overnight per nursing. Objective Last 24 Hour Vital Signs Date Time Temp Pulse Resp B/P (MAP) Pulse Ox O2 Delivery O2 Flow Rate FiO2 08/01/18 13:09 177/68 08/01/18 12:00 97.7 95 20 177/68 (104) 98 97.7 08/01/18 09:19 146/59 08/01/18 09:00 Nasal Cannula 2.0 08/01/18 04:00 96.3 83 18 146/59 (88) 98 96.3 07/31/18 21:00 Nasal Cannula 2.0 07/31/18 20:02 97 Nasal Cannula 2.0 28 07/31/18 20:02 83 20 Nasal Cannula 2.0 28 07/31/18 20:02 Nasal Cannula 2.0 28 07/31/18 20:00 97.9 82 20 153/66 (95) 97 97.9 07/31/18 16:14 Nasal Cannula 2.0 28 07/31/18 16:14 79 20 Nasal Cannula 2.0 28 07/31/18 16:14 98 Nasal Cannula 2.0 28 07/31/18 16:00 98.8 82 20 123/71 (88) 98 98.8 Intake and Output 07/31/18 08/01/18 19:00 07:00 Intake Total 720 ml Output Total 200 ml Balance 520 ml Intake Oral 720 ml Output Urine Total 200 ml # Voids 2 # Bowel Movements 1 Laboratory Tests 08/01/18 01:18: Urine Color Pale yellow, Urine Appearance Clear, Urine pH 8, Urine Specific [place] 1.010, Urine Protein 4+H, Urine Glucose (UA) 2+H, Urine Ketones Negative , Urine Blood Negative, Urine Nitrite Negative, Urine Bilirubin Negative, Urine Urobilinogen Normal, Urine Leukocyte Esterase 1+H, Urine RBC 2-4H, Urine WBC 2-4 , Urine Squamous Epithelial Cells Few, Urine Bacteria Occasional Height (Feet): 5 Height (Inches): 8.00 Weight (Pounds): 205 General Appearance: alert, confused Cardiovascular: normal rate, regular rhythm Respiratory/Chest: chest wall non-tender, lungs clear, normal breath sounds Abdomen: non tender, soft Adam Jones MD Aug 01, 2018 13:40
[2018-08-01] MEDS ORDERED: HydrALAZINE 25mg tab ORAL PRN (13:45)
--- NOTE | 2018-08-01 13:46 | Nephrology Progress Note ---
Assessment/Plan Problem List: (1) Acute respiratory failure Assessment: on presentation- worsened (2) ESRD (end stage renal disease) on dialysis (3) Hyperkalemia (4) CHF (congestive heart failure) (5) Anemia in chronic kidney disease (CKD) Assessment HTN OOC ESRD has permacath hyperkalemia Shortness of breath, CHF NOW ACUTE RESPIRATORY FAILURE , ON VENT Encephalopathy condition: 1) ESRD (end stage renal disease) on dialysis (2) Anemia in chronic kidney disease (CKD) (3) Hypertensive kidney disease (4) Encephalopathy (5) DM (6) Hyperlipemia Plan post extubation care Dialysis next 08/02 resume Lopressor PRN Hydralazine in med surg now transfused optimize cardiac status 2 D echo noted adjust BP meds adjust BS meds phos binders asa nitrate per orders Subjective ROS Limited/Unobtainable: No Constitutional: Reports: malaise Objective Objective Last 24 Hour Vital Signs Date Time Temp Pulse Resp B/P (MAP) Pulse Ox O2 Delivery O2 Flow Rate FiO2 08/01/18 13:09 177/68 08/01/18 12:00 97.7 95 20 177/68 (104) 98 97.7 08/01/18 09:19 146/59 08/01/18 09:00 Nasal Cannula 2.0 08/01/18 04:00 96.3 83 18 146/59 (88) 98 96.3 07/31/18 21:00 Nasal Cannula 2.0 07/31/18 20:02 97 Nasal Cannula 2.0 28 07/31/18 20:02 83 20 Nasal Cannula 2.0 28 07/31/18 20:02 Nasal Cannula 2.0 28 07/31/18 20:00 97.9 82 20 153/66 (95) 97 97.9 07/31/18 16:14 Nasal Cannula 2.0 28 07/31/18 16:14 79 20 Nasal Cannula 2.0 28 07/31/18 16:14 98 Nasal Cannula 2.0 28 07/31/18 16:00 98.8 82 20 123/71 (88) 98 98.8 Intake and Output 07/31/18 08/01/18 19:00 07:00 Intake Total 720 ml Output Total 200 ml Balance 520 ml Intake Oral 720 ml Output Urine Total 200 ml # Voids 2 # Bowel Movements 1 Laboratory Tests 08/01/18 01:18: Urine Color Pale yellow, Urine Appearance Clear, Urine pH 8, Urine Specific [place] 1.010, Urine Protein 4+H, Urine Glucose (UA) 2+H, Urine Ketones Negative , Urine Blood Negative, Urine Nitrite Negative, Urine Bilirubin Negative, Urine Urobilinogen Normal, Urine Leukocyte Esterase 1+H, Urine RBC 2-4H, Urine WBC 2-4 , Urine Squamous Epithelial Cells Few, Urine Bacteria Occasional Height (Feet): 5 Height (Inches): 8.00 Weight (Pounds): 205 General Appearance: no apparent distress Cardiovascular: tachycardia Respiratory/Chest: decreased breath sounds Abdomen: soft Objective no change Mirza Conde MD Aug 01, 2018 13:46
[2018-08-01] MEDS ORDERED: Metoprolol Tartrate 12.5mg TAB ORAL SCH (13:52)
[2018-08-01 14:45] VITALS: BP 177/68
--- NOTE | 2018-08-01 14:50 | Pulmonology Progress Note ---
Assessment/Plan Assessment/Plan PULMONARY PROGRESS NOTE Assessment/Plan Problems: (1) Encephalopathy (2) Anemia in chronic kidney disease (CKD) (3) ESRD (end stage renal disease) on dialysis (4) HTN (hypertension) (5) Diabetes mellitus (6) Pneumonia Assessment/Plan CXR: No significant change Transfused PRBC yesterday sputum MRSA on Zosyn abx as per ID sliding scale still on restrains dvt prophylaxis. Subjective Allergies: Coded Allergies: No Known Allergies (Verified , 11/24/07) UNABLE TO ASSESS (Unverified , 07/15/18) Objective Last 24 Hour Vital Signs Date Time Temp Pulse Resp B/P (MAP) Pulse Ox O2 Delivery O2 Flow Rate FiO2 07/31/18 09:37 142/61 07/31/18 04:00 98.5 88 20 103/65 (78) 94 98.5 07/31/18 00:00 98.8 100 20 127/70 (89) 100 98.8 07/30/18 21:00 Nasal Cannula 2.0 07/30/18 20:00 98.2 90 20 152/65 (94) 96 98.2 07/30/18 19:31 101.7 07/30/18 19:05 Nasal Cannula 2.0 28 07/30/18 19:05 97 Nasal Cannula 2.0 28 07/30/18 19:01 103.0 07/30/18 19:00 83 20 Nasal Cannula 2.0 28 07/30/18 18:30 103.5 120/60 (80) 103.5 07/30/18 16:00 98.7 91 16 99 98.7 07/30/18 16:00 98.7 91 16 167/84 (111) 99 98.7 Intake and Output 07/30/18 07/31/18 19:00 07:00 Intake Total 720 ml 55 ml Output Total 3000 ml Balance -2280 ml 55 ml Intake Oral 720 ml IV Total 55 ml Hemodialysis UF 3000 ml # Voids 3 Laboratory Tests 07/31/18 07:35: Random Vancomycin Level 19.4 Current Medications Medications (Trade) Dose Ordered Sig/Praveen Route PRN Reason Start Time Stop Time Status Last Admin Dose Admin Acetaminophen (Tylenol) 650 mg Q4H PRN ORAL fever 07/30/18 06:00 08/27/18 21:59 07/30/18 19:01 Aspirin (ASA) 162 mg DAILY NG 10/5/18 09:00 08/23/18 08:59 07/31/18 09:37 Chlorhexidine Gluconate (Leslie-Hex 2%) 1 applic DAILY@2000 TOPIC 07/30/18 20:00 08/25/18 19:59 07/30/18 20:28 Dextrose (Dextrose 50%) 25 ml Q30M PRN IV Hypoglycemia 07/30/18 06:00 08/22/18 09:54 Dextrose (Dextrose 50%) 50 ml Q30M PRN IV hypoglycemia 07/30/18 06:00 08/22/18 09:59 Docusate Sodium (Colace) 100 mg TWICE A DAY ORAL 07/30/18 09:00 08/28/18 17:59 07/31/18 09:36 Epoetin Yao (Procrit (for ESRD on dialysis)) 10,000 units THU-THU-THU SUBQ 07/30/18 21:00 08/15/18 20:59 07/30/18 21:38 Haloperidol Lactate (Haldol) 5 mg Q4H PRN IM Agitation 07/30/18 06:00 08/27/18 21:59 Insulin Aspart (NovoLOG) EVERY 6 HOURS SUBQ 07/30/18 06:00 08/16/18 20:59 07/30/18 18:58 Lansoprazole (Prevacid) 30 mg DAILY ORAL 07/31/18 09:00 08/30/18 08:59 07/31/18 09:36 Lorazepam (Ativan 2mg/ml 1ml) 1 mg Q4H PRN IM For Anxiety 07/30/18 06:00 08/04/18 21:59 Nitroglycerin (Ntg) 1 patch DAILY TDERMAL 07/30/18 09:00 08/20/18 10:29 07/31/18 09:37 Piperacillin Sod/ Tazobactam Sod 2.25 gm/Dextrose 55 ml @ 110 mls/hr Q8H IV 07/30/18 11:30 08/01/18 19:29 07/31/18 02:54 Quetiapine Fumarate (SEROquel) 25 mg Q6H PRN ORAL For Anxiety 07/30/18 10:00 08/27/18 21:59 07/31/18 09:39 Quetiapine Fumarate (SEROquel) 100 mg Q8HR ORAL 07/30/18 06:00 08/15/18 13:59 07/31/18 05:41 Sevelamer Carbonate (Renvela) 1,600 mg THREE TIMES A DAY ORAL 07/30/18 09:00 08/15/18 12:59 07/31/18 09:37 Vancomycin HCl (Vanco rx to dose) 1 ea DAILY PRN MISC Per rx protocol 07/30/18 09:00 08/24/18 18:59 Vancomycin HCl 1 gm/Dextrose 275 ml @ 175 mls/hr ONCE IVPB 07/31/18 17:00 07/31/18 18:35 Subjective ROS Limited/Unobtainable: No Allergies: Coded Allergies: No Known Allergies (Verified , 11/24/07) UNABLE TO ASSESS (Unverified , 07/15/18) Objective Last 24 Hour Vital Signs Date Time Temp Pulse Resp B/P (MAP) Pulse Ox O2 Delivery O2 Flow Rate FiO2 08/01/18 14:45 87 177/68 (104) 08/01/18 13:09 177/68 08/01/18 12:00 97.7 95 20 177/68 (104) 98 97.7 08/01/18 09:19 146/59 08/01/18 09:00 Nasal Cannula 2.0 08/01/18 04:00 96.3 83 18 146/59 (88) 98 96.3 07/31/18 21:00 Nasal Cannula 2.0 07/31/18 20:02 97 Nasal Cannula 2.0 28 07/31/18 20:02 83 20 Nasal Cannula 2.0 28 07/31/18 20:02 Nasal Cannula 2.0 28 07/31/18 20:00 97.9 82 20 153/66 (95) 97 97.9 07/31/18 16:14 Nasal Cannula 2.0 28 07/31/18 16:14 79 20 Nasal Cannula 2.0 28 07/31/18 16:14 98 Nasal Cannula 2.0 28 07/31/18 16:00 98.8 82 20 123/71 (88) 98 98.8 Intake and Output 07/31/18 08/01/18 19:00 07:00 Intake Total 720 ml Output Total 200 ml Balance 520 ml Intake Oral 720 ml Output Urine Total 200 ml # Voids 2 # Bowel Movements 1 Laboratory Tests 08/01/18 01:18: Urine Color Pale yellow, Urine Appearance Clear, Urine pH 8, Urine Specific [place] 1.010, Urine Protein 4+H, Urine Glucose (UA) 2+H, Urine Ketones Negative , Urine Blood Negative, Urine Nitrite Negative, Urine Bilirubin Negative, Urine Urobilinogen Normal, Urine Leukocyte Esterase 1+H, Urine RBC 2-4H, Urine WBC 2-4 , Urine Squamous Epithelial Cells Few, Urine Bacteria Occasional Current Medications Medications (Trade) Dose Ordered Sig/Praveen Route PRN Reason Start Time Stop Time Status Last Admin Dose Admin Acetaminophen (Tylenol) 650 mg Q4H PRN ORAL fever 07/30/18 06:00 08/27/18 21:59 07/30/18 19:01 Amoxicillin (Amoxil) 500 mg DAILY@2100 ORAL 08/01/18 21:00 08/08/18 20:59 Aspirin (ASA) 162 mg DAILY NG 07/30/18 09:00 08/23/18 08:59 08/01/18 09:18 Chlorhexidine Gluconate (Leslie-Hex 2%) 1 applic DAILY@2000 TOPIC 07/30/18 20:00 08/25/18 19:59 07/31/18 21:01 Dextrose (Dextrose 50%) 25 ml Q30M PRN IV Hypoglycemia 07/30/18 06:00 08/22/18 09:54 Dextrose (Dextrose 50%) 50 ml Q30M PRN IV hypoglycemia 07/30/18 06:00 08/22/18 09:59 Docusate Sodium (Colace) 100 mg TID ORAL 08/01/18 18:00 08/30/18 17:59 Epoetin Yao (Procrit (for ESRD on dialysis)) 10,000 units THU-THU-THU SUBQ 07/30/18 21:00 08/15/18 20:59 07/30/18 21:38 Haloperidol Lactate (Haldol) 5 mg Q4H PRN IM Agitation 07/30/18 06:00 08/27/18 21:59 Hydralazine HCl (Apresoline) 25 mg Q4H PRN ORAL bp over 160 syst 08/01/18 13:45 08/31/18 13:44 Insulin Aspart (NovoLOG) EVERY 6 HOURS SUBQ 07/30/18 06:00 08/16/18 20:59 07/31/18 12:23 Lansoprazole (Prevacid) 30 mg DAILY ORAL 07/31/18 09:00 08/30/18 08:59 08/01/18 09:18 Lorazepam (Ativan 2mg/ml 1ml) 1 mg Q4H PRN IM For Anxiety 07/30/18 06:00 08/04/18 21:59 Metoprolol Tartrate (Lopressor) 12.5 mg ONCE ORAL 08/01/18 13:52 08/01/18 14:52 Metoprolol Tartrate (Lopressor) 12.5 mg Q12HR ORAL 08/01/18 21:00 08/31/18 20:59 Nitroglycerin (Ntg) 1 patch DAILY TDERMAL 07/30/18 09:00 08/20/18 10:29 08/01/18 09:19 Quetiapine Fumarate (SEROquel) 25 mg Q6H PRN ORAL For Anxiety 07/30/18 10:00 08/27/18 21:59 07/31/18 09:39 Quetiapine Fumarate (SEROquel) 100 mg Q8HR ORAL 07/30/18 06:00 08/15/18 13:59 08/01/18 05:49 Sevelamer Carbonate (Renvela) 1,600 mg THREE TIMES A DAY ORAL 07/30/18 09:00 08/15/18 12:59 08/01/18 13:09 Vancomycin HCl (Vanco rx to dose) 1 ea DAILY PRN MISC Per rx protocol 07/30/18 09:00 08/24/18 18:59 Yimi Mendez MD Aug 01, 2018 14:50
[2018-08-01 16:00] VITALS: BP 164/74
--- NOTE | 2018-08-01 18:48 | Cardiology Progress Note ---
Assessment/Plan Status: stable Assessment/Plan Assessment: 1) ESRD (end stage renal disease) on dialysis (2) Anemia in chronic kidney disease (CKD) (3) Hypertensive kidney disease (4) Encephalopathy (5) DM (6) Hyperlipemia Plan: Maintain hemodialysis Echocardiogram --> preserved systolic function, mild valvular regurgitation, mild pulmonary hypertension, elevated filling pressures Stress test prior to dc to evaluate chest pain given multiple cardiac risk factors and NSVT - Aspirin Statin No indication for urgent cardiac cath Pulmonary toilet Advance diet Transferred to floor -> mobilize/ambulate/physical therapy Transfusion prn Dispo planning Subjective Cardiovascular: Reports: no symptoms Respiratory: Reports: no symptoms Gastrointestinal/Abdominal: Reports: no symptoms Genitourinary: Reports: no symptoms Subjective Restraints removed, plan for HD thursday, no acute events, resting comfortably Objective Last 24 Hour Vital Signs Date Time Temp Pulse Resp B/P (MAP) Pulse Ox O2 Delivery O2 Flow Rate FiO2 08/01/18 16:00 97.7 91 21 164/74 (104) 100 97.7 08/01/18 14:53 87 177/68 08/01/18 14:45 87 177/68 (104) 08/01/18 13:09 177/68 08/01/18 12:00 97.7 95 20 177/68 (104) 98 97.7 08/01/18 09:19 146/59 08/01/18 09:00 Nasal Cannula 2.0 08/01/18 04:00 96.3 83 18 146/59 (88) 98 96.3 07/31/18 21:00 Nasal Cannula 2.0 07/31/18 20:02 97 Nasal Cannula 2.0 28 07/31/18 20:02 83 20 Nasal Cannula 2.0 28 07/31/18 20:02 Nasal Cannula 2.0 28 07/31/18 20:00 97.9 82 20 153/66 (95) 97 97.9 General Appearance: no apparent distress, alert EENT: PERRL/EOMI, normal ENT inspection, TMs normal, pharynx normal Neck: non-tender, normal alignment, supple, normal inspection, no JVD Rhythm: NSR Cardiovascular: normal peripheral pulses, normal rate, regular rhythm Respiratory/Chest: chest wall non-tender, lungs clear, normal breath sounds, no respiratory distress, no accessory muscle use Abdomen: normal bowel sounds, non tender, soft, no organomegaly, no mass Extremities: normal range of motion, non-tender, normal inspection, no calf tenderness, no swelling 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: 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 packer II-XII grossly normal, no motor/sensory deficits, oriented x 3 , responsive Intake and Output 07/31/18 08/01/18 19:00 07:00 Intake Total 720 ml Output Total 200 ml Balance 520 ml Intake Oral 720 ml Output Urine Total 200 ml # Voids 2 # Bowel Movements 1 Laboratory Tests Test 08/01/18 01:18 Urine Color Pale yellow Urine Appearance Clear Urine pH 8 (4.5-8.0) Urine Specific [place] 1.010 (1.005-1.035) Urine Protein 4+ (NEGATIVE) H Urine Glucose (UA) 2+ (NEGATIVE) H Urine Ketones Negative (NEGATIVE) Urine Blood Negative (NEGATIVE) Urine Nitrite Negative (NEGATIVE) Urine Bilirubin Negative (NEGATIVE) Urine Urobilinogen Normal MG/DL (0.0-1.0) Urine Leukocyte Esterase 1+ (NEGATIVE) H Urine RBC 2-4 /HPF (0 - 0) H Urine WBC 2-4 /HPF (0 - 0) Urine Squamous Epithelial Cells Few /LPF (NONE/OCC) Urine Bacteria Occasional /HPF (NONE) Yimi Luevano MD Aug 01, 2018 18:48
--- NOTE | 2018-08-01 19:57 | General Progress Note ---
Assessment/Plan Status: stable Assessment/Plan # Pancytopenia potentially reactive process versus meds related or related to bone marrow process, hepatitis and hiv both reviewed and are negative, has been acute onset since admission --> stable to improving. DOES HAVE SPLENOMEGALY --> us of the abdomen shows splenomegaly++ and can in future repeat as needed --> at this time, does not need a bone marrow biopsy --> on IV iron and epogen sq --> neupogen sq prn if ANC <1000 --> wbc count is better, does not require supportive growth factors --> LABS have been reviewed # Anemia of chronic disease has been evaluated and reviewed, does have evidence of iron deficiency, has been given iron once d/c --> po iron once discharged --> ok for epogen --> on iv iron --> appreciate renal recs --> on HD prn # ESRD as per nephro --> on hd prn, has received while in hospital # + cardiomegaly with PVC --> seen by cards # Health care associated pneumonia --> Pulm consulted, appreciate recs --> Pt extubated since 07/28 --> abx as per ID # Encephalopathy -- can communicate --> has improved slowly --> now able to speak Greatly appreciate consultation! Subjective Date patient seen: Aug 01, 2018 ROS Limited/Unobtainable: Yes Hematologic/Lymphatic: Reports: anemia Allergies: Coded Allergies: No Known Allergies (Verified , 11/24/07) UNABLE TO ASSESS (Unverified , 07/15/18) Subjective Pt awake and alert. Pt refusing blood draw. No acute events. Objective Last 24 Hour Vital Signs Date Time Temp Pulse Resp B/P (MAP) Pulse Ox O2 Delivery O2 Flow Rate FiO2 08/01/18 16:00 97.7 91 21 164/74 (104) 100 97.7 08/01/18 14:53 87 177/68 08/01/18 14:45 87 177/68 (104) 08/01/18 13:09 177/68 08/01/18 12:00 97.7 95 20 177/68 (104) 98 97.7 08/01/18 09:19 146/59 08/01/18 09:00 Nasal Cannula 2.0 08/01/18 04:00 96.3 83 18 146/59 (88) 98 96.3 07/31/18 21:00 Nasal Cannula 2.0 07/31/18 20:02 97 Nasal Cannula 2.0 28 07/31/18 20:02 83 20 Nasal Cannula 2.0 28 07/31/18 20:02 Nasal Cannula 2.0 28 07/31/18 20:00 97.9 82 20 153/66 (95) 97 97.9 Intake and Output 07/31/18 08/01/18 19:00 07:00 Intake Total 720 ml Output Total 200 ml Balance 520 ml Intake Oral 720 ml Output Urine Total 200 ml # Voids 2 # Bowel Movements 1 Laboratory Tests 08/01/18 01:18: Urine Color Pale yellow, Urine Appearance Clear, Urine pH 8, Urine Specific [place] 1.010, Urine Protein 4+H, Urine Glucose (UA) 2+H, Urine Ketones Negative , Urine Blood Negative, Urine Nitrite Negative, Urine Bilirubin Negative, Urine Urobilinogen Normal, Urine Leukocyte Esterase 1+H, Urine RBC 2-4H, Urine WBC 2-4 , Urine Squamous Epithelial Cells Few, Urine Bacteria Occasional Height (Feet): 5 Height (Inches): 8.00 Weight (Pounds): 205 General Appearance: no apparent distress, alert EENT: PERRL/EOMI Neck: normal alignment Cardiovascular: normal peripheral pulses Respiratory/Chest: no respiratory distress Abdomen: soft Virgil Ward MD Aug 01, 2018 19:56
[2018-08-01 20:00] VITALS: BP 162/89
[2018-08-01] MEDS: Metoprolol Tartrate 12.5mg TAB ORAL SCH (20:53)
[2018-08-01] MEDS: Dyna-Hex 2% Top Sol 2oz TOPIC SCH (20:54)
[2018-08-02 04:00] VITALS: BP 155/66
[2018-08-02] MEDS: NovoLOG Insulin Flexpen SUBQ SCH ×5 (06:00→23:57)
--- NOTE | 2018-08-02 07:13 | General Progress Note ---
Assessment/Plan Assessment/Plan # Pancytopenia potentially reactive process versus meds related or related to bone marrow process, hepatitis and hiv both reviewed and are negative, has been acute onset since admission --> stable to improving. DOES HAVE SPLENOMEGALY, now has improved --> us of the abdomen shows splenomegaly++ and can in future repeat as needed --> at this time, does not need a bone marrow biopsy --> on IV iron and epogen sq --> neupogen sq prn if ANC <1000 --> wbc count is better, does not require supportive growth factors --> LABS have been reviewed # Anemia of chronic disease has been evaluated and reviewed, does have evidence of iron deficiency, has been given iron once d/c --> po iron once discharged as does have iron deficiency component as ferritin is <500 --> ok for epogen --> on iv iron --> appreciate renal recs --> on HD prn # ESRD as per nephro --> on hd prn, has received while in hospital # + cardiomegaly with PVC --> seen by cards # Health care associated pneumonia --> Pulm consulted, appreciate recs --> Pt extubated since 07/28 --> abx as per ID # Encephalopathy -- can communicate --> has improved slowly --> now able to speak Greatly appreciate consultation! Subjective HEENT: Denies: no symptoms, eye pain, blurred vision, tearing, double vision, ear pain, ear discharge, nose pain, nose congestion, throat pain, throat swelling, mouth pain, mouth swelling, other Cardiovascular: Denies: no symptoms, chest pain, edema, irregular heart rate, lightheadedness, palpitations, syncope, other Respiratory: Denies: no symptoms, cough, orthopnea, shortness of breath, SOB with excertion, SOB at rest, sputum, stridor, wheezing, other Gastrointestinal/Abdominal: Denies: no symptoms, abdomen distended, abdominal pain, black stools, tarry stools, blood in stool, constipated, diarrhea, difficulty swallowing, nausea, poor appetite, poor fluid intake, rectal bleeding , vomiting, other Genitourinary: Denies: no symptoms, burning, discharge, frequency, flank pain, hematuria, incontinence, pain, urgency, other Neurologic/Psychiatric: Denies: no symptoms, anxiety, depressed, emotional problems, headache, numbness, paresthesia, pre-existing deficit, seizure, tingling, tremors, weakness, other Endocrine: Denies: no symptoms, excessive sweating, flushing, intolerance to cold, intolerance to heat, increased hunger, increased thirst, increased urine, unexplained weight gain, unexplained weight loss, other Hematologic/Lymphatic: Denies: no symptoms, anemia, easy bleeding, easy bruising, other Allergies: Coded Allergies: No Known Allergies (Verified , 11/24/07) UNABLE TO ASSESS (Unverified , 07/15/18) Subjective Pt awake and alert. No acute events. Objective Last 24 Hour Vital Signs Date Time Temp Pulse Resp B/P (MAP) Pulse Ox O2 Delivery O2 Flow Rate FiO2 08/02/18 04:00 99.4 87 16 155/66 (95) 95 99.4 08/01/18 21:00 Nasal Cannula 2.0 08/01/18 20:53 88 162/89 08/01/18 20:00 98.0 88 20 162/89 (113) 100 98.0 08/01/18 16:00 97.7 91 21 164/74 (104) 100 97.7 08/01/18 14:53 87 177/68 08/01/18 14:45 87 177/68 (104) 08/01/18 13:09 177/68 08/01/18 12:00 97.7 95 20 177/68 (104) 98 97.7 08/01/18 09:19 146/59 08/01/18 09:00 Nasal Cannula 2.0 Intake and Output 08/01/18 08/02/18 19:00 07:00 Output Total 500 ml 250 ml Balance -500 ml -250 ml Output Urine Total 500 ml 250 ml # Voids 2 Height (Feet): 5 Height (Inches): 8.00 Weight (Pounds): 208 General Appearance: no apparent distress EENT: normal ENT inspection Neck: normal alignment Cardiovascular: normal rate Respiratory/Chest: normal breath sounds Abdomen: non tender Extremities: normal inspection Edema: 1+ Leg (L), 1+ Leg (R) Neurologic: signals collector/analyst II-XII 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
[2018-08-02] MEDS: Docusate 100mg/10ml Liq ORAL SCH ×3 (09:38→17:18)
[2018-08-02] MEDS: Renvela 800mg Pkt ORAL SCH ×3 (09:39→17:19)
[2018-08-02] MEDS: Aspirin Baby 81mg NG SCH (09:39)
[2018-08-02] MEDS: Metoprolol Tartrate 12.5mg TAB ORAL SCH ×2 (09:39→22:05)
[2018-08-02] MEDS: Nitroglycerin Patch 0.4mg TDERMAL SCH (09:40)
--- NOTE | 2018-08-02 11:42 | General Progress Note ---
Assessment/Plan Problem List: (1) ESRD (end stage renal disease) on dialysis ICD Codes: N18.6 - End stage renal disease; Z99.2 - Dependence on renal dialysis SNOMED: 453466492 (2) CHF (congestive heart failure) ICD Codes: I50.9 - Heart failure, unspecified SNOMED: 46939198 (3) History of hypertension ICD Codes: Z86.79 - History of hypertension SNOMED: 874387700 (4) Pleural effusion ICD Codes: J90 - Pleural effusion, not elsewhere classified SNOMED: 42847947 (5) Diabetes mellitus ICD Codes: E11.9 - Diabetes mellitus SNOMED: 72930952 (6) Acute respiratory failure ICD Codes: J96.00 - Acute respiratory failure, unspecified whether with hypoxia or hypercapnia SNOMED: 86564838 (7) Encephalopathy ICD Codes: G93.40 - Encephalopathy, unspecified SNOMED: 00696247 (8) Noncompliance ICD Codes: Z91.19 - Patient's noncompliance with other medical treatment and regimen SNOMED: 9126923 Assessment/Plan Acute metabolic encephalopathy superimposed on dementia and psychosis, improved - patient has been off restraints since yesterday and doing well s/p Severe sepsis due to suspected gram negative pneumonia - continue vanco with HD + amoxicillin oral - today is day , abs will be de-escalated tmw. if patient cleared by ID and has no new signs of sepsis s/p Acute hypercapnic respiratory failure - resolving, Pulm following ESRD on HD - patient is due for HD today by Nephrology Metabolic acidosis, resolved Acute on chronic diastolic heart failure,resolved. fluid management with HD. Cards following NSTEMI type 2, continue ASA, stress test held for now per Cardiology - Patient had elevated troponins of level 1-2 earlier in hospital course and cards recs stress test once stable Hypertensive heart and renal disease, continue metoprolol Pancytopenia likely due to BM suppression, Hematology following Subjective Date patient seen: Aug 02, 2018 Time patient seen: 10:40 ROS Limited/Unobtainable: Yes - patient encephalopathic and does not answer questions apporpriately Allergies: Coded Allergies: No Known Allergies (Verified , 11/24/07) UNABLE TO ASSESS (Unverified , 07/15/18) Subjective per RN patient did well overnight without restraints, however today he is refusing medications, lab draws and physical exam. Objective Last 24 Hour Vital Signs Date Time Temp Pulse Resp B/P (MAP) Pulse Ox O2 Delivery O2 Flow Rate FiO2 08/02/18 08:30 Nasal Cannula 2.0 08/02/18 04:00 99.4 87 16 155/66 (95) 95 99.4 08/01/18 21:00 Nasal Cannula 2.0 08/01/18 20:53 88 162/89 08/01/18 20:00 98.0 88 20 162/89 (113) 100 98.0 08/01/18 16:00 97.7 91 21 164/74 (104) 100 97.7 08/01/18 14:53 87 177/68 08/01/18 14:45 87 177/68 (104) 08/01/18 13:09 177/68 08/01/18 12:00 97.7 95 20 177/68 (104) 98 97.7 Intake and Output 08/01/18 08/02/18 19:00 07:00 Output Total 500 ml 250 ml Balance -500 ml -250 ml Output Urine Total 500 ml 250 ml # Voids 2 Laboratory Tests 08/02/18 04:00: Arterial Blood pH 7.334L, Arterial Blood Partial Pressure CO2 48.2H, Arterial Blood Partial Pressure O2 86.1, Arterial Blood HCO3 25.1, Arterial Blood Oxygen Saturation 95.1, Arterial Blood Base Excess -0.9, Calvin Test Positive Height (Feet): 5 Height (Inches): 8.00 Weight (Pounds): 208 General Appearance: WD/WN, no apparent distress, alert, confused EENT: normal ENT inspection Neck: normal alignment, normal inspection Cardiovascular: other - UTO 2/2 patient refusal Respiratory/Chest: other - normal appearance, exam limited 2/2 patient refusal Abdomen: other - UTO 2/2 patient refusal ; appears wnl Extremities: other - appears wnl, limited 2/2 patient refusal Objective objective is limited 2/2 patient is refusing physical exam. Kasey Koch DO Aug 02, 2018 11:42
--- NOTE | 2018-08-02 12:20 | Nephrology Progress Note ---
Assessment/Plan Problem List: (1) Acute respiratory failure Assessment: on presentation- worsened (2) ESRD (end stage renal disease) on dialysis (3) Hyperkalemia (4) CHF (congestive heart failure) (5) Anemia in chronic kidney disease (CKD) Assessment HTN OOC- ESRD has permacath hyperkalemia Shortness of breath, CHF NOW ACUTE RESPIRATORY FAILURE , ON VENT Encephalopathy condition: 1) ESRD (end stage renal disease) on dialysis (2) Anemia in chronic kidney disease (CKD) (3) Hypertensive kidney disease (4) Encephalopathy (5) DM (6) Hyperlipemia Plan post extubation care Dialysis next 08/02 resume Lopressor PRN Hydralazine in med surg now transfused optimize cardiac status 2 D echo noted adjust BP meds adjust BS meds phos binders asa nitrate Dc planning per orders Subjective ROS Limited/Unobtainable: No Constitutional: Reports: malaise Objective Objective Last 24 Hour Vital Signs Date Time Temp Pulse Resp B/P (MAP) Pulse Ox O2 Delivery O2 Flow Rate FiO2 08/02/18 08:30 Nasal Cannula 2.0 08/02/18 04:00 99.4 87 16 155/66 (95) 95 99.4 08/01/18 21:00 Nasal Cannula 2.0 08/01/18 20:53 88 162/89 08/01/18 20:00 98.0 88 20 162/89 (113) 100 98.0 08/01/18 16:00 97.7 91 21 164/74 (104) 100 97.7 08/01/18 14:53 87 177/68 08/01/18 14:45 87 177/68 (104) 08/01/18 13:09 177/68 Intake and Output 08/01/18 08/02/18 19:00 07:00 Output Total 500 ml 250 ml Balance -500 ml -250 ml Output Urine Total 500 ml 250 ml # Voids 2 Laboratory Tests 08/02/18 04:00: Arterial Blood pH 7.334L, Arterial Blood Partial Pressure CO2 48.2H, Arterial Blood Partial Pressure O2 86.1, Arterial Blood HCO3 25.1, Arterial Blood Oxygen Saturation 95.1, Arterial Blood Base Excess -0.9, Calvin Test Positive Height (Feet): 5 Height (Inches): 8.00 Weight (Pounds): 208 General Appearance: no apparent distress Cardiovascular: normal rate Respiratory/Chest: decreased breath sounds Abdomen: soft Objective no change Mirza Conde MD Aug 02, 2018 12:20
--- NOTE | 2018-08-02 13:31 | Pulmonology Progress Note ---
Assessment/Plan Problems: (1) Encephalopathy (2) Anemia in chronic kidney disease (CKD) (3) ESRD (end stage renal disease) on dialysis (4) HTN (hypertension) (5) Diabetes mellitus Assessment/Plan being dialyzeddoing better less confused sputum MRSA on PO antibiotics abx as per ID sliding scale still on restrains dvt prophylaxis. dc back to previous senior care Subjective ROS Limited/Unobtainable: No Interval Events: more cohorent Allergies: Coded Allergies: No Known Allergies (Verified , 11/24/07) UNABLE TO ASSESS (Unverified , 07/15/18) Objective Last 24 Hour Vital Signs Date Time Temp Pulse Resp B/P (MAP) Pulse Ox O2 Delivery O2 Flow Rate FiO2 08/02/18 13:03 Nasal Cannula 2.0 08/02/18 08:30 Nasal Cannula 2.0 08/02/18 04:00 99.4 87 16 155/66 (95) 95 99.4 08/01/18 21:00 Nasal Cannula 2.0 08/01/18 20:53 88 162/89 08/01/18 20:00 98.0 88 20 162/89 (113) 100 98.0 08/01/18 16:00 97.7 91 21 164/74 (104) 100 97.7 08/01/18 14:53 87 177/68 08/01/18 14:45 87 177/68 (104) Intake and Output 08/01/18 08/02/18 19:00 07:00 Output Total 500 ml 250 ml Balance -500 ml -250 ml Output Urine Total 500 ml 250 ml # Voids 2 General Appearance: WD/WN HEENT: normocephalic, atraumatic Respiratory/Chest: chest wall non-tender, lungs clear Cardiovascular: normal peripheral pulses, regular rhythm Abdomen: soft, non tender, non distended Extremities: no cyanosis, no clubbing Skin: no rash Microbiology Date/Time Source Procedure Growth Status 08/01/18 01:18 External Cath Urine Culture - Preliminary NO GROWTH AFTER 24 HOURS Resulted Laboratory Tests 08/02/18 04:00: Arterial Blood pH 7.334L, Arterial Blood Partial Pressure CO2 48.2H, Arterial Blood Partial Pressure O2 86.1, Arterial Blood HCO3 25.1, Arterial Blood Oxygen Saturation 95.1, Arterial Blood Base Excess -0.9, Calvin Test Positive Current Medications Medications (Trade) Dose Ordered Sig/Praveen Route PRN Reason Start Time Stop Time Status Last Admin Dose Admin Acetaminophen (Tylenol) 650 mg Q4H PRN ORAL fever 07/30/18 06:00 08/27/18 21:59 07/30/18 19:01 Amoxicillin (Amoxil) 500 mg DAILY@2100 ORAL 08/01/18 21:00 08/08/18 20:59 08/01/18 20:54 Aspirin (ASA) 162 mg DAILY NG 07/30/18 09:00 08/23/18 08:59 08/01/18 09:18 Chlorhexidine Gluconate (Leslie-Hex 2%) 1 applic DAILY@2000 TOPIC 07/30/18 20:00 08/25/18 19:59 08/01/18 20:54 Dextrose (Dextrose 50%) 25 ml Q30M PRN IV Hypoglycemia 07/30/18 06:00 08/22/18 09:54 Dextrose (Dextrose 50%) 50 ml Q30M PRN IV hypoglycemia 07/30/18 06:00 08/22/18 09:59 Docusate Sodium (Colace) 100 mg TID ORAL 08/01/18 18:00 08/30/18 17:59 08/01/18 18:13 Epoetin Yao (Procrit (for ESRD on dialysis)) 10,000 units THU-THU-THU SUBQ 07/30/18 21:00 08/15/18 20:59 07/30/18 21:38 Haloperidol Lactate (Haldol) 5 mg Q4H PRN IM Agitation 07/30/18 06:00 08/27/18 21:59 Hydralazine HCl (Apresoline) 25 mg Q4H PRN ORAL bp over 160 syst 08/01/18 13:45 08/31/18 13:44 Insulin Aspart (NovoLOG) EVERY 6 HOURS SUBQ 07/30/18 06:00 08/16/18 20:59 08/01/18 18:14 Lansoprazole (Prevacid) 30 mg DAILY ORAL 07/31/18 09:00 08/30/18 08:59 08/01/18 09:18 Lorazepam (Ativan 2mg/ml 1ml) 1 mg Q4H PRN IM For Anxiety 07/30/18 06:00 08/04/18 21:59 Metoprolol Tartrate (Lopressor) 12.5 mg Q12HR ORAL 08/01/18 21:00 08/31/18 20:59 08/01/18 20:53 Nitroglycerin (Ntg) 1 patch DAILY TDERMAL 07/30/18 09:00 08/20/18 10:29 08/01/18 09:19 Quetiapine Fumarate (SEROquel) 25 mg Q6H PRN ORAL For Anxiety 07/30/18 10:00 08/27/18 21:59 07/31/18 09:39 Quetiapine Fumarate (SEROquel) 100 mg Q8HR ORAL 07/30/18 06:00 08/15/18 13:59 08/02/18 06:14 Sevelamer Carbonate (Renvela) 1,600 mg THREE TIMES A DAY ORAL 07/30/18 09:00 08/15/18 12:59 08/01/18 18:13 Vancomycin HCl (Vanco rx to dose) 1 ea DAILY PRN MISC Per rx protocol 07/30/18 09:00 08/24/18 18:59 Denise Rogers MD Aug 02, 2018 13:31
[2018-08-02 16:00] VITALS: BP 174/85
--- NOTE | 2018-08-02 18:09 | Cardiology Progress Note ---
Assessment/Plan Status: stable Assessment/Plan Assessment: 1) ESRD (end stage renal disease) on dialysis (2) Anemia in chronic kidney disease (CKD) (3) Hypertensive kidney disease (4) Encephalopathy (5) DM (6) Hyperlipemia Plan: Maintain hemodialysis Echocardiogram --> preserved systolic function, mild valvular regurgitation, mild pulmonary hypertension, elevated filling pressures Stress test prior to dc to evaluate chest pain given multiple cardiac risk factors and NSVT ---> placed order Aspirin Statin No indication for urgent cardiac cath Pulmonary toilet Advance diet Transferred to floor -> mobilize/ambulate/physical therapy Transfusion prn Dispo planning Subjective Cardiovascular: Reports: no symptoms Respiratory: Reports: no symptoms Gastrointestinal/Abdominal: Reports: no symptoms Genitourinary: Reports: no symptoms Subjective No acute events, vitals stable, had HD, refusing insulin and sometimes meds. Needs stress test prior to d/c due to hx of NSTEMI and CAD. Objective Last 24 Hour Vital Signs Date Time Temp Pulse Resp B/P (MAP) Pulse Ox O2 Delivery O2 Flow Rate FiO2 08/02/18 16:00 98.0 109 19 174/85 (114) 97 98.0 08/02/18 14:22 Nasal Cannula 2.0 08/02/18 13:03 Nasal Cannula 2.0 08/02/18 08:30 Nasal Cannula 2.0 08/02/18 04:00 99.4 87 16 155/66 (95) 95 99.4 08/01/18 21:00 Nasal Cannula 2.0 08/01/18 20:53 88 162/89 08/01/18 20:00 98.0 88 20 162/89 (113) 100 98.0 General Appearance: no apparent distress, alert EENT: PERRL/EOMI, normal ENT inspection, TMs normal, pharynx normal Neck: non-tender, normal alignment, supple, normal inspection, no JVD Rhythm: NSR Cardiovascular: normal peripheral pulses, normal rate, regular rhythm, regularly irregular Respiratory/Chest: chest wall non-tender, lungs clear, normal breath sounds, no respiratory distress, no accessory muscle use Abdomen: normal bowel sounds, non tender, soft, no organomegaly, no mass Extremities: normal range of motion, non-tender, normal inspection 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, no motor/sensory deficits, disoriented Intake and Output 08/01/18 08/02/18 19:00 07:00 Output Total 500 ml 250 ml Balance -500 ml -250 ml Output Urine Total 500 ml 250 ml # Voids 2 Laboratory Tests Test 08/02/18 04:00 Arterial Blood pH 7.334 (7.350-7.450) Arterial Blood Partial Pressure CO2 48.2 mmHg (35.0-45.0) H Arterial Blood Partial Pressure O2 86.1 mmHg (75.0-100.0) Arterial Blood HCO3 25.1 mmol/L (22.0-26.0) Arterial Blood Oxygen Saturation 95.1 % (95-100) Arterial Blood Base Excess -0.9 (-2-2) Calvin Test Positive Microbiology Date/Time Source Procedure Growth Status 08/01/18 01:18 External Cath Urine Culture - Preliminary NO GROWTH AFTER 24 HOURS Resulted Yimi Luevano MD Aug 02, 2018 18:09
[2018-08-02] MEDS ORDERED: Lexiscan 0.4mg/5ml syringe IV PRN (18:15)
--- NOTE | 2018-08-02 18:26 | Infectious Diseases Prog Note ---
Assessment/Plan Assessment/Plan ASSESSMENT AND PLAN: 1. mrsa pna, aspiration pna, sepsis, fevers, proteus uti/streptococcus uti, respiratory failure - vancomycin and augmentin - day # 13, plan on 14 day treatment course ( longer treatment course since patient was septic and respiratory failure) - monitor labs and chest x-ray - fevers and sepsis improved 2. Respiratory failure, on vent. 3. End-stage renal disease, on hemodialysis. 4. Intensive care unit care. 5. Skin care protocol. 6. Hypertension. 7. Hypertensive kidney disease. 8. Gastroesophageal reflux disease. 9. Diabetes. 10. Hyperlipidemia. 11. Anemia. 12. Dementia. 13. Allergies are negative. 14. Family history is noncontributory. 15. Social history is negative. 16. MAR was noted. 17. Case was discussed with RN. 18. Notes and records were noted. 19. Orders were entered. 20. Continue treatment per primary consultants. Subjective Constitutional: Reports: fatigue; Denies: fever HEENT: Denies: congestion Respiratory: Denies: shortness of breath Cardiovascular: Denies: chest pain Gastrointestinal/Abdominal: Denies: nausea, vomiting, diarrhea Genitourinary: Reports: other - no becerra Neurologic: Denies: headache Psychiatric: Denies: depression Skin: Denies: rash Hematologic: Denies: bleeding Musculoskeletal: Denies: pain Allergies: Coded Allergies: No Known Allergies (Verified , 11/24/07) UNABLE TO ASSESS (Unverified , 07/15/18) Objective Vital Signs Last 24 Hour Vital Signs Date Time Temp Pulse Resp B/P (MAP) Pulse Ox O2 Delivery O2 Flow Rate FiO2 08/02/18 16:00 98.0 109 19 174/85 (114) 97 98.0 08/02/18 14:22 Nasal Cannula 2.0 08/02/18 13:03 Nasal Cannula 2.0 08/02/18 08:30 Nasal Cannula 2.0 08/02/18 04:00 99.4 87 16 155/66 (95) 95 99.4 08/01/18 21:00 Nasal Cannula 2.0 08/01/18 20:53 88 162/89 08/01/18 20:00 98.0 88 20 162/89 (113) 100 98.0 Height (Feet): 5 Height (Inches): 8.00 Weight (Pounds): 208 General Appearance: no acute distress HEENT: normocephalic, atraumatic, anicteric Respiratory/Chest: lungs clear, no accessory muscle use, crackles/rales - few, rhonchi - bilaterally - few Cardiovascular: normal rate, regular rhythm, no gallop/murmur, no JVD Abdomen: normal bowel sounds, soft, non tender, no organomegaly, non distended Genitourinary: other - no becerra Extremities: no cyanosis Skin: no rash 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 Stable tube and line positions. Impression: Unchanged, over 2 days, findings as above. 07/25 - chest x-ray - IMPRESSION: 1. Persistent patchy bibasilar opacities, most prominent in the left lower lung/retrocardiac region, which may represent subsegmental atelectasis versus infiltrate. 2. No significant change in the prominent interstitial markings. This may be related to mild pulmonary vascular congestion versus interstitial pneumonitis. 3. Persistent small left pleural effusion. Chest -x-ray - 07/27 - Findings: Interim removal of endotracheal and nasogastric tubes. Less optimal inspiration on the current exam. Left lateral pleural thickening persists. Ill-defined interstitial and airspace disease in the left mid and lower lung are probably unchanged allowing for differences and degree of inspiration. Median sternotomy sutures, aortic valve prosthesis, right jugular tunneled dialysis catheter remain. Impression: Interim endotracheal and nasogastric tube removal. Otherwise essentially unchanged over one day, findings as described Chest x-ray - 07/28 - Comparison: 07/27/2018 Findings: Right jugular tunneled dialysis catheter remains. Left sided pleural thickening versus fluid remains. Heart remains borderline enlarged. Findings are unchanged Impression: Unchanged, over one day, findings as above. Chest x-ray - 08/01 - IMPRESSION: No significant change. Left lower lung zone opacity, cannot exclude underlying effusion. Stable right internal jugular catheter. Microbiology Date/Time Source Procedure Growth Status 07/20/18 20:00 Blood Blood Culture - Final NO GROWTH AFTER 5 DAYS Complete 07/20/18 18:06 Sputum Induced Gram Stain - Final Complete 07/20/18 18:06 Sputum Culture - Final Staphylococcus Aureus - Mrsa Complete 08/01/18 01:18 External Cath Urine Culture - Preliminary NO GROWTH AFTER 24 HOURS Resulted Microbiology Date/Time Source Procedure Growth Status 08/01/18 01:18 External Cath Urine Culture - Preliminary NO GROWTH AFTER 24 HOURS Resulted Laboratory Tests Test 08/02/18 04:00 Arterial Blood pH 7.334 (7.350-7.450) Arterial Blood Partial Pressure CO2 48.2 mmHg (35.0-45.0) H Arterial Blood Partial Pressure O2 86.1 mmHg (75.0-100.0) Arterial Blood HCO3 25.1 mmol/L (22.0-26.0) Arterial Blood Oxygen Saturation 95.1 % (95-100) Arterial Blood Base Excess -0.9 (-2-2) Calvin Test Positive Current Medications Medications (Trade) Dose Ordered Sig/Praveen Route PRN Reason Start Time Stop Time Status Last Admin Dose Admin Acetaminophen (Tylenol) 650 mg Q4H PRN ORAL fever 07/30/18 06:00 08/27/18 21:59 07/30/18 19:01 Amoxicillin (Amoxil) 500 mg DAILY@2100 ORAL 08/01/18 21:00 08/08/18 20:59 08/01/18 20:54 Aspirin (ASA) 162 mg DAILY NG 07/30/18 09:00 08/23/18 08:59 08/01/18 09:18 Chlorhexidine Gluconate (Leslie-Hex 2%) 1 applic DAILY@2000 TOPIC 07/30/18 20:00 08/25/18 19:59 08/01/18 20:54 Dextrose (Dextrose 50%) 25 ml Q30M PRN IV Hypoglycemia 07/30/18 06:00 08/22/18 09:54 Dextrose (Dextrose 50%) 50 ml Q30M PRN IV hypoglycemia 07/30/18 06:00 08/22/18 09:59 Docusate Sodium (Colace) 100 mg TID ORAL 08/01/18 18:00 08/30/18 17:59 08/01/18 18:13 Epoetin Yao (Procrit (for ESRD on dialysis)) 10,000 units MON-WED-THU SUBQ 07/30/18 21:00 08/15/18 20:59 07/30/18 21:38 Haloperidol Lactate (Haldol) 5 mg Q4H PRN IM Agitation 07/30/18 06:00 08/27/18 21:59 Hydralazine HCl (Apresoline) 25 mg Q4H PRN ORAL bp over 160 syst 08/01/18 13:45 08/31/18 13:44 Insulin Aspart (NovoLOG) EVERY 6 HOURS SUBQ 07/30/18 06:00 08/16/18 20:59 08/01/18 18:14 Lansoprazole (Prevacid) 30 mg DAILY ORAL 07/31/18 09:00 08/30/18 08:59 08/01/18 09:18 Lorazepam (Ativan 2mg/ml 1ml) 1 mg Q4H PRN IM For Anxiety 07/30/18 06:00 08/04/18 21:59 Metoprolol Tartrate (Lopressor) 12.5 mg Q12HR ORAL 08/01/18 21:00 08/31/18 20:59 08/01/18 20:53 Nitroglycerin (Ntg) 1 patch DAILY TDERMAL 07/30/18 09:00 08/20/18 10:29 08/01/18 09:19 Quetiapine Fumarate (SEROquel) 25 mg Q6H PRN ORAL For Anxiety 07/30/18 10:00 08/27/18 21:59 07/31/18 09:39 Quetiapine Fumarate (SEROquel) 100 mg Q8HR ORAL 07/30/18 06:00 08/15/18 13:59 08/02/18 14:50 Regadenoson (Lexiscan) 0.4 mg ONCE PRN IV STRESS TEST 08/02/18 18:15 08/04/18 23:59 Sevelamer Carbonate (Renvela) 1,600 mg THREE TIMES A DAY ORAL 07/30/18 09:00 08/15/18 12:59 08/01/18 18:13 Vancomycin HCl (Vanco rx to dose) 1 ea DAILY PRN MISC Per rx protocol 07/30/18 09:00 08/24/18 18:59 Olinda Poon MD Aug 02, 2018 18:26
[2018-08-02 20:00] VITALS: BP 135/81
[2018-08-02] MEDS: Dyna-Hex 2% Top Sol 2oz TOPIC SCH (22:04)
[2018-08-02] MEDS: Epogen (for ESRD on dialysis) SUBQ SCH (22:05)
[2018-08-02] MEDS ORDERED: cloNIDine 0.2mg Tab ORAL PRN (23:00)
--- NOTE | 2018-08-02 23:55 | General Progress Note ---
Assessment/Plan Problem List: (1) Encephalopathy due to metabolic factor or toxin SNOMED: 276412894 Status: stable, progressing Assessment/Plan seroquel 100mg tid the pt lack capacity to make decisions. haldol and ativan im Subjective Date patient seen: Aug 02, 2018 Neurologic/Psychiatric: Reports: anxiety, depressed, emotional problems Allergies: Coded Allergies: No Known Allergies (Verified , 11/24/07) UNABLE TO ASSESS (Unverified , 07/15/18) Subjective the pt is less agitated Objective Last 24 Hour Vital Signs Date Time Temp Pulse Resp B/P (MAP) Pulse Ox O2 Delivery O2 Flow Rate FiO2 08/02/18 22:05 96 135/81 08/02/18 21:00 Nasal Cannula 2.0 08/02/18 20:00 99.8 109 20 135/81 (99) 97 99.8 96 08/02/18 16:00 98.0 109 19 174/85 (114) 97 98.0 08/02/18 14:22 Nasal Cannula 2.0 08/02/18 13:03 Nasal Cannula 2.0 08/02/18 08:30 Nasal Cannula 2.0 08/02/18 04:00 99.4 87 16 155/66 (95) 95 99.4 Intake and Output 08/01/18 08/02/18 19:00 07:00 Output Total 500 ml 250 ml Balance -500 ml -250 ml Output Urine Total 500 ml 250 ml # Voids 2 Laboratory Tests 08/02/18 04:00: Arterial Blood pH 7.334L, Arterial Blood Partial Pressure CO2 48.2H, Arterial Blood Partial Pressure O2 86.1, Arterial Blood HCO3 25.1, Arterial Blood Oxygen Saturation 95.1, Arterial Blood Base Excess -0.9, Calvin Test Positive Height (Feet): 5 Height (Inches): 8.00 Weight (Pounds): 208 General Appearance: no apparent distress, alert, confused Tara Ward MD Aug 02, 2018 23:55
--- NOTE | 2018-08-02 23:55 | Psych Consult Progress Note ---
Psych Consult Progress Note Consult 08/01/18 seroquel 100mg tid the pt lack capacity to make decisions. haldol and ativan im Vital Signs Last 24 Hour Vital Signs Date Time Temp Pulse Resp B/P (MAP) Pulse Ox O2 Delivery O2 Flow Rate FiO2 08/02/18 22:05 96 135/81 08/02/18 21:00 Nasal Cannula 2.0 08/02/18 20:00 99.8 109 20 135/81 (99) 97 99.8 96 08/02/18 16:00 98.0 109 19 174/85 (114) 97 98.0 08/02/18 14:22 Nasal Cannula 2.0 08/02/18 13:03 Nasal Cannula 2.0 08/02/18 08:30 Nasal Cannula 2.0 08/02/18 04:00 99.4 87 16 155/66 (95) 95 99.4 Labs Laboratory Tests Test 08/02/18 04:00 Arterial Blood pH 7.334 (7.350-7.450) Arterial Blood Partial Pressure CO2 48.2 mmHg (35.0-45.0) H Arterial Blood Partial Pressure O2 86.1 mmHg (75.0-100.0) Arterial Blood HCO3 25.1 mmol/L (22.0-26.0) Arterial Blood Oxygen Saturation 95.1 % (95-100) Arterial Blood Base Excess -0.9 (-2-2) Calvin Test Positive Medications Current Medications Medications (Trade) Dose Ordered Sig/Praveen Route PRN Reason Start Time Stop Time Status Last Admin Dose Admin Acetaminophen (Tylenol) 650 mg Q4H PRN ORAL fever 07/30/18 06:00 08/27/18 21:59 07/30/18 19:01 Amoxicillin (Amoxil) 500 mg DAILY@2100 ORAL 08/01/18 21:00 08/08/18 20:59 08/02/18 22:05 Aspirin (ASA) 162 mg DAILY NG 07/30/18 09:00 08/23/18 08:59 08/01/18 09:18 Chlorhexidine Gluconate (Leslie-Hex 2%) 1 applic DAILY@2000 TOPIC 07/30/18 20:00 08/25/18 19:59 08/02/18 22:04 Dextrose (Dextrose 50%) 25 ml Q30M PRN IV Hypoglycemia 07/30/18 06:00 08/22/18 09:54 Dextrose (Dextrose 50%) 50 ml Q30M PRN IV hypoglycemia 07/30/18 06:00 08/22/18 09:59 Docusate Sodium (Colace) 100 mg TID ORAL 08/01/18 18:00 08/30/18 17:59 08/01/18 18:13 Epoetin Yao (Procrit (for ESRD on dialysis)) 10,000 units THU-THU-THU SUBQ 07/30/18 21:00 08/15/18 20:59 08/02/18 22:05 Haloperidol Lactate (Haldol) 5 mg Q4H PRN IM Agitation 07/30/18 06:00 08/27/18 21:59 Hydralazine HCl (Apresoline) 25 mg Q4H PRN ORAL bp over 160 syst 08/01/18 13:45 08/31/18 13:44 Insulin Aspart (NovoLOG) EVERY 6 HOURS SUBQ 07/30/18 06:00 08/16/18 20:59 08/01/18 18:14 Lansoprazole (Prevacid) 30 mg DAILY ORAL 07/31/18 09:00 08/30/18 08:59 08/01/18 09:18 Lorazepam (Ativan 2mg/ml 1ml) 1 mg Q4H PRN IM For Anxiety 07/30/18 06:00 08/04/18 21:59 Metoprolol Tartrate (Lopressor) 12.5 mg Q12HR ORAL 08/01/18 21:00 08/31/18 20:59 08/02/18 22:05 Nitroglycerin (Ntg) 1 patch DAILY TDERMAL 07/30/18 09:00 08/20/18 10:29 08/01/18 09:19 Quetiapine Fumarate (SEROquel) 25 mg Q6H PRN ORAL For Anxiety 07/30/18 10:00 08/27/18 21:59 07/31/18 09:39 Quetiapine Fumarate (SEROquel) 100 mg Q8HR ORAL 07/30/18 06:00 08/15/18 13:59 08/02/18 22:05 Regadenoson (Lexiscan) 0.4 mg ONCE PRN IV STRESS TEST 08/02/18 18:15 08/04/18 23:59 Sevelamer Carbonate (Renvela) 1,600 mg THREE TIMES A DAY ORAL 07/30/18 09:00 08/15/18 12:59 08/01/18 18:13 Vancomycin HCl (Vanco rx to dose) 1 ea DAILY PRN MISC Per rx protocol 07/30/18 09:00 08/24/18 18:59 Problems: (1) Encephalopathy due to metabolic factor or toxin Status: Acute Tara Ward MD Aug 02, 2018 23:55
[2018-08-03] VITALS: BP 150/52
[2018-08-03 04:00] VITALS: BP 136/56
[2018-08-03] MEDS: NovoLOG Insulin Flexpen SUBQ SCH ×3 (06:00→18:00)
[2018-08-03 06:35] LABS: BASOPHILS % (AUTO) 0.9 % (0.0-2.0); EOSINOPHILS % (AUTO) 1.8 % (0.0-3.0); HEMATOCRIT 25.3 % (42.0-52.0); HEMOGLOBIN 8.4 G/DL (14.2-18.0); LYMPHOCYTES % (AUTO) 9.8 % (20.0-45.0); MEAN CORPUSCULAR VOLUME 94 FL (80-99); MONOCYTES % (AUTO) 8.5 % (1.0-10.0); PLATELET COUNT 158 K/UL (150-450); RED BLOOD COUNT 2.69 M/UL (4.70-6.10); RED CELL DISTRIBUTION WIDTH 15.1 % (11.6-14.8); WHITE BLOOD COUNT 6.6 K/UL (4.8-10.8)
[2018-08-03 07:15] LABS: ALANINE AMINOTRANSFERASE 12 U/L (12-78); ALBUMIN 2.4 G/DL (3.4-5.0); ALBUMIN/GLOBULIN RATIO 0.6 (1.0-2.7); ALKALINE PHOSPHATASE 105 U/L (46-116); ASPARTATE AMINO TRANSFERASE 10 U/L (15-37); BILIRUBIN,TOTAL 0.3 MG/DL (0.2-1.0); BLOOD UREA NITROGEN 46 mg/dL (7-18); CALCIUM 8.8 MG/DL (8.5-10.1); CHLORIDE 102 MMOL/L (98-107); CREATININE 6.9 MG/DL (0.55-1.30); PHOSPHORUS 4.5 MG/DL (2.5-4.9); POTASSIUM 4.3 MMOL/L (3.5-5.1); SODIUM 138 MMOL/L (136-145)
[2018-08-03 08:00] VITALS: BP 118/54
[2018-08-03 08:00] LABS: CARBON DIOXIDE 27 MMOL/L (21-32)
--- NOTE | 2018-08-03 08:23 | General Progress Note ---
Assessment/Plan Assessment/Plan # Pancytopenia potentially reactive process versus meds related or related to bone marrow process, hepatitis and hiv both reviewed and are negative, has been acute onset since admission --> stable to improving. DOES HAVE SPLENOMEGALY, now has improved --> us of the abdomen shows splenomegaly++ and can in future repeat as needed --> at this time, does not need a bone marrow biopsy --> on IV iron and epogen sq --> neupogen sq prn if ANC <1000 --> wbc count is better, does not require supportive growth factors --> LABS have been reviewed # Anemia of chronic disease has been evaluated and reviewed, does have evidence of iron deficiency, has been given iron once d/c --> po iron once discharged as does have iron deficiency component as ferritin is <500 --> ok for epogen --> on iv iron --> appreciate renal recs --> on HD prn # ESRD as per nephro --> on hd prn, has received while in hospital # Cardiomegaly with PVC --> seen by cards # Health care associated pneumonia --> Pulm consulted, appreciate recs --> Pt extubated since 07/28 --> abx as per ID # Encephalopathy -- can communicate --> has improved slowly --> now able to speak Greatly appreciate consultation! Subjective Constitutional: Denies: no symptoms, chills, diaphoresis, fever, malaise, weakness, other HEENT: Denies: no symptoms, eye pain, blurred vision, tearing, double vision, ear pain, ear discharge, nose pain, nose congestion, throat pain, throat swelling, mouth pain, mouth swelling, other Cardiovascular: Denies: no symptoms, chest pain, edema, irregular heart rate, lightheadedness, palpitations, syncope, other Respiratory: Denies: no symptoms, cough, orthopnea, shortness of breath, SOB with excertion, SOB at rest, sputum, stridor, wheezing, other Gastrointestinal/Abdominal: Denies: no symptoms, abdomen distended, abdominal pain, black stools, tarry stools, blood in stool, constipated, diarrhea, difficulty swallowing, nausea, poor appetite, poor fluid intake, rectal bleeding , vomiting, other Genitourinary: Denies: no symptoms, burning, discharge, frequency, flank pain, hematuria, incontinence, pain, urgency, other Neurologic/Psychiatric: Denies: no symptoms, anxiety, depressed, emotional problems, headache, numbness, paresthesia, pre-existing deficit, seizure, tingling, tremors, weakness, other Endocrine: Denies: no symptoms, excessive sweating, flushing, intolerance to cold, intolerance to heat, increased hunger, increased thirst, increased urine, unexplained weight gain, unexplained weight loss, other Allergies: Coded Allergies: No Known Allergies (Verified , 11/24/07) UNABLE TO ASSESS (Unverified , 07/15/18) Subjective Pt awake and alert. Sleeping. No acute events. Objective Last 24 Hour Vital Signs Date Time Temp Pulse Resp B/P (MAP) Pulse Ox O2 Delivery O2 Flow Rate FiO2 08/03/18 04:00 97.7 82 20 136/56 (82) 100 97.7 08/03/18 00:00 98.0 70 20 150/52 (84) 98 98.0 70 08/02/18 22:05 96 135/81 08/02/18 21:00 Nasal Cannula 2.0 08/02/18 20:00 99.8 109 20 135/81 (99) 97 99.8 96 08/02/18 16:00 98.0 109 19 174/85 (114) 97 98.0 08/02/18 14:22 Nasal Cannula 2.0 08/02/18 13:03 Nasal Cannula 2.0 08/02/18 08:30 Nasal Cannula 2.0 Intake and Output 08/02/18 08/03/18 19:00 07:00 Intake Total 120 ml Output Total 3000 ml Balance -2880 ml Intake Oral 120 ml Hemodialysis UF 3000 ml Laboratory Tests 08/03/18 06:10: White Blood Count 6.6, Red Blood Count 2.69L, Hemoglobin 8.4L, Hematocrit 25.3L , Mean Corpuscular Volume 94, Mean Corpuscular Hemoglobin 31.3H, Mean Corpuscular Hemoglobin Concent 33.3, Red Cell Distribution Width 15.1H, Platelet Count 158, Mean Platelet Volume 6.2L, Neutrophils (%) (Auto) 79.0H, Lymphocytes (%) (Auto) 9.8L, Monocytes (%) (Auto) 8.5, Eosinophils (%) (Auto) 1.8, Basophils (%) (Auto) 0.9, Sodium Level 138, Potassium Level 4.3, Chloride Level 102, Carbon Dioxide Level 27, Blood Urea Nitrogen 46H, Creatinine 6.9H, Estimat Glomerular Filtration Rate 9.7, Glucose Level 99, Calcium Level 8.8, Phosphorus Level 4.5, Magnesium Level 2.2, Total Bilirubin 0.3, Aspartate Amino Transf (AST/SGOT) 10L, Alanine Aminotransferase (ALT/SGPT) 12, Alkaline Phosphatase 105, Total Protein 6.7, Albumin 2.4L, Globulin 4.3, Albumin/ Globulin Ratio 0.6L Height (Feet): 5 Height (Inches): 8.00 Weight (Pounds): 191 General Appearance: no apparent distress EENT: normal ENT inspection Neck: normal alignment Cardiovascular: normal rate Respiratory/Chest: chest wall non-tender Abdomen: non tender Extremities: non-tender Edema: 1+ Leg (L), 1+ Leg (R) Edema: mild edema Neurologic: alert Skin: warm/dry Virgil Ward MD Aug 03, 2018 08:23
[2018-08-03] MEDS: Renvela 800mg Pkt ORAL SCH ×3 (09:00→18:32)
[2018-08-03] MEDS: Metoprolol Tartrate 12.5mg TAB ORAL SCH ×2 (09:00→21:19)
[2018-08-03] MEDS: Aspirin Baby 81mg NG SCH (09:00)
[2018-08-03] MEDS: Docusate 100mg/10ml Liq ORAL SCH ×3 (09:00→18:32)
[2018-08-03] MEDS: Nitroglycerin Patch 0.4mg TDERMAL SCH (09:55)
--- NOTE | 2018-08-03 11:17 | General Progress Note ---
Assessment/Plan Problem List: (1) ESRD (end stage renal disease) on dialysis ICD Codes: N18.6 - End stage renal disease; Z99.2 - Dependence on renal dialysis SNOMED: 014174308 (2) CHF (congestive heart failure) ICD Codes: I50.9 - Heart failure, unspecified SNOMED: 73465718 (3) History of hypertension ICD Codes: Z86.79 - History of hypertension SNOMED: 692212312 (4) Pleural effusion ICD Codes: J90 - Pleural effusion, not elsewhere classified SNOMED: 49537163 (5) Diabetes mellitus ICD Codes: E11.9 - Diabetes mellitus SNOMED: 64079758 (6) Encephalopathy ICD Codes: G93.40 - Encephalopathy, unspecified SNOMED: 45911756 Assessment/Plan S/P NSTEMI type 2, continue ASA, with H/O Heart Disease, card following - Patient had elevated troponins of level 1-2 earlier in hospital course - cards has ordered stress test, discharge pending results of stress Acute metabolic encephalopathy superimposed on dementia and psychosis, improved - patient has been off restraints since 08/01 and doing well, on seroquel ESRD on HD - patient completed HD yesterday and is on M,W,F schedule, doing well s/p Severe sepsis due to suspected gram negative pneumonia -d/c abx today per ID reqs, completed 14 day course - patient shows no signs of sepsis s/p Acute hypercapnic respiratory failure - resolving, Pulm following Acute on chronic diastolic heart failure,resolved. fluid management with HD. Cards following Hypertensive heart and renal disease, continue metoprolol Pancytopenia likely due to BM suppression, Hematology following Dispo planning - SNF. No family is available CM and SW have been following case Subjective Allergies: Coded Allergies: No Known Allergies (Verified , 11/24/07) UNABLE TO ASSESS (Unverified , 07/15/18) All Systems: reviewed and negative except above Subjective patient has been doing well off restraints and resting comfortably this AM Objective Last 24 Hour Vital Signs Date Time Temp Pulse Resp B/P (MAP) Pulse Ox O2 Delivery O2 Flow Rate FiO2 08/03/18 09:55 118/54 08/03/18 09:00 Nasal Cannula 2.0 08/03/18 09:00 81 118/54 08/03/18 08:00 98.1 81 20 118/54 (75) 96 98.1 10/9/18 07:10 Nasal Cannula 2.0 28 08/03/18 07:10 98 Nasal Cannula 2.0 28 08/03/18 04:00 97.7 82 20 136/56 (82) 100 97.7 08/03/18 00:00 98.0 70 20 150/52 (84) 98 98.0 70 08/02/18 22:05 96 135/81 08/02/18 21:00 Nasal Cannula 2.0 08/02/18 20:00 99.8 109 20 135/81 (99) 97 99.8 96 08/02/18 16:00 98.0 109 19 174/85 (114) 97 98.0 08/02/18 14:22 Nasal Cannula 2.0 08/02/18 13:03 Nasal Cannula 2.0 Intake and Output 08/02/18 08/03/18 19:00 07:00 Intake Total 120 ml Output Total 3000 ml Balance -2880 ml Intake Oral 120 ml Hemodialysis UF 3000 ml Laboratory Tests 08/03/18 06:10: White Blood Count 6.6, Red Blood Count 2.69L, Hemoglobin 8.4L, Hematocrit 25.3L , Mean Corpuscular Volume 94, Mean Corpuscular Hemoglobin 31.3H, Mean Corpuscular Hemoglobin Concent 33.3, Red Cell Distribution Width 15.1H, Platelet Count 158, Mean Platelet Volume 6.2L, Neutrophils (%) (Auto) 79.0H, Lymphocytes (%) (Auto) 9.8L, Monocytes (%) (Auto) 8.5, Eosinophils (%) (Auto) 1.8, Basophils (%) (Auto) 0.9, Sodium Level 138, Potassium Level 4.3, Chloride Level 102, Carbon Dioxide Level 27, Blood Urea Nitrogen 46H, Creatinine 6.9H, Estimat Glomerular Filtration Rate 9.7, Glucose Level 99, Calcium Level 8.8, Phosphorus Level 4.5, Magnesium Level 2.2, Total Bilirubin 0.3, Aspartate Amino Transf (AST/SGOT) 10L, Alanine Aminotransferase (ALT/SGPT) 12, Alkaline Phosphatase 105, Total Protein 6.7, Albumin 2.4L, Globulin 4.3, Albumin/ Globulin Ratio 0.6L Height (Feet): 5 Height (Inches): 8.00 Weight (Pounds): 191 General Appearance: WD/WN, no apparent distress, lethargic - from medications given overnight EENT: PERRL/EOMI, normal ENT inspection, TMs normal Neck: non-tender, supple, normal inspection Cardiovascular: normal peripheral pulses, normal rate, regular rhythm Respiratory/Chest: chest wall non-tender, lungs clear, normal breath sounds, no respiratory distress, no accessory muscle use, other - post cabg scar midline , well healed, right permacath c/d/i Abdomen: normal bowel sounds, non tender, soft, no organomegaly Extremities: normal range of motion, non-tender Edema: no edema noted Arm (L), no edema noted Arm (R), no edema noted Leg (L), no edema noted Leg (R), no edema noted Pedal (L), no edema noted Pedal (R), no edema noted Generalized Skin: warm/dry Objective objective is limited 2/2 patient is refusing physical exam. Kasey Koch DO Aug 03, 2018 11:17
[2018-08-03 12:00] VITALS: BP 142/71
--- NOTE | 2018-08-03 13:13 | Nephrology Progress Note ---
Assessment/Plan Problem List: (1) Acute respiratory failure Assessment: on presentation- worsened (2) ESRD (end stage renal disease) on dialysis (3) Hyperkalemia (4) CHF (congestive heart failure) (5) Anemia in chronic kidney disease (CKD) Assessment HTN OOC- ESRD has permacath hyperkalemia Shortness of breath, CHF NOW ACUTE RESPIRATORY FAILURE , ON VENT Encephalopathy condition: 1) ESRD (end stage renal disease) on dialysis (2) Anemia in chronic kidney disease (CKD) (3) Hypertensive kidney disease (4) Encephalopathy (5) DM (6) Hyperlipemia Plan post extubation care Dialysis next 08/04 resume Lopressor PRN Hydralazine in med surg now transfused optimize cardiac status 2 D echo noted adjust BP meds adjust BS meds phos binders asa nitrate Dc planning per orders Subjective ROS Limited/Unobtainable: No Constitutional: Reports: weakness Objective Objective Last 24 Hour Vital Signs Date Time Temp Pulse Resp B/P (MAP) Pulse Ox O2 Delivery O2 Flow Rate FiO2 08/03/18 12:00 96.5 95 20 142/71 (94) 98 96.5 08/03/18 09:55 118/54 08/03/18 09:00 Nasal Cannula 2.0 08/03/18 09:00 81 118/54 08/03/18 08:00 98.1 81 20 118/54 (75) 96 98.1 08/03/18 07:10 Nasal Cannula 2.0 28 08/03/18 07:10 98 Nasal Cannula 2.0 28 08/03/18 04:00 97.7 82 20 136/56 (82) 100 97.7 08/03/18 00:00 98.0 70 20 150/52 (84) 98 98.0 70 08/02/18 22:05 96 135/81 08/02/18 21:00 Nasal Cannula 2.0 08/02/18 20:00 99.8 109 20 135/81 (99) 97 99.8 96 08/02/18 16:00 98.0 109 19 174/85 (114) 97 98.0 08/02/18 14:22 Nasal Cannula 2.0 Intake and Output 08/02/18 08/03/18 19:00 07:00 Intake Total 120 ml Output Total 3000 ml Balance -2880 ml Intake Oral 120 ml Hemodialysis UF 3000 ml Laboratory Tests 08/03/18 06:10: White Blood Count 6.6, Red Blood Count 2.69L, Hemoglobin 8.4L, Hematocrit 25.3L , Mean Corpuscular Volume 94, Mean Corpuscular Hemoglobin 31.3H, Mean Corpuscular Hemoglobin Concent 33.3, Red Cell Distribution Width 15.1H, Platelet Count 158, Mean Platelet Volume 6.2L, Neutrophils (%) (Auto) 79.0H, Lymphocytes (%) (Auto) 9.8L, Monocytes (%) (Auto) 8.5, Eosinophils (%) (Auto) 1.8, Basophils (%) (Auto) 0.9, Sodium Level 138, Potassium Level 4.3, Chloride Level 102, Carbon Dioxide Level 27, Blood Urea Nitrogen 46H, Creatinine 6.9H, Estimat Glomerular Filtration Rate 9.7, Glucose Level 99, Calcium Level 8.8, Phosphorus Level 4.5, Magnesium Level 2.2, Total Bilirubin 0.3, Aspartate Amino Transf (AST/SGOT) 10L, Alanine Aminotransferase (ALT/SGPT) 12, Alkaline Phosphatase 105, Total Protein 6.7, Albumin 2.4L, Globulin 4.3, Albumin/ Globulin Ratio 0.6L Height (Feet): 5 Height (Inches): 8.00 Weight (Pounds): 191 General Appearance: no apparent distress Objective no change Mirza Conde MD Aug 03, 2018 13:13
--- NOTE | 2018-08-03 13:26 | Cardiology Progress Note ---
Assessment/Plan Status: stable Assessment/Plan Assessment: 1) ESRD (end stage renal disease) on dialysis (2) Anemia in chronic kidney disease (CKD) (3) Hypertensive kidney disease (4) Encephalopathy (5) DM (6) Hyperlipemia Plan: Maintain hemodialysis Echocardiogram --> preserved systolic function, mild valvular regurgitation, mild pulmonary hypertension, elevated filling pressures Stress test prior to dc to evaluate chest pain given multiple cardiac risk factors and NSVT ---> placed order Aspirin Statin No indication for urgent cardiac cath Pulmonary toilet Advance diet Transferred to floor -> mobilize/ambulate/physical therapy Transfusion prn Dispo planning Subjective Cardiovascular: Reports: no symptoms Respiratory: Reports: no symptoms Gastrointestinal/Abdominal: Reports: no symptoms Genitourinary: Reports: no symptoms Subjective No acute events, vitals stable, awaiting stress test prior to d/c Objective Last 24 Hour Vital Signs Date Time Temp Pulse Resp B/P (MAP) Pulse Ox O2 Delivery O2 Flow Rate FiO2 08/03/18 13:19 Nasal Cannula 2.0 08/03/18 12:00 96.5 95 20 142/71 (94) 98 96.5 08/03/18 09:55 118/54 08/03/18 09:00 Nasal Cannula 2.0 08/03/18 09:00 81 118/54 08/03/18 08:00 98.1 81 20 118/54 (75) 96 98.1 08/03/18 07:10 Nasal Cannula 2.0 28 08/03/18 07:10 98 Nasal Cannula 2.0 28 08/03/18 04:00 97.7 82 20 136/56 (82) 100 97.7 08/03/18 00:00 98.0 70 20 150/52 (84) 98 98.0 70 08/02/18 22:05 96 135/81 08/02/18 21:00 Nasal Cannula 2.0 08/02/18 20:00 99.8 109 20 135/81 (99) 97 99.8 96 08/02/18 16:00 98.0 109 19 174/85 (114) 97 98.0 08/02/18 14:22 Nasal Cannula 2.0 General Appearance: no apparent distress, alert EENT: PERRL/EOMI, normal ENT inspection, TMs normal, pharynx normal Neck: non-tender, normal alignment, supple, normal inspection, no JVD Rhythm: SB Cardiovascular: normal peripheral pulses, normal rate, regular rhythm Respiratory/Chest: chest wall non-tender, lungs clear, normal breath sounds, no respiratory distress Abdomen: normal bowel sounds, non tender, soft Extremities: normal range of motion, non-tender, normal inspection, no calf tenderness 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, no motor/sensory deficits, alert, oriented x 3 Intake and Output 08/02/18 08/03/18 19:00 07:00 Intake Total 120 ml Output Total 3000 ml Balance -2880 ml Intake Oral 120 ml Hemodialysis UF 3000 ml Laboratory Tests Test 08/03/18 06:10 White Blood Count 6.6 K/UL (4.8-10.8) Red Blood Count 2.69 M/UL (4.70-6.10) L Hemoglobin 8.4 G/DL (14.2-18.0) L Hematocrit 25.3 % (42.0-52.0) L Mean Corpuscular Volume 94 FL (80-99) Mean Corpuscular Hemoglobin 31.3 PG (27.0-31.0) H Mean Corpuscular Hemoglobin Concent 33.3 G/DL (32.0-36.0) Red Cell Distribution Width 15.1 % (11.6-14.8) H Platelet Count 158 K/UL (150-450) Mean Platelet Volume 6.2 FL (6.5-10.1) L Neutrophils (%) (Auto) 79.0 % (45.0-75.0) H Lymphocytes (%) (Auto) 9.8 % (20.0-45.0) L Monocytes (%) (Auto) 8.5 % (1.0-10.0) Eosinophils (%) (Auto) 1.8 % (0.0-3.0) Basophils (%) (Auto) 0.9 % (0.0-2.0) Sodium Level 138 MMOL/L (136-145) Potassium Level 4.3 MMOL/L (3.5-5.1) Chloride Level 102 MMOL/L (98-107) Carbon Dioxide Level 27 MMOL/L (21-32) Blood Urea Nitrogen 46 mg/dL (7-18) H Creatinine 6.9 MG/DL (0.55-1.30) H Estimat Glomerular Filtration Rate 9.7 mL/min (>60) Glucose Level 99 MG/DL (74-106) Calcium Level 8.8 MG/DL (8.5-10.1) Phosphorus Level 4.5 MG/DL (2.5-4.9) Magnesium Level 2.2 MG/DL (1.8-2.4) Total Bilirubin 0.3 MG/DL (0.2-1.0) Aspartate Amino Transf (AST/SGOT) 10 U/L (15-37) L Alanine Aminotransferase (ALT/SGPT) 12 U/L (12-78) Alkaline Phosphatase 105 U/L (46-116) Total Protein 6.7 G/DL (6.4-8.2) Albumin 2.4 G/DL (3.4-5.0) L Globulin 4.3 g/dL Albumin/Globulin Ratio 0.6 (1.0-2.7) L Microbiology Date/Time Source Procedure Growth Status 08/01/18 01:18 External Cath Urine Culture - Final NO GROWTH AFTER 48 HOURS Complete Yimi Luevano MD Aug 03, 2018 13:26
--- NOTE | 2018-08-03 13:40 | Pulmonology Progress Note ---
Assessment/Plan Problems: (1) Encephalopathy (2) Anemia in chronic kidney disease (CKD) (3) ESRD (end stage renal disease) on dialysis (4) HTN (hypertension) (5) Diabetes mellitus (6) Acute hypercapnic respiratory failure Assessment & Plan: resolved Assessment/Plan doing better less confused sputum MRSA on PO antibiotics abx as per ID sliding scale still on restrains dvt prophylaxis. stress test ordered Subjective Interval Events: comfortable, confused Allergies: Coded Allergies: No Known Allergies (Verified , 11/24/07) UNABLE TO ASSESS (Unverified , 07/15/18) Objective Last 24 Hour Vital Signs Date Time Temp Pulse Resp B/P (MAP) Pulse Ox O2 Delivery O2 Flow Rate FiO2 08/03/18 13:19 Nasal Cannula 2.0 08/03/18 12:00 96.5 95 20 142/71 (94) 98 96.5 08/03/18 09:55 118/54 08/03/18 09:00 Nasal Cannula 2.0 08/03/18 09:00 81 118/54 08/03/18 08:00 98.1 81 20 118/54 (75) 96 98.1 08/03/18 07:10 Nasal Cannula 2.0 28 08/03/18 07:10 98 Nasal Cannula 2.0 28 08/03/18 04:00 97.7 82 20 136/56 (82) 100 97.7 08/03/18 00:00 98.0 70 20 150/52 (84) 98 98.0 70 08/02/18 22:05 96 135/81 08/02/18 21:00 Nasal Cannula 2.0 08/02/18 20:00 99.8 109 20 135/81 (99) 97 99.8 96 08/02/18 16:00 98.0 109 19 174/85 (114) 97 98.0 08/02/18 14:22 Nasal Cannula 2.0 Intake and Output 08/02/18 08/03/18 19:00 07:00 Intake Total 120 ml Output Total 3000 ml Balance -2880 ml Intake Oral 120 ml Hemodialysis UF 3000 ml General Appearance: WD/WN HEENT: normocephalic, atraumatic Respiratory/Chest: chest wall non-tender, lungs clear Cardiovascular: normal peripheral pulses, normal rate Abdomen: normal bowel sounds, no scars Skin: no rash Microbiology Date/Time Source Procedure Growth Status 08/01/18 01:18 External Cath Urine Culture - Final NO GROWTH AFTER 48 HOURS Complete Laboratory Tests 08/03/18 06:10: White Blood Count 6.6, Red Blood Count 2.69L, Hemoglobin 8.4L, Hematocrit 25.3L , Mean Corpuscular Volume 94, Mean Corpuscular Hemoglobin 31.3H, Mean Corpuscular Hemoglobin Concent 33.3, Red Cell Distribution Width 15.1H, Platelet Count 158, Mean Platelet Volume 6.2L, Neutrophils (%) (Auto) 79.0H, Lymphocytes (%) (Auto) 9.8L, Monocytes (%) (Auto) 8.5, Eosinophils (%) (Auto) 1.8, Basophils (%) (Auto) 0.9, Sodium Level 138, Potassium Level 4.3, Chloride Level 102, Carbon Dioxide Level 27, Blood Urea Nitrogen 46H, Creatinine 6.9H, Estimat Glomerular Filtration Rate 9.7, Glucose Level 99, Calcium Level 8.8, Phosphorus Level 4.5, Magnesium Level 2.2, Total Bilirubin 0.3, Aspartate Amino Transf (AST/SGOT) 10L, Alanine Aminotransferase (ALT/SGPT) 12, Alkaline Phosphatase 105, Total Protein 6.7, Albumin 2.4L, Globulin 4.3, Albumin/ Globulin Ratio 0.6L Current Medications Medications (Trade) Dose Ordered Sig/Praveen Route PRN Reason Start Time Stop Time Status Last Admin Dose Admin Acetaminophen (Tylenol) 650 mg Q4H PRN ORAL fever 07/30/18 06:00 08/27/18 21:59 07/30/18 19:01 Aspirin (ASA) 162 mg DAILY NG 07/30/18 09:00 08/23/18 08:59 08/01/18 09:18 Chlorhexidine Gluconate (Leslie-Hex 2%) 1 applic DAILY@1999 TOPIC 07/30/18 20:00 08/25/18 19:59 08/02/18 22:04 Dextrose (Dextrose 50%) 25 ml Q30M PRN IV Hypoglycemia 07/30/18 06:00 08/22/18 09:54 Dextrose (Dextrose 50%) 50 ml Q30M PRN IV hypoglycemia 07/30/18 06:00 08/22/18 09:59 Docusate Sodium (Colace) 100 mg TID ORAL 08/01/18 18:00 08/30/18 17:59 08/03/18 12:41 Epoetin Yao (Procrit (for ESRD on dialysis)) 10,000 units THU-THU-THU SUBQ 07/30/18 21:00 08/15/18 20:59 08/02/18 22:05 Haloperidol Lactate (Haldol) 5 mg Q4H PRN IM Agitation 07/30/18 06:00 08/27/18 21:59 08/03/18 00:16 Hydralazine HCl (Apresoline) 25 mg Q4H PRN ORAL bp over 160 syst 08/01/18 13:45 08/31/18 13:44 Insulin Aspart (NovoLOG) EVERY 6 HOURS SUBQ 07/30/18 06:00 08/16/18 20:59 08/01/18 18:14 Lansoprazole (Prevacid) 30 mg DAILY ORAL 07/31/18 09:00 08/30/18 08:59 08/01/18 09:18 Lorazepam (Ativan 2mg/ml 1ml) 1 mg Q4H PRN IM For Anxiety 07/30/18 06:00 08/04/18 21:59 08/03/18 02:02 Metoprolol Tartrate (Lopressor) 12.5 mg Q12HR ORAL 08/01/18 21:00 08/31/18 20:59 08/02/18 22:05 Nitroglycerin (Ntg) 1 patch DAILY TDERMAL 07/30/18 09:00 08/20/18 10:29 08/03/18 09:55 Quetiapine Fumarate (SEROquel) 25 mg Q6H PRN ORAL For Anxiety 07/30/18 10:00 08/27/18 21:59 07/31/18 09:39 Quetiapine Fumarate (SEROquel) 100 mg Q8HR ORAL 07/30/18 06:00 08/15/18 13:59 08/03/18 12:46 Regadenoson (Lexiscan) 0.4 mg ONCE PRN IV STRESS TEST 08/02/18 18:15 08/04/18 23:59 Sevelamer Carbonate (Renvela) 1,600 mg THREE TIMES A DAY ORAL 07/30/18 09:00 08/15/18 12:59 08/03/18 12:41 Denise Rogers MD Aug 03, 2018 13:40
[2018-08-03 16:00] VITALS: BP 127/81
--- NOTE | 2018-08-03 16:35 | Diagnostic Imaging Report ---
Indication: chest pain Technique: The study was conducted under the supervision of a organ builder. lexiscan (regadenoson) infusion over 10 seconds followed by intravenous administration of 29.5 mCi of technetium 99m Myoview was performed. Three plane SPECT imaging of the heart was then performed. A resting study was performed as part of the one-day protocol with 10.5 mCi of technetium 99m myoview injected intravenously at that time. Three plane SPECT imaging of the heart was obtained. Comparison: None Clinical data: 1. Clinical response: Non ischemic 2. Electrocardiographic response: Nondiagnostic Findings: The myocardial perfusion scan demonstrates apparent hypoperfusion to the inferior wall. Myocardial infarct is not excluded although the finding may be due to diaphragmatic attenuation. Left ventricular ejection fraction is estimated at 60%. No wall motion abnormalities are seen. IMPRESSION: Diaphragmatic attenuation of the inferior wall versus a myocardial infarct. No definite evidence of myocardial ischemia. LVEF 60%
--- NOTE | 2018-08-03 19:39 | General Progress Note ---
Assessment/Plan Problem List: (1) Encephalopathy due to metabolic factor or toxin SNOMED: 843286458 Status: stable, progressing Assessment/Plan seroquel 100mg tid the pt lack capacity to make decisions. haldol and ativan im Subjective Date patient seen: Aug 03, 2018 Neurologic/Psychiatric: Reports: anxiety, depressed, emotional problems Allergies: Coded Allergies: No Known Allergies (Verified , 11/24/07) UNABLE TO ASSESS (Unverified , 07/15/18) Subjective the pt is less agitated waxes and wanes Objective Last 24 Hour Vital Signs Date Time Temp Pulse Resp B/P (MAP) Pulse Ox O2 Delivery O2 Flow Rate FiO2 08/03/18 16:00 97.8 78 18 127/81 (96) 96 97.8 08/03/18 13:19 Nasal Cannula 2.0 08/03/18 12:00 96.5 95 20 142/71 (94) 98 96.5 08/03/18 09:55 118/54 08/03/18 09:00 Nasal Cannula 2.0 08/03/18 09:00 81 118/54 08/03/18 08:00 98.1 81 20 118/54 (75) 96 98.1 08/03/18 07:10 Nasal Cannula 2.0 28 08/03/18 07:10 98 Nasal Cannula 2.0 28 08/03/18 04:00 97.7 82 20 136/56 (82) 100 97.7 08/03/18 00:00 98.0 70 20 150/52 (84) 98 98.0 70 08/02/18 22:05 96 135/81 08/02/18 21:00 Nasal Cannula 2.0 08/02/18 20:00 99.8 109 20 135/81 (99) 97 99.8 96 Intake and Output 08/02/18 08/03/18 19:00 07:00 Intake Total 120 ml Output Total 3000 ml Balance -2880 ml Intake Oral 120 ml Hemodialysis UF 3000 ml Laboratory Tests 08/03/18 06:10: White Blood Count 6.6, Red Blood Count 2.69L, Hemoglobin 8.4L, Hematocrit 25.3L , Mean Corpuscular Volume 94, Mean Corpuscular Hemoglobin 31.3H, Mean Corpuscular Hemoglobin Concent 33.3, Red Cell Distribution Width 15.1H, Platelet Count 158, Mean Platelet Volume 6.2L, Neutrophils (%) (Auto) 79.0H, Lymphocytes (%) (Auto) 9.8L, Monocytes (%) (Auto) 8.5, Eosinophils (%) (Auto) 1.8, Basophils (%) (Auto) 0.9, Sodium Level 138, Potassium Level 4.3, Chloride Level 102, Carbon Dioxide Level 27, Blood Urea Nitrogen 46H, Creatinine 6.9H, Estimat Glomerular Filtration Rate 9.7, Glucose Level 99, Calcium Level 8.8, Phosphorus Level 4.5, Magnesium Level 2.2, Total Bilirubin 0.3, Aspartate Amino Transf (AST/SGOT) 10L, Alanine Aminotransferase (ALT/SGPT) 12, Alkaline Phosphatase 105, Total Protein 6.7, Albumin 2.4L, Globulin 4.3, Albumin/ Globulin Ratio 0.6L Height (Feet): 5 Height (Inches): 8.00 Weight (Pounds): 191 General Appearance: no apparent distress, alert, confused Neurologic: responsive, disoriented Tara Ward MD Aug 03, 2018 19:39
[2018-08-03 20:00] VITALS: BP 139/69
[2018-08-03] MEDS: Dyna-Hex 2% Top Sol 2oz TOPIC SCH (20:00)
[2018-08-04] VITALS: BP 123/51
[2018-08-04 04:00] VITALS: BP 140/56
[2018-08-04] MEDS: NovoLOG Insulin Flexpen SUBQ SCH ×3 (06:00→12:00)
--- NOTE | 2018-08-04 06:57 | General Progress Note ---
Assessment/Plan Assessment/Plan # Pancytopenia potentially reactive process versus meds related or related to bone marrow process, hepatitis and hiv both reviewed and are negative, has been acute onset since admission --> stable to improving. DOES HAVE SPLENOMEGALY, now has improved --> us of the abdomen shows splenomegaly++ and can in future repeat as needed --> at this time, does not need a bone marrow biopsy --> on IV iron and epogen sq --> neupogen sq prn if ANC <1000 --> wbc count is better, does not require supportive growth factors # Anemia of chronic disease has been evaluated and reviewed, does have evidence of iron deficiency, has been given iron once d/c --> po iron once discharged as does have iron deficiency component as ferritin is <500 --> ok for epogen --> on iv iron --> appreciate renal recs --> on HD prn # ESRD as per nephro --> on hd prn, has received while in hospital # Cardiomegaly with PVC --> seen by cards # Health care associated pneumonia --> Pulm consulted, appreciate recs --> Pt extubated since 07/28 --> abx as per ID # Encephalopathy -- can communicate --> has improved slowly --> now able to speak Greatly appreciate consultation! Subjective Constitutional: Denies: no symptoms, chills, diaphoresis, fever, malaise, weakness, other HEENT: Denies: no symptoms, eye pain, blurred vision, tearing, double vision, ear pain, ear discharge, nose pain, nose congestion, throat pain, throat swelling, mouth pain, mouth swelling, other Cardiovascular: Denies: no symptoms, chest pain, edema, irregular heart rate, lightheadedness, palpitations, syncope, other Respiratory: Denies: no symptoms, cough, orthopnea, shortness of breath, SOB with excertion, SOB at rest, sputum, stridor, wheezing, other Gastrointestinal/Abdominal: Denies: no symptoms, abdomen distended, abdominal pain, black stools, tarry stools, blood in stool, constipated, diarrhea, difficulty swallowing, nausea, poor appetite, poor fluid intake, rectal bleeding , vomiting, other Genitourinary: Denies: no symptoms, burning, discharge, frequency, flank pain, hematuria, incontinence, pain, urgency, other Neurologic/Psychiatric: Denies: no symptoms, anxiety, depressed, emotional problems, headache, numbness, paresthesia, pre-existing deficit, seizure, tingling, tremors, weakness, other Endocrine: Denies: no symptoms, excessive sweating, flushing, intolerance to cold, intolerance to heat, increased hunger, increased thirst, increased urine, unexplained weight gain, unexplained weight loss, other Allergies: Coded Allergies: No Known Allergies (Verified , 11/24/07) UNABLE TO ASSESS (Unverified , 07/15/18) Subjective Pending stress test. Has been sleeping. Refused iv line insertion. Objective Last 24 Hour Vital Signs Date Time Temp Pulse Resp B/P (MAP) Pulse Ox O2 Delivery O2 Flow Rate FiO2 08/04/18 04:00 97.7 76 19 140/56 (84) 97 97.7 08/04/18 00:00 97.8 75 18 123/51 (75) 98 97.8 08/03/18 21:19 88 139/69 08/03/18 21:00 Nasal Cannula 2.0 08/03/18 20:00 97.5 88 19 139/69 (92) 99 97.5 08/03/18 18:50 Nasal Cannula 2.0 28 08/03/18 18:50 97 Nasal Cannula 2.0 28 08/03/18 16:00 97.8 78 18 127/81 (96) 96 97.8 08/03/18 13:19 Nasal Cannula 2.0 08/03/18 12:00 96.5 95 20 142/71 (94) 98 96.5 08/03/18 09:55 118/54 08/03/18 09:00 Nasal Cannula 2.0 08/03/18 09:00 81 118/54 08/03/18 08:00 98.1 81 20 118/54 (75) 96 98.1 08/03/18 07:10 Nasal Cannula 2.0 28 08/03/18 07:10 98 Nasal Cannula 2.0 28 Intake and Output 08/03/18 08/04/18 19:00 07:00 # Voids 1 Height (Feet): 5 Height (Inches): 8.00 Weight (Pounds): 184 General Appearance: lethargic EENT: normal ENT inspection Neck: normal inspection Cardiovascular: regular rhythm Respiratory/Chest: lungs clear Abdomen: non tender Extremities: non-tender Edema: no edema noted Arm (L), no edema noted Arm (R), no edema noted Leg (L), no edema noted Leg (R), no edema noted Pedal (L), no edema noted Pedal (R) Edema: mild edema Neurologic: no motor/sensory deficits Virgil Ward MD Aug 04, 2018 06:57
[2018-08-04 08:00] VITALS: BP 129/53
[2018-08-04] MEDS: Docusate 100mg/10ml Liq ORAL SCH ×2 (08:57→13:27)
[2018-08-04] MEDS: Metoprolol Tartrate 12.5mg TAB ORAL SCH (08:58)
[2018-08-04] MEDS: Aspirin Baby 81mg NG SCH (08:58)
[2018-08-04] MEDS: Nitroglycerin Patch 0.4mg TDERMAL SCH (08:59)
[2018-08-04] MEDS: Renvela 800mg Pkt ORAL SCH ×2 (08:59→13:28)
[2018-08-04] MEDS ORDERED: LOPRESSOR25 M1 ORAL (09:48)
[2018-08-04] MEDS ORDERED: D50w IV (09:48)
[2018-08-04] MEDS ORDERED: SEROQUEL XR150 MG ORAL (09:48)
[2018-08-04] MEDS ORDERED: NTG1 PATCH TDERMAL (09:48)
[2018-08-04] MEDS ORDERED: NOVOLOG100 UNITS1 SUBQ (09:48)
[2018-08-04] MEDS ORDERED: HIBICLENS118 ML TOPIC (09:48)
[2018-08-04] MEDS ORDERED: ACETAMINOPHEN325 M1 ORAL (09:48)
[2018-08-04] MEDS ORDERED: PROCRIT20000 UNI2 SUBQ (09:48)
[2018-08-04] MEDS ORDERED: ASPIRIN81 MG NG (09:48)
[2018-08-04] MEDS ORDERED: LIPITOR40 MG ORAL (09:51)
--- NOTE | 2018-08-04 10:11 | Nephrology Progress Note ---
Assessment/Plan Problem List: (1) Acute respiratory failure Assessment: on presentation- worsened (2) ESRD (end stage renal disease) on dialysis (3) Hyperkalemia (4) CHF (congestive heart failure) (5) Anemia in chronic kidney disease (CKD) Assessment HTN OOC- ESRD has permacath hyperkalemia Shortness of breath, CHF NOW ACUTE RESPIRATORY FAILURE , ON VENT Encephalopathy condition: 1) ESRD (end stage renal disease) on dialysis (2) Anemia in chronic kidney disease (CKD) (3) Hypertensive kidney disease (4) Encephalopathy (5) DM (6) Hyperlipemia Plan post extubation care Dialysis next 08/04 resume Lopressor PRN Hydralazine in med surg now transfused optimize cardiac status 2 D echo noted adjust BP meds adjust BS meds phos binders asa nitrate DC planning per orders Subjective ROS Limited/Unobtainable: No Objective Objective Last 24 Hour Vital Signs Date Time Temp Pulse Resp B/P (MAP) Pulse Ox O2 Delivery O2 Flow Rate FiO2 08/04/18 09:00 Nasal Cannula 2.0 08/04/18 08:59 129/53 08/04/18 08:58 73 129/53 08/04/18 08:00 96.6 73 20 129/53 (78) 100 96.6 08/04/18 04:00 97.7 76 19 140/56 (84) 97 97.7 08/04/18 00:00 97.8 75 18 123/51 (75) 98 97.8 08/03/18 21:19 88 139/69 08/03/18 21:00 Nasal Cannula 2.0 08/03/18 20:00 97.5 88 19 139/69 (92) 99 97.5 08/03/18 18:50 Nasal Cannula 2.0 28 08/03/18 18:50 97 Nasal Cannula 2.0 28 08/03/18 16:00 97.8 78 18 127/81 (96) 96 97.8 08/03/18 13:19 Nasal Cannula 2.0 08/03/18 12:00 96.5 95 20 142/71 (94) 98 96.5 Intake and Output 08/03/18 08/04/18 19:00 07:00 # Voids 1 Height (Feet): 5 Height (Inches): 8.00 Weight (Pounds): 184 General Appearance: no apparent distress, confused Cardiovascular: normal rate Respiratory/Chest: decreased breath sounds Abdomen: soft Objective no change Mirza Conde MD Aug 04, 2018 10:11
--- NOTE | 2018-08-04 10:27 | Discharge Summary ---
Discharge Summary Hospital Course Date of Admission Jul 15, 2018 at 21:07 Date of Discharge 08/04/18 Admitting Diagnosis C/P,ESRD Reason for Hospitalization: fluid overload, acute hyperkalemia HPI Marce Miller is a 68 year old male who was admitted on Jul 15, 2018 at 21:07 for Chest Pain End Stage Renal Disease Consultations Nephrology: Dr. Conde Hematology: Dr. Ward Pulmonology: Dr. Rogers Cardiology: Dr. Luevano Psychiatry: Dr. Ward Infectious Disease: [facility] Course 68 yo [place] Male with PMH of ESRD (t,tr,s), heart disease, diastolic heart failure, HTN, GERD, and Dementia presented for chest pain. Per EMR documentation , a bystander at patients home had noticed patient was experiencing chest pain and called 911. Upon arrival to the ED patient was found to be volume overloaded with Hyperkalemia, last dialysis was uknown. Patient's hyperkalemia was treated per protocol in the ED and followed with HD per nephrology. Patient also required intubation and send to the ICU until extubation on 07/17. Patient was also found to have a hospitalized acquired PNA and was treated with IV abx for a total of two weeks. Patient's abx were stopped on 08/03/18. Patient also experienced a NSTEMI with toponins <3 during initial hospitalization and cardiology was consulted. Prior to discharge patient had a lexiscan that was negative. Patient experienced metabolic encephalopathy during his hospital stay that improved with dialysis and seroquel. Patient is now back to baseline and ready for discharge to [facility] after HD today. No family available. SW investigated the case and found that patient does have neighbors who know him but do not want to be responsible for his care. Code Status: FULL Discharge Condition Upon Discharge: stable Discharge Disposition Patient was discharged to [facility] Kasey Koch DO Aug 04, 2018 10:27
--- NOTE | 2018-08-04 10:36 | General Progress Note ---
Assessment/Plan Problem List: (1) ESRD (end stage renal disease) on dialysis ICD Codes: N18.6 - End stage renal disease; Z99.2 - Dependence on renal dialysis SNOMED: 090088556 (2) CHF (congestive heart failure) ICD Codes: I50.9 - Heart failure, unspecified SNOMED: 74104529 (3) History of hypertension ICD Codes: Z86.79 - History of hypertension SNOMED: 792539918 (4) Pleural effusion ICD Codes: J90 - Pleural effusion, not elsewhere classified SNOMED: 21285109 (5) Diabetes mellitus ICD Codes: E11.9 - Diabetes mellitus SNOMED: 98060748 (6) Encephalopathy ICD Codes: G93.40 - Encephalopathy, unspecified SNOMED: 94019518 Assessment/Plan S/P NSTEMI type 2, continue ASA, with H/O Heart Disease, card following - Patient had elevated troponins of level 1-2 earlier in hospital course - stress test completed and negative, cards clears patient for d/c Acute metabolic encephalopathy superimposed on dementia and psychosis, improved - patient has been off restraints since 08/01 and doing well, on seroquel , demeaner greatly improved ESRD on HD - patient completed HD yesterday and is on M,W,F schedule, doing well, patient can be discharged after hd today s/p Severe sepsis due to suspected gram negative pneumonia -d/c abx today per ID reqs, completed 14 day course - patient shows no signs of sepsis s/p Acute hypercapnic respiratory failure - resolving, Pulm following Acute on chronic diastolic heart failure,resolved. fluid management with HD. Cards following Hypertensive heart and renal disease, continue metoprolol Pancytopenia likely due to BM suppression, Hematology following Dispo planning - SNF. No family is available CM and SW have been following case patient to be discharged to SNF after HD today Subjective Date patient seen: Aug 04, 2018 Time patient seen: 09:00 Allergies: Coded Allergies: No Known Allergies (Verified , 11/24/07) UNABLE TO ASSESS (Unverified , 07/15/18) All Systems: reviewed and negative except above Subjective RN who speaks in patient language states that patient has been A x O x 3 today and per EMR he has not required any benzo's or haldol. Patient's demeanor has improved. Objective Last 24 Hour Vital Signs Date Time Temp Pulse Resp B/P (MAP) Pulse Ox O2 Delivery O2 Flow Rate FiO2 08/04/18 09:00 Nasal Cannula 2.0 08/04/18 08:59 129/53 08/04/18 08:58 73 129/53 08/04/18 08:00 96.6 73 20 129/53 (78) 100 96.6 08/04/18 04:00 97.7 76 19 140/56 (84) 97 97.7 08/04/18 00:00 97.8 75 18 123/51 (75) 98 97.8 08/03/18 21:19 88 139/69 08/03/18 21:00 Nasal Cannula 2.0 08/03/18 20:00 97.5 88 19 139/69 (92) 99 97.5 08/03/18 18:50 Nasal Cannula 2.0 28 08/03/18 18:50 97 Nasal Cannula 2.0 28 08/03/18 16:00 97.8 78 18 127/81 (96) 96 97.8 08/03/18 13:19 Nasal Cannula 2.0 08/03/18 12:00 96.5 95 20 142/71 (94) 98 96.5 Intake and Output 08/03/18 08/04/18 19:00 07:00 # Voids 1 Height (Feet): 5 Height (Inches): 8.00 Weight (Pounds): 184 General Appearance: WD/WN, no apparent distress - patient resting comfortably in bed EENT: PERRL/EOMI, normal ENT inspection, TMs normal, pharynx normal Neck: non-tender, normal alignment, supple, normal inspection Cardiovascular: normal rate, regular rhythm, regularly irregular, no gallop/ murmur, no JVD - chest wall old sternotomy scar Respiratory/Chest: chest wall non-tender, lungs clear, normal breath sounds, no respiratory distress Abdomen: normal bowel sounds, non tender, soft, no organomegaly Extremities: normal range of motion, non-tender, normal inspection, no calf tenderness, other - scd's in place Edema: no edema noted Arm (L), no edema noted Arm (R), no edema noted Leg (L), no edema noted Leg (R), no edema noted Pedal (L), no edema noted Pedal (R), no edema noted 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 Kasey Koch DO Aug 04, 2018 10:36
--- NOTE | 2018-08-04 11:21 | Cardiology Progress Note ---
Assessment/Plan Status: stable Assessment/Plan Assessment: 1) ESRD (end stage renal disease) on dialysis (2) Anemia in chronic kidney disease (CKD) (3) Hypertensive kidney disease (4) Encephalopathy (5) DM (6) Hyperlipemia Plan: Ok to d/c to SNF today Maintain hemodialysis Echocardiogram --> preserved systolic function, mild valvular regurgitation, mild pulmonary hypertension, elevated filling pressures Stress test prior to dc to evaluate chest pain given multiple cardiac risk factors and NSVT --->NEGATIVE Aspirin Statin No indication for urgent cardiac cath Pulmonary toilet Advance diet Transferred to floor -> mobilize/ambulate/physical therapy Transfusion prn Dispo planning Subjective Cardiovascular: Reports: no symptoms Respiratory: Reports: no symptoms Gastrointestinal/Abdominal: Reports: no symptoms Genitourinary: Reports: no symptoms Subjective No acute events, vitals stable, stress test negative, no CP. For discharge today Objective Last 24 Hour Vital Signs Date Time Temp Pulse Resp B/P (MAP) Pulse Ox O2 Delivery O2 Flow Rate FiO2 08/04/18 11:07 Nasal Cannula 2.0 08/04/18 09:00 Nasal Cannula 2.0 08/04/18 08:59 129/53 08/04/18 08:58 73 129/53 08/04/18 08:00 96.6 73 20 129/53 (78) 100 96.6 08/04/18 04:00 97.7 76 19 140/56 (84) 97 97.7 08/04/18 00:00 97.8 75 18 123/51 (75) 98 97.8 08/03/18 21:19 88 139/69 08/03/18 21:00 Nasal Cannula 2.0 08/03/18 20:00 97.5 88 19 139/69 (92) 99 97.5 08/03/18 18:50 Nasal Cannula 2.0 28 08/03/18 18:50 97 Nasal Cannula 2.0 28 08/03/18 16:00 97.8 78 18 127/81 (96) 96 97.8 08/03/18 13:19 Nasal Cannula 2.0 08/03/18 12:00 96.5 95 20 142/71 (94) 98 96.5 General Appearance: no apparent distress, alert EENT: PERRL/EOMI, normal ENT inspection, TMs normal Neck: non-tender, normal alignment, supple, normal inspection, no JVD Rhythm: NSR Cardiovascular: normal peripheral pulses, normal rate Respiratory/Chest: chest wall non-tender, lungs clear Abdomen: normal bowel sounds, non tender, soft Extremities: normal range of motion, non-tender 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
[2018-08-04 11:35] LABS: HEMATOCRIT 24.1 % (42.0-52.0); HEMOGLOBIN 7.8 G/DL (14.2-18.0); MEAN CORPUSCULAR VOLUME 95 FL (80-99); PLATELET COUNT 120 K/UL (150-450); RED BLOOD COUNT 2.53 M/UL (4.70-6.10); RED CELL DISTRIBUTION WIDTH 15.1 % (11.6-14.8); WHITE BLOOD COUNT 4.4 K/UL (4.8-10.8)
--- NOTE | 2018-08-04 11:52 | Pulmonology Progress Note ---
Assessment/Plan Problems: (1) Encephalopathy (2) Anemia in chronic kidney disease (CKD) (3) ESRD (end stage renal disease) on dialysis (4) HTN (hypertension) (5) Diabetes mellitus (6) Acute hypercapnic respiratory failure Assessment & Plan: resolved Assessment/Plan doing better less confused sputum MRSA on PO antibiotics abx as per ID sliding scale still on restrains dvt prophylaxis. stress test was negative dc to previous custodial Subjective ROS Limited/Unobtainable: Yes Interval Events: confused Allergies: Coded Allergies: No Known Allergies (Verified , 11/24/07) UNABLE TO ASSESS (Unverified , 07/15/18) Objective Last 24 Hour Vital Signs Date Time Temp Pulse Resp B/P (MAP) Pulse Ox O2 Delivery O2 Flow Rate FiO2 08/04/18 11:07 Nasal Cannula 2.0 08/04/18 09:00 Nasal Cannula 2.0 08/04/18 08:59 129/53 08/04/18 08:58 73 129/53 08/04/18 08:00 96.6 73 20 129/53 (78) 100 96.6 08/04/18 04:00 97.7 76 19 140/56 (84) 97 97.7 08/04/18 00:00 97.8 75 18 123/51 (75) 98 97.8 08/03/18 21:19 88 139/69 08/03/18 21:00 Nasal Cannula 2.0 08/03/18 20:00 97.5 88 19 139/69 (92) 99 97.5 08/03/18 18:50 Nasal Cannula 2.0 28 08/03/18 18:50 97 Nasal Cannula 2.0 28 08/03/18 16:00 97.8 78 18 127/81 (96) 96 97.8 08/03/18 13:19 Nasal Cannula 2.0 08/03/18 12:00 96.5 95 20 142/71 (94) 98 96.5 Intake and Output 08/03/18 08/04/18 19:00 07:00 # Voids 1 General Appearance: WD/WN HEENT: normocephalic, atraumatic Respiratory/Chest: chest wall non-tender, lungs clear, normal breath sounds Cardiovascular: normal peripheral pulses, normal rate Abdomen: normal bowel sounds, soft, non tender Genitourinary: normal external genitalia Extremities: no cyanosis Skin: no rash Neurologic/Psychiatric: abnormal gait Lymphatic: no neck adenopathy Laboratory Tests 08/04/18 11:10: White Blood Count 4.4L, Red Blood Count 2.53L, Hemoglobin 7.8L, Hematocrit 24.1L , Mean Corpuscular Volume 95, Mean Corpuscular Hemoglobin 30.9, Mean Corpuscular Hemoglobin Concent 32.4, Red Cell Distribution Width 15.1H, Platelet Count 120L, Mean Platelet Volume 6.5, Neutrophils (%) (Auto) , Lymphocytes (%) (Auto) , Monocytes (%) (Auto) , Eosinophils (%) (Auto) , Basophils (%) (Auto) , Neutrophils % (Manual) [Pending], Lymphocytes % (Manual) [Pending], Platelet Estimate [Pending], Platelet Morphology [Pending], Sodium Level [Pending], Potassium Level [Pending], Chloride Level [Pending], Carbon Dioxide Level [Pending], Blood Urea Nitrogen [Pending], Creatinine [Pending], Estimat Glomerular Filtration Rate [Pending], Glucose Level [Pending], Calcium Level [Pending], Phosphorus Level [Pending], Magnesium Level [Pending] Current Medications Medications (Trade) Dose Ordered Sig/Praveen Route PRN Reason Start Time Stop Time Status Last Admin Dose Admin Acetaminophen (Tylenol) 650 mg Q4H PRN ORAL fever 07/30/18 06:00 08/27/18 21:59 07/30/18 19:01 Aspirin (ASA) 162 mg DAILY NG 07/30/18 09:00 08/23/18 08:59 08/04/18 08:58 Chlorhexidine Gluconate (Leslie-Hex 2%) 1 applic DAILY@1999 TOPIC 07/30/18 20:00 08/25/18 19:59 08/02/18 22:04 Dextrose (Dextrose 50%) 25 ml Q30M PRN IV Hypoglycemia 07/30/18 06:00 08/22/18 09:54 Dextrose (Dextrose 50%) 50 ml Q30M PRN IV hypoglycemia 07/30/18 06:00 08/22/18 09:59 Docusate Sodium (Colace) 100 mg TID ORAL 08/01/18 18:00 08/30/18 17:59 08/04/18 08:57 Epoetin Yao (Procrit (for ESRD on dialysis)) 10,000 units THU-THU-THU SUBQ 07/30/18 21:00 08/15/18 20:59 08/02/18 22:05 Haloperidol Lactate (Haldol) 5 mg Q4H PRN IM Agitation 07/30/18 06:00 08/27/18 21:59 08/03/18 00:16 Hydralazine HCl (Apresoline) 25 mg Q4H PRN ORAL bp over 160 syst 08/01/18 13:45 08/31/18 13:44 Insulin Aspart (NovoLOG) EVERY 6 HOURS SUBQ 07/30/18 06:00 08/16/18 20:59 08/01/18 18:14 Lansoprazole (Prevacid) 30 mg DAILY ORAL 07/31/18 09:00 08/30/18 08:59 08/04/18 08:58 Lorazepam (Ativan 2mg/ml 1ml) 1 mg Q4H PRN IM For Anxiety 07/30/18 06:00 08/04/18 21:59 08/03/18 02:02 Metoprolol Tartrate (Lopressor) 12.5 mg Q12HR ORAL 08/01/18 21:00 08/31/18 20:59 08/04/18 08:58 Nitroglycerin (Ntg) 1 patch DAILY TDERMAL 07/30/18 09:00 08/20/18 10:29 08/04/18 08:59 Quetiapine Fumarate (SEROquel) 25 mg Q6H PRN ORAL For Anxiety 07/30/18 10:00 08/27/18 21:59 07/31/18 09:39 Quetiapine Fumarate (SEROquel) 100 mg Q8HR ORAL 07/30/18 06:00 08/15/18 13:59 08/04/18 06:00 Regadenoson (Lexiscan) 0.4 mg ONCE PRN IV STRESS TEST 08/02/18 18:15 08/04/18 23:59 Sevelamer Carbonate (Renvela) 1,600 mg THREE TIMES A DAY ORAL 07/30/18 09:00 08/15/18 12:59 08/04/18 08:59 Denise Rogers MD Aug 04, 2018 11:52
[2018-08-04 11:57] LABS: ANION GAP 4 mmol/L (5-15); BLOOD UREA NITROGEN 32 mg/dL (7-18); CALCIUM 7.7 MG/DL (8.5-10.1); CARBON DIOXIDE 32 MMOL/L (21-32); CHLORIDE 102 MMOL/L (98-107); CREATININE 5.5 MG/DL (0.55-1.30); POTASSIUM 4.6 MMOL/L (3.5-5.1); SODIUM 138 MMOL/L (136-145)
[2018-08-04 12:00] VITALS: BP 146/62
[2018-08-04 12:00] LABS: PHOSPHORUS 3.9 MG/DL (2.5-4.9)
--- NOTE | 2018-08-04 23:39 | General Progress Note ---
Assessment/Plan Problem List: (1) Encephalopathy due to metabolic factor or toxin SNOMED: 759004287 Assessment/Plan seroquel 100mg tid the pt lack capacity to make decisions. haldol and ativan im Subjective Neurologic/Psychiatric: Reports: anxiety, depressed, emotional problems Allergies: Coded Allergies: No Known Allergies (Verified , 11/24/07) UNABLE TO ASSESS (Unverified , 07/15/18) Subjective the pt is less agitated waxes and wanes Objective Last 24 Hour Vital Signs Date Time Temp Pulse Resp B/P (MAP) Pulse Ox O2 Delivery O2 Flow Rate FiO2 08/04/18 13:02 Nasal Cannula 2.0 08/04/18 12:00 97.9 63 18 146/62 (90) 97 97.9 08/04/18 11:07 Nasal Cannula 2.0 08/04/18 09:00 Nasal Cannula 2.0 08/04/18 08:59 129/53 08/04/18 08:58 73 129/53 08/04/18 08:00 96.6 73 20 129/53 (78) 100 96.6 08/04/18 04:00 97.7 76 19 140/56 (84) 97 97.7 08/04/18 00:00 97.8 75 18 123/51 (75) 98 97.8 Intake and Output 08/03/18 08/04/18 19:00 07:00 # Voids 1 Laboratory Tests 08/04/18 11:10: White Blood Count 4.4L, Red Blood Count 2.53L, Hemoglobin 7.8L, Hematocrit 24.1L , Mean Corpuscular Volume 95, Mean Corpuscular Hemoglobin 30.9, Mean Corpuscular Hemoglobin Concent 32.4, Red Cell Distribution Width 15.1H, Platelet Count 120L, Mean Platelet Volume 6.5, Neutrophils (%) (Auto) , Lymphocytes (%) (Auto) , Monocytes (%) (Auto) , Eosinophils (%) (Auto) , Basophils (%) (Auto) , Differential Total Cells Counted 100, Neutrophils % ( Manual) 71, Lymphocytes % (Manual) 16L, Monocytes % (Manual) 7, Eosinophils % ( Manual) 6H, Basophils % (Manual) 0, Band Neutrophils 0, Platelet Estimate DecreasedL, Platelet Morphology Normal, Hypochromasia 1+, Anisocytosis 1+, Sodium Level 138, Potassium Level 4.6, Chloride Level 102, Carbon Dioxide Level 32, Anion Gap 4L, Blood Urea Nitrogen 32H, Creatinine 5.5H, Estimat Glomerular Filtration Rate 12.7, Glucose Level 119H, Calcium Level 7.7L, Phosphorus Level 3.9, Magnesium Level 2.1 Height (Feet): 5 Height (Inches): 8.00 Weight (Pounds): 184 General Appearance: no apparent distress, alert, confused, agitated Tara Ward MD Aug 04, 2018 23:39
== END 2018-08-04 16:19 | DRG 640 ==
LOC: EDBD 19:04 → EMR 19:30 → UNDOADMIN 21:07 → 2E 21:07 → ICU 21:07 → EDBEDREQ 21:25 → 2E 07-16 17:47 → 2W 07-19 22:29 → ICU 07-20 07:43 → 2W 07-28 21:12 → 4E 07-30 05:05
PROC: 5A1D70Z Performance of Urinary Filtration, Intermittent, Less than 6 Hours Per Day (ICD-10-PCS; principal; 2018-07-15)
PROC: 30233N1 Transfusion of Nonautologous Red Blood Cells into Peripheral Vein, Percutaneous Approach (ICD-10-PCS; 2018-07-16)
PROC: 0BH17EZ Insertion of Endotracheal Airway into Trachea, Via Natural or Artificial Opening (ICD-10-PCS; 2018-07-20)
PROC: 5A1955Z Respiratory Ventilation, Greater than 96 Consecutive Hours (ICD-10-PCS; 2018-07-20)
DX: E87.5 Hyperkalemia (principal); I50.33 Acute on chronic diastolic (congestive) heart failure; N18.6 End stage renal disease; I21.A1 Myocardial infarction type 2; G93.41 Metabolic encephalopathy; J15.212 Pneumonia due to Methicillin resistant Staphylococcus aureus; J69.0 Pneumonitis due to inhalation of food and vomit; J96.02 Acute respiratory failure with hypercapnia; A41.9 Sepsis, unspecified organism; R65.20 Severe sepsis without septic shock; I13.2 Hypertensive heart and chronic kidney disease with heart failure and with stage 5 chronic kidney disease, or end stage renal disease; F03.91 Unspecified dementia, unspecified severity, with behavioral disturbance; D61.818 Other pancytopenia; J44.0 Chronic obstructive pulmonary disease with (acute) lower respiratory infection; N39.0 Urinary tract infection, site not specified; E87.2 Acidosis; M54.9 Dorsalgia, unspecified; E11.22 Type 2 diabetes mellitus with diabetic chronic kidney disease; Z99.2 Dependence on renal dialysis; K21.9 Gastro-esophageal reflux disease without esophagitis; F29 Unspecified psychosis not due to a substance or known physiological condition; D63.1 Anemia in chronic kidney disease; E78.5 Hyperlipidemia, unspecified; B96.4 Proteus (mirabilis) (morganii) as the cause of diseases classified elsewhere; B95.5 Unspecified streptococcus as the cause of diseases classified elsewhere
CPT/HCPCS: 36415; 36600; 71045; 71250; 74018; 74230; 76700; 78452; 80048; 80053; 80061; 80076; 80202; 81003; 82140; 82550; 82607; 82728; 82746; 82803; 82962; 82977; 83036; 83540; 83550; 83690; 83735; 83880; 84100; 84443; 84484; 84550; 85007; 85025; 85610; 85651; 85730; 86140; 86703; 86705; 86709; 86803; 86850; 86900; 86901; 86920; 87040; 87070; 87086; 87181; 87205; 87340; 93005; 93017; 93306; 93970; 94002; 94003; 94640; 94660; 94664; 94760; 96374; 96375; 99285; J1815; J2785